=== PATIENT | female | born 1945 | race Caucasian/White ===

== ENCOUNTER → 2018-03-13 07:49 | Outpatient (CLI) | payer MEDICARE, OTHER, SELFPAY | PROVIDERS: Family Provider Internal Medicine; PCP Internal Medicine; Visit Provider Internal Medicine | DX: R09.89 Other specified symptoms and signs involving the circulatory and respiratory systems (principal) | CPT/HCPCS: 93880 ==

== ENCOUNTER → 2018-08-17 14:30 | Outpatient (CLI) | payer MEDICARE, OTHER, SELFPAY ==
[2017-07-14 15:48] VITALS: BMI 27.5
--- NOTE | 2018-08-17 14:36 | RAD_ITS ---
STUDY: X-RAY CHEST REASON FOR EXAM: Female, 72 years old. Cough. History of bronchitis. TECHNIQUE: PA and lateral views of the chest. COMPARISON: PA and lateral chest x-ray March 08, 2016; CTA chest/thorax July 14, 2017 FINDINGS: The lungs are poorly expanded, and there is generalized crowding with minor bibasilar subsegmental atelectasis. No lobar consolidation. There is no demonstrated pleural abnormality. Normal size heart. Normal mediastinum and marie. Normal visualized pulmonary arteries. Normal visualized aortic arch and descending thoracic aorta. There are stable multilevel degenerative changes of the visualized thoracic spine. 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 Surgical clips of prior cholecystectomy project in the right upper quadrant of the abdomen. RAD/Chest PA and Lateral IMPRESSION: Poor inspiratory effort with crowding and minor bibasilar atelectasis. Electronically Signed: Raul Felder MD at 14:43 EST , Service support ,
--- OUTSIDE RECORDS SUMMARY | 2018-10-22 09:39 | XMS RPT_ITS | Continuity of Care Document ---
:1945 Author Organization [facility] Address [facility] [address] [place] [address] Phone Care Team Providers Name Role Phone Lorena Arana DO Unavailable Trang PIEDRA, Dr. Cooper Unavailable Guido Jacinto Unavailable Taylor PIEDRA, Jin Becerril Unavailable [facility], [facility] Unavailable Tejal PIEDRA, Stuart Hensley Unavailable Dr. John Mcclain DO Unavailable Rosales PIEDRA, Stuart Sandra Unavailable Eliseo Mcgarry Unavailable Terese Nunez Unavailable Unavailable ANDREA Manzano Unavailable Unavailable Iveth Delgado Unavailable Unavailable Long Helen MENDEZ Unavailable Unavailable SlaZo daniels LPN Unavailable Unavailable Gladis Redmond Unavailable Unavailable Terri Hernandez Unavailable Unavailable Unavailable Unavailable Problems Name Dates Details Abdominal pain, acute, right lower quadrant (R10.31, 789.03) Status: Active Abnormal lung sounds (R09.89, 786.7) Status: Active Abnormal lung sounds (R09.89, 786.7) Status: Active Abnormal mammogram (R92.8, 793.80) Status: Active Abortions/Miscarriages Comments: Miscarriages, 2 Status: Active Acute recurrent ethmoidal sinusitis (J01.21, 461.2) Status: Active Allergic rhinitis (J30.9, 477.9) 2011 Comments: will get on claritin and nasal steriod spray Status: Active Allergy to contrast media (used for diagnostic x-rays) (Z91.041, V15.08) Status: Active Annual Medicare Phyiscal WITHOUT abnormal findings (Renamed from Encounter for general adult medical examination without abnormal findings) (Z00.00, V70.9) Status: Active Annual Medicare Phyiscal WITHOUT abnormal findings (Renamed from Encounter for general adult medical examination without abnormal findings) (Z00.00, V70.9) Status: Active Arthralgia of multiple sites (M25.50, 719.49) Status: Active Arthritis (M19.90, 716.90) 1995 Status: Active Bilateral carotid bruits (R09.89, 785.9) Status: Active Bladder Problems Comments: Bladder repair x2 Status: Active Bladder prolapse, female, acquired (N81.10, 618.01) Comments: s/p surgery not going back for sling Status: Active BMI 26.0-26.9,adult (Z68.26, V85.22) Status: Active BMI 26.0-26.9,adult (Z68.26, V85.22) Status: Active BMI 27.0-27.9,adult (Z68.27, V85.23) Status: Active BMI 28.0-28.9,adult (Z68.28, V85.24) Status: Active Breast cancer screening (Z12.31, V76.10) Status: Active Breast screening (Z12.39, V76.10) Status: Active Bronchitis (J40, 490) Status: Active Carotid stenosis, bilateral (I65.23, 433.10) Comments: mild R and moderate L- take asa 81mg daily03/18 last doppler Status: Active Chest pain (R07.9, 786.50) Status: Active Chronic GERD (K21.9, 530.81) Status: Active Chronic nonallergic rhinitis (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.0, 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.0) Status: Active Chronic sinusitis (J32.9, 473.9) Comments: with randall Bullosa , recent ER visit for sinus infection given z pack Status: Active Cough (R05, 786.2) Status: Active Cough (R05, 786.2) Comments: improving,needs ongoing Pul function testing Status: Active Cough (R05, 786.2) Status: Active Degenerative Disc Disease - 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.52) Status: Active Deliveries (Parity) Comments: 2 Status: Active Diabetes mellitus type 2, uncontrolled, without complications (E11.65, 250.02) Status: Active Diabetes mellitus type II, controlled, with no complications (E11.9, 250.00) Status: Active 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, 722.10) Comments: sees comphrensive pain management in [place]- dr poole-- s/p injection recently Status: Active Dry skin (L85.3, 701.1) Status: Active Dysuria (R30.0, 788.1) Status: Active Dysuria (R30.0, 788.1) Comments: recent uti - having some residual dysuria will ck ua and cx again ( last infection ua unimpressive but cx post) Status: Active Elevated blood-pressure reading without diagnosis of hypertension (R03.0, 796.2) Comments: i think related to pain right now -- s/p B/L TKR 3mo and HNP lumbar flare as well Status: Active Elevated LFTs (Renamed from Elevated liver function tests) (R94.5, 790.6) Status: Active Encounter for annual general medical examination with abnormal findings in adult (Z00.01, V70.0) Status: Active Encounter for screening for malignant neoplasm of colon (Renamed from Special screening for malignant neoplasms, colon) (Z12.11, V76.51) Status: Active Encounter for screening for malignant neoplasm of colon (Renamed from Special screening for malignant neoplasms, colon) (Z12.11, V76.51) Status: Active Encounter for screening mammogram for breast cancer (Renamed from Encounter for screening mammogram for malignant neoplasm of breast) (Z12.31, V76.12) Status: Active Encounter for screening mammogram for breast cancer (Renamed from Encounter for screening mammogram for malignant neoplasm of breast) (Z12.31, V76.12) Status: Active Family history of brain aneurysm (V17.1) Status: Active Fatty liver (K76.0, 571.8) Status: Active Female bladder prolapse (N81.10, 618.01) Comments: refer tjo dr Jacinto Status: Active Goiter (E04.9, 240.9) Status: Active Hematuria (R31.9, 599.70) Comments: 05/25/17-Trace of blood Status: Active Hiatal hernia (K44.9, 553.3) Status: Active History of Helicobacter pylori infection (Z86.19, V12.09) Comments: scope end 2013 Dr. Ventura Status: Active Hot flashes (R23.2, 782.62) Status: Active Influenza vaccination declined (Renamed from Refused influenza vaccine) (Z28.21, V64.06) Status: Active Insulin resistance (E88.81, 277.7) Status: Active Irritable bowel syndrome (K58.9, 564.1) Comments: stable Status: Active Irritable bowel syndrome with diarrhea (K58.0, 564.1) Status: Active Last Menstrual Period 1973 Status: Active Localized, primary osteoarthritis of lower leg (M17.10, 715.16) Status: Active Low back pain potentially associated with radiculopathy (M54.5, 724.2) Status: Active Mixed hyperlipidemia (E78.2, 272.2) Comments: recomending start fish oil she purchased and clean up dietoff statins since surgery 05/18 Status: Active Need for prophylactic vaccination and inoculation against influenza (Renamed from Need for immunization against influenza) (Z23, V04.81) Status: Active Nonsmoker (Z78.9, V49.89) Status: Active Nonsmoker (Z78.9, V49.89) Status: Active Nutritional counseling (Z71.3, V65.3) Status: Active Osteoarthritis (M19.90, 715.90) Status: Active Osteoarthritis, generalized (M15.9, 715.00) Comments: planning on TKR- b/l in may with dr royal Status: Active Osteopenia (M85.80, 733.90) Comments: dexa up to date - last one 2014 Status: Active Other cardiac sounds (R01.2, 785.3) Status: Active Other intervertebral disc degeneration, lumbar region (M51.36, 722.52) Comments: going to get injections soon from pain management in [place] Status: Active Pain of right hand (M79.641, 729.5) Status: Active Palpitations (R00.2, 785.1) Status: Active Pneumococcal vaccination given (Z23, V06.6) Status: Active Postmenopausal (Z78.0, V49.81) Status: Active Post-menopausal (Z78.0, V49.81) Status: Active Postmenopausal (Renamed from Postmenopausal status) (Z78.0, V49.81) Status: Active Pregnancies () Comments: 4 Status: Active Reflux gastritis (K29.60, 535.40) Status: Active Retinal hemorrhage, bilateral (H35.63, 362.81) Comments: seeing Retinol specialist in [place] Status: Active Sinus congestion (R09.81, 478.19) Comments: worsening with surgery pending Status: Active Sinusitis, acute (J01.90, 461.9) Status: Active SOB (shortness of breath) (R06.02, 786.05) Status: Active SOB (shortness of breath) on exertion (R06.02, 786.05) -Apr-2012 Comments: worked in [employer] for years, recent chest with copd, will get pft's treat as if COPD flareMy heart races and I feel out of breath all the time. I t is worse recently but has been ongoing for a wh ile-- all worked up in past - all negative- stress test and echo all normal-- symbicort helps breathing but it gets worse when laying down -- gerd related - on PPi and symbicort - Status: Active Thyroid nodule (E04.1, 241.0) Comments: endo states stable/ no significant change- seeing rene - Status: Active Thyroid nodule (E04.1, 241.0) Comments: followed by management rep Status: Active Unspecified Diagnosis Status: Active Unspecified Diagnosis Status: Active Unspecified Diagnosis Status: Active Unspecified Diagnosis Status: Active Unspecified Diagnosis Status: Active Urgency of urination (R39.15, 788.63) Status: Active UTI (urinary tract infection) (N39.0, 599.0) Comments: >100,000 enterococus Status: Active UTI symptoms (R39.9, 788.99) Status: Active Vaginal irritation (N89.8, 623.9) Comments: i think most of irrition coming from the prolaspe itself will treat yeast empirically bc of rubbing adnheat to prevent complication for surgery to be cancelled Status: Active Vitamin D deficiency, unspecified (E55.9, 268.9) Comments: increase rx to twice weekly-- now once weekly Status: Active Medications Name Dates Details Albuterol Sulfate (2.5 MG/3ML) 0.083% Inhalation Nebulization Solution 1 (one) Nebulized Soln q6hrs for 0 days Quantity: 1 {Package} Refills: 6 Ordered:17-Aug-2018 Iveth Delgado Start : 17-Aug-2018 Active CLIMARA PRO, 0.045-0.015MG/DAY (Transdermal Patch Weekly) 1 Patch Weekly weekly for 0 days Quantity: 4 {Patch_Weekly} Refills: 3 Ordered:19-Jun-2008 Iveth Manzano LPN Start : 19-Jun-2008 Active Medrol 4 MG Oral Tablet Therapy Pack 1 (one) Milligram TAD for 0 days Quantity: 1 {Package} Refills: 0 Ordered:17-Aug-2018 Iveth Delgado Start : 17-Aug-2018 Active OMEPRAZOLE, 20MG (Oral Capsule Delayed Release) [address] bid for 0 days Quantity: 30 {Capsule} Refills: 2 Ordered:21-Nov-2013 Jose Arana DO, DO, Kathleen Start : 21-Nov-2013 Active Simvastatin 40 MG Oral Tablet 1 Tablet qd for 0 days Quantity: 30 {Tablet} Refills: 6 Ordered:18-Apr-2017 Jose Arana DO, DO, Kathleen Start : 18-Apr-2017 Active Vitamin D3 49891 UNIT Oral Capsule 1 Capsule once a week for 0 days Quantity: 8 {Capsule} Refills: 5 Ordered:09-Feb-2018 Jose Arana DO, DO, Kathleen Start : 09-Feb-2018 Active Zithromax Z-Priyanka 250 MG Oral Tablet 1 (one) Tablet TAD for 0 days Quantity: 1 {Package} Refills: 0 Ordered:17-Aug-2018 Iveth Delgado Start : 17-Aug-2018 Active ACTONEL, 150MG (Oral Tablet) 1 (one) Tablet q month for 0 days Quantity: 3 {Tablet} Refills: 3 Ordered:10-Jun-2010 Iveth Manzano LPN Start : 04-Jul-2008 End : 10-Jun-2010 Inactive Augmentin 875-125 MG Oral Tablet 1 (one) Tablet bid for 14 days Quantity: 28 {Tablet} Refills: 0 Ordered:11-Jul-2017 Iveth Delgado Start : 11-Jul-2017 End : 25-Jul-2017 Inactive AZO Cranberry Urinary Tract 250-60 MG Oral Capsule 1 (one) Capsule Capsule TAd for 0 days Quantity: 30 {Capsule} Refills: 0 Ordered:09-Jul-2016 Iveth Manzano LPN Start : 16-Mar-2016 End : 09-Jul-2016 Inactive BACTRIM DS, 800-160MG (Oral Tablet) 1 Tablet bid for 7 days Quantity: 14 {Tablet} Refills: 0 Ordered:27-Nov-2010 Lis COOPERMirian Start : 27-Nov-2010 End : 04-Dec-2010 Inactive BUDESONIDE, 32MCG/ACT (Nasal Suspension) 1 (one) Suspension Suspension 2 sprays each nostril daily for 0 days Quantity: 1 {Each} Refills: 3 Ordered:24-Oct-2014 LUIS Chance Start : 08-Aug-2014 End : 24-Oct-2014 Inactive Cefadroxil 500 MG Oral Capsule 1 (one) Capsule bid for 7 days Quantity: 14 {Capsule} Refills: 0 Ordered:27-Feb-2016 Mikkicomfortclarissa COOPERMirian Start : 27-Feb-2016 End : 05-Mar-2016 Inactive Cipro 500 MG Oral Tablet 1 (one) Tablet bid for 7 days Quantity: 14 {Tablet} Refills: 0 Ordered:19-Mar-2016 Conchisclarissa COOPERMirian Start : 19-Mar-2016 End : 26-Mar-2016 Inactive CIPRO, 500MG (Oral Tablet) 1 (one) Tablet Twice daily for 0 days Quantity: 20 {Tablet} Refills: 0 Ordered:19-Apr-2007 Iveth Manzano LPN Start : 19-Apr-2007 End : 20-Jun-2007 Inactive Ciprofloxacin HCl 500 MG Oral Tablet 1 (one) Tablet PO BID for 3 days Quantity: 6 {Tablet} Refills: 0 Ordered:13-Dec-2017 Iveth Delgado Start : 13-Dec-2017 End : 16-Dec-2017 Inactive CLARITIN, 10MG (Oral Capsule) 1 (one) Capsule Capsule daily for 0 days Quantity: 30 {Capsule} Refills: 0 Ordered:24-Oct-2014 LUIS Chance Start : 08-Aug-2014 End : 24-Oct-2014 Inactive CLINDAMYCIN HCL, 300MG (Oral Capsule) 1 (one) Capsule q6hrs for 7 days Quantity: 28 {Capsule} Refills: 0 Ordered:27-Jan-2016 Mirian Hartley CNP Start : 27-Jan-2016 End : 03-Feb-2016 Inactive Dexilant 60 MG Oral Capsule Delayed Release 1 (one) Capsule DR Capsule DR daily for 28 days Quantity: 28 {QS} Refills: 3 Ordered:09-Jul-2016 Iveth Manzano LPN Start : 27-Jan-2016 End : 09-Jul-2016 Inactive Diflucan 150 MG Oral Tablet 1 (one) Tablet once, repeat in 2 days if not better for 5 days Quantity: 2 {Tablet} Refills: 0 Ordered:21-Dec-2017 Jose Arana DO, DO, Kathleen Start : 21-Dec-2017 End : 26-Dec-2017 Inactive DIFLUCAN, 100MG (Oral Tablet) 1 (one) Tablet Daily for 0 days Quantity: 14 {Tablet} Refills: 0 Ordered:18-Dec-2007 Iveth Manzano LPN Start : 18-Dec-2007 End : 26-Jan-2008 Inactive DYMISTA, 137-50MCG/ACT (Nasal Suspension) 1 Suspension each nostril daily for 0 days Quantity: 1 {Suspension} Refills: 0 Ordered:21-Nov-2013 Helen Grayson LPN Start : 20-Nov-2012 End : 21-Nov-2013 Inactive Flonase 50 MCG/ACT Nasal Suspension 2 (two) spray each nostrilqd for 30 days Quantity: 1 {Sachet} Refills: 0 Ordered:29-Apr-2016 Jose Arana DO, DO, Kathleen Start : 29-Apr-2016 End : 29-May-2016 Inactive GUAIATUSSIN AC, 100-10MG/5ML (Oral Syrup) 1 Syrup 1 tsp qhs for 0 days Quantity: 6 {Ounce(s)} Refills: 0 Ordered:03-Oct-2007 Iveth Manzano LPN Start : 03-Oct-2007 End : 18-Dec-2007 Inactive HydrOXYzine Pamoate 25 MG Oral Capsule 1 (one) Capsule Capsule q 8 hr prn for 0 days Quantity: 30 {Capsule} Refills: 0 Ordered:09-Jul-2016 Iveth Manzano LPN Start : 08-Apr-2016 End : 09-Jul-2016 Inactive Comments:substituted for atarax LAC-HYDRIN, 12% (External Lotion) TAD Lotion QD- BID PRN for 0 days Quantity: 1 {LARGE_BOTTLE} Refills: 0 Ordered:13-Nov-2012 Iveth Manzano LPN Start : 06-Oct-2011 End : 13-Nov-2012 Inactive Comments:APPLY ALL OVER BODY WHEN DAMP AFTER SHOWER AVOID- MOUTH AND NARES AND EYES /FACE Levaquin 500 MG Oral Tablet 1 Tablet daily for 10 days Quantity: 10 {Tablet} Refills: 0 Ordered:18-Jan-2017 MonroehuyTerri Start : 18-Jan-2017 End : 28-Jan-2017 Inactive LOTRISONE, 1-0.05% (External Cream) APPLY TO AFFECTED AREA UNDER Cream BID for 0 days Quantity: 45 {Cream} Refills: 1 Ordered:13-Nov-2012 Iveth Manzano LPN Start : 06-Oct-2011 End : 13-Nov-2012 Inactive Comments:--UNDER BREAST AND LEG USE SPARINGLY METAXALONE, 800MG (Oral Tablet) 1 Tablet tid prn for 0 days Quantity: 30 {Tablet} Refills: 0 Ordered:21-Nov-2013 Helen Grayson LPN Start : 22-May-2013 End : 21-Nov-2013 Inactive Mucinex 600 MG Oral Tablet Extended Release 12 Hour 1 (one) Tablet ER 12HR Tablet ER 12HR bid for 0 days Quantity: 60 {Tablet} Refills: 0 Ordered:09-Jul-2016 Iveth Manzano LPN Start : 05-Mar-2016 End : 09-Jul-2016 Inactive NEXIUM, 40MG (Oral Capsule Delayed Release) 1 (one) Capsule DR Daily for 0 days Refills: 0 Ordered:07-Jul-2011 Iveth Manzano LPN Start : 11-Dec-2010 End : 07-Jul-2011 Inactive ONGLYZA, 5MG (Oral Tablet) 1 Tablet qd for 0 days Quantity: 30 {Tablet} Refills: 3 Ordered:07-Jul-2011 Iveth Manzano LPN Start : 28-Apr-2011 End : 07-Jul-2011 Inactive PredniSONE 10 MG Oral Tablet 1 (one) Tablet bid x 3 days, 1 daily x 3 days, 1/2 daily x 3 days for 0 days Quantity: 12 {Tablet} Refills: 0 Ordered:27-Oct-2017 Iveth Manzano LPN Start : 11-Jul-2017 End : 27-Oct-2017 Inactive Comments:with food PRENATABS FA (Oral Tablet) 1 QD Inactive PRILOSEC OTC, 20MG (Oral Tablet Delayed Release) [address] QD for 0 days Refills: 0 Ordered:28-Apr-2011 Iveth Manzano LPN Start : 07-Oct-2010 End : 28-Apr-2011 Inactive PRILOSEC OTC, 20MG (Oral Tablet Delayed Release) 1 qd for 0 days Refills: 0 Ordered:08-Feb-2008 Iveth Manzano LPN End : 08-Feb-2008 Inactive PULMICORT FLEXHALER, 180MCG/ACT (Inhalation Inhaler) 1 (one) Inhaler Twice daily for 0 days Quantity: 1 {Inhaler} Refills: 0 Ordered:20-Jun-2007 Iveth Manzano LPN Start : 20-Jun-2007 End : 19-Jun-2008 Inactive Singulair 10 MG Oral Tablet 1 (one) Tablet Tablet qhs for 0 days Quantity: 30 {Tablet} Refills: 6 Ordered:29-Apr-2016 Jose Arana DO, DO, Kathleen Start : 29-Apr-2016 End : 29-Apr-2016 Inactive Comments:heart races SOMA, 350MG (Oral Tablet) 1 Tablet tid prn for 0 days Quantity: 30 {Tablet} Refills: 0 Ordered:28-Apr-2011 Iveth Manzano LPN Start : 04-Jan-2011 End : 28-Apr-2011 Inactive Comments:thirty Symbicort 160-4.5 MCG/ACT Inhalation Aerosol 2 (two) Aerosol bid for 0 days Quantity: 1 {Inhaler} Refills: 0 Ordered:09-Jul-2016 Iveth Manzano LPN Start : 27-Jan-2016 End : 09-Jul-2016 Inactive VASCEPA, 1GM (Oral Capsule) 4 Capsule qd for 30 days Quantity: 120 {Capsule} Refills: 4 Ordered:21-Nov-2013 Helen Grayson LPN Start : 27-Aug-2013 End : 21-Nov-2013 Inactive VYTORIN, 10-20MG (Oral Tablet) 1 (one) Tablet Daily for 0 days Quantity: 30 {Tablet} Refills: 2 Ordered:10-Jun-2010 Iveth Manzano LPN Start : 20-Jun-2007 End : 10-Jun-2010 Inactive WELCHOL, 625MG (Oral Tablet) 3 (three) Tablet bid for 0 days Quantity: 180 {Tablet} Refills: 3 Ordered:12-Feb-2013 Iveth Manzano LPN Start : 08-Jun-2012 End : 12-Feb-2013 Inactive Zetia 10 MG Oral Tablet 1 (one) Tablet Tablet qd for 30 days Quantity: 30 {Tablet} Refills: 3 Ordered:11-Oct-2016 MonroehuyTerri Start : 20-Jun-2015 End : 11-Oct-2016 Inactive Aspirin Adult Low Dose 81 MG Oral Tablet Delayed Release 1 (one) Tablet qd for 360 days Quantity: 30 {Tablet} Refills: 0 Ordered:07-Dec-2017 Gladis Redmond Start : 27-Jul-2017 End : 07-Dec-2017 Discontinued BENTYL, 20MG (Oral Tablet) 1 (one) Tablet Tablet q 8 hr prn abd pain for 0 days Quantity: 60 {Tablet} Refills: 0 Ordered:10-Nov-2015 Iveth Manzano LPN Start : 10-Nov-2015 End : 03-Mar-2018 Discontinued Comments:This order discontinued per [facility]. CIPRO, 250MG (Oral Tablet) 1 (one) Tablet Twice daily for 0 days Quantity: 20 {Tablet} Refills: 0 Ordered:09-Jan-2007 Abril Stoner Start : 09-Jan-2007 End : 19-Jan-2007 Discontinued ERGOCALCIFEROL, 40265UGLL (Oral Capsule) 1 Capsule q week for 0 days Quantity: 24 {Capsule} Refills: 3 Ordered:06-Oct-2011 Jose Arana DO, DO, Kathleen Start : 06-Oct-2011 End : 06-Oct-2011 Discontinued MetFORMIN HCl ER 500 MG Oral Tablet Extended Release 24 Hour 1 (one) Tablet ER 24HR daily for 0 days Quantity: 30 {Tablet} Refills: 4 Ordered:10-Feb-2016 Zo Gómez LPN Start : 05-Jan-2016 End : 10-Feb-2016 Discontinued PredniSONE 20 MG Oral Tablet 3 (three) Tablet Tablet 6 hr after contrast given for 0 days Quantity: 3 {Tablet} Refills: 0 Ordered:25-May-2017 Zo Gómez LPN Start : 17-Jan-2017 End : 25-May-2017 Discontinued ProAir HFA 108 (90 Base) MCG/ACT Inhalation Aerosol Solution 2 (two) Aerosol Soln Aerosol Soln qhs for 0 days Quantity: 1 {Inhaler} Refills: 0 Ordered:10-Feb-2016 Zo Gómez LPN Start : 19-Nov-2014 End : 10-Feb-2016 Discontinued ProAir RespiClick 108 (90 Base) MCG/ACT Inhalation Aerosol Powder Breath Activated 2 (two) puff q 6 hrs prn for 0 days Quantity: 1 {Box} Refills: 0 Ordered:07-Dec-2017 Gladis Redmond Start : 11-Jul-2017 End : 07-Dec-2017 Discontinued PROTONIX, 40MG (Oral Tablet Delayed Release) 1 (one) Tablet DR Daily for 0 days Refills: 0 Ordered:20-Jun-2007 Kalyn Matamoros Start : 20-Jun-2007 End : 03-Oct-2007 Discontinued VICODIN, 5-500MG (Oral Tablet) 1 Tablet q 6 hr prn for 0 days Quantity: 30 {Tablet} Refills: 0 Ordered:04-Jan-2011 Iveth Manzano LPN Start : 04-Jan-2011 End : 13-Nov-2012 Discontinued Comments:This order discontinued per [facility]. VICOPROFEN, 7.5-200MG (Oral Tablet) 1 Tablet q 6 hr prn for 0 days Quantity: 30 {Tablet} Refills: 0 Ordered:03-Aug-2018 Iveth Manzano LPN Start : 18-Nov-2011 End : 03-Aug-2018 Discontinued Comments:This order discontinued per [facility]. ZITHROMAX Z-PRIYANKA, 250MG (Oral Tablet) tad Tablet qd for 0 days Quantity: 1 {Package} Refills: 0 Ordered:19-Nov-2014 Julieta Vance LPN Start : 13-Nov-2014 End : 19-Nov-2014 Discontinued Allergies and Adverse Reactions Name Dates Details Animal Dander (Allergy) Status: Active Nuts (Allergy) Status: Active Tetracyclines (Allergy) Status: Active Trees (Allergy) Status: Active Past Medical History Name Dates Details Abdominal pain (R10.9, 789.00) Comments: lower abdomenafter internal pelvic procedure Status: Inactive as of 24-Oct-2014 Abnormal chest xray (R93.89, 793.2) Comments: showing copd, last spirometry Aug 2014 was normal stable on symbicort proair respiclick Status: Inactive as of 09-Jul-2016 Abnormal EKG (R94.31, 794.31) Status: Inactive as of 09-Jul-2016 Abnormal finding of blood chemistry, unspecified (R79.9, 790.6) Status: Inactive as of 09-Jul-2016 Abnormal findings on diagnostic imaging of other specified body structures (R93.8, 793.99) Status: Inactive as of 08-Apr-2016 Abnormal glucose tolerance test (R73.09, 790.22) Status: Inactive as of 08-Apr-2016 Acid indigestion (536.8) Status: Inactive as of 03-Aug-2018 Acute pain of right knee (M25.561, 719.46) Comments: cant do nsaid with bleeding eye -- so ice iceon sched for b/l knee replacmetn Status: Inactive as of 03-Aug-2018 Allergic rhinitis (J30.9, 477.9) Status: Inactive as of 03-Aug-2018 Aspiration pneumonia (J69.0, 507.0) Comments: Ate pizza before bedtime Status: Inactive as of 08-Apr-2016 Back pain (M54.9, 724.5) Comments: sees Dr. [facility] Status: Inactive as of 09-Jul-2016 Bilateral low back pain without sciatica (M54.5, 724.2) Status: Inactive as of 08-Apr-2016 BMI 25.0-25.9,adult (Z68.25, V85.21) Status: Inactive as of 27-Jul-2017 BMI 27.0-27.9,adult (Z68.27, V85.23) Status: Inactive as of 03-Aug-2018 Bone pain (M89.8X9, 733.90) Status: Resolved as of 27-Oct-2017 Bronchitis (J40, 490) Status: Resolved as of 11-Dec-2008 Bronchospasm (J98.01, 519.11) Status: Inactive as of 25-Sep-2015 Calf pain (M79.669, 729.5) Comments: continue Ibuprofen and home vicoden if needed - r/o clot - if pain persists have her refered to PT. Hx of chronic back pain that is also worsening. Hx of pain doc. Pt to follow up if persists - Status: Resolved as of 11-Dec-2008 Candidiasis, unspecified (B37.9, 112.9) Comments: will refer to Dr Signs if no improvement after tx sugars Status: Resolved as of 11-Dec-2008 Chest pain (R07.9, 786.59) Status: Resolved as of 27-Apr-2012 Colicky RUQ abdominal pain (R10.11, 789.01) Status: Inactive as of 08-Apr-2016 Cough (R05, 786.2) Status: Inactive as of 09-Jul-2016 Diarrhea (R19.7, 787.91) Status: Inactive as of 12-Feb-2013 Diarrhea, unspecified type (R19.7, 787.91) Comments: scope 5yrs agosuspsect IBS-- Status: Inactive as of 03-Aug-2018 Diverticulitis (K57.92, 562.11) 2004 Status: Resolved as of 14-Jan-2009 Diverticulosis of colon (K57.30, 562.10) Status: Inactive as of 03-Aug-2018 DRY SKIN DERMATITIS (698.8) Comments: SEVERE DRY SKIN Status: Inactive as of 24-Oct-2014 Dysphagia, unspecified (R13.10, 787.20) Comments: s/p dilitation-- rec ppi rest of life Status: Resolved as of 07-Oct-2010 Dysuria (R30.0, 788.1) 13-Mar-2012 Status: Inactive as of 24-Oct-2014 Encounter for Medicare annual wellness exam (Z00.00, V70.0) Status: Inactive as of 24-Oct-2014 Epigastric pain (R10.13, 789.06) Comments: h/o h pyori Status: Inactive as of 24-Oct-2014 Eustachian tube dysfunction (H69.80, 381.81) Status: Inactive as of 09-Jul-2016 Facial pressure (R68.89, 780.99) Status: Inactive as of 27-Jul-2017 FATIGUE (R53.83, 780.79) Comments: and snore Status: Inactive as of 09-Jul-2016 Fever, unspecified (R50.9, 780.60) Status: Resolved as of 13-Apr-2012 GERD (gastroesophageal reflux disease) (K21.9, 530.81) Status: Inactive as of 09-Jul-2016 Grieving (F43.21, 309.0) Status: Resolved as of 09-Feb-2018 Hair abnormality (L67.9, 704.2) Comments: DR Montes De Oca PUT HER ON VITAMINS Status: Inactive as of 25-Sep-2015 Headache (R51, 784.0) 1980 Status: Inactive as of 24-Oct-2014 Hematuria (R31.9, 599.7) Status: Resolved as of 11-Dec-2008 Hematuria, unspecified (R31.9, 599.70) Status: Inactive as of 27-Oct-2017 Herpes Zoster 2004 Comments: Laura Status: Inactive as of 24-Oct-2014 Hyperlipidemia (E78.5, 272.4) Status: Inactive as of 09-Jul-2016 Knee pain (M25.569, 719.46) Comments: sees Andre at [facility] Status: Inactive as of 09-Jul-2016 Low back pain (M54.5, 724.2) 1997 Status: Resolved as of 11-Dec-2008 Low HDL (under 40) (E78.6, 272.5) Status: Inactive as of 24-Oct-2014 Mammogram 2004 Status: Inactive as of 24-Oct-2014 Muscle Spasm (M62.838, 728.85) Status: Inactive as of 09-Jul-2016 Nausea (R11.0, 787.02) Status: Inactive as of 12-Feb-2013 Need for vaccination against Streptococcus pneumoniae (Z23, V03.82) Status: Inactive as of 24-Oct-2014 Neoplasm of uncertain behavior of skin (D48.5, 238.2) Status: Inactive as of 24-Oct-2014 Osteopenia (M85.80, 733.90) Comments: LAST DEXA 07-10 Status: Resolved as of 06-Oct-2011 Otalgia, unspecified ear (H92.09, 388.70) Status: Inactive as of 24-Oct-2014 Pain (R52, 780.96) Comments: back sees pain specilaist, [facility] [place] Status: Inactive as of 24-Oct-2014 Pain in unspecified joint (M25.50, 719.40) Status: Inactive as of 09-Jul-2016 Pain of lower leg, unspecified laterality (M79.669, 729.5) 12-Oct-2010 Comments: - L- Knee Status: Inactive as of 12-Feb-2013 Pain of right heel (729.5) Comments: not in heel just on extensor surface of foot-- pt going to see mixing tumbler operator in [place] - dr ward -- willl make own appt Status: Inactive as of 24-Oct-2014 Pain, face, atypical (G50.1, 350.2) Status: Inactive as of 25-Sep-2015 Paresthesia (R20.2, 782.0) Status: Resolved as of 11-Dec-2008 Pelvic pain in female (R10.2, 625.9) Status: Inactive as of 09-Feb-2018 Pre-operative general physical examination (Z01.818, V72.83) Status: Inactive as of 03-Aug-2018 Right hand paresthesia (R20.2, 782.0) Status: Inactive as of 09-Feb-2018 Right wrist pain (M25.531, 719.43) Status: Inactive as of 09-Jul-2016 Screening for malignant neoplasm of cervix (Z12.4, V76.2) Status: Inactive as of 12-Feb-2013 Sensation of pressure in bladder area (R39.89, 596.89) Status: Inactive as of 03-Aug-2018 Sinusitis, bacterial (J32.9, 473.9) Status: Inactive as of 27-Jul-2017 Tinea corporis (B35.4, 110.5) Status: Resolved as of 17-May-2012 Tooth abscess (K04.7, 522.5) Comments: ??-- rev dr brown note-- also rev ct sinus that i ordered -- she cant into dentist for antoher 3 -4 weeks Status: Inactive as of 09-Jul-2016 Ultrasound scan abnormal (R93.8, 793.99) Status: Inactive as of 09-Jul-2016 Unspecified Diagnosis Status: Inactive as of 24-Oct-2014 Unspecified Diagnosis Status: Inactive as of 24-Oct-2014 Urinary frequency (R35.0, 788.41) Comments: resolved Status: Inactive as of 12-Feb-2013 Urinary frequency (R35.0, 788.41) Comments: will send culture if pos, will treat Status: Inactive as of 09-Jul-2016 Urinary frequency (R35.0, 788.41) Status: Inactive as of 03-Aug-2018 Vaginal itching (N89.8, 698.1) Status: Resolved as of 09-Feb-2018 Weight gain (R63.5, 783.1) Comments: centralordered 24 hr urine cortisol and serum ACTH Status: Resolved as of 14-Jan-2009 Well woman exam (Z01.419, V72.31) Status: Inactive as of 12-Feb-2013 Wheeze (R06.2, 786.07) Comments: on symbicort already for atelectasis Status: Inactive as of 24-Oct-2014 Wound discharge (T14.8XXA, 879.8) Comments: resolved treated with duriceff Status: Inactive as of 08-Apr-2016 Procedures Procedure Dates Details Appendectomy Completed Arthroscopy of Knee Completed Comments: lt 01/20/11 Cholecystectomy (Gall Bladder Removal) Completed Colonoscopy Completed 2002 Eye sx retinal Completed Comments: lt 10/16 Hysterectomy, Total Completed Knee Replacement, Total Completed Comments: lt and rt 05/09/18 ovary removed Completed Comments: 11/22/14 Sigmoidoscopy Completed 2002 Tonsillectomy Completed Date Value Details 15-Mar-2018 Carotid Duplex Ultrasound Result: Comments: See Note; NOTES: [facility] [address] [place] [address] Carotid Duplex Ultrasound 03/13/18 0758 MR#: [id number] Acct: [id number] Name: DINAH MILLS Rep #: [id number] : 1945 72 From: Dane Jones MD Attending Dr: Lorena Arana DO Status: REG CLI Ordering Dr: Lorena Arana DO Date: 03/13/18 Location: [facility] Sex: F C Admitte d: Reason For Study: carotid bruits Rt. Velocities/BP Lt. Velocities/BP Prox CCA 81.5/15.8 cm/sec. Prox CCA 96.2/21.7 cm/sec. Mid CCA 90.3/18.2 cm/sec. Mid CCA 95.6/22.3 cm/sec. Dist CCA 83.8/18.8 cm/sec. Dist CCA 95.0/24.0 cm/sec. Prox ICA 83.3/18.8 cm/sec. Prox ICA 89.1/17.6 cm/sec. Mid ICA 90.3/29.3 cm/sec. Mid ICA 102.0/28.1 cm/sec. Dist ICA 103.0/33.4 cm/sec. Dist ICA 133.0/51.1 cm/sec. Rt. ICA/CCA = 103.0/90.3=1.1. Lt. ICA/CCA = 133.0/95.6=1.4. Prox ECA 73.3/9.38 cm/sec. Prox ECA 90.9/8.21 cm/sec. Rt. Vert. 66.4/17.7 cm/sec. Lt. Vert. 49.5/14.9 cm/sec. Right Extracranial There is homoge neous, smooth atherosclerotic plaque noted in the right common carotid artery. There is homogeneous, smooth atherosclerotic plaque noted in the right internal carotid artery. There is intimal thickening but no significant atherosclerotic plaque noted in the right external carotid artery. Antegrade flow is noted in the right vertebral artery. Left Extracranial There is homogeneous, smooth atherosclero tic plaque noted in the left common carotid artery. There is homogeneous, smooth atherosclerotic plaque noted in the left internal carotid artery. There is intimal thickening but no significant atherosc lerotic plaque noted in the left external carotid artery. Antegrade flow is noted in the left vertebral artery. Interpretation Summary Mild (<50%) stenosis right extracranial internal carotid. Mild (<50%) stenosis left extracranial internal carotid. Flow within the vertebral arteries is antegrade bilaterally. Ordering Physician: Lorena Arana Referring Physician: Lorena Arana Performed By: Sheri Hayes, RDCS, RVT 03/15/18 0808 Date Dane Jones MD CC: Lorena Arana DO Date Dictated: 03/13/18 0758 Date Transcribed: 03/15/18 0808 Quill Cleaning Machine Operator: Signed 20-Jul-2017 12 Lead Electrocardiogram Result: Comments: See Note; NOTES: [facility] [address] [address] 12 Lead EKG 07/14/17 1635 MR#: [id number] Acct: [id number] Name: DINAH HICKMAN Rep #: [id number] : 1945 71 From: Urbano Tam MD Attending Dr: Status: REG ER Ordering Dr: Tyrel Gan MD Date: 07/14/17 Location: ED Sex: F C Admitted: Test Reason : SOB Blood Pressure : * / mmHG Vent. Rate : 093 BPM Atrial Rate : 093 BPM P-R Int : 142 ms QRS Dur : 080 ms QT Int : 370 ms P-R-T Axes : 034 013 058 degrees QTc Int : 460 ms Normal sinus rhythm Normal ECG Confirmed by OF URBANO REA MD ([id number]), state editor AMEYA CORONEL ([id number]) on 07/20/2017 1:51:50 PM Referred By: SAIDA Confirmed By:URBANO TAM MD 07/20/17 1351 Date Urbano Tam MD CC: Lorena Arana DO Signed 14-Jul-2017 Emergency Department Summary Result: Comments: See Note; NOTES: [facility] Medical Records Department [address] [place] [address] Emergency Department Summary 07/14/171952 MR#: [id number] Acct: [id number] Name: DINAH HICKMAN Rep #: [id number] : 1945 71 From: Renato Tijerina MD PCP: Lorena Arana DO Status: REG ER - ER Visit Summary Date of Service: 07/14/17 Chief Complaint: [] History of Present Illness: The patient is a 71 F [] Physical Examination: [] Test Results: [] Emergency Department Course and Treatment: [] Treatment Plan: [] Disposition: [] Impression: [] This note was generat ed with [employer] dictation software. It may contain incorrect words, spelling, and punctuation that were not noted in review of the chart prior to signing ED Disposition - Plan for ED Patient: Disposit ion: Home or Assisted Living Chief Complaint: Shortness of Breath Instructions: ED Sinusitis Abx Tx, ED Upper Resp Infec Abx Tx, ED Chest Pain NonCardiac Referrals: Lorena Arana DO [Primary Care Pro vider] - As Needed What to do if you have Problems For any increased pain, shortness of breath, bleeding, nausea or vomiting, chest pain, or any unexpected problems, contact your Primary Care Provid er. Call Doctors Registry ([phone]) or report to the closest Emergency Room. Call 911 if necessary. 07/14/171953 <Electronically signed by Renato Tijerina MD> Date Renato Tijerina MD Cosigner Signature (If Indicated): Date CC: Lorena Arana DO 14-Jul-2017 Emergency Department Summary Result: Comments: See Note; NOTES: [facility] Medical Records Department [address] [place] [address] Emergency Department Summary 07/14/17 1656 MR#: [id number] Acct: [id number] Name: HICKMANDINAH A Rep #: [id number] : 1945 71 From: Tyrel Gan MD PCP: Lorena Arana DO Status: REG ER ADDENDUM by Renato Tijerina MD on 07/14/17 at 1953 White count is 12.7 thousand with 70 se gs no bands. Electrode panel was marked for glucose 126. Troponin is less than 0.02. BNP is 14.9. CT a of the chest reveals a large hiatal hernia and fatty liver. There is no evidence of pulmonary embol us or pneumonia. Date Renato Tijerina MD cc: Lorena Arana DO * Signed - ER Visit Summary Date of Service: 07/14/17 Chief Complaint: Shortness of b reath History of Present Illness: The patient is a 71 F with shortness of breath over the past 2 weeks. Symptoms started with an upper respiratory infection and sinus symptoms, and then progressed to c hest congestion, cough, and yellow sputum. She also noticed her heart rate has been in the low 100s, and this is new for her. She also reports some left-sided chest pain around my heart&#34 ;. She saw her PCP earlier this week on Tuesday and was prescribed Augmentin and prednisone. She is also taking her inhalers, but her symptoms have not improved. She returned to her PCP today and had a d ose of Solu-Medrol. With her tachycardia, pain, and shortness of breath it sounds like they were concerned for a PE. They had ordered a CTA. She was referred to the emergency department for the imaging. She has a history of an allergy to iodine. Patient has a history of acid reflux, atelectasis, and pneumonia. She denies smoking history. Physical Examination: Afebrile. Heart rate 109. Blood pressure 152/92. 95% on room air. Patient appears nontoxic and in no acute distress. HEENT exam unremarkable on inspection. Heart slightly tachycardic but regular. Lungs show wheezing bilaterally, slightly wors e on the left. She has diminished breath sounds throughout all blackman. Extremities nontender with no edema. Skin normal in color. Alert and oriented. Test Results: EKG shows sinus rhythm at a rate of 9 3. No sign of acute ischemia or infarction. CBC, BMP, troponin, and BNP pending. CTA pending. Emergency Department Course and Treatment: Patient has already had Solu-Medrol. We also pretreated with Be nadryl and fluids. She received a DuoNeb treatment and aspirin while awaiting results. Laboratory studies and imaging results are all pending the time of this dictation. The oncoming physician, Dr. Elijah catalan will follow up on the results and make the appropriate disposition. Treatment Plan: Pending further evaluation. Disposition: Pending further evaluation. Impression: Pending further evaluation. This note was generated with [employer] dictation software. It may contain incorrect words, spelling, and punctuation that were not noted in review of the chart prior to signing ED Disposition - Plan for ED Patient: Chief Complaint: Shortness of Breath Referrals: Lorena Arana DO [Primary Care Provider] - What to do if you have Problems For any increased pain, shortness of breath, bleeding, naus ea or vomiting, chest pain, or any unexpected problems, contact your Primary Care Provider. Call ReplySend Registry ([phone]) or report to the closest Emergency Room. Call 911 if necessary. [phone] <Electronically signed by Tyrel Gan MD> Date Tyrel Gan MD Cosigner Signature (If Indicated): Date CC: Lorena Arana DO 14-Jul-2017 Emergency Department Summary Result: Comments: See Note; NOTES: [facility] Medical Records Department [address] [place] [address] Emergency Department Summary 07/14/17 1656 MR#: [id number] Acct: [id number] Name: DINAH HICKMAN Rep #: [id number] : 1945 71 From: Tyrel Gan MD PCP: Lorena Arana DO Status: REG ER - ER Visit Summary Date of Service: 07/14/17 Chief Complaint: Shortness of breath History of Present Illness: The patient is a 71 F with shortness of breath over the past 2 weeks. Symptoms started with an upper respiratory infection and sinus symptoms, and then progressed to chest c ongestion, cough, and yellow sputum. She also noticed her heart rate has been in the low 100s, and this is new for her. She also reports some left-sided chest pain around my heart. She saw her PCP earlier this week on Tuesday and was prescribed Augmentin and prednisone. She is also taking her inhalers, but her symptoms have not improved. She returned to her PCP today and had a dose of Solu-Medrol. With her tachycardia, pain, and shortness of breath it sounds like they were concerned for a PE. They had ordered a CTA. She was referred to the emergency department for the imaging. She h as a history of an allergy to iodine. Patient has a history of acid reflux, atelectasis, and pneumonia. She denies smoking history. Physical Examination: Afebrile. Heart rate 109. Blood pressure 152/9 2. 95% on room air. Patient appears nontoxic and in no acute distress. HEENT exam unremarkable on inspection. Heart slightly tachycardic but regular. Lungs show wheezing bilaterally, slightly worse on t he left. She has diminished breath sounds throughout all blackman. Extremities nontender with no edema. Skin normal in color. Alert and oriented. Test Results: EKG shows sinus rhythm at a rate of 93. No sign of acute ischemia or infarction. CBC, BMP, troponin, and BNP pending. CTA pending. Emergency Department Course and Treatment: Patient has already had Solu-Medrol. We also pretreated with Benadryl and fluids. She received a DuoNeb treatment and aspirin while awaiting results. Laboratory studies and imaging results are all pending the time of this dictation. The oncoming physician, Dr. Saida bailey l follow up on the results and make the appropriate disposition. Treatment Plan: Pending further evaluation. Disposition: Pending further evaluation. Impression: Pending further evaluation. This n ote was generated with [employer] dictation software. It may contain incorrect words, spelling, and punctuation that were not noted in review of the chart prior to signing ED Disposition - Plan for ED Britton hernandez: Chief Complaint: Shortness of Breath Referrals: Lorena Arana, DO [Primary Care Provider] - What to do if you have Problems For any increased pain, shortness of breath, bleeding, nausea or vomiting, chest pain, or any unexpected problems, contact your Primary Care Provider. Call ReplySend Registry ([phone]) or report to the closest Emergency Room. Call 911 if necessary. 07/14/17 1710 <Electronically signed by Tyrel Gan MD> Date Tyrel Gan MD Cosigner Signature (If Indicated): Date CC: Lorena Arana DO 14-Jul-2017 CTA Chest W/WO Contrast Result: Comments: See Note; NOTES: [facility] Imaging Services [address] [place] [address] CTA Chest W/WO Contrast MR#: [id number] Acct: [id number] Name: DINAH HICKMAN Rep #: [id number] : 1945 F 71 From: Eduard Montalvo MD PCP: Lorena Arana DO Status: REG ER Study: CTA Chest W/WO Contrast Date of Exam: 07/14/17 Exam# [id number] Ordering Dr: Tyrel Gan MD STUDY: CTA CHEST REASON FOR EXAM: Female, 71 years old. Short of breath RADIATION DOSAGE (If Supplied By Facility): CTDIvol = ( 12.91 ) mGy, DLP = ( 604.99 ) mGycm TECHNIQUE: The examination was performed with the intravenous administration of 75cc ml of Isovue 370 contrast material. Post-processing of the angiographic images was performed, with multiplanar reformation and 3D reconstruction. Individuali zed dose optimization techniques were used for this CT. COMPARISON: None. FINDINGS: Normal enhancement of the main pulmonary artery and right and left pulmonary ar teries. Normal enhancement of the bilateral peripheral pulmonary arteries. There is no demonstrated pulmonary embolism. There are atherosclerotic changes of the aorta without evidence for aneurysm. Th ere is no demonstrated aortic dissection. The heart size is normal. There is coronary artery calcification. Normal mediastinum. Normal hilar regions. Normal visualized trachea and bronchi. The lungs are well expanded. There is minor interstitial thickening in the lower lobes and groundglass opacity in association with thickening of the león of the bronchi. There is minor subsegmental atelectasis a t the right lung base There is a small calcified granuloma in the right upper lobe Normal pleura. Normal chest wall structures. Dorsal spine demonstrates moderate spondylosis Moderate size hiatal her jr is noted. Liver is fatty infiltrated. There are postsurgical changes status post cholecystectomy. 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 No evidence for pulmonary embolus aortic aneurysm periaortic leak or dissection. Electronically Signed: Eduard Montalvo MD at 18:27 EST T [phone], Service support , CC: Tyrel Gan MD; Lorena Arana DO Quill Cleaning Machine Operator: Signed 03-Jul-2017 Carotid Duplex Ultrasound Result: Comments: See Note; NOTES: [facility] [address] [place] [address] Carotid Duplex Ultrasound 06/29/17 1306 MR#: [id number] Acct: [id number] Name: DINAH MILLS Rep #: [id number] : 1945 71 From: Dane Jones MD Attending Dr: Lorena Arana DO Status: REG CLI Ordering Dr: Lorena Arana DO Date: 06/29/17 Location: Sex: F C Admitted : Reason For Study: bruits Rt. Velocities/BP Lt. Velocities/BP Prox CCA 111.0/19.3 cm/sec. Prox CCA 163.0/25.1 cm/sec. Mid CCA 108.0/19.9 cm/sec. Mid CCA 130.0/31.4 cm/sec. Dist CCA 98.5/24.6 cm/s ec. Dist CCA 130.0/31.4 cm/sec. Prox ICA 97.9/19.3 cm/sec. Prox ICA 127.0/25.1 cm/sec. Mid ICA 105.0/33.4 cm/sec. Mid ICA 124.0/31.4 cm/sec. Dist ICA 124.0/38.7 cm/sec. Dist ICA 97.3/33.4 cm/sec. Rt. IC A/CCA = 124.0/108.0=1.1. Lt. ICA/CCA = 127/130=0.98. Prox ECA 156.0/16.5 cm/sec. Prox ECA 86.8/11.1 cm/sec. Rt. Vert. 76.6/20.8 cm/sec. Lt. Vert. 69.2/19.3 cm/sec. Right Extracranial There is homogeneo us, smooth atherosclerotic plaque noted in the right common carotid artery. There is homogeneous, smooth atherosclerotic plaque noted in the right internal carotid artery. There is intimal thickening bu t no significant atherosclerotic plaque noted in the right external carotid artery. Antegrade flow is noted in the right vertebral artery. Left Extracranial There is homogeneous, smooth atherosclerotic plaque noted in the left common carotid artery. There is homogeneous, smooth atherosclerotic plaque noted in the left internal carotid artery. There is intimal thickening but no significant atheroscler otic plaque noted in the left external carotid artery. Antegrade flow is noted in the left vertebral artery. Procedure Carotid Duplex 12243. The exam was diagnostic. Exam performed in department. Inte rpretation Summary Mild (<50%) stenosis right extracranial internal carotid. Moderate (50-69%) stenosis left extracranial internal carotid. Flow within the vertebral arteries is antegrade bilate rally. Ordering Physician: Lorena Arana Performed By: Sheri Hayes, RDCS, RVT Electronical ly signed by: MD Dane Jones on 07/03/2017 09:28 PM 07/03/172127 Date Dane Jones MD CC: Lorena Arana DO Date Dictated: 06/29/17 1306 Date Transcribed: 07/03/172127 Quill Cleaning Machine Operator: Signed 29-Jun-2017 Dexa Bone Density Study (HP) Result: Comments: See Note; NOTES: [facility] Imaging Services [address] [address] Dexa Bone Density Study (HP) MR#: [id number] Acct: [id number] Name: DINAH HICKMAN Rep #: [id number] : 1945 F 71 From: Kale Sanders MD PCP: Lorena Arana DO Status: REG CLI Study: Dexa Bone Density Study (HP) Date of Exam: 06/29/17 Exam# [id number] Ordering Dr: Ute Arana DO STUDY: DUAL ENERGY X-RAY ABSORPTIOMETRY / DXA REASON FOR EXAM: Female, 71 years old. The patient is postmenopausal. Loss of height. TECHNIQUE: Bone Mineral Density (BMD) measurements of andrés mbar spine and bilateral hips were obtained. COMPARISON: Comparison is made with prior study dated May 20, 2015. FINDINGS: Lumbar Spine (L1-L4): g/cm2 (1.038) / T-score (-1.1) / Z-score (0.6) Findings are suggestive of osteopenia with a low fracture risk. Left Femur Total: g/cm2 (0.983) / T-score (-0.2) / Z-score (1.4) Left Femoral Neck: g/cm2 (0.889) / T-sc ore (-1.1) / Z-score (0.7) Right Femur Total: g/cm2 (1.031) / T-score (0.2) / Z-score (1.8) Right Femoral Neck: g/cm2 (0.939) / T-score (-0.7) / Z-score (1.1) The T-Scores on the most recent prior exam ination were: Lumbar Spine (L1-L4): There has been improvement of bone density since the previous examination. Left Femur Total: which represents a worsening of 3.8%. Right Femur Total: which represen ts a worsening of 2.9%. HPBD/Dexa Bone Density Study (HP) IMPRESSION: The patient is considered osteopenic as outlined below according to World H eath Organization (WHO) criteria with a low fracture risk. There has been worsening of bone density since the previous examination. Reference Information: The T-sco re is the number of standard deviations above or below the standard which is normal for young adults at their peak bone mineral density. The World Health Organization (WHO) interprets the T-scores as fo llows: Above -1 Normal bone density Between -1 and -2.5 Osteopenia Equal to / or below -2.5 Osteoporosis As a practical clinical guideline, osteopenia may be graded as follows: Mild -1 through -1.5 Mo derate -1.6 through -2.0 Severe -2.1 through -2.4 The Z-score is the number of standard deviations above or below age-matched controls. A Z-score of less than -1.5 would be considered abnormal. Refere nces: 1. NIH Osteoporosis and Related Bone Diseases http://www.osteo.org 2. International Society for Clinical Densitometry http://www.iscd.org 3. National Osteoporosis Foundation http://www.nof.org El ectronically Signed: Kale Sanders MD at 12:47 EST Tel [phone], Service support , CC: Lorena Arana DO Quill Cleaning Machine Operator: Signed 29-Jun-2017 SCREENING MAMM (CAD), BILAT Result: Comments: See Note; NOTES: [facility] Imaging Services [address] [address] SCREENING MAMM (CAD), BILAT MR#: [id number] Acct: [id number] Name: DINAH HICKMAN Rep #: [id number] : 1945 F 71 From: Reynaldo Shipley MD PCP: Lorena Arana DO Status: REG CLI Study: SCREENING MAMM (CAD), BILAT Date of Exam: 06/29/17 Exam# [id number] Ordering Dr: Lorena Arana DO MAMMOGRAPHY - BILATERAL SCREENING REASON FOR EXAM: Female, 71 years old. Routine annual screening examination. PERTINENT HISTORY: Non-contributory. TECHNIQUE: Digital examination. Mediolateral obl ique (MLO) and craniocaudad (CC) views of both breasts were obtained, along with 3-D tomosynthesis. CAD: CAD was performed on this study. COMPARISON: 05/19/2016 FIN DINGS: Breast Density: Scattered fibroglandular densities. There are no dominant masses or suspicious calcifications. No other significant abnormalities are identified. There has been no significant c hange since the prior study. 0024 HPBI/SCREENING MAMM (CAD), BILAT IMPRESSION: Stable bilateral screening mammogram. Yearly follow-up mammogram recomm ended. (A) ASSESSMENT CATEGORY: BIRADS Category 2: Benign. A letter regarding these results will be sent to the patient by the facility within 30 days. BR2 Approx imately 10% of breast cancers are not detected by mammography. A normal mammogram should not delay biopsy of a clinically suspicious abnormality. [id number] Electronically Signed: Raul Shipley MD 2016 at 14:22 EST , Service support , CC: Lorena Arana DO Quill Cleaning Machine Operator: Signed 17-Jan-2017 Abdomen/Pelvis WITH Contrast Result: Comments: See Note; NOTES: [facility] [address] [address] Verdana 4d Abdomen/Pelvis WITH Contrast MR#: [id number] Acct: [id number] Name: KELTON HICKMAN Rep #: [id number] : 1945 F 71 From: Kalyn Gonzalez MD PCP: Lorena Arana DO Status: REG CLI Study: Abdomen/Pelvis WITH Contrast Date of Exam: 01/17/17 Exam# [id number] Ordering Dr: Lorena Juares DO STUDY: CT ABDOMEN AND PELVIS WITH CONTRAST REASON FOR EXAM: Female, 71 years old. Right lower quadrant pain RADIATION DOSAGE (If Supplied By Facility): CTDIvol = ( 11.75 ) mGy, DLP = ( 665.83 ) mGycm TECHNIQUE: Transaxial images were obtained from the dome of the diaphragm to the symphysis pubis with oral contrast. 100 ml of Isovue 300 contrast was administered. Sagittal and cor onal images were reconstructed. Individualized dose optimization techniques were used for this CT. COMPARISON: CT abdomen and pelvis dated April 29, 2014 FINDI NGS: There is a stable 5 mm opacity in the periphery of the left lower lobe. There is stable minimal scarring in both lung bases. There is minimal atelectasis in the lung bases. There is no pleural effu amilcar. The visualized portions of the heart are within normal limits. Normal liver. There are surgical clips in the gallbladder fossa consistent with a prior cholecystectomy. Normal spleen. Normal pancr eas. Normal bilateral adrenal glands. Normal right kidney. Normal left kidney. There is a moderate-sized hiatal hernia. Normal small intestine. There are diverticula in the distal colon without adjac ent stranding. There is mild wall thickening in the hepatic flexure and transverse colon. The appendix is surgically absent. There are minimal vascular calcifications in the aorta and iliac arteries. N ormal inferior vena cava. Normal retroperitoneum. Normal urinary bladder. The uterus is surgically absent. There are no abnormal masses in the adnexal regions. Normal abdominal wall. There are minimal degenerative changes in the visualized spine. CT/Abdomen/Pelvis WITH Contrast IMPRESSION: There is mild wall thickening in the hepatic flexure and transverse colon which can be seen with a colitis, either infectious or inflammatory. There is no bowel obstruction. There is diverticulosis of the distal colon. There is marked stool in the cecum which limits visualization of small masses in the lumen. There is no ascites, inflammation or significant lymphadenopathy. Electronically Signed: Kalyn Gonzalez MD at 20:50 EDT Tel [phone], Service support , CC: Lorena Arana DO Quill Cleaning Machine Operator: Signed 14-Jan-2017 Pelvic (Non ) Result: Comments: See Note; NOTES: [facility] Imaging Services [address] [place] [address] Ver[place] 4d Pelvic (Non ) MR#: [id number] Acct: [id number] Name: DINAH HICKMAN Clarissa Rep #: [id number] : 1945 F 71 From: Eduard Montalvo MD PCP: Lorena Arana DO Status: REG CLI Study: Pelvic (Non ) Date of Exam: 01/14/17 Exam# [id number] Ordering Dr: Lorena Arana DO STUDY: ULTRASOUND OF THE FEMALE PELVIS - COMPLETE REASON FOR EXAM: Female, 71 years old. Right pelvic pain LMP: TECHNIQUE: Transabdominal TECHNICAL QUALITY: Adequate. COMPARISON: None. FINDINGS: Ovaries and uterus not visualized status post LJ/BSO.. No abnormal pelvic mass demonstrated. There is no fluid in the cul-de-sac. The pre void volume of the blad michael was 98.18 ml. Dental finding of apparent left ureterocele US/Pelvic (Non ) IMPRESSION: Unremarkable pelvic sonogram status post LJ/B SO Electronically Signed: Eduard Montalvo MD at 0:17 EDT , Service support , CC: Lorena Arana DO Quill Cleaning Machine Operator: Signed 19-May-2016 Bilat Scrn Digital AND CAD Result: Comments: See Note; NOTES: [facility] Imaging Services [address] [place] [address] Ver[place] 4d Bilat Scrn Digital AND CAD MR#: [id number] Acct: [id number] Name: PARVEEN HICKMAN Rep #: [id number] : 1945 F 70 From: Kale Sanders MD PCP: Lorena Arana DO Status: REG CLI Study: Bilat Scrn Digital AND CAD Date of Exam: 05/19/16 Exam# [id number] Ordering Dr: Lorena Juares DO MAMMOGRAPHY - BILATERAL SCREENING REASON FOR EXAM: Female, 70 years old. Routine annual screening examination. PERTINENT HISTORY: Non- contributory. TECHNIQUE: Digital bilateral b reast gina (3D mammographic acquisition) in the CC and MLO projections. 2-D mediolateral oblique (MLO) and craniocaudad (CC) views of both breasts were obtained. CAD: Full Field Digital Mammography with Computer Added Detection was performed. COMPARISON: Comparison is made with prior study dated May 09, 2015 and March 04, 2014. FINDINGS: Breast Composition: The re are scattered areas of fibroglandular density. There are no dominant masses or suspicious calcifications. Once again, there is asymmetry of breast tissue where more breast tissue is seen in the uppe r-outer quadrant of the left breast as compared to the right side. No other significant abnormalities are identified. There has been no significant change since the prior study. HPBI/Bilat Scrn Digital AND CAD IMPRESSION: Stable bilateral screening mammogram. Yearly follow-up mammogram recommended. (A) ASS ESSMENT CATEGORY: BIRADS Category 2: Benign. A letter regarding these results will be sent to the patient by the facility within 30 days. Approximately 10% of breast cancers are not detected by mammogr aphy. A normal mammogram should not delay biopsy of a clinically suspicious abnormality. [id number] Electronically Signed: Kale Sanders MD at 8:13 EDT Tel [phone], Service support [phone], CC: Lorena Arana DO Quill Cleaning Machine Operator: Signed 12-Mar-2016 Emergency Department Summary Result: Comments: See Note; NOTES: [facility] Medical Records Department [address] [place] [address] Emergency Department Summary MR#: [id number] Acct: [id number] Name: HICKMANKELTON Rep #: [id number] : 1945 70 From: Quincy Nye MD PCP: Lorena Arana DO Status: [facility] DATE OF SERVICE: 03/11/2016 CHIEF COMPLAINT: Multiple complaints. HISTORY OF PRESENT ILLN ESS: This is a 70-year-old female, who it is difficult to ascertain what exactly brought her to the Emergency Department today. She brings on multiple recent illnesses over the last couple of months and multiple complaints; however, most of these have been addressed, treated, or have actually resolved. She began by telling me about an aspiration pneumonia that she had 2 months ago. She was treated wit h antibiotics and steroids, initially improved, but states she has never felt that her breathing is quite erratic since that time. She was actually seen for this 4 days ago in the Emergency Department a nd had blood work and a chest x-ray, which were normal. She also notes that she had an abscess on her abdominal wall a couple of weeks ago near an old laparoscopy incision, which sounds like opened up o n its own and drained a small amount of purulent material. There was some surrounding redness, this is resolved. She had some nausea this morning and about 2-3 episodes of loose stools. She has also had some congestion. Her main complaint is actually that she has had hot flashes for at least 6-7 weeks, but she has had no fevers. She denies chest pain, shortness of breath, cough, vomiting, or rashes. PHYSICAL EXAMINATION: VITAL SIGNS: Afebrile, vitals are stable. HEART: Regular rate and rhythm. LUNGS: Clear. ABDOMEN: Soft. EMERGENCY DEPARTMENT COURSE: The patient was seen in the Emergency Departmen t just 4 days ago and had a normal chest x-ray and normal blood work. She has actually been having the sweats for the last 7 weeks. Given that there are no new complaints, I did not feel repeat blood wo rk will be of benefit as she has had no fevers and no focal complaints. No new complaints over approximately 2 months. She also notes that she has seen her primary care physician for this. I discussed t hat we could also check urinalysis, but she states that this was just checked last week. We discussed the possibility of thyroid disorders. She states she has had her thyroid checked multiple times and has even seen an management rep and told that her thyroid was normal. At this point, I explained that it is felt like her breathing has not been right, but this has been going on for months, she has yeboah d repeat x-rays, she is not hypoxic or tachycardic, I did not think a repeat x- ray would be of benefit given that she just had this a few days ago. I do not think repeat blood work is of benefit as she has had this within the last couple of days as well. At this point, I see no signs of serious or life-threatening pathology. I saw no skin infections. No source of her sweats over the past approximately 2 months. She was advised to follow up with her primary care physician. She was advised of specific signs and symptoms under which to return to the Emergency Department and she was discharged. IMPRESS ION: Hot flashes. DISPOSITION: Discharge. Dr. Quincy Nye MD T: PHAN JOB: [id number] 03/12/16 0800 <Electronically signed by Quincy Nye MD> Date Quincy Nye MD Cosigner Signature (If Indicated): Date CC: Lorena Arana DO Date Dictated: 03/11/161226 Date Transcribed: 03/11/161226 Quill Cleaning Machine Operator: Signed 11-Mar-2016 Discharge Instruction Result: Comments: See Note; NOTES: [facility] Medical Records Department [address] [place], [place] [address]E[place] [address] Discharge Instruction 03/11/161227 MR#: [id number] Acct: [id number] Name: DINAH MADISON Rep #: [id number] : 1945 70 From: Quincy Nye MD PCP: Lorena Arana DO Status: REG ER ED Disposition - Plan for ED Patient: Chief Complaint: Nausea/Vomiting Instructions: ED Diarrhea, Viral (Child) (Adult) What to do if you have Problems For any increased pain, shortness of breath, bleeding, nausea or vomiting, chest pain, or any unexpected problems, contact your do ctor. Call [facility] ([phone]) or report to the closest Emergency Room. Call 911 if necessary. 03/11/16 1228 <Electronically signed by Quincy Nye MD> Date _ Quincy Nye MD Cosigner Signature (If Indicated): Date CC: Lorena Arana DO 09-Mar-2016 12 Lead Electrocardiogram Result: Comments: See Note; NOTES: [facility] Cardiovascular Services [address] [address] [address] 12 Lead EKG 03/08/162301 MR#: [id number] Acct: [id number] Name: DINAH HICKMAN Rep #: [id number] : 1945 70 From: Augusto Quan MD Attending Dr: Status: DEP ER Ordering Dr: Eduard Mittal MD Date: 03/08/16 Location: ED Sex: F C Admitted: Test Reason : COUGH Blood Pr essure : / mmHG Vent. Rate : 074 BPM Atrial Rate : 074 BPM P-R Int : 132 ms QRS Dur : 072 ms QT Int : 408 ms P-R-T Axes : 042 015 064 degrees QTc Int : 452 ms Normal sinus rhythm Normal ECG Confi rmed by FRANCIA PIEDRA, AUGUSTO ([id number]), state editor AMEYA CORONEL ([id number]) on 03/09/2016 1:25:48 PM Referred By: JW Confirmed By:AUGUSTO QUAN MD 03/09/16 1325 Date Augusto Quan MD CC: Lorena Arana DO Date Dictated: 03/08/162301 Date Transcribed: 03/08/162301 Quill Cleaning Machine Operator: Signed 09-Mar-2016 Discharge Instruction Result: Comments: See Note; NOTES: [facility] Medical Records Department [address] [address] Discharge Instruction 03/09/16 0005 MR#: [id number] Acct: [id number] Name: DINAH MADISON Rep #: [id number] : 1945 70 From: Eduard Mittal MD PCP: Lorena Arana DO Status: DEP ER ED Disposition - Plan for ED Patient: Disposition: Home or Assisted Living Chief Com plaint: Cough Instructions: ED URI, No Abx (Adult) Referrals: Lorena Arana DO [Primary Care Provider] - As Needed Additional Instructions: START YOUR PREDNISONE TOMORROW COUGH MOST LIKELY FROM SEAS ONAL ALLERGIES AND OR VIRUS. NO ANTIBIOTICS NEEDED What to do if you have Problems For any increased pain, shortness of breath, bleeding, nausea or vomiting, chest pain, or any unexpected problems, contact your doctor. Call [facility] ([phone]) or report to the closest Emergency Room. Call 911 if necessary. 03/09/16 0114 <Electronically signed by Eduard Mittal MD> Nilton e Eduard Mittal MD Cosigner Signature (If Indicated): Date CC: Lorena Arana DO 09-Mar-2016 Emergency Department Summary Result: Comments: See Note; NOTES: [facility] Medical Records Department [address] [place] [address] Emergency Department Summary MR#: [id number] Acct: [id number] Name: KELTON HICKMAN Rep #: [id number] : 1945 70 From: Eduard Mittal MD PCP: Lorena Arana DO Status: [facility] DATE OF SERVICE: 03/08/2016 CHIEF COMPLAINT: Cough. HISTORY OF PRESENT ILLNESS: This is a 70-year-old female with cough. Has had aspiration pneumonia earlier this year in December. Denies any fever. No shortness of breath. PHYSICAL EXAMINATION: GENERAL: She is a 70-year-old female. VITAL SIGNS : Stable, afebrile. Does not look septic or toxic, no acute distress. Pulse ox 96% on room air. No signs of hypoxia. HEENT: Unremarkable. NECK: Nontender. No JVD. No lymphadenopathy. LUNGS: Dry cough. N o rales, rhonchi or wheezing. Equal, symmetrical. HEART: Regular rate and rhythm. No murmur. ABDOMEN: Soft, nontender. EXTREMITIES: Moves all 4. Calves nontender. No edema. No cords. NEUROLOGIC: Awake a nd alert with no focal motor deficits. EMERGENCY DEPARTMENT COURSE: Elderly female with cough. TEST RESULTS: Chest x-ray shows no acute abnormality, read by myself and Dr. River of radiology. Normal car diac silhouette, normal lungs. EKG sinus rhythm, rate of 74, no abnormalities. White count of 7, H and H 13 and 38, no bands. Electrolytes unremarkable. The patient was treated with a DuoNeb aerosol and oral prednisone. Said she feels much better on repeat exam at 0004 hours. She is resting comfortably. Her sats are in the high 90s. IMPRESSION: 1. Cough secondary to viral upper respiratory infection. 2. Seasonal allergies. PLAN: Her primary care physician, Dr. Arana has already called her in prednisone taper. She is going to start that tomorrow. She was given a dose here prior to discharge. She d oes not need antibiotic therapy. MD Bennett Barajas C: Lorena Arana DO T: NTS JOB: [id number] 03/09/16 0114 <Electronically signed by Eduard Mittal MD> Date Eduard Mittal MD Cosigner Signature (If Indicated): Date CC: Lorena Arana DO Date Dictated: 03/09/1614 Date Transcribed: 03/09/1614 Quill Cleaning Machine Operator: Signed 08-Mar-2016 Chest PA and Lateral Result: Comments: See Note; NOTES: [facility] Imaging Services [address] [place] [address] Verdana 4d Chest PA and Lateral MR#: [id number] Acct: [id number] Name: DINAH HICKMAN Clarissa Rep #: [id number] : 1945 F 70 From: Krishan River PCP: Lorena Arana DO Status: PRE ER Study: Chest PA and Lateral Date of Exam: 03/08/16 Exam# [id number] Ordering Dr: Eduard Mittal MD STUDY : X-RAY CHEST REASON FOR EXAM: Female, 70 years old. Shortness of breath, cough TECHNIQUE: Frontal and lateral views of the chest. COMPARISON: 01/27/16. FINDINGS: The lungs are clear and expanded. There is no demonstrated pleural abnormality. Normal size heart. Normal mediastinum and marie. Normal visualized pulmonary arteries. Normal visualized aortic arch and descending thoracic aorta. Normal visualized thoracic spine. Normal visualized ribs, clavicles, and shoulders. There is no demonstrated abnormality of the visualized soft tissue structures of the uppe r abdomen. RAD/Chest PA and Lateral IMPRESSION: No acute cardiopulmonary disease. Electronically Signed: Krishan River DO at 23:39 EDT , Service support [phone], CC: Eduard Mittal MD; Lorena Arana DO Quill Cleaning Machine Operator: Signed 05-Mar-2016 ELECTROCARDIOGRAM, COMPLETE (ECG) ([id number]) Result: [MEASUREMENTS ANALYSIS] Date of Test: 03/05/2016 10:21:01; Heart Rate: 83; NC Interval: 148; QRS: 92; QT Interval: 374; Corrected QT Interval (QTc): 414; P Wave Cantil: 25; QRS Wave Cantil: 7; T Wave Cantil: 44; Blood Pressure: 142/86 [ECG DIAGNOSTIC STATEMENTS] Date of Test: 03/05/2016 10:21:01; Summary: Sinus Rhythm WITHIN NORMAL LIMITS 27-Jan-2016 Chest PA and Lateral Result: Comments: See Note; NOTES: [facility] Imaging Services [address] [place] [address] Verdana 4d Chest PA and Lateral MR#: [id number] Acct: [id number] Name: DINAH MADISON Clarissa Rep #: [id number] : 1945 F 70 From: Christian Gamble MD PCP: Lorena Arana DO Status: REG CLI Study: Chest PA and Lateral Date of Exam: 01/27/16 Exam# [id number] Ordering Dr: Mirian Jarvis sa STUDY: X-RAY CHEST REASON FOR EXAM: Female, 70 years old. aspiration pneumonia right side lung pain since tuesday, coughing TECHNIQUE: Frontal and lateral views of the chest. COMPARIS ON: CR - Chest - 18:12 FINDINGS: There is hyperinflation of the lungs consistent with chronic obstructive lung disease (COPD). There is no demonstrat ed pleural abnormality. Normal size heart. Normal mediastinum and marie. Normal visualized pulmonary arteries. Normal visualized aortic arch and descending thoracic aorta. There is a mild dextrosco liosis of the thoracic spine. There is degenerative osteoarthritis of the bilateral shoulders. There is no demonstrated abnormality of the visualized soft tissue structures of the upper abdomen. __ IMPRESSION: There is hyperinflation of the lungs consistent with chronic obstructive lung disease (COPD). Electronically Signed: Christian Gamble MD at 12:26 EDT Tel , Service support [phone], RAD/Chest PA and Lateral IMPRESSION: There is hyperinflation of the lungs consistent with chronic obstructive lung disease (COPD). Electronically Signed: Christian Gamble MD at 12:26 EDT Tel , Service support [phone], CC: Mirian Arana DO Quill Cleaning Machine Operator: Signed 05-Nov-2015 NCS and/or EMG Patient Result: Comments: See Note; NOTES: [facility] Pulmonary Services/Neurology [address] [address] NCS and/or EMG Patient MR#: [id number] Acct: [id number] Name: DINAH AN Rep #: [id number] : 1945 70 From: Julio C Kiser MD Referring Dr: Lorena Arana DO Status: REG CLI Ordering Dr: Lorena Arana DO Date: 10/29/15 Location: PSN Sex: F C DA TE OF SERVICE: 10/29/2015 The patient presents for electrodiagnostic testing of the right upper limb. She has chief complaint of numbness and tingling in the right hand. ELECTRODIAGNOSTIC FINDINGS: On nerve conduction study, right median motor nerve demonstrates prolonged distal latency with normal amplitude and conduction velocity. Normal right ulnar motor response. Normal right ulnar F-wave. Mildly prolonged right median F-wave. Prolonged right median sensory distal latency. Prolonged right median palmar response. On needle EMG, all muscles tested in the right upper limb showed no eviden ce of denervation with normal motor unit action potentials. ELECTRODIAGNOSTIC IMPRESSION: This is an abnormal study. Findings demonstrate right-sided median mononeuropathy. This is consistent with a moderate to advanced right carpal tunnel syndrome. If there are any questions in regards to this exam, please do not hesitate to contact me. Julio C Kiser MD T: NTS JOB: [id number] 11/05/15 1 053 <Electronically signed by Julio C Kiser MD> Date Julio C Kiser MD CC: Julio C Kiser; Lorena Arana DO Date Dictated: 10/29/15 1449 Date Transcribed: 10/29/15 1449 Quill Cleaning Machine Operator: Signed 25-Sep-2015 S-I Jts 3 or More Views Result: Comments: See Note; NOTES: [facility] Imaging Services [address] [place] [address] Verdana 4d S-I Jts 3 or More Views MR#: [id number] Acct: [id number] Name: DINAH ELIZONDO Rep #: [id number] : 1945 F 69 From: Kale Sanders MD PCP: Lorena Arana DO Status: REG CLI Study: S-I Jts 3 or More Views Date of Exam: 09/25/15 Exam# [id number] Order ing Dr: Lorena Arana DO STUDY: X-RAY - SACROILIAC JOINTS REASON FOR EXAM: Female, 69 years old. Pain. TECHNIQUE: 3 view(s) of the sacroiliac joints were obtained. COMPARISON: None. FINDINGS: There are degenerative changes of the bilateral sacroiliac joints. Normal visualized sacral ala and sacrum. Normal visualized iliac bones. Normal visualiz ed soft tissue structures. IMPRESSION: Degenerative changes of the bilateral sacroiliac joints, as described above. Electronically Signed: Kale Sanders MD at 15:32 EST Tel [phone], Service support [phone], RAD/S-I Jts 3 or More Views IMPRESSION: Degenerative changes of the bilateral sacroi liac joints, as described above. Electronically Signed: Kale Sanders MD at 15:32 EST Tel [phone], Service support [phone], CC: Lorena Arana DO Quill Cleaning Machine Operator: Signed 25-Sep-2015 Hand 2 Views Result: Comments: See Note; NOTES: [facility] Imaging Services [address] [place] [address] Ver[place] 4d Hand 2 Views MR#: [id number] Acct: [id number] Name: LEANA HICKMAN RA Clarissa Rep #: [id number] : 1945 F 69 From: Kale Sanders MD PCP: Lorena Arana DO Status: REG CLI Study: Hand 2 Views Date of Exam: 09/25/15 Exam# [id number] Ordering Dr: Raúl Arana DO STUDY: X-RAY - RIGHT HAND REASON FOR EXAM: Female, 69 years old. History of arthritis. TECHNIQUE: 3 view(s) of the hand. COMPARISON: None. FINDINGS : Normal visualized carpal bones and carpal articulations. There is degenerative arthrosis of the carpometacarpal (CMC) articulation of the thumb. Normal second through fifth carpometacarpal joints. Normal metacarpi. Normal metacarpophalangeal (MCP) joints. Joint space narrowing involving the proximal and distal interphalangeal joints suggestive of osteoarthritis. The soft tissue structures are unremarkable. IMPRESSION: Degenerative osteoarthritis, as described above. Electronically Signed: Kale Sanders MD at 16:11 EST Tel [phone], Service support [phone], RAD/Hand 2 Views IMPRESSION: Degenerative osteoarthritis, as described above. Electronically Signed: Kale Sanders MD at 16:11 EST Tel [phone], Service support [phone], CC: Lorena Arana DO Quill Cleaning Machine Operator: Signed 25-Sep-2015 L/S Spine Min 4 Views Result: Comments: See Note; NOTES: [facility] Imaging Services [address] [place] [address] Verdana 4d L/S Spine Min 4 Views MR#: [id number] Acct: [id number] Name: DINAH AN Rep #: [id number] : 1945 F 69 From: Rodri Balderas MD PCP: Lorena Arana DO Status: REG CLI Study: L/S Spine Min 4 Views Date of Exam: 09/25/15 Exam# [id number] Ordering Dr : Lorena Arana DO STUDY: X-RAY - LUMBAR SPINE REASON FOR EXAM: Female, 69 years old. Arthritis. TECHNIQUE: 5 view(s) of the lumbar spine were obtained. COMPARISON: MRI 11/24/11. FINDINGS: Normal lumbar lordosis. There is mild levoscoliosis. There is 4 mm anterolisthesis at the L4-5 level, which appears to be on the basis of degenerative facet join t disease. There are also degenerative changes of the facet joints at the L5- S1 and L3-4 levels. Normal vertebral bodies and endplates. There is mild multi-level degenerative disc disease with multi -level disc space narrowing. There is atherosclerotic calcification of the abdominal aorta without a demonstrated aneurysm. IMPRESSION: Degenerative changes of the spine, as detailed above. Electronically Signed: Rodri Balderas MD at 7:52 EST , Service support [phone], RAD/L/ S Spine Min 4 Views IMPRESSION: Degenerative changes of the spine, as detailed above. Electronically Signed: Rodri Balderas MD at 7:52 EST , Service support [phone], CC: Lorena Arana DO Quill Cleaning Machine Operator: Signed 25-Sep-2015 Wrist min 3 Views Result: Comments: See Note; NOTES: [facility] Imaging Services [address] [place] [address] [place] 4d Wrist min 3 Views MR#: [id number] Acct: [id number] Name: DINAH HICKMAN Rep #: [id number] : 1945 F 69 From: Kale Sanders MD PCP: Lorena Arana DO Status: REG CLI Study: Wrist min 3 Views Date of Exam: 09/25/15 Exam# [id number] Ordering Dr: Lorena Zapata DO STUDY: X-RAY - RIGHT WRIST REASON FOR EXAM: Female, 69 years old. The patient has a history of arthritis. TECHNIQUE: 3 view(s) of the wrist were obtained. COMPARISON: Comparis on is made with prior radiograph dated February 05, 2014. FINDINGS: Normal visualized distal radius and ulna. Normal radiocarpal articulation. Normal distal radioulna r articulation. Normal carpal bones. Joint space narrowing involving the joint space between the navicular bone and trapezium. There is degenerative arthrosis of the carpometacarpal articulation of the thumb. Normal second through fifth carpometacarpal articulations. Normal visualized metacarpal bones. The soft tissue structures are unremarkable. IMPRESS ION: Degenerative changes. Electronically Signed: Kale Sanders MD at 12:54 EST Tel [phone], Service support [phone], RAD/Wrist min 3 Views IMPRESSION: Degenerative changes. Electronically Signed: Kale Sanders MD at 12:54 EST Tel [phone], Service support [phone], CC: Raúl Arana DO Quill Cleaning Machine Operator: Signed 26-May-2015 Echocardiogram Complete Result: Comments: See Note; NOTES: [facility] Cardiovascular Services [address] [place] [address] Echo Complete 05/26/15 0954 MR#: [id number] Acct: [id number] Name: DINAH GIL Rep #: [id number] : 1945 69 From: Urbano Tam MD Attending Dr: Lorena Arana DO Status: REG CLI Ordering Dr: Lorena Arana DO Date: 05/26/15 Location: CVS Sex: F C Adm itted: Procedure This was a 2D Doppler, Color Flow transthoracic echocardiogram. Exam performed portable in patient room. Left Ventricle Normal LV size. Left ventricular systolic function is normal. The estimated ejection fraction is 60 %. No regional wall motion abnormalities noted. Right Ventricle Normal RV size. Normal systolic function. Atria Normal left atrium. Normal right atr ium. Mitral Valve There is mild mitral annular calcification. Trivial mitral valve insufficiency. Tricuspid Valve Normal tricuspid valve. Mild (1+) tricuspid valve insufficiency. Pulmonary artery systolic pressure is 30 mmHg. Aortic Valve Normal aortic valve. Trisinus/trileaflet aortic valve. Trivial aortic valve insufficiency. Pulmonic Valve Normal pulmonic valve. Great Vessels Meghan l aortic root. The pulmonary artery is normal size. Normal inferior vena cava. Pericardium/Pleural No pericardial effusion. MMode/2D Measurements AND Calculations LVIDd: 3.2 cm IVSd: 1.0 cm Ao miguel t diam: 3.2 cm LAV(MOD-bp): 33.3 ml LVIDs: 2.1 cm LVPWd: 0.90 cm Ao root area: 8.0 cm2 LAV(MOD-bp) Indexed: 19.8 ml /m2 RVDd: 2.2 cm FS: 32.6 % LA dimension: 4.0 cm LAV(MOD-sp2): 31.8 ml LAV(MOD-sp4 ): 32.3 ml LA A4 area: 13.2 cm2 RA A4 area: 12.0 cm2 Doppler Measurements AND Calculations MV E max bianka: 70.8 cm/ sec Lat Peak E' Bianka: Med Peak E' Bianka: Ao V2 max: MV A max bianka: 7.6 cm/sec 3.6 cm/sec 141.3 cm/sec 107.1 cm/sec Ao max P.0 mmHg MV E/A: 0.66 AI max bianka: 303.7 cm/sec LV V1 max: 125.5 cm/sec PA V2 max: 137.9 cm/sec TR max bianka: AI max P.9 mmHg LV V1 max P.3 mmHg PA max P.6 mmHg 251.3 cm/sec AI dec slope: TR max P.3 mmHg 156.7 cm/sec2 AI P1/2t: 567.5 msec E/E' lat: 9.3 E/E' med: 19.8 Interpretation Hong mmary Normal LV size. Left ventricular systolic function is normal. The estimated ejection fraction is 60 %. No regional wall motion abnormalities noted. There is mild mitral annular calcification. Trivial mitral valve insufficiency. Mild (1+) tricuspid valve insufficiency. Ordering Physic shimon: Lorena Arana Performed By: Sonja Tavarez RDCS 05/26/151109 Date Gladis Tam MD CC: Lorena Arana DO Date Dictated: 05/26/15 0954 Date Transcribed: 05/26/151109 Quill Cleaning Machine Operator: Signed 26-May-2015 Nuclear Stress Test - Chemical Result: Comments: See Note; NOTES: [facility] Services [address] [address] Verdana 4d Nuclear Stress Test - Chemical MR#: [id number] Acct: [id number] N jamir: DINAH HICKMAN Rep #: [id number] : 1945 69 From: Urbano Tam MD Primary Care: Lorena Arana DO Status: REG CLI Ordering Dr: Lorena Arana DO Sex: F C DATE OF SERVICE: 05/02 PHARMACOLOGIC MYOCARDIAL PERFUSION STRESS TEST: Resting EKG demonstrates normal sinus rhythm with a rate of 75 beats per minute. Normal intervals are noted. Resting blood pressure was 124/82 . 0.4 mg of regadenoson was infused per usual protocol followed by rapid intravenous saline flush injection. Continuous EKG monitoring was performed. The resting heart rate was 75 beats per minute, rising to a peak of 131 beats per minute, which was 87% of maximum predicted heart rate. Resting blood pressure was 124/82 with a peak blood pressure of 138/78. No clinical angina was noted. There wer e no ST or T-wave changes noted to suggest abnormal flow reserve. MYOCARDIAL PERFUSION PROTOCOL: 11.2 mCi of sestamibi was injected at rest. 0.4 mg of regadenoson was infused per usual protocol. At peak infusion, 33.3 mCi of sestamibi was injected. Stress images were obtained. Stress and rest images were reconstructed and compared in the short axis, vertical long and horizontal long axes. Gated images were also obtained. PERFUSION SPECT ANALYSIS: Review of the images demonstrated normal uptake of tracer noted in all areas of the myocardium. The resting images similarly demonstrated normal uptake of tracer noted in all areas of the myocardium. No areas of reversibility are noted to suggest ischemia. No previous infarct is noted. GATED SPECT ANALYSIS: The gated ejection fraction is n oted to be 69%. CONCLUSION: 1. Normal pharmacologic myocardial perfusion stress test. 2. Preserved ejection fraction. Urbano Tam MD T: NTS JOB: [id number] 06/02/15 1031 <Electronic ally signed by Urbano Tam MD> Date Urbano Tam MD CC: Lorena Arana DO Date Dictated: 10/26/15 1106 Date Transcribed: 05/26/151105 Quill Cleaning Machine Operator: Signed 20-May-2015 Dexa Bone Density Study (HP) Result: Comments: See Note; NOTES: [facility] [address] [address] [place] 4d Dexa Bone Density Study (HP) MR#: [id number] Acct: [id number] Name : DINAH HICKMAN Rep #: [id number] : 1945 F 69 From: Kale Sanders MD PCP: Lorena Arana DO Status: REG CLI Study: Dexa Bone Density Study (HP) Date of Exam: 05/20/15 Exam# [id number]: Lorena Arana DO STUDY: DUAL ENERGY X-RAY ABSORPTIOMETRY / DXA REASON FOR EXAM: Female, 69 years old. Early menopause. Loss of height. TECHNIQUE: Bone Mineral Density (BMD) measurements of lumbar spine and bilateral hips were obtained. COMPARISON: Comparison is made with prior study dated July 23, 2010. FINDINGS: Lumbar Spine (L1-L4): g/cm2 (1.014) / T-score (-1.3) / Z-score (0.4) Findings are suggestive of osteopenia with a low fracture risk. Left Femur Total: g/cm2 (1.022) / T- score (0.1) / Z-score (1.6) Left Femoral Neck: g/cm2 (0.901) / T-score (-1.0) / Z-score (0.7) Right Femur Total: g/cm2 (1.062) / T-score (0.4) / Z-score (1.9) Right Femoral Neck: g/cm2 (0.910) / T- score (-0.9) / Z-score (0.8) The T-Scores on the most recent prior examination were: Lumbar Spine (L1-L4): There has been worsening of bone density since the previous examination. Left Femur Total: which represents a worsening of 6.2%. Ri ght Femur Total: which represents a worsening of 2.3%. IMPRESSION: The patient is considered osteopenic at the level of the lumbar spine as outlined below accord ing to World Manish Organization (WHO) criteria with a low fracture risk. There has been worsening of bone density since the previous examination. Reference Info rmation: The T-score is the number of standard deviations above or below the standard which is normal for young adults at their peak bone mineral density. The World Health Organization (WHO) interpre ts the T-scores as follows: Above -1 Normal bone density Between -1 and -2.5 Osteopenia Equal to / or below -2.5 Osteoporosis As a practical clinical guideline, osteopenia may be graded as follow s: Mild -1 through -1.5 Moderate -1.6 through -2.0 Severe -2.1 through -2.4 The Z-score is the number of standard deviations above or below age-matched controls. A Z-score of less than -1.5 would be considered abnormal. References: 1. NIH Osteoporosis and Related Bone Diseases http://www.osteo.org 2. International Society for Clinical Densitometry http://www.iscd.org 3. National Osteoporosi s Foundation http://www.nof.org Electronically Signed: Kale Sanders MD at 15:26 EDT Tel [phone], Service support [phone], CC: Lorena Arana DO Quill Cleaning Machine Operator: Signed 09-May-2015 Bilat Scrn Digital AND CAD Result: Comments: See Note; NOTES: [facility] [address] [place] [address] Breast Imaging Report MR#: [id number] Acct: [id number] Name: DINAH HICKMAN Rep #: [id number] : 1945 F 69 From: Kale Sanders MD PCP: Lorena Arana DO Status: REG CLI Study: Bilat Scrn Digital AND CAD Date of Exam: 05/09/15 Exam# [id number] Ordering Dr: Lorena Arana DO MAMMOGRAPHY - BILATERAL SCREENING REASON FOR EXAM: Female, 69 years old. Routine annual screening examination. PERTINENT HISTORY: Non- contributory. TECHNIQUE: Digital examination. Mediolateral oblique (MLO) and craniocaudad (CC) views of both breasts were obtained. CAD: CAD was performed on this study. COMPARISON: Comparison is made with prior study dated March 04, 2014 and February 15, 2013. FINDINGS: Breast Composition: There are scattered areas of fibroglandular density. There are no dominant masses or suspicious calcifications. On ce again, there is asymmetry of breast tissue or more breast tissue seen in the upper-outer quadrant of the left breast as compared to the right side. No other significant abnormalities are identifi ed. There has been no significant change since the prior study. IMPRESSION: Stable bilateral screening mammogram. Yearly follow-up recommended. (A) ASSESSMENT CATEGORY: BIRADS Category 2: Benign. A letter regarding these results will be sent to the patient by the facility within 30 days. Approximately 10% of breast ca ncers are not detected by mammography. A normal mammogram should not delay biopsy of a clinically suspicious abnormality. Electronically Signed: Kale Sanders MD at 14:56 EDT Tel [phone], Service support [phone], CC: Lorena Arana DO Quill Cleaning Machine Operator: Signed 20-Dec-2014 Operative Report Result: Comments: See Note; NOTES: [facility] Medical Records Department [address] [place] [address] Operative Report MR#: [id number] Acct: [id number] Name: DINAH HICKMAN Rep #: [id number] : 1945 69 From: Edu Mayen MD PCP: Lorena Arana DO Status: [facility] DATE OF SERVICE: 11/22/2014 DATE OF SURGERY: November 22, 2014 PREOPERATIVE DIAGNOSIS: Ri ght lower quadrant mass. POSTOPERATIVE DIAGNOSES: Right cystic pelvic sidewall mass, possible tubal remnant. SURGERY PERFORMED: Laparoscopic removal of right pelvic mass, robotic assisted. SURGE ON: Dr. Mayen. ANESTHESIA: General. DESCRIPTION OF FINDINGS: The patient had about a 4 cm cystic lesion on the right pelvic sidewall. This was moving in its entirety. It appeared to be most co nsistent with possibly an old hydrosalpinx. DESCRIPTION OF OPERATION: The patient identified, brought to the operating room and after administration of general anesthesia, was placed in the supine p osition on the operating room table, on the beanbag. A Leon catheter was inserted. Exam under anesthesia was normal appearing. She underwent an abdominal prep and was draped into supine position, ti meout was performed. Using a knife the small incision was made above the umbilicus and using the direct technique, a nonbladed trocar was inserted atraumatically in the abdominal cavity. The da Vidal ports were placed in right and left lower quadrant followed by the assistance port in the right upper quadrant, all under direct vision and using blunt ports only. The da Vidal was then docked. Some omental adhesions ____ intraabdominal wall was sharply lysed. The right pelvic sidewall was opened, the ureter identified. The cystic mass was dissected off of the right pelvic sidewall and the urete r was dissected laterally. The mass was removed in its entirety. It was easily removed out through the assistance port. Hemostasis was noted. No other pathologies noted in the pelvis. All instruments removed from the abdominal cavity. The da Vidal was undocked, the trocars were removed. The 2 larger incisions at the fascia closed with interrupted sutures of 0 Vicryl followed by subcuticular 4-0 M onocryl and Dermabond along the skin incisions. EBL is only about 25 mL at best. Leon catheter was removed and she was taken to the recovery room in stable condition. Edu Guajardo: Chante Costello MD T: PHAN JOB: [id number] 12/20/14 0727 <Electronically signed by Edu Mayen MD> Date Edu Mayen MD CC: Yelena banerjee MD; Lorena Arana DO; Edu Mayen Date Dictated: 11/22/14824 Date Transcribed: 11/22/14824 Quill Cleaning Machine Operator: Signed 10-Nov-2014 12 Lead Electrocardiogram Result: Comments: See Note; NOTES: [facility] Services [address] [place] [address] 12 Lead EKG 11/05/141836 MR#: [id number] Acct: [id number] Name: KELTON HICKMAN Rep #: [id number] : 1945 69 From: Tyrel Morales MD Attending Dr: Status: DEP ER Ordering Dr: Kalyn Vega MD Date: 11/05/14 Location: ED Sex: F C Admitted: Test Reason : Bl ood Pressure : / mmHG Vent. Rate : 072 BPM Atrial Rate : 072 BPM P-R Int : 152 ms QRS Dur : 070 ms QT Int : 422 ms P-R-T Axes : 030 006 072 degrees QTc Int : 462 ms Normal sinus rhythm N ormal ECG Confirmed by TYREL MORALES ([id number]), state editor AMEYA CORONEL ([id number]) on 11/07/2014 10: 21:25 AM Referred By: NICO Confirmed By:TYREL MORALES 11/07/14 1021 Date Tyrel Morales MD CC: Lorena Arana DO Date Dictated: 11/05/141836 Date Transcribed: 11/05/141836 Quill Cleaning Machine Operator: Signed 06-Nov-2014 Emergency Department Summary Result: Comments: See Note; NOTES: [facility] Medical Records Department [address] [facility] [place] [address] Emergency Department Summary MR#: [id number] Acct: [id number] Name: DINAH MADISON Rep #: [id number] : 1945 69 From: Kalyn Vega MD PCP: Lorena Arana DO Status: [facility] DATE OF SERVICE: 11/05/2014 CHIEF COMPLAINT: Shortness of breath. CHAU HISTORY: The patient is a 69-year-old female with a 3-month history of shortness of breath and sinus infection. She has completed 2 courses of Augmentin and clindamycin, she is currently on clindamycin that she started 1 week ago. She is scheduled to see a dental specialist and an ENT, they concerned about the right upper dental pain and she has had the filling in the one tooth changed out twice now. S he presents today complaining of chest pain. She feels like her right lung blackman congested. She does not have significant chest pain. PHYSICAL EXAMINATION: VITAL SIGNS: Blood pressure is 150/79, temperature 97.4, heart rate 80, respiratory rate 26, pulse oximetry 97% on room air. GENERAL: The patient is walking around the room. She is in no acute distress, speaking full sentences. HEAD AND NECK: Examination is grossly unremarkable. She has mild bilateral anterior cervical lymphadenopathy. HEART: Regular. LUNGS: Clear. ABDOMEN: Soft, nontender. HOSPITAL COURSE: Two-view chest x-ra y shows chronic changes only. I do not appreciate an acute infiltrate. EKG is sinus at 72 with no sign of acute ischemia. CBC reveals a white count of 12.7. Chemistry studies are normal. On repeat evaluation, the patient states that she feels like her nose is well congested currently. We will give her some Afrin nasal spray. She states that she is on the clindamycin, primarily because of her teeth. We will cover her with some Zithromax also for about her sinus and respiratory coverage. DISPOSITION: Discharge. IMPRESSION: 1. Sinusitis. 2. Dyspnea. Kalyn Vega MD T: PHAN Brown OB: [id number] 11/06/14708 <Electronically signed by Kalyn Vega MD> Date Kalyn Vega MD CC: Lorena Arana DO Date Dictat ed: 11/05/142005 Date Transcribed: 11/05/142005 Quill Cleaning Machine Operator: Signed 05-Nov-2014 Discharge Instruction Result: Comments: See Note; NOTES: [facility] Medical Records Department [address] [address] Discharge Instruction 11/05/142001 MR#: [id number] Acct: [id number] Name: DINAH HICKMAN Rep #: [id number] : 1945 69 From: Kalyn Vega MD PCP: Lorena Arana DO Status: REG ER ED Disposition - Plan for ED Patient: Disposition: Home Chief Complaint: Shortness of Breath Instructions: Acute Sinusitis, ED Dyspnea Prescriptions: Azithromycin [Zithromax] 250 mg PO DAILY #4 tablet Referrals: Lorena Arana DO [Primary Care Provider] - 1 Week What to do if you have Problems For any increased pain, shortness of breath, bleeding, nausea or vomiting, chest pain, or any unexpected problems, contact your doctor. Call [facility] ( [phone]) or report to the closest Emergency Room. Call 911 if necessary. 11/05/142004 <Electronically signed by Kalyn Vega MD> Date __ Kalyn Vega MD Cosigner Signature (If Indicated): Date CC: Lorena Arana DO 05-Nov-2014 Chest PA and Lateral Result: Comments: See Note; NOTES: [facility] Imaging Services [address] [place] [address] Radiology Report MR#: [id number] Acct: [id number] Name: DINAH HICKMAN Rep #: [id number] : 1945 F 69 From: Pa Elizabeth DO PCP: Lorena Arana DO Status: [facility] Study: Chest PA and Lateral Date of Exam: 11/05/14 Exam# [id number] Ordering Dr: Kalyn Vega MD STUDY : X-RAY CHEST REASON FOR EXAM: Female, 69 years old. Shortness of breath. Atelectasis. TECHNIQUE: PA and lateral views of the chest. COMPARISON: CT of the chest, April 06, 2012. FINDINGS: Telemetry wires overlie the chest. The lungs are well expanded. There are chronic interstitial changes at the lung bases. There is no demonstrated pleural abnormali ty. Normal size heart. Normal mediastinum and marie. Normal visualized pulmonary arteries. Normal visualized aortic arch and descending thoracic aorta. There are diffuse degenerative changes of the visualized thoracic spine. There is degenerative osteoarthritis of the bilateral shoulders. There is no demonstrated abnormality of the visualized soft tissue structures of the upper abdomen. Reina cystectomy clips are seen in the right upper quadrant. IMPRESSION: Chronic interstitial changes at the lung bases without acute cardiopulmonary disease. Elect ronically Signed: Pa Elizabeth DO at 8:08 EDT Tel [phone], Service support [phone], RAD/Chest PA and Lateral IMPRESSION: 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 Electronically Signed: Pa Elizabeth DO at 8:08 EDT Tel [phone], Service support [phone], CC: Kalyn Vega MD; Lorena Arana DO Quill Cleaning Machine Operator: Signed 10-Sep-2014 Sinus/Facial Bone Result: Comments: See Note; NOTES: [facility] Imaging Services [address] [place] [address] CAT Scan Report MR#: [id number] Acct: [id number] Name: DINAH HICKMAN Rep #: [id number] : 1945 F 68 From: John Santana MD PCP: Lorena Arana DO Status: REG CLI Study: Sinus/Facial Bone Date of Exam: 09/10/14 Exam# [id number] Ordering Dr: Lorena Arana DO STUDY : CT MAXILLOFACIAL SINUSES REASON FOR EXAM: Female, 68 years old. Chronic sinusitis with congestion. Previous surgery the nasal turbinates x2 most recently in 2010. RADIATION DOSAGE (If Supplied B y Facility): CTDIvol = ( 42.71 ) mGy, DLP = ( 560.61 ) mGycm TECHNIQUE: The patient was scanned in a multi detector CT scanner. High resolution axial imaging was performed without the administration of intravenous contrast material. Sagittal and coronal images were reconstructed. COMPARISON: None. FINDINGS: FRONTAL SINUSES: Normal aeration, without muco jah inflammatory disease. ETHMOIDAL SINUSES: Normal aeration, without mucosal inflammatory disease. MAXILLARY SINUSES: There is mild mucosal thickening inferiorly bilaterally. SPHENOIDAL SINUSES: Normal aeration, without mucosal inflammatory disease. There is patency of the bilateral maxillary infundibuli with normal uncinate processes, ethmoid bullae, and hiatus semilunaris. There is a co ncha bullosa present in the right middle turbinate. Normal bilateral inferior turbinates. There is slight deviation of the bony septum to the left. There is patency of the bilateral nasal airways. T he visualized osseous structures are normal. The visualized bilateral orbital contents are normal. There is beam hardening artifact from dental amalgam causing local image degradation. IMPRESSION: Mild inflammatory changes in the maxillary sinuses bilaterally otherwise no acute disease.. Electronically Signed: John Santana MD at 23:48 EST T el [phone], Service support [phone], CC: Lorena Arana DO Quill Cleaning Machine Operator: Signed 08-Aug-2014 Spirometry ([id number]) Comments: see scanned document of test done to see results reviewed today with patient Result: 27-May-2014 Liver Result: Comments: See Note; NOTES: [facility] [address] [place] [address] Ultrasound Report MR#: [id number] Acct: [id number] Name: DINAH HICKMAN Rep #: [id number] : 1945 F 68 From: Kale Sanders MD PCP: Lorena Arana DO Status: REG CLI Study: Liver Date of Exam: 05/27/14 Exam# [id number] Ordering Dr: Lorena Arana DO STUDY: ABD OMINAL ULTRASOUND - RIGHT UPPER QUADRANT REASON FOR VISIT: Female, 68 years old. Abnormal liver function tests. TECHNIQUE: Ultrasound evaluation of the right upper quadrant was performed with real- time and static uriarte-scale imaging. TECHNICAL QUALITY: Limited. Examination limited by bowel gas. COMPARISON: Comparison is made with prior CT scan of the abdomen dated April 29, 2014. FINDINGS: Liver: The liver measures 15.3 cm. There is increased echogenicity consistent with fatty infiltration. The bile ducts are within normal limits. There is hepa tic color flow. The direction of portal flow is hepatopetal. There is no demonstrated mass lesion. Gallbladder: The patient is status post cholecystectomy. Common Bile Duct (C.B.D.): The common himanshu e duct measures 4.5 mm. Pancreas: Normal size of the head, body and tail of the pancreas. There is normal echogenicity of the pancreas. There is no demonstrated pancreatic mass or cyst. Right Kidn ey: Normal size of the right kidney. The right kidney measures 10.3 cm x 7.8 cm x 3.7 cm. Normal renal cortex. The right cortex measures 1.0 cm. There is no demonstrated renal mass or cyst. There is n o right hydronephrosis. IMPRESSION: Fatty infiltration of the liver. The patient is status post cholecystectomy. Electronically Signed: Adele Pryor at 13:58 EDT Tel [phone], Service support [phone], CC: Lorena Arana DO Quill Cleaning Machine Operator: Signed 29-Apr-2014 Abdomen/Pelvis WITH Contrast Result: Comments: See Note; NOTES: [facility] [address] [address] CAT Scan Report MR#: [id number] Acct: [id number] Name: DINAH HICKMAN Rep #: [id number] : 1945 F 68 From: Kale Sanders MD PCP: Lorena Arana DO Status: REG CLI Study: Abdomen/Pelvis WITH Contrast Date of Exam: 04/29/14 Exam# [id number] Ordering Dr: Yelena Costello MD STUDY: CT ABDOMEN AND PELVIS WITH CONTRAST REASON FOR EXAM: Female, 68 years old. Right ovarian cyst. RADIATION DOSAGE (If Supplied By Facility): CTDIvol = ( 16.24 ) mGy, DLP = ( 1460.98 ) mGycm TECHNIQUE: Transaxial images were obtained from the dome of the diaphragm to the symphysis pubis without oral contrast. 100mL ml of Isovue 300 contrast was administered. Sagittal and coronal i mages were reconstructed. Delayed imaging was obtained as well. COMPARISON: Comparison is made with prior study dated November 08, 2013. FINDINGS: Stable linear d ensity in the anterior aspect of the left lower lobe suggestive of linear scarring or atelectasis. Stable linear scarring versus atelectasis is also seen in the right middle lobe. Coronary artery abran cification. There is decreased attenuation of the liver consistent with steatosis. There are surgical clips in the gallbladder fossa consistent with a prior cholecystectomy. Normal spleen. Normal pa ncreas. Normal bilateral adrenal glands. Normal right kidney. Normal left kidney. Moderate sized hiatal hernia. Normal small intestine. There are multiple colonic diverticula consistent with dive rticulosis. The patient is status post cholecystectomy. There is scattered atherosclerotic calcification of the abdominal aorta, without a demonstrated aneurysm. Normal inferior vena cava. Normal r etroperitoneum. Normal urinary bladder. There is absence of the uterus consistent with a prior hysterectomy. There is a stable 3.7 cm x 2.1 cm cystic structure in the right adnexal region. This is u nchanged. Normal abdominal wall. Normal osseous structures. IMPRESSION: Stable scarring at the lung bases. Stable cystic structure in the right adnexal region. Electronically Signed: Kale Sanders MD at 9:50 EDT Tel [phone], Service support [phone], CC: Yelena Costello MD; Lorena Arana DO Quill Cleaning Machine Operator: Signed 04-Mar-2014 Transvaginal Non- Result: Comments: See Note; NOTES: [facility] [address] [place] [address] Ultrasound Report MR#: [id number] Acct: [id number] Name: DINAH HICKMAN Rep #: [id number] : 1945 F 68 From: Kale Sanders MD PCP: Status: REG CLI Study: Transvaginal Non- Date of Exam: 03/04/14 Exam# [id number] Ordering Dr: Lorena Arana DO ADDENDUM by Kale Sanders MD on 03/15/14 at 1355 ADDENDUM This is an addendum report for billing. The pelvic ultrasound was performed using both the transabdominal and transvaginal techniques. Electronically Signed: Kale Sanders MD at 13:55 EDT Tel [phone], Service suppor t [phone], 03/15/14 1355 Date cc: Lorena Arana DO * Signed STUDY: ULTRASOUND OF THE FEMALE PELVIS - COMPLETE REASON FOR EXAM: Female, 68 years old. LMP: The patient is status post hysterectomy. The patient is status post bilateral oophorectomy. TECHNIQUE: TECHNICAL QUALITY: Adequate. COMPARISON: None. FINDINGS: The patient is status post hysterectomy. The right ovary is visualized. The right ovary measures 4.3 cm x 3.7 cm x 2.8 cm. There is a 2.9 cm x 2.3 cm x 1.9 cm cyst within it. There is no visualized right adnexal mass or complex lesion. There is normal arterial and normal venous vascularity. The left ovary is non-visualized. There is no fluid in the cul-de-sac. IMPRESSION: Findings suggestive of a 2.9 cm x 2.3 cm x 1.9 cm cyst in the right ovary. Electronically Signed: Kale Sanders MD at 17:24 EDT Tel [phone], Serv ice support [phone], CC: Lorena Arana DO [employer] Operator: Signed 04-Mar-2014 Transvaginal Non- Result: Comments: See Note; NOTES: [facility] [address] [place] [address] Ultrasound Report MR#: [id number] Acct: [id number] Name: DINAH HICKMAN Rep #: [id number] : 1945 F 68 From: Kale Sanders MD PCP: Status: REG CLI Study: Transvaginal Non- Date of Exam: 03/04/14 Exam# [id number] Ordering Dr: Lorena Arana DO STUDY: UL TRASOUND OF THE FEMALE PELVIS - COMPLETE REASON FOR EXAM: Female, 68 years old. LMP: The patient is status post hysterectomy. The patient is status post bilateral oophorectomy. TECHNIQUE: TECHNIC AL QUALITY: Adequate. COMPARISON: None. FINDINGS: The patient is status post hysterectomy. The right ovary is visualized. The right ovary measures 4.3 cm x 3. 7 cm x 2.8 cm. There is a 2.9 cm x 2.3 cm x 1.9 cm cyst within it. There is no visualized right adnexal mass or complex lesion. There is normal arterial and normal venous vascularity. The left ovar y is non-visualized. There is no fluid in the cul-de-sac. IMPRESSION: Findings suggestive of a 2.9 cm x 2.3 cm x 1.9 cm cyst in the right ovary. Electronical ly Signed: Kale Sanders MD at 17:24 EDT Tel [phone], Service support [phone], CC: Lorena Arana DO [employer] Cle[employer] Machine Operator: Signed 04-Mar-2014 Bilat Scrn Digital & CAD Result: Comments: See Note; NOTES: [facility] [address] [place] [address] Breast Imaging Report MR#: [id number] Acct: [id number] Name: DINAH HICKMAN Rep #: [id number] : 1945 F 68 From: Kale Sanders MD PCP: Status: REG CLI Exam# [id number] Ordering Dr: Lorena Arana DO MAMMOGRAPHY - BILATERAL SCREENING REASON FOR EXAM: Female, 68 years old. Routine annual screening examination. PERTINENT HISTORY: Non- contributory. TECHNIQUE: Digital examination. Mediolateral oblique (MLO) and craniocaudad (CC) views of both breasts were obtained. CAD: CAD was performed on this study. COMPARISON: Comparison is made with prior examination dated February 15, 2013 and January 05, 2012. FINDINGS: The greta ast composition is composed of scattered areas of fibroglandular densities ranging from 25% to 50% of the total breast volume. There are no dominant masses or suspicious calcifications. Once again, there is asymmetry of the breast tissue with more breast tissue is seen in the upper outer quadrant of the left breast as compared to the left side. This is unchanged. No other significant abnormali ties are identified. There has been no significant change since the prior study. IMPRESSION: Stable bilateral screening mammogram. Yearly follow-up recommended. (A) ASSESSMENT CATEGORY: BIRADS Category 2: Benign finding(s). A letter regarding these results will be sent to the patient by the facility within 30 days. Coni roximately 10% of breast cancers are not detected by mammography. A normal mammogram should not delay biopsy of a clinically suspicious abnormality. Electronically Signed: Kale Sanders MD 2 at 14:27 EDT Tel [phone], Service support [phone], CC: Lorena Arana DO [employer] Operator: Signed 04-Mar-2014 Pelvic (Non ) Result: Comments: See Note; NOTES: [facility] [address] [place] [address] Ultrasound Report MR#: [id number] Acct: [id number] Name: DINAH HICKMAN Rep #: [id number] : 1945 F 68 From: Kale Sanders MD PCP: Status: REG CLI Study: Pelvic (Non ) Date of Exam: 03/04/14 Exam# [id number] Ordering Dr: Lorena Arana DO STUDY: ULTRAS OUND OF THE FEMALE PELVIS - COMPLETE REASON FOR EXAM: Female, 68 years old. LMP: The patient is status post hysterectomy. The patient is status post bilateral oophorectomy. TECHNIQUE: TECHNICAL Q UALITY: Adequate. COMPARISON: None. FINDINGS: The patient is status post hysterectomy. The right ovary is visualized. The right ovary measures 4.3 cm x 3.7 cm x 2.8 cm. There is a 2.9 cm x 2.3 cm x 1.9 cm cyst within it. There is no visualized right adnexal mass or complex lesion. There is normal arterial and normal venous vascularity. The left ovary is non-visualized. There is no fluid in the cul-de-sac. IMPRESSION: Findings suggestive of a 2.9 cm x 2.3 cm x 1.9 cm cyst in the right ovary. Electronically S igned: Kale Sanders MD at 17:24 EDT Tel [phone], Service support [phone], CC: Lorena Arana DO [employer] Machine Operator: Signed 04-Mar-2014 Pelvic (Non ) Result: Comments: See Note; NOTES: [facility] [address] [place] [address] Ultrasound Report MR#: [id number] Acct: [id number] Name: DINAH HICKMAN Rep #: [id number] : 1945 F 68 From: Kale Sanders MD PCP: Status: REG CLI Study: Pelvic (Non ) Date of Exam: 03/04/14 Exam# [id number] Ordering Dr: Lorena Arana DO ADDENDUM by Alex Sanders MD on 03/15/14 at 1355 ADDENDUM This is an addendum report for billing. The pelvic ultrasound was performed using both the transabdominal and transvaginal techniques. Electronically Signed: Kael Sanders MD at 13:55 EDT Tel [phone], Service support [phone], 03/15/14 1355 Date cc: Lorena Arana DO * Signed STUDY: ULTRASOUND OF THE FEMALE PELVIS - COMPLETE REASON FOR EXAM: Female, 68 years old. LMP : The patient is status post hysterectomy. The patient is status post bilateral oophorectomy. TECHNIQUE: TECHNICAL QUALITY: Adequate. COMPARISON: None. FIND INGS: The patient is status post hysterectomy. The right ovary is visualized. The right ovary measures 4.3 cm x 3.7 cm x 2.8 cm. There is a 2.9 cm x 2.3 cm x 1.9 cm cyst within it. There is no visu alized right adnexal mass or complex lesion. There is normal arterial and normal venous vascularity. The left ovary is non-visualized. There is no fluid in the cul-de-sac. IMPRESSION: Findings suggestive of a 2.9 cm x 2.3 cm x 1.9 cm cyst in the right ovary. Electronically Signed: Kale Sanders MD at 17:24 EDT Tel [phone], Service support [phone], CC: Lorena Arana DO [employer] Machine Operator: Signed 12-Dec-2013 Foot min 3 Views Result: Comments: See Note; NOTES: [facility] [address] [place] [address] Radiology Report MR#: [id number] Acct: [id number] Name: DINAH HICKMAN Rep #: : 1945 F 68 From: Pa Elizabeth DO PCP: Lorena Arana DO Status: REG CLI Study: Foot min 3 Views Date of Exam: 12/12/13 Exam# [id number] Ordering Dr: Lorena Arana DO STUDY: X-RAY - LEFT FOOT CLINICAL: Female, 68 years old. Pain over the entire foot.. TECHNIQUE: 3 view(s) of the foot. COMPARISON: None. FINDINGS: Normal talus, ca lcaneus, and tarsal bones. Normal visualized subtalar, talonavicular, calcaneocuboid, tarsal and tarsometatarsal articulations. Normal metatarsi. Normal metatarsophalangeal joint of the great toe . Normal tibial and fibular sesamoid bones. Normal interphalangeal joint of the great toe. Normal phalanges of the great toe. Normal second through fifth metatarsophalangeal joints. There is mild d egenerative arthrosis of interphalangeal joints. Normal phalanges of the lesser toes. The soft tissue structures are unremarkable. IMPRESSION: Minimal degenera tive changes of the forefoot without acute abnormality. Electronically Signed: Pa Elizabeth DO at 19:56 EDT Tel [phone], Service support [phone], CC: Ivonne Arana DO [employer] Machine Operator: Signed 12-Dec-2013 Hip min 2 Views Result: Comments: See Note; NOTES: [facility] [address] [place] [address] [place] [address] Radiology Report MR#: [id number] Acct: [id number] Name: DINAH HICKMAN Rep #: : 1945 F 68 From: Pa Elizabeth DO PCP: Lorena Arana DO Status: REG CLI Study: Hip min 2 Views Date of Exam: 12/12/13 Exam# [id number] Ordering Dr: Lorena Arana DO STUDY: X -RAY - LEFT HIP REASON FOR EXAM: Female, 68 years old. Bilateral hip pain for years. TECHNIQUE: 2 view(s) of the hip. COMPARISON: CT of the abdomen and pelvis March 18, 2012. FINDINGS: There is no acute fracture, dislocation or destructive osseous pathology. Normal femoral head, neck, intertrochanteric region and visualized proximal femur. Normal aceta bulum. There is moderate articular joint space narrowing. Normal visualized superior and inferior pubic rami and ischial tuberosities. There is no demonstrated soft tissue abnormality. IMPRESSION: Degenerative changes of the hip. Electronically Signed: Pa Elizabeth DO at 19:48 EDT Tel [phone], Service support [phone], Fax CC: Lorena Arana DO [employer] Machine Operator: Signed 12-Dec-2013 Hip min 2 Views Result: Comments: See Note; NOTES: [facility] [address] [place] [address] Radiology Report MR#: [id number] Acct: [id number] Name: DINAH HICKMAN Rep #: [id number] : 1945 F 68 From: Pa Elizabeth DO PCP: Lorena Arana DO Status: REG CLI Study: Hip min 2 Views Date of Exam: 12/12/13 Exam# [id number] Ordering Dr: Lorena Arana DO STUDY: X -RAY - RIGHT HIP REASON FOR EXAM: Female, 68 years old. Bilateral hip pain for years. TECHNIQUE: 2 view(s) of the hip. COMPARISON: CT of the abdomen and pelvis, March 18, 2012. FINDINGS: There is no acute fracture, dislocation or destructive osseous pathology. Normal femoral head, neck, intertrochanteric region and visualized proximal femur. There is o steoarthritic spur formation of the acetabular rim. There is mild articular joint space narrowing. Normal visualized superior and inferior pubic rami and ischial tuberosities. There is no demonstr ated soft tissue abnormality. IMPRESSION: Degenerative changes of the hip. Electronically Signed: Pa Elizabeth DO at 19:47 EDT Tel [phone], Ser vice support [phone], CC: Lorena Arana DO [employer] Cle[employer] Machine Operator: Signed 12-Dec-2013 Knee 4 or More Views Result: Comments: See Note; NOTES: [facility] [address] [place] [address] Radiology Report MR#: [id number] Acct: [id number] Name: SILVINADINAH A Rep #: : 1945 F 68 From: Pa Elizabeth DO PCP: Lorena Arana DO Status: REG CLI Study: Knee 4 or More Views Date of Exam: 12/12/13 Exam# [id number] Ordering Dr: Lorena Arana DO MAURICIO DY: X-RAY - RIGHT KNEE REASON FOR EXAM: Female, 68 years old. Bilateral knee pain for years. Left greater than right. TECHNIQUE: 4 view(s) of the knee. COMPARISON: None. FINDINGS: Normal visualized distal femur. Normal visualized proximal tibia and fibula. Normal proximal tibiofibular articulation. There is no acute fracture, dislocation or destructive osseous pathology. There is moderate degenerative arthrosis of the medial femorotibial compartment with moderate joint space narrowing. Normal lateral femorotibial compartment. There is moderate deg enerative arthrosis of the patellofemoral articulation. The soft tissue structures are unremarkable. IMPRESSION: Degenerative changes right knee with small sup rapatellar joint effusion. Electronically Signed: Pa Elizabeth DO at 19:57 EDT Tel [phone], Service support [phone], CC: Lorena Arana DO [employer] Cle[employer] Machine Operator: Signed 12-Dec-2013 Knee 4 or More Views Result: Comments: See Note; NOTES: [facility] [address] [place] [address] Radiology Report MR#: [id number] Acct: [id number] Name: DINAH HICKMAN Rep #: [id number] : 1945 F 68 From: Kale Sanders MD PCP: Lorena Arana DO Status: REG CLI Study: Knee 4 or More Views Date of Exam: 12/12/13 Exam# [id number] Ordering Dr: Lorena Arana DO STUDY: X-RAY - LEFT KNEE REASON FOR EXAM: Female, 68 years old. Chronic knee pain. TECHNIQUE: 4 view(s) of the knee. COMPARISON: None. FINDINGS: Normal visualized distal femur. Normal visualized proximal tibia and fibula. Normal proximal tibiofibular articulation. There is severe degenerative arthrosis of the medial femorotibial compartment with se joshua joint space narrowing. Normal lateral femorotibial compartment. There is mild degenerative arthrosis of the patellofemoral articulation. Small joint effusion. __ IMPRESSION: Degenerative arthrosis. Small joint effusion. Electronically Signed: Kale Sanders MD at 16:13 EDT Tel [phone], Service support [phone], Fax RAD/Knee 4 or More Views IMPRESSION: Degenerative arthrosis. Small joint effusion. Electronically Signed: Kale Sanders MD at 16:13 EDT Tel [phone], Service support [phone], CC: Lorena Arana DO [employer] Cleaning Machine Operator: Signed 12-Dec-2013 Pelvis 1 or 2 Views Result: Comments: See Note; NOTES: [facility] [address] [place] [address] Radiology Report MR#: [id number] Acct: [id number] Name: DINAH HICKMAN Rep #: [id number] : 1945 F 68 From: Pa Elizabeth DO PCP: Lorena Arana DO Status: REG CLI Study: Pelvis 1 or 2 Views Date of Exam: 12/12/13 Exam# [id number] Ordering Dr: Lorena Arana DO STUD Y: X-RAY - PELVIS REASON FOR EXAM: Female, 68 years old. Bilateral hip pain for years. TECHNIQUE: One view of the pelvis was obtained. COMPARISON: Right hip and left hip, December 12, 2013. CT of the a bdomen and pelvis, November 08, 2013. FINDINGS: There is a non-specific bowel gas pattern. Normal visualized soft tissue structures. Normal bilateral iliac wings , sacroiliac joints and visualized sacrum. Normal visualized bilateral superior and inferior pubic rami. Normal pubic symphysis. Normal ischial tuberosities. Normal visualized right femoral head. No rmal right acetabulum. There is mild articular joint space narrowing of the right hip. Normal visualized left femoral head. Normal left acetabulum. There is mild articular joint space narrowing of t he left hip. IMPRESSION: Mild degenerative changes of the bilateral hips. Electronically Signed: Pa Elizabeth DO at 17:06 EDT Tel [phone], Serv ice support [phone], CC: Lorena Arana DO [employer] Cleaning Machine Operator: Signed 21-Nov-2013 Spirometry (76957) Comments: normal- but really bad technique Result: 21-Nov-2013 ELECTROCARDIOGRAM, COMPLETE (ECG) (41757) Comments: nsr no acute chg Result: [MEASUREMENTS ANALYSIS] Date of Test: 11/21/2013 10:48:43; Heart Rate: 68; NC Interval: 148; QRS: 84; QT Interval: 410; Corrected QT Interval (QTc): 424; P Wave Cantil: 17; QRS Wave Cantil: 8; T Wave Cantil: 47; Blood Pressure: 128/64 [ECG DIAGNOSTIC STATEMENTS] Date of Test: 11/21/2013 10:48:43; Summary: Sinus Rhythm WITHIN NORMAL LIMITS 17-Nov-2013 Emergency Department Summary Result: Comments: See Note; NOTES: [facility] Medical Records [facility] [address] [facility] [place] [address] Emergency Department Summary MR#: [id number] Acct: [id number] Name: DINAH MADISON Rep #: [id number] : 1945 68 From: Abril Loving MD PCP: Lorena Arana DO Status: DEP ER DATE OF SERVICE: 11/08/2013 CHIEF COMPLAINT: Abdominal pain. HISTORY OF PRESENT I LLNESS: This is a 68-year-old female who is having severe lower abdominal cramping and pain since last night. It has been intermittent and associated with some loose watery type stool and feeling o f urgency. No urinary symptoms. No fever or chills. No nausea or vomiting. She has been eating without any difficulty. PAST MEDICAL HISTORY: Significant for GERD, chronic back and knee pain, hyperc holesterolemia, appendectomy, cholecystectomy, hysterectomy and bilateral salpingo- oophorectomy. PHYSICAL EXAMINATION: VITAL SIGNS: Noted for a little hypertension, but otherwise unremarkable. GEN ERAL: This is a pleasant, well-appearing female in no distress. ABDOMEN: Inspection of her abdomen is normal. It is actually soft and nontender at the time of my exam, it is not distended. HEART: Ra te is regular without murmurs. LUNGS: Clear. EXTREMITIES: She has well-healed surgical scars in her abdomen, but no other findings on inspection. CLINICAL COURSE AND DECISION MAKING: The patient was given Bentyl and morphine. CBC was notable for white count of 14. Chemistry is unremarkable. Urinalysis notable only for blood, but no other evidence of infection. CT abdomen and pelvis was rela tively benign, Dr. Sanders did comment that she may have a right ovarian cyst. I spoke with him directly informing him that she has had an oophorectomy and he noted that the cystic area was noted on a previous CT and this is likely not significant. I discussed all these findings with the patient and I do feel that she can be discharged safely at this time given her relatively benign workup. She will be prescribed Bentyl. She can take as needed. She will return for recurrence of pain or if she develops vomiting, fever or any other concerns. Otherwise, she will follow up with her PCP an d she is comfortable with that plan. DISPOSITION: Discharge. DIAGNOSIS: Nonspecific lower abdominal pain. Abril Loving MD T: NTS JOB: [id number] 11/17/13 1534 <Electronically signed by Abril Loving MD> Date Abril Loving MD CC: Lorena Arana DO Date Dictated: 11/08/131607 Date Transcribed: 11/08/131607 [employer] Cleaning Machine Operator: Signed 13-Jul-2013 Foot min 3 Views Result: Comments: See Note; NOTES: [facility] [address] [place] [address] Radiology Report MR#: [id number] Acct: [id number] Name: DINAH HICKMAN Rep #: [id number] : 1945 F 67 From: Kale Sanders MD PCP: Lorena Arana DO Status: REG CLI Study: Foot min 3 Views Date of Exam: 07/13/13 Exam# [id number] Ordering Dr: Mirian Hartley STUDY: X -RAY - RIGHT FOOT CLINICAL: Female, 67 years old. Right heel pain following injury. TECHNIQUE: 3 view(s) of the foot. COMPARISON: None. FINDINGS: There is a n enthesophyte involving the posterior superior calcaneus at the site of insertion of the Achilles tendon. Normal visualized subtalar, talonavicular, calcaneocuboid, tarsal and tarsometatarsal artic ulations. Normal metatarsi. Normal metatarsophalangeal joint of the great toe. Normal tibial and fibular sesamoid bones. Normal interphalangeal joint of the great toe. Normal phalanges of the grea t toe. Normal second through fifth metatarsophalangeal joints. Normal interphalangeal joints and phalanges of the lesser toes. The soft tissue structures are unremarkable. IMPRESSION: Normal x-ray examination of the foot. Electronically Signed: Kale Sanders M.D. at 11:37 EST , Service support [phone], Fax CC: Mirian Hartley; Lorena Arana DO [employer] Cleaning Machine Operator: Signed Family History Unknown Family Member Name Dates Details Essential Hypertension Status: Active Hypothyroidism Status: Active Ovarian/pelvic disease Status: Active Social History Name Dates Details Caffeine Use Comments: Coffee 2 cups daily Status: Active Exercise History Comments: Inactive Status: Active Living Situation Comments: Lives with spouse Status: Active No Drug Use Status: Active Non Drinker/No Alcohol Use Status: Active Non Smoker/No Tobacco Use Status: Active Tobacco use: Former smoker. Status: Active Smoking Status Name Dates Details Former smoker Vital Signs Date Test Result Details [id number] Temperature 98.4 f Comments: Method: Temporal Pulse 85 /min Comments: Pattern: Regular Respiration Rate 19 /min Comments: Pattern: Unlabored O2 SAT 94 % Comments: Room air BP Systolic 132 mm[Hg] Comments: Patient Position: Sitting; Cuff Location: Left Arm; Cuff Size: Standard BP Diastolic 82 mm[Hg] Comments: Patient Position: Sitting; Cuff Location: Left Arm; Cuff Size: Standard Weight 149.375 lb Height 63 in Body Mass Index Calculated 26.46 kg/m2 Body Surface Area Calculated 1.71 m2 :03 Pulse 78 /min Comments: Pattern: Regular Respiration Rate 18 /min Comments: Pattern: Unlabored O2 SAT 97 % Comments: Room air BP Systolic 138 mm[Hg] Comments: Patient Position: Sitting; Cuff Location: Left Arm; Cuff Size: Large BP Diastolic 82 mm[Hg] Comments: Patient Position: Sitting; Cuff Location: Left Arm; Cuff Size: Large Weight 149.375 lb Height 63 in Body Mass Index Calculated 26.46 kg/m2 Body Surface Area Calculated 1.71 m2 :07 Temperature 98.6 f Comments: Method: Temporal Pulse 94 /min Comments: Pattern: Regular Respiration Rate 18 /min Comments: Pattern: Unlabored O2 SAT 96 % Comments: Room air BP Systolic 128 mm[Hg] Comments: Patient Position: Sitting; Cuff Location: Left Arm; Cuff Size: Large BP Diastolic 84 mm[Hg] Comments: Patient Position: Sitting; Cuff Location: Left Arm; Cuff Size: Large Weight 157.125 lb Height 63 in Body Mass Index Calculated 27.83 kg/m2 Body Surface Area Calculated 1.75 m2 :32 Pulse 75 /min Comments: Pattern: Regular Respiration Rate 18 /min Comments: Pattern: Unlabored O2 SAT 96 % Comments: Room air BP Systolic 128 mm[Hg] Comments: Patient Position: Sitting; Cuff Location: Left Arm; Cuff Size: Large BP Diastolic 82 mm[Hg] Comments: Patient Position: Sitting; Cuff Location: Left Arm; Cuff Size: Large Weight 157.125 lb Height 63 in Body Mass Index Calculated 27.83 kg/m2 Body Surface Area Calculated 1.75 m2 :55 Pulse 68 /min Comments: Pattern: Regular Respiration Rate 18 /min Comments: Pattern: Unlabored O2 SAT 98 % Comments: Room air BP Systolic 148 mm[Hg] Comments: Patient Position: Sitting; Cuff Location: Left Arm; Cuff Size: Standard BP Diastolic 72 mm[Hg] Comments: Patient Position: Sitting; Cuff Location: Left Arm; Cuff Size: Standard Weight 156.125 lb Height 63 in Body Mass Index Calculated 27.66 kg/m2 Body Surface Area Calculated 1.74 m2 :03 Pulse 78 /min Comments: Pattern: Regular Respiration Rate 18 /min Comments: Pattern: Unlabored O2 SAT 97 % Comments: Room air BP Systolic 138 mm[Hg] Comments: Patient Position: Standing; Cuff Location: Left Arm; Cuff Size: Large BP Diastolic 80 mm[Hg] Comments: Patient Position: Standing; Cuff Location: Left Arm; Cuff Size: Large Weight 156.125 lb Height 63 in Body Mass Index Calculated 27.66 kg/m2 Body Surface Area Calculated 1.74 m2 :59 Pulse 72 /min Comments: Pattern: Regular Respiration Rate 18 /min Comments: Pattern: Unlabored O2 SAT 98 % Comments: Room air BP Systolic 124 mm[Hg] Comments: Patient Position: Sitting; Cuff Location: Left Arm; Cuff Size: Standard BP Diastolic 72 mm[Hg] Comments: Patient Position: Sitting; Cuff Location: Left Arm; Cuff Size: Standard Weight 155 lb Height 63 in Body Mass Index Calculated 27.46 kg/m2 Body Surface Area Calculated 1.74 m2 [id number]:17 Temperature 98.4 f Comments: Method: Temporal Pulse 108 /min Comments: Pattern: Regular Respiration Rate 16 /min Comments: Pattern: Unlabored O2 SAT 97 % Comments: Room air BP Systolic 146 mm[Hg] Comments: Patient Position: Sitting; Cuff Location: Left Arm; Cuff Size: Standard BP Diastolic 80 mm[Hg] Comments: Patient Position: Sitting; Cuff Location: Left Arm; Cuff Size: Standard Weight 159 lb Height 63 in Body Mass Index Calculated 28.17 kg/m2 Body Surface Area Calculated 1.75 m2 [id number] Comments: Recheck 158/102-Clonidine 0.1mg given.156/94 at recheck Pulse 85 /min Comments: Pattern: Regular Respiration Rate 18 /min Comments: Pattern: Unlabored O2 SAT 96 % Comments: Room air BP Systolic 182 mm[Hg] Comments: Patient Position: Sitting; Cuff Location: Left Arm; Cuff Size: Standard BP Diastolic 96 mm[Hg] Comments: Patient Position: Sitting; Cuff Location: Left Arm; Cuff Size: Standard Weight 154.125 lb Height 63 in Body Mass Index Calculated 27.3 kg/m2 Body Surface Area Calculated 1.73 m2 :43 Pulse 76 /min Comments: Pattern: Regular Respiration Rate 18 /min Comments: Pattern: Unlabored O2 SAT 96 % Comments: Room air BP Systolic 152 mm[Hg] Comments: Patient Position: Sitting; Cuff Location: Left Arm; Cuff Size: Standard BP Diastolic 80 mm[Hg] Comments: Patient Position: Sitting; Cuff Location: Left Arm; Cuff Size: Standard Weight 154.125 lb Height 63 in Body Mass Index Calculated 27.3 kg/m2 Body Surface Area Calculated 1.73 m2 :05 Temperature 98.4 f Comments: Method: Temporal Pulse 81 /min Comments: Pattern: Regular Respiration Rate 16 /min Comments: Pattern: Unlabored O2 SAT 96 % Comments: Room air BP Systolic 136 mm[Hg] Comments: Patient Position: Sitting; Cuff Location: Left Arm; Cuff Size: Standard BP Diastolic 72 mm[Hg] Comments: Patient Position: Sitting; Cuff Location: Left Arm; Cuff Size: Standard Weight 157 lb Height 63 in Body Mass Index Calculated 27.81 kg/m2 Body Surface Area Calculated 1.74 m2 :51 Temperature 98.2 f Comments: Method: Temporal Pulse 98 /min Comments: Pattern: Regular Respiration Rate 16 /min Comments: Pattern: Unlabored O2 SAT 96 % Comments: Room air BP Systolic 136 mm[Hg] Comments: Patient Position: Sitting; Cuff Location: Left Arm; Cuff Size: Standard BP Diastolic 78 mm[Hg] Comments: Patient Position: Sitting; Cuff Location: Left Arm; Cuff Size: Standard Weight 152 lb Height 63 in Body Mass Index Calculated 26.93 kg/m2 Body Surface Area Calculated 1.72 m2 :47 Temperature 97 f Comments: Method: Temporal Pulse 90 /min Comments: Pattern: Regular Respiration Rate 16 /min Comments: Pattern: Unlabored O2 SAT 95 % Comments: Room air BP Systolic 150 mm[Hg] Comments: Patient Position: Sitting; Cuff Location: Left Arm; Cuff Size: Standard BP Diastolic 80 mm[Hg] Comments: Patient Position: Sitting; Cuff Location: Left Arm; Cuff Size: Standard Weight 152 lb Height 63 in Body Mass Index Calculated 26.93 kg/m2 Body Surface Area Calculated 1.72 m2 :52 Pulse 77 /min Comments: Pattern: Regular Respiration Rate 16 /min Comments: Pattern: Unlabored O2 SAT 96 % Comments: Room air BP Systolic 136 mm[Hg] Comments: Patient Position: Sitting; Cuff Location: Left Arm; Cuff Size: Standard BP Diastolic 84 mm[Hg] Comments: Patient Position: Sitting; Cuff Location: Left Arm; Cuff Size: Standard Weight 152 lb Height 63 in Body Mass Index Calculated 26.93 kg/m2 Body Surface Area Calculated 1.72 m2 :53 Temperature 97.8 f Pulse 80 /min Comments: Pattern: Regular Respiration Rate 16 /min Comments: Pattern: Unlabored O2 SAT 95 % Comments: Room air BP Systolic 126 mm[Hg] Comments: Patient Position: Sitting; Cuff Location: Left Arm; Cuff Size: Standard BP Diastolic 84 mm[Hg] Comments: Patient Position: Sitting; Cuff Location: Left Arm; Cuff Size: Standard Weight 149 lb Height 63 in Body Mass Index Calculated 26.39 kg/m2 Body Surface Area Calculated 1.71 m2 :17 Pulse 70 /min Comments: Pattern: Regular Respiration Rate 18 /min Comments: Pattern: Unlabored O2 SAT 97 % Comments: Room air BP Systolic 138 mm[Hg] Comments: Patient Position: Sitting; Cuff Location: Left Arm; Cuff Size: Standard BP Diastolic 80 mm[Hg] Comments: Patient Position: Sitting; Cuff Location: Left Arm; Cuff Size: Standard Weight 149 lb Height 63 in Body Mass Index Calculated 26.39 kg/m2 Body Surface Area Calculated 1.71 m2 :41 Pulse 66 /min Comments: Pattern: Regular Respiration Rate 18 /min Comments: Pattern: Unlabored O2 SAT 96 % Comments: Room air BP Systolic 158 mm[Hg] Comments: Patient Position: Sitting; Cuff Location: Left Arm; Cuff Size: Standard BP Diastolic 98 mm[Hg] Comments: Patient Position: Sitting; Cuff Location: Left Arm; Cuff Size: Standard Weight 145 lb Height 63 in Body Mass Index Calculated 25.69 kg/m2 Body Surface Area Calculated 1.69 m2 :16 Pulse 74 /min Comments: Pattern: Regular Respiration Rate 16 /min Comments: Pattern: Unlabored O2 SAT 98 % Comments: Room air BP Systolic 126 mm[Hg] Comments: Patient Position: Sitting; Cuff Location: Left Arm; Cuff Size: Standard BP Diastolic 78 mm[Hg] Comments: Patient Position: Sitting; Cuff Location: Left Arm; Cuff Size: Standard Weight 145 lb Height 63 in Body Mass Index Calculated 25.69 kg/m2 Body Surface Area Calculated 1.69 m2 :09 Temperature 97.9 f Comments: Method: Temporal Pulse 73 /min Comments: Pattern: Regular Respiration Rate 16 /min Comments: Pattern: Unlabored O2 SAT 98 % Comments: Room air BP Systolic 140 mm[Hg] Comments: Patient Position: Sitting; Cuff Location: Left Arm; Cuff Size: Standard BP Diastolic 78 mm[Hg] Comments: Patient Position: Sitting; Cuff Location: Left Arm; Cuff Size: Standard Weight 145 lb Height 63 in Body Mass Index Calculated 25.69 kg/m2 Body Surface Area Calculated 1.69 m2 :32 Temperature 97.4 f Comments: Method: Temporal Pulse 76 /min Comments: Pattern: Regular Respiration Rate 16 /min Comments: Pattern: Unlabored O2 SAT 98 % Comments: Room air BP Systolic 127 mm[Hg] Comments: Patient Position: Sitting; Cuff Location: Left Arm; Cuff Size: Standard BP Diastolic 70 mm[Hg] Comments: Patient Position: Sitting; Cuff Location: Left Arm; Cuff Size: Standard Weight 146 lb Height 63 in Body Mass Index Calculated 25.86 kg/m2 Body Surface Area Calculated 1.69 m2 :37 Pulse 83 /min Comments: Pattern: Regular Respiration Rate 18 /min Comments: Pattern: Unlabored O2 SAT 96 % Comments: Room air BP Systolic 120 mm[Hg] Comments: Patient Position: Sitting; Cuff Location: Left Arm; Cuff Size: Large BP Diastolic 80 mm[Hg] Comments: Patient Position: Sitting; Cuff Location: Left Arm; Cuff Size: Large Weight 155 lb Height 63 in Body Mass Index Calculated 27.46 kg/m2 Body Surface Area Calculated 1.74 m2 :42 Comments: hearing wnlDr. Gill and had a glaucoma test Pulse 73 /min Comments: Pattern: Regular Respiration Rate 18 /min Comments: Pattern: Unlabored O2 SAT 96 % Comments: Room air BP Systolic 138 mm[Hg] Comments: Patient Position: Sitting; Cuff Location: Left Arm; Cuff Size: Large BP Diastolic 82 mm[Hg] Comments: Patient Position: Sitting; Cuff Location: Left Arm; Cuff Size: Large Weight 154.25 lb Height 63 in Body Mass Index Calculated 27.32 kg/m2 Body Surface Area Calculated 1.73 m2 :43 Pulse 76 /min Comments: Pattern: Regular Respiration Rate 18 /min Comments: Pattern: Unlabored O2 SAT 97 % Comments: Room air BP Systolic 142 mm[Hg] Comments: Patient Position: Sitting; Cuff Location: Left Arm; Cuff Size: Large BP Diastolic 82 mm[Hg] Comments: Patient Position: Sitting; Cuff Location: Left Arm; Cuff Size: Large Weight 156 lb Height 63 in Body Mass Index Calculated 27.63 kg/m2 Body Surface Area Calculated 1.74 m2 :37 Temperature 98 f Pulse 73 /min Comments: Pattern: Regular Respiration Rate 15 /min Comments: Pattern: Unlabored O2 SAT 97 % Comments: Room air BP Systolic 168 mm[Hg] Comments: Patient Position: Sitting; Cuff Location: Left Arm; Cuff Size: Standard BP Diastolic 92 mm[Hg] Comments: Patient Position: Sitting; Cuff Location: Left Arm; Cuff Size: Standard Weight 153.25 lb Height 63 in Body Mass Index Calculated 27.15 kg/m2 Body Surface Area Calculated 1.73 m2 :27 Temperature 97.7 f Pulse 91 /min Comments: Pattern: Regular Respiration Rate 15 /min Comments: Pattern: Unlabored O2 SAT 98 % Comments: Room air BP Systolic 138 mm[Hg] Comments: Patient Position: Sitting; Cuff Location: Left Arm; Cuff Size: Standard BP Diastolic 82 mm[Hg] Comments: Patient Position: Sitting; Cuff Location: Left Arm; Cuff Size: Standard Weight 159.25 lb Height 63 in Body Mass Index Calculated 28.21 kg/m2 Body Surface Area Calculated 1.76 m2 :57 Temperature 97.7 f Pulse 82 /min Comments: Pattern: Regular Respiration Rate 17 /min Comments: Pattern: Unlabored O2 SAT 98 % Comments: Room air BP Systolic 142 mm[Hg] Comments: Patient Position: Sitting; Cuff Location: Left Arm; Cuff Size: Standard BP Diastolic 86 mm[Hg] Comments: Patient Position: Sitting; Cuff Location: Left Arm; Cuff Size: Standard Weight 159.25 lb Height 63 in Body Mass Index Calculated 28.21 kg/m2 Body Surface Area Calculated 1.76 m2 :04 Temperature 97.2 f Comments: Method: Temporal Respiration Rate 16 /min Comments: Pattern: Unlabored O2 SAT 97 % Comments: Room air BP Systolic 122 mm[Hg] Comments: Patient Position: Sitting; Cuff Location: Left Arm; Cuff Size: Standard BP Diastolic 74 mm[Hg] Comments: Patient Position: Sitting; Cuff Location: Left Arm; Cuff Size: Standard Weight 156.25 lb Height 63 in Body Mass Index Calculated 27.68 kg/m2 Body Surface Area Calculated 1.74 m2 :35 Temperature 97.3 f Pulse 96 /min Comments: Pattern: Regular Respiration Rate 16 /min Comments: Pattern: Unlabored O2 SAT 97 % Comments: Room air BP Systolic 132 mm[Hg] Comments: Patient Position: Sitting; Cuff Location: Left Arm; Cuff Size: Standard BP Diastolic 80 mm[Hg] Comments: Patient Position: Sitting; Cuff Location: Left Arm; Cuff Size: Standard Weight 156.25 lb Height 63 in Body Mass Index Calculated 27.68 kg/m2 Body Surface Area Calculated 1.74 m2 :41 Temperature 97.4 f Comments: Method: Tympanic Pulse 101 /min Comments: Pattern: Regular Respiration Rate 18 /min Comments: Pattern: Unlabored O2 SAT 98 % Comments: Room air BP Systolic 160 mm[Hg] Comments: Patient Position: Sitting; Cuff Location: Left Arm; Cuff Size: Standard BP Diastolic 82 mm[Hg] Comments: Patient Position: Sitting; Cuff Location: Left Arm; Cuff Size: Standard Weight 156.25 lb Height 63 in Body Mass Index Calculated 27.68 kg/m2 Body Surface Area Calculated 1.74 m2 :31 Pulse 84 /min Comments: Pattern: Regular Respiration Rate 18 /min Comments: Pattern: Unlabored O2 SAT 96 % Comments: Room air BP Systolic 144 mm[Hg] Comments: Patient Position: Sitting; Cuff Location: Left Arm; Cuff Size: Large BP Diastolic 82 mm[Hg] Comments: Patient Position: Sitting; Cuff Location: Left Arm; Cuff Size: Large Weight 156.25 lb Height 63 in Body Mass Index Calculated 27.68 kg/m2 Body Surface Area Calculated 1.74 m2 :13 Pulse 76 /min Comments: Pattern: Regular Respiration Rate 18 /min Comments: Pattern: Unlabored O2 SAT 98 % Comments: Room air BP Systolic 128 mm[Hg] Comments: Patient Position: Sitting; Cuff Location: Left Arm; Cuff Size: Large BP Diastolic 80 mm[Hg] Comments: Patient Position: Sitting; Cuff Location: Left Arm; Cuff Size: Large Weight 154.375 lb Height 63 in Body Mass Index Calculated 27.35 kg/m2 Body Surface Area Calculated 1.73 m2 :30 Pulse 81 /min Comments: Pattern: Regular Respiration Rate 18 /min Comments: Pattern: Unlabored O2 SAT 95 % Comments: Room air BP Systolic 130 mm[Hg] Comments: Patient Position: Sitting; Cuff Location: Left Arm; Cuff Size: Large BP Diastolic 80 mm[Hg] Comments: Patient Position: Sitting; Cuff Location: Left Arm; Cuff Size: Large Weight 154.375 lb Height 63 in Body Mass Index Calculated 27.35 kg/m2 Body Surface Area Calculated 1.73 m2 :16 Pulse 65 /min Comments: Pattern: Regular Respiration Rate 18 /min Comments: Pattern: Unlabored O2 SAT 98 % Comments: Room air BP Systolic 122 mm[Hg] Comments: Patient Position: Sitting; Cuff Location: Left Arm; Cuff Size: Large BP Diastolic 82 mm[Hg] Comments: Patient Position: Sitting; Cuff Location: Left Arm; Cuff Size: Large Weight 147.5 lb Height 63 in Body Mass Index Calculated 26.13 kg/m2 Body Surface Area Calculated 1.7 m2 :48 Pulse 72 /min Comments: Pattern: Regular Respiration Rate 16 /min Comments: Pattern: Unlabored O2 SAT 98 % Comments: Room air BP Systolic 124 mm[Hg] Comments: Patient Position: Sitting; Cuff Location: Left Arm; Cuff Size: Standard BP Diastolic 76 mm[Hg] Comments: Patient Position: Sitting; Cuff Location: Left Arm; Cuff Size: Standard Weight 146 lb Height 63 in Body Mass Index Calculated 25.86 kg/m2 Body Surface Area Calculated 1.69 m2 :50 Temperature 97.8 f Comments: Method: Tympanic Pulse 68 /min Comments: Pattern: Regular Respiration Rate 18 /min Comments: Pattern: Unlabored O2 SAT 98 % Comments: Room air BP Systolic 122 mm[Hg] Comments: Patient Position: Sitting; Cuff Location: Left Arm; Cuff Size: Standard BP Diastolic 64 mm[Hg] Comments: Patient Position: Sitting; Cuff Location: Left Arm; Cuff Size: Standard Weight 147 lb Height 63 in Body Mass Index Calculated 26.04 kg/m2 Body Surface Area Calculated 1.7 m2 :42 Pulse 78 /min Comments: Pattern: Regular Respiration Rate 20 /min Comments: Pattern: Unlabored O2 SAT 96 % Comments: Room air BP Systolic 138 mm[Hg] Comments: Patient Position: Sitting; Cuff Location: Left Arm; Cuff Size: Large BP Diastolic 82 mm[Hg] Comments: Patient Position: Sitting; Cuff Location: Left Arm; Cuff Size: Large Weight 150 lb Height 63 in Body Mass Index Calculated 26.57 kg/m2 Body Surface Area Calculated 1.71 m2 :14 Temperature 97.1 f Comments: Method: Oral Pulse 74 /min Comments: Pattern: Regular Respiration Rate 15 /min O2 SAT 98 % Comments: Room air BP Systolic 132 mm[Hg] Comments: Patient Position: Sitting; Cuff Location: Left Arm; Cuff Size: Standard BP Diastolic 80 mm[Hg] Comments: Patient Position: Sitting; Cuff Location: Left Arm; Cuff Size: Standard Weight 150.25 lb Height 63 in Body Mass Index Calculated 26.62 kg/m2 Body Surface Area Calculated 1.71 m2 :29 Temperature 97.7 f Pulse 84 /min Comments: Pattern: Regular Respiration Rate 16 /min Comments: Pattern: Unlabored O2 SAT 98 % Comments: Room air BP Systolic 122 mm[Hg] Comments: Patient Position: Sitting; Cuff Location: Left Arm; Cuff Size: Standard BP Diastolic 82 mm[Hg] Comments: Patient Position: Sitting; Cuff Location: Left Arm; Cuff Size: Standard Weight 150.25 lb Height 63 in Body Mass Index Calculated 26.62 kg/m2 Body Surface Area Calculated 1.71 m2 :40 Temperature 97 f Comments: Method: Oral Pulse 83 /min Comments: Pattern: Regular Respiration Rate 18 /min Comments: Pattern: Unlabored O2 SAT 98 % Comments: Room air BP Systolic 148 mm[Hg] Comments: Patient Position: Sitting; Cuff Location: Left Arm; Cuff Size: Large BP Diastolic 80 mm[Hg] Comments: Patient Position: Sitting; Cuff Location: Left Arm; Cuff Size: Large Weight 154 lb Height 63 in Body Mass Index Calculated 27.28 kg/m2 Body Surface Area Calculated 1.73 m2 :25 Comments: has been taking decongestants and not been getting any sleep Temperature 97.9 f Comments: Method: Temporal Pulse 94 /min Comments: Pattern: Regular Respiration Rate 20 /min Comments: Pattern: Unlabored O2 SAT 98 % Comments: Room air BP Systolic 164 mm[Hg] Comments: Patient Position: Sitting; Cuff Location: Left Arm; Cuff Size: Standard BP Diastolic 90 mm[Hg] Comments: Patient Position: Sitting; Cuff Location: Left Arm; Cuff Size: Standard Weight 154 lb Height 63 in Body Mass Index Calculated 27.28 kg/m2 Body Surface Area Calculated 1.73 m2 :19 Temperature 97.8 f Comments: Method: Temporal Pulse 101 /min Comments: Pattern: Regular Respiration Rate 18 /min Comments: Pattern: Unlabored O2 SAT 97 % Comments: Room air BP Systolic 122 mm[Hg] Comments: Patient Position: Sitting; Cuff Location: Left Arm; Cuff Size: Large BP Diastolic 84 mm[Hg] Comments: Patient Position: Sitting; Cuff Location: Left Arm; Cuff Size: Large Weight 154.3125 lb Height 63 in Body Mass Index Calculated 27.33 kg/m2 Body Surface Area Calculated 1.73 m2 :11 Pulse 72 /min Comments: Pattern: Regular Respiration Rate 20 /min Comments: Pattern: Unlabored O2 SAT 98 % Comments: Room air BP Systolic 142 mm[Hg] Comments: Patient Position: Sitting; Cuff Location: Left Arm; Cuff Size: Large BP Diastolic 98 mm[Hg] Comments: Patient Position: Sitting; Cuff Location: Left Arm; Cuff Size: Large Weight 154.3125 lb Height 63 in Body Mass Index Calculated 27.33 kg/m2 Body Surface Area Calculated 1.73 m2 :17 Temperature 97.2 f Comments: Method: Temporal Pulse 94 /min Comments: Pattern: Regular Respiration Rate 18 /min Comments: Pattern: Unlabored O2 SAT 97 % Comments: Room air BP Systolic 138 mm[Hg] Comments: Patient Position: Sitting; Cuff Location: Left Arm; Cuff Size: Standard BP Diastolic 82 mm[Hg] Comments: Patient Position: Sitting; Cuff Location: Left Arm; Cuff Size: Standard Weight 154.375 lb Height 63 in Body Mass Index Calculated 27.35 kg/m2 Body Surface Area Calculated 1.73 m2 :15 Temperature 97.7 f Comments: Method: Oral Pulse 104 /min Comments: Pattern: Regular Respiration Rate 16 /min O2 SAT 98 % Comments: Room air BP Systolic 150 mm[Hg] Comments: Patient Position: Sitting; Cuff Location: Left Arm; Cuff Size: Standard BP Diastolic 90 mm[Hg] Comments: Patient Position: Sitting; Cuff Location: Left Arm; Cuff Size: Standard Weight 154.375 lb Height 63 in Body Mass Index Calculated 27.35 kg/m2 Body Surface Area Calculated 1.73 m2 :45 Comments: eye doc DR. Key had glaucoma testhearing ok Pulse 63 /min Comments: Pattern: Regular Respiration Rate 20 /min Comments: Pattern: Unlabored O2 SAT 98 % Comments: Room air BP Systolic 142 mm[Hg] Comments: Patient Position: Sitting; Cuff Location: Left Arm; Cuff Size: Large BP Diastolic 90 mm[Hg] Comments: Patient Position: Sitting; Cuff Location: Left Arm; Cuff Size: Large Weight 154.375 lb Height 63 in Body Mass Index Calculated 27.35 kg/m2 Body Surface Area Calculated 1.73 m2 [id number] Pulse 66 /min Comments: Pattern: Regular Respiration Rate 20 /min Comments: Pattern: Unlabored O2 SAT 98 % Comments: Room air BP Systolic 142 mm[Hg] Comments: Patient Position: Sitting; Cuff Location: Left Arm; Cuff Size: Large BP Diastolic 76 mm[Hg] Comments: Patient Position: Sitting; Cuff Location: Left Arm; Cuff Size: Large Weight 154.375 lb Height 63 in Body Mass Index Calculated 27.35 kg/m2 Body Surface Area Calculated 1.73 m2 :13 Comments: pt very nervous about findings nad its confusing and she is hoping she doesnt have to have surgery agian Pulse 52 /min Comments: Pattern: Regular Respiration Rate 20 /min Comments: Pattern: Unlabored O2 SAT 98 % Comments: Room air BP Systolic 158 mm[Hg] Comments: Patient Position: Sitting; Cuff Location: Left Arm; Cuff Size: Standard BP Diastolic 92 mm[Hg] Comments: Patient Position: Sitting; Cuff Location: Left Arm; Cuff Size: Standard Weight 0.3125 lb Height 63 in Body Mass Index Calculated 0.06 kg/m2 Body Surface Area Calculated 0.12 m2 :02 Temperature 97.4 f Comments: Method: Oral Pulse 72 /min Comments: Pattern: Regular Respiration Rate 16 /min O2 SAT 98 % Comments: Room air BP Systolic 136 mm[Hg] Comments: Patient Position: Sitting BP Diastolic 82 mm[Hg] Comments: Patient Position: Sitting :12 Pulse 91 /min Comments: Pattern: Regular Respiration Rate 18 /min Comments: Pattern: Unlabored O2 SAT 97 % Comments: Room air BP Systolic 142 mm[Hg] Comments: Patient Position: Sitting; Cuff Location: Left Arm; Cuff Size: Large BP Diastolic 80 mm[Hg] Comments: Patient Position: Sitting; Cuff Location: Left Arm; Cuff Size: Large Weight 152.3125 lb Height 63 in Body Mass Index Calculated 26.98 kg/m2 Body Surface Area Calculated 1.72 m2 :59 Temperature 98.3 f Comments: Method: Oral Pulse 77 /min Comments: Pattern: Regular Respiration Rate 20 /min Comments: Pattern: Unlabored O2 SAT 97 % Comments: Room air BP Systolic 146 mm[Hg] Comments: Patient Position: Sitting; Cuff Location: Left Arm; Cuff Size: Standard BP Diastolic 82 mm[Hg] Comments: Patient Position: Sitting; Cuff Location: Left Arm; Cuff Size: Standard Weight 153.5 lb Height 63 in Body Mass Index Calculated 27.19 kg/m2 Body Surface Area Calculated 1.73 m2 [id number] Pulse 93 /min Comments: Pattern: Regular Respiration Rate 20 /min Comments: Pattern: Unlabored O2 SAT 98 % Comments: Room air BP Systolic 128 mm[Hg] Comments: Patient Position: Sitting; Cuff Location: Left Arm; Cuff Size: Large BP Diastolic 80 mm[Hg] Comments: Patient Position: Sitting; Cuff Location: Left Arm; Cuff Size: Large Weight 153.5 lb Height 63 in Body Mass Index Calculated 27.19 kg/m2 Body Surface Area Calculated 1.73 m2 :59 Pulse 75 /min Comments: Pattern: Regular Respiration Rate 20 /min Comments: Pattern: Unlabored O2 SAT 97 % Comments: Room air BP Systolic 120 mm[Hg] Comments: Patient Position: Sitting; Cuff Location: Left Arm; Cuff Size: Large BP Diastolic 82 mm[Hg] Comments: Patient Position: Sitting; Cuff Location: Left Arm; Cuff Size: Large Weight 157.0625 lb Height 63 in Body Mass Index Calculated 27.82 kg/m2 Body Surface Area Calculated 1.75 m2 [id number] Temperature 97 f Comments: Method: Temporal Pulse 94 /min Comments: Pattern: Regular Respiration Rate 16 /min Comments: Pattern: Unlabored O2 SAT 96 % Comments: Room air BP Systolic 128 mm[Hg] Comments: Patient Position: Sitting; Cuff Location: Left Arm; Cuff Size: Standard BP Diastolic 80 mm[Hg] Comments: Patient Position: Sitting; Cuff Location: Left Arm; Cuff Size: Standard Weight 157.0625 lb Height 63 in Body Mass Index Calculated 27.82 kg/m2 Body Surface Area Calculated 1.75 m2 [id number] Pulse 72 /min Comments: Pattern: Regular Respiration Rate 18 /min Comments: Pattern: Unlabored O2 SAT 98 % Comments: Room air BP Systolic 128 mm[Hg] Comments: Patient Position: Sitting; Cuff Location: Left Arm; Cuff Size: Large BP Diastolic 64 mm[Hg] Comments: Patient Position: Sitting; Cuff Location: Left Arm; Cuff Size: Large Weight 153.0625 lb Height 63 in Body Mass Index Calculated 27.11 kg/m2 Body Surface Area Calculated 1.73 m2 :15 Temperature 97.9 f Comments: Method: Oral Pulse 74 /min Comments: Pattern: Regular Respiration Rate 15 /min O2 SAT 98 % Comments: Room air BP Systolic 148 mm[Hg] Comments: Patient Position: Sitting; Cuff Location: Left Arm; Cuff Size: Standard BP Diastolic 86 mm[Hg] Comments: Patient Position: Sitting; Cuff Location: Left Arm; Cuff Size: Standard Weight 150 lb Height 63 in Body Mass Index Calculated 26.57 kg/m2 Body Surface Area Calculated 1.71 m2 :16 Temperature 97.6 f Comments: Method: Oral Pulse 70 /min Comments: Pattern: Regular Respiration Rate 16 /min Comments: Pattern: Unlabored O2 SAT 98 % Comments: Room air BP Systolic 136 mm[Hg] Comments: Patient Position: Sitting; Cuff Location: Left Arm; Cuff Size: Standard BP Diastolic 80 mm[Hg] Comments: Patient Position: Sitting; Cuff Location: Left Arm; Cuff Size: Standard Weight 150 lb Height 63 in Body Mass Index Calculated 26.57 kg/m2 Body Surface Area Calculated 1.71 m2 :14 Temperature 97.6 f Comments: Method: Oral Pulse 75 /min Comments: Pattern: Regular Respiration Rate 20 /min Comments: Pattern: Unlabored O2 SAT 98 % Comments: Room air BP Systolic 122 mm[Hg] Comments: Patient Position: Sitting; Cuff Location: Left Arm; Cuff Size: Standard BP Diastolic 62 mm[Hg] Comments: Patient Position: Sitting; Cuff Location: Left Arm; Cuff Size: Standard Weight 150 lb Height 63 in Body Mass Index Calculated 26.57 kg/m2 Body Surface Area Calculated 1.71 m2 :18 Pulse 68 /min Comments: Pattern: Regular Respiration Rate 20 /min Comments: Pattern: Unlabored O2 SAT 97 % Comments: Room air BP Systolic 130 mm[Hg] Comments: Patient Position: Sitting; Cuff Location: Left Arm; Cuff Size: Large BP Diastolic 70 mm[Hg] Comments: Patient Position: Sitting; Cuff Location: Left Arm; Cuff Size: Large Weight 147.25 lb Height 63 in Body Mass Index Calculated 26.08 kg/m2 Body Surface Area Calculated 1.7 m2 :25 Temperature 97.8 f Comments: Method: Oral Pulse 64 /min Comments: Pattern: Regular Respiration Rate 20 /min Comments: Pattern: Unlabored BP Systolic 140 mm[Hg] Comments: Patient Position: Sitting; Cuff Location: Left Arm; Cuff Size: Large BP Diastolic 80 mm[Hg] Comments: Patient Position: Sitting; Cuff Location: Left Arm; Cuff Size: Large Weight 154.4375 lb Height 63 in Body Mass Index Calculated 27.36 kg/m2 Body Surface Area Calculated 1.73 m2 :31 Temperature 97.7 f Comments: Method: Oral Pulse 64 /min Comments: Pattern: Regular Respiration Rate 20 /min Comments: Pattern: Unlabored BP Systolic 120 mm[Hg] Comments: Patient Position: Sitting; Cuff Location: Left Arm; Cuff Size: Large BP Diastolic 84 mm[Hg] Comments: Patient Position: Sitting; Cuff Location: Left Arm; Cuff Size: Large Weight 154.4375 lb Height 63 in Body Mass Index Calculated 27.36 kg/m2 Body Surface Area Calculated 1.73 m2 :40 Temperature 96.7 f Comments: Method: Oral Pulse 70 /min Comments: Pattern: Regular Respiration Rate 16 /min Comments: Pattern: Unlabored BP Systolic 130 mm[Hg] Comments: Patient Position: Sitting; Cuff Location: Left Arm; Cuff Size: Large BP Diastolic 84 mm[Hg] Comments: Patient Position: Sitting; Cuff Location: Left Arm; Cuff Size: Large Weight 156.375 lb Height 63 in Body Mass Index Calculated 27.7 kg/m2 Body Surface Area Calculated 1.74 m2 :23 Temperature 97.6 f Comments: Method: Oral Pulse 72 /min Comments: Pattern: Regular Respiration Rate 20 /min Comments: Pattern: Unlabored BP Systolic 122 mm[Hg] Comments: Patient Position: Sitting; Cuff Location: Left Arm; Cuff Size: Large BP Diastolic 78 mm[Hg] Comments: Patient Position: Sitting; Cuff Location: Left Arm; Cuff Size: Large Weight 155.1875 lb Height 63 in Body Mass Index Calculated 27.49 kg/m2 Body Surface Area Calculated 1.74 m2 :32 Temperature 97.6 f Comments: Method: Oral Pulse 76 /min Comments: Pattern: Regular Respiration Rate 20 /min Comments: Pattern: Unlabored BP Systolic 122 mm[Hg] Comments: Patient Position: Sitting; Cuff Location: Left Arm; Cuff Size: Large BP Diastolic 88 mm[Hg] Comments: Patient Position: Sitting; Cuff Location: Left Arm; Cuff Size: Large Weight 155.5 lb Height 63 in Body Mass Index Calculated 27.55 kg/m2 Body Surface Area Calculated 1.74 m2 4-Ruy-122560:49 Temperature 100.5 f Comments: Method: Oral Pulse 80 /min Comments: Pattern: Regular Respiration Rate 20 /min Comments: Pattern: Unlabored O2 SAT 94 % Comments: Room air BP Systolic 134 mm[Hg] Comments: Patient Position: Sitting; Cuff Location: Left Arm; Cuff Size: Large BP Diastolic 80 mm[Hg] Comments: Patient Position: Sitting; Cuff Location: Left Arm; Cuff Size: Large Weight 154.5 lb Height 63 in Body Mass Index Calculated 27.37 kg/m2 Body Surface Area Calculated 1.73 m2 :19 Temperature 98 f Comments: Method: Oral Pulse 76 /min Comments: Pattern: Regular Respiration Rate 16 /min Comments: Pattern: Unlabored BP Systolic 122 mm[Hg] Comments: Patient Position: Sitting; Cuff Location: Left Arm; Cuff Size: Standard BP Diastolic 74 mm[Hg] Comments: Patient Position: Sitting; Cuff Location: Left Arm; Cuff Size: Standard Weight 154.5 lb Height 63 in Body Mass Index Calculated 27.37 kg/m2 Body Surface Area Calculated 1.73 m2 :38 Temperature 98.7 f Comments: Method: Oral Pulse 72 /min Comments: Pattern: Regular Respiration Rate 16 /min Comments: Pattern: Unlabored BP Systolic 132 mm[Hg] Comments: Patient Position: Sitting; Cuff Location: Left Arm; Cuff Size: Standard BP Diastolic 80 mm[Hg] Comments: Patient Position: Sitting; Cuff Location: Left Arm; Cuff Size: Standard Weight 154.5 lb Height 63 in Body Mass Index Calculated 27.37 kg/m2 Body Surface Area Calculated 1.73 m2 :57 Temperature 98.2 f Comments: Method: Oral Pulse 68 /min Comments: Pattern: Regular Respiration Rate 16 /min Comments: Pattern: Unlabored BP Systolic 122 mm[Hg] Comments: Patient Position: Sitting; Cuff Location: Left Arm; Cuff Size: Large BP Diastolic 70 mm[Hg] Comments: Patient Position: Sitting; Cuff Location: Left Arm; Cuff Size: Large Weight 154.5 lb Height 63 in Body Mass Index Calculated 27.37 kg/m2 Body Surface Area Calculated 1.73 m2 :39 Temperature 98.2 f Comments: Method: Oral Pulse 68 /min Comments: Pattern: Regular Respiration Rate 18 /min Comments: Pattern: Unlabored BP Systolic 120 mm[Hg] Comments: Patient Position: Sitting; Cuff Location: Left Arm; Cuff Size: Large BP Diastolic 80 mm[Hg] Comments: Patient Position: Sitting; Cuff Location: Left Arm; Cuff Size: Large Weight 154.5 lb Height 63 in Body Mass Index Calculated 27.37 kg/m2 Body Surface Area Calculated 1.73 m2 :13 Temperature 98.1 f Comments: Method: Oral Pulse 76 /min Comments: Pattern: Regular Respiration Rate 16 /min Comments: Pattern: Unlabored BP Systolic 110 mm[Hg] Comments: Patient Position: Sitting; Cuff Location: Left Arm; Cuff Size: Large BP Diastolic 72 mm[Hg] Comments: Patient Position: Sitting; Cuff Location: Left Arm; Cuff Size: Large Weight 156 lb Height 63 in Body Mass Index Calculated 27.63 kg/m2 Body Surface Area Calculated 1.74 m2 :43 Temperature 98.2 f Comments: Method: Oral Pulse 68 /min Comments: Pattern: Regular Respiration Rate 20 /min Comments: Pattern: Unlabored BP Systolic 122 mm[Hg] Comments: Patient Position: Sitting; Cuff Location: Left Arm; Cuff Size: Large BP Diastolic 78 mm[Hg] Comments: Patient Position: Sitting; Cuff Location: Left Arm; Cuff Size: Large Weight 157.1875 lb Height 63 in Body Mass Index Calculated 27.84 kg/m2 Body Surface Area Calculated 1.75 m2 :02 Temperature 97.2 f Comments: Method: Oral Pulse 68 /min Comments: Pattern: Regular Respiration Rate 20 /min Comments: Pattern: Unlabored BP Systolic 140 mm[Hg] Comments: Patient Position: Sitting; Cuff Location: Left Arm; Cuff Size: Large BP Diastolic 80 mm[Hg] Comments: Patient Position: Sitting; Cuff Location: Left Arm; Cuff Size: Large Weight 152.375 lb Height 63 in Body Mass Index Calculated 26.99 kg/m2 Body Surface Area Calculated 1.72 m2 :37 Temperature 97.9 f Comments: Method: Oral Pulse 76 /min Comments: Pattern: Regular Respiration Rate 20 /min Comments: Pattern: Unlabored BP Systolic 132 mm[Hg] Comments: Patient Position: Sitting; Cuff Location: Left Arm; Cuff Size: Large BP Diastolic 80 mm[Hg] Comments: Patient Position: Sitting; Cuff Location: Left Arm; Cuff Size: Large Weight 150.3125 lb Height 63 in Body Mass Index Calculated 26.63 kg/m2 Body Surface Area Calculated 1.71 m2 :17 Pulse 68 /min Comments: Pattern: Regular Respiration Rate 18 /min Comments: Pattern: Unlabored BP Systolic 138 mm[Hg] Comments: Patient Position: Sitting; Cuff Location: Left Arm; Cuff Size: Large BP Diastolic 84 mm[Hg] Comments: Patient Position: Sitting; Cuff Location: Left Arm; Cuff Size: Large Weight 158.125 lb Height 63 in Body Mass Index Calculated 28.01 kg/m2 Body Surface Area Calculated 1.75 m2 :58 Pulse 72 /min Comments: Pattern: Regular Respiration Rate 16 /min Comments: Pattern: Unlabored Weight 158.125 lb Height 63 in Body Mass Index Calculated 28.01 kg/m2 Body Surface Area Calculated 1.75 m2 :28 Temperature 79.7 f Comments: Method: Oral Pulse 72 /min Comments: Pattern: Regular Respiration Rate 16 /min Comments: Pattern: Unlabored BP Systolic 140 mm[Hg] Comments: Patient Position: Sitting; Cuff Location: Left Arm; Cuff Size: Standard BP Diastolic 82 mm[Hg] Comments: Patient Position: Sitting; Cuff Location: Left Arm; Cuff Size: Standard Weight 158.125 lb Height 63 in Body Mass Index Calculated 28.01 kg/m2 Body Surface Area Calculated 1.75 m2 :26 Temperature 97.4 f Comments: Method: Oral Pulse 70 /min Comments: Pattern: Regular Respiration Rate 15 /min Comments: Pattern: Unlabored BP Systolic 146 mm[Hg] Comments: Patient Position: Sitting; Cuff Location: Left Arm; Cuff Size: Standard BP Diastolic 84 mm[Hg] Comments: Patient Position: Sitting; Cuff Location: Left Arm; Cuff Size: Standard Weight 158.125 lb Height 63 in Body Mass Index Calculated 28.01 kg/m2 Body Surface Area Calculated 1.75 m2 :09 Temperature 97.1 f Comments: Method: Oral Pulse 64 /min Comments: Pattern: Regular Respiration Rate 16 /min Comments: Pattern: Unlabored BP Systolic 142 mm[Hg] Comments: Patient Position: Sitting; Cuff Location: Left Arm; Cuff Size: Standard BP Diastolic 88 mm[Hg] Comments: Patient Position: Sitting; Cuff Location: Left Arm; Cuff Size: Standard Weight 158.125 lb Height 63 in Body Mass Index Calculated 28.01 kg/m2 Body Surface Area Calculated 1.75 m2 :02 Temperature 98 f Comments: Method: Oral Pulse 72 /min Comments: Pattern: Regular Respiration Rate 20 /min Comments: Pattern: Unlabored BP Systolic 140 mm[Hg] Comments: Patient Position: Sitting; Cuff Location: Left Arm; Cuff Size: Large BP Diastolic 82 mm[Hg] Comments: Patient Position: Sitting; Cuff Location: Left Arm; Cuff Size: Large Weight 157.25 lb Height 63 in Body Mass Index Calculated 27.86 kg/m2 Body Surface Area Calculated 1.75 m2 :55 Temperature 96.9 f Comments: Method: Oral Pulse 60 /min Comments: Pattern: Regular Respiration Rate 18 /min Comments: Pattern: Unlabored BP Systolic 132 mm[Hg] Comments: Patient Position: Sitting; Cuff Location: Left Arm; Cuff Size: Standard BP Diastolic 80 mm[Hg] Comments: Patient Position: Sitting; Cuff Location: Left Arm; Cuff Size: Standard Weight 158.25 lb Height 63 in Body Mass Index Calculated 28.03 kg/m2 Body Surface Area Calculated 1.75 m2 :25 Pulse 68 /min Comments: Pattern: Regular Respiration Rate 20 /min Comments: Pattern: Unlabored BP Systolic 132 mm[Hg] Comments: Patient Position: Sitting; Cuff Location: Left Arm; Cuff Size: Large BP Diastolic 82 mm[Hg] Comments: Patient Position: Sitting; Cuff Location: Left Arm; Cuff Size: Large Weight 150.5625 lb Height 63 in Body Mass Index Calculated 26.67 kg/m2 Body Surface Area Calculated 1.71 m2 :09 Pulse 60 /min Comments: Pattern: Regular Respiration Rate 20 /min Comments: Pattern: Unlabored BP Systolic 138 mm[Hg] Comments: Patient Position: Sitting; Cuff Location: Left Arm; Cuff Size: Large BP Diastolic 84 mm[Hg] Comments: Patient Position: Sitting; Cuff Location: Left Arm; Cuff Size: Large Weight 150.5625 lb Height 63 in Body Mass Index Calculated 26.67 kg/m2 Body Surface Area Calculated 1.71 m2 :07 Pulse 60 /min Comments: Pattern: Regular Respiration Rate 20 /min Comments: Pattern: Unlabored BP Systolic 138 mm[Hg] Comments: Patient Position: Sitting; Cuff Location: Left Arm; Cuff Size: Large BP Diastolic 90 mm[Hg] Comments: Patient Position: Sitting; Cuff Location: Left Arm; Cuff Size: Large Weight 149.1875 lb Height 63 in Body Mass Index Calculated 26.43 kg/m2 Body Surface Area Calculated 1.71 m2 :19 Pulse 68 /min Comments: Pattern: Regular Respiration Rate 20 /min Comments: Pattern: Unlabored BP Systolic 118 mm[Hg] Comments: Patient Position: Sitting; Cuff Location: Left Arm; Cuff Size: Standard BP Diastolic 68 mm[Hg] Comments: Patient Position: Sitting; Cuff Location: Left Arm; Cuff Size: Standard Weight 149.4375 lb Height 63 in Body Mass Index Calculated 26.47 kg/m2 Body Surface Area Calculated 1.71 m2 Head Circumference 0.00 cm :52 Pulse 64 /min Comments: Pattern: Regular Respiration Rate 16 /min Comments: Pattern: Unlabored BP Systolic 140 mm[Hg] Comments: Patient Position: Sitting; Cuff Location: Right Arm; Cuff Size: Standard BP Diastolic 88 mm[Hg] Comments: Patient Position: Sitting; Cuff Location: Right Arm; Cuff Size: Standard Weight 149.4375 lb Height 63 in Body Mass Index Calculated 26.47 kg/m2 Body Surface Area Calculated 1.71 m2 Head Circumference 0.00 cm :43 Pulse 64 /min Comments: Pattern: Regular Respiration Rate 18 /min Comments: Pattern: Unlabored BP Systolic 128 mm[Hg] Comments: Patient Position: Sitting; Cuff Location: Left Arm; Cuff Size: Standard BP Diastolic 72 mm[Hg] Comments: Patient Position: Sitting; Cuff Location: Left Arm; Cuff Size: Standard Weight 149.375 lb Height 63 in Body Mass Index Calculated 26.46 kg/m2 Body Surface Area Calculated 1.71 m2 Head Circumference 0.00 cm :06 Pulse 64 /min Comments: Pattern: Regular Respiration Rate 20 /min Comments: Pattern: Unlabored BP Systolic 118 mm[Hg] Comments: Patient Position: Sitting; Cuff Location: Left Arm; Cuff Size: Standard BP Diastolic 68 mm[Hg] Comments: Patient Position: Sitting; Cuff Location: Left Arm; Cuff Size: Standard Weight 143.125 lb Height 63 in Body Mass Index Calculated 25.35 kg/m2 Body Surface Area Calculated 1.68 m2 Head Circumference 0.00 cm :09 Pulse 80 /min Comments: Pattern: Regular Respiration Rate 20 /min Comments: Pattern: Unlabored BP Systolic 132 mm[Hg] Comments: Patient Position: Sitting; Cuff Location: Left Arm; Cuff Size: Standard BP Diastolic 80 mm[Hg] Comments: Patient Position: Sitting; Cuff Location: Left Arm; Cuff Size: Standard Weight 143.125 lb Height 63 in Body Mass Index Calculated 25.35 kg/m2 Body Surface Area Calculated 1.68 m2 Head Circumference 0.00 cm :12 Temperature 98.9 f Comments: Method: Oral Pulse 96 /min Comments: Pattern: Regular Respiration Rate 16 /min Comments: Pattern: Undefined O2 SAT 94 % Comments: Room air BP Systolic 130 mm[Hg] Comments: Patient Position: Sitting; Cuff Location: Left Arm; Cuff Size: Standard BP Diastolic 86 mm[Hg] Comments: Patient Position: Sitting; Cuff Location: Left Arm; Cuff Size: Standard Weight 0 lb Height 0 in Head Circumference 0.00 cm :40 Pulse 80 /min Comments: Pattern: Regular Respiration Rate 20 /min Comments: Pattern: Unlabored BP Systolic 120 mm[Hg] Comments: Patient Position: Sitting; Cuff Location: Right Arm; Cuff Size: Standard BP Diastolic 82 mm[Hg] Comments: Patient Position: Sitting; Cuff Location: Right Arm; Cuff Size: Standard Weight 148.1875 lb Height 63 in Body Mass Index Calculated 26.25 kg/m2 Body Surface Area Calculated 1.7 m2 Head Circumference 0.00 cm :25 Pulse 72 /min Comments: Pattern: Regular Respiration Rate 20 /min Comments: Pattern: Unlabored BP Systolic 118 mm[Hg] Comments: Patient Position: Sitting; Cuff Location: Left Arm; Cuff Size: Standard BP Diastolic 68 mm[Hg] Comments: Patient Position: Sitting; Cuff Location: Left Arm; Cuff Size: Standard Weight 148.1875 lb Height 63 in Body Mass Index Calculated 26.25 kg/m2 Body Surface Area Calculated 1.7 m2 Head Circumference 0.00 cm :38 Pulse 64 /min Comments: Pattern: Regular Respiration Rate 16 /min Comments: Pattern: Unlabored BP Systolic 122 mm[Hg] Comments: Patient Position: Sitting; Cuff Location: Left Arm; Cuff Size: Standard BP Diastolic 78 mm[Hg] Comments: Patient Position: Sitting; Cuff Location: Left Arm; Cuff Size: Standard Weight 148.1875 lb Height 63 in Body Mass Index Calculated 26.25 kg/m2 Body Surface Area Calculated 1.7 m2 Head Circumference 0.00 cm :48 Temperature 98.1 f Comments: Method: Oral Pulse 68 /min Comments: Pattern: Regular Respiration Rate 16 /min Comments: Pattern: Unlabored BP Systolic 110 mm[Hg] Comments: Patient Position: Sitting; Cuff Location: Left Arm; Cuff Size: Standard BP Diastolic 70 mm[Hg] Comments: Patient Position: Sitting; Cuff Location: Left Arm; Cuff Size: Standard Weight 0 lb Height 0 in Head Circumference 0.00 cm :20 Temperature 98.2 f Comments: Method: Oral Pulse 76 /min Comments: Pattern: Regular BP Systolic 134 mm[Hg] Comments: Patient Position: Sitting; Cuff Location: Right Arm; Cuff Size: Standard BP Diastolic 90 mm[Hg] Comments: Patient Position: Sitting; Cuff Location: Right Arm; Cuff Size: Standard Weight 0 lb Height 0 in Head Circumference 0.00 cm :53 Temperature 97.7 f Comments: Method: Oral Pulse 64 /min Comments: Pattern: Regular Respiration Rate 16 /min Comments: Pattern: Unlabored BP Systolic 124 mm[Hg] Comments: Patient Position: Sitting; Cuff Location: Left Arm; Cuff Size: Standard BP Diastolic 78 mm[Hg] Comments: Patient Position: Sitting; Cuff Location: Left Arm; Cuff Size: Standard Weight 146.25 lb Height 63 in Body Mass Index Calculated 25.91 kg/m2 Body Surface Area Calculated 1.69 m2 Head Circumference 0.00 cm :26 Temperature 98.9 f Comments: Method: Oral Pulse 72 /min Comments: Pattern: Regular Respiration Rate 16 /min Comments: Pattern: Unlabored BP Systolic 118 mm[Hg] Comments: Patient Position: Sitting; Cuff Location: Left Arm; Cuff Size: Standard BP Diastolic 62 mm[Hg] Comments: Patient Position: Sitting; Cuff Location: Left Arm; Cuff Size: Standard Weight 142.3125 lb Height 63 in Body Mass Index Calculated 25.21 kg/m2 Body Surface Area Calculated 1.67 m2 Head Circumference 0.00 cm :49 Temperature 98.5 f Comments: Method: Oral Pulse 72 /min Comments: Pattern: Regular Respiration Rate 16 /min Comments: Pattern: Unlabored BP Systolic 106 mm[Hg] Comments: Patient Position: Sitting; Cuff Location: Left Arm; Cuff Size: Standard BP Diastolic 70 mm[Hg] Comments: Patient Position: Sitting; Cuff Location: Left Arm; Cuff Size: Standard Weight 143 lb Height 0 in Head Circumference 0.00 cm :25 Temperature 98.4 f Comments: Method: Oral Pulse 70 /min Comments: Pattern: Regular Respiration Rate 16 /min Comments: Pattern: Undefined O2 SAT 96 % Comments: Room air BP Systolic 104 mm[Hg] Comments: Patient Position: Sitting; Cuff Location: Left Arm; Cuff Size: Standard BP Diastolic 80 mm[Hg] Comments: Patient Position: Sitting; Cuff Location: Left Arm; Cuff Size: Standard Weight 142 lb Height 63 in Body Mass Index Calculated 25.15 kg/m2 Body Surface Area Calculated 1.67 m2 Head Circumference 0.00 cm Results Date Description Value Details :59 HgA1C , Office (93839) HgA1C , Office 5.9 % (Normal) Range: 4.6 - 7.1 :59 Blood Glucose , Office (44555) Blood Glucose , Office 99 (Normal) :14 OVA & PARASITE DIR SMEAR Comments: PATIENT NOT FASTINGPERFORMED BY: [facility] [id number] ([id number]) Result 1 NOCP (Normal) Comments: No ova, cysts, or parasites seen. Ova + Parasite Exam Final report (Normal) Comments: These results were obtained using wet preparation(s) and trichromestained smear. This test does not include testing for Cryptosporidiumparvum, Cyclospora, or Microsporidia. :14 OCCULT BLOOD FECES SCREEN Comments: PATIENT NOT FASTINGPERFORMED BY: [facility] [id number] ([id number]) Occult Blood, Fecal, IA Negative (Normal) :14 LEUKOCYTE COUNT, FECAL (84364) Comments: PATIENT NOT FASTINGPERFORMED BY: [facility] [id number] Result 1 NWBC (Normal) Comments: No white blood cells seen. White Blood Cells (WBC), Final report (Normal) Stool :12 C-DIFFICILE, STOOL (80926) Comments: PATIENT NOT FASTINGPERFORMED BY: [facility] [id number] Information: SRC:ST C difficile Toxins A+B, EIA Negative (Normal) 01-May-20189:14 ENRIQUE CULTURE-STOOL (25824) Comments: PATIENT NOT FASTINGPERFORMED BY: [facility] [place] [id number] [facility] [id number] E coli Shiga Toxin EIA Negative (Normal) Result 1 NCI (Normal) Comments: No Campylobacter species isolated. Campylobacter Culture Final report (Normal) Result 1 NSS (Normal) Comments: No Salmonella or Shigella recovered. Salmonella/Shigella Screen Final report (Normal) 48-Vyl-172890:03 T4, FREE (THYROXINE) Comments: PATIENT WAS FASTINGPERFORMED BY: [place] [id number] BY: [place] 2913770 [facility] [id number] (12427) T4,Free(Direct) 1.28 ng/dL (Normal) Range: 0.82-1.77 61-Hjx-183886:03 T3, FREE (TRIDOTHYRONINE) Comments: PATIENT WAS FASTINGPERFORMED BY: [address] [id number] BY: [address] [id number] (94114) Triiodothyronine (T3), Free 3.2 pg/mL (Normal) Range: 2.0-4.4 49-Phk-861267:03 TSH (THYROID STIMULATING Comments: PATIENT WAS FASTINGPERFORMED BY: [address] [id number] BY: [address] [id number] HORMONE) (05217) TSH 1.420 {uIU/mL} (Normal) Range: 0.450-4.500 44-Urq-040717:03 LIPOPROTEIN, BLD, BY NMR Comments: PATIENT WAS FASTINGPERFORMED BY: [address] [id number] BY: [address] [place] [id number] ([id number]) LP-IR Score 74 (Abnormal) Comments: INSULIN RESISTANCE MARKER <--Insulin Sensitive Insulin Resistant--> Percentile in Reference PopulationInsulin Resistance ScoreLP-IR Score Low 25th 50th 75th High <27 27 45 63 >63LP-IR Score is inaccurate if patient is non-fasting. .The LP-IR score is a laboratory developed i [facility] that has beenassociated with insulin resistance and diabetes risk and should beused as one component of a physician's clinical assessment. TheLP-IR score listed above has not been cleared by the [place] Food andDrug Administration. LDL Size 19.9 nm (Normal) Comments: INTERPRETATIVE INFORMATION PARTICLE CONCENTRATION AND SIZE <--Lower CVD Risk Highe r CVD Risk--> LDL AND HDL PARTICLES Percentile in Reference Population HDL-P (total) High 75th 50th 25th Low >34.9 34.9 30.5 26.7 <26.7 . Small LDL-P Low 25th 50th 75th High <117 117 527 839 >839 . LDL Size <-Large (Pattern A)-> <-Small (Pattern B)-> 23.0 20.6 20.5 19.0 Small LDL-P and LDL Size are associated with CVD risk, but not afterLDL-P is taken into account. .These assays were developed and their performance characteristicsdetermined by [employer]. These assays have not been cleared by [place] Food and Drug Administration. The clinical utility of theselaboratory values have not been fully established. Small LDL-P 1405 nmol/L (Abnormal) HDL-P (Total) 30.1 umol/L (Abnormal) Cholesterol, Total 255 mg/dL (Abnormal) Range: 100-199 Triglycerides 233 mg/dL (Abnormal) Range: 0-149 HDL-C 45 mg/dL (Normal) LDL-C 163 mg/dL (Abnormal) Range: 0-99 Comments: . Optimal < 100 Above optimal 100 - 129 Borderline 1 30 - 159 High 160 - 189 Very high > 189 .LDL-C is inaccurate if patient is non-fasting. LDL-P 2041 nmol/L (Abnormal) Comments: Low < 1000 Moderate 1000 - 1299 Borderline-High 1300 - 1599 High 1600 - 2000 Very High > 2000 13-Axc-924722:03 MICROALBUMIN: CREATININE Comments: PATIENT WAS FASTINGPERFORMED BY: [facility] [address] [id number] BY: KILTR [facility] [id number] RATIO (19908) AND (12136) Alb/Creat Ratio 12.4 {mg/g_creat} (Normal) Range: 0.0-30.0 Comments: Normal: 0.0 - 30.0 Albuminuria: 31.0 - 300.0 Clinical albuminuria: >300.0 Albumin, Urine 6.2 ug/mL (Normal) Creatinine, Urine 49.9 mg/dL (Normal) 84-Qhr-97795:02 HgA1C , Office (94981) HgA1C , Office 6.1 % (Normal) Range: 4.6 - 7.1 12-Wkq-41863:10 Microscopic Examination Comments: PATIENT WAS FASTINGPERFORMED BY: [employer] [id number] BY: YUPPTVGuadalupe County HospitalCiemlq8932 [facility] [id number] Bacteria Few (Normal) Mucus Threads Present (Normal) Epithelial Cells (non renal) 0-10 {/hpf} (Normal) Range: 0 - 10 RBC 0-2 {/hpf} (Normal) Range: 0 - 2 WBC 6-10 {/hpf} (Abnormal) Range: 0 - 5 :10 T4, FREE (THYROXINE) Comments: PATIENT WAS FASTINGPERFORMED BY: sCoolTV[address] [id number] BY: [employer]TV Xtenqp0701 [facility] [id number] (84854) T4,Free(Direct) 1.28 ng/dL (Normal) Range: 0.82-1.77 :10 T3, FREE (TRIDOTHYRONINE) Comments: PATIENT WAS FASTINGPERFORMED BY: [employer] [id number] BY: [facility] RoadDublin [place] [id number] (53527) Triiodothyronine (T3), Free 4.0 pg/mL (Normal) Range: 2.0-4.4 :10 CALCIFIDIOL (65971) VIT D Comments: PATIENT WAS FASTINGPERFORMED BY: [employer]ethis[address] [id number] BY: TethisCedar County Memorial HospitalGwekjd1011 [facility] For ChildrenDublin [place] [id number] Vitamin D, 25-Hydroxy 37.9 ng/mL (Normal) Range: 30.0-100.0 Comments: Vitamin D deficiency has been defined by the [place] ofMedicine and an Endocrine Society practice guideline as alevel of serum 25-OH vitamin D less than 20 ng/mL (1,2).The Endocrine Society went on to further define vitamin Dinsufficiency as a level between 21 and 29 ng/mL (2).1. IOM ([place] of Medicine). 2010. Dietary reference intakes for calcium and D. [place]: The National Academies Press.2. Deepak MF, Angelito NC, Adan YEBOAH, et al. Evaluation, treatment, and prevention of vitamin D deficiency: an Endocrine Society clinical practice guideline. JCEM. 2010; 96(7):1911-30. :10 TSH (27687) Comments: PATIENT WAS FASTINGPERFORMED BY: [employer]eth[employer] [id number] BY: [facility] Hospitallin6[address] RoadDublin [place] [id number] TSH 2.010 {uIU/mL} (Normal) Range: 0.450-4.500 40-Nvh-70355:10 URINALYSIS, W/ MICRO Comments: PATIENT WAS FASTINGPERFORMED BY: sCoolTV[address] [id number] BY: sCoolTVEast Mountain HospitalVxobyg5160 [facility] [id number] ([id number]) Microscopic Examination See below: (Normal) Comments: Microscopic was indicated and was performed. Nitrite, Urine Negative (Normal) Urobilinogen,Semi-Qn 0.2 mg/dL (Normal) Range: 0.2-1.0 Bilirubin Negative (Normal) Occult Blood Negative (Normal) Ketones Negative (Normal) Glucose Negative (Normal) Protein Negative (Normal) WBC Esterase 1+ (Abnormal) Appearance Clear (Normal) Urine-Color Yellow (Normal) pH 5.0 (Normal) Range: 5.0-7.5 Specific [place] 1.012 (Normal) Range: 1.005-1.030 :10 MICROALBUMIN: CREATININE Comments: PATIENT WAS FASTINGPERFORMED BY: sCoolTV[address] [id number] BY: sCoolTVEast Mountain HospitalOzxptw8587 [facility] [id number] RATIO (25790) AND (58768) Alb/Creat Ratio 8.5 {mg/g_creat} (Normal) Range: 0.0-30.0 Albumin, Urine 4.3 ug/mL (Normal) Creatinine, Urine 50.7 mg/dL (Normal) :10 METABOLIC PANEL, Comments: PATIENT WAS FASTINGPERFORMED BY: sCoolTV[address] [id number] BY: [facility] HospitalSonavationEast Mountain HospitalSfqfgq6118 [facility] [id number] COMPREHENSIVE (51275) ALT (SGPT) 49 [iU]/L (Abnormal) Range: 0-32 AST (SGOT) 41 [iU]/L (Abnormal) Range: 0-40 Alkaline Phosphatase 93 [iU]/L (Normal) Range: 39-117 Bilirubin, Total 0.9 mg/dL (Normal) Range: 0.0-1.2 A/G Ratio 1.7 (Normal) Range: 1.2-2.2 Globulin, Total 2.9 g/dL (Normal) Range: 1.5-4.5 Albumin 4.8 g/dL (Normal) Range: 3.5-4.8 Protein, Total 7.7 g/dL (Normal) Range: 6.0-8.5 Calcium 9.6 mg/dL (Normal) Range: 8.7-10.3 Carbon Dioxide, Total 24 mmol/L (Normal) Range: 20-29 Chloride 101 mmol/L (Normal) Range: 96-106 Potassium 4.7 mmol/L (Normal) Range: 3.5-5.2 Sodium 139 mmol/L (Normal) Range: 134-144 BUN/Creatinine Ratio 26 (Normal) Range: 12-28 eGFR If Africn Am 96 mL/min/1.73 (Normal) eGFR If NonAfricn Am 83 mL/min/1.73 (Normal) Creatinine 0.72 mg/dL (Normal) Range: 0.57-1.00 BUN 19 mg/dL (Normal) Range: 8-27 Glucose 99 mg/dL (Normal) Range: 65-99 93-Evv-85113:10 LIPOPROTEIN, BLD, BY NMR Comments: PATIENT WAS FASTINGPERFORMED BY: BN [facility] [address] [id number] BY: CB [facility] Bimyjq1399 [facility] [id number] (60698) LP-IR Score 61 (Abnormal) Comments: INSULIN RESISTANCE MARKER <--Insulin Sensitive Insulin Resistant--> Percentile in Reference PopulationInsulin Resistance ScoreLP-IR Score Low 25th 50th 75th High <27 27 45 63 >63LP-IR Score is inaccurate if patient is non-fasting. .The LP-IR score is a laboratory developed i [facility] that has beenassociated with insulin resistance and diabetes risk and should beused as one component of a physician's clinical assessment. TheLP-IR score listed above has not been cleared by the [place] Food andDrug Administration. LDL Size 20.2 nm (Normal) Comments: INTERPRETATIVE INFORMATION PARTICLE CONCENTRATION AND SIZE <--Lower CVD Risk Highe r CVD Risk--> LDL AND HDL PARTICLES Percentile in Reference Population HDL-P (total) High 75th 50th 25th Low >34.9 34.9 30.5 26.7 <26.7 . Small LDL-P Low 25th 50th 75th High <117 117 527 839 >839 . LDL Size <-Large (Pattern A)-> <-Small (Pattern B)-> 23.0 20.6 20.5 19.0 Small LDL-P and LDL Size are associated with CVD risk, but not afterLDL-P is taken into account. .These assays were developed and their performance characteristicsdetermined by [employer]. These assays have not been cleared by John Food and Drug Administration. The clinical utility of theselaboratory values have not been fully established. Small LDL-P 723 nmol/L (Abnormal) HDL-P (Total) 31.7 umol/L (Normal) Cholesterol, Total 184 mg/dL (Normal) Range: 100-199 Triglycerides 168 mg/dL (Abnormal) Range: 0-149 HDL-C 42 mg/dL (Normal) LDL-C 108 mg/dL (Abnormal) Range: 0-99 Comments: . Optimal < 100 Above optimal 100 - 129 Borderline 1 30 - 159 High 160 - 189 Very high > 189 .LDL-C is inaccurate if patient is non-fasting. LDL-P 1303 nmol/L (Abnormal) Comments: Low < 1000 Moderate 1000 - 1299 Borderline-High 1300 - 1599 High 1600 - 2000 Very High > 2000 87-Pdt-38078:10 CBC W/AUTO DIFF WBC Comments: PATIENT WAS FASTINGPERFORMED BY: BN [facility] [address] [id number] BY: CB [facility] Kvzwjd1831 [facility] [id number] (04625) Immature Grans (Abs) 0.0 {x10E3/uL} (Normal) Range: 0.0-0.1 Immature Granulocytes 0 % (Normal) Baso (Absolute) 0.0 {x10E3/uL} (Normal) Range: 0.0-0.2 Eos (Absolute) 0.3 {x10E3/uL} (Normal) Range: 0.0-0.4 Monocytes(Absolute) 1.0 {x10E3/uL} (Abnormal) Range: 0.1-0.9 Lymphs (Absolute) 2.3 {x10E3/uL} (Normal) Range: 0.7-3.1 Neutrophils (Absolute) 5.6 {x10E3/uL} (Normal) Range: 1.4-7.0 Basos 0 % (Normal) Eos 3 % (Normal) Monocytes 11 % (Normal) Lymphs 25 % (Normal) Neutrophils 61 % (Normal) Platelets 214 {x10E3/uL} (Normal) Range: 150-379 RDW 13.0 % (Normal) Range: 12.3-15.4 MCHC 32.9 g/dL (Normal) Range: 31.5-35.7 MCH 29.3 pg (Normal) Range: 26.6-33.0 MCV 89 fL (Normal) Range: 79-97 Hematocrit 42.9 % (Normal) Range: 34.0-46.6 Hemoglobin 14.1 g/dL (Normal) Range: 11.1-15.9 RBC 4.82 {x10E6/uL} (Normal) Range: 3.77-5.28 WBC 9.2 {x10E3/uL} (Normal) Range: 3.4-10.8 :01 HgA1C , Office (35453) HgA1C , Office 5.9 % (Normal) Range: 4.6 - 7.1 :01 Blood Glucose , Office (13386) Blood Glucose , Office 105 (Normal) 3-Ewp-628460:27 Urinalysis, Office (92145) UA - LEUKOCYTE ESTERASE Negative (Normal) UA - NITRITE Negative (Normal) URINE UROBILINGN EDITH TIMED Normal mg/dL (Normal) UA - PROTEIN Negative mg/dL (Normal) UA - PH 6 (Abnormal) UA - SPECIFIC GRAVITY 1.020 (Normal) UA - KETONES Negative mg/dL (Normal) UA - BILIRUBIN Negative (Normal) UA - GLUCOSE Negative (Normal) 5-Jbv-508209:53 URINE ENRIQUE CULTURE-EDITH COL Comments: PERFORMED BY: [employer] [facility] [id number] Information: SRC:UC COUNT (69350) Result 2 MUG (Normal) Comments: Mixed urogenital flora1,000 Colonies/mL S = Susceptible; I = Intermediate; R = Resistant P = Positive; N = Negative MICS are expressed in micrograms per mL Anti biotic RSLT#1 RSLT#2 RSLT#3 RSLT#4Ciprofloxacin SLevofloxacin SNitrofurantoin SPenicillin STetracycline RVancomycin S Result 1 Enterococcus faecalis Comments: 1,000 Colonies/mLNote: this isolate is vancomycin-susceptible.This information is provided for epidemiologic purposes only:vancomycin is not among the antibiotics recommended for therapyof urinary tract (Abnormal) infections caused by Enterococcus.For Enterococcus species, aminoglycosides (except for high-levelresistance screening), cephalosporins, clindamycin, andtrimethoprim-sulfamethoxazole are not effective clinically.(CLSI, M888-I00, 2016) Urine Final report (Abnormal) Culture,Comprehensive 36-Nth-32844:29 HgA1C , Office (47902) HgA1C , Office 6.0 % (Normal) Range: 4.6 - 7.1 35-Msc-61872:29 Blood Glucose , Office (97625) Blood Glucose , Office 130 (Normal) 43-Wvg-293665:04 Microscopic Examination Comments: PATIENT WAS FASTINGPERFORMED BY: [employer] Znskxp5455 [facility] [id number] Bacteria Few (Normal) Mucus Threads Present (Normal) Epithelial Cells (non renal) >10 {/hpf} (Abnormal) Range: 0 - 10 RBC None seen {/hpf} (Normal) Range: 0 - 2 WBC 0-5 {/hpf} (Normal) Range: 0 - 5 46-Tuj-184347:04 URINALYSIS, W/ MICRO (87584) Comments: PATIENT WAS FASTINGPERFORMED BY: [employer] Yaobhj3384 [facility] [id number] Microscopic Examination See below: (Normal) Comments: Microscopic was indicated and was performed. Microscopic Examination MICRON (Normal) Comments: Microscopic follows if indicated. Nitrite, Urine Negative (Normal) Urobilinogen,Semi-Qn 0.2 mg/dL (Normal) Range: 0.2-1.0 Bilirubin Negative (Normal) Occult Blood Negative (Normal) Ketones Negative (Normal) Glucose Negative (Normal) Protein Negative (Normal) WBC Esterase Negative (Normal) Appearance Clear (Normal) Urine-Color Yellow (Normal) pH 5.5 (Normal) Range: 5.0-7.5 Specific Portis 1.013 (Normal) Range: 1.005-1.030 01-Dvv-754728:04 MICROALBUMIN: CREATININE RATIO Comments: PATIENT WAS FASTINGPERFORMED BY: [employer]70 [facility]ICES[facility] [id number] (02336) AND (99813) Alb/Creat Ratio <8.8 {mg/g_creat} (Normal) Range: 0.0-30.0 Albumin, Urine <3.0 ug/mL (Normal) Creatinine, Urine 33.9 mg/dL (Normal) 39-Oxb-528828:04 CBC WITH MANUAL DIFF (61889) Comments: PATIENT WAS FASTINGPERFORMED BY: [employer]70 [facility]ICESUNC [facility] [id number] Immature Grans (Abs) 0.0 {x10E3/uL} (Normal) Range: 0.0-0.1 Immature Granulocytes 0 % (Normal) Baso (Absolute) 0.0 {x10E3/uL} (Normal) Range: 0.0-0.2 Eos (Absolute) 0.2 {x10E3/uL} (Normal) Range: 0.0-0.4 Monocytes(Absolute) 0.7 {x10E3/uL} (Normal) Range: 0.1-0.9 Lymphs (Absolute) 2.9 {x10E3/uL} (Normal) Range: 0.7-3.1 Neutrophils (Absolute) 3.8 {x10E3/uL} (Normal) Range: 1.4-7.0 Basos 1 % (Normal) Eos 3 % (Normal) Monocytes 9 % (Normal) Lymphs 38 % (Normal) Neutrophils 49 % (Normal) Platelets 219 {x10E3/uL} (Normal) Range: 150-379 RDW 13.1 % (Normal) Range: 12.3-15.4 MCHC 33.3 g/dL (Normal) Range: 31.5-35.7 MCH 30.0 pg (Normal) Range: 26.6-33.0 MCV 90 fL (Normal) Range: 79-97 Hematocrit 41.7 % (Normal) Range: 34.0-46.6 Hemoglobin 13.9 g/dL (Normal) Range: 11.1-15.9 RBC 4.64 {x10E6/uL} (Normal) Range: 3.77-5.28 WBC 7.6 {x10E3/uL} (Normal) Range: 3.4-10.8 45-Wet-066052:04 Metabolic Panel, Comprehensive Comments: PATIENT WAS FASTINGPERFORMED BY: [facility]CoEast [facility] HospitalOnokex3039 [facility] [id number] (44272) ALT (SGPT) 37 [iU]/L (Abnormal) Range: 0-32 AST (SGOT) 39 [iU]/L (Normal) Range: 0-40 Alkaline Phosphatase, S 78 [iU]/L (Normal) Range: 39-117 Bilirubin, Total 0.8 mg/dL (Normal) Range: 0.0-1.2 A/G Ratio 1.4 (Normal) Range: 1.2-2.2 Globulin, Total 3.0 g/dL (Normal) Range: 1.5-4.5 Albumin, Serum 4.3 g/dL (Normal) Range: 3.5-4.8 Protein, Total, Serum 7.3 g/dL (Normal) Range: 6.0-8.5 Calcium, Serum 9.2 mg/dL (Normal) Range: 8.7-10.3 Carbon Dioxide, Total 23 mmol/L (Normal) Range: 18-29 Chloride, Serum 103 mmol/L (Normal) Range: 96-106 Potassium, Serum 4.4 mmol/L (Normal) Range: 3.5-5.2 Sodium, Serum 142 mmol/L (Normal) Range: 134-144 BUN/Creatinine Ratio 21 (Normal) Range: 12-28 eGFR If Africn Am 100 mL/min/1.73 (Normal) eGFR If NonAfricn Am 87 mL/min/1.73 (Normal) Creatinine, Serum 0.68 mg/dL (Normal) Range: 0.57-1.00 BUN 14 mg/dL (Normal) Range: 8-27 Glucose, Serum 94 mg/dL (Normal) Range: 65-99 73-Uxp-466670:04 HEPATIC FUNCTION PANEL Comments: PATIENT WAS FASTINGPERFORMED BY: [facility]6370 [facility] [id number] (82716) Bilirubin, Direct 0.19 mg/dL (Normal) Range: 0.00-0.40 74-Kbk-012113:04 LIPID PANEL (18834) Comments: PATIENT WAS FASTINGPERFORMED BY: [facility]6370 [facility] [id number] LDL/HDL Ratio 2.0 {ratio_units} (Normal) Range: 0.0-3.2 Comments: LDL/HDL Ratio Men Women 1/2 Avg.Risk 1.0 1.5 Av g.Risk 3.6 3.2 2X Avg.Risk 6.2 5.0 3X Avg.Risk 8.0 6.1 LDL Cholesterol Calc 81 mg/dL (Normal) Range: 0-99 VLDL Cholesterol Abran 41 mg/dL (Abnormal) Range: 5-40 HDL Cholesterol 40 mg/dL (Normal) Triglycerides 206 mg/dL (Abnormal) Range: 0-149 Cholesterol, Total 162 mg/dL (Normal) Range: 100-199 55-Tsz-887024:04 CALCIFIDIOL (01229) VIT D 25 Comments: PATIENT WAS FASTINGPERFORMED BY: [facility]6370 [facility] [id number] Vitamin D, 25-Hydroxy 55.5 ng/mL (Normal) Range: 30.0-100.0 Comments: Vitamin D deficiency has been defined by the [place] of[place]icine and an Endocrine Society practice guideline as alevel of serum 25-OH vitamin D less than 20 ng/mL (1,2).The Endocrine Society went on to further define vitamin Dinsufficiency as a level between 21 and 29 ng/mL (2).1. IOM ([place] of Medicine). 2010. Dietary reference intakes for calcium and D. [place]: The National Academies Press.2. Deepak MF, Angelito NC, Adan YEBOAH, et al. Evaluation, treatment, and prevention of vitamin D deficiency: an Endocrine Society clinical practice guideline. JCEM. 2010; 96(7):1911-30. :57 HgA1C , Office (81164) HgA1C , Office 6.0 % (Normal) Range: 4.6 - 7.1 :57 Blood Glucose , Office (64506) Blood Glucose , Office 101 (Normal) 39-Wjo-450070:00 Basic Metabolic Profile (BMP) Comments: 'TROP' Serial specimen #1, #2, #3, or #4: [facility] [address] [place], [address] GAP 13 (Normal) Range: 5-15 CO2 23.0 mmol/L (Normal) Range: 21.0-32.0 CL 105 mmol/L (Normal) Range: 98-107 K 3.8 mmol/L (Normal) Range: 3.5-5.1 NA 141 mmol/L (Normal) Range: 136-145 CA 9.4 mg/dL (Normal) Range: 8.5-10.1 BUN/CRE 16.8 {RATIO} (Normal) Range: 10-20 Estimated CRCL 40.22 ml/min (Normal) EST GFR - AA 103 mL/min (Normal) Comments: GFR Calc EST GFR 85 mL/min (Normal) Comments: Non- GFR Calc CREAT,SERUM 0.71 mg/dL (Normal) Range: 0.55-1.02 Comments: The validity of the calculated GFR AND GFRAA in patients over70 years has not been determined. Clinical correlation isessential. BUN 12 mg/dL (Normal) Range: 7-18 GLU 126 mg/dL (Abnormal) Range: 70-110 Comments: Fasting Glucose result greater than or equal to 126 mg/dLsuggests DIABETES MELLITUS per A.D.A. criteria. 97-Qiy-081183:00 BNP,B-Type NATRIURETIC PEPTIDE Comments: [facility] [address] [place], [address] B-TYPE ROSIE PEP 14.9 pg/mL (Normal) Range: 0-100 81-Xgz-311395:00 CBC W/Diff, Automated Comments: [facility] [address] [place], [address] Absolute Lymph 2.91 {X10_3/ul} (Normal) Range: 0.83-4.51 Absolute Neut 9.0 {X10_3/uL} (Abnormal) Range: 2.0-7.7 IM GRAN % 0.200 % (Normal) Range: 0.0-0.9 Comments: IG% - Immature Granulocytes (promyelocytes, myelocytes andmetamyelocytes) > 1% indicates that a LEFT SHIFT is Present. BASO% 0.2 % (Normal) Range: 0-1 EO% 0.4 % (Normal) Range: 0-5 MONO% 6.0 % (Normal) Range: 0-10 LY% 22.9 % (Normal) Range: 19-41 NEUT% 70.3 % (Abnormal) Range: 47-70 MPV 10.4 fL (Normal) Range: 6.2-12.0 PLT 248 K/mm3 (Normal) Range: 150-450 RDW SD 40.9 fL (Normal) Range: 35.1-43.9 RDW CV 12.6 % (Normal) Range: 11.6-14.6 MCHC 33.5 {g/gl} (Normal) Range: 32-36 MCH 30.2 pg (Normal) Range: 27.0-32.0 MCV 90.1 fL (Normal) Range: 81-99 HCT 44.5 % (Normal) Range: 37-47 HGB 14.9 g/dL (Normal) Range: 12.0-15.0 RBC 4.94 {M/mm3} (Normal) Range: 4.2-5.4 WBC 12.7 K/mm3 (Abnormal) Range: 4.4-11.0 21-Zyl-358360:00 Troponin-I Comments: 'TROP' Serial specimen #1, #2, #3, or #4: 1[facility] [address] [place], [address] TROPONIN-I < 0.02 ng/mL (Normal) Comments: TROPONIN-I EXPECTED VALUES <0.05 NEGATIVE 0.06 - 0.59 AT RISK OF TN > OR = 0.60 SUGGEST TN 1-Tom-372670:07 Microscopic Examination Comments: PATIENT WAS FASTINGPERFORMED BY: [facility]6370 [facility] [id number] Bacteria None seen (Normal) Mucus Threads Present (Normal) Epithelial Cells (non renal) 0-10 {/hpf} (Normal) Range: 0 - 10 RBC None seen {/hpf} (Normal) Range: 0 - 2 WBC 0-5 {/hpf} (Normal) Range: 0 - 5 :31 URINE ENRIQUE CULTURE-EDITH COL Comments: PATIENT NOT FASTINGPERFORMED BY: [facility] Aytnix0692 [facility] [id number] Information: SRC:UC COUNT (51047) Result 1 MUG (Normal) Comments: Mixed urogenital flora2,000 Colonies/mL Urine Culture,Comprehensive Final report (Normal) 99-Adt-578070:43 Urinalysis, Office (54565) UA - LEUKOCYTE ESTERASE Negative (Normal) UA - NITRITE Negative (Normal) URINE UROBILINGN EDITH TIMED Normal mg/dL (Normal) UA - PROTEIN Negative mg/dL (Normal) UA - PH 5 (Abnormal) UA - BLOOD non-hemolyzed trace (Normal) UA - SPECIFIC GRAVITY 1.020 (Normal) UA - KETONES Negative mg/dL (Normal) UA - BILIRUBIN Negative (Normal) UA - GLUCOSE Negative (Normal) :16 HgA1C , Office (50268) HgA1C , Office 5.8 % (Normal) Range: 4.6 - 7.1 :16 Blood Glucose , Office (58160) Blood Glucose , Office 104 (Normal) 9-Jxs-509025:07 CALCIFEDIOL (86252) Comments: PATIENT WAS FASTINGPERFORMED BY: [facility]6370 [facility] [id number] Vitamin D, 25-Hydroxy 66.5 ng/mL (Normal) Range: 30.0-100.0 Comments: Vitamin D deficiency has been defined by the [place] of[place]icine and an Endocrine Society practice guideline as alevel of serum 25-OH vitamin D less than 20 ng/mL (1,2).The Endocrine Society went on to further define vitamin Dinsufficiency as a level between 21 and 29 ng/mL (2).1. IOM ([place] of [place]). 2010. Dietary reference intakes for calcium and D. [place]: The National Academies Press.2. Deepak MF, Angelito NC, Adan YEBOAH, et al. Evaluation, treatment, and prevention of vitamin D deficiency: an Endocrine Society clinical practice guideline. JCEM. 2010; 96(7):1631-30. :07 TSH (88412) Comments: PATIENT WAS FASTINGPERFORMED BY: [facility]6370 [facility] DEVICESblin [place] [id number] TSH 1.920 {uIU/mL} (Normal) Range: 0.450-4.500 0-Cni-922180:07 URINALYSIS, W/ MICRO (88482) Comments: PATIENT WAS FASTINGPERFORMED BY: [facility] [id number] Microscopic Examination See below: (Normal) Comments: Microscopic was indicated and was performed. Microscopic Examination MICRON (Normal) Comments: Microscopic follows if indicated. Nitrite, Urine Negative (Normal) Urobilinogen,Semi-Qn 0.2 mg/dL (Normal) Range: 0.2-1.0 Bilirubin Negative (Normal) Occult Blood Negative (Normal) Ketones Negative (Normal) Glucose Negative (Normal) Protein Negative (Normal) WBC Esterase Negative (Normal) Appearance Clear (Normal) Urine-Color Yellow (Normal) pH 5.5 (Normal) Range: 5.0-7.5 Specific Portis 1.008 (Normal) Range: 1.005-1.030 :07 MICROALBUMIN: CREATININE RATIO Comments: PATIENT WAS FASTINGPERFORMED BY: [employer] [facility]ICESin [place] [id number] (80688) AND (26963) Microalb/Creat Ratio <13.7 {mg/g_creat} (Normal) Range: 0.0-30.0 Microalbumin, Urine <3.0 ug/mL (Normal) Creatinine, Urine 21.9 mg/dL (Normal) :07 METABOLIC PANEL, COMPREHENSIVE Comments: PATIENT WAS FASTINGPERFORMED BY: [employer]ICES[facility] [place] [id number] (14406) ALT (SGPT) 32 [iU]/L (Normal) Range: 0-32 AST (SGOT) 29 [iU]/L (Normal) Range: 0-40 Alkaline Phosphatase, S 95 [iU]/L (Normal) Range: 39-117 Bilirubin, Total 0.4 mg/dL (Normal) Range: 0.0-1.2 A/G Ratio 1.5 (Normal) Range: 1.2-2.2 Globulin, Total 3.0 g/dL (Normal) Range: 1.5-4.5 Albumin, Serum 4.5 g/dL (Normal) Range: 3.5-4.8 Protein, Total, Serum 7.5 g/dL (Normal) Range: 6.0-8.5 Calcium, Serum 9.7 mg/dL (Normal) Range: 8.7-10.3 Carbon Dioxide, Total 26 mmol/L (Normal) Range: 18-29 Chloride, Serum 102 mmol/L (Normal) Range: 96-106 Potassium, Serum 5.2 mmol/L (Normal) Range: 3.5-5.2 Sodium, Serum 142 mmol/L (Normal) Range: 134-144 BUN/Creatinine Ratio 26 (Normal) Range: 12-28 eGFR If Africn Am 101 mL/min/1.73 (Normal) eGFR If NonAfricn Am 87 mL/min/1.73 (Normal) Creatinine, Serum 0.69 mg/dL (Normal) Range: 0.57-1.00 BUN 18 mg/dL (Normal) Range: 8-27 Glucose, Serum 98 mg/dL (Normal) Range: 65-99 6-Erw-557960:07 LIPID PANEL (60907) Comments: PATIENT WAS FASTINGPERFORMED BY: [facility]CoEast [facility] HospitalZyyypy2960 [facility] [id number] LDL/HDL Ratio 1.9 {ratio_units} (Normal) Range: 0.0-3.2 Comments: LDL/HDL Ratio Men Women 1/2 Avg.Risk 1.0 1.5 Av g.Risk 3.6 3.2 2X Avg.Risk 6.2 5.0 3X Avg.Risk 8.0 6.1 LDL Cholesterol Calc 83 mg/dL (Normal) Range: 0-99 VLDL Cholesterol Abran 58 mg/dL (Abnormal) Range: 5-40 HDL Cholesterol 44 mg/dL (Normal) Triglycerides 289 mg/dL (Abnormal) Range: 0-149 Cholesterol, Total 185 mg/dL (Normal) Range: 100-199 3-Qsd-118192:07 CBC with auto diff (87305) Comments: PATIENT WAS FASTINGPERFORMED BY: [facility] Qiazpi6724 [address] [place] [id number] Immature Grans (Abs) 0.0 {x10E3/uL} (Normal) Range: 0.0-0.1 Immature Granulocytes 0 % (Normal) Baso (Absolute) 0.0 {x10E3/uL} (Normal) Range: 0.0-0.2 Eos (Absolute) 0.3 {x10E3/uL} (Normal) Range: 0.0-0.4 Monocytes(Absolute) 0.9 {x10E3/uL} (Normal) Range: 0.1-0.9 Lymphs (Absolute) 3.1 {x10E3/uL} (Normal) Range: 0.7-3.1 Neutrophils (Absolute) 3.8 {x10E3/uL} (Normal) Range: 1.4-7.0 Basos 0 % (Normal) Eos 4 % (Normal) Monocytes 11 % (Normal) Lymphs 38 % (Normal) Neutrophils 47 % (Normal) Platelets 220 {x10E3/uL} (Normal) Range: 150-379 RDW 13.1 % (Normal) Range: 12.3-15.4 MCHC 32.3 g/dL (Normal) Range: 31.5-35.7 MCH 29.6 pg (Normal) Range: 26.6-33.0 MCV 92 fL (Normal) Range: 79-97 Hematocrit 43.3 % (Normal) Range: 34.0-46.6 Hemoglobin 14.0 g/dL (Normal) Range: 11.1-15.9 Comments: Please note reference interval change RBC 4.73 {x10E6/uL} (Normal) Range: 3.77-5.28 WBC 8.1 {x10E3/uL} (Normal) Range: 3.4-10.8 93-Sot-625629:19 CREATININE FINGERSTICK Comments: [facility] [address] [place] [address] EGFR WB Test not performed mL/min (Normal) CREATININE WB < 0.6 mg/dL (Normal) Range: 0.55-1.02 :49 SED RATE ERYTHROCYTE (45083) Comments: PATIENT NOT FASTINGPERFORMED BY: [facility]6370 [facility] [id number] Sedimentation Rate-Westergren 17 mm/h (Normal) Range: 0-40 :49 C-REACTIVE PROTEIN (40385) Comments: PATIENT NOT FASTINGPERFORMED BY: [facility] Zpdoxl9895 [facility] [id number] C-Reactive Protein, Quant 1.5 mg/L (Normal) Range: 0.0-4.9 :49 CBC W/AUTO DIFF WBC (54129) Comments: PATIENT NOT FASTINGPERFORMED BY: [facility] Flint6370 [facility] [id number] Immature Grans (Abs) 0.0 {x10E3/uL} (Normal) Range: 0.0-0.1 Immature Granulocytes 0 % (Normal) Baso (Absolute) 0.0 {x10E3/uL} (Normal) Range: 0.0-0.2 Eos (Absolute) 0.5 {x10E3/uL} (Abnormal) Range: 0.0-0.4 Monocytes(Absolute) 0.6 {x10E3/uL} (Normal) Range: 0.1-0.9 Lymphs (Absolute) 2.4 {x10E3/uL} (Normal) Range: 0.7-3.1 Neutrophils (Absolute) 3.9 {x10E3/uL} (Normal) Range: 1.4-7.0 Basos 0 % (Normal) Eos 6 % (Normal) Monocytes 8 % (Normal) Lymphs 32 % (Normal) Neutrophils 54 % (Normal) Platelets 223 {x10E3/uL} (Normal) Range: 150-379 RDW 12.5 % (Normal) Range: 12.3-15.4 MCHC 33.9 g/dL (Normal) Range: 31.5-35.7 MCH 29.6 pg (Normal) Range: 26.6-33.0 MCV 87 fL (Normal) Range: 79-97 Hematocrit 40.7 % (Normal) Range: 34.0-46.6 Hemoglobin 13.8 g/dL (Normal) Range: 11.1-15.9 RBC 4.66 {x10E6/uL} (Normal) Range: 3.77-5.28 WBC 7.5 {x10E3/uL} (Normal) Range: 3.4-10.8 :49 [id number] (57959) Comments: PATIENT NOT FASTINGPERFORMED BY: [facility]LiveUNC [facility] [id number] AFP, Serum, Tumor Marker 1.0 ng/mL (Normal) Range: 0.0-8.3 Comments: Laury ECLIA methodology :05 HgA1C , Office (43414) HgA1C , Office 5.8 % (Normal) Range: 4.6 - 7.1 :05 Blood Glucose , Office (03461) Blood Glucose , Office 104 (Normal) :36 HgA1C , Office (32433) HgA1C , Office 5.6 % (Normal) Range: 4.6 - 7.1 :35 Blood Glucose , Office (33389) Blood Glucose , Office 94 (Normal) :02 Microscopic Examination Comments: PATIENT WAS FASTINGPERFORMED BY: [facility]6370 [facility] [id number] Bacteria Moderate (Abnormal) Mucus Threads Present (Normal) Epithelial Cells (non renal) 0-10 {/hpf} (Normal) Range: 0 - 10 RBC None seen {/hpf} (Normal) Range: 0 - 2 WBC 0-5 {/hpf} (Normal) Range: 0 - 5 :02 CALCIFIDIOL (51056) VIT D 25 Comments: PATIENT WAS FASTINGPERFORMED BY: [facility]Live[facility] [id number] Vitamin D, 25-Hydroxy 102.0 ng/mL (Abnormal) Range: 30.0-100.0 Comments: Vitamin D deficiency has been defined by the [place] ofMed[employer] and an Endocrine Society practice guideline as alevel of serum 25-OH vitamin D less than 20 ng/mL (1,2).The Endocrine Society went on to further define vitamin Dinsufficiency as a level between 21 and 29 ng/mL (2).1. IOM ([place] of [employer]). 2010. Dietary reference intakes for calcium and D. [place]: The National Academies Press.2. Deepak MF, Angelito ARANDA, Adan YEBOAH, et al. Evaluation, treatment, and prevention of vitamin D deficiency: an Endocrine Society clinical practice guideline. JCEM. 2010; 96(7):1911-30. [id number] LIPID PANEL (26000) Comments: PATIENT WAS FASTINGPERFORMED BY: Draths CorporationUNC [facility] [id number] LDL/HDL Ratio 1.9 {ratio_units} (Normal) Range: 0.0-3.2 Comments: LDL/HDL Ratio Men Women 1/2 Avg.Risk 1.0 1.5 Av g.Risk 3.6 3.2 2X Avg.Risk 6.2 5.0 3X Avg.Risk 8.0 6.1 LDL Cholesterol Calc 74 mg/dL (Normal) Range: 0-99 VLDL Cholesterol Abran 36 mg/dL (Normal) Range: 5-40 HDL Cholesterol 39 mg/dL (Abnormal) Triglycerides 181 mg/dL (Abnormal) Range: 0-149 Cholesterol, Total 149 mg/dL (Normal) Range: 100-199 [id number]:02 TSH (06597) Comments: PATIENT WAS FASTINGPERFORMED BY: [email or web address] [id number] [facility] [id number] TSH 1.080 {uIU/mL} (Normal) Range: 0.450-4.500 [id number]-[id number]:02 URINALYSIS, W/ MICRO (23373) Comments: PATIENT WAS FASTINGPERFORMED BY: [email or web address] [id number] Microscopic Examination See below: (Normal) Comments: Microscopic was indicated and was performed. Microscopic Examination MICRON (Normal) Comments: Microscopic follows if indicated. Nitrite, Urine Negative (Normal) Urobilinogen,Semi-Qn 0.2 mg/dL (Normal) Range: 0.2-1.0 Bilirubin Negative (Normal) Occult Blood Negative (Normal) Ketones Negative (Normal) Glucose Negative (Normal) Protein Negative (Normal) WBC Esterase Negative (Normal) Appearance Clear (Normal) Urine-Color Yellow (Normal) pH 6.0 (Normal) Range: 5.0-7.5 Specific Portis 1.015 (Normal) Range: 1.005-1.030 8-Zhd-989964:02 MICROALBUMIN: CREATININE RATIO Comments: PATIENT WAS FASTINGPERFORMED BY: YUPPTV Wfsoxs6174 [facility] [id number] ([id number]) AND (44805) Microalb/Creat Ratio <6.8 {mg/g_creat} (Normal) Range: 0.0-30.0 Microalbumin, Urine <3.0 ug/mL (Normal) Creatinine, Urine 43.9 mg/dL (Normal) 8-Hpf-632163:02 METABOLIC PANEL, COMPREHENSIVE Comments: PATIENT WAS FASTINGPERFORMED BY: FMS [facility]6370 [facility] [id number] ([id number]) ALT (SGPT) 28 [iU]/L (Normal) Range: 0-32 AST (SGOT) 29 [iU]/L (Normal) Range: 0-40 Alkaline Phosphatase, S 93 [iU]/L (Normal) Range: 39-117 Bilirubin, Total 0.6 mg/dL (Normal) Range: 0.0-1.2 A/G Ratio 1.6 (Normal) Range: 1.1-2.5 Comments: Effective October 11, 2016 the reference interval for A/G Ratio will be changing to: Age Male Female 0 - 7 d ays 1.1 - 2.3 1.1 - 2.3 8 - 30 days 1.2 - 2.8 1.2 - 2.8 1 - 6 months 1.3 - 3.6 1.3 - 3.6 7 months - 5 years 1.5 - 2.6 1.5 - 2.6 > 5 years 1.2 - 2.2 1.2 - 2.2 Globulin, Total 2.9 g/dL (Normal) Range: 1.5-4.5 Albumin, Serum 4.5 g/dL (Normal) Range: 3.5-4.8 Protein, Total, Serum 7.4 g/dL (Normal) Range: 6.0-8.5 Calcium, Serum 9.5 mg/dL (Normal) Range: 8.7-10.3 Carbon Dioxide, Total 22 mmol/L (Normal) Range: 18-29 Chloride, Serum 100 mmol/L (Normal) Range: 96-106 Potassium, Serum 4.5 mmol/L (Normal) Range: 3.5-5.2 Sodium, Serum 139 mmol/L (Normal) Range: 134-144 BUN/Creatinine Ratio 30 (Abnormal) Range: 11-26 eGFR If Africn Am 103 mL/min/1.73 (Normal) eGFR If NonAfricn Am 89 mL/min/1.73 (Normal) Creatinine, Serum 0.64 mg/dL (Normal) Range: 0.57-1.00 BUN 19 mg/dL (Normal) Range: 8-27 Glucose, Serum 94 mg/dL (Normal) Range: 65-99 5-Waa-261380:02 CBC W/AUTO DIFF WBC Comments: PATIENT WAS FASTINGPERFORMED BY: [facility]6370 [facility] [id number] Information: [id number] ([id number]) Immature Grans (Abs) 0.0 {x10E3/uL} (Normal) Range: 0.0-0.1 Immature Granulocytes 0 % (Normal) Baso (Absolute) 0.0 {x10E3/uL} (Normal) Range: 0.0-0.2 Eos (Absolute) 0.3 {x10E3/uL} (Normal) Range: 0.0-0.4 Monocytes(Absolute) 0.5 {x10E3/uL} (Normal) Range: 0.1-0.9 Lymphs (Absolute) 2.3 {x10E3/uL} (Normal) Range: 0.7-3.1 Neutrophils (Absolute) 3.6 {x10E3/uL} (Normal) Range: 1.4-7.0 Basos 0 % (Normal) Eos 4 % (Normal) Monocytes 8 % (Normal) Lymphs 34 % (Normal) Neutrophils 54 % (Normal) Platelets 218 {x10E3/uL} (Normal) Range: 150-379 RDW 13.0 % (Normal) Range: 12.3-15.4 MCHC 33.8 g/dL (Normal) Range: 31.5-35.7 MCH 30.2 pg (Normal) Range: 26.6-33.0 MCV 89 fL (Normal) Range: 79-97 Hematocrit 42.9 % (Normal) Range: 34.0-46.6 Hemoglobin 14.5 g/dL (Normal) Range: 11.1-15.9 RBC 4.80 {x10E6/uL} (Normal) Range: 3.77-5.28 WBC 6.8 {x10E3/uL} (Normal) Range: 3.4-10.8 :31 HgA1C , Office (14823) HgA1C , Office 5.7 % (Normal) Range: 4.6 - 7.1 :31 Blood Glucose , Office (57842) Blood Glucose , Office 93 (Normal) :27 Microscopic Examination Comments: PATIENT WAS FASTINGPERFORMED BY: TechLiveUNC Health [facility] [id number] Bacteria Few (Normal) Mucus Threads Present (Normal) Epithelial Cells (non renal) 0-10 {/hpf} (Normal) Range: 0 - 10 RBC 0-2 {/hpf} (Normal) Range: 0 - 2 WBC 0-5 {/hpf} (Normal) Range: 0 - 5 :56 Urinalysis, Office (37651) UA - LEUKOCYTE ESTERASE Negative (Normal) UA - NITRITE Negative (Normal) URINE UROBILINGN EDITH TIMED Normal mg/dL (Normal) UA - PROTEIN Negative mg/dL (Normal) UA - PH 7 (Normal) UA - BLOOD Non Hemolyzed Trace (Normal) UA - SPECIFIC GRAVITY 1.015 (Normal) UA - KETONES Negative mg/dL (Normal) UA - BILIRUBIN Negative (Normal) UA - GLUCOSE Negative (Normal) :31 URINE ENRIQUE CULTURE-IDENTIFICATN Comments: PATIENT NOT FASTINGPERFORMED BY: [facility] XamplifiedUNC Health Wayne [id number] Information: SRC:UC ([id number]) Result 1 MUG (Normal) Comments: Mixed urogenital flora10,000-25,000 colony forming units per mL Urine Final report (Normal) Culture,Comprehensive :27 QCRPR-[id number] (79113) Comments: PATIENT WAS FASTINGPERFORMED BY: sCoolTVGuadalupe County HospitalMxjgyz3058 [facility] [id number] AFP, Serum, Tumor Marker 2.4 ng/mL (Normal) Range: 0.0-8.3 Comments: Laury ECLIA methodology TSH (12070) Comments: PATIENT WAS FASTINGPERFORMED BY: TethisCedar County Memorial HospitalJlosml0045 [facility] [id number] TSH 1.230 {uIU/mL} (Normal) Range: 0.450-4.500 URINALYSIS, W/ MICRO (35622) Comments: PATIENT WAS FASTINGPERFORMED BY: TethisPike County Memorial Hospital Wqbwxw1645 [facility] [id number] Microscopic Examination See below: (Normal) Comments: Microscopic was indicated and was performed. Microscopic Examination MICRON (Normal) Comments: Microscopic follows if indicated. Nitrite, Urine Negative (Normal) Urobilinogen,Semi-Qn 0.2 mg/dL (Normal) Range: 0.2-1.0 Bilirubin Negative (Normal) Occult Blood Negative (Normal) Ketones Negative (Normal) Glucose Negative (Normal) Protein Negative (Normal) WBC Esterase Negative (Normal) Appearance Clear (Normal) Urine-Color Yellow (Normal) pH 7.0 (Normal) Range: 5.0-7.5 Specific Portis 1.008 (Normal) Range: 1.005-1.030 MICROALBUMIN: CREATININE RATIO Comments: PATIENT WAS FASTINGPERFORMED BY: sCoolTVGuadalupe County HospitalJssgax2639 [facility] [id number] ([id number]) AND (15724) Microalb/Creat Ratio <13.0 {mg/g_creat} (Normal) Range: 0.0-30.0 Microalbumin, Urine <3.0 ug/mL (Normal) Creatinine, Urine 23.0 mg/dL (Normal) METABOLIC PANEL, COMPREHENSIVE Comments: PATIENT WAS FASTINGPERFORMED BY: sCoolTVGuadalupe County HospitalUnzawr5534 [facility] [id number] (93615) ALT (SGPT) 39 [iU]/L (Abnormal) Range: 0-32 AST (SGOT) 37 [iU]/L (Normal) Range: 0-40 Alkaline Phosphatase, S 90 [iU]/L (Normal) Range: 39-117 Bilirubin, Total 0.7 mg/dL (Normal) Range: 0.0-1.2 A/G Ratio 1.6 (Normal) Range: 1.1-2.5 Globulin, Total 2.7 g/dL (Normal) Range: 1.5-4.5 Albumin, Serum 4.3 g/dL (Normal) Range: 3.5-4.8 Protein, Total, Serum 7.0 g/dL (Normal) Range: 6.0-8.5 Calcium, Serum 9.1 mg/dL (Normal) Range: 8.7-10.3 Carbon Dioxide, Total 22 mmol/L (Normal) Range: 18-29 Chloride, Serum 104 mmol/L (Normal) Range: 97-108 Potassium, Serum 4.0 mmol/L (Normal) Range: 3.5-5.2 Sodium, Serum 143 mmol/L (Normal) Range: 134-144 BUN/Creatinine Ratio 17 (Normal) Range: 11-26 eGFR If Africn Am 97 mL/min/1.73 (Normal) eGFR If NonAfricn Am 85 mL/min/1.73 (Normal) Creatinine, Serum 0.72 mg/dL (Normal) Range: 0.57-1.00 BUN 12 mg/dL (Normal) Range: 8-27 Glucose, Serum 102 mg/dL (Abnormal) Range: 65-99 08-Apr-20169:27 LIPID PANEL (59359) Comments: PATIENT WAS FASTINGPERFORMED BY: LabCoEast Mountain HospitalAzbieu5125 [facility] [id number] LDL/HDL Ratio 2.2 {ratio_units} (Normal) Range: 0.0-3.2 Comments: LDL/HDL Ratio Men Women 1/2 Avg.Risk 1.0 1.5 Av g.Risk 3.6 3.2 2X Avg.Risk 6.2 5.0 3X Avg.Risk 8.0 6.1 LDL Cholesterol Calc 92 mg/dL (Normal) Range: 0-99 VLDL Cholesterol Abran 34 mg/dL (Normal) Range: 5-40 HDL Cholesterol 42 mg/dL (Normal) Comments: According to ATP-III Guidelines, HDL-C >59 mg/dL is considered anegative risk factor for CHD. Triglycerides 168 mg/dL (Abnormal) Range: 0-149 Cholesterol, Total 168 mg/dL (Normal) Range: 100-199 :27 CBC W/AUTO DIFF WBC (43448) Comments: PATIENT WAS FASTINGPERFORMED BY: Draths CorporationUNC Health [facility]ardee [id number] Immature Grans (Abs) 0.0 {x10E3/uL} (Normal) Range: 0.0-0.1 Immature Granulocytes 0 % (Normal) Baso (Absolute) 0.0 {x10E3/uL} (Normal) Range: 0.0-0.2 Eos (Absolute) 0.2 {x10E3/uL} (Normal) Range: 0.0-0.4 Monocytes(Absolute) 0.6 {x10E3/uL} (Normal) Range: 0.1-0.9 Lymphs (Absolute) 2.1 {x10E3/uL} (Normal) Range: 0.7-3.1 Neutrophils (Absolute) 3.2 {x10E3/uL} (Normal) Range: 1.4-7.0 Basos 0 % (Normal) Eos 4 % (Normal) Monocytes 10 % (Normal) Lymphs 34 % (Normal) Neutrophils 52 % (Normal) Platelets 234 {x10E3/uL} (Normal) Range: 150-379 RDW 13.1 % (Normal) Range: 12.3-15.4 MCHC 34.0 g/dL (Normal) Range: 31.5-35.7 MCH 29.8 pg (Normal) Range: 26.6-33.0 MCV 88 fL (Normal) Range: 79-97 Hematocrit 39.4 % (Normal) Range: 34.0-46.6 Hemoglobin 13.4 g/dL (Normal) Range: 11.1-15.9 RBC 4.50 {x10E6/uL} (Normal) Range: 3.77-5.28 WBC 6.2 {x10E3/uL} (Normal) Range: 3.4-10.8 77-Xpp-149772:22 URINE ENRIQUE CULTURE-IDENTIFICATN Comments: PATIENT NOT FASTINGPERFORMED BY: TechLiveblin [place] [id number] Information: [id number] ([id number]) Antimicrobial MIHEAD (Normal) Comments: S = Susceptible; I = Intermediate; R = Resistant P = Positive; N = Negative MICS are expressed in micrograms per mL Antibiotic RSLT#1 RSLT#2 RS Susceptibility LT#3 RSLT#4Ciprofloxacin SLevofloxacin SNitrofurantoin SPenicillin STetracycline RVancomycin S Result 1 Enterococcus faecalis Comments: Greater than 100,000 colony forming units per mLNote: this isolate is vancomycin-susceptible.This information is provided for epidemiologic purposes only:vancomycin is not among the antibiotics recommen (Abnormal) ded for therapyof urinary tract infections caused by Enterococcus.For Enterococcus species, cephalosporins, aminoglycosides (except forhigh-level resistance screening), clindamycin, and trimethoprim-sul famethoxazole are not effective clinically. Fluoroquinolones areused primarily for treating urinary tract infections. (CLSI, [id number],2009) Urine Culture,Comprehensive Final report (Abnormal) 21-Dty-917644:28 Urinalysis, Office (65981) UA - LEUKOCYTE ESTERASE Negative (Normal) UA - NITRITE Negative (Normal) URINE UROBILINGN EDITH TIMED Normal mg/dL (Normal) UA - PROTEIN Negative mg/dL (Normal) UA - PH 5 (Abnormal) UA - BLOOD Negative (Normal) UA - SPECIFIC GRAVITY 1.010 (Normal) UA - KETONES Negative mg/dL (Normal) UA - BILIRUBIN Negative (Normal) UA - GLUCOSE Negative (Normal) 7-Ink-381795:00 Basic Metabolic Profile (BMP) Comments: [facility] [address]hsftcn[address] [place], [address] GAP 7 (Normal) Range: 5-15 CO2 26.0 mmol/L (Normal) Range: 21.0-32.0 CL 108 mmol/L (Abnormal) Range: 98-107 K 3.6 mmol/L (Normal) Range: 3.5-5.1 NA 141 mmol/L (Normal) Range: 136-145 CA 8.7 mg/dL (Normal) Range: 8.5-10.1 BUN/CRE 25.5 {RATIO} (Abnormal) Range: 10-20 Estimated CRCL 42.68 ml/min (Normal) EST GFR - AA 120 mL/min (Normal) Comments: GFR Calc EST GFR 99 mL/min (Normal) Comments: Non- GFR Calc CREAT,SERUM 0.63 mg/dL (Normal) Range: 0.55-1.20 Comments: The validity of the calculated GFR AND GFRAA in patients over70 years has not been determined. Clinical correlation isessential. BUN 16 mg/dL (Normal) Range: 7-18 GLU 93 mg/dL (Normal) Range: 70-110 4-Tfu-732575:00 CBC W/Diff, Automated Comments: [facility] [address]fs[address]qve[address] [place], [address] Absolute Lymph 2.60 {X10_3/ul} (Normal) Range: 0.83-4.51 Absolute Neut 3.9 {X10_3/uL} (Normal) Range: 2.0-7.7 IM GRAN % 0.300 % (Normal) Range: 0.0-0.9 Comments: IG% - Immature Granulocytes (promyelocytes, myelocytes andmetamyelocytes) > 1% indicates that a LEFT SHIFT is Present. BASO% 0.3 % (Normal) Range: 0-1 EO% 1.6 % (Normal) Range: 0-5 MONO% 12.7 % (Abnormal) Range: 0-10 LY% 34.0 % (Normal) Range: 19-41 NEUT% 51.1 % (Normal) Range: 47-70 MPV 10.4 fL (Normal) Range: 6.2-12.0 PLT 203 K/mm3 (Normal) Range: 150-450 RDW SD 40.2 fL (Normal) Range: 35.1-43.9 RDW CV 12.5 % (Normal) Range: 11.6-14.6 MCHC 34.4 {g/gl} (Normal) Range: 32-36 MCH 30.4 pg (Normal) Range: 27.0-32.0 MCV 88.5 fL (Normal) Range: 81-99 HCT 38.4 % (Normal) Range: 37-47 HGB 13.2 g/dL (Normal) Range: 12.0-15.0 RBC 4.34 {M/mm3} (Normal) Range: 4.2-5.4 WBC 7.7 K/mm3 (Normal) Range: 4.4-11.0 9-Oho-316583:16 CBC, PLATELETS & AUT DIFF Comments: PATIENT NOT FASTINGPERFORMED BY: LabCoEast Mountain HospitalNapdti9886 [facility] [id number] Information: [id number] (97330) Immature Grans (Abs) 0.0 {x10E3/uL} (Normal) Range: 0.0-0.1 Immature Granulocytes 0 % (Normal) Baso (Absolute) 0.0 {x10E3/uL} (Normal) Range: 0.0-0.2 Eos (Absolute) 0.1 {x10E3/uL} (Normal) Range: 0.0-0.4 Monocytes(Absolute) 0.6 {x10E3/uL} (Normal) Range: 0.1-0.9 Lymphs (Absolute) 1.7 {x10E3/uL} (Normal) Range: 0.7-3.1 Neutrophils (Absolute) 4.9 {x10E3/uL} (Normal) Range: 1.4-7.0 Basos 0 % (Normal) Eos 2 % (Normal) Monocytes 8 % (Normal) Lymphs 23 % (Normal) Neutrophils 67 % (Normal) Platelets 246 {x10E3/uL} (Normal) Range: 150-379 RDW 13.1 % (Normal) Range: 12.3-15.4 MCHC 33.3 g/dL (Normal) Range: 31.5-35.7 MCH 29.7 pg (Normal) Range: 26.6-33.0 MCV 89 fL (Normal) Range: 79-97 Hematocrit 40.9 % (Normal) Range: 34.0-46.6 Hemoglobin 13.6 g/dL (Normal) Range: 11.1-15.9 RBC 4.58 {x10E6/uL} (Normal) Range: 3.77-5.28 WBC 7.4 {x10E3/uL} (Normal) Range: 3.4-10.8 6-Ern-605421:16 HELICOBACTER PYLORI ANTIBODY Comments: PATIENT NOT FASTINGPERFORMED BY: [facility]6370 [facility] [id number] ([id number]) H. pylori, IgG Abs <0.9 U/mL (Normal) Range: 0.0-0.8 Comments: Negative <0.9 Indeterminate 0.9 - 1.0 Positive >1.0 3-Ghn-457209:06 Urinalysis, Office (10650) UA - LEUKOCYTE ESTERASE Negative (Normal) UA - NITRITE Negative (Normal) URINE UROBILINGN EDITH TIMED Normal mg/dL (Normal) UA - PROTEIN Negative mg/dL (Normal) UA - PH 5.0 (Normal) UA - BLOOD non-hemolyzed trace (Normal) UA - SPECIFIC GRAVITY 1.005 (Normal) UA - KETONES Negative mg/dL (Normal) UA - BILIRUBIN Negative (Normal) UA - GLUCOSE Negative (Normal) 08-Kqu-497962:15 CBC, Platelets & Auto Comments: PATIENT NOT FASTINGPERFORMED BY: LabCoEast Mountain HospitalAgndic7771 [facility] [id number] Information: [id number], [id number] Diff (52462) Immature Grans (Abs) 0.0 {x10E3/uL} (Normal) Range: 0.0-0.1 Immature Granulocytes 0 % (Normal) Baso (Absolute) 0.0 {x10E3/uL} (Normal) Range: 0.0-0.2 Eos (Absolute) 0.2 {x10E3/uL} (Normal) Range: 0.0-0.4 Monocytes(Absolute) 0.8 {x10E3/uL} (Normal) Range: 0.1-0.9 Lymphs (Absolute) 2.1 {x10E3/uL} (Normal) Range: 0.7-3.1 Neutrophils (Absolute) 7.2 {x10E3/uL} (Abnormal) Range: 1.4-7.0 Basos 0 % (Normal) Eos 2 % (Normal) Monocytes 7 % (Normal) Lymphs 21 % (Normal) Neutrophils 70 % (Normal) Platelets 217 {x10E3/uL} (Normal) Range: 150-379 RDW 13.2 % (Normal) Range: 12.3-15.4 MCHC 33.3 g/dL (Normal) Range: 31.5-35.7 MCH 30.0 pg (Normal) Range: 26.6-33.0 MCV 90 fL (Normal) Range: 79-97 Hematocrit 42.4 % (Normal) Range: 34.0-46.6 Hemoglobin 14.1 g/dL (Normal) Range: 11.1-15.9 RBC 4.70 {x10E6/uL} (Normal) Range: 3.77-5.28 WBC 10.3 {x10E3/uL} (Normal) Range: 3.4-10.8 :54 Sputum Culture (55976) Comments: PATIENT NOT FASTINGPERFORMED BY: [facility]6370 [facility] [id number] Information: [id number] Result 1 RRF (Normal) Comments: Routine respiratory corina Lower Respiratory Culture Final report (Normal) 7-Stm-990962:10 CBC With Differential/Platelet Comments: PATIENT WAS FASTINGPERFORMED BY: TethisMclaren Flint6370 [facility] [id number] Immature Grans (Abs) 0.0 {x10E3/uL} (Normal) Range: 0.0-0.1 Immature Granulocytes 0 % (Normal) Baso (Absolute) 0.0 {x10E3/uL} (Normal) Range: 0.0-0.2 Eos (Absolute) 0.1 {x10E3/uL} (Normal) Range: 0.0-0.4 Monocytes(Absolute) 1.0 {x10E3/uL} (Abnormal) Range: 0.1-0.9 Lymphs (Absolute) 3.5 {x10E3/uL} (Abnormal) Range: 0.7-3.1 Neutrophils (Absolute) 7.4 {x10E3/uL} (Abnormal) Range: 1.4-7.0 Basos 0 % (Normal) Eos 0 % (Normal) Monocytes 8 % (Normal) Lymphs 29 % (Normal) Neutrophils 63 % (Normal) Platelets 262 {x10E3/uL} (Normal) Range: 150-379 RDW 13.0 % (Normal) Range: 12.3-15.4 MCHC 34.6 g/dL (Normal) Range: 31.5-35.7 MCH 30.4 pg (Normal) Range: 26.6-33.0 MCV 88 fL (Normal) Range: 79-97 Hematocrit 41.9 % (Normal) Range: 34.0-46.6 Hemoglobin 14.5 g/dL (Normal) Range: 11.1-15.9 RBC 4.77 {x10E6/uL} (Normal) Range: 3.77-5.28 WBC 11.9 {x10E3/uL} (Abnormal) Range: 3.4-10.8 :10 Comp. Metabolic Panel (14) Comments: PATIENT WAS FASTINGPERFORMED BY: [id number] [facility] DEVICESUNC [facility] [id number] ALT (SGPT) 27 [iU]/L (Normal) Range: 0-32 AST (SGOT) 24 [iU]/L (Normal) Range: 0-40 Alkaline Phosphatase, S 90 [iU]/L (Normal) Range: 39-117 Bilirubin, Total 0.7 mg/dL (Normal) Range: 0.0-1.2 A/G Ratio 1.5 (Normal) Range: 1.1-2.5 Globulin, Total 3.0 g/dL (Normal) Range: 1.5-4.5 Albumin, Serum 4.5 g/dL (Normal) Range: 3.5-4.8 Protein, Total, Serum 7.5 g/dL (Normal) Range: 6.0-8.5 Calcium, Serum 9.6 mg/dL (Normal) Range: 8.7-10.3 Carbon Dioxide, Total 22 mmol/L (Normal) Range: 18-29 Chloride, Serum 101 mmol/L (Normal) Range: 97-108 Potassium, Serum 4.7 mmol/L (Normal) Range: 3.5-5.2 Sodium, Serum 142 mmol/L (Normal) Range: 134-144 BUN/Creatinine Ratio 27 (Abnormal) Range: 11-26 eGFR If Africn Am 104 mL/min/1.73 (Normal) eGFR If NonAfricn Am 91 mL/min/1.73 (Normal) Creatinine, Serum 0.63 mg/dL (Normal) Range: 0.57-1.00 BUN 17 mg/dL (Normal) Range: 8-27 Glucose, Serum 83 mg/dL (Normal) Range: 65-99 :10 Lipid Panel With LDL/HDL Comments: PATIENT WAS FASTINGPERFORMED BY: FMS [facility]6370 [facility] Electron DatabaseUNC Health [facility] [id number] Ratio LDL/HDL Ratio 1.5 {ratio_units} (Normal) Range: 0.0-3.2 Comments: LDL/HDL Ratio Men Women 1/2 Avg.Risk 1.0 1.5 Av g.Risk 3.6 3.2 2X Avg.Risk 6.2 5.0 3X Avg.Risk 8.0 6.1 LDL Cholesterol Calc 81 mg/dL (Normal) Range: 0-99 VLDL Cholesterol Abran 39 mg/dL (Normal) Range: 5-40 HDL Cholesterol 54 mg/dL (Normal) Comments: According to ATP-III Guidelines, HDL-C >59 mg/dL is considered anegative risk factor for CHD. Triglycerides 196 mg/dL (Abnormal) Range: 0-149 Cholesterol, Total 174 mg/dL (Normal) Range: 100-199 2-Fxt-953199:10 Microalb/Creat Ratio, Randm Ur Comments: PATIENT WAS FASTINGPERFORMED BY: sCoolTV Yramql4987 [facility] [id number] Microalb/Creat Ratio 15.6 {mg/g_creat} Range: 0.0-30.0 (Normal) Microalbumin, Urine 9.2 ug/mL (Normal) Creatinine, Urine 58.8 mg/dL (Normal) TSH 1.290 {uIU/mL} Comments: PATIENT WAS FASTINGPERFORMED BY: sCoolTV Mylhle4224 [facility] [id number] 2:10 (Normal) Range: 0.450-4.500 Vitamin D, 25-Hydroxy 62.2 ng/mL (Normal) Comments: PATIENT WAS FASTINGPERFORMED BY: [facility] Umtekf2522 [facility] [id number] 2:10 Range: 30.0-100.0 Comments: Vitamin D deficiency has been defined by the [place] ofMedicine and an Endocrine Society practice guideline as alevel of serum 25-OH vitamin D less than 20 ng/mL (1,2).The Endocrine Society went on to further define vitamin Dinsufficiency as a level between 21 and 29 ng/mL (2).1. IOM ([place] of Medicine). 2010. Dietary reference intakes for calcium and D. [place]: The National Academies Press.2. Angelito Renteria, Adan YEBOAH, et al. Evaluation, treatment, and prevention of vitamin D deficiency: an Endocrine Society clinical practice guideline. JCEM. 2010; 96(7):191-. :34 CALCIFIDIOL (09316) VIT D Comments: PATIENT WAS FASTINGPERFORMED BY: FMS [facility]6370 [facility] [id number] BY: sCoolTVCommunity Medical CenterKbaoklpiqk0364 [facility] [id number] 25 Vitamin D, 25-Hydroxy 71.5 ng/mL (Normal) Range: 30.0-100.0 Comments: Vitamin D deficiency has been defined by the [place] of[place]icine and an Endocrine Society practice guideline as alevel of serum 25-OH vitamin D less than 20 ng/mL (1,2).The Endocrine Society went on to further define vitamin Dinsufficiency as a level between 21 and 29 ng/mL (2).1. IOM ([place] of Medicine). 2010. Dietary reference intakes for calcium and D. [place]: The National Academies Press.2. Deepak GABRIEL, Angelito ARANDA, Adan YEBOAH, et al. Evaluation, treatment, and prevention of vitamin D deficiency: an Endocrine Society clinical practice guideline. JCEM. 2010; 96(7):1911-. :34 LIPID PANEL (51112) Comments: PATIENT WAS FASTINGPERFORMED BY: [place]6370 [facility] [id number] BY: sCoolTVCommunity Medical CenterIxpnbytwkx6386 [facility] [id number]; will review at 10/01 appt LDL/HDL Ratio 1.8 {ratio_units} (Normal) Range: 0.0-3.2 Comments: LDL/HDL Ratio Men Women 1/2 Avg.Risk 1.0 1.5 Av g.Risk 3.6 3.2 2X Avg.Risk 6.2 5.0 3X Avg.Risk 8.0 6.1 LDL Cholesterol Calc 77 mg/dL (Normal) Range: 0-99 VLDL Cholesterol Abran 51 mg/dL (Abnormal) Range: 5-40 HDL Cholesterol 42 mg/dL (Normal) Comments: According to ATP-III Guidelines, HDL-C >59 mg/dL is considered anegative risk factor for CHD. Triglycerides 257 mg/dL (Abnormal) Range: 0-149 Cholesterol, Total 170 mg/dL (Normal) Range: 100-199 :34 CCP ANTIBODY (79616) Comments: PATIENT WAS FASTINGPERFORMED BY: sCoolTVGuadalupe County HospitalCesscy0224 [facility] [id number] BY: [address] [id number] CCP Antibodies IgG/IgA 6 {units} (Normal) Range: 0-19 Comments: Negative <20 Weak positive 20 - 39 Moderate positive 40 - 59 Strong positive >59 :34 TSH (56072) Comments: PATIENT WAS FASTINGPERFORMED BY: sCoolTV Muxlku5508 [facility] [id number] BY: [address] [id number] TSH 1.640 {uIU/mL} (Normal) Range: 0.450-4.500 :34 RHEUMATOID FACTOR-QUANT Comments: PATIENT WAS FASTINGPERFORMED BY: sCoolTVGuadalupe County HospitalLudzqh3511 [facility] [id number] BY: [address] [id number] (28665) RA Latex Turbid. 9.9 {IU/mL} (Normal) Range: 0.0-13.9 :34 KRISTEL (ANTINUCLEAR ANTIBODY) Comments: PATIENT WAS FASTINGPERFORMED BY: sCoolTVEast Mountain HospitalJimsfu3016 [facility] [id number] BY: [address] [id number] (16469) KRISTEL Direct Negative (Normal) :34 C-REACTIVE PROTEIN (88319) Comments: PATIENT WAS FASTINGPERFORMED BY: sCoolTVMiguel Ville [id number] [facility] [id number] BY: [facility] HospitalJeremy Ville [address] [facility] [id number] C-Reactive Protein, Quant 0.9 mg/L (Normal) Range: 0.0-4.9 :34 Sed Rate Erythrocyte Comments: PATIENT WAS FASTINGPERFORMED BY: sCoolTVEast Mountain HospitalFxpyuo4525 [facility] [id number] BY: sCoolTV[address] [id number] ([id number]) Sedimentation Rate-Westergren 16 mm/h (Normal) Range: 0-40 :34 CBC with auto diff Comments: PATIENT WAS FASTINGPERFORMED BY: sCoolTVMiguel [place] [id number] [facility] [id number] BY: sCoolTV[address] [id number] Inf ormation: [id number] ([id number]) Immature Grans (Abs) 0.0 {x10E3/uL} (Normal) Range: 0.0-0.1 Immature Granulocytes 0 % (Normal) Baso (Absolute) 0.0 {x10E3/uL} (Normal) Range: 0.0-0.2 Eos (Absolute) 0.2 {x10E3/uL} (Normal) Range: 0.0-0.4 Monocytes(Absolute) 0.9 {x10E3/uL} (Normal) Range: 0.1-0.9 Lymphs (Absolute) 1.9 {x10E3/uL} (Normal) Range: 0.7-3.1 Neutrophils (Absolute) 6.3 {x10E3/uL} (Normal) Range: 1.4-7.0 Basos 0 % (Normal) Eos 2 % (Normal) Monocytes 10 % (Normal) Lymphs 21 % (Normal) Neutrophils 67 % (Normal) Platelets 233 {x10E3/uL} (Normal) Range: 150-379 RDW 13.0 % (Normal) Range: 12.3-15.4 MCHC 34.0 g/dL (Normal) Range: 31.5-35.7 MCH 29.8 pg (Normal) Range: 26.6-33.0 MCV 88 fL (Normal) Range: 79-97 Hematocrit 43.2 % (Normal) Range: 34.0-46.6 Hemoglobin 14.7 g/dL (Normal) Range: 11.1-15.9 RBC 4.93 {x10E6/uL} (Normal) Range: 3.77-5.28 WBC 9.3 {x10E3/uL} (Normal) Range: 3.4-10.8 [id number] Metabolic Panel, Comments: PATIENT WAS FASTINGPERFORMED BY: CB [facility] Mupuli5765 [facility] [id number] BY: BN [facility] Fhtqwbjkuj7450 [facility] [id number] [facility] ([id number]) ALT (SGPT) 33 [iU]/L (Abnormal) Range: 0-32 AST (SGOT) 30 [iU]/L (Normal) Range: 0-40 Alkaline Phosphatase, S 89 [iU]/L (Normal) Range: 39-117 Bilirubin, Total 0.6 mg/dL (Normal) Range: 0.0-1.2 A/G Ratio 1.4 (Normal) Range: 1.1-2.5 Globulin, Total 3.2 g/dL (Normal) Range: 1.5-4.5 Albumin, Serum 4.6 g/dL (Normal) Range: 3.5-4.8 Protein, Total, Serum 7.8 g/dL (Normal) Range: 6.0-8.5 Calcium, Serum 10.0 mg/dL (Normal) Range: 8.7-10.3 Carbon Dioxide, Total 23 mmol/L (Normal) Range: 18-29 Chloride, Serum 102 mmol/L (Normal) Range: 97-108 Potassium, Serum 4.6 mmol/L (Normal) Range: 3.5-5.2 Sodium, Serum 142 mmol/L (Normal) Range: 134-144 BUN/Creatinine Ratio 21 (Normal) Range: 11-26 eGFR If Africn Am 102 mL/min/1.73 (Normal) eGFR If NonAfricn Am 88 mL/min/1.73 (Normal) Creatinine, Serum 0.70 mg/dL (Normal) Range: 0.57-1.00 BUN 15 mg/dL (Normal) Range: 8-27 Glucose, Serum 95 mg/dL (Normal) Range: 65-99 :32 HgA1C , Office (42517) HgA1C , Office 5.8 % (Normal) Range: 4.6 - 7.1 :32 Blood Glucose , Office (52958) Blood Glucose , Office 85 (Normal) :16 Microscopic Examination Comments: PATIENT NOT FASTINGPERFORMED BY: CB [facility] Imemry[address]ublin [place] [id number] Bacteria Few (Normal) Epithelial Cells (non renal) 0-10 {/hpf} (Normal) Range: 0 - 10 RBC None seen {/hpf} (Normal) Range: 0 - 2 WBC None seen {/hpf} (Normal) Range: 0 - 5 :16 T4, FREE (THYROXINE) (65429) Comments: send copy to dr lópez [phone]; PATIENT NOT FASTINGPERFORMED BY: [facility] Qxkyxg9797 [address] RoadDublin [place] [id number] T4,Free(Direct) 1.10 ng/dL (Normal) Range: 0.82-1.77 :16 TSH (63061) Comments: send copy to dr lópez [phone]; PATIENT NOT FASTINGPERFORMED BY: [facility] Ptpuad4799 [address] RoadDublin [place] [id number] TSH 1.230 {uIU/mL} (Normal) Range: 0.450-4.500 :16 CALCIFIDIOL (77103) VIT D 25 Comments: PATIENT NOT FASTINGPERFORMED BY: CB [facility] Wwsnwu59[address]Dublin [place] [id number] Vitamin D, 25-Hydroxy 38.0 ng/mL (Normal) Range: 30.0-100.0 Comments: Vitamin D deficiency has been defined by the [place] of[place]icine and an Endocrine Society practice guideline as alevel of serum 25-OH vitamin D less than 20 ng/mL (1,2).The Endocrine Society went on to further define vitamin Dinsufficiency as a level between 21 and 29 ng/mL (2).1. IOM ([place] of [place]). 2010. Dietary reference intakes for calcium and D. [place]: The National Academies Press.2. Deepak MF, Angelito NC, Adan YEBOAH, et al. Evaluation, treatment, and prevention of vitamin D deficiency: an Endocrine Society clinical practice guideline. JCEM. 2010; 96(7):1911-30. :16 URINALYSIS, W/ MICRO (67904) Comments: PATIENT NOT FASTINGPERFORMED BY: KILTR [facility] [id number] Microscopic Examination See below: (Normal) Comments: Microscopic was indicated and was performed. Microscopic Examination MICRON (Normal) Comments: Microscopic follows if indicated. Nitrite, Urine Negative (Normal) Urobilinogen,Semi-Qn 0.2 mg/dL (Normal) Range: 0.2-1.0 Bilirubin Negative (Normal) Occult Blood Negative (Normal) Ketones Negative (Normal) Glucose Negative (Normal) Protein Negative (Normal) WBC Esterase Negative (Normal) Appearance Clear (Normal) Urine-Color Yellow (Normal) pH 6.5 (Normal) Range: 5.0-7.5 Specific Portis 1.010 (Normal) Range: 1.005-1.030 :16 MICROALBUMIN: CREATININE RATIO Comments: PATIENT NOT FASTINGPERFORMED BY: FMS [facility]6[address] [facility] [id number] ([id number]) AND (43386) Microalb/Creat Ratio <15.3 {mg/g_creat} (Normal) Range: 0.0-30.0 Microalbumin, Urine <3.0 ug/mL (Normal) Range: 0.0-17.0 Creatinine, Urine 19.6 mg/dL (Normal) Range: 15.0-278.0 :16 METABOLIC PANEL, COMPREHENSIVE Comments: PATIENT NOT FASTINGPERFORMED BY: Aquantia[address] [facility] [id number] (57733) ALT (SGPT) 23 [iU]/L (Normal) Range: 0-32 AST (SGOT) 20 [iU]/L (Normal) Range: 0-40 Alkaline Phosphatase, S 100 [iU]/L (Normal) Range: 39-117 Bilirubin, Total 0.5 mg/dL (Normal) Range: 0.0-1.2 A/G Ratio 1.6 (Normal) Range: 1.1-2.5 Globulin, Total 2.9 g/dL (Normal) Range: 1.5-4.5 Albumin, Serum 4.7 g/dL (Normal) Range: 3.5-4.8 Protein, Total, Serum 7.6 g/dL (Normal) Range: 6.0-8.5 Calcium, Serum 9.6 mg/dL (Normal) Range: 8.7-10.3 Carbon Dioxide, Total 24 mmol/L (Normal) Range: 18-29 Chloride, Serum 101 mmol/L (Normal) Range: 97-108 Potassium, Serum 4.6 mmol/L (Normal) Range: 3.5-5.2 Sodium, Serum 141 mmol/L (Normal) Range: 134-144 BUN/Creatinine Ratio 14 (Normal) Range: 11-26 eGFR If Africn Am 96 mL/min/1.73 (Normal) eGFR If NonAfricn Am 84 mL/min/1.73 (Normal) Creatinine, Serum 0.73 mg/dL (Normal) Range: 0.57-1.00 BUN 10 mg/dL (Normal) Range: 8-27 Glucose, Serum 92 mg/dL (Normal) Range: 65-99 77-Nav-33671:16 LIPID PANEL (84673) Comments: PATIENT NOT FASTINGPERFORMED BY: [facility] Crmmab0531 [facility] [id number] LDL/HDL Ratio 2.7 {ratio_units} (Normal) Range: 0.0-3.2 Comments: LDL/HDL Ratio Men Women 1/2 Avg.Risk 1.0 1.5 Av g.Risk 3.6 3.2 2X Avg.Risk 6.2 5.0 3X Avg.Risk 8.0 6.1 LDL Cholesterol Calc 126 mg/dL (Abnormal) Range: 0-99 VLDL Cholesterol Abran 48 mg/dL (Abnormal) Range: 5-40 HDL Cholesterol 46 mg/dL (Normal) Comments: According to ATP-III Guidelines, HDL-C >59 mg/dL is considered anegative risk factor for CHD. Triglycerides 238 mg/dL (Abnormal) Range: 0-149 Cholesterol, Total 220 mg/dL (Abnormal) Range: 100-199 :16 CBC W/AUTO DIFF WBC Comments: PATIENT NOT FASTINGPERFORMED BY: LabCoEast Mountain HospitalQoqtve1040 [facility] [id number] Information: [id number] (28297) Immature Grans (Abs) 0.0 {x10E3/uL} (Normal) Range: 0.0-0.1 Immature Granulocytes 0 % (Normal) Baso (Absolute) 0.0 {x10E3/uL} (Normal) Range: 0.0-0.2 Eos (Absolute) 0.2 {x10E3/uL} (Normal) Range: 0.0-0.4 Monocytes(Absolute) 0.7 {x10E3/uL} (Normal) Range: 0.1-0.9 Lymphs (Absolute) 2.2 {x10E3/uL} (Normal) Range: 0.7-3.1 Neutrophils (Absolute) 3.4 {x10E3/uL} (Normal) Range: 1.4-7.0 Basos 0 % (Normal) Eos 4 % (Normal) Monocytes 11 % (Normal) Lymphs 33 % (Normal) Neutrophils 52 % (Normal) Platelets 211 {x10E3/uL} (Normal) Range: 150-379 RDW 12.9 % (Normal) Range: 12.3-15.4 MCHC 33.3 g/dL (Normal) Range: 31.5-35.7 MCH 29.6 pg (Normal) Range: 26.6-33.0 MCV 89 fL (Normal) Range: 79-97 Hematocrit 42.7 % (Normal) Range: 34.0-46.6 Hemoglobin 14.2 g/dL (Normal) Range: 11.1-15.9 RBC 4.80 {x10E6/uL} (Normal) Range: 3.77-5.28 WBC 6.6 {x10E3/uL} (Normal) Range: 3.4-10.8 :14 HgA1C , Office (89472) HgA1C , Office 5.5 % (Normal) Range: 4.6 - 7.1 :14 Blood Glucose , Office (46839) Blood Glucose , Office 86 (Normal) 45-Nxc-310020:54 HgA1C , Office (09827) HgA1C , Office 6.0 % (Normal) Range: 4.6 - 7.1 67-Ijg-375760:54 Blood Glucose , Office (83872) Blood Glucose , 101 (Normal) Office :5 AFP, Serum, Tumor 1.4 ng/mL (Normal) Comments: PATIENT WAS FASTINGPERFORMED BY: sCoolTVEast Mountain HospitalCguqqu4255 [facility] [id number] 7 Marker Range: 0.0-8.3 Comments: Laury ECLIA methodology :57 CBC With Differential/Platelet Comments: PATIENT WAS FASTINGPERFORMED BY: sCoolTV Ylfpes0301 [facility] [id number] Information: [id number] Immature Grans (Abs) 0.0 {x10E3/uL} (Normal) Range: 0.0-0.1 Immature Granulocytes 0 % (Normal) Baso (Absolute) 0.1 {x10E3/uL} (Normal) Range: 0.0-0.2 Eos (Absolute) 0.3 {x10E3/uL} (Normal) Range: 0.0-0.4 Monocytes(Absolute) 0.5 {x10E3/uL} (Normal) Range: 0.1-0.9 Lymphs (Absolute) 2.1 {x10E3/uL} (Normal) Range: 0.7-3.1 Neutrophils (Absolute) 4.9 {x10E3/uL} (Normal) Range: 1.4-7.0 Basos 1 % (Normal) Eos 4 % (Normal) Monocytes 7 % (Normal) Lymphs 26 % (Normal) Neutrophils 62 % (Normal) Platelets 253 {x10E3/uL} (Normal) Range: 150-379 RDW 13.2 % (Normal) Range: 12.3-15.4 MCHC 33.6 g/dL (Normal) Range: 31.5-35.7 MCH 29.7 pg (Normal) Range: 26.6-33.0 MCV 89 fL (Normal) Range: 79-97 Hematocrit 41.4 % (Normal) Range: 34.0-46.6 Hemoglobin 13.9 g/dL (Normal) Range: 11.1-15.9 RBC 4.68 {x10E6/uL} (Normal) Range: 3.77-5.28 WBC 7.9 {x10E3/uL} (Normal) Range: 3.4-10.8 :57 Comp. Metabolic Panel (14) Comments: PATIENT WAS FASTINGPERFORMED BY: Aquantia70 [facility] [id number] ALT (SGPT) 27 [iU]/L (Normal) Range: 0-32 AST (SGOT) 28 [iU]/L (Normal) Range: 0-40 Alkaline Phosphatase, S 91 [iU]/L (Normal) Range: 39-117 Bilirubin, Total 0.5 mg/dL (Normal) Range: 0.0-1.2 A/G Ratio 1.6 (Normal) Range: 1.1-2.5 Globulin, Total 2.8 g/dL (Normal) Range: 1.5-4.5 Albumin, Serum 4.4 g/dL (Normal) Range: 3.5-4.8 Protein, Total, Serum 7.2 g/dL (Normal) Range: 6.0-8.5 Calcium, Serum 9.6 mg/dL (Normal) Range: 8.7-10.3 Carbon Dioxide, Total 23 mmol/L (Normal) Range: 18-29 Chloride, Serum 100 mmol/L (Normal) Range: 97-108 Potassium, Serum 4.6 mmol/L (Normal) Range: 3.5-5.2 Sodium, Serum 141 mmol/L (Normal) Range: 134-144 BUN/Creatinine Ratio 20 (Normal) Range: 11-26 eGFR If Africn Am 102 mL/min/1.73 (Normal) eGFR If NonAfricn Am 88 mL/min/1.73 (Normal) Creatinine, Serum 0.69 mg/dL (Normal) Range: 0.57-1.00 BUN 14 mg/dL (Normal) Range: 8-27 Glucose, Serum 101 mg/dL (Abnormal) Range: 65-99 :57 Lipid Panel With LDL/HDL Comments: PATIENT WAS FASTINGPERFORMED BY: FMS [facility]6370 [facility] [id number] Ratio LDL/HDL Ratio 1.9 {ratio_units} (Normal) Range: 0.0-3.2 Comments: LDL/HDL Ratio Men Women 1/2 Avg.Risk 1.0 1.5 Av g.Risk 3.6 3.2 2X Avg.Risk 6.2 5.0 3X Avg.Risk 8.0 6.1 LDL Cholesterol Calc 80 mg/dL (Normal) Range: 0-99 VLDL Cholesterol Abran 54 mg/dL (Abnormal) Range: 5-40 HDL Cholesterol 42 mg/dL (Normal) Comments: According to ATP-III Guidelines, HDL-C >59 mg/dL is considered anegative risk factor for CHD. Triglycerides 269 mg/dL (Abnormal) Range: 0-149 Cholesterol, Total 176 mg/dL (Normal) Range: 100-199 :57 Microalb/Creat Ratio, Frandy Liang Comments: PATIENT WAS FASTINGPERFORMED BY: Dr[facility] CorporationUNC Health [facility] [id number] Microalb/Creat Ratio 8.5 {mg/g_creat} (Normal) Range: 0.0-30.0 Microalbumin, Urine 9.0 ug/mL (Normal) Range: 0.0-17.0 Creatinine, Urine 105.6 mg/dL (Normal) Range: 15.0-278.0 :57 Microscopic Examination Comments: PATIENT WAS FASTINGPERFORMED BY: Aquantia[address] [facility] [id number] Bacteria Few (Normal) Mucus Threads Present (Normal) Epithelial Cells (non renal) >10 {/hpf} (Abnormal) Range: 0 - 10 RBC 0-2 {/hpf} (Normal) Range: 0 - 2 WBC 0-5 {/hpf} (Normal) Range: 0 - 5 :57 Prothrombin Time (PT) Comments: PATIENT WAS FASTINGPERFORMED BY: Aquantia70 [facility] [id number] Prothrombin Time 10.9 {sec} (Normal) Range: 9.1-12.0 INR 1.0 (Normal) Range: 0.8-1.2 Comments: Reference interval is for non-anticoagulated patients. . Suggested INR therapeutic range for Vitamin K anta gonist therapy: Standard Dose (moderate intensity therapeutic range): 2.0 - 3.0 Higher intensity therapeutic range 2.5 - 3.5 :57 PTT, Activated Comments: PATIENT WAS FASTINGPERFORMED BY: [facility]6370 [facility] [id number] aPTT 28 {sec} (Normal) Range: 24-33 Comments: This test has not been validated for monitoring unfractionated heparintherapy. aPTT-based therapeutic ranges for unfractionated heparintherapy have not been established. For general guidelines onHeparin monitoring, refer to the [facility] Directory of Services. :57 Urinalysis, Complete Comments: PATIENT WAS FASTINGPERFORMED BY: [facility]6370 [facility] [id number] Microscopic Examination See below: (Normal) Comments: Microscopic was indicated and was performed. Microscopic Examination MICRON (Normal) Comments: Microscopic follows if indicated. Nitrite, Urine Negative (Normal) Urobilinogen,Semi-Qn 0.2 mg/dL (Normal) Range: 0.0-1.9 Bilirubin Negative (Normal) Occult Blood Negative (Normal) Ketones Negative (Normal) Glucose Negative (Normal) Protein Negative (Normal) WBC Esterase Negative (Normal) Appearance Cloudy (Abnormal) Urine-Color Yellow (Normal) pH 6.0 (Normal) Range: 5.0-7.5 Specific Portis 1.020 (Normal) Range: 1.005-1.030 : Vitamin D, 25-Hydroxy 56.0 ng/mL (Normal) Comments: PATIENT WAS FASTINGPERFORMED BY: [facility]6370 [facility] [id number] Range: 30.0-100.0 Comments: Vitamin D deficiency has been defined by the [place] of[place]icine and an Endocrine Society practice guideline as alevel of serum 25-OH vitamin D less than 20 ng/mL (1,2).The Endocrine Society went on to further define vitamin Dinsufficiency as a level between 21 and 29 ng/mL (2).1. IOM ([place] of [place]). 2010. Dietary reference intakes for calcium and D. [place]: The National Academies Press.2. Deepak GABRIEL, Angelito ARANDA, Adan YEBOAH, et al. Evaluation, treatment, and prevention of vitamin D deficiency: an Endocrine Society clinical practice guideline. JCEM. 2010; 96(7):1911-30. :31 HgA1C , Office (32842) HgA1C , Office 6.1 % (Normal) Range: 4.6 - 7.1 :31 Blood Glucose , Office (35053) Blood Glucose , Office 106 (Normal) :36 Mass (define area) See Note (Normal) Comments: Test performed at:[facility] Ettmquapdm[address] [place], [place] [address] Comments: Patient: DINAH HICKMAN : 1945 (69/F) Acct Num: [id number] Phys: Edu Mayen Unit Num: [id number] Loc: [facility] Specimen: [id number] Received: 11/22/14 - 1318 Spec Type: Mass TISSUES TISSUES: COMMENT Case has been reviewed in consultation with Dr. Gurrola who concurs with the abovediagnosis. IDC:AM GROSS DESCRIPTION Received is one container lab eled with the patient name and designated right pelvic mass. The specimen consists of an irregular piece of fibromembranous tissue measuring 4 x 2 x 0.2 cm. Focal area also shows central defect. Th e specimen is serially sectioned and submitted entirely in two cassettes. / SJ:dee 11/22/14 TC:5 CPT: 11089 HEADER OPERATION: Lap assisted robotic removal PRE-OPERATIVE DIAGNOSIS: Right lower q uadrant mass TISSUE SUBMITTED: Right pelvic mass MICROSCOPIC DIAGNOSIS Right pelvic mass, biopsy: Consistent with benign cyst, may represent benign paratubal cyst. SJ: 11/25/14 Signed Kade Payne 11/25/14 <signature on file> 76-Whx-939506:30 TSH (25011) Comments: PATIENT NOT FASTINGPERFORMED BY: [facility] Lueiay[address] [facility] [id number] TSH 1.160 {uIU/mL} (Normal) Range: 0.450-4.500 87-Syg-028735:30 T4, FREE (THYROXINE) Comments: PATIENT NOT FASTINGPERFORMED BY: [place] 2913770 [facility] [id number] Information: [id number] (38939) T4,Free(Direct) 1.18 ng/dL (Normal) Range: 0.82-1.77 83-Ffo-114440:30 T3, FREE (TRIDOTHYRONINE) (46292) Comments: PATIENT NOT FASTINGPERFORMED BY: [facility]6370 [facility] [id number] Triiodothyronine,Free,Serum 3.1 pg/mL (Normal) Range: 2.0-4.4 0-Usi-353498:30 Basic Metabolic Profile (BMP) Comments: Test performed at:[facility] Wcotadiztj9668 [facility] [place] [address] GAP 7 (Normal) Range: 5-15 CO2 26.0 mmol/L (Normal) Range: 21.0-32.0 CL 104 mmol/L (Normal) Range: 98-107 K 4.2 mmol/L (Normal) Range: 3.5-5.1 NA 137 mmol/L (Normal) Range: 136-145 CA 9.4 mg/dL (Normal) Range: 8.5-10.1 BUN/CRE 27.1 {RATIO} (Abnormal) Range: 10-20 Estimated CRCL 43.30 ml/min (Normal) EST GFR - AA 107 mL/min (Normal) EST GFR 88 mL/min (Normal) CREAT,SERUM 0.7 mg/dL (Normal) Range: 0.6-1.0 BUN 19 mg/dL (Abnormal) Range: 7-18 GLU 90 mg/dL (Normal) Range: 70-110 6-Mgo-988356:30 CBC W/Diff, Automated Comments: Test performed at:[facility] T[address]hsjgxkt[address] [place] [address] Absolute Lymph 2.87 {X10_3/ul} (Normal) Range: 0.83-4.51 Absolute Neut 7.9 {X10_3/uL} (Abnormal) Range: 2.0-7.7 IM GRAN % 0.300 % (Normal) Range: 0.0-0.9 Comments: IG% - Immature Granulocytes (promyelocytes, myelocytes andmetamyelocytes) > 1% indicates that a LEFT SHIFT is Present. BASO% 0.4 % (Normal) Range: 0-1 EO% 5.1 % (Abnormal) Range: 0-5 MONO% 9.5 % (Normal) Range: 0-10 LY% 22.6 % (Normal) Range: 19-41 NEUT% 62.1 % (Normal) Range: 47-70 MPV 10.3 fL (Normal) Range: 6.2-12.0 PLT 259 K/mm3 (Normal) Range: 150-450 RDW SD 39.3 fL (Normal) Range: 35.1-43.9 RDW CV 12.5 % (Normal) Range: 11.6-14.6 MCHC 33.5 {g/gl} (Normal) Range: 32-36 MCH 29.6 pg (Normal) Range: 27.0-32.0 MCV 88.5 fL (Normal) Range: 81-99 HCT 44.8 % (Normal) Range: 37-47 HGB 15.0 g/dL (Normal) Range: 12.0-15.0 RBC 5.06 {M/mm3} (Normal) Range: 4.2-5.4 WBC 12.7 K/mm3 (Abnormal) Range: 4.4-11.0 05-Sep-20149:19 HEPATIC FUNCTION PANEL Comments: PATIENT NOT FASTINGPERFORMED BY: LabCoMiguel Ville 9702670 [facility] [id number] Information: [id number] (58916) ALT (SGPT) 44 [iU]/L (Abnormal) Range: 0-32 AST (SGOT) 37 [iU]/L (Normal) Range: 0-40 Alkaline Phosphatase, S 107 [iU]/L (Normal) Range: 39-117 Bilirubin, Direct 0.12 mg/dL (Normal) Range: 0.00-0.40 Bilirubin, Total 0.5 mg/dL (Normal) Range: 0.0-1.2 Albumin, Serum 4.6 g/dL (Normal) Range: 3.6-4.8 Protein, Total, Serum 7.5 g/dL (Normal) Range: 6.0-8.5 :19 Vitamin D Hydroxy (27854) Comments: PATIENT NOT FASTINGPERFORMED BY: [facility] Oryvlz7436 [facility] [id number] Vitamin D, 25-Hydroxy 70.0 ng/mL (Normal) Range: 30.0-100.0 Comments: Vitamin D deficiency has been defined by the [place] of[place]icine and an Endocrine Society practice guideline as alevel of serum 25-OH vitamin D less than 20 ng/mL (1,2).The Endocrine Society went on to further define vitamin Dinsufficiency as a level between 21 and 29 ng/mL (2).1. IOM ([place] of [place]). 2010. Dietary reference intakes for calcium and D. [place]: The National Academies Press.2. Deepak MF, Angelito NC, Adan YEBOAH, et al. Evaluation, treatment, and prevention of vitamin D deficiency: an Endocrine Society clinical practice guideline. JCEM. 2010; 96(7):1911-30. :03 HgA1C , Office (40521) HgA1C , Office 6.3 % (Normal) Range: 4.6 - 7.1 :03 Blood Glucose , Office (56619) Blood Glucose , Office 118 (Normal) 14-Djy-641196:14 URINE ENRIQUE CULTURE-EDITH COL Comments: PATIENT NOT FASTINGPERFORMED BY: [facility] Nnqput1532 [facility] [id number] Information: SRC:UR [id number] COUNT (69984) Antimicrobial MIHEAD (Normal) Comments: S = Susceptible; I = Intermediate; R = Resistant P = Positive; N = Negative MICS are expressed in micrograms per mL Antibiotic RSLT#1 RSLT#2 Susceptibility RSLT#3 RSLT#4Amoxicillin/Clavulanic Acid SAmpicillin SCefepime SCeftriaxone SCefuroxime SCephalothin ICiprofloxacin SErtapenem SGentamicin SImipenem SLevofloxacin SNitrofurantoin S Piperacillin STetracycline STobramycin STrimethoprim/Sulfa S Result 1 Escherichia coli Comments: Greater than 100,000 colony forming units per mL (Abnormal) Urine Final report Culture,Comprehensive (Abnormal) 74-Bgj-974475:15 Urinalysis, Office (29557) UA - LEUKOCYTE ESTERASE Small (Normal) UA - NITRITE Negative (Normal) URINE UROBILINGN EDITH TIMED 2 mg/dL (Normal) UA - PROTEIN Negative mg/dL (Normal) UA - PH 6.5 (Normal) UA - BLOOD Hemolyzed Small (Normal) UA - SPECIFIC GRAVITY 1.015 (Normal) UA - KETONES Negative mg/dL (Normal) UA - BILIRUBIN Negative (Normal) UA - GLUCOSE Negative (Normal) :48 HgA1C , Office (71835) HgA1C , Office 6.4 % (Normal) Range: 4.6 - 7.1 47-Qoq-43508:48 Blood Glucose , Office (17180) Blood Glucose , Office 123 (Normal) 32-Jas-983537:15 Microscopic Examination Comments: PATIENT WAS FASTINGPERFORMED BY: FMS [facility] [facility] [id number] Bacteria None seen (Normal) Mucus Threads Present (Normal) Epithelial Cells (non renal) 0-10 {/hpf} (Normal) Range: 0 - 10 RBC 0-2 {/hpf} (Normal) Range: 0 - 2 WBC 0-5 {/hpf} (Normal) Range: 0 - 5 76-Wgs-003260:15 LIPID PANEL (63797) Comments: PATIENT WAS FASTINGPERFORMED BY: Aquantia70 [facility] [id number] LDL/HDL Ratio 1.8 {ratio_units} (Normal) Range: 0.0-3.2 Comments: LDL/HDL Ratio Men Women 1/2 Avg.Risk 1.0 1.5 Av g.Risk 3.6 3.2 2X Avg.Risk 6.2 5.0 3X Avg.Risk 8.0 6.1 LDL Cholesterol Calc 79 mg/dL (Normal) Range: 0-99 VLDL Cholesterol Abran 41 mg/dL (Abnormal) Range: 5-40 HDL Cholesterol 44 mg/dL (Normal) Comments: According to ATP-III Guidelines, HDL-C >59 mg/dL is considered anegative risk factor for CHD. Triglycerides 204 mg/dL (Abnormal) Range: 0-149 Cholesterol, Total 164 mg/dL (Normal) Range: 100-199 33-Yhu-839751:15 URINALYSIS, W/ MICRO (30268) Comments: PATIENT WAS FASTINGPERFORMED BY: Aquantia[address] [facility] [id number] Microscopic Examination See below: (Normal) Comments: Microscopic was indicated and was performed. Microscopic Examination MICRON (Normal) Comments: Microscopic follows if indicated. Nitrite, Urine Negative (Normal) Urobilinogen,Semi-Qn 0.2 mg/dL (Normal) Range: 0.0-1.9 Bilirubin Negative (Normal) Occult Blood Negative (Normal) Ketones Negative (Normal) Glucose Negative (Normal) Protein Negative (Normal) WBC Esterase Negative (Normal) Appearance Clear (Normal) Urine-Color Yellow (Normal) pH 6.0 (Normal) Range: 5.0-7.5 Specific Portis 1.016 (Normal) Range: 1.005-1.030 00-Bds-061738:15 MICROALBUMIN: CREATININE RATIO Comments: PATIENT WAS FASTINGPERFORMED BY: Aquantia70 [facility] [id number] (16587) AND (97505) Microalb/Creat Ratio 5.9 {mg/g_creat} (Normal) Range: 0.0-30.0 Microalbumin, Urine 4.4 ug/mL (Normal) Range: 0.0-17.0 Creatinine, Urine 74.2 mg/dL (Normal) Range: 15.0-278.0 78-Cur-083896:15 METABOLIC PANEL, COMPREHENSIVE Comments: PATIENT WAS FASTINGPERFORMED BY: YUPPTV Slvyhp6194 [facility] [id number] (92871) ALT (SGPT) 45 [iU]/L (Abnormal) Range: 0-32 AST (SGOT) 44 [iU]/L (Abnormal) Range: 0-40 Alkaline Phosphatase, S 99 [iU]/L (Normal) Range: 39-117 Bilirubin, Total 0.6 mg/dL (Normal) Range: 0.0-1.2 A/G Ratio 1.6 (Normal) Range: 1.1-2.5 Globulin, Total 2.8 g/dL (Normal) Range: 1.5-4.5 Albumin, Serum 4.6 g/dL (Normal) Range: 3.6-4.8 Protein, Total, Serum 7.4 g/dL (Normal) Range: 6.0-8.5 Calcium, Serum 10.1 mg/dL (Normal) Range: 8.6-10.2 Carbon Dioxide, Total 24 mmol/L (Normal) Range: 18-29 Chloride, Serum 100 mmol/L (Normal) Range: 97-108 Potassium, Serum 5.0 mmol/L (Normal) Range: 3.5-5.2 Sodium, Serum 141 mmol/L (Normal) Range: 134-144 BUN/Creatinine Ratio 18 (Normal) Range: 11-26 eGFR If Africn Am 93 mL/min/1.73 (Normal) eGFR If NonAfricn Am 80 mL/min/1.73 (Normal) Creatinine, Serum 0.76 mg/dL (Normal) Range: 0.57-1.00 BUN 14 mg/dL (Normal) Range: 8-27 Glucose, Serum 112 mg/dL (Abnormal) Range: 65-99 15-Zxh-655519:15 CBC WITH MANUAL DIFF Comments: PATIENT WAS FASTINGPERFORMED BY: LabCoEast Mountain HospitalEbymim2017 [facility] [id number] Information: [id number] (43854) Immature Grans (Abs) 0.0 {x10E3/uL} (Normal) Range: 0.0-0.1 Immature Granulocytes 0 % (Normal) Baso (Absolute) 0.0 {x10E3/uL} (Normal) Range: 0.0-0.2 Eos (Absolute) 0.2 {x10E3/uL} (Normal) Range: 0.0-0.4 Monocytes(Absolute) 0.7 {x10E3/uL} (Normal) Range: 0.1-0.9 Lymphs (Absolute) 2.1 {x10E3/uL} (Normal) Range: 0.7-3.1 Neutrophils (Absolute) 5.1 {x10E3/uL} (Normal) Range: 1.4-7.0 Basos 0 % (Normal) Eos 3 % (Normal) Monocytes 8 % (Normal) Lymphs 26 % (Normal) Neutrophils 63 % (Normal) Platelets 249 {x10E3/uL} (Normal) Range: 150-379 RDW 13.1 % (Normal) Range: 12.3-15.4 MCHC 34.8 g/dL (Normal) Range: 31.5-35.7 MCH 30.3 pg (Normal) Range: 26.6-33.0 MCV 87 fL (Normal) Range: 79-97 Hematocrit 42.8 % (Normal) Range: 34.0-46.6 Hemoglobin 14.9 g/dL (Normal) Range: 11.1-15.9 RBC 4.91 {x10E6/uL} (Normal) Range: 3.77-5.28 WBC 8.1 {x10E3/uL} (Normal) Range: 3.4-10.8 [id number] TSH ([id number]) Comments: PATIENT WAS FASTINGPERFORMED BY: [employer] [id number] TSH 0.819 {uIU/mL} (Normal) Range: 0.450-4.500 [id number] CALCIFIDIOL (02799) VIT D 25 Comments: PATIENT WAS FASTINGPERFORMED BY: [facility] [facility] [id number] Vitamin D, 25-Hydroxy 27.2 ng/mL (Abnormal) Range: 30.0-100.0 Comments: Vitamin D deficiency has been defined by the [place] [facility] and an Endocrine Society practice guideline as alevel of serum 25-OH vitamin D less than 20 ng/mL (1,2).The Endocrine Society went on to further define vitamin Dinsufficiency as a level between 21 and 29 ng/mL (2).1. IOM ([place] of Medicine). 2010. Dietary reference intakes for calcium and D. [place]: The National Academies Press.2. Deepak MF, Angelito ARANDA, Adan YEBOAH, et al. Evaluation, treatment, and prevention of vitamin D deficiency: an Endocrine Society clinical practice guideline. JCEM. 2010; 96(7):1911-30. 44-Hwu-065373:15 HEPATIC FUNCTION PANEL Comments: PATIENT WAS FASTINGPERFORMED BY: [facility]6370 [facility] [id number] (71996) Bilirubin, Direct 0.16 mg/dL (Normal) Range: 0.00-0.40 CA125 13.7 U/mL (Normal) Range: 0.0-34.0 :40 Comments: Laury ECLIA methodologyPerformed at: [address] [id number] Director: Bebo Salgado PhD, Phone: [phone] CEA 2.0 ng/mL (Normal) Range: 0.0-4.7 :40 Comments: Laury ECLIA methodology Nonsmokers <3.9Smokers <5.6 MISC . (Normal) Comments: Comments: HE4;OVARIAN TUMOR MARKER 37973, SERUM REFTest(s) Ordered: HE4;OVARIAN TUMOR MARKER 01123 :40 Comments: Human Epididymis Protein 4Reference RangeHE4 84 pmol/L 0 - 150Methodology:[employer] Groupire[employer] Enterprises EIATesting Performed Three Rivers HealthcareDirector: Dayron Thompson MD[address] [place] [address] 34-Baa-171615:08 CRE ECRCL 54.90 ml/min (Normal) GFRAA 92 mL/min (Normal) GFR 76 mL/min (Normal) CREAT 0.8 mg/dL (Normal) Range: 0.6-1.0 :02 HgA1C , Office (95646) HgA1C , Office 6.2 % (Normal) Range: 4.6 - 7.1 :02 Blood Glucose , Office (43063) Blood Glucose , Office 100 (Normal) 33-Lth-414355:27 Pathology Report Comments: PERFORMED BY: [facility]osyCYT [facility] Wdrfo64852 [facility] [id number] Information: [id number] See MATER Comments: Material submitted: .SHAVE SCALPClinician provided ICD-9:239.2 ; Neoplasms of unspecified nature of bone, soft tissue, and skinClinical history: Note (Normal) .PARTIAL FELL OFF IN SHOWER; RAISED SCALY AND NEUTRAL BASEDiagnosis:SHAVE SCALP:BENIGN LICHENOID KERATOSIS WI TH FEATURES ARE SUGGESTIVE OF SEBORRHEICKERATOSIS, INFLAMED.NO DYSPLASIA OR MALIGNANCY IDENTIFIED ON THE SECTIONS.12/26/2013Andrew dougherty tronically signed: .Mukul Conley MD, PhD, PathologistGross description: .1 Container, formalin-filled, labeled with patient ident ification.SHAVE SCALP:Received in formalin labeled DINAH Romo HICKMAN is a chadwick-yellowfragment of skin measuring 0.3 x 0.3 x 0.1 cm.The margin is markedwith black ink.It is bisected and submitted entirel y in a singlecassette./LMSLMS/LMSPathologist provided ICD-9:697.9, 702.11CPT .794829 27-Heg-029372:24 Vitamin D Hydroxy (93201) Comments: PATIENT WAS FASTINGPERFORMED BY: [facility]6370 [facility] [id number] Vitamin D, 25-Hydroxy 29.5 ng/mL (Abnormal) Range: 30.0-100.0 Comments: Vitamin D deficiency has been defined by the [place] of[place]icine and an Endocrine Society practice guideline as alevel of serum 25-OH vitamin D less than 20 ng/mL (1,2).The Endocrine Society went on to further define vitamin Dinsufficiency as a level between 21 and 29 ng/mL (2).1. IOM ([place] of Medicine). 2010. Dietary reference intakes for calcium and D. [place]: The National Academies Press.2. Deepak MF, Angelito ARANDA, Adan YEBOAH, et al. Evaluation, treatment, and prevention of vitamin D deficiency: an Endocrine Society clinical practice guideline. JCEM. 2010; 96(7):1911-30. :24 TSH (82140) Comments: PATIENT WAS FASTINGPERFORMED BY: [facility] Tkndny0097 [facility] [id number] TSH 0.868 {uIU/mL} (Normal) Range: 0.450-4.500 96-Huo-982796:24 MICROALBUMIN: CREATININE RATIO Comments: PATIENT WAS FASTINGPERFORMED BY: [facility] Bovgsg6984 [facility] [id number] ([id number]) AND (21364) Microalb/Creat Ratio 15.6 {mg/g_creat} (Normal) Range: 0.0-30.0 Microalbumin, Urine 9.8 ug/mL (Normal) Range: 0.0-17.0 Creatinine, Urine 62.8 mg/dL (Normal) Range: 15.0-278.0 :24 METABOLIC PANEL, COMPREHENSIVE Comments: PATIENT WAS FASTINGPERFORMED BY: [facility]6370 [facility] [id number] (41690) ALT (SGPT) 34 [iU]/L (Abnormal) Range: 0-32 AST (SGOT) 34 [iU]/L (Normal) Range: 0-40 Alkaline Phosphatase, S 81 [iU]/L (Normal) Range: 39-117 Bilirubin, Total 0.6 mg/dL (Normal) Range: 0.0-1.2 A/G Ratio 1.8 (Normal) Range: 1.1-2.5 Globulin, Total 2.6 g/dL (Normal) Range: 1.5-4.5 Albumin, Serum 4.6 g/dL (Normal) Range: 3.6-4.8 Protein, Total, Serum 7.2 g/dL (Normal) Range: 6.0-8.5 Calcium, Serum 9.3 mg/dL (Normal) Range: 8.6-10.2 Carbon Dioxide, Total 25 mmol/L (Normal) Range: 19-28 Chloride, Serum 102 mmol/L (Normal) Range: 97-108 Potassium, Serum 4.3 mmol/L (Normal) Range: 3.5-5.2 Sodium, Serum 140 mmol/L (Normal) Range: 134-144 BUN/Creatinine Ratio 17 (Normal) Range: 11-26 eGFR If Africn Am 105 mL/min/1.73 (Normal) eGFR If NonAfricn Am 91 mL/min/1.73 (Normal) Creatinine, Serum 0.64 mg/dL (Normal) Range: 0.57-1.00 BUN 11 mg/dL (Normal) Range: 8-27 Glucose, Serum 91 mg/dL (Normal) Range: 65-99 72-Nom-413424:24 CBC WITH MANUAL DIFF Comments: PATIENT WAS FASTINGPERFORMED BY: LabCoEast Mountain HospitalRucpay8376 [facility] [id number] Information: [id number] (83268) Immature Grans (Abs) 0.0 {x10E3/uL} (Normal) Range: 0.0-0.1 Immature Granulocytes 0 % (Normal) Range: 0-2 Baso (Absolute) 0.0 {x10E3/uL} (Normal) Range: 0.0-0.2 Eos (Absolute) 0.2 {x10E3/uL} (Normal) Range: 0.0-0.4 Monocytes(Absolute) 0.7 {x10E3/uL} (Normal) Range: 0.1-0.9 Lymphs (Absolute) 2.3 {x10E3/uL} (Normal) Range: 0.7-3.1 Neutrophils (Absolute) 5.4 {x10E3/uL} (Normal) Range: 1.4-7.0 Basos 0 % (Normal) Range: 0-3 Eos 2 % (Normal) Range: 0-5 Monocytes 8 % (Normal) Range: 4-12 Lymphs 27 % (Normal) Range: 14-46 Neutrophils 63 % (Normal) Range: 40-74 Platelets 245 {x10E3/uL} (Normal) Range: 155-379 RDW 13.1 % (Normal) Range: 12.3-15.4 MCHC 33.4 g/dL (Normal) Range: 31.5-35.7 MCH 30.3 pg (Normal) Range: 26.6-33.0 MCV 91 fL (Normal) Range: 79-97 Hematocrit 42.5 % (Normal) Range: 34.0-46.6 Hemoglobin 14.2 g/dL (Normal) Range: 11.1-15.9 RBC 4.69 {x10E6/uL} (Normal) Range: 3.77-5.28 WBC 8.6 {x10E3/uL} (Normal) Range: 3.4-10.8 20-Qeh-468705:24 LIPID PANEL (38151) Comments: PATIENT WAS FASTINGPERFORMED BY: sCoolTVEast Mountain HospitalXbvped4541 [facility] [id number] LDL/HDL Ratio 1.7 {ratio_units} (Normal) Range: 0.0-3.2 LDL Cholesterol Calc 76 mg/dL (Normal) Range: 0-99 HDL Cholesterol 45 mg/dL (Normal) Comments: According to ATP-III Guidelines, HDL-C >59 mg/dL is considered anegative risk factor for CHD. Triglycerides 157 mg/dL (Abnormal) Range: 0-149 VLDL Cholesterol Abran 31 mg/dL (Normal) Range: 5-40 Cholesterol, Total 152 mg/dL (Normal) Range: 100-199 99-Awg-068687:39 HgA1C , Office (10993) HgA1C , Office 6.1 % (Normal) Range: 4.6 - 7.1 79-Tuc-471215:39 Blood Glucose , Office (97984) Blood Glucose , Office 89 (Normal) 21-Iwb-266145:27 Microscopic Examination Comments: PATIENT WAS FASTINGPERFORMED BY: sCoolTV Aarngv9682 [facility] [id number] Bacteria None seen (Normal) Mucus Threads Present (Normal) Epithelial Cells (non renal) >10 {/hpf} (Abnormal) Range: 0 - 10 RBC 0-3 {/hpf} (Normal) Range: 0 - 3 WBC None seen {/hpf} (Normal) Range: 0 - 5 28-Gsk-463256:36 TSH (45531) Comments: PATIENT WAS FASTINGPERFORMED BY: sCoolTVEast Mountain HospitalUfbvmh4964 [facility] [id number] TSH 0.876 {uIU/mL} (Normal) Range: 0.450-4.500 09-Xvb-062191:36 URINALYSIS, W/ MICRO (41901) Comments: PATIENT WAS FASTINGPERFORMED BY: sCoolTVEast Mountain HospitalWsdrfe4578 [facility] [id number] Microscopic Examination See below: (Normal) Microscopic Examination MICRON (Normal) Comments: Microscopic follows if indicated. Nitrite, Urine Negative (Normal) Urobilinogen,Semi-Qn 0.2 mg/dL (Normal) Range: 0.0-1.9 Bilirubin Negative (Normal) Occult Blood Negative (Normal) Ketones Negative (Normal) Glucose Negative (Normal) Protein Negative (Normal) WBC Esterase Negative (Normal) Appearance Clear (Normal) Urine-Color Yellow (Normal) pH 6.5 (Normal) Range: 5.0-7.5 Specific Portis 1.015 (Normal) Range: 1.005-1.030 66-Dwv-136733:36 MICROALBUMIN: CREATININE RATIO Comments: PATIENT WAS FASTINGPERFORMED BY: YUPPTV Vmwpaf2924 [facility] [id number] ([id number]) AND (74856) Microalb/Creat Ratio 9.9 {mg/g_creat} (Normal) Range: 0.0-30.0 Microalbumin, Urine 6.6 ug/mL (Normal) Range: 0.0-17.0 Creatinine, Urine 66.8 mg/dL (Normal) Range: 15.0-278.0 50-Brc-096790:36 METABOLIC PANEL, COMPREHENSIVE Comments: PATIENT WAS FASTINGPERFORMED BY: sCoolTVEast Mountain HospitalLuekak7054 [facility] [id number] (74036) ALT (SGPT) 36 [iU]/L (Abnormal) Range: 0-32 AST (SGOT) 30 [iU]/L (Normal) Range: 0-40 Alkaline Phosphatase, S 92 [iU]/L (Normal) Range: 39-117 Bilirubin, Total 0.9 mg/dL (Normal) Range: 0.0-1.2 A/G Ratio 1.6 (Normal) Range: 1.1-2.5 Globulin, Total 2.9 g/dL (Normal) Range: 1.5-4.5 Albumin, Serum 4.5 g/dL (Normal) Range: 3.6-4.8 Protein, Total, Serum 7.4 g/dL (Normal) Range: 6.0-8.5 Calcium, Serum 9.9 mg/dL (Normal) Range: 8.6-10.2 Carbon Dioxide, Total 23 mmol/L (Normal) Range: 19-28 Chloride, Serum 102 mmol/L (Normal) Range: 97-108 Potassium, Serum 4.6 mmol/L (Normal) Range: 3.5-5.2 Sodium, Serum 140 mmol/L (Normal) Range: 134-144 BUN/Creatinine Ratio 24 (Normal) Range: 11-26 eGFR If Africn Am 107 mL/min/1.73 (Normal) eGFR If NonAfricn Am 93 mL/min/1.73 (Normal) Creatinine, Serum 0.62 mg/dL (Normal) Range: 0.57-1.00 BUN 15 mg/dL (Normal) Range: 8-27 Glucose, Serum 93 mg/dL (Normal) Range: 65-99 24-Kzd-754587:36 LIPID PANEL (50760) Comments: PATIENT WAS FASTINGPERFORMED BY: [facility]LiveUNC [facility] [id number] LDL/HDL Ratio 2.2 {ratio_units} (Normal) Range: 0.0-3.2 LDL Cholesterol Calc 94 mg/dL (Normal) Range: 0-99 VLDL Cholesterol Abran 38 mg/dL (Normal) Range: 5-40 HDL Cholesterol 43 mg/dL (Normal) Comments: According to ATP-III Guidelines, HDL-C >59 mg/dL is considered anegative risk factor for CHD. Triglycerides 188 mg/dL (Abnormal) Range: 0-149 Cholesterol, Total 175 mg/dL (Normal) Range: 100-199 07-Kea-341400:36 CBC WITH MANUAL DIFF Comments: PATIENT WAS FASTINGPERFORMED BY: [facility]6370 [facility] HospitalStateUNC [facility] [id number] Information: [id number] (02909) Immature Grans (Abs) 0.0 {x10E3/uL} (Normal) Range: 0.0-0.1 Immature Granulocytes 0 % (Normal) Range: 0-2 Baso (Absolute) 0.0 {x10E3/uL} (Normal) Range: 0.0-0.2 Eos (Absolute) 0.2 {x10E3/uL} (Normal) Range: 0.0-0.4 Monocytes(Absolute) 0.9 {x10E3/uL} (Normal) Range: 0.1-0.9 Lymphs (Absolute) 2.5 {x10E3/uL} (Normal) Range: 0.7-3.1 Neutrophils (Absolute) 4.8 {x10E3/uL} (Normal) Range: 1.4-7.0 Basos 0 % (Normal) Range: 0-3 Eos 2 % (Normal) Range: 0-5 Monocytes 10 % (Normal) Range: 4-12 Lymphs 30 % (Normal) Range: 14-46 Neutrophils 58 % (Normal) Range: 40-74 Platelets 227 {x10E3/uL} (Normal) Range: 155-379 RDW 12.8 % (Normal) Range: 12.3-15.4 MCHC 33.7 g/dL (Normal) Range: 31.5-35.7 MCH 30.2 pg (Normal) Range: 26.6-33.0 MCV 90 fL (Normal) Range: 79-97 Hematocrit 43.0 % (Normal) Range: 34.0-46.6 Hemoglobin 14.5 g/dL (Normal) Range: 11.1-15.9 RBC 4.80 {x10E6/uL} (Normal) Range: 3.77-5.28 WBC 8.3 {x10E3/uL} (Normal) Range: 3.4-10.8 31-Afx-173292:36 Vitamin D Hydroxy (24859) Comments: PATIENT WAS FASTINGPERFORMED BY: [facility]6370 [facility] [id number] Vitamin D, 25-Hydroxy 40.2 ng/mL (Normal) Range: 30.0-100.0 Comments: Vitamin D deficiency has been defined by the [place] of[place]icine and an Endocrine Society practice guideline as alevel of serum 25-OH vitamin D less than 20 ng/mL (1,2).The Endocrine Society went on to further define vitamin Dinsufficiency as a level between 21 and 29 ng/mL (2).1. IOM ([place] of Medicine). 2010. Dietary reference intakes for calcium and D. [place]: The National Academies Press.2. Deepak MF, Angelito ARANDA, Adan YEBOAH, et al. Evaluation, treatment, and prevention of vitamin D deficiency: an Endocrine Society clinical practice guideline. JCEM. 2010; 96(7):8981-30. 19-Jas-673489:55 HgA1C , Office (33358) HgA1C , Office 5.9 % (Normal) Range: 4.6 - 7.1 :55 Blood Glucose , Office (84528) Blood Glucose , Office 103 (Normal) :38 MICROALBUMIN: CREATININE RATIO Comments: PATIENT WAS FASTINGPERFORMED BY: [employer] [place] [id number] (30671) AND (41725) Microalb/Creat Ratio 4.6 {mg/g_creat} (Normal) Range: 0.0-30.0 Microalbumin, Urine 4.7 ug/mL (Normal) Range: 0.0-17.0 Creatinine, Urine 103.1 mg/dL (Normal) Range: 15.0-278.0 :38 URINALYSIS (21328) Comments: PATIENT WAS FASTINGPERFORMED BY: [facility]6370 [facility]UNC [facility] [id number] Microscopic Examination MICRON (Normal) Comments: Microscopic follows if indicated. Nitrite, Urine Negative (Normal) Urobilinogen,Semi-Qn 0.2 mg/dL (Normal) Range: 0.0-1.9 Bilirubin Negative (Normal) Occult Blood Negative (Normal) Ketones Negative (Normal) Glucose Negative (Normal) Protein Negative (Normal) WBC Esterase Negative (Normal) Appearance Clear (Normal) Urine-Color Yellow (Normal) pH 5.0 (Normal) Range: 5.0-7.5 Specific Portis 1.017 (Normal) Range: 1.005-1.030 :38 CALCIFEDIOL (69570) Comments: PATIENT WAS FASTINGPERFORMED BY: [facility]LiveUNC Health [facility] [id number] Vitamin D, 25-Hydroxy 21.0 ng/mL (Abnormal) Range: 30.0-100.0 Comments: Vitamin D deficiency has been defined by the [place] of[place]icine and an Endocrine Society practice guideline as alevel of serum 25-OH vitamin D less than 20 ng/mL (1,2).The Endocrine Society went on to further define vitamin Dinsufficiency as a level between 21 and 29 ng/mL (2).1. IOM ([place] of [place]). 2010. Dietary reference intakes for calcium and D. [place]: The National Academies Press.2. Deepak MF, Angelito [place], Adan YEBOAH, et al. Evaluation, treatment, and prevention of vitamin D deficiency: an Endocrine Society clinical practice guideline. JCEM. 2010; 96(7):1911-30. 31-Uvt-755484:38 CBC with manual diff Comments: PATIENT WAS FASTINGPERFORMED BY: LabCoEast Mountain HospitalDrvldu6639 [facility] [id number] Information: [id number] ORDER NO DRAW F EE (00306) Immature Grans (Abs) 0.0 {x10E3/uL} (Normal) Range: 0.0-0.1 Immature Granulocytes 0 % (Normal) Range: 0-2 Baso (Absolute) 0.0 {x10E3/uL} (Normal) Range: 0.0-0.2 Eos (Absolute) 0.1 {x10E3/uL} (Normal) Range: 0.0-0.4 Monocytes(Absolute) 0.6 {x10E3/uL} (Normal) Range: 0.1-0.9 Lymphs (Absolute) 2.0 {x10E3/uL} (Normal) Range: 0.7-3.1 Neutrophils (Absolute) 5.2 {x10E3/uL} (Normal) Range: 1.4-7.0 Basos 0 % (Normal) Range: 0-3 Eos 2 % (Normal) Range: 0-5 Monocytes 7 % (Normal) Range: 4-12 Lymphs 25 % (Normal) Range: 14-46 Neutrophils 66 % (Normal) Range: 40-74 Platelets 242 {x10E3/uL} (Normal) Range: 155-379 RDW 13.1 % (Normal) Range: 12.3-15.4 MCHC 34.2 g/dL (Normal) Range: 31.5-35.7 MCH 30.2 pg (Normal) Range: 26.6-33.0 MCV 89 fL (Normal) Range: 79-97 Hematocrit 44.5 % (Normal) Range: 34.0-46.6 Hemoglobin 15.2 g/dL (Normal) Range: 11.1-15.9 RBC 5.03 {x10E6/uL} (Normal) Range: 3.77-5.28 WBC 7.9 {x10E3/uL} (Normal) Range: 3.4-10.8 :38 TSH (50132) Comments: PATIENT WAS FASTINGPERFORMED BY: sCoolTVEast Mountain HospitalDapenl0804 [facility] [id number] TSH 0.812 {uIU/mL} (Normal) Range: 0.450-4.500 :38 Metabolic Panel, Comprehensive Comments: PATIENT WAS FASTINGPERFORMED BY: sCoolTVEast Mountain HospitalSnfdxv9561 [facility] [id number] (45655) ALT (SGPT) 41 [iU]/L (Abnormal) Range: 0-32 AST (SGOT) 41 [iU]/L (Abnormal) Range: 0-40 Alkaline Phosphatase, S 87 [iU]/L (Normal) Range: 47-112 Bilirubin, Total 0.7 mg/dL (Normal) Range: 0.0-1.2 A/G Ratio 1.6 (Normal) Range: 1.1-2.5 Globulin, Total 3.0 g/dL (Normal) Range: 1.5-4.5 Albumin, Serum 4.8 g/dL (Normal) Range: 3.6-4.8 Protein, Total, Serum 7.8 g/dL (Normal) Range: 6.0-8.5 Calcium, Serum 9.9 mg/dL (Normal) Range: 8.6-10.2 Carbon Dioxide, Total 21 mmol/L (Normal) Range: 19-28 Chloride, Serum 102 mmol/L (Normal) Range: 97-108 Potassium, Serum 4.0 mmol/L (Normal) Range: 3.5-5.2 Sodium, Serum 140 mmol/L (Normal) Range: 134-144 BUN/Creatinine Ratio 30 (Abnormal) Range: 11-26 eGFR If Africn Am 103 mL/min/1.73 (Normal) eGFR If NonAfricn Am 90 mL/min/1.73 (Normal) Creatinine, Serum 0.69 mg/dL (Normal) Range: 0.57-1.00 BUN 21 mg/dL (Normal) Range: 8-27 Glucose, Serum 104 mg/dL (Abnormal) Range: 65-99 02-Rzv-778783:38 Lipid Panel (87335) Comments: PATIENT WAS FASTINGPERFORMED BY: [facility]6370 [facility] [id number] LDL/HDL Ratio 2.8 {ratio_units} (Normal) Range: 0.0-3.2 LDL Cholesterol Calc 135 mg/dL (Abnormal) Range: 0-99 VLDL Cholesterol Abran 45 mg/dL (Abnormal) Range: 5-40 HDL Cholesterol 49 mg/dL (Normal) Comments: According to ATP-III Guidelines, HDL-C >59 mg/dL is considered anegative risk factor for CHD. Triglycerides 225 mg/dL (Abnormal) Range: 0-149 Cholesterol, Total 229 mg/dL (Abnormal) Range: 100-199 :59 FECAL OCCULT HGB ASSAY- tubes sent home (27365) FECAL OCCULT HGB ASSAY, QUAL, 1-3 SIMULTANEOU negative (Normal) 56-Gge-05960:21 H-Pylori IGA,IGG,IGM Comments: PATIENT NOT FASTINGPERFORMED BY: [facility]6370 [facility] [id number] Information: [id number] (87933) H. pylori, IgM Abs 2.9 {units} (Normal) Range: 0.0-8.9 Comments: Negative <9.0 Equivocal 9.0 - 11.0 Positive >11.0 . This test was developed and its performance characteristics determined [facility]. It has not been cleared or approved by the Food and Drug Administration. Results of this test are for investigational purposes only. The result should not be used as a diagnostic procedure without confi rmation of the diagnosis by another medically diagnostic product or procedure. . Please note reference interval change H. pylori, IgA Abs 1.4 {units} (Normal) Range: 0.0-8.9 Comments: Negative <9.0 Equivocal 9.0 - 11.0 Positive >11.0 . Please note reference interval change H. pylori, IgG Abs <0.9 U/mL (Normal) Range: 0.0-0.8 Comments: Negative <0.9 Indeterminate 0.9 - 1.0 Positive >1.0 :08 Blood Glucose , Office (78967) Blood Glucose , Office 85 (Normal) :08 HgA1C , Office (04256) HgA1C , Office 6.0 % (Normal) Range: 4.6 - 7.1 :28 BILAT SCRN DIGITAL & CAD Radiology Report See Note Comments: MAMMOGRAPHY - BILATERAL SCREENING REASON FOR EXAM: Female, 67 years old. Routine annual screeningexamination. PERTINENT HISTORY: Non-contributory. TECHNIQUE: Digital examination. Med iolateral ob (Normal) lique (MLO) andcraniocaudad (CC) views of both breasts were obtained. CAD: CAD wasperformed on this study. COMPARISON: Comparison is made with prior study dated January 05, 2012 andJune 18, 2010. FINDINGS:The breast composition is composed of scattered fibroglandular tissuesranging from 25% to 50% of the breast. There are no dominant masses or suspicious calcificat ions. There isasymmetry of breast tissue where more breast tissue is seen in the leftbreast as compared to right side. This is unchanged and most likelyrepresents asymmetrical dysplasia. No other sign ificant abnormalities are identified. There has been nosignificant change since the prior study. IMPRESSION:Stable bilateral screening mammogram. Yearly follow-up re commended. (A) ASSESSMENT CATEGORY:BIRADS Category 2: Benign finding(s). A letter regarding these resultswill be sent to the patient by the facility within 30 days . Approximately 10% of breast cancers are not detected by mammography. Anormal mammogram should not delay biopsy of a clinically suspiciousabnormality. Signed:Kale Sanders M.D.February 15, 2013 at 9 :58:29 AM [id number] Signed GP/GP If you are the referring physician and would like to consult with theradiologist who provided this interpretation, please contact Jamie Blount at [phone]. If this radiologist is unavailable, youwill be directed to another radiologist to assist. If you are a patient with a question regarding this report, pleasecontactyour referring ysician directly. Professional Interpretation Provided By: [employer], Phone , These documents contain legally protected and confidential healthinformation intended only f or the use of the individual or entity namedabove. If you are not the intended recipient, you are hereby notifiedthatany disclosure, copying, distribution, or other use of these documents isstrictly pro hibited. If you have received this information in error,pleasenotify the sender immediately and arrange for the return or destructionofthese documents. Dictated on 02/15/13 0958 by Iam Sanders MD eleTranscribed on 02/15/13 1025 by ITS IMPORTSign by Kale Sanders MD on 02/15/13 1026 Sign by: Kale Sanders MD DDIMQ 0.38 Range: 0.22-0.48 270316: {FEUug/mL} Comments: NORMAL D-Dimer level indicates no DVT or PE. 18 (Normal) :13 HgA1C , Office (46740) HgA1C , Office 5.8 % (Normal) Range: 4.6 - 7.1 :13 Blood Glucose , Office (69205) Blood Glucose , Office 96 (Normal) 58-Lkv-642507:59 THYROID Radiology Report See Note Comments: PROCEDURE: THYROID ULTRASOUND REASON FOR EXAM: Female, 67 years old. Multiple thyroid hypodensitiesseen on CT scan of the thorax. 04/06/2012. TECHNIQUE: Ultrasound evaluation of the thyroid was pe (Normal) rformed withreal-time and static uriarte-scale imaging. COMPARISON: CT scan of the thorax 04/06/2012. FINDINGS: RIGHT LOBE: The right lobe of the thyroid gland measures 4.0 x 1.5 x 1.1cm. There is a homo geneous echotexture. There is a 6 x 5 x 5 mm cystwithin the right thyroid lobe. Furthermore, there is a 7 x 8 x 4 mmsolidnodule within the interpolar portion of right thyroid lobe LEFT LOBE: The lef t lobe of the thyroid gland measures 3.6 x 1.3 x 0.9cmcm. There is a homogeneous echotexture. There are no demonstrated solid,cystic or complex lesions. ISTHMUS: The isthmus measures 2.3 mm. IMPRESSI ON:Simple 6-mm right thyroid lobe cyst.8mm solid nodule in the interpolar portion of the right thyroid lobe. Signed:Lashon Richardson M.D.November 22, 2012 at 5:48:10 PM [id number] Signed M Stephanie/OLY If you are the referring physician and would like to consult with theradiologist who provided this interpretation, please contact Jamie Paz at [phone]. If this radiologist is unavailab le, you will bedirected to another radiologist to assist. If you are a patient with a question regarding this report, pleasecontactyour referring physician directly. Professional Interpretation Provided By: [employer], Phone , These documents contain legally protected and confidential healthinformation intended only for the use of the individual or entity namedabove. If you are not the intended recipient, you are hereby notifiedthatany disclosure, copying, distribution, or other use of these documents isstrictly prohibited. If you have received this information in erro r,pleasenotify the sender immediately and arrange for the return or destructionofthese documents. Dictated on 11/22/121029 by LASHON RICHARDSONTranscribed on 11/22/121749 by ITS IMPORTSign by LASHON RICHARDSON on 11/22/121750 Sign by: LASHON RICHARDSON CCP Antibodies 3 {units} Comments: PATIENT NOT FASTINGPERFORMED BY: sCoolTVMiguel Ville 9702670 [facility] [id number] BY: [address] [id number] 310:59 IgG/IgA (Normal) Range: 0-19 Comments: Negative <20 Weak positive 20 - 39 Moderate positive 40 - 59 Strong positive >59 Reverse T3, Serum 22.1 ng/dL Comments: PATIENT NOT FASTINGPERFORMED BY: sCoolTV[address] [id number] BY: [address] [id number] 310:59 (Normal) Range: 9.2-24.1 88-Zsa-049555:59 Anti-TPO Antibody Comments: PATIENT NOT FASTINGPERFORMED BY: sCoolTVMiguel [place] 9702670 [facility] [id number] BY: [address] [id number] (22096) Thyroid Peroxidase (TPO) Ab <6 {IU/mL} (Normal) Range: 0-34 33-Nvx-870617:59 T4, FREE (THYROXINE) Comments: PATIENT NOT FASTINGPERFORMED BY: [place]VMig[place] 9702670 [facility] [id number] BY: [address] [id number] (69538) T4,Free(Direct) 1.08 ng/dL (Normal) Range: 0.82-1.77 57-Rmz-836858:59 T3, FREE (TRIDOTHYRONINE) Comments: PATIENT NOT FASTINGPERFORMED BY: sCoolTV[address] [id number] BY: [address] [id number] (81402) Triiodothyronine,Free,Serum 3.7 pg/mL (Normal) Range: 2.0-4.4 84-Bbe-547835:59 CALCIFIDIOL (24374) VIT D Comments: PATIENT NOT FASTINGPERFORMED BY: Jigsaw [facility] Ojpcpj3061 Junior RoadDublin [place] [id number] BY: sCoolTV[address] [id number] 25 Vitamin D, 25-Hydroxy 16.1 ng/mL (Abnormal) Range: 30.0-100.0 Comments: Vitamin D deficiency has been defined by the [place] [facility] and an Endocrine Society practice guideline as alevel of serum 25-OH vitamin D less than 20 ng/mL (1,2).The Endocrine Society went on to further define vitamin Dinsufficiency as a level between 21 and 29 ng/mL (2).1. IOM ([place] of Medicine). 2010. Dietary reference intakes for calcium and D. [place]: The National Academies Press.2. Deepak MF, Angelito ARANDA, Adan YEBOAH, et al. Evaluation, treatment, and prevention of vitamin D deficiency: an Endocrine Society clinical practice guideline. JCEM. 2010; 96(7):1911-30. 83-Xov-553616:59 Folate (04396) Comments: PATIENT NOT FASTINGPERFORMED BY: Jigsaw [facility] Cjbsfx7431 Junior RoadDublin [place] [id number] BY: sCoolTV[address] [id number] Folate (Folic Acid), Serum >19.9 ng/mL (Normal) Comments: A serum folate concentration of less than 3.1 ng/mL isconsidered to represent clinical deficiency. 94-Evx-250443:59 VITAMIN B-12 Comments: PATIENT NOT FASTINGPERFORMED BY: CB [facility] Jbrxcf4414 Junior RoadDublin [place] [id number] BY: Tethis[address] [id number] (CYANOCOBALAMIN) (31769) Vitamin B12 621 pg/mL (Normal) Range: 211-946 15-Aix-574986:59 SED RATE ERYTHROCYTE Comments: PATIENT NOT FASTINGPERFORMED BY: CB [facility] Eacwio6256 Junior RoadDublin [place] [id number] BY: [address] [id number] (15906) Sedimentation Rate-Westergren 6 mm/h (Normal) Range: 0-40 10-Emi-480985:59 C-REACTIVE PROTEIN Comments: PATIENT NOT FASTINGPERFORMED BY: [place] 2913770 [facility] [id number] BY: [address] [id number] (33475) C-Reactive Protein, Quant 1.2 mg/L (Normal) Range: 0.0-4.9 97-Beo-229354:59 TSH (70031) Comments: PATIENT NOT FASTINGPERFORMED BY: Lab[address] [id number] BY: [address] [id number] TSH 1.350 {uIU/mL} (Normal) Range: 0.450-4.500 58-Tvz-959186:59 RHEUMATOID FACTOR-QUANT Comments: PATIENT NOT FASTINGPERFORMED BY: [place] 2913770 [facility] [id number] BY: [address] [id number] (41330) RA Latex Turbid. 9.1 {IU/mL} (Normal) Range: 0.0-13.9 68-Dkb-152412:59 KRISTEL (ANTINUCLEAR ANTIBODY) Comments: PATIENT NOT FASTINGPERFORMED BY: LabKathryn Ville 9148270 [facility] [id number] BY: [address] [id number] (56534) KRISTEL Direct Negative (Normal) 81-Bfb-226817:59 CBC WITH MANUAL DIFF Comments: PATIENT NOT FASTINGPERFORMED BY: [place] 2913770 [facility] [id number] BY: [address] [id number] (91232) Immature Grans (Abs) 0.0 {x10E3/uL} (Normal) Range: 0.0-0.1 Immature Granulocytes 0 % (Normal) Range: 0-2 Baso (Absolute) 0.0 {x10E3/uL} (Normal) Range: 0.0-0.2 Eos (Absolute) 0.3 {x10E3/uL} (Normal) Range: 0.0-0.4 Monocytes(Absolute) 0.6 {x10E3/uL} (Normal) Range: 0.1-1.0 Lymphs (Absolute) 2.4 {x10E3/uL} (Normal) Range: 0.7-4.5 Neutrophils (Absolute) 4.9 {x10E3/uL} (Normal) Range: 1.8-7.8 Basos 0 % (Normal) Range: 0-3 Eos 3 % (Normal) Range: 0-7 Monocytes 7 % (Normal) Range: 4-13 Lymphs 29 % (Normal) Range: 14-46 Neutrophils 61 % (Normal) Range: 40-74 Platelets 232 {x10E3/uL} (Normal) Range: 140-415 RDW 12.5 % (Normal) Range: 12.3-15.4 MCHC 33.1 g/dL (Normal) Range: 31.5-35.7 MCH 30.2 pg (Normal) Range: 26.6-33.0 MCV 91 fL (Normal) Range: 79-97 Hematocrit 43.2 % (Normal) Range: 34.0-46.6 Hemoglobin 14.3 g/dL (Normal) Range: 11.1-15.9 RBC 4.74 {x10E6/uL} (Normal) Range: 3.77-5.28 WBC 8.2 {x10E3/uL} (Normal) Range: 4.0-10.5 73-Bqp-299184:59 METABOLIC PANEL, Comments: PATIENT NOT FASTINGPERFORMED BY: CB [facility] Thwppm2506 [facility] [id number] BY: BN [facility] [address] [id number] [facility] (09959) ALT (SGPT) 31 [iU]/L (Normal) Range: 0-32 AST (SGOT) 31 [iU]/L (Normal) Range: 0-40 Alkaline Phosphatase, S 103 [iU]/L (Normal) Range: 25-165 Bilirubin, Total 0.7 mg/dL (Normal) Range: 0.0-1.2 A/G Ratio 1.7 (Normal) Range: 1.1-2.5 Globulin, Total 2.7 g/dL (Normal) Range: 1.5-4.5 Albumin, Serum 4.7 g/dL (Normal) Range: 3.6-4.8 Calcium, Serum 9.4 mg/dL (Normal) Range: 8.6-10.2 Protein, Total, Serum 7.4 g/dL (Normal) Range: 6.0-8.5 Carbon Dioxide, Total 21 mmol/L (Normal) Range: 20-32 Chloride, Serum 104 mmol/L (Normal) Range: 97-108 Potassium, Serum 4.0 mmol/L (Normal) Range: 3.5-5.2 Sodium, Serum 141 mmol/L (Normal) Range: 134-144 BUN/Creatinine Ratio 25 (Normal) Range: 11-26 eGFR If Africn Am 108 mL/min/1.73 (Normal) eGFR If NonAfricn Am 94 mL/min/1.73 (Normal) BUN 15 mg/dL (Normal) Range: 8-27 Creatinine, Serum 0.60 mg/dL (Normal) Range: 0.57-1.00 Glucose, Serum 98 mg/dL (Normal) Range: 65-99 :36 HgA1C , Office (36533) HgA1C , Office 5.7 % (Normal) Range: 4.6 - 7.1 :36 Blood Glucose , Office (40011) Blood Glucose , Office 81 (Normal) 28-Bmo-521248:48 TSH (96398) Comments: PATIENT WAS FASTINGPERFORMED BY: [facility] Yflkhb9338 [facility] [id number] TSH 1.140 {uIU/mL} (Normal) Range: 0.450-4.500 :48 LIPID PANEL (80428) Comments: PATIENT WAS FASTINGPERFORMED BY: [facility] Kyisfy2423 [facility] [id number] LDL/HDL Ratio 2.0 {ratio_units} (Normal) Range: 0.0-3.2 LDL Cholesterol Calc 100 mg/dL (Abnormal) Range: 0-99 VLDL Cholesterol Abran 29 mg/dL (Normal) Range: 5-40 HDL Cholesterol 51 mg/dL (Normal) Comments: According to ATP-III Guidelines, HDL-C >59 mg/dL is considered anegative risk factor for CHD. Cholesterol, Total 180 mg/dL (Normal) Range: 100-199 Triglycerides 143 mg/dL (Normal) Range: 0-149 22-Mwq-381097:48 MICROALBUMIN: CREATININE RATIO Comments: PATIENT WAS FASTINGPERFORMED BY: Aquantia[address] [facility] [id number] (71486) AND (73605) Microalb/Creat Ratio 12.0 {mg/g_creat} (Normal) Range: 0.0-30.0 Microalbumin, Urine 10.9 ug/mL (Normal) Range: 0.0-17.0 Creatinine, Urine 90.7 mg/dL (Normal) Range: 15.0-278.0 63-Rze-281472:48 METABOLIC PANEL, COMPREHENSIVE Comments: PATIENT WAS FASTINGPERFORMED BY: YUPPTV Matghm7007 [facility] [id number] (48294) ALT (SGPT) 31 [iU]/L (Normal) Range: 0-32 Comments: Please note reference interval change AST (SGOT) 30 [iU]/L (Normal) Range: 0-40 Alkaline Phosphatase, S 96 [iU]/L (Normal) Range: 25-165 Bilirubin, Total 0.6 mg/dL (Normal) Range: 0.0-1.2 A/G Ratio 1.6 (Normal) Range: 1.1-2.5 Globulin, Total 2.9 g/dL (Normal) Range: 1.5-4.5 Albumin, Serum 4.6 g/dL (Normal) Range: 3.6-4.8 Protein, Total, Serum 7.5 g/dL (Normal) Range: 6.0-8.5 Calcium, Serum 9.9 mg/dL (Normal) Range: 8.6-10.2 Carbon Dioxide, Total 25 mmol/L (Normal) Range: 20-32 Chloride, Serum 103 mmol/L (Normal) Range: 97-108 Potassium, Serum 4.3 mmol/L (Normal) Range: 3.5-5.2 Sodium, Serum 140 mmol/L (Normal) Range: 134-144 BUN/Creatinine Ratio 20 (Normal) Range: 11-26 eGFR If Africn Am 97 mL/min/1.73 (Normal) eGFR If NonAfricn Am 84 mL/min/1.73 (Normal) Creatinine, Serum 0.74 mg/dL (Normal) Range: 0.57-1.00 BUN 15 mg/dL (Normal) Range: 8-27 Glucose, Serum 98 mg/dL (Normal) Range: 65-99 92-Rhr-559137:48 CBC WITH MANUAL DIFF Comments: PATIENT WAS FASTINGPERFORMED BY: LabMclaren Flint6370 [facility] [id number] Information: [id number] (54273) Immature Grans (Abs) 0.0 {x10E3/uL} (Normal) Range: 0.0-0.1 Immature Granulocytes 0 % (Normal) Range: 0-2 Baso (Absolute) 0.0 {x10E3/uL} (Normal) Range: 0.0-0.2 Eos (Absolute) 0.3 {x10E3/uL} (Normal) Range: 0.0-0.4 Monocytes(Absolute) 0.7 {x10E3/uL} (Normal) Range: 0.1-1.0 Lymphs (Absolute) 2.1 {x10E3/uL} (Normal) Range: 0.7-4.5 Neutrophils (Absolute) 4.6 {x10E3/uL} (Normal) Range: 1.8-7.8 Basos 0 % (Normal) Range: 0-3 Eos 4 % (Normal) Range: 0-7 Monocytes 9 % (Normal) Range: 4-13 Lymphs 27 % (Normal) Range: 14-46 Neutrophils 60 % (Normal) Range: 40-74 Platelets 232 {x10E3/uL} (Normal) Range: 140-415 RDW 12.3 % (Normal) Range: 12.3-15.4 MCHC 33.7 g/dL (Normal) Range: 31.5-35.7 MCH 30.6 pg (Normal) Range: 26.6-33.0 MCV 91 fL (Normal) Range: 79-97 Hematocrit 44.5 % (Normal) Range: 34.0-46.6 Hemoglobin 15.0 g/dL (Normal) Range: 11.1-15.9 RBC 4.90 {x10E6/uL} (Normal) Range: 3.77-5.28 WBC 7.8 {x10E3/uL} (Normal) Range: 4.0-10.5 :41 HgA1C , Office (83414) HgA1C , Office 6.0 % (Normal) Range: 4.6 - 7.1 :41 Blood Glucose , Office (74742) Blood Glucose , Office 94 (Normal) :46 MYOCARD PERF STRESS/REST MULT Radiology Report See Note (Normal) Comments: MYOCARDIAL PERFUSION SCAN TECHNIQUEThe patient was injected with 11.8 mCi of Tc99m Cardiolite andsubsequently rest SPECT Cardiolite nuclear imaging was obtained in thehorizontal long, vertical long and short axes views. The patientunderwent pharmacologic (regadenoson) evaluation with a peak heart rateof 111 beats per minute (73% predicted maximum heart rate) with a peakblood pressure of 168/100 mmHg. The patient was injected with 33.5 mCiof Tc99m Cardiolite and subsequently stress SPECT Cardiolite nuclearimaging was obtained in the horizontal long, vertical long and short axesviews. Gated Cardiol ite study at peak stress was obtained. INTERPRETATIONRest and stress SPECT Cardiolite nuclear imaging demonstrate a small areaof subtle diminished tracer uptake near the lateral apical segmentswithout s ignificant change. There is end systolic thickening andbrightening. The gated Cardiolite study demonstrates myocardialthickening and inward wall motion. The reported LVEF is 65%. Theaforementioned f indings appear compatible with the effects of physiologicapical thinning. There are no myocardial perfusion changes considereddiagnostic for stress induced myocardial ischemia or previous myocardialinj ury/infarction. IMPRESSION1. Rest and stress SPECT Cardiolite nuclear imaging demonstratemyocardial perfusion changes appearing compatible with the effects ofphysiological apical thinning with no myoca rdial perfusion changesconsidered diagnostic for stress induced myocardial ischemia or previousmyocardial injury/infarction.2. The gated Cardiolite study reports an LVEF of 65%. Dictated on 04/11/12 1 019 by Augusto Quan MDTranscribed on 04/11/12 1046 by Chau DOWELL by Augusto Quan MD on 04/11/12 1801 Sign by: Augusto Quan MD 3-Brp-703831:21 CHEST WITH CONTRAST Radiology Report See Note Comments: PROCEDURE: CT CHEST WITH CONTRAST REASON FOR EXAM: Female, 66 years old. Short of breath. Difficultyswallowing. RADIATION DOSAGE (If Supplied By Facility): CTDIvol = ( 51 ) mGy, DLP =(952 ) mGycm (Normal) TECHNIQUE: High resolution transaxial imaging was performed followingintravenous administration of 75 ml of Isovue 370 contrast material. COMPARISON: None. FINDINGS: There is patchy bilateral atelec tasis throughout both lungs. There is nodemonstrated pleural abnormality. Normal heart and pericardium. Normal mediastinum. Normal hilar regions. There are no demonstratedpulmonary emboli. There is atherosclerotic tortuosity of the aortic archand descending thoracic aorta. There are multi-level degenerative changes of the thoracic spine. There is a moderate sized title hernia present. There are s mallindeterminate hypodensities present in both thyroid lobes. These measureless than 5 mm each. These are most compatible of multinodular goiter. IMPRESSION:Patchy bilateral atelectasis. No overt pu lmonary embolism. Signed:Eduard Faulkner M.D.April 06, 2012 at 2:30:12 PM [phone] Signed BRENT/BRENT If you are the referring physician and would like to consult with theradiolog ist who provided this interpretation, please contact Jamie Duval at . If this radiologist is unavailable,youwill be directed to another radiologist to assist. If you are a patie nt with a question regarding this report, pleasecontactyour referring physician directly. Professional Interpretation Provided By: [employer], Phone , These documents cont ain legally protected and confidential healthinformation intended only for the use of the individual or entity namedabove. If you are not the intended recipient, you are hereby notifiedthatany disclosur e, copying, distribution, or other use of these documents isstrictly prohibited. If you have received this information in error,pleasenotify the sender immediately and arrange for the return or destruct ionofthese documents. Dictated on 04/06/12 1355 by Eduard Faulkner MDTranscribed on 04/06/121434 by ITS IMPORTSign by Eduard Faulkner MD on 04/06/12 1436 Sign by: Eduard Faulkner MD DDIMQ 0.36 {FEUug/mL} Range: 0.22-0.48 211:44 (Normal) Comments: NORMAL D-Dimer level indicates no DVT or PE. Mononucleosis Test, Negative Comments: PATIENT NOT FASTINGPERFORMED BY: YUPPTV Xefmrw7917 [facility] [id number] 211:44 Qual (Normal) Comments: The sensitivity of Heterophile antibody testing is 80-90%.Xin Curtis IgM testing offers higher sensitivity. 1-Ahc-315943:44 TSH (93181) Comments: PATIENT NOT FASTINGPERFORMED BY: sCoolTVEast Mountain HospitalHvndzn2796 [facility] [id number] TSH 1.130 {uIU/mL} (Normal) Range: 0.450-4.500 6-Ckz-255025:44 METABOLIC PANEL, COMPREHENSIVE Comments: PATIENT NOT FASTINGPERFORMED BY: YUPPTVEast Mountain HospitalTkbezc8726 [facility] [id number] (23225) ALT (SGPT) 30 [iU]/L (Normal) Range: 0-40 AST (SGOT) 28 [iU]/L (Normal) Range: 0-40 Alkaline Phosphatase, S 96 [iU]/L (Normal) Range: 25-165 Bilirubin, Total 0.5 mg/dL (Normal) Range: 0.0-1.2 A/G Ratio 1.6 (Normal) Range: 1.1-2.5 Globulin, Total 2.9 g/dL (Normal) Range: 1.5-4.5 Albumin, Serum 4.5 g/dL (Normal) Range: 3.6-4.8 Protein, Total, Serum 7.4 g/dL (Normal) Range: 6.0-8.5 Calcium, Serum 9.6 mg/dL (Normal) Range: 8.6-10.2 Carbon Dioxide, Total 20 mmol/L (Normal) Range: 20-32 Chloride, Serum 104 mmol/L (Normal) Range: 97-108 Potassium, Serum 4.4 mmol/L (Normal) Range: 3.5-5.2 Sodium, Serum 140 mmol/L (Normal) Range: 134-144 BUN/Creatinine Ratio 23 (Normal) Range: 11-26 eGFR If Africn Am 109 mL/min/1.73 (Normal) eGFR If NonAfricn Am 95 mL/min/1.73 (Normal) Creatinine, Serum 0.60 mg/dL (Normal) Range: 0.57-1.00 BUN 14 mg/dL (Normal) Range: 8-27 Glucose, Serum 74 mg/dL (Normal) Range: 65-99 4-Qfw-761889:44 CBC WITH MANUAL DIFF (04020) Comments: PATIENT NOT FASTINGPERFORMED BY: LabCoEast Mountain HospitalDgaunv8532 [facility] [id number] Immature Grans (Abs) 0.0 {x10E3/uL} (Normal) Range: 0.0-0.1 Immature Granulocytes 0 % (Normal) Range: 0-2 Baso (Absolute) 0.0 {x10E3/uL} (Normal) Range: 0.0-0.2 Eos (Absolute) 0.5 {x10E3/uL} (Abnormal) Range: 0.0-0.4 Monocytes(Absolute) 0.7 {x10E3/uL} (Normal) Range: 0.1-1.0 Lymphs (Absolute) 2.4 {x10E3/uL} (Normal) Range: 0.7-4.5 Neutrophils (Absolute) 4.9 {x10E3/uL} (Normal) Range: 1.8-7.8 Basos 1 % (Normal) Range: 0-3 Eos 6 % (Normal) Range: 0-7 Monocytes 8 % (Normal) Range: 4-13 Lymphs 28 % (Normal) Range: 14-46 Neutrophils 57 % (Normal) Range: 40-74 Platelets 261 {x10E3/uL} (Normal) Range: 140-415 RDW 12.8 % (Normal) Range: 12.3-15.4 MCHC 34.7 g/dL (Normal) Range: 31.5-35.7 MCH 30.6 pg (Normal) Range: 26.6-33.0 MCV 88 fL (Normal) Range: 79-97 Hematocrit 42.7 % (Normal) Range: 34.0-46.6 Hemoglobin 14.8 g/dL (Normal) Range: 11.1-15.9 RBC 4.84 {x10E6/uL} (Normal) Range: 3.77-5.28 WBC 8.6 {x10E3/uL} (Normal) Range: 4.0-10.5 1-Xux-220317:25 Urinalysis, Office (89871) UA - BILIRUBIN Negative (Normal) UA - BLOOD Hemolyzed Small (Normal) UA - GLUCOSE Negative (Normal) UA - KETONES Negative mg/dL (Normal) UA - LEUKOCYTE ESTERASE Negative (Normal) UA - NITRITE Negative (Normal) UA - PH 8.0 (Normal) UA - PROTEIN Negative mg/dL (Normal) UA - SPECIFIC GRAVITY 1.015 (Normal) URINE UROBILINGN EDITH TIMED Normal mg/dL (Normal) 8-Trr-433704:15 URINE ENRIQUE CULTURE-EDITH COL Comments: PATIENT NOT FASTINGPERFORMED BY: [facility]ooSaint [facility] [id number] Information: SRC:UR [id number] COUNT (96901) Result 1 MUG (Normal) Comments: Mixed urogenital floraGreater than 100,000 colony forming units per mL Urine Culture,Comprehensive Final report (Normal) 4-Vop-624219:16 ENRIQUE CULTURE-OTHER (60486) Comments: PATIENT NOT FASTINGPERFORMED BY: YUPPTV OneRoofSaint Luke's [facility] [id number] Information: SRC:THRT [id number] Result 1 RRF (Normal) Comments: Routine respiratory corina Upper Respiratory Culture Final report (Normal) 3-Wov-671308:24 Rapid Strep Test, Office (95548) Rapid Strep Test, Office Negative (Normal) 22-Mcf-710014:52 CBC with manual diff Comments: PATIENT NOT FASTINGPERFORMED BY: [facility]6370 [facility] [id number] Information: [id number] (84163) Immature Grans (Abs) 0.0 {x10E3/uL} (Normal) Range: 0.0-0.1 Immature Granulocytes 0 % (Normal) Range: 0-2 Baso (Absolute) 0.0 {x10E3/uL} (Normal) Range: 0.0-0.2 Eos (Absolute) 0.3 {x10E3/uL} (Normal) Range: 0.0-0.4 Monocytes(Absolute) 0.5 {x10E3/uL} (Normal) Range: 0.1-1.0 Lymphs (Absolute) 2.5 {x10E3/uL} (Normal) Range: 0.7-4.5 Neutrophils (Absolute) 5.1 {x10E3/uL} (Normal) Range: 1.8-7.8 Basos 1 % (Normal) Range: 0-3 Eos 3 % (Normal) Range: 0-7 Monocytes 6 % (Normal) Range: 4-13 Lymphs 30 % (Normal) Range: 14-46 Neutrophils 60 % (Normal) Range: 40-74 Platelets 245 {x10E3/uL} (Normal) Range: 140-415 RDW 13.3 % (Normal) Range: 12.3-15.4 MCHC 34.7 g/dL (Normal) Range: 31.5-35.7 MCH 30.5 pg (Normal) Range: 26.6-33.0 MCV 88 fL (Normal) Range: 79-97 Hematocrit 42.1 % (Normal) Range: 34.0-46.6 Hemoglobin 14.6 g/dL (Normal) Range: 11.1-15.9 RBC 4.78 {x10E6/uL} (Normal) Range: 3.77-5.28 WBC 8.5 {x10E3/uL} (Normal) Range: 4.0-10.5 :52 Metabolic Panel, Comprehensive Comments: PATIENT NOT FASTINGPERFORMED BY: LabMclaren Flint6370 [facility] [id number] (90246) ALT (SGPT) 28 [iU]/L (Normal) Range: 0-40 AST (SGOT) 28 [iU]/L (Normal) Range: 0-40 Alkaline Phosphatase, S 108 [iU]/L (Normal) Range: 25-165 Bilirubin, Total 0.5 mg/dL (Normal) Range: 0.0-1.2 A/G Ratio 1.6 (Normal) Range: 1.1-2.5 Globulin, Total 2.8 g/dL (Normal) Range: 1.5-4.5 Albumin, Serum 4.5 g/dL (Normal) Range: 3.6-4.8 Protein, Total, Serum 7.3 g/dL (Normal) Range: 6.0-8.5 Calcium, Serum 9.7 mg/dL (Normal) Range: 8.6-10.2 Carbon Dioxide, Total 22 mmol/L (Normal) Range: 20-32 Chloride, Serum 103 mmol/L (Normal) Range: 97-108 Potassium, Serum 4.9 mmol/L (Normal) Range: 3.5-5.2 Sodium, Serum 142 mmol/L (Normal) Range: 134-144 BUN/Creatinine Ratio 21 (Normal) Range: 11-26 eGFR If Africn Am 105 mL/min/1.73 (Normal) eGFR If NonAfricn Am 91 mL/min/1.73 (Normal) Creatinine, Serum 0.67 mg/dL (Normal) Range: 0.57-1.00 BUN 14 mg/dL (Normal) Range: 8-27 Glucose, Serum 94 mg/dL (Normal) Range: 65-99 43-Dfu-517984:33 URINE ENRIQUE CULTURE-EDITH COL Comments: PATIENT NOT FASTINGPERFORMED BY: LabCoEast Mountain HospitalCdmbbg8185 [facility] [id number] Information: SRC:UR [id number] COUNT ([id number]) Result 1 NG36 (Normal) Comments: No growth in 36 - 48 hours. Urine Culture,Comprehensive Final report (Normal) 95-Oet-161815:37 Urinalysis, Office (15430) UA - BILIRUBIN Negative (Normal) UA - BLOOD Hemolyzed Small (Normal) UA - GLUCOSE Negative (Normal) UA - KETONES Negative mg/dL (Normal) UA - LEUKOCYTE ESTERASE Negative (Normal) UA - NITRITE Negative (Normal) UA - PH 6.0 (Normal) UA - PROTEIN Negative mg/dL (Normal) UA - SPECIFIC GRAVITY 1.025 (Normal) URINE UROBILINGN EDITH TIMED Normal mg/dL (Normal) :00 Microscopic Examination Comments: PATIENT WAS FASTINGPERFORMED BY: sCoolTV Hzafrp9508 [address] RoadDublin [place] [id number] Bacteria None seen (Normal) Epithelial Cells (non renal) 0-10 {/hpf} (Normal) Range: 0 - 10 RBC None seen {/hpf} (Normal) Range: 0 - 3 WBC 0-5 {/hpf} (Normal) Range: 0 - 5 :00 Vitamin D Hydroxy (42760) Comments: PATIENT WAS FASTINGPERFORMED BY: [facility] Taisvb2123 [address] RoadDublin [place] [id number] Vitamin D, 25-Hydroxy 22.5 ng/mL (Abnormal) Range: 30.0-100.0 Comments: Vitamin D deficiency has been defined by the [place] [facility] and an Endocrine Society practice guideline as alevel of serum 25-OH vitamin D less than 20 ng/mL (1,2).The Endocrine Society went on to further define vitamin Dinsufficiency as a level between 21 and 29 ng/mL (2).1. IOM ([place] of Medicine). 2010. Dietary reference intakes for calcium and D. [place]: The National Academies Press.2. Deepak MF, Angelito ARANDA, Adan YEBOAH, et al. Evaluation, treatment, and prevention of vitamin D deficiency: an Endocrine Society clinical practice guideline. JCEM. 2010; 96(7):1911-30. :00 TSH (52991) Comments: PATIENT WAS FASTINGPERFORMED BY: [facility] Tzxyhg8103 [address] RoadDublin [place] [id number] TSH 1.020 {uIU/mL} (Normal) Range: 0.450-4.500 :00 URINALYSIS, W/ MICRO (36422) Comments: PATIENT WAS FASTINGPERFORMED BY: [facility] Vqlnkm9298 [address] RoadDublin [place] [id number] Microscopic Examination See below: (Normal) Microscopic Examination MICRON (Normal) Comments: Microscopic follows if indicated. Nitrite, Urine Negative (Normal) Urobilinogen,Semi-Qn 0.2 mg/dL (Normal) Range: 0.0-1.9 Bilirubin Negative (Normal) Occult Blood Negative (Normal) Ketones Negative (Normal) Glucose Negative (Normal) Protein Negative (Normal) WBC Esterase Negative (Normal) Appearance Clear (Normal) Urine-Color Yellow (Normal) pH 6.0 (Normal) Range: 5.0-7.5 Specific Port[place] 1.006 (Normal) Range: 1.005-1.030 :00 MICROALBUMIN: CREATININE RATIO Comments: PATIENT WAS FASTINGPERFORMED BY: YUPPTVGuadalupe County HospitalDnapwi9943 [facility]ICESUNC [facility] [id number] (37986) AND (67084) Microalb/Creat Ratio 7.8 {mg/g_creat} (Normal) Range: 0.0-30.0 Creatinine, Urine 24.3 mg/dL (Normal) Range: 15.0-278.0 Microalbumin, Urine 1.9 ug/mL (Normal) Range: 0.0-17.0 :00 METABOLIC PANEL, COMPREHENSIVE Comments: PATIENT WAS FASTINGPERFORMED BY: YUPPTV Kldczx8703 [facility] DEVICESUNC [facility] [id number] (54848) ALT (SGPT) 34 [iU]/L (Normal) Range: 0-40 AST (SGOT) 32 [iU]/L (Normal) Range: 0-40 Alkaline Phosphatase, S 101 [iU]/L (Normal) Range: 25-165 Bilirubin, Total 1.0 mg/dL (Normal) Range: 0.0-1.2 A/G Ratio 1.5 (Normal) Range: 1.1-2.5 Globulin, Total 3.0 g/dL (Normal) Range: 1.5-4.5 Albumin, Serum 4.6 g/dL (Normal) Range: 3.6-4.8 Protein, Total, Serum 7.6 g/dL (Normal) Range: 6.0-8.5 Calcium, Serum 9.7 mg/dL (Normal) Range: 8.6-10.2 Carbon Dioxide, Total 22 mmol/L (Normal) Range: 20-32 Chloride, Serum 99 mmol/L (Normal) Range: 97-108 Potassium, Serum 4.5 mmol/L (Normal) Range: 3.5-5.2 Sodium, Serum 137 mmol/L (Normal) Range: 134-144 BUN/Creatinine Ratio 26 (Normal) Range: 11-26 eGFR If Africn Am 106 mL/min/1.73 (Normal) eGFR If NonAfricn Am 92 mL/min/1.73 (Normal) Creatinine, Serum 0.66 mg/dL (Normal) Range: 0.57-1.00 BUN 17 mg/dL (Normal) Range: 8-27 Glucose, Serum 93 mg/dL (Normal) Range: 65-99 [id number] CBC WITH MANUAL DIFF Comments: PATIENT WAS FASTINGPERFORMED BY: [id number] [id number] Information: [id number]) Immature Grans (Abs) 0.0 {x10E3/uL} (Normal) Range: 0.0-0.1 Immature Granulocytes 0 % (Normal) Range: 0-2 Baso (Absolute) 0.0 {x10E3/uL} (Normal) Range: 0.0-0.2 Eos (Absolute) 0.1 {x10E3/uL} (Normal) Range: 0.0-0.4 Monocytes(Absolute) 1.0 {x10E3/uL} (Normal) Range: 0.1-1.0 Lymphs (Absolute) 2.6 {x10E3/uL} (Normal) Range: 0.7-4.5 Neutrophils (Absolute) 5.8 {x10E3/uL} (Normal) Range: 1.8-7.8 Basos 0 % (Normal) Range: 0-3 Eos 1 % (Normal) Range: 0-7 Monocytes 11 % (Normal) Range: 4-13 Lymphs 27 % (Normal) Range: 14-46 Neutrophils 61 % (Normal) Range: 40-74 Platelets 258 {x10E3/uL} (Normal) Range: 140-415 RDW 12.8 % (Normal) Range: 12.3-15.4 Comments: Please note reference interval change MCHC 34.5 g/dL (Normal) Range: 31.5-35.7 Comments: Please note reference interval change MCH 30.5 pg (Normal) Range: 26.6-33.0 Comments: Please note reference interval change MCV 89 fL (Normal) Range: 79-97 Comments: Please note reference interval change Hematocrit 43.2 % (Normal) Range: 34.0-46.6 Comments: Please note reference interval change Hemoglobin 14.9 g/dL (Normal) Range: 11.1-15.9 Comments: Please note reference interval change RBC 4.88 {x10E6/uL} (Normal) Range: 3.77-5.28 Comments: Please note reference interval change WBC 9.6 {x10E3/uL} (Normal) Range: 4.0-10.5 81-Gwd-176805:00 LIPID PANEL (98344) Comments: PATIENT WAS FASTINGPERFORMED BY: [facility]CoEast [facility] HospitalQxovqg6586 [facility] [id number] LDL/HDL Ratio 1.8 {ratio_units} (Normal) Range: 0.0-3.2 LDL Cholesterol Calc 109 mg/dL (Abnormal) Range: 0-99 VLDL Cholesterol Abran 38 mg/dL (Normal) Range: 5-40 HDL Cholesterol 60 mg/dL (Normal) Comments: According to ATP-III Guidelines, HDL-C >59 mg/dL is considered anegative risk factor for CHD. Triglycerides 189 mg/dL (Abnormal) Range: 0-149 Cholesterol, Total 207 mg/dL (Abnormal) Range: 100-199 83-Mxr-325653:39 HgA1C , Office (57977) HgA1C , Office 6.0 % (Normal) Range: 4.6 - 7.1 74-Bef-901207:39 Blood Glucose , Office (36372) Blood Glucose , Office 100 (Normal) :26 BILAT SCRN DIGITAL & CAD Radiology Report See Note (Normal) Comments: MAMMOGRAPHY - BILATERAL SCREENING REASON FOR EXAM: Female, 66 years old. Routine annual screeningexamination. PERTINENT HISTORY: Non-contributory. TECHNIQUE: Digital examination. Med iolateral ob lique (MLO) andcraniocaudad (CC) views of both breasts were obtained. CAD: CAD wasperformed on this study. COMPARISON: Comparison is made with prior examinations dated and June 25, 2008. FINDINGS:The breast composition is composed of scattered fibroglandular densities. There are no dominant masses or suspicious calcifications. There isasymmetry of breast tissue where more breast tissue is seen in the upperouter aspect of the left breast as compared to the right side. This isstable. No other significant abnormalities are identified. There has been nosignificant change since t he prior study. IMPRESSION:Stable bilateral screening mammogram. Yearly follow- up recommended. (A) ASSESSMENT CATEGORY:BIRADS Category 2: Benign finding(s). A letter regarding these resultswill be sent to the patient by the facility within 30 days. Approximately 10% of breast cancers are not detected by mammography. Anormal mammogram should not delay biopsy of a clinically suspiciousabnormality. Signed:Kale Sanders M.D.January 05, 2012 at 9:11:03 AM EDTElectronically Signed GP/GP Professional Interpretation Provided By: [facility], , Fax To consult with a radiologist regarding this report, please call our [id number] line @ Dictated on 01/05/12 0838 by Marilyn PIEDRA,Sujeyranscribed on 01/05/12 0916 by [facility] IMPOR TSign by Kale Sanders MD on 01/05/12 0917 Sign by: Kale Sanders MD; ADDENDA: has f/u on 01/10/1224-Nov-201147-Jey-366902:35 SPINE, LUMBAR (ROUTINE) Radiology Report See Note (Normal) Comments: PROCEDURE: MRI LUMBAR SPINE WITHOUT CONTRAST REASON FOR EXAM: Female, 66 years old. TECHNIQUE: Standardized fat and water weighted pulse sequences wereobtained in the sagittal and axial planes. CO MPARISON: None FINDINGS:There is an exaggerated lumbar lordosis. There is no substantialscoliosis. Normal conus medullaris that terminates at the superiorendplate of the L1 vertebra. T12-L1: (Imaged only in the sagittal plane). Normal endplates. Normaldischeight, hydration and morphology. Normal bilateral facet joints. Normalcentral canal and bilateral lateral recesses. Normal bilateralinterve rtebral neural foramina. L1-2: (Imaged only in the sagittal plane). There is disc desiccation withpreservation of the disc height. There is minimal annular bulging.Normalcentral canal and intervertebra l neural foramina. L2-3: Normal endplates. Normal disc height, hydration and morphology.Normal bilateral facet joints. Normal central canal and bilaterallateralrecesses. Normal bilateral interverteb ral neural foramina. L3-4: There is disc desiccation, mild loss of the disc height, with mildcircumferential annular bulging and mild facet arthrosis. Normal centralcanal and intervertebral neural fora rocco. L4-5: There is disc desiccation, mild loss of the disc height, severebilateral facet arthrosis with osseous and ligamentous hypertrophy (andaxial T2 series 8, image 7), with a 4-mm L4 anterolithe sis, inrelationshipto the L5 vertebra. There is circumferential annular bulging. The APdiameter of the central canal is narrowed to 7 mm, consistent with amoderate central canal stenosis. There is mo derate bilateral lateralrecess stenosis, with possible mild neural impingement upon thedescendingleft L5 nerve root (axial T2 series 8, image 8). There is moderatebilateral L4-5 foraminal stenosis, but without morphologic neuralimpingement. L5-S1: There is disc desiccation, preservation of the disc height,severebilateral facet arthrosis, with a posterior central disc herniation oftheprotrusion type. The disc protrusion measures 4 x 11 mm (AP x transverse),and is producing ventral epidural fat effacement, with thecal sacflattening, and with mild impingement upon the bilateral descending Q5jbduy ro ots. The intervertebral neural foramina remain patent, withoutmorphologic neural impingement. The AP diameter of the central canalmeasures 9 mm, consistent with a mild central canal stenosis. Normal v isualized sacral ala. Normal visualized paraspinous soft tissue structures. IMPRESSION:1. L1-2 and L3-4 mild disc desiccation with mild annular bulging.2. L4-5 severe bilateral facet arthrosis with an L4 and retrolisthesisproducing a moderate central canal, lateral recess and frontal stenoses,with a potential for neural impingement upon the descending left L5 nerveroot.3. L5-S1 posterior central di sc protrusion, with mild impingement uponthebilateral S1 nerve roots, with a mild left central canal stenosis. Signed:Robbin Pritchard 2011 at 1:49:03 PM EDTElectronically Signed FS/FS Professional Interpretation Provided By: [facility], , To consult with a radiologist regarding this report, please call our [id number] line @ Dictated on 11/24/11 1041 by Surendra Schmitt DOTranscribed on 11/24/11 1353 by ITS IMPORTSign by Surendra Schmitt DO on 11/24/11 1354 Sign by: Surednra Schmitt DO :57 T4, FREE (THYROXINE) Comments: SEND TO DR MONTES DE OCA; PATIENT NOT FASTINGPERFORMED BY: [facility]ICES[facility] [id number] Information: [id number] (93062) T4,Free(Direct) 1.23 ng/dL (Normal) Range: 0.82-1.77 :57 T3, FREE (TRIDOTHYRONINE) (73833) Comments: SEND TO DR MONTES DE OCA; PATIENT NOT FASTINGPERFORMED BY: [facility] [id number] Triiodothyronine,Free,Serum 4.0 pg/mL (Normal) Range: 2.0-4.4 :57 TSH (29713) Comments: ALSO SEND TO DR MONTES DE OCA; PATIENT NOT FASTINGPERFORMED BY: YUPPTV Sjfyir[address] [facility] [id number] TSH 1.220 {uIU/mL} (Normal) Range: 0.450-4.500 :40 HgA1C , Office (40908) HgA1C , Office 6.1 % (Normal) Range: 4.6 - 7.1 06-Oct-20118:40 Blood Glucose , Office (82928) Blood Glucose , Office 101 (Normal) :26 CBCD,SMEAR DIFF RED CELL MORPH SeeNote {NORMAL} (Normal) Comments: Result: NORM C+C PLT EST SeeNote (Normal) Comments: Result: ADEQUATE MONOCYTE 5 % (Normal) Range: 0-10 LYMPH 31 % (Normal) Range: 19-41 BAND 1 % (Normal) Range: 0-5 SEGS 63 % (Normal) Range: 47-70 CELLS COUNTED 100 (Normal) ABSOLUTE NEUT 4.3 3/uL (Normal) Range: 2.0-7.7 PLT 211 K/mm3 (Normal) Range: 150-450 RDW 12.0 % (Normal) Range: 11.6-14.6 MCHC 34.8 g/dL (Normal) Range: 32-36 MCH 31.1 pg (Normal) Range: 27.0-32.0 MCV 89.2 fL (Normal) Range: 81-99 HCT 40.0 % (Normal) Range: 37-47 HGB 13.9 g/dL (Normal) Range: 12.0-16.0 RBC 4.49 {M/mm3} (Normal) Range: 4.2-5.4 WBC 7.0 K/mm3 (Normal) Range: 4.4-11.0 :26 COMP METABOLIC GAP 7 (Normal) Range: 5-15 CO2 28.0 mmol/L (Normal) Range: 21.0-32.0 CL 105 mmol/L (Normal) Range: 98-107 K 4.0 mmol/L (Normal) Range: 3.5-5.1 NA 140 mmol/L (Normal) Range: 136-145 T BILI 0.60 mg/dL (Normal) Range: 0.00-1.00 ALT 56 U/L (Normal) Range: 12-78 ALK P 91 U/L (Normal) Range: 50-136 AST 39 U/L (Abnormal) Range: 15-37 CA 9.1 mg/dL (Normal) Range: 8.5-10.1 A/G 1.1 {RATIO} (Normal) Range: 0.9-2.4 GLOB 3.9 g/dL (Normal) Range: 2.7-4.2 ALB 4.2 g/dL (Normal) Range: 3.4-5.0 T PROT 8.1 g/dL (Normal) Range: 6.4-8.2 BUN/CRE 15.0 {RATIO} (Normal) Range: 10-20 EST GFR - AA 128 mL/min (Normal) EST GFR 106 mL/min (Normal) CREAT,SERUM 0.6 mg/dL (Normal) Range: 0.6-1.0 BUN 9 mg/dL (Normal) Range: 7-18 GLU 109 mg/dL (Normal) Range: 70-110 26-Alt-249389:26 COMPLETE UA MUCUS, URINE 0 SEEN {/hpf} (Normal) BACTERIA 0 SEEN {/hpf} (Normal) RBC-UA 0 SEEN {/hpf} (Normal) Range: 0-5 SQUAM EPI SeeNote {/hpf} (Normal) Range: 5-10 Comments: Result: 10-25 SEEN WBC 0 SEEN {/hpf} (Normal) Range: 0-5 LEUK ESTERASE SeeNote (Normal) Comments: Result: NEGATIVE OCCULT BLOOD-UR SeeNote (Abnormal) Comments: Result: TRACE-INTACT NITRITE UR SeeNote (Normal) Comments: Result: NEGATIVE UROBILI 0.2 EU/dl (Normal) Range: 0.2 - 1.0 PROT DIPSTX SeeNote (Normal) Comments: Result: NEGATIVE pH UR 6.5 (Normal) Range: 5.0-8.0 KETONE UR SeeNote mg/dL (Normal) Comments: Result: NEGATIVE SP.GR. DIPSTX 1.010 (Normal) Range: 1.002-1.030 BILIRUBIN URINE SeeNote (Normal) Comments: Result: NEGATIVE GLUCOSE, UR SeeNote (Normal) Comments: Result: NEGATIVE CLARITY CLEAR (Normal) COLOR STRAW (Normal) 95-Lnk-501180:26 LIPID VLDL 36 mg/dL (Normal) Range: 5-40 HDL 45 mg/dL (Normal) Comments: Reference Range HDL <40 mg/dL Low HDL Cholesterol HDL >or= 60 mg/dL High HDL Cholesterol LDL 70 mg/dL (Normal) Range: 0-130 TRIG 179 mg/dL (Normal) Comments: Serum Triglycerides Reference Interval Normal <150 mg/dL Borderline high 150 - 199 mg/dL High 200 - 499 mg/dL Very High > or = 500 mg/dL CHOL 151 mg/dL (Normal) Comments: <200 mg/dL Desirable 200-240 mg/dL Borderline >240 mg/dL High Risk :26 MICROALB:CRE UR MALB:CREAT 15.4 {mg/g_CRE} (Normal) MICROALBUMIN,UR 6.4 mg/L (Normal) UR CREAT 41.3 mg/dL (Normal) :2 TSH 1.47 {uIU/mL} (Normal) Range: 0.358-3.74 6 :2 VIT D,25 08858 34.4 ng/mL (Normal) Range: 30.0-100.0 6 Comments: Vitamin D deficiency has been defined by the [place] [facility] and an Endocrine Society practice guideline as alevel of serum 25-OH vitamin D less than 20 ng/mL (1,2).The Endocrine Society went on to further define vitamin Dinsufficiency as a level between 21 and 29 ng/mL (2).1. IOM ([place] of Medicine). 2010. Dietary reference intakes for calcium and D. [place]: The National Academies Press.2. Deepak MF, Angelito NC, Adan YEBOAH, et al. Evaluation, treatment, and prevention of vitamin D deficiency: an Endocrine Society clinical practice guideline. JCEM. 2010; 96(7): 1911-30.Performed at: - [facility] [id number] Director: Judith Luevano MD, Phone: [phone] HgA1C , Office (82513) HgA1C , Office 5.7 % (Normal) Range: 4.6 - 7.1 :54 Blood Glucose , Office (97551) Blood Glucose , Office 92 (Normal) :02 CBCD,SMEAR DIFF RED CELL MORPH SeeNote {NORMAL} (Normal) Comments: Result: NORM C+C PLT EST SeeNote (Normal) Comments: Result: ADEQUATE EOS 3 % (Normal) Range: 0-5 MONOCYTE 10 % (Normal) Range: 0-10 LYMPH 39 % (Normal) Range: 19-41 SEGS 48 % (Normal) Range: 47-70 CELLS COUNTED 100 (Normal) ABSOLUTE NEUT 3.8 3/uL (Normal) Range: 2.0-7.7 PLT 220 K/mm3 (Normal) Range: 150-450 RDW 11.7 % (Normal) Range: 11.6-14.6 MCHC 34.8 g/dL (Normal) Range: 32-36 MCH 31.4 pg (Normal) Range: 27.0-32.0 MCV 90.2 fL (Normal) Range: 81-99 HCT 40.2 % (Normal) Range: 37-47 HGB 14.0 g/dL (Normal) Range: 12.0-16.0 RBC 4.46 {M/mm3} (Normal) Range: 4.2-5.4 WBC 6.9 K/mm3 (Normal) Range: 4.4-11.0 :02 COMP METABOLIC GAP 8 (Normal) Range: 5-15 CO2 27.0 mmol/L (Normal) Range: 21.0-32.0 CL 106 mmol/L (Normal) Range: 98-107 K 4.3 mmol/L (Normal) Range: 3.5-5.1 NA 141 mmol/L (Normal) Range: 136-145 T BILI 0.70 mg/dL (Normal) Range: 0.00-1.00 ALT 38 U/L (Normal) Range: 12-78 ALK P 83 U/L (Normal) Range: 50-136 AST 21 U/L (Normal) Range: 15-37 CA 8.8 mg/dL (Normal) Range: 8.5-10.1 A/G 1.1 {RATIO} (Normal) Range: 0.9-2.4 GLOB 3.9 g/dL (Normal) Range: 2.7-4.2 ALB 4.1 g/dL (Normal) Range: 3.4-5.0 T PROT 8.0 g/dL (Normal) Range: 6.4-8.2 BUN/CRE 30.0 {RATIO} (Abnormal) Range: 10-20 EST GFR - AA 108 mL/min (Normal) EST GFR 89 mL/min (Normal) CREAT,SERUM 0.7 mg/dL (Normal) Range: 0.6-1.0 BUN 21 mg/dL (Abnormal) Range: 7-18 GLU 95 mg/dL (Normal) Range: 70-110 06-Xsk-189734:02 COMPLETE UA MUCUS, URINE 0 SEEN {/hpf} (Normal) BACTERIA 0 SEEN {/hpf} (Normal) SQUAM EPI SeeNote {/hpf} (Normal) Range: 5-10 Comments: Result: 0-5 SEEN RBC-UA SeeNote {/hpf} (Normal) Range: 0-5 Comments: Result: 0-5 SEEN WBC 0 SEEN {/hpf} (Normal) Range: 0-5 LEUK ESTERASE SeeNote (Normal) Comments: Result: NEGATIVE OCCULT BLOOD-UR 1+ (Abnormal) NITRITE UR SeeNote (Normal) Comments: Result: NEGATIVE UROBILI 0.2 EU/dl (Normal) Range: 0.2 - 1.0 PROT DIPSTX SeeNote (Normal) Comments: Result: NEGATIVE pH UR 5.0 (Normal) Range: 5.0-8.0 SP.GR. DIPSTX 1.015 (Normal) Range: 1.002-1.030 KETONE UR SeeNote mg/dL (Normal) Comments: Result: NEGATIVE BILIRUBIN URINE SeeNote (Normal) Comments: Result: NEGATIVE GLUCOSE, UR SeeNote (Normal) Comments: Result: NEGATIVE CLARITY CLEAR (Normal) COLOR STRAW (Normal) :02 LIPID VLDL 27 mg/dL (Normal) Range: 5-40 LDL 107 mg/dL (Normal) Range: 0-130 HDL 41 mg/dL (Normal) Comments: Reference Range HDL <40 mg/dL Low HDL Cholesterol HDL >or= 60 mg/dL High HDL Cholesterol TRIG 134 mg/dL (Normal) Comments: Serum Triglycerides Reference Interval Normal <150 mg/dL Borderline high 150 - 199 mg/dL High 200 - 499 mg/dL Very High > or = 500 mg/dL CHOL 175 mg/dL (Normal) Comments: <200 mg/dL Desirable 200-240 mg/dL Borderline >240 mg/dL High Risk :02 MICROALB:CRE UR MALB:CREAT 11.6 {mg/g_CRE} (Normal) MICROALBUMIN,UR 6.2 mg/L (Normal) UR CREAT 53.4 mg/dL (Normal) 00-Van-099491:12 FECAL OCCULT HGB ASSAY- tubes sent home (20854) FECAL OCCULT HGB ASSAY, QUAL, 1-3 SIMULTANEOU neg (Normal) 91-Krr-916286:13 HgA1C , Office (07484) HgA1C , Office 6.6 % (Normal) Range: 4.6 - 7.1 93-Ttw-783831:13 Blood Glucose , Office (61632) Blood Glucose , Office 108 (Normal) 07-Jse-136086:32 LOWER EXT.JOINT ONLY (ROUTINE) Radiology Report See Note (Normal) Comments: REASON FOR EXAM: Female, 65 years old. 5 month history of left knee pain PROCEDURE: MRI LEFT KNEE TECHNIQUE: Standardized fat and water weighted pulse sequences wereobtained in all 3 orthogonal planes. COMPARISON: None. FINDINGS:Degeneration, fraying and tear the posterior horn of the medial meniscus(sagittal proton density series 6 image 8). There is diffuse, fwpctlcpgka76% thickness articular cartil age loss of the medial femorotibialcompartment. There is mild osteoarthritic spur formation of the medialkneecompartment with subchondral sclerosis and reactive edema. Normal medial collateral ligamento us complex (MCL). Normal distalsemimembranosus, gracilis and semitendinosus tendons. Normal lateral meniscus. Normal hyaline cartilage of the lateralfemorotibial compartment. There is mild osteoarthriti c spur formation ofthe lateral knee compartment. Normal proximal tibiofibular articulation. Normal lateral collateral(fibular) ligament. Normal popliteus tendon. Normal biceps femoristendon. Normal an terior cruciate ligament (ACL). Normal posterior cruciateligament(PCL). Normal congruent patellofemoral articulation. There is diffuse, less than50% thickness articular cartilage loss of the patellofemo ral compartment.Normal medial and lateral patellar retinaculum. Normal quadriceps tendon. Normal patellar tendon. Normal Hoffa's fat pad. There is a moderate volume joint effusion. There is a Rabago's cyst. The soft tissues are unremarkable. The otherwise visualized osseousstructures are unremarkable. IMPRESSION:Degeneration, fraying and horizontal tear of the posterior horn of themedial meniscus. 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 Moderate joint effusion. Small popliteal cyst. Dictated on 01/11/11 1350 by Tom Allen MDranscribed on 01/11/11 2 138 by ITS IMPORTSign by Leonard Allen MD on 01/11/11 3899 Sign by: Tiffany PIEDRA,[facility] 2-Cii-160092:48 KNEE,4 OR MORE VIEWS Radiology Report See Note (Normal) Comments: CLINICAL:Female, 65 years old. Left knee pain and swelling. X-RAY EXAMINATION - LEFT KNEE TECHNIQUE:Four views of the left knee. COMPARISON:None. FINDINGS:There is mild degenerative arthrosis of the me dial femorotibialcompartment. Normal lateral femorotibial compartment. Normalpatellofemoral articulation. Normal visualized distal femur. Normal visualized proximal tibia andfibula. Normal proximal tibiofibular articulation. A moderate-sized joint effusion is noted. There is no demonstrated soft tissue swelling. IMPRESSION:Mild degenerative changes. Moderate-sized joint effusion. Dictated on 1445 by JULIANA IVAN MDranscribed on 01/06/11537 by ITS IMPORTSign by JOSHUA IVAN MD on 01/06/11537 Sign by: JOSHUA IVAN MD 7-Aaq-243927:26 URINE ENRIQUE CULTURE-IDENTIFICATN Comments: PATIENT NOT FASTINGPERFORMED BY: LabCoEast [facility] HospitalKvhknj7165 [facility] [id number] Information: [id number] (57331) Result 1 MUG (Normal) Comments: Mixed urogenital flora50,000-100,000 colony forming units per mL Urine Final report (Normal) Culture,Comprehensive 31-Dec-20109:59 Urinalysis, Office (69553) UA - BILIRUBIN Negative (Normal) UA - BLOOD Hemolyzed Small (Normal) UA - GLUCOSE Negative (Normal) UA - KETONES Negative mg/dL (Normal) UA - LEUKOCYTE ESTERASE Negative (Normal) UA - NITRITE Negative (Normal) UA - PH 6.5 (Normal) UA - PROTEIN Negative mg/dL (Normal) UA - SPECIFIC GRAVITY 1.025 (Normal) URINE UROBILINGN EDITH TIMED Normal mg/dL (Normal) 42-Kvy-582287:25 Urinalysis, Office (86068) UA - BILIRUBIN Negative (Normal) UA - BLOOD Hemolyzed Moderate (Normal) UA - GLUCOSE Negative (Normal) UA - KETONES Negative mg/dL (Normal) UA - LEUKOCYTE ESTERASE Negative (Normal) UA - NITRITE Negative (Normal) UA - PH 5.0 (Normal) UA - PROTEIN Negative mg/dL (Normal) UA - SPECIFIC GRAVITY 1.020 (Normal) URINE UROBILINGN EDITH TIMED Normal mg/dL (Normal) 64-Foi-392214:36 URINE ENRIQUE CULTURE-EDITH COL Comments: PATIENT NOT FASTINGPERFORMED BY: [place] 2913770 [facility] [id number] Information: SRC:UR [id number] COUNT (88193) Result 1 NG36 (Normal) Comments: No growth in 36 - 48 hours. Urine Culture,Comprehensive Final report (Normal) 44-Mql-897578:25 Urinalysis, Office (14490) UA - BILIRUBIN Negative (Normal) UA - BLOOD Hemolyzed Small (Normal) UA - GLUCOSE Negative (Normal) UA - KETONES Negative mg/dL (Normal) UA - LEUKOCYTE ESTERASE Negative (Normal) UA - NITRITE Negative (Normal) UA - PH 6.0 (Normal) UA - PROTEIN Negative mg/dL (Normal) UA - SPECIFIC GRAVITY 1.010 (Normal) URINE UROBILINGN EDITH TIMED Normal mg/dL (Normal) 5-Bbf-349351:26 TSH (59018) Comments: PATIENT NOT FASTINGPERFORMED BY: [address] [id number] Information: [id number] TSH 1.100 {uIU/mL} (Normal) Range: 0.450-4.500 :05 TSH (18890) Comments: PATIENT NOT FASTINGPERFORMED BY: [address] [id number] Information: [id number] TSH 1.240 {uIU/mL} (Normal) Range: 0.450-4.500 :23 TSH (55918) Comments: PATIENT NOT FASTINGPERFORMED BY: [address] [id number] Information: [id number] TSH 1.020 {uIU/mL} (Normal) Range: 0.450-4.500 69-Ojb-771974:55 TSH (16161) Comments: PATIENT NOT FASTINGPERFORMED BY: [facility]6370 [facility] [id number] Information: [id number] TSH 1.750 {uIU/mL} (Normal) Range: 0.450-4.500 32-Pna-586226:21 Microscopic Examination Comments: PATIENT WAS FASTINGPERFORMED BY: sCoolTVEast Mountain HospitalZdrhlz3209 [facility] [id number] BY: [address] [id number] Bacteria None seen (Normal) Mucus Threads Present (Normal) Epithelial Cells (non renal) >10 {/hpf} (Abnormal) Range: 0 - 10 RBC 0-3 {/hpf} (Normal) Range: 0 - 3 WBC 0-5 {/hpf} (Normal) Range: 0 - 5 53-Gjk-143365:21 IRON BINDING CAPACITY Comments: PATIENT WAS FASTINGPERFORMED BY: sCoolTVEast Mountain HospitalPqkjmx4750 [facility] [id number] BY: [address] [id number] (TIBC) (16378) Iron Saturation 31 % (Normal) Range: 15-55 Iron, Serum 107 ug/dL (Normal) Range: 35-155 UIBC 237 ug/dL (Normal) Range: 150-375 Iron Bind.Cap.(TIBC) 344 ug/dL (Normal) Range: 250-450 37-Ywf-445627:21 FERRITIN (93784) Comments: PATIENT WAS FASTINGPERFORMED BY: [facility] [id number] BY: [address] [id number] Ferritin, Serum 202 ng/mL (Abnormal) Range: 13-150 75-Zed-001621:21 ZINC, BLOOD (08534) Comments: PATIENT WAS FASTINGPERFORMED BY: [facility]6370 [facility] [id number] BY: [address] [id number] Zinc, Plasma or Serum 116 ug/dL (Normal) Range: 70-150 Comments: Detection Limit = 5 MICROALBUMIN: CREATININE Comments: PATIENT WAS FASTINGPERFORMED BY: [address] [id number] BY: [address] [id number] RATIO (74559) AND (28919) Microalb/Creat Ratio 6.8 {mg/g_creat} (Normal) Range: 0.0-30.0 Creatinine, Urine 106.8 mg/dL (Normal) Range: 15.0-278.0 Microalbumin, Urine 7.3 ug/mL (Normal) Range: 0.0-17.0 : URINALYSIS, W/ MICRO Comments: PATIENT WAS FASTINGPERFORMED BY: YUPPTV[address] [id number] BY: [address] [id number] (98139) Microscopic Examination See below: (Normal) Nitrite, Urine Negative (Normal) Urobilinogen,Semi-Qn 0.2 mg/dL (Normal) Range: 0.0-1.9 Bilirubin Negative (Normal) Glucose Negative (Normal) Ketones Negative (Normal) Occult Blood Trace (Abnormal) Protein Negative (Normal) Appearance Clear (Normal) pH 5.5 (Normal) Range: 5.0-7.5 Urine-Color Yellow (Normal) WBC Esterase Negative (Normal) Specific [place] 1.018 (Normal) Range: 1.005-1.030 : METABOLIC PANEL, Comments: PATIENT WAS FASTINGPERFORMED BY: sCoolTV[address] [id number] BY: [address] [id number] COMPREHENSIVE (40117) Alkaline Phosphatase, S 86 [iU]/L (Normal) Range: 25-165 ALT (SGPT) 41 [iU]/L (Abnormal) Range: 0-40 AST (SGOT) 36 [iU]/L (Normal) Range: 0-40 A/G Ratio 1.6 (Normal) Range: 1.1-2.5 Bilirubin, Total 0.7 mg/dL (Normal) Range: 0.0-1.2 Globulin, Total 2.8 g/dL (Normal) Range: 1.5-4.5 Albumin, Serum 4.6 g/dL (Normal) Range: 3.6-4.8 Protein, Total, Serum 7.4 g/dL (Normal) Range: 6.0-8.5 Calcium, Serum 9.2 mg/dL (Normal) Range: 8.6-10.2 Carbon Dioxide, Total 26 mmol/L (Normal) Range: 20-32 Chloride, Serum 102 mmol/L (Normal) Range: 97-108 Potassium, Serum 4.4 mmol/L (Normal) Range: 3.5-5.2 Sodium, Serum 139 mmol/L (Normal) Range: 135-145 BUN/Creatinine Ratio 20 (Normal) Range: 11-26 eGFR AfricanAmerican >59 mL/min/1.73 Comments: Note: Persistent reduction for 3 months or more in an eGFR<60 mL/min/1.73 m2 defines CKD. Patients with eGFR values>/=60 mL/min/1.73 m2 may also have CKD if evidence of persistentproteinuria is (Normal) present. Additional information may be found [email or web address]. BUN 14 mg/dL (Normal) Range: 8-27 Creatinine, Serum 0.71 mg/dL (Normal) Range: 0.57-1.00 eGFR >59 mL/min/1.73 (Normal) Glucose, Serum 97 mg/dL (Normal) Range: 65-99 99-Noz-815562:21 LIPID PANEL (74314) Comments: PATIENT WAS FASTINGPERFORMED BY: CB [facility] Yicqjg6363 [facility] [id number] BY: BN [facility] [address] [id number] LDL Cholesterol Calc 97 mg/dL (Normal) Range: 0-99 LDL/HDL Ratio 2.2 {ratio_units} (Normal) Range: 0.0-3.2 VLDL Cholesterol Abran 49 mg/dL (Abnormal) Range: 5-40 HDL Cholesterol 45 mg/dL (Normal) Comments: According to ATP-III Guidelines, HDL-C >59 mg/dL is considered anegative risk factor for CHD. Triglycerides 246 mg/dL (Abnormal) Range: 0-149 Cholesterol, Total 191 mg/dL (Normal) Range: 100-199 01-Xnl-027862:21 CBC WITH MANUAL DIFF Comments: PATIENT WAS FASTINGPERFORMED BY: CB [facility] Ysjvwl9196 [facility] [id number] BY: BN [facility] Lznjfsjeog7045 [facility] [id number] Inf ormation: [id number] PSPUN (00348) Baso (Absolute) 0.0 {x10E3/uL} (Normal) Range: 0.0-0.2 Immature Grans (Abs) 0.0 {x10E3/uL} (Normal) Range: 0.0-0.1 Immature Granulocytes 0 % (Normal) Range: 0-1 Eos (Absolute) 0.2 {x10E3/uL} (Normal) Range: 0.0-0.4 Monocytes(Absolute) 0.8 {x10E3/uL} (Normal) Range: 0.1-1.0 Lymphs (Absolute) 2.3 {x10E3/uL} (Normal) Range: 0.7-4.5 Neutrophils (Absolute) 7.2 {x10E3/uL} (Normal) Range: 1.8-7.8 Basos 0 % (Normal) Range: 0-3 Eos 2 % (Normal) Range: 0-7 Monocytes 7 % (Normal) Range: 4-13 Lymphs 22 % (Normal) Range: 14-46 Neutrophils 69 % (Normal) Range: 40-74 Platelets 232 {x10E3/uL} (Normal) Range: 140-415 MCH 31.1 pg (Normal) Range: 27.0-34.0 MCHC 34.6 g/dL (Normal) Range: 32.0-36.0 RDW 12.4 % (Normal) Range: 11.7-15.0 MCV 90 fL (Normal) Range: 80-98 Hematocrit 42.8 % (Normal) Range: 34.0-44.0 Hemoglobin 14.8 g/dL (Normal) Range: 11.5-15.0 RBC 4.76 {x10E6/uL} (Normal) Range: 3.80-5.10 WBC 10.5 {x10E3/uL} (Normal) Range: 4.0-10.5 :21 TSH ([id number]) Comments: PATIENT WAS FASTINGPERFORMED BY: [facility] Caoefq6742 [facility] [id number] BY: [facility] [id number] TSH 0.928 {uIU/mL} (Normal) Range: 0.450-4.500 :21 CALCIFIDIOL (87163) VIT D Comments: PATIENT WAS FASTINGPERFORMED BY: [facility] Nbnftt5691 [facility] [id number] BY: [facility] [id number] Vitamin D, 25-Hydroxy 31.1 ng/mL (Abnormal) Range: 32.0-100.0 Comments: Recent studies consider the lower limit of 32.0 ng/mL to be athreshold for optimal health.Eugene BW. J Nutr. 2004;135(2):317-22. :47 HgA1C , Office (82136) HgA1C , Office 6.3 % (Normal) Range: 4.6 - 7.1 :47 Blood Glucose , Office (88519) Blood Glucose , Office 129 (Normal) :52 DEXA BONE DENSITY STUDY (HP) Radiology See Note Comments: REPORT CLINICAL:Tobacco use. Osteoporosis EXAMINATION:DUAL ENERGY X-RAY ABSORPTIOMETRY / DEXA. TECHNIQ Report (Normal) UE:Bone Density Measurements (BMD) of lumbar spine and bilateral hips wereobtained using a [employer] scanner.. COMPARISON:June 25, 2008 FINDINGS: Lumbar Spine (L1-L4): g/cm2 (1.079) / T-score (-0.8) / Z-score (0.7)Left Femur Total: g/cm2 (1.090) / T- score (0.7) / Z-score (1.8)Right Femur Total: g/cm2 (1.087) / T-score (0.6) / Z-score (1.8) Bone mineral densities on th e most recent examination were: Lumbar Spine (L1-L4): 0.956 this is a increase of 12.9 %.Left Femur Total: 0.940 this is a decrease of 0.6 %. IMPRESSION:The patient is considered normal, as out lined above, according to WorldHealth Organization (WHO) criteria. Fracture risk is low. Reference Information:The T-score is the number of standard deviations above or below thestandard which is meghan l for young adults at their peak bone mineraldensity. The World Health Organization (WHO) interprets the T-scores asfollows: Above -1 Normal bone densityBetween -1 and -2.5 OsteopeniaEqual to / or below -2.5 Osteoporosis As a practical clinical guideline, osteopenia may be graded as follows:Mild -1 through -1.5Moderate -1.6 through -2.0Severe -2.1 through -2.4 The Z-scor e is the number of standard deviations above or below age-matchedcontrols. A Z-score of less than -1.5 would be considered abnormal. References:1. NIH Osteoporosis and Related Bone Diseases http://www. osteo.org2. International Society for Clinical Densitometry http://www.iscd.org3. National Osteoporosis Foundation http://www.nof.org Dictated on 07/23/10 0858 by MALA VOGTTranscribed on 23/05 by ITS IMPORTSign by MALA VOGT on 07/23/101824 Sign by: AMLA VOGT 70-Ylu-74832:47 Vitamin D Hydroxy (90034) Comments: PATIENT NOT FASTINGPERFORMED BY: [facility] Hbtrba5904 [facility] [id number] Information: [id number] Vitamin D, 25-Hydroxy 15.0 ng/mL (Abnormal) Range: 32.0-100.0 Comments: Recent studies consider the lower limit of 32.0 ng/mL to be athreshold for optimal health.Eugene VELÁZQUEZ. J Nutr. 2004;135(2):317-22. 64-Ixj-25435:25 FECAL OCCULT- Tubes sent home (78996) FECAL OCCULT HGB ASSAY, QUAL, 1-3 SIMULTANEOU negative (Normal) :00 BILAT SCRN DIGITAL & CAD Radiology Report See Note (Normal) Comments: MAMMOGRAPHY - BILATERAL SCREENING INDICATION:Routine annual screening examination. PERTINENT HISTORY:Non- contributory. TECHNIQUE:Digital examination. Mediolateral oblique (MLO) and craniocaudad (CC)vie ws of both breasts were obtained. CAD was performed on this study. COMPARISON:January 2007 and June 25 2008 FINDINGS:The breast composition is composed of scattered fibroglandulardensities.There is an area of asymmetric parenchymal density in the upper outerquadrant of the left breast. This is stable.There are no masses or suspicious microcalcifications. No other significant abnormalities are ident ified. IMPRESSION:Normal bilateral screening mammogram. Yearly follow-up recommended. ASSESSMENT CATEGORY:Category 2: Benign finding(s) Approximately 10% of breast cancers are not detected by mammogra phy. Anormal mammogram should not delay biopsy of a clinically suspiciousabnormality. Dictated on 06/18/10 1032 by MICHELLE POOLETranscribed on 06/18/10 1032 by PIPER,MCKESSONSign by KM POOLE on 06/24/10 1642 Sign by: MICHELLE POOLE :26 TSH ([id number]) Comments: PATIENT WAS FASTINGPERFORMED BY: [facility] Fortgf9320 [facility] [id number] TSH 1.240 {uIU/mL} (Normal) Range: 0.450-4.500 :26 MICROALBUMIN: CREATININE RATIO Comments: PATIENT WAS FASTINGPERFORMED BY: sCoolTVEast Mountain HospitalTjkbpk0053 [facility] [id number] (28520) AND (10093) Microalb/Creat Ratio 25.3 {mg/g_creat} (Normal) Range: 0.0-30.0 Creatinine, Urine 155.5 mg/dL (Normal) Range: 15.0-278.0 Microalbumin, Urine 39.4 ug/mL (Abnormal) Range: 0.0-17.0 :26 METABOLIC PANEL, COMPREHENSIVE Comments: PATIENT WAS FASTINGPERFORMED BY: F[facility]6370 [facility] [id number] (54683) ALT (SGPT) 38 [iU]/L (Normal) Range: 0-40 AST (SGOT) 36 [iU]/L (Normal) Range: 0-40 A/G Ratio 1.5 (Normal) Range: 1.1-2.5 Alkaline Phosphatase, S 92 [iU]/L (Normal) Range: 25-165 Bilirubin, Total 0.6 mg/dL (Normal) Range: 0.0-1.2 Globulin, Total 3.2 g/dL (Normal) Range: 1.5-4.5 Albumin, Serum 4.7 g/dL (Normal) Range: 3.6-4.8 Calcium, Serum 9.6 mg/dL (Normal) Range: 8.6-10.2 Protein, Total, Serum 7.9 g/dL (Normal) Range: 6.0-8.5 Carbon Dioxide, Total 21 mmol/L (Normal) Range: 20-32 Chloride, Serum 103 mmol/L (Normal) Range: 97-108 Potassium, Serum 3.9 mmol/L (Normal) Range: 3.5-5.2 Sodium, Serum 141 mmol/L (Normal) Range: 135-145 BUN/Creatinine Ratio 18 (Normal) Range: 8-27 BUN 12 mg/dL (Normal) Range: 5-26 Creatinine, Serum 0.66 mg/dL (Normal) Range: 0.57-1.00 eGFR >59 mL/min/1.73 (Normal) eGFR AfricanAmerican >59 mL/min/1.73 Comments: Note: Persistent reduction for 3 months or more in an eGFR<60 mL/min/1.73 m2 defines CKD. Patients with eGFR values>/=60 mL/min/1.73 m2 may also have CKD if evidence of persistentproteinuria is (Normal) present. Additional information may be found atwww.kdoqi.org. Glucose, Serum 98 mg/dL (Normal) Range: 65-99 :26 LIPID PANEL (96597) Comments: PATIENT WAS FASTINGPERFORMED BY: FMS [facility]6370 [facility] [id number] LDL/HDL Ratio 3.9 {ratio_units} (Abnormal) Range: 0.0-3.2 LDL Cholesterol Calc 180 mg/dL (Abnormal) Range: 0-99 VLDL Cholesterol Abran 44 mg/dL (Abnormal) Range: 5-40 HDL Cholesterol 46 mg/dL (Normal) Comments: According to ATP-III Guidelines, HDL-C >59 mg/dL is considered anegative risk factor for CHD. Cholesterol, Total 270 mg/dL (Abnormal) Range: 100-199 Triglycerides 220 mg/dL (Abnormal) Range: 0-149 :26 CBC WITH MANUAL DIFF Comments: PATIENT WAS FASTINGPERFORMED BY: F[facility]6370 [facility] [id number] Information: [id number] (93799) Baso (Absolute) 0.0 {x10E3/uL} (Normal) Range: 0.0-0.2 Eos (Absolute) 0.1 {x10E3/uL} (Normal) Range: 0.0-0.4 Immature Grans (Abs) 0.0 {x10E3/uL} (Normal) Range: 0.0-0.1 Immature Granulocytes 0 % (Normal) Range: 0-1 Monocytes(Absolute) 0.8 {x10E3/uL} (Normal) Range: 0.1-1.0 Lymphs (Absolute) 3.2 {x10E3/uL} (Normal) Range: 0.7-4.5 Basos 0 % (Normal) Range: 0-3 Eos 1 % (Normal) Range: 0-7 Monocytes 7 % (Normal) Range: 4-13 Neutrophils (Absolute) 6.3 {x10E3/uL} (Normal) Range: 1.8-7.8 Lymphs 31 % (Normal) Range: 14-46 Neutrophils 61 % (Normal) Range: 40-74 MCH 30.9 pg (Normal) Range: 27.0-34.0 MCHC 33.6 g/dL (Normal) Range: 32.0-36.0 Platelets 261 {x10E3/uL} (Normal) Range: 140-415 RDW 12.4 % (Normal) Range: 11.7-15.0 Hematocrit 45.3 % (Abnormal) Range: 34.0-44.0 MCV 92 fL (Normal) Range: 80-98 Hemoglobin 15.2 g/dL (Abnormal) Range: 11.5-15.0 RBC 4.92 {x10E6/uL} (Normal) Range: 3.80-5.10 WBC 10.4 {x10E3/uL} (Normal) Range: 4.0-10.5 :49 HgA1C , Office (07874) HgA1C , Office 5.8 % (Normal) Range: 4.6 - 7.1 :49 Blood Glucose , Office (66564) Blood Glucose , 100 (Normal) Office :0 ACTH, Plasma 11 pg/mL (Normal) Comments: PERFORMED BY: [employer] Uxybns1777 [facility] [id number] Range: 6-48 :00 Cortisol, Urinary Free Comments: Clinical Information: 10/28@8AM 10/29@630AM PERFORMED BY: YUPPTVEast Mountain HospitalHaupfc8949 [facility] [id number] Cortisol,F,ug/24hr,U 16 {ug/24_hr} (Normal) Range: 0-50 Cortisol,F,ug/L,U 7 ug/L (Normal) :23 BILAT SCRN DIGITAL & CAD Radiology Report See Note (Normal) Comments: Exam Number: [id number] DIGITAL SCREENING MAMMOGRAMS WITH CAD COMPARISON STUDIESJu2006, and May 30, 2004. TECHNIQUERoutine craniocaudal and mediolateral oblique views are obtained ofeach breas t using digital technique. CAD is also performed. There is moderate breast density bilaterally. There is no worrisomemass, typically malignant-type microcalcifications or architecturaldistortion in eit her breast. There is no significant interval change. IMPRESSIONNo mammographic evidence for cancer in either breast. Routinebilateral annual screening assessment is recommended. BIRADS Category 2. A letter regarding the results has been sent to the patient. This interpretation was rendered by a radiologist certified under theMammography Quality Standards Act of 1992 (MQSA). The mammograms wereals o examined with computer-aided detection software ([employer], [employer].). Reported By: ENDY LOUIS M.D. :22 DEXA BONE DENSITY STUDY (HP) Radiology Report See Note (Normal) Comments: Exam Number: [id number] BONE DENSITOMETRY HISTORYPost menopausal. TECHNIQUE Bone densitometry of the lumbar spine and left hip was performed. Thebest criteria for evaluation of osteoporosis is the T -value, whichrepresents the comparison of the patient's bone mass to an expectedpeak bone mass. For most patients, the mean T-value of L1 through L4is used to evaluate the lumbar spine. Based on the n ewest WorldHealth Organization classifications, the hip is evaluated by utilizingthe lower of the T-value of the total hip or the T-value of thefemoral neck. FINDINGSIn this patient, the mean T-value of L1 through L4 is -1.9 which is inthe range of osteopenia. Bone mineral density is measured at 0.4%more than in 2007. Digital lateral view for evaluation of vertebraldeformity only demonstrates minim al loss of anterior height of T6 and7. The T-value of the left femoral neck is -0.7 which is normal. TheT-value of the total left hip is 0.5 which is normal. Bone mineraldensity is measured at 3.5% less than in 2007. IMPRESSIONThere is osteopenia of the lumbar spine. Bone densitometry of theleft hip is within normal limits. Reported By: MICHELLE POOLE M.D. :56 TSH (28901) Comments: PATIENT WAS FASTINGPERFORMED BY: [facility]6370 [facility] [id number] TSH 1.535 {uIU/mL} (Normal) Range: 0.450-4.500 :56 CBC WITH MANUAL DIFF (16257) Comments: PATIENT WAS FASTINGClinical Information: ADD DRAW FEE [id number] ADD J 75977 PERFORMED BY: JENNA [facility] Tdnydz5507 [facility] [id number] Baso (Absolute) 0.0 {x10E3/uL} (Normal) Range: 0.0-0.2 Basos 0 % (Normal) Range: 0-3 Eos 2 % (Normal) Range: 0-7 Eos (Absolute) 0.1 {x10E3/uL} (Normal) Range: 0.0-0.4 Hematocrit 40.2 % (Normal) Range: 34.0-44.0 Hemoglobin 14.0 g/dL (Normal) Range: 11.5-15.0 Lymphs 33 % (Normal) Range: 14-46 Lymphs (Absolute) 2.1 {x10E3/uL} (Normal) Range: 0.7-4.5 MCH 31.2 pg (Normal) Range: 27.0-34.0 MCHC 34.8 g/dL (Normal) Range: 32.0-36.0 MCV 90 fL (Normal) Range: 80-98 Monocytes 10 % (Normal) Range: 4-13 Monocytes(Absolute) 0.6 {x10E3/uL} (Normal) Range: 0.1-1.0 Neutrophils 55 % (Normal) Range: 40-74 Neutrophils (Absolute) 3.5 {x10E3/uL} (Normal) Range: 1.8-7.8 Platelets 244 {x10E3/uL} (Normal) Range: 140-415 RBC 4.48 {x10E6/uL} (Normal) Range: 3.80-5.10 RDW 12.1 % (Normal) Range: 11.7-15.0 WBC 6.3 {x10E3/uL} (Normal) Range: 4.0-10.5 :56 METABOLIC PANEL, COMPREHENSIVE Comments: PATIENT WAS FASTINGPERFORMED BY: [facility] Ehrzgr1365 [facility] [id number] ([id number]) A/G Ratio 1.6 (Normal) Range: 1.1-2.5 Albumin, Serum 4.5 g/dL (Normal) Range: 3.6-4.8 Alkaline Phosphatase, S 100 [iU]/L (Normal) Range: 25-165 ALT (SGPT) 38 [iU]/L (Normal) Range: 0-40 AST (SGOT) 29 [iU]/L (Normal) Range: 0-40 Bilirubin, Total 0.6 mg/dL (Normal) Range: 0.1-1.2 BUN 17 mg/dL (Normal) Range: 5-26 BUN/Creatinine Ratio 24 (Normal) Range: 8-27 Calcium, Serum 9.9 mg/dL (Normal) Range: 8.5-10.6 Carbon Dioxide, Total 24 mmol/L (Normal) Range: 20-32 Chloride, Serum 104 mmol/L (Normal) Range: 97-108 Creatinine, Serum 0.70 mg/dL (Normal) Range: 0.57-1.00 Globulin, Total 2.9 g/dL (Normal) Range: 1.5-4.5 Glom Filt Rate, Est >59 mL/min/1.73 (Normal) Glucose, Serum 97 mg/dL (Normal) Range: 65-99 If -Turkish >59 mL/min/1.73 Comments: Note: Persistent reduction for 3 months or more in an eGFR<60 mL/min/1.73 m2 defines CKD. Patients with eGFR values>/=60 mL/min/1.73 m2 may also have CKD if evidence of persistentproteinur ia is (Normal) present. Additional information may be found atwww.kdoqi.org. Potassium, Serum 5.0 mmol/L (Normal) Range: 3.5-5.2 Protein, Total, Serum 7.4 g/dL (Normal) Range: 6.0-8.5 Sodium, Serum 143 mmol/L (Normal) Range: 135-145 14-Ioh-04967:56 LIPID PANEL (87683) Comments: PATIENT WAS FASTINGPERFORMED BY: [facility] Fjcuui7124 [facility] [id number] Cholesterol, Total 143 mg/dL (Normal) Range: 100-199 HDL Cholesterol 43 mg/dL (Normal) Comments: According to ATP-III Guidelines, HDL-C >59 mg/dL is considered anegative risk factor for CHD. LDL Cholesterol Calc 74 mg/dL (Normal) Range: 0-99 LDL/HDL Ratio 1.7 {ratio_units} (Normal) Range: 0.0-3.2 Triglycerides 132 mg/dL (Normal) Range: 0-149 VLDL Cholesterol Abran 26 mg/dL (Normal) Range: 5-40 :52 HgA1C , Office (33241) Comments: done km HgA1C , Office 5.7 % (Normal) Range: 4.6 - 7.1 :52 Blood Glucose , Office (29437) Comments: done km Blood Glucose , Office 105 (Normal) :50 MICROALBUMIN: CREATININE RATIO Comments: PATIENT NOT FASTINGClinical Information: ADD [id number] PERFORMED BY: [employer] Hadynd6121 [facility] [id number] (25977) AND (33869) Microalbum.,U,Random 5.5 ug/mL (Normal) Range: 0.0-17.0 :28 Blood Glucose , Office (37521) Blood Glucose , Office 102 (Normal) :28 HgA1C , Office (30467) HgA1C , Office 5.7 % (Normal) Range: 4.6 - 7.1 :28 GLUP 143 mg/dL (Abnormal) Comments: GLU,2HPPG 75gm GLUC PPG GLUP from 0620:[id number]. Comments: Glucose result from 140 to <200 mg/dL suggestsIMPAIRED GLUCOSE HOMEOSTASIS per A.D.A. criteria. :58 Hepatic Function Panel (7) Comments: PERFORMED BY: [facility] Qrsbhx8970 [facility] [id number] Albumin, Serum 4.6 g/dL (Normal) Range: 3.6-4.8 Alkaline Phosphatase, S 97 [iU]/L (Normal) Range: 25-165 ALT (SGPT) 28 [iU]/L (Normal) Range: 0-40 AST (SGOT) 24 [iU]/L (Normal) Range: 0-40 Bilirubin, Direct 0.17 mg/dL (Normal) Range: 0.00-0.40 Bilirubin, Total 0.8 mg/dL (Normal) Range: 0.1-1.2 Protein, Total, Serum 7.5 g/dL (Normal) Range: 6.0-8.5 82-Zdu-371496:58 Lipid Panel With LDL/HDL Comments: PERFORMED BY: [employer] [facility] [id number] Ratio Cholesterol, Total 166 mg/dL (Normal) Range: 100-199 HDL Cholesterol 49 mg/dL (Normal) Range: 40-59 LDL Cholesterol Calc 82 mg/dL (Normal) Range: 0-99 LDL/HDL Ratio 1.7 {ratio_units} (Normal) Range: 0.0-3.2 Triglycerides 177 mg/dL (Abnormal) Range: 0-149 VLDL Cholesterol Abran 35 mg/dL (Normal) Range: 5-40 03-Oct-20079:09 Influenza A+B Ag, EIA Comments: Clinical Information: SRC:NL PERFORMED BY: [employer] [facility] [id number] Influenza A Ag, EIA Negative (Normal) Influenza B Ag, EIA Negative (Normal) 03-Jpz-162451:10 ANTIPARIET 6486 13.8 {Units} (Normal) Range: 0.0-20.0 Comments: Negative 0.0 - 20.0 Equivocal 20.1 - 24.9 Positive >24.9 . Parietal Cell Antibodies are found in 90% of patients with pernicious anemia and 30% of first degree relatives with pernicious an emia.Performed At: [facility] Hwzwfy[address] [place] [address] [id number] 17-Mag-548444:43 Urinalysis, Office (18117) Comments: done km UA - BILIRUBIN Negative (Normal) UA - BLOOD Negative (Normal) UA - GLUCOSE Negative (Normal) UA - KETONES Negative mg/dL (Normal) UA - LEUKOCYTE ESTERASE Negative (Normal) UA - NITRITE Negative (Normal) UA - PH 7.0 (Normal) UA - PROTEIN Negative mg/dL (Normal) UA - SPECIFIC GRAVITY 1.010 (Normal) URINE UROBILINGN EDITH TIMED Normal mg/dL (Normal) 92-Mth-183246:04 CBCD BASO% 0.5 % (Normal) Range: 0-1 EO% 2.0 % (Normal) Range: 0-5 HCT 44.5 % (Normal) Range: 37-47 HGB 15.4 g/dL (Normal) Range: 12.0-16.0 LY% 26.6 % (Normal) Range: 19-41 MCH 31.2 pg (Normal) Range: 27.0-32.0 MCHC 34.6 g/dL (Normal) Range: 32-36 MCV 90.2 fL (Normal) Range: 81-99 MONO% 8.1 % (Normal) Range: 0-10 MPV 8.6 fL (Normal) Range: 6.5-12.0 NEUT% 62.8 % (Normal) Range: 47-70 PLT 247 K/mm3 (Normal) Range: 150-450 RBC 4.93 {M/mm3} (Normal) Range: 4.2-5.4 RDW 12.1 % (Normal) Range: 11.6-14.6 WBC 7.8 K/mm3 (Normal) Range: 4.4-11.0 50-Kts-941694:04 COMP METABOLIC A/G 1.2 {RATIO} (Normal) Range: 0.9-2.4 ALB 4.3 g/dL (Normal) Range: 3.4-5.0 ALK P 99 U/L (Normal) Range: 50-136 ALT 60 [iU]/L (Normal) Range: 30-65 AST 35 U/L (Normal) Range: 15-37 BUN 15 mg/dL (Normal) Range: 7-18 BUN/CRE 18.8 {RATIO} (Normal) Range: 10-20 CA 9.1 mg/dL (Normal) Range: 8.5-10.1 CL 104 mmol/L (Normal) Range: 98-107 CO2 25.7 mmol/L (Normal) Range: 21.0-32.0 Comments: Please Note Reference Interval Change CREAT,SERUM 0.8 mg/dL (Normal) Range: 0.6-1.0 GAP 9 (Normal) Range: 5-15 GLOB 3.7 g/dL (Normal) Range: 2.7-4.2 Comments: Please Note Reference Interval Change GLU 93 mg/dL (Normal) Range: 70-110 K 4.0 mmol/L (Normal) Range: 3.5-5.1 NA 139 mmol/L (Normal) Range: 136-145 T BILI 0.73 mg/dL (Normal) Range: 0.00-1.00 T PROT 8.0 g/dL (Normal) Range: 6.4-8.2 :04 ESR SED RATE 4 mm/h (Normal) Range: 0-30 :04 INTR FACT 11028 SeeNote (Normal) Comments: Result: Negative Performed At: [facility] [id number] :04 TSH 0.99 {uIU/mL} (Normal) Range: 0.34-4.82 :04 VITAMIN B12 341 pg/mL (Normal) Range: 211-911 :52 LIPID CHOL 239 mg/dL (Abnormal) Comments: <200 mg/dL Desirable 200-240 mg/dL Borderline >240 mg/dL High Risk HDL 36 mg/dL (Normal) Comments: Reference Range HDL <40 mg/dL Low HDL Cholesterol HDL >or= 60 mg/dL High HDL Cholesterol LDL 152 mg/dL (Abnormal) Range: 0-130 TRIG 255 mg/dL (Abnormal) Comments: Serum Triglycerides Reference Interval Normal <150 mg/dL Borderline high 150 - 199 mg/dL High 200 - 499 mg/dL Very High > or = 500 mg/dL VLDL 51 mg/dL (Abnormal) Range: 5-40 91-Orh-587526:00 CULTURE, URINE URINE CULTURE See Note (Normal) Comments: Predominant organism is a gram positive suraj, probableLacotobacillus species. COLONY COUNT 80,000- 100,000 ORGANISM 1: MIXED GRAM POSITIVE ORGANISMS 83-Ohq-548958:59 Urinalysis, Office (46528) UA - BILIRUBIN Negative (Normal) UA - BLOOD Non Hemolyzed Trace (Normal) UA - GLUCOSE Negative (Normal) UA - KETONES Negative mg/dL (Normal) UA - LEUKOCYTE ESTERASE Negative (Normal) Comments: aw UA - NITRITE Negative (Normal) UA - PH 6.0 (Normal) UA - PROTEIN Negative mg/dL (Normal) UA - SPECIFIC GRAVITY 1.025 (Normal) URINE UROBILINGN EDITH TIMED Normal mg/dL (Normal) :31 MAMM, BILAT SCRN DIGITAL & CAD Radiology Report See Note (Normal) Comments: Exam Number: [id number] MAMMOGRAPHY, BILATERAL SCREENING DIGITAL AND CAD HISTORYRoutine screening. Full field digital images were obtained in mediolateral oblique,craniocaudal and cleavage projections. CAD images were reviewed. [facility] [place] There is moderately dense fibroglandular parenchyma present. There isno skin thi ckening or retraction, architectural distortion, or clusterof suspicious microcalcifications. There is an area of asymmetricalparenchymal density in the upper outer quadrant of the left breastwhich is stable. If there is no suspicious palpable abnormality,followup mammogram in 1 year is recommended. IMPRESSIONThere is no radiographic evidence of malignancy identified. FINAL ASSESSMENTBenign findings . BIRADS Category 2. A letter regarding these results has been sent to the patient. This interpretation was rendered by a radiologist certified under theMammography Quality Standards Act of 1992 (MQSA ). The mammograms werealso examined with computer-aided detection software ([employer].). Reported By: MICHELLE POOLE M.D. 87-Ccf-798742:08 DEXA BONE DENSITY STUDY (HP) Radiology Report See Note (Normal) Comments: Exam Number: [id number] BONE DENSITOMETRY HISTORYPostmenopausal. TECHNIQUE Bone densitometry of the lumbar spine and left hip was performed. Thebest criteria for evaluation of osteoporosis is the T- value whichrepresents the comparison of the patient's bone mass to an expectedpeak bone mass. For most patients, the mean T-value of L1 through L4and the T-value of the total left hip are most useful. FINDINGSIn this patient, the mean T-value of L1 through L4 is -1.9 which is inthe range of osteopenia. Digital lateral view for evaluation ofvertebral deformity only demonstrates slight loss of anter ior heightof T6, 7, and 8. The T-value of the left femoral neck is -0.4 whichis normal. The T-value of the total left hip is 0.5 which is normal. IMPRESSIONThere is osteopenia of the lumbar spine. Yossi ne densitometry of thetotal left hip is within normal limits. Reported By: MICHELLE POOLE M.D. 70-Wzr-043419:14 CBCD,SMEAR DIFF CELLS COUNTED 100 (Normal) EOS 5 % (Normal) Range: 0-5 HCT 41.8 % (Normal) Range: 37-47 HGB 14.6 g/dL (Normal) Range: 12.0-16.0 LYMPH 25 % (Normal) Range: 19-41 MCH 30.8 pg (Normal) Range: 27.0-32.0 MCHC 35.0 g/dL (Normal) Range: 32-36 MCV 87.9 fL (Normal) Range: 81-99 MONOCYTE 7 % (Normal) Range: 0-10 PLT 259 K/mm3 (Normal) Range: 150-450 PLT EST SeeNote (Normal) Comments: Result: ADEQUATE RBC 4.75 {M/mm3} (Normal) Range: 4.2-5.4 RDW 12.0 % (Normal) Range: 11.6-14.6 RED CELL MORPH SeeNote {NORMAL} (Normal) Comments: Result: NORM C&C SEGS 63 % (Normal) Range: 47-70 WBC 7.3 K/mm3 (Normal) Range: 4.4-11.0 [id number] COMP METABOLIC A/G 1.2 {RATIO} (Normal) Range: 0.9-2.4 ALB 4.1 g/dL (Normal) Range: 3.4-5.0 ALK P 94 U/L (Normal) Range: 50-136 ALT 43 [iU]/L (Normal) Range: 30-65 AST 25 U/L (Normal) Range: 15-37 BUN 15 mg/dL (Normal) Range: 7-18 BUN/CRE 21.4 {RATIO} (Abnormal) Range: 10-20 CA 8.6 mg/dL (Normal) Range: 8.5-10.1 CL 102 mmol/L (Normal) Range: 98-107 CO2 27.8 mmol/L (Normal) Range: 22.0-29.0 CREAT,SERUM 0.7 mg/dL (Normal) Range: 0.6-1.0 GAP 8 (Normal) Range: 5-15 GLOB 3.3 g/dL (Normal) Range: 2.3-3.5 GLU 89 mg/dL (Normal) Range: 70-110 K 3.8 mmol/L (Normal) Range: 3.5-5.1 NA 138 mmol/L (Normal) Range: 136-145 T BILI 0.76 mg/dL (Normal) Range: 0.00-1.00 T PROT 7.4 g/dL (Normal) Range: 6.4-8.2 :14 LIPID CHOL 251 mg/dL (Abnormal) Comments: <200 mg/dL Desirable 200-240 mg/dL Borderline >240 mg/dL High Risk HDL 42 mg/dL (Normal) Comments: Reference Range HDL <40 mg/dL Low HDL Cholesterol HDL >or= 60 mg/dL High HDL Cholesterol LDL 173 mg/dL (Abnormal) Range: 0-130 TRIG 182 mg/dL (Normal) Comments: Serum Triglycerides Reference Interval Normal <150 mg/dL Borderline high 150 - 199 mg/dL High 200 - 499 mg/dL Very High > or = 500 mg/dL VLDL 36 mg/dL (Normal) Range: 5-40 :14 TSH 0.87 {uIU/mL} (Normal) Range: 0.34-4.82 [id number] Urinalysis, Office ([id number]) Comments: ABN signed UA - BILIRUBIN Negative (Normal) UA - BLOOD Non Hemolyzed Trace (Normal) UA - GLUCOSE Negative (Normal) UA - KETONES Negative mg/dL (Normal) UA - LEUKOCYTE ESTERASE Negative (Normal) UA - NITRITE Negative (Normal) UA - PH 5.0 (Normal) UA - PROTEIN Negative mg/dL (Normal) UA - SPECIFIC GRAVITY 1.025 (Normal) URINE UROBILINGN EDITH 2 mg/dL (Normal) TIMED ABRIL 117 U/L (Abnormal) Range: 25-115 :32 C-REACTIVE PROT < 0.50 mg/L (Normal) Range: 0.0-6.0 :32 Comments: Test performed using the Dimension C-Reactive ProteinExtended Range assay method. This assay meets the AHA/CDC 2003 recommendations fordetermining patients at high risk for cardiovasculardisease. Reference: High risk CRP >3.0 mg/L :32 CBCD BASO% 0.3 % (Normal) Range: 0-1 EO% 1.0 % (Normal) Range: 0-5 HCT 41.0 % (Normal) Range: 37-47 HGB 14.3 g/dL (Normal) Range: 12.0-16.0 LY% 22.4 % (Normal) Range: 19-41 MCH 30.5 pg (Normal) Range: 27.0-32.0 MCHC 34.9 g/dL (Normal) Range: 32-36 MCV 87.2 fL (Normal) Range: 81-99 MONO% 5.3 % (Normal) Range: 0-10 MPV 8.0 fL (Normal) Range: 6.5-12.0 NEUT% 71.0 % (Abnormal) Range: 47-70 PLT 251 K/mm3 (Normal) Range: 150-450 RBC 4.71 {M/mm3} (Normal) Range: 4.2-5.4 RDW 12.1 % (Normal) Range: 11.6-14.6 WBC 8.0 K/mm3 (Normal) Range: 4.4-11.0 :32 H.PYLORI [id number] < 0.9 U/mL (Normal) Range: 0.0-0.8 Comments: Negative <0.9 Indeterminate 0.9 - 1.0 Positive >1.0Performed At: [facility] [id number] [place], [place] [id number] LIPASE 188 U/L (Normal) Range: 114-286 :32 LIVER ALB 4.4 g/dL (Normal) Range: 3.4-5.0 ALK P 85 U/L (Normal) Range: 50-136 ALT 42 [iU]/L (Normal) Range: 30-65 AST 25 U/L (Normal) Range: 15-37 D BILI 0.10 mg/dL (Normal) Range: 0.00-0.30 T BILI 0.88 mg/dL (Normal) Range: 0.00-1.00 T PROT 7.7 g/dL (Normal) Range: 6.4-8.2 :32 LYTES CL 105 mmol/L (Normal) Range: 98-107 CO2 28.8 mmol/L (Normal) Range: 22.0-29.0 GAP 7 (Normal) Range: 5-15 K 4.1 mmol/L (Normal) Range: 3.5-5.1 NA 141 mmol/L (Normal) Range: 136-145 Plan of Care Name Dates Details Instructions Bronchitis : Acute Bronchitis: Brief Version *: bronchitis Indication: Bronchitis Abnormal lung sounds : Follow up if no improvement or if symptoms worsen Indication: Abnormal lung sounds Nonsmoker : Eprescribed prescriptions (G8553) Indication: Nonsmoker Thyroid nodule : Reviewed Livestock Nutritionist Letter Indication: Thyroid nodule Elevated blood-pressure reading without diagnosis of hypertension : BP MONITORING - SELF Indication: Elevated blood-pressure reading without diagnosis of hypertension Diabetes mellitus type II, controlled, with no complications : Follow up in 3 months Indication: Diabetes mellitus type II, controlled, with no complications Mixed hyperlipidemia : Cholesterol mgmt Indication: Mixed hyperlipidemia Fatty liver : Diet, Exercise, and Wt loss Indication: Fatty liver Diarrhea, unspecified type : *Abd Pain Red Flags Indication: Diarrhea, unspecified type Diarrhea, unspecified type : Diarrhea instructions Indication: Diarrhea, unspecified type Elevated LFTs (Renamed from Elevated liver function tests) : Reviewed Lab Indication: Elevated LFTs (Renamed from Elevated liver function tests) Pre-operative general physical examination : Reviewed Lab Indication: Pre-operative general physical examination Chronic GERD : GERD Education Indication: Chronic GERD Mixed hyperlipidemia : Cholesterol mgmt Indication: Mixed hyperlipidemia Diabetes mellitus type II, controlled, with no complications : *Diabetes Education Indication: Diabetes mellitus type II, controlled, with no complications Mixed hyperlipidemia : Continue Current Prescription(s) Indication: Mixed hyperlipidemia Mixed hyperlipidemia : Reviewed Lab Indication: Mixed hyperlipidemia Fatty liver : Reviewed Lab Indication: Fatty liver Mixed hyperlipidemia : Cholesterol mgmt Indication: Mixed hyperlipidemia Fatty liver : Diet, Exercise, and Wt loss Indication: Fatty liver Reflux gastritis : GERD Education Indication: Reflux gastritis Thyroid nodule : Reviewed Livestock Nutritionist Letter Indication: Thyroid nodule Bladder prolapse, female, acquired : Reviewed Livestock Nutritionist Letter Indication: Bladder prolapse, female, acquired Diabetes mellitus type II, controlled, with no complications : Follow up in 2.5 months- pre-op/gen med Indication: Diabetes mellitus type II, controlled, with no complications Diabetes mellitus type II, controlled, with no complications : Eprescribed prescriptions ([id number]) Indication: Diabetes mellitus type II, controlled, with no complications Nonsmoker : Eprescribed prescriptions (G8553) Indication: Nonsmoker Elevated blood-pressure reading without diagnosis of hypertension : Follow up in 2 weeks Indication: Elevated blood-pressure reading without diagnosis of hypertension Nonsmoker : Eprescribed prescriptions (G8553) Indication: Nonsmoker Diabetes mellitus type II, controlled, with no complications : Reviewed Lab Indication: Diabetes mellitus type II, controlled, with no complications Fatty liver : Diet, Exercise, and Wt loss Indication: Fatty liver Chronic GERD : GERD Education Indication: Chronic GERD Diabetes mellitus type II, controlled, with no complications : *Diabetes Education Indication: Diabetes mellitus type II, controlled, with no complications Mixed hyperlipidemia : Cholesterol mgmt Indication: Mixed hyperlipidemia Diabetes mellitus type II, controlled, with no complications : Follow up in 3 months Indication: Diabetes mellitus type II, controlled, with no complications Carotid stenosis, bilateral : Reviewed Diagnostic Tests Indication: Carotid stenosis, bilateral Thyroid nodule : Reviewed Livestock Nutritionist Letter Indication: Thyroid nodule Diabetes mellitus type II, controlled, with no complications : Follow up in 3 months Indication: Diabetes mellitus type II, controlled, with no complications Chronic GERD : GERD Education Indication: Chronic GERD Fatty liver : Diet, Exercise, and Wt loss Indication: Fatty liver Fatty liver : Continue Current Prescription(s) Indication: Fatty liver Mixed hyperlipidemia : Cholesterol mgmt Indication: Mixed hyperlipidemia Diabetes mellitus type II, controlled, with no complications : Eprescribed prescriptions ([id number]) Indication: Diabetes mellitus type II, controlled, with no complications SOB (shortness of breath) : Follow up tomorrow, as needed Indication: SOB (shortness of breath) BMI 26.0-26.9,adult : Eprescribed prescriptions (G8553) Indication: BMI 26.0-26.9,adult Facial pressure : Follow up if no improvement or if symptoms worsen Indication: Facial pressure BMI 27.0-27.9,adult : Eprescribed prescriptions (G8553) Indication: BMI 27.0-27.9,adult Encounter for annual general medical examination with abnormal findings in adult : fall reduction handout Indication: Encounter for annual general medical examination with abnormal findings in adult Encounter for annual general medical examination with abnormal findings in adult : elderly packet given Indication: Encounter for annual general medical examination with abnormal findings in adult Encounter for annual general medical examination with abnormal findings in adult : advance planning information Indication: Encounter for annual general medical examination with abnormal findings in adult Encounter for annual general medical examination with abnormal findings in adult : Self breast exam Indication: Encounter for annual general medical examination with abnormal findings in adult Post-menopausal : Eprescribed prescriptions (G8553) Indication: Post-menopausal Urgency of urination : Follow up if no improvement or if symptoms worsen Indication: Urgency of urination Urgency of urination : Bladder Infection (Cystitis): cystitis Indication: Urgency of urination BMI 27.0-27.9,adult : Eprescribed prescriptions (G8553) Indication: BMI 27.0-27.9,adult Diabetes mellitus type II, controlled, with no complications : Follow up in 3 months- gen med Indication: Diabetes mellitus type II, controlled, with no complications Diabetes mellitus type II, controlled, with no complications : *Diabetes Education Indication: Diabetes mellitus type II, controlled, with no complications Fatty liver : Diet, Exercise, and Wt loss Indication: Fatty liver Chronic GERD : GERD Education Indication: Chronic GERD Mixed hyperlipidemia : Cholesterol mgmt Indication: Mixed hyperlipidemia BMI 27.0-27.9,adult : Eprescribed prescriptions (G8553) Indication: BMI 27.0-27.9,adult Mixed hyperlipidemia : Reviewed Lab Indication: Mixed hyperlipidemia Allergy to contrast media (used for diagnostic x-rays) : Solu Medrol Injection/ Education Indication: Allergy to contrast media (used for diagnostic x-rays) Abdominal pain, acute, right lower quadrant : Reviewed Diagnostic Tests Indication: Abdominal pain, acute, right lower quadrant Abdominal pain, acute, right lower quadrant : Reviewed Lab Indication: Abdominal pain, acute, right lower quadrant Abdominal pain, acute, right lower quadrant : Eprescribed prescriptions (G8553) Indication: Abdominal pain, acute, right lower quadrant Bone pain : Follow up - Make appt after diagnostic tests- 30 mins pls Indication: Bone pain Chronic GERD : GERD Education Indication: Chronic GERD Diabetes mellitus type 2, uncontrolled, without complications : Follow up in 3 months- gen med Indication: Diabetes mellitus type 2, uncontrolled, without complications Mixed hyperlipidemia : Cholesterol mgmt Indication: Mixed hyperlipidemia Diabetes mellitus type 2, uncontrolled, without complications : *Diabetes Education Indication: Diabetes mellitus type 2, uncontrolled, without complications Mixed hyperlipidemia : Eprescribed prescriptions (G8553) Indication: Mixed hyperlipidemia Diabetes mellitus type II, controlled, with no complications : Follow up in 3 months Indication: Diabetes mellitus type II, controlled, with no complications Diabetes mellitus type II, controlled, with no complications : Diet, Exercise, and Wt loss Indication: Diabetes mellitus type II, controlled, with no complications Chronic GERD : GERD Education Indication: Chronic GERD Diabetes mellitus type II, controlled, with no complications : *Diabetes Education Indication: Diabetes mellitus type II, controlled, with no complications Mixed hyperlipidemia : Cholesterol mgmt Indication: Mixed hyperlipidemia Fatty liver : Diet, Exercise, and Wt loss Indication: Fatty liver Nonsmoker : Eprescribed prescriptions (G8553) Indication: Nonsmoker Diabetes mellitus type II, controlled, with no complications : Follow up in 3 months Indication: Diabetes mellitus type II, controlled, with no complications Diabetes mellitus type II, controlled, with no complications : *Diabetes Education Indication: Diabetes mellitus type II, controlled, with no complications Chronic GERD : GERD Education Indication: Chronic GERD Fatty liver : Diet, Exercise, and Wt loss Indication: Fatty liver Mixed hyperlipidemia : Cholesterol mgmt Indication: Mixed hyperlipidemia Diabetes mellitus type II, controlled, with no complications : Eprescribed prescriptions (G8553) Indication: Diabetes mellitus type II, controlled, with no complications Diabetes mellitus type II, controlled, with no complications : Diabetes and Exercise: Preventing Low Blood Sugar: blood sugar Indication: Diabetes mellitus type II, controlled, with no complications Annual Medicare Phyiscal WITHOUT abnormal findings (Renamed from Encounter for general adult medical examination without abnormal findings) : fall reduction handout Indication: Annual Medicare Phyiscal WITHOUT abnormal findings (Renamed from Encounter for general adult medical examination without abnormal findings) Annual Medicare Phyiscal WITHOUT abnormal findings (Renamed from Encounter for general adult medical examination without abnormal findings) : elderly packet given Indication: Annual Medicare Phyiscal WITHOUT abnormal findings (Renamed from Encounter for general adult medical examination without abnormal findings) Annual Medicare Phyiscal WITHOUT abnormal findings (Renamed from Encounter for general adult medical examination without abnormal findings) : advance planning information Indication: Annual Medicare Phyiscal WITHOUT abnormal findings (Renamed from Encounter for general adult medical examination without abnormal findings) Annual Medicare Phyiscal WITHOUT abnormal findings (Renamed from Encounter for general adult medical examination without abnormal findings) : *Weight Loss Discussion Indication: Annual Medicare Phyiscal WITHOUT abnormal findings (Renamed from Encounter for general adult medical examination without abnormal findings) Encounter for screening for malignant neoplasm of colon (Renamed from Special screening for malignant neoplasms, colon) : *Colon Cancer Screening Indication: Encounter for screening for malignant neoplasm of colon (Renamed from Special screening for malignant neoplasms, colon) Allergic rhinitis : Follow up in 1-2 month fu new rx and do ekg for drug monitoring Indication: Allergic rhinitis Aspiration pneumonia : Reviewed Lab Indication: Aspiration pneumonia Aspiration pneumonia : Reviewed Livestock Nutritionist Letter Indication: Aspiration pneumonia Reflux gastritis : Continue Current Prescription(s) Indication: Reflux gastritis Diabetes mellitus type 2, uncontrolled, without complications : Follow up in 3 months Indication: Diabetes mellitus type 2, uncontrolled, without complications Reflux gastritis : GERD Education Indication: Reflux gastritis Reflux gastritis : Caffeine avoidance Indication: Reflux gastritis Elevated blood-pressure reading without diagnosis of hypertension : BP MONITORING - SELF Indication: Elevated blood-pressure reading without diagnosis of hypertension Hyperlipidemia : Cholesterol mgmt Indication: Hyperlipidemia Diabetes mellitus type 2, uncontrolled, without complications : *Diabetes Education Indication: Diabetes mellitus type 2, uncontrolled, without complications Diabetes mellitus type 2, uncontrolled, without complications : Diet, Exercise, and Wt loss Indication: Diabetes mellitus type 2, uncontrolled, without complications Diabetes mellitus type 2, uncontrolled, without complications : Eprescribed prescriptions (G8553) Indication: Diabetes mellitus type 2, uncontrolled, without complications Urinary frequency : Eprescribed prescriptions (G8553) Indication: Urinary frequency Sinus congestion : Follow up - Make appt after diagnostic tests Indication: Sinus congestion SOB (shortness of breath) on exertion : Follow up - Make appt after diagnostic tests Indication: SOB (shortness of breath) on exertion Palpitations : *palpitation discusssion Indication: Palpitations Wound discharge : Eprescribed prescriptions (G8553) Indication: Wound discharge Wound discharge : Follow up if no improvement or if symptoms worsen Indication: Wound discharge Wound discharge : Eprescribed prescriptions (G8553) Indication: Wound discharge Abnormal chest xray : Follow up in 3 months Indication: Abnormal chest xray Aspiration pneumonia : Eprescribed prescriptions (G8553) Indication: Aspiration pneumonia Back pain : Follow up in 2 weeks Indication: Back pain SOB (shortness of breath) on exertion : Eprescribed prescriptions (G8553) Indication: SOB (shortness of breath) on exertion Colicky RUQ abdominal pain : Eprescribed prescriptions (G8553) Indication: Colicky RUQ abdominal pain Bilateral low back pain without sciatica : Reviewed Diagnostic Tests Indication: Bilateral low back pain without sciatica Right wrist pain : Reviewed Diagnostic Tests Indication: Right wrist pain Hyperlipidemia : Reviewed Lab Indication: Hyperlipidemia Diabetes mellitus type II, controlled, with no complications : Reviewed Lab Indication: Diabetes mellitus type II, controlled, with no complications Acid indigestion : Continue Current Prescription(s) Indication: Acid indigestion Hyperlipidemia : Cholesterol mgmt Indication: Hyperlipidemia Arthralgia of multiple sites : Follow up in 1 week- go over results Indication: Arthralgia of multiple sites Diabetes mellitus type II, controlled, with no complications : Diabetes and Exercise: Preventing Low Blood Sugar: blood sugar Indication: Diabetes mellitus type II, controlled, with no complications Osteopenia : Reviewed Diagnostic Tests Indication: Osteopenia Diabetes mellitus type 2, uncontrolled, without complications : Follow up in 3 months Indication: Diabetes mellitus type 2, uncontrolled, without complications Fatty liver : Diet, Exercise, and Wt loss Indication: Fatty liver Hyperlipidemia : Cholesterol mgmt Indication: Hyperlipidemia Acute recurrent ethmoidal sinusitis : *Antibiotic Usage Education - Female Indication: Acute recurrent ethmoidal sinusitis Diabetes mellitus type 2, uncontrolled, without complications : Eprescribed prescriptions (G8553) Indication: Diabetes mellitus type 2, uncontrolled, without complications Diabetes mellitus type 2, uncontrolled, without complications : Diabetes and Exercise: Preventing Low Blood Sugar: blood sugar Indication: Diabetes mellitus type 2, uncontrolled, without complications Encounter for screening for malignant neoplasm of colon (Renamed from Special screening for malignant neoplasms, colon) : *Colon Cancer Screening Indication: Encounter for screening for malignant neoplasm of colon (Renamed from Special screening for malignant neoplasms, colon) Annual Medicare Phyiscal WITHOUT abnormal findings (Renamed from Encounter for general adult medical examination without abnormal findings) : Eprescribed prescriptions (G8553) Indication: Annual Medicare Phyiscal WITHOUT abnormal findings (Renamed from Encounter for general adult medical examination without abnormal findings) GERD (gastroesophageal reflux disease) : GERD Education Indication: GERD (gastroesophageal reflux disease) Diabetes mellitus type II, controlled, with no complications : Follow up in 2 months medicare physcial Indication: Diabetes mellitus type II, controlled, with no complications Diabetes mellitus type II, controlled, with no complications : Follow up in 3 months- gen med Indication: Diabetes mellitus type II, controlled, with no complications Mixed hyperlipidemia : Cholesterol mgmt Indication: Mixed hyperlipidemia Fatty liver : Eprescribed prescriptions (G8553) Indication: Fatty liver Thyroid nodule : Reviewed Lab Indication: Thyroid nodule Hyperlipidemia : Cholesterol mgmt Indication: Hyperlipidemia Diabetes mellitus type II, controlled, with no complications : Follow up in 3 months Indication: Diabetes mellitus type II, controlled, with no complications Diabetes mellitus type II, controlled, with no complications : *Diabetes Education Indication: Diabetes mellitus type II, controlled, with no complications Cough : Follow up if no improvement or if symptoms worsen Indication: Cough Dry skin : Follow up if no improvement or if symptoms worsen Indication: Dry skin Sinusitis, acute : *Antibiotic Usage Education - Female Indication: Sinusitis, acute Sinusitis, acute : Reviewed Diagnostic Tests Indication: Sinusitis, acute Sinusitis, acute : *URI Symptoms Indication: Sinusitis, acute Sinusitis, acute : *Antibiotic Usage Education - Female Indication: Sinusitis, acute GERD (gastroesophageal reflux disease) : GERD Education Indication: GERD (gastroesophageal reflux disease) Fatty liver : Diet, Exercise, and Wt loss Indication: Fatty liver Hyperlipidemia : Cholesterol mgmt Indication: Hyperlipidemia Diabetes mellitus type II, controlled, with no complications : Follow up in 3 months Indication: Diabetes mellitus type II, controlled, with no complications Diabetes mellitus type II, controlled, with no complications : Eprescribed prescriptions ([id number]) Indication: Diabetes mellitus type II, controlled, with no complications Diabetes mellitus type II, controlled, with no complications : Diabetes and Exercise: Preventing Low Blood Sugar: blood sugar Indication: Diabetes mellitus type II, controlled, with no complications Chronic nonallergic rhinitis : Eprescribed prescriptions (G8553) Indication: Chronic nonallergic rhinitis Dysuria : follow up for recheck urine 1 week after complete antibiotic Indication: Dysuria Dysuria : *UTI treatment Indication: Dysuria Dysuria : Water in diet, brief version Indication: Dysuria Encounter for Medicare annual wellness exam : fall reduction handout Indication: Encounter for Medicare annual wellness exam Encounter for Medicare annual wellness exam : elderly packet given Indication: Encounter for Medicare annual wellness exam Encounter for Medicare annual wellness exam : advance planning information Indication: Encounter for Medicare annual wellness exam Encounter for Medicare annual wellness exam : *Weight Loss Discussion Indication: Encounter for Medicare annual wellness exam Diabetes mellitus type II, controlled, with no complications : Follow up in 3 months Indication: Diabetes mellitus type II, controlled, with no complications GERD (gastroesophageal reflux disease) : GERD Education Indication: GERD (gastroesophageal reflux disease) Mixed hyperlipidemia : Cholesterol mgmt Indication: Mixed hyperlipidemia Diabetes mellitus type II, controlled, with no complications : Diet, Exercise, and Wt loss Indication: Diabetes mellitus type II, controlled, with no complications Diabetes mellitus type II, controlled, with no complications : *Diabetes Education Indication: Diabetes mellitus type II, controlled, with no complications Elevated blood-pressure reading without diagnosis of hypertension : Follow up in 1 month marianna bp and update news from specialist Indication: Elevated blood-pressure reading without diagnosis of hypertension Elevated blood-pressure reading without diagnosis of hypertension : BP MONITORING - SELF Indication: Elevated blood-pressure reading without diagnosis of hypertension Ultrasound scan abnormal : Reviewed Diagnostic Tests Indication: Ultrasound scan abnormal Diabetes mellitus type II, controlled, with no complications : *URI Treatment Indication: Diabetes mellitus type II, controlled, with no complications Diabetes mellitus type II, controlled, with no complications : *Antibiotic Usage Education - Female Indication: Diabetes mellitus type II, controlled, with no complications Vitamin D deficiency, unspecified : Continue Current Prescription(s) Indication: Vitamin D deficiency, unspecified Diabetes mellitus type II, controlled, with no complications : Eprescribed prescriptions ([id number]) Indication: Diabetes mellitus type II, controlled, with no complications Diabetes mellitus type II, controlled, with no complications : *Diabetes Education Indication: Diabetes mellitus type II, controlled, with no complications Mixed hyperlipidemia : Cholesterol mgmt Indication: Mixed hyperlipidemia Diabetes mellitus type II, controlled, with no complications : Follow up in 3 months gen med adn medicare physcial Indication: Diabetes mellitus type II, controlled, with no complications Localized, primary osteoarthritis of lower leg : Continue Current Prescription(s) Indication: Localized, primary osteoarthritis of lower leg Localized, primary osteoarthritis of lower leg : Follow up in 1 month Indication: Localized, primary osteoarthritis of lower leg Localized, primary osteoarthritis of lower leg : Reviewed Diagnostic Tests Indication: Localized, primary osteoarthritis of lower leg Neoplasm of uncertain behavior of skin : Skin Infection - Signs and Symptoms Indication: Neoplasm of uncertain behavior of skin Neoplasm of uncertain behavior of skin : Shave Biopsy without Epi Indication: Neoplasm of uncertain behavior of skin Pain in unspecified joint : Follow up in 1 week Indication: Pain in unspecified joint Pain in unspecified joint : Reviewed Lab Indication: Pain in unspecified joint SOB (shortness of breath) on exertion : Follow up in 3 weeks Indication: SOB (shortness of breath) on exertion Diabetes mellitus type II, controlled, with no complications : Follow up in 3months Indication: Diabetes mellitus type II, controlled, with no complications GERD (gastroesophageal reflux disease) : GERD Education Indication: GERD (gastroesophageal reflux disease) Hyperlipidemia : Cholesterol mgmt Indication: Hyperlipidemia Diabetes mellitus type II, controlled, with no complications : Diet, Exercise, and Wt loss Indication: Diabetes mellitus type II, controlled, with no complications Diabetes mellitus type II, controlled, with no complications : *Diabetes Education Indication: Diabetes mellitus type II, controlled, with no complications Diabetes mellitus type II, controlled, with no complications : Follow up in 3 months Indication: Diabetes mellitus type II, controlled, with no complications Thyroid nodule : Reviewed Livestock Nutritionist Letter Indication: Thyroid nodule Sinusitis, acute : *URI Symptoms Indication: Sinusitis, acute Sinusitis, acute : *Antibiotic Usage Education - Female Indication: Sinusitis, acute Acid indigestion : GERD Education Indication: Acid indigestion Mixed hyperlipidemia : Cholesterol mgmt Indication: Mixed hyperlipidemia Diabetes mellitus type II, controlled, with no complications : Diet, Exercise, and Wt loss Indication: Diabetes mellitus type II, controlled, with no complications Diabetes mellitus type II, controlled, with no complications : *Diabetes Education Indication: Diabetes mellitus type II, controlled, with no complications Eustachian tube dysfunction : Follow up mid august for general medical Indication: Eustachian tube dysfunction Vitamin D deficiency, unspecified : Reviewed Lab Indication: Vitamin D deficiency, unspecified Sinusitis, acute : *Antibiotic Usage Education - Female Indication: Sinusitis, acute Headache : Headaches and Eye Problems: headache Indication: Headache Encounter for Medicare annual wellness exam : *Colon Cancer Screening Indication: Encounter for Medicare annual wellness exam Encounter for Medicare annual wellness exam : fall reduction handout Indication: Encounter for Medicare annual wellness exam Encounter for Medicare annual wellness exam : elderly packet given Indication: Encounter for Medicare annual wellness exam Encounter for Medicare annual wellness exam : advance planning information Indication: Encounter for Medicare annual wellness exam Thyroid nodule : Reviewed Livestock Nutritionist Letter us up to date -- ses endo Indication: Thyroid nodule Diverticulosis of colon : Diverticulosis Indication: Diverticulosis of colon Mixed hyperlipidemia : Cholesterol mgmt Indication: Mixed hyperlipidemia Diabetes mellitus type II, controlled, with no complications : Diabetes Mellitus: Type 2 *: blood sugar Indication: Diabetes mellitus type II, controlled, with no complications Diabetes mellitus type II, controlled, with no complications : Follow up in 3 months: gen med adn add medicare physcial Indication: Diabetes mellitus type II, controlled, with no complications Diverticulosis of colon : Diverticulosis Indication: Diverticulosis of colon Mixed hyperlipidemia : Cholesterol mgmt Indication: Mixed hyperlipidemia Diabetes mellitus type II, controlled, with no complications : *Diabetes Education Indication: Diabetes mellitus type II, controlled, with no complications SOB (shortness of breath) on exertion : Breathing Exercises: breathing Indication: SOB (shortness of breath) on exertion FATIGUE : Reviewed Lab Indication: FATIGUE Pain in unspecified joint : Reviewed Lab Indication: Pain in unspecified joint Diabetes mellitus type II, controlled, with no complications : Follow up in 3 months Indication: Diabetes mellitus type II, controlled, with no complications Diverticulosis of colon : Follow up in 1 week Indication: Diverticulosis of colon FATIGUE : *fatigue education Indication: FATIGUE Diverticulosis of colon : Diverticulosis Indication: Diverticulosis of colon GERD (gastroesophageal reflux disease) : GERD Education Indication: GERD (gastroesophageal reflux disease) Diabetes mellitus type II, controlled, with no complications : Diet, Exercise, and Wt loss Indication: Diabetes mellitus type II, controlled, with no complications Diabetes mellitus type II, controlled, with no complications : *Diabetes Education Indication: Diabetes mellitus type II, controlled, with no complications Hyperlipidemia : High Cholesterol (Hypercholesterolemia) *: cardiovascular health Indication: Hyperlipidemia Diabetes mellitus type II, controlled, with no complications : Follow up in 3 months Indication: Diabetes mellitus type II, controlled, with no complications SOB (shortness of breath) on exertion : Reviewed Livestock Nutritionist Letter Indication: SOB (shortness of breath) on exertion Hiatal hernia : GERD Education Indication: Hiatal hernia Mixed hyperlipidemia : Cholesterol mgmt Indication: Mixed hyperlipidemia Diabetes mellitus type II, controlled, with no complications : Diabetes Overview (Living with Diabetes): type 2 diabetes Indication: Diabetes mellitus type II, controlled, with no complications SOB (shortness of breath) on exertion : Breathing Exercises: breathing exercises Indication: SOB (shortness of breath) on exertion SOB (shortness of breath) on exertion : Follow up in 2 weeks Indication: SOB (shortness of breath) on exertion Allergic rhinitis : Continue Current Prescription(s) Indication: Allergic rhinitis Hiatal hernia : GERD Education Indication: Hiatal hernia Goiter : Reviewed Diagnostic Tests Indication: Goiter Goiter : Reviewed Lab Indication: Goiter SOB (shortness of breath) on exertion : Reviewed Diagnostic Tests Indication: SOB (shortness of breath) on exertion SOB (shortness of breath) on exertion : Breathing Exercises: breathing Indication: SOB (shortness of breath) on exertion SOB (shortness of breath) on exertion : Breathing Exercises: breathing Indication: SOB (shortness of breath) on exertion Urinary frequency : Reviewed Lab Indication: Urinary frequency Urinary frequency : Reviewed Diagnostic Tests Indication: Urinary frequency Bladder Problems : Follow up in 1 week Indication: Bladder Problems Bladder Problems : Follow up if no improvement or if symptoms worsen Indication: Bladder Problems Dysuria : *UTI treatment Indication: Dysuria Dysuria : Water in diet, brief version Indication: Dysuria Mixed hyperlipidemia : Reviewed Lab Indication: Mixed hyperlipidemia Diabetes mellitus type II, controlled, with no complications : Reviewed Lab Indication: Diabetes mellitus type II, controlled, with no complications Mixed hyperlipidemia : *Cholesterol - Nonprescription Treatment Indication: Mixed hyperlipidemia Mixed hyperlipidemia : Cholesterol mgmt Indication: Mixed hyperlipidemia Diabetes mellitus type II, controlled, with no complications : Diabetes and Exercise: Preventing Low Blood Sugar: low blood sugar Indication: Diabetes mellitus type II, controlled, with no complications Mixed hyperlipidemia : *Cholesterol - Nonprescription Treatment Indication: Mixed hyperlipidemia Mixed hyperlipidemia : Cholesterol mgmt Indication: Mixed hyperlipidemia GERD (gastroesophageal reflux disease) : GERD Education Indication: GERD (gastroesophageal reflux disease) Displacement of lumbar intervertebral disc without myelopathy : Reviewed Diagnostic Tests Indication: 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 : Reviewed Livestock Nutritionist Letter: s/p one injection so far Indication: Displacement of lumbar intervertebral disc without myelopathy Diabetes mellitus type II, controlled, with no complications : Follow up in 3 months- do ekg at this visit Indication: Diabetes mellitus type II, controlled, with no complications Diabetes mellitus type II, controlled, with no complications : Diabetes Mellitus: Type 2 *: diabetes mellitus Indication: Diabetes mellitus type II, controlled, with no complications Diabetes mellitus type II, controlled, with no complications : Reviewed Lab Indication: Diabetes mellitus type II, controlled, with no complications Hyperlipidemia : Reviewed Lab Indication: Hyperlipidemia Hair abnormality : Reviewed Livestock Nutritionist Letter Indication: Hair abnormality GERD (gastroesophageal reflux disease) : GERD Education Indication: GERD (gastroesophageal reflux disease) Diabetes mellitus type II, controlled, with no complications : Follow up in 3 months Indication: Diabetes mellitus type II, controlled, with no complications Hyperlipidemia : *Cholesterol - Nonprescription Treatment Indication: Hyperlipidemia Hyperlipidemia : Cholesterol mgmt Indication: Hyperlipidemia GERD (gastroesophageal reflux disease) : GERD Education Indication: GERD (gastroesophageal reflux disease) Vitamin D deficiency, unspecified : Continue Current Prescription(s) Indication: Vitamin D deficiency, unspecified Hyperlipidemia : *Cholesterol - Nonprescription Treatment Indication: Hyperlipidemia Hyperlipidemia : Cholesterol mgmt Indication: Hyperlipidemia Diabetes mellitus type II, controlled, with no complications : Follow up in 3 months Indication: Diabetes mellitus type II, controlled, with no complications Diabetes mellitus type II, controlled, with no complications : Diet, Exercise, and Wt loss Indication: Diabetes mellitus type II, controlled, with no complications Diabetes mellitus type II, controlled, with no complications : *Diabetes Education Indication: Diabetes mellitus type II, controlled, with no complications Diabetes mellitus type 2, uncontrolled, without complications : *Colon Cancer Screening Indication: Diabetes mellitus type 2, uncontrolled, without complications Hyperlipidemia : *Cholesterol - Nonprescription Treatment Indication: Hyperlipidemia Hyperlipidemia : Cholesterol mgmt Indication: Hyperlipidemia GERD (gastroesophageal reflux disease) : GERD Education Indication: GERD (gastroesophageal reflux disease) Diabetes mellitus type 2, uncontrolled, without complications : Follow up in 3 months Indication: Diabetes mellitus type 2, uncontrolled, without complications Diabetes mellitus type 2, uncontrolled, without complications : Diet, Exercise, and Wt loss Indication: Diabetes mellitus type 2, uncontrolled, without complications Diabetes mellitus type 2, uncontrolled, without complications : *Diabetes Education Indication: Diabetes mellitus type 2, uncontrolled, without complications Pain of lower leg, unspecified laterality : FOLLOW UP IN 2 WEEKS Indication: Pain of lower leg, unspecified laterality Hair abnormality : Reviewed Lab Indication: Hair abnormality Vitamin D deficiency, unspecified : *ERGOCALCIFEROL DOSAGE PER SHEWMON Indication: Vitamin D deficiency, unspecified Mixed hyperlipidemia : CHOLESTEROL MGMT. Indication: Mixed hyperlipidemia Mixed hyperlipidemia : *Cholesterol - Nonprescription Treatment Indication: Mixed hyperlipidemia Mixed hyperlipidemia : *Cholesterol - Medication Side Effects Indication: Mixed hyperlipidemia Dysphagia, unspecified : Reviewed Livestock Nutritionist Letter Indication: Dysphagia, unspecified Abnormal glucose tolerance test : FOLLOW UP IN 4 MONTHS Indication: Abnormal glucose tolerance test Sinusitis, acute : *URI Symptoms Indication: Sinusitis, acute Sinusitis, acute : *Antibiotic Usage Education - Female Indication: Sinusitis, acute GERD (gastroesophageal reflux disease) : GERD Education Indication: GERD (gastroesophageal reflux disease) Osteopenia : *Calcium Education (KF) Indication: Osteopenia Osteopenia : *Bisphosphonate Education Indication: Osteopenia Abnormal glucose tolerance test : *Diabetes Education Indication: Abnormal glucose tolerance test Abnormal glucose tolerance test : Diet, Exercise, and Wt loss Indication: Abnormal glucose tolerance test Osteopenia : *Calcium Education (KF) Indication: Osteopenia Screening for malignant neoplasm of cervix : SELF BREAST EXAM Indication: Screening for malignant neoplasm of cervix Screening for malignant neoplasm of cervix : *Colon Cancer Screening Indication: Screening for malignant neoplasm of cervix Screening for malignant neoplasm of cervix : *Well Female Maintenance (KF) Indication: Screening for malignant neoplasm of cervix Mixed hyperlipidemia : *Cholesterol - Medication Side Effects Indication: Mixed hyperlipidemia Mixed hyperlipidemia : *Cholesterol - Nonprescription Treatment Indication: Mixed hyperlipidemia Mixed hyperlipidemia : CHOLESTEROL MGMT. Indication: Mixed hyperlipidemia Abnormal glucose tolerance test : Reviewed Lab Indication: Abnormal glucose tolerance test Low HDL (under 40) : Reviewed Lab Indication: Low HDL (under 40) Abnormal EKG : Reviewed Diagnostic Tests Indication: Abnormal EKG Elevated blood-pressure reading without diagnosis of hypertension : FOLLOW UP IN 3-4 weeks and rev lab Indication: Elevated blood-pressure reading without diagnosis of hypertension Abnormal glucose tolerance test : FOLLOW UP IN 4 MONTHS Indication: Abnormal glucose tolerance test Hyperlipidemia : CHOLESTEROL MGMT. Indication: Hyperlipidemia Hyperlipidemia : *Cholesterol - Nonprescription Treatment Indication: Hyperlipidemia GERD (gastroesophageal reflux disease) : GERD Education Indication: GERD (gastroesophageal reflux disease) Elevated blood-pressure reading without diagnosis of hypertension : BP MONITORING - SELF Indication: Elevated blood-pressure reading without diagnosis of hypertension Elevated blood-pressure reading without diagnosis of hypertension : HTN and Decongestants Indication: Elevated blood-pressure reading without diagnosis of hypertension Abnormal glucose tolerance test : Diet, Exercise, and Wt loss Indication: Abnormal glucose tolerance test Abnormal glucose tolerance test : *Diabetes Education Indication: Abnormal glucose tolerance test Hyperlipidemia : CHOLESTEROL MGMT. Indication: Hyperlipidemia Hyperlipidemia : Cholesterol - Nonprescription Treatment Indication: Hyperlipidemia Hyperlipidemia : Cholesterol - Medication Side Effects Indication: Hyperlipidemia Osteopenia : Well Female Maintenance (KF) Indication: Osteopenia Abnormal glucose tolerance test : FOLLOW UP IN 4 MONTHS Indication: Abnormal glucose tolerance test Hyperlipidemia : Continue Current Prescription(s) Indication: Hyperlipidemia Osteopenia : Well Female Maintenance (KF) Indication: Osteopenia Abnormal glucose tolerance test : Diet, Exercise, and Wt loss Indication: Abnormal glucose tolerance test Abnormal glucose tolerance test : *Diabetes Education Indication: Abnormal glucose tolerance test GERD (gastroesophageal reflux disease) : GERD Education Indication: GERD (gastroesophageal reflux disease) Hyperlipidemia : CHOLESTEROL MGMT. Indication: Hyperlipidemia Hyperlipidemia : Cholesterol - Nonprescription Treatment Indication: Hyperlipidemia Hyperlipidemia : Cholesterol - Medication Side Effects Indication: Hyperlipidemia Diverticulosis of colon : Diverticulosis Indication: Diverticulosis of colon Screening for malignant neoplasm of cervix : Self Breast Exam Education Indication: Screening for malignant neoplasm of cervix Screening for malignant neoplasm of cervix : Well Female Maintenance (KF) Indication: Screening for malignant neoplasm of cervix Abnormal glucose tolerance test : Diet, Exercise, and Wt loss Indication: Abnormal glucose tolerance test Abnormal glucose tolerance test : *Diabetes Education Indication: Abnormal glucose tolerance test Hyperlipidemia : CHOLESTEROL MGMT. Indication: Hyperlipidemia Hyperlipidemia : Cholesterol - Nonprescription Treatment Indication: Hyperlipidemia Hyperlipidemia : Cholesterol - Medication Side Effects Indication: Hyperlipidemia GERD (gastroesophageal reflux disease) : GERD Education Indication: GERD (gastroesophageal reflux disease) Hyperlipidemia : CHOLESTEROL MGMT. Indication: Hyperlipidemia Hyperlipidemia : Cholesterol - Medication Side Effects Indication: Hyperlipidemia Hyperlipidemia : Cholesterol - Nonprescription Treatment Indication: Hyperlipidemia Osteopenia : Well Female Maintenance (KF) Indication: Osteopenia Diverticulosis of colon : Diverticulosis Indication: Diverticulosis of colon Bronchitis : *Antibiotic Usage Education - Female Indication: Bronchitis Bronchitis : *URI Symptoms Indication: Bronchitis Bronchitis : *URI Treatment Indication: Bronchitis Paresthesia : Reviewed Lab Indication: Paresthesia GERD (gastroesophageal reflux disease) : GERD Education Indication: GERD (gastroesophageal reflux disease) SOB (shortness of breath) on exertion : FOLLOW UP IN 3 WEEKS Indication: SOB (shortness of breath) on exertion SOB (shortness of breath) on exertion : MDI Education Indication: SOB (shortness of breath) on exertion Hyperlipidemia : CHOLESTEROL MGMT. Indication: Hyperlipidemia Hyperlipidemia : Cholesterol - Nonprescription Treatment Indication: Hyperlipidemia Hyperlipidemia : Cholesterol - Medication Side Effects Indication: Hyperlipidemia SOB (shortness of breath) on exertion : Diet and Exercise Indication: SOB (shortness of breath) on exertion Hyperlipidemia : Cholesterol - Nonprescription Treatment Indication: Hyperlipidemia Hyperlipidemia : Cholesterol - Medication Side Effects Indication: Hyperlipidemia Osteopenia : Well Female Maintenance (KF) Indication: Osteopenia Well woman exam : Self Breast Exam Education Indication: Well woman exam Well woman exam : Well Female Maintenance (KF) Indication: Well woman exam Palpitations : *palpitation discusssion Indication: Palpitations GERD (gastroesophageal reflux disease) : GERD Education Indication: GERD (gastroesophageal reflux disease) Diverticulosis of colon : Diverticulosis Indication: Diverticulosis of colon Planned Observations CALCIFIDIOL ([id number]) VIT D 25Indication: Vitamin D deficiency, unspecified On: :41 Request TSH ([id number])Indication: Diabetes mellitus type II, controlled, with no complications On: :41 Request URINALYSIS, W/ MICRO ([id number])Indication: Diabetes mellitus type II, controlled, with no complications On: :41 Request MICROALBUMIN: CREATININE RATIO ([id number]) AND ([id number])Indication: Diabetes mellitus type II, controlled, with no complications On: :41 Request METABOLIC PANEL, COMPREHENSIVE ([id number])Indication: Diabetes mellitus type II, controlled, with no complications On: :41 Request LIPOPROTEIN, BLD, BY NMR ([id number])Indication: Mixed hyperlipidemia On: :41 Request CBC W/AUTO DIFF WBC ([id number])Indication: Diabetes mellitus type II, controlled, with no complications On: :41 Request HEPATIC FUNCTION PANEL ([id number])Indication: Elevated LFTs (Renamed from Elevated liver function tests) On: :42 Request HEPATITIS PANEL ([id number])Indication: Elevated LFTs (Renamed from Elevated liver function tests) On: :42 Request ANTIMITOCHONDRIAL ANTIBODY ([id number])Indication: Elevated LFTs (Renamed from Elevated liver function tests) On: :42 Request TRANSFERRIN ([id number])Indication: Elevated LFTs (Renamed from Elevated liver function tests) On: :42 Request GGT (GAMMA GLUTAMYLTRANSFERASE) ([id number])Indication: Elevated LFTs (Renamed from Elevated liver function tests) On: :42 Request FERRITIN ([id number])Indication: Elevated LFTs (Renamed from Elevated liver function tests) On: :42 Request CMV IGM ANTBDY ([id number])Indication: Elevated LFTs (Renamed from Elevated liver function tests) On: :42 Request CERULOPLASMIN ([id number])Indication: Elevated LFTs (Renamed from Elevated liver function tests) On: :42 Request ASM (ANTI SMOOTH MUSCLE ANTIBODY) ([id number])Indication: Elevated LFTs (Renamed from Elevated liver function tests) On: :42 Request ANTI-LIVER/KIDNEY MICROSOMAL ANTIBODY ([id number])Indication: Elevated LFTs (Renamed from Elevated liver function tests) On: :41 Request KRISTEL (ANTINUCLEAR ANTIBODY) ([id number])Indication: Elevated LFTs (Renamed from Elevated liver function tests) On: :41 Request METABOLIC PANEL, COMPREHENSIVE ([id number])Indication: SOB (shortness of breath) On: 06-Hyv-499086:59 Request FECAL OCCULT- Tubes sent home ([id number])Indication: Encounter for screening for malignant neoplasm of colon (Renamed from Special screening for malignant neoplasms, colon) On: 96-Qbz-118052:24 Request Urinalysis, Office ([id number])Indication: Hot flashes On: 8-Dtb-216080:24 Request CBC WITH MANUAL DIFF ([id number])Indication: Abnormal finding of blood chemistry, unspecified On: :08 Request Lipid Panel ([id number])Indication: Hyperlipidemia On: :04 Request HEPATIC FUNCTION PANEL ([id number])Indication: Hyperlipidemia On: 11-Rug-373757:04 Request FECAL OCCULT- Tubes sent home ([id number])Indication: Encounter for screening for malignant neoplasm of colon (Renamed from Special screening for malignant neoplasms, colon) On: 05 Request CALCIFIDIOL ([id number]) VIT D 25Indication: Vitamin D deficiency, unspecified On: Request LIPID PANEL ([id number])Indication: Mixed hyperlipidemia On: Request LIPID PANEL ([id number])Indication: Mixed hyperlipidemia On: Request [id number] ([id number])Indication: Fatty liver On: Request PT (Prothrobim Time) ([id number])Indication: Fatty liver On: Request TSH ([id number])Indication: Diabetes mellitus type II, controlled, with no complications On: Request URINALYSIS, W/ MICRO ([id number])Indication: Diabetes mellitus type II, controlled, with no complications On: Request MICROALBUMIN: CREATININE RATIO ([id number]) AND ([id number])Indication: Diabetes mellitus type II, controlled, with no complications On: Request METABOLIC PANEL, COMPREHENSIVE ([id number])Indication: Diabetes mellitus type II, controlled, with no complications On: Request CBC W/AUTO DIFF WBC ([id number])Indication: Diabetes mellitus type II, controlled, with no complications On: Request [id number] ([id number])Indication: Fatty liver On: Request PTT (Activated Partial Thromboplastin Time) ([id number])Indication: Fatty liver On: Request PT (Prothrobim Time) ([id number])Indication: Fatty liver On: Request CALCIFIDIOL ([id number]) VIT D 25Indication: Vitamin D deficiency, unspecified On: Request URINALYSIS, W/ MICRO ([id number])Indication: Diabetes mellitus type II, controlled, with no complications On: Request MICROALBUMIN: CREATININE RATIO ([id number]) AND ([id number])Indication: Diabetes mellitus type II, controlled, with no complications On: Request METABOLIC PANEL, COMPREHENSIVE ([id number])Indication: Diabetes mellitus type II, controlled, with no complications On: :29 Request LIPID PANEL ([id number])Indication: Hyperlipidemia On: :29 Request CBC with auto diff ([id number])Indication: Diabetes mellitus type II, controlled, with no complications On: :29 Request D-Dimer ([id number])Indication: SOB (shortness of breath) on exertion On: :55 Request REVERSE TRIDOTHYRONINE ([id number])Indication: Thyroid nodule On: :56 Request TSH ([id number])Indication: Thyroid nodule On: :55 Request TSH ([id number])Indication: FATIGUE On: :52 Request SED RATE ERYTHROCYTE ([id number])Indication: FATIGUE On: :52 Request RHEUMATOID FACTOR-QUANT ([id number])Indication: FATIGUE On: :52 Request C-REACTIVE PROTEIN ([id number])Indication: FATIGUE On: :52 Request KRISTEL (ANTINUCLEAR ANTIBODY) ([id number])Indication: FATIGUE On: :52 Request CCP ANTIBODY ([id number])Indication: Pain in unspecified joint On: 25-Lza-81385:51 Request D-Dimer ([id number])Indication: SOB (shortness of breath) on exertion On: 9-Wdy-949035:24 Request MONOSPOT TEST ([id number])Indication: Fever, unspecified On: 4-Diq-852618:23 Request URINALYSIS, W/ MICRO ([id number])Indication: Diabetes mellitus type 2, uncontrolled, without complications On: 64-Zxq-282355:10 Request MICROALBUMIN: CREATININE RATIO ([id number]) AND ([id number])Indication: Diabetes mellitus type 2, uncontrolled, without complications On: :10 Request METABOLIC PANEL, COMPREHENSIVE ([id number])Indication: Diabetes mellitus type 2, uncontrolled, without complications On: : Request CBC WITH MANUAL DIFF ([id number])Indication: Diabetes mellitus type 2, uncontrolled, without complications On: 99-Xap-230849:10 Request LIPID PANEL ([id number])Indication: Hyperlipidemia On: :10 Request URINE ENRIQUE CULTURE-EDITH COL COUNT ([id number])Indication: Urinary frequency On: 97-Ohs-811808:25 Request IRON ([id number])Indication: Hair abnormality On: 0-Glp-299887:42 Request CALCIUM SERUM ([id number])Indication: Osteopenia On: 9-Ttd-258223:30 Request HEPATIC FUNCTION PANEL ([id number])Indication: Hyperlipidemia On: 01-Xml-05625:34 Request LIPID PANEL ([id number])Indication: Hyperlipidemia On: 19-Lnx-25671:34 Request Comments: domin 3 months HEPATIC FUNCTION PANEL ([id number])Indication: Hyperlipidemia On: 94-Nsq-000248:48 Request LIPID PANEL ([id number])Indication: Hyperlipidemia On: 67-Mbp-560639:48 Request Glucose, PP/2 Hour (99760)Indication: Candidiasis, unspecified On: 73-Vwb-495876:46 Request INFLUENZA VIRUS ANTIBDY ([id number])Indication: Cough On: 03-Oct-20078:45 Request Rapid Flu (17845 x 2)Indication: Cough On: 03-Oct-20078:41 Request METABOLIC PANEL, COMPREHENSIVE ([id number])Indication: Paresthesia On: 47-Xel-307174:10 Request CBC & PLATELETS (AUTO) ([id number])Indication: Paresthesia On: 93-Ybl-051101:10 Request SED RATE ERYTHROCYTE ([id number])Indication: Paresthesia On: 31-Qna-447492:10 Request TSH (THYROID STIMULATING HORMONE) ([id number])Indication: Paresthesia On: 96-Cdt-069875:10 Request VITAMIN B-12 (CYANOCOBALAMIN) ([id number])Indication: Paresthesia On: 72-Wkx-365833:10 Request HEPATIC FUNCTION PANEL ([id number])Indication: Hyperlipidemia On: 66-Hqh-36695:01 Request LIPID PANEL ([id number])Indication: Hyperlipidemia On: 75-Fwx-10632:01 Request Comments: do in 3 months URINE ENRIQUE CULTURE (EDITH COL COUNT) ([id number])Indication: Dysuria On: 12-Xnj-721023:00 Request LIPID PANEL ([id number])Indication: Hyperlipidemia On: 55-Huh-649002:06 Request OCCULT BLOOD FECES SCREEN ([id number])Indication: Well woman exam On: 20-Rie-918553:22 Request LIPID PANEL ([id number])Indication: Palpitations On: 55-Rnb-148492:53 Request METABOLIC PANEL, COMPREHENSIVE ([id number])Indication: Palpitations On: 37-Ktf-258787:49 Request CBC WITH MANUAL DIFF ([id number])Indication: Palpitations On: 39-Btm-524285:49 Request TSH ([id number])Indication: Palpitations On: 29-Qsj-078189:49 Request Planned Encounters Medical; 3 Month FU - On: 02-Nov-2018 8:00 [facility] Lorena Arana DO, DO, Kathleen Planned Procedures CHEST XRAY, PA & LATERAL ([id number])By: On: 17-Aug-2018 Intent Iveth Delgado Aerosol Treatment ([id number])By: On: 17-Aug-2018 Intent Iveth Delgado Comments: Wheezing heard throughout after aerosol treatment. ELECTROCARDIOGRAM, COMPLETE (ECG) On: 27-Apr-2018 Intent ([id number])By: Lorena Arana DO Comments: nsr no acute chg Lorena Arana DO US DOPPLER CAROTID BILATERAL On: 03-Mar-2018 Intent ([id number])By: Lorena Arana DO, DO, Kathleen Ultrasound - LiverBy: Yasmeen MOREAU, On: 16-Feb-2018 Intent Lorena Earl DO Aerosol Treatment ([id number])By: On: 14-Jul-2017 Intent Iveth Delgado Comments: inspiratory and expiratory wheeze after aerosol treatment COMPUTED TOMOGRAPHY ANGIOGRAPHY OF On: 14-Jul-2017 Intent CHEST FOR PULMONARY EMBOLISM Comments: STAT STAT R/O PE ([id number])By: Iveth Delgado Solu -Medrol Injection, 125 mg On: 14-Jul-2017 Intent ([id number])By: Iveth Delgado Comments: [id number], 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 US DOPPLER CAROTID BILATERAL On: 31-May-2017 Intent ([id number])By: Lorena Arana DO, DO, Kathleen MAMMOGRAM BREAST BILATERAL On: 31-May-2017 Intent SCREENING DIGITAL ([id number])By: Lorena Arana DO, DO, Kathleen Bone Density StudyBy: Yasmeen MOREAU, On: 31-May-2017 Intent Lorena Earl DO Solu- Medrol Injection, 125mg On: 17-Jan-2017 Intent ([id number])By: Lorena Arana DO Comments: lot: [id number]: 06/19site/route: LGM/IMamt: 2mLVIS signed when applicableChelsyolanda, Lorena Knott DO CT SCAN OF ABDOMEN AND PELVIS WITH On: 17-Jan-2017 Intent CONTRAST ([id number])By: Lorena Arana DO, DO, Kathleen BONE SCAN; WHOLE BODY ([id number])By: On: 12-Jan-2017 Intent Lorena Arana DO, DO, Kathleen ULTRASOUND OF PELVIC REGION On: 12-Jan-2017 Intent ([id number])By: Lorena Arana DO, DO, Kathleen PNEUM VAC ADLT/IMUMNOSPR, SBC/INTRM On: 27-May-2016 Intent (22212)By: Lorena Arana DO Comments: Lot:[id number]:08/22/17Dose:125mgRoute:imSite:l hipGiven By:RACHEL signed Lorena Arana DO DEXA SCAN AXIAL SKELETON ([id number])By: On: 27-May-2016 Intent Lorena Arana DO, DO, Kathleen MAMMOGRAM, SCREENING, BOTH BREAST On: 29-Apr-2016 Intent ([id number])By: Lorena Arana DO, DO, Kathleen ELECTROCARDIOGRAM, COMPLETE (ECG) On: 08-Apr-2016 Intent ([id number])By: Lorena Arana DO Comments: nsr no acute chg Lorena Arana DO PFT - CompleteBy: Mirian Hartley CNP On: 16-Mar-2016 Intent Holter Moniter ([id number])By: Lis On: 05-Mar-2016 Intent Mirian COOPER Solu -Medrol Injection, 125 mg On: 05-Mar-2016 Intent ([id number])By: Mirian Hartley CNP PFT - CompleteBy: Mirian Hartley CNP On: 05-Mar-2016 Intent Solu -Medrol Injection, 125 mg On: 27-Jan-2016 Intent ([id number])By: Mirian Hartley CNP Comments: Lot:[id number]/2018Dose:125mgRoute:imSite:r hipGiven By:RACHEL signed Radiology - ChestBy: Lis COOPER, On: 27-Jan-2016 Intent Mirian Becker Aerosol Treatment ([id number])By: Lis On: 27-Jan-2016 Intent Mirian COOPER X-RAY OF LUMBAR SPINE AND On: 25-Sep-2015 Intent SACROILIAC JOINTS ([id number])By: Lorena Arana DO, DO, Kathleen X-RAY OF WRIST, FOUR VIEWS On: 25-Sep-2015 Intent ([id number])By: Lorena Arana DO, DO, Kathleen EMGBy: Lorena Arana DO On: 25-Sep-2015 Lorena Meyer DO Comments: upper extremities Nerve ConductionBy: Yasmeen MOREAU, On: 25-Sep-2015 Intent Lorena Earl DO Comments: upper extremities Radiology - Hand - RightBy: Yasmeen On: 25-Sep-2015 Intent Lorena MOREAU DO, Kathleen Echo CompleteBy: Yasmeen MOREAU, On: 12-May-2015 Intent Lorena Earl DO Nuclear Stress Test/Stress On: 12-May-2015 Intent SPECT/AdenosineBy: Lorena Araan DO, DO, Kathleen DEXA SCAN AXIAL SKELETON ([id number])By: On: 12-May-2015 Intent Lorena Arana DO, DO, Kathleen BILATERAL MAMMOGRAMS ([id number])By: On: 10-Mar-2015 Intent Lorena Arana DO, DO, Kathleen EKG ([id number])By: Lorena Arana DO On: 05-Dec-2014 Intent Lorena Arana DO Comments: nsr - wierd R wave progression but not chg CT - Sinuses Complete (IV Contrast On: 05-Sep-2014 Intent Needed)By: Lorena Arana DO, DO, Kathleen SPECIMEN HANDLING/TRANSPORT On: 17-Jun-2014 Intent ([id number])By: Mirian Hartley CNP Prevnar 13 ([id number])By: Rico MENDEZ, On: 22-May-2014 Intent Zo Prevnar 13 ([id number])By: Yasmeen DO, On: 22-May-2014 Intent Lorena Yasmeen DO, Lorena Comments: [id number] arm, IMAS Ultrasound - LiverBy: Yasmeen DO, On: 22-May-2014 Intent Lorena Yasmeen DO, Lorena Ultrasound - PelvisBy: Yasmeen DO, On: 01-Mar-2014 Intent Lorena Yasmeen DO, Lorena MAMMOGRAM, SCREENING, BOTH BREAST On: 20-Feb-2014 Intent ([id number])By: Yasmeen DO, Lorena Yasmeen DO, Lorena Radiology - PelvisBy: Yasmeen DO, On: 12-Dec-2013 Intent Lorena Yasmeen DO, Lorena Comments: attention: SI jt on left side Radiology - Foot - LeftBy: Yasmeen On: 12-Dec-2013 Intent DO, Lorena Yasmeen DO, Lorena Radiology - Knee - RightBy: Yasmeen On: 12-Dec-2013 Intent DO, Lorena Yasmeen DO, Lorena Radiology - Knee - LeftBy: Yasmeen On: 12-Dec-2013 Intent DO, Lorena Yasmeen DO, Lorena Radiology - Hip - BilateralBy: On: 12-Dec-2013 Intent Yasmeen DO, Lorena Yasmeen DO, Lorena Eprescribed prescriptions On: 21-Nov-2013 Intent (G8553)By: Yasmeen DO, Lorena Yasmeen DO, Lorena Eprescribed prescriptions On: 22-Aug-2013 Intent (G8553)By: Yasmeen DO, Lorena Yasmeen DO, Lorena Toradol Injection, 30 mg On: 13-Jul-2013 Intent ([id number])By: Mirian Hartley CNP Comments: Lot:[id number]/29/2014Dose:30mgRoute:imSite:r hipGiven By:RACHEL signed Radiology - Foot - RightBy: Lis On: 13-Jul-2013 Intent Mirian COOPER Comments: call wet read to Adele hartley at [facility] today, ok to tell pt Eprescribed prescriptions On: 22-May-2013 Intent (G8553)By: Terri Hernandez EKG ([id number])By: Lorena Arana DO On: 14-May-2013 Intent Lorena Arana DO Comments: nsr no acute chg LVH same - Pulse Oximetry (00735)By: Yasmeen On: 12-Feb-2013 Intent Lorena MOREAU DO, Kathleen Comments: 97% Spirometry ([id number])By: Yasmeen MOREAU, On: 12-Feb-2013 Intent Lorena Earl DO Comments: good - wnl CT - Brain CTABy: Yasmeen MOREAU, On: 12-Feb-2013 Intent Lorena Earl DO MAMMOGRAM, SCREENING, BOTH BREASTS On: 12-Feb-2013 Intent ([id number])By: Lorena Arana DO, DO, Kathleen Eprescribed prescriptions On: 12-Feb-2013 Intent (G8553)By: Iveth Manzano LPN Eprescribed prescriptions On: 20-Nov-2012 Intent (G8553)By: Lorena Arana DO, DO, Kathleen Ultrasound - ThyroidBy: Yasmeen MOREAU, On: 13-Nov-2012 Intent Lorena Earl DO Eprescribed prescriptions On: 13-Nov-2012 Intent (G8553)By: Iveth Manzano LPN Overnight Pulse OX ([id number])By: On: 17-May-2012 Intent Lorena Arana DO, DO, Comments: NEED TO SEND RESULTS TO DR CURRIE WHEN DONE Lorena Kenalog Injection, 40 mgm On: 13-Apr-2012 Intent (J3301)By: Lorena Arana DO Comments: lot # [id number]- [id number]- 1mlCHendersLorena Ochoa LPN, DO Eprescribed prescriptions On: 13-Apr-2012 Intent (G8553)By: Lorena Arana DO, DO, Kathleen Nuclear Stress Test/Stress On: 07-Apr-2012 Intent SPECT/AdenosineBy: Lorena Arana DO, DO, Kathleen CT - Chest (IV Contrast Needed)By: On: 06-Apr-2012 Intent Lorena Arana DO, DO, Comments: include few slices to include looking at thyriod--pt has thyromegaly and strong family h/o goiters growing internally. pt spirometry has findings consistent with extrrathorac compression Lorena EKG (10717)By: Lorena Arana DO On: 06-Apr-2012 Intent Lorena Arana DO Comments: nsr no acute chg and no t wave inversions/pos LVH Bio Z (01824)By: Yasmeen MOREAU, On: 06-Apr-2012 Intent Lorena Earl DO Comments: good stable parameter Spirometry (85504)By: Yasmeen MOREAU, On: 06-Apr-2012 Intent Lorena Earl DO Comments: decent effort but very flat with inspir-- consistnet with extrathoracic compression -- and clinically describes that feeling that somehnting is in neck adn cant breathe Nuclear Stress Test/Stress On: 06-Apr-2012 Intent SPECT/TreadmillBy: Lorena Arana DO, DO, Kathleen Echo CompleteBy: Yasmeen MOREAU, On: 06-Apr-2012 Intent Lorena Earl DO Pulse Oximetry ([id number])By: Yasmeen On: 06-Apr-2012 Lorena Meyer DO, DO, Kathleen SPECIMEN HNDLNG/TRNSPRT, OFFC > LAB On: 06-Apr-2012 Intent ([id number])By: Lorena Arana DO, DO, Kathleen Eprescribed prescriptions On: 06-Apr-2012 Intent (G8553)By: Iveth Manzano LPN SPECIMEN HANDLING/TRANSPORT On: 13-Mar-2012 Intent ([id number])By: Julieta Vance LPN MRI - Lumbar SpineBy: Yasmeen MOREAU, On: 18-Nov-2011 Intent Lorena Earl DO MAMMOGRAM, SCREENING, BOTH BREASTS On: 06-Oct-2011 Intent ([id number])By: Lorena Arana DO, DO, Kathleen EKG ([id number])By: Lorena Arana DO On: 28-Apr-2011 Intent Lorena Arana DO Comments: nsr no acute chg FLU VAC, SPLIT, >3 YEARS, INTRAMUSC On: 28-Apr-2011 Intent ([id number])By: Lorena Arana DO Comments: pt refused Lorena Arana DO MRI - Knee(s) - LeftBy: Yasmeen MOREAU, On: 07-Jan-2011 Intent Lorena Earl DO Radiology - Knee - LeftBy: Yasmeen On: 04-Jan-2011 Intent Lorena MOREAU DO, Kathleen DRAIN/INJECT MAJOR JOINT OR BURSA On: 12-Oct-2010 Intent ([id number])By: Lorena Arana DO Comments: 2cc marcaine and 1 cc kenolog Lorena Arana DO TDAP VACCINE >7 IM ([id number])By: On: 07-Oct-2010 Intent Lorena Arana DO, DO, Comments: Lot #[id number]/24/13Site-left deltoidgiven by:BD/CDH Lorena Eprescribed prescriptions On: 07-Oct-2010 Intent (G8553)By: Lorena Arana DO, DO, Kathleen DXA, BONE DENSITY, AXIAL SKELETON On: 13-Jul-2010 Intent ([id number])By: Lorena Arana DO, DO, Kathleen Pelvic and Breast, Medicare On: 13-Jul-2010 Intent (G0101)By: Iveth Manzano LPN MAMMOGRAM, SCREENING, BOTH BREASTS On: 18-Jun-2010 Intent ([id number])By: Lorena Arana DO, DO, Kathleen EKG (25165)By: Lorena Arana DO On: 10-Jun-2010 Intent Lorena Arana DO Comments: nsr but tall R wave in V2 -- repeated ekg and persisnt-- will ck echo to eval for RVH PNEUM VAC ADLT/IMUMNOSPR, SBC/INTRM On: 10-Jun-2010 Intent ([id number])By: Lorena Arana DO Comments: Lot #[id number] Dltd/IMDose 0.5mlgiven by:ANDREA JUÁREZ DO, Kathleen Echo CompleteBy: Yasmeen MOREAU, On: 10-Jun-2010 Intent Lorena Earl DO Comments: [facility] to read ADMINISTRATION OF PNEUMOCOCCAL On: 10-Jun-2010 Intent VACCINE (G0009)By: Lorena Arana DO, DO, Kathleen Bio Z ([id number])By: Yasmeen MOREAU, On: 19-Jun-2008 Intent Lorena Earl DO Comments: normal svr and co EKG ([id number])By: Lorena Arana DO On: 19-Jun-2008 Intent Lorena Arana DO Comments: nsr no acute changes DXA, BONE DENSITY, AXIAL SKELETON On: 08-Feb-2008 Intent ([id number])By: Lorena Arana DO, DO, Kathleen Pelvic and Breast, Medicare On: 08-Feb-2008 Intent (G0101)By: Iveth Manzano LPN MAMMOGRAM, SCREENING, BOTH BREASTS On: 08-Feb-2008 Intent ([id number])By: Iveth Manzano LPN Pulse Oximetry ([id number])By: Saturnino, On: 03-Oct-2007 Intent Kalyn Comments: 94% Inhaler Demo ([id number])By: Yasmeen MOREAU, On: 20-Jun-2007 Intent Lorena Earl DO Doppler Ultrasound OtherBy: ALVINA On: 06-Mar-2007 Intent KULDIP COOPER Moniter ([id number])By: On: 25-Jan-2007 Intent Iveth Manzano Comments: done, pt o return at 1:30 pm thur Clinical Breast Examination On: 19-Jan-2007 Intent (G0101)By: Lorena Arana DO Comments: AND PELVIC EXAM Lorena Arana DO DXA, BONE DENSITY, AXIAL SKELETON On: 19-Jan-2007 Intent ([id number])By: Lorena Arana DO, DO, Kathleen MAMMOGRAM, SCREENING, BOTH BREASTS On: 19-Jan-2007 Intent ([id number])By: Lorena Arana DO, DO, Kathleen Bio Z ([id number])By: Yasmeen MOREAU, On: 09-Jan-2007 Intent Lorena Earl DO Comments: normal svr and co Spirometry (31597)By: Yasmeen MOREAU, On: 09-Jan-2007 Intent Lorena Earl DO Comments: normal spir Pulse Oximetry ([id number])By: Yasmeen On: 09-Jan-2007 Lorena Meyer DO, DO, Kathleen Echo CompleteBy: Yasmeen MOREAU, On: 09-Jan-2007 Intent Lorena Earl DO Comments: here at [facility] Holter Moniter (38850)By: Yasmeen On: 09-Jan-2007 Lorena Meyer DO, DO, Kathleen Comments: at [facility] EKG ([id number])By: Lorena Arana DO On: 09-Jan-2007 Lorena Rea DO Comments: nsr no acute ishemic changes Planned Medications INJECTION, KETOROLAC TROMETHAMINE, PER 15 MG Ordered: 13-Jul-2013 Pending Ciesa [employer]ARDING UTILITY TENDER, Domenica INJECTION, METHYLPREDNISOLONE SODIUM SUCCINATE, UP TO 125 MG Ordered: 27-Jan-2016 Pending Ciesa CARDING UTILITY TENDER, Domenica INJECTION, METHYLPREDNISOLONE SODIUM SUCCINATE, UP TO 125 MG Ordered: 05-Mar-2016 Pending Ciesa CARDING UTILITY TENDER, Domenica INJECTION, METHYLPREDNISOLONE SODIUM SUCCINATE, UP TO 125 MG Ordered: 17-Jan-2017 Pending Lorena Arana DO, DO, Kathleen INJECTION, METHYLPREDNISOLONE SODIUM SUCCINATE, UP TO 125 MG Ordered: 14-Jul-2017 Pending Iveth Delgado INJECTION, TRIAMCINOLONE ACETONIDE, NOT OTHERWISE SPECIFIED, 10 MG Ordered: 13-Apr-2012 Pending Lorena Arana DO, DO, Kathleen Instructions Name Dates Details Nonsmoker : How to access health information online Indication: Nonsmoker Nonsmoker : How to access health information online - Detail Indication: Nonsmoker Bronchitis : Patient Instructions Indication: Bronchitis Diabetes mellitus type II, controlled, with no complications : How to access health information online Indication: Diabetes mellitus type II, controlled, with no complications Diabetes mellitus type II, controlled, with no complications : How to access health information online - Detail Indication: Diabetes mellitus type II, controlled, with no complications Diabetes mellitus type II, controlled, with no complications : Patient Instructions Indication: Diabetes mellitus type II, controlled, with no complications Nonsmoker : How to access health information online - Detail Indication: Nonsmoker Nonsmoker : How to access health information online Indication: Nonsmoker Nonsmoker : Patient Instructions Indication: Nonsmoker Nonsmoker : How to access health information online Indication: Nonsmoker Nonsmoker : How to access health information online - Detail Indication: Nonsmoker Nonsmoker : Patient Instructions Indication: Nonsmoker Nonsmoker : How to access health information online Indication: Nonsmoker Nonsmoker : How to access health information online - Detail Indication: Nonsmoker Nonsmoker : Patient Instructions Indication: Nonsmoker Nonsmoker : How to access health information online - Detail Indication: Nonsmoker Nonsmoker : How to access health information online Indication: Nonsmoker Nonsmoker : Patient Instructions Indication: Nonsmoker Diabetes mellitus type II, controlled, with no complications : How to access health information online Indication: Diabetes mellitus type II, controlled, with no complications Diabetes mellitus type II, controlled, with no complications : How to access health information online - Detail Indication: Diabetes mellitus type II, controlled, with no complications Diabetes mellitus type II, controlled, with no complications : Patient Instructions Indication: Diabetes mellitus type II, controlled, with no complications Nonsmoker : How to access health information online Indication: Nonsmoker Nonsmoker : How to access health information online - Detail Indication: Nonsmoker Nonsmoker : Patient Instructions Indication: Nonsmoker Nonsmoker : How to access health information online Indication: Nonsmoker Nonsmoker : How to access health information online - Detail Indication: Nonsmoker Bladder prolapse, female, acquired : Patient Instructions Indication: Bladder prolapse, female, acquired Diabetes mellitus type II, controlled, with no complications : How to access health information online Indication: Diabetes mellitus type II, controlled, with no complications Diabetes mellitus type II, controlled, with no complications : How to access health information online - Detail Indication: Diabetes mellitus type II, controlled, with no complications Diabetes mellitus type II, controlled, with no complications : Patient Instructions Indication: Diabetes mellitus type II, controlled, with no complications Diabetes mellitus type II, controlled, with no complications : How to access health information online Indication: Diabetes mellitus type II, controlled, with no complications Diabetes mellitus type II, controlled, with no complications : How to access health information online - Detail Indication: Diabetes mellitus type II, controlled, with no complications Diabetes mellitus type II, controlled, with no complications : Patient Instructions Indication: Diabetes mellitus type II, controlled, with no complications BMI 26.0-26.9,adult : How to access health information online Indication: BMI 26.0-26.9,adult BMI 26.0-26.9,adult : How to access health information online - Detail Indication: BMI 26.0-26.9,adult SOB (shortness of breath) : Patient Instructions Indication: SOB (shortness of breath) BMI 27.0-27.9,adult : How to access health information online Indication: BMI 27.0-27.9,adult BMI 27.0-27.9,adult : How to access health information online - Detail Indication: BMI 27.0-27.9,adult SOB (shortness of breath) : Patient Instructions Indication: SOB (shortness of breath) Post-menopausal : How to access health information online Indication: Post-menopausal Post-menopausal : How to access health information online - Detail Indication: Post-menopausal Post-menopausal : Patient Instructions Indication: Post-menopausal BMI 27.0-27.9,adult : How to access health information online Indication: BMI 27.0-27.9,adult BMI 27.0-27.9,adult : How to access health information online - Detail Indication: BMI 27.0-27.9,adult Hematuria : Patient Instructions Indication: Hematuria BMI 27.0-27.9,adult : How to access health information online Indication: BMI 27.0-27.9,adult BMI 27.0-27.9,adult : How to access health information online - Detail Indication: BMI 27.0-27.9,adult BMI 27.0-27.9,adult : Patient Instructions Indication: BMI 27.0-27.9,adult Nonsmoker : How to access health information online Indication: Nonsmoker Nonsmoker : How to access health information online - Detail Indication: Nonsmoker Nonsmoker : Patient Instructions Indication: Nonsmoker Abdominal pain, acute, right lower quadrant : How to access health information online Indication: Abdominal pain, acute, right lower quadrant Abdominal pain, acute, right lower quadrant : How to access health information online - Detail Indication: Abdominal pain, acute, right lower quadrant Abdominal pain, acute, right lower quadrant : Patient Instructions Indication: Abdominal pain, acute, right lower quadrant Mixed hyperlipidemia : How to access health information online Indication: Mixed hyperlipidemia Mixed hyperlipidemia : How to access health information online - Detail Indication: Mixed hyperlipidemia Mixed hyperlipidemia : Patient Instructions Indication: Mixed hyperlipidemia Nonsmoker : How to access health information online Indication: Nonsmoker Nonsmoker : How to access health information online - Detail Indication: Nonsmoker Nonsmoker : Patient Instructions Indication: Nonsmoker Diabetes mellitus type II, controlled, with no complications : How to access health information online Indication: Diabetes mellitus type II, controlled, with no complications Diabetes mellitus type II, controlled, with no complications : How to access health information online - Detail Indication: Diabetes mellitus type II, controlled, with no complications Diabetes mellitus type II, controlled, with no complications : Patient Instructions Indication: Diabetes mellitus type II, controlled, with no complications Allergic rhinitis : Patient Instructions Indication: Allergic rhinitis Diabetes mellitus type 2, uncontrolled, without complications : How to access health information online Indication: Diabetes mellitus type 2, uncontrolled, without complications Diabetes mellitus type 2, uncontrolled, without complications : How to access health information online - Detail Indication: Diabetes mellitus type 2, uncontrolled, without complications Diabetes mellitus type 2, uncontrolled, without complications : Patient Instructions Indication: Diabetes mellitus type 2, uncontrolled, without complications Urinary frequency : How to access health information online Indication: Urinary frequency Urinary frequency : How to access health information online - Detail Indication: Urinary frequency Urinary frequency : Patient Instructions Indication: Urinary frequency Wound discharge : How to access health information online Indication: Wound discharge Wound discharge : How to access health information online - Detail Indication: Wound discharge Wound discharge : Patient Instructions Indication: Wound discharge Wound discharge : How to access health information online Indication: Wound discharge Wound discharge : How to access health information online - Detail Indication: Wound discharge Wound discharge : Patient Instructions Indication: Wound discharge Aspiration pneumonia : How to access health information online Indication: Aspiration pneumonia Aspiration pneumonia : How to access health information online - Detail Indication: Aspiration pneumonia Aspiration pneumonia : Patient Instructions Indication: Aspiration pneumonia SOB (shortness of breath) on exertion : How to access health information online Indication: SOB (shortness of breath) on exertion SOB (shortness of breath) on exertion : How to access health information online - Detail Indication: SOB (shortness of breath) on exertion SOB (shortness of breath) on exertion : Patient Instructions Indication: SOB (shortness of breath) on exertion Colicky RUQ abdominal pain : How to access health information online Indication: Colicky RUQ abdominal pain Colicky RUQ abdominal pain : How to access health information online - Detail Indication: Colicky RUQ abdominal pain Colicky RUQ abdominal pain : Patient Instructions Indication: Colicky RUQ abdominal pain Hyperlipidemia : How to access health information online Indication: Hyperlipidemia Hyperlipidemia : How to access health information online - Detail Indication: Hyperlipidemia Hyperlipidemia : Patient Instructions Indication: Hyperlipidemia Diabetes mellitus type II, controlled, with no complications : How to access health information online Indication: Diabetes mellitus type II, controlled, with no complications Diabetes mellitus type II, controlled, with no complications : How to access health information online - Detail Indication: Diabetes mellitus type II, controlled, with no complications Diabetes mellitus type II, controlled, with no complications : Patient Instructions Indication: Diabetes mellitus type II, controlled, with no complications Diabetes mellitus type 2, uncontrolled, without complications : How to access health information online Indication: Diabetes mellitus type 2, uncontrolled, without complications Diabetes mellitus type 2, uncontrolled, without complications : How to access health information online - Detail Indication: Diabetes mellitus type 2, uncontrolled, without complications Diabetes mellitus type 2, uncontrolled, without complications : Patient Instructions Indication: Diabetes mellitus type 2, uncontrolled, without complications Annual Medicare Phyiscal WITHOUT abnormal findings (Renamed from Encounter for general adult medical examination without abnormal findings) : How to access health information online Indication: Annual Medicare Phyiscal WITHOUT abnormal findings (Renamed from Encounter for general adult medical examination without abnormal findings) Annual Medicare Phyiscal WITHOUT abnormal findings (Renamed from Encounter for general adult medical examination without abnormal findings) : How to access health information online - Detail Indication: Annual Medicare Phyiscal WITHOUT abnormal findings (Renamed from Encounter for general adult medical examination without abnormal findings) Annual Medicare Phyiscal WITHOUT abnormal findings (Renamed from Encounter for general adult medical examination without abnormal findings) : Patient Instructions Indication: Annual Medicare Phyiscal WITHOUT abnormal findings (Renamed from Encounter for general adult medical examination without abnormal findings) Fatty liver : How to access health information online Indication: Fatty liver Fatty liver : How to access health information online - Detail Indication: Fatty liver Sinusitis, acute : Patient Instructions Indication: Sinusitis, acute Diabetes mellitus type II, controlled, with no complications : Patient Instructions Indication: Diabetes mellitus type II, controlled, with no complications Abnormal finding of blood chemistry, unspecified : How to access health information online Indication: Abnormal finding of blood chemistry, unspecified Abnormal finding of blood chemistry, unspecified : How to access health information online - Detail Indication: Abnormal finding of blood chemistry, unspecified Abnormal finding of blood chemistry, unspecified : Patient Instructions Indication: Abnormal finding of blood chemistry, unspecified Ultrasound scan abnormal : How to access health information online Indication: Ultrasound scan abnormal Ultrasound scan abnormal : How to access health information online - Detail Indication: Ultrasound scan abnormal Ultrasound scan abnormal : Patient Instructions Indication: Ultrasound scan abnormal Ultrasound scan abnormal : How to access health information online Indication: Ultrasound scan abnormal Ultrasound scan abnormal : How to access health information online - Detail Indication: Ultrasound scan abnormal Ultrasound scan abnormal : Patient Instructions Indication: Ultrasound scan abnormal Diabetes mellitus type II, controlled, with no complications : How to access health information online Indication: Diabetes mellitus type II, controlled, with no complications Diabetes mellitus type II, controlled, with no complications : How to access health information online - Detail Indication: Diabetes mellitus type II, controlled, with no complications Diabetes mellitus type II, controlled, with no complications : Patient Instructions Indication: Diabetes mellitus type II, controlled, with no complications Localized, primary osteoarthritis of lower leg : Patient Instructions Indication: Localized, primary osteoarthritis of lower leg Localized, primary osteoarthritis of lower leg : Patient Instructions Indication: Localized, primary osteoarthritis of lower leg SOB (shortness of breath) on exertion : Patient Instructions Indication: SOB (shortness of breath) on exertion Thyroid nodule : Patient Instructions Indication: Thyroid nodule Headache : Patient Instructions Indication: Headache Diabetes mellitus type II, controlled, with no complications : Patient Instructions Indication: Diabetes mellitus type II, controlled, with no complications Diabetes mellitus type II, controlled, with no complications : Patient Instructions Indication: Diabetes mellitus type II, controlled, with no complications SOB (shortness of breath) on exertion : Patient Instructions Indication: SOB (shortness of breath) on exertion Vitamin D deficiency, unspecified : Patient Instructions Indication: Vitamin D deficiency, unspecified Diabetes mellitus type II, controlled, with no complications : Patient Instructions Indication: Diabetes mellitus type II, controlled, with no complications Hyperlipidemia : Patient Instructions Indication: Hyperlipidemia Diabetes mellitus type II, controlled, with no complications : Patient Instructions Indication: Diabetes mellitus type II, controlled, with no complications SOB (shortness of breath) on exertion : Patient Instructions Indication: SOB (shortness of breath) on exertion SOB (shortness of breath) on exertion : Patient Instructions Indication: SOB (shortness of breath) on exertion SOB (shortness of breath) on exertion : Patient Instructions: if breathing / chest tightness gets worse go to ER Indication: SOB (shortness of breath) on exertion Encounters Office Visit On: 17-Aug-2018 13:23 Encounter Reason: Sinusitis - Symptoms include nasal congestion, clear rhinorrhea, cheek pressure, forehead pressure and cough. Onset was 4 week(s) ago. Note for Sinusitis: Symptoms started about 1 week ago with chest End: 17-Aug-2018 14:36 congestion-coughing up yellow, SOB, nasal drainage and congestion, sinus pressure, sweats x 2 times. ??No wheezing, headaches, CP, fever, chills. Has history of sinus issues. Has tried mucinex and cough syrup OTC.Encounter Diagnosis: Nonsmoker, BMI 26.0-26.9,adult, Bronchitis, Abnormal lung sounds, Cough [facility] Office Visit On: 03-Aug-2018 8:55 Encounter Reason: Follow up for chronic medical issues - The patient feels well with minor complaints, has decreased energy level and is sleeping poorly. Patient has been compliant with instructions. Current medication u End: 03-Aug-2018 9:59 se: no side effects and compliant with dosing regimen. Patient sleeps 4 hours per night. Nutrition: balanced diet and no supplemental vitamins & iron. The medical issues the patient is following up for include All identified problems below, blood sugar issues, high blood pressure and high cholesterol. blood pressure range : and weight :. Note for Follow up for chronic medical issues: had b/l TKR in may 2018 -- doing well overall-- Dr Powell at [facility] did [facility] Diagnosis: BMI 26.0-26.9,adult, Nonsmoker, Osteoarthritis, generalized, Nutritional counseling, Vitamin D deficiency, unspecified, Mixed hyperlipidemia (272.2), Chronic GERD, Fatty liver, Elevated blood-pressure reading without diagnosis of hypertension, Carotid stenosis, bilateral, Thyroid nodule (241.0), Diabetes mellitus type II, controlled, with no complications [facility] Office Visit On: 28-Apr-2018 14:04 Encounter Reason: Abdominal pain - The onset of the pain has been gradual and has been occurring in an intermittent pattern for 6 weeks. The course has been recurrent. The pain is described as a moderate sharp pain, stab End: 28-Apr-2018 15:05 johnson and pressure sensation. The pain is described as being located in the entire abdomen. The pain does not radiate. The symptoms have no aggravating factors. Note for Pain: started after she ate at the [facility] Diagnosis: BMI 27.0-27.9,adult, Nonsmoker, Diarrhea, unspecified type, Irritable bowel syndrome with diarrhea [facility] Office Visit On: 27-Apr-2018 7:28 Encounter Reason: Follow up for chronic medical issues - The patient feels well with minor complaints, has decreased energy level and is sleeping poorly. Patient has been compliant with instructions. Current medication u End: 27-Apr-2018 14:39 se: no side effects and compliant with dosing regimen. Patient sleeps 4 hours per night. Nutrition: balanced diet and supplemental vitamins. The medical issues the patient is following up for include Al l identified problems below, blood sugar issues, high blood pressure and high cholesterol. weight :., [ADDITIONAL REASON] Pre-Op Visit - The procedure scheduled is on may 09. The surgeon for the proced ure will be dr powell . The chief complaint is total knee replacement b/l. Recent symptoms do not include fever, chills, chest pain or cough. Encounter Diagnosis: BMI 27.0-27.9,adult, Nonsmoker, Influenza vaccination declined (Renamed from Refused influenza vaccine), Pre-operative general physical examination, Diabetes mellitus type II, controlled, with no complications, Thyroid nodule (241.0), Mixed hyperlipidemia (272.2), Vitamin D deficiency, unspecified, Chronic GERD, Fatty liver, Elevated LFTs (Renamed from Elevated liver function tests), Carotid stenosis, bilateral, Retinal hemorrhage, bilateral [facility] Office Visit On: 03-Mar-2018 10:51 Encounter Reason: Knee Pain - This condition occurred without any known injury. This occurred 3 day(s) ago. Symptoms include knee pain, swelling, decreased range of motion, instability and difficulty bearing weight, whil End: 03-Mar-2018 11:50 e symptoms do not include warmth, redness or ecchymosis. Symptoms are located in the right knee.Encounter Diagnosis: BMI 27.0-27.9,adult, Nonsmoker, Acute pain of right knee, Bilateral carotid bruits [facility] Office Visit On: 16-Feb-2018 8:52 Encounter Reason: Follow up tests - Date: (02/09/18).Encounter Diagnosis: BMI 27.0- 27.9,adult, Nonsmoker, Insulin resistance, Fatty liver, Elevated LFTs (Renamed from Elevated liver function tests), Vitamin D deficiency, unspecified, End: 17-Feb-2018 15:34 Nutritional counseling, Mixed hyperlipidemia (272.2) [facility] Office Visit On: 09-Feb-2018 6:58 Encounter Reason: Follow up for chronic medical issues - The patient feels well with minor complaints, has decreased energy level and is sleeping poorly. Patient has been compliant with instructions. Current medication u End: 09-Feb-2018 11:07 se: no side effects and compliant with dosing regimen. Patient sleeps 4 hours per night. Nutrition: balanced diet and supplemental vitamins. The medical issues the patient is following up for include Al l identified problems below, blood sugar issues, high blood pressure and high cholesterol.Encounter Diagnosis: BMI 27.0-27.9,adult, Bladder prolapse, female, acquired, Irritable bowel syndrome (564.1), Diabetes mellitus type II, controlled, with no complications, Osteoarthritis, generalized, Reflux gastritis, Thyroid nodule (241.0), Vitamin D deficiency, unspecified, Fatty liver, Mixed hyperlipidemia (272.2) [facility] Office Visit On: 21-Dec-2017 15:14 Encounter Reason: Follow up acute care visit - The patient improving.Encounter Diagnosis: BMI 28.0-28.9,adult, Nonsmoker, Bladder prolapse, female, acquired, Vaginal irritation End: 21-Dec-2017 15:41 [facility] Annotation/Addendum On: 16-Dec-2017 15:05 Encounter Diagnosis: Vaginal itching End: 16-Dec-2017 15:06 [facility] Annotation/Addendum On: 13-Dec-2017 12:48 Encounter Diagnosis: UTI (urinary tract infection) End: 13-Dec-2017 12:56 [facility] Office Visit On: 07-Dec-2017 13:24 Encounter Reason: Urinary problems - The onset of the urinary problems has been acute and they have been occurring for 2 weeks. The urinary problem is characterized as frequency and painful urination (itching and burning End: 07-Dec-2017 16:24 inside). Past medical history : urinary bladder dysfunction. Note for Urinary problems: Symptoms started about 2 weeks ago with Abd pressure and pain, tender and itching. Everything is tender and irr itated. Even my underwear irritates it. No fever, chills, no blood in urine, some urgency but can't go at times, and sometimes go a lot. They checked my bladder to see if I was emptying completely, a nd I wasn't ??Is having bladder surgery (bladder lift) the end of this month. Has tried azo and monistat with no relief. Can't get in to see urologist.Encounter Diagnosis: BMI 27.0-27.9,adult, Nonsmoker, Urinary frequency, Elevated blood-pressure reading without diagnosis of hypertension, Bladder prolapse, female, acquired [facility] Office Visit On: 27-Oct-2017 8:26 Encounter Reason: Follow up tests - Date: (10/11/17 labs)., [ADDITIONAL REASON] Follow up for chronic medical issues - The patient feels well with minor complai End: 27-Oct-2017 9:16 nts, has good energy level and is sleeping poorly. Patient has been compliant with instructions. Current medication use: no side effects and compliant with dosing regimen. Patient sleeps 4 hours per nig ht. Nutrition: balanced diet and supplemental vitamins. The medical issues the patient is following up for include All identified problems below, blood sugar issues, high blood pressure and high cholesterol. Encounter Diagnosis: Nonsmoker, BMI 27.0-27.9,adult, Nutritional counseling, Chronic GERD, Diabetes mellitus type II, controlled, with no complications, Mixed hyperlipidemia (272.2), Vitamin D deficiency, unspecified, Fatty liver, Displacement of lumbar intervertebral disc without myelopathy (722.10) [facility] Office Visit On: 27-Jul-2017 9:56 Encounter Reason: Follow up tests - Date: (06.29.17 and 07.04.17)., [ADDITIONAL REASON] Follow up ER - Reason for hospitalization note: (SOB - was here that day, cta ordered and sent to er per summary note). , End: 27-Jul-2017 10:29 [ADDITIONAL REASON] Follow up for chronic medical issues - The patient feels well with no complaints, has good energy level and is sleeping well. Current medication use: no side effects. Patient sleeps 5 (5-6) hours per night. The medical issues the patient is following up for include All identified problems below. Encounter Diagnosis: Nonsmoker, Vitamin D deficiency, unspecified, Mixed hyperlipidemia (272.2), BMI 27.0-27.9,adult, Diabetes mellitus type II, controlled, with no complications, Fatty liver, Chronic GERD, Nutritional counseling, Grieving, Thyroid nodule (241.0), Carotid stenosis, bilateral [facility] Office Visit On: 14-Jul-2017 13:45 Encounter Reason: Chest Pain - Onset was 1 day(s) ago (yesterday am). Note for Chest pain: Was here 4 days ago-Was put on antibiotic, and steroid. Still having a lot of post nasal drainage, congestion, cough,extreme SO End: 14-Jul-2017 15:13 B breann with walking-worse since Tuesday. Sputum is not yellow anymore. Was at endocriologist office today and blood pressure and pulse were elevated. Has been having chest pain started 1 day ago and today -has noticed the pain a few times. Pain left chest, sternum and left of breast.- Mild sharp stinging pain. Using breath right nasal strips-not helping, has tried antihistamine- no difference.Encounter Diagnosis: Chest pain (786.50), Nonsmoker, BMI 26.0-26.9,adult, SOB (shortness of breath), Cough [facility] Office Visit On: 11-Jul-2017 9:47 Encounter Reason: Cold Symptoms - Symptoms include nasal congestion, postnasal drainage, productive cough (yellow mucus), facial pressure and headache. Onset was 2 week(s) ago. The symptoms occur constantly. The patient End: 11-Jul-2017 10:26 describes this as worsening (going into chest). Associated symptoms include ear pain and fatigue. Note for Cold symptoms: Symptoms started about 2 weeks with headaches, nasal congestion-blowing out da rk yellow, earaches, facial pressure, coughing up green, chills but no fever. No CP, wheezing, back pain. Sudafed and mucinex for the last 4 days. Mucinex may be helping loosen things up. Breath right strips becuase nose is so congested. Encounter Diagnosis: Nonsmoker, BMI 27.0-27.9,adult, Abnormal lung sounds, SOB (shortness of breath), Facial pressure, Sinusitis, bacterial [facility] Office Visit On: 31-May-2017 8:43 Encounter Reason: Annual Medicare Exam - The patient had reviewed and updated the family history, medication/s, past medical history and social history. Yes the patient did have a mini mental status exam done today. The End: 31-May-2017 11:15 activities of daily living the patient needs help with are none. The patient has driven in past 6 months and put area rugs through house, but the patient has not had fecal incontinence, had urinary inco ntinence, missed or ran out of medications to soon, fallen in the past 6 months, gotten lost, has a medalert necklace or bracelet or put handrails in bathroom. The patient has completed the following pr eventative measures: PAP smear (2014??), mammography (05/16 and dexa 05/20/2015) and colonoscopy (2013 - Dr Ventura and is to go back in 8 years per patient). The patient does not have durable power of a ttorney or living will. The patient has noticed lack of energy. Other providers contributing to the patient's care are other: ([facility] [place] [facility] [place]and eye doc at [facility])., [ADDITIONAL REASON] Well Women Exam - Pap smear: date of last pap: (2014). Menstruation: Last menstrual period date: (post menopausal). Encounter Diagnosis: Post- menopausal, Breast cancer screening, Need for prophylactic vaccination and inoculation against influenza (Renamed from Need for immunization against influenza), Influenza vaccination declined (Renamed from Refused influenza vaccine), BMI 26.0-26.9,adult, Nonsmoker, Encounter for annual general medical examination with abnormal findings in adult, Female bladder prolapse, Bilateral carotid bruits [facility] Office Visit On: 25-May-2017 10:42 Encounter Reason: UTI - The urinary symptoms are described as painful urination, frequency, urgency, hesitancy and burning. The symptoms have been occurring for 1 week and have been increasing. The urine is described as End: 25-May-2017 12:18 clear. The symptoms have been associated with low back pain (typical for pt). Note for Infection: Symptoms have been going on for the last few months, but the last week and a half the symptoms have g oma worse, feeling of urgency and burning with urination. Feels very irritated, urine does have an odor to it, does have vaginal itching and irritation. No new back pain, or abdominal pain. No blood i n the urine, vaginal discharge, fever or chills. Doesn't drink caffeine. Took antibiotics amoxicillin x 10 days and then clindamycin x 7-10 days-within the last two months for tooth. Since then has had these symptoms. History of UTI's. Has tried AZO OTC, and generic monistat and burned really bad x 2 days-quit using it. Have a prolapsed bladder-has been fixed twice, but hasn't worked-Have a pressure feeling in my lower abdomen. Uses estrogen patch. Encounter Diagnosis: Nonsmoker, BMI 27.0-27.9,adult, Urgency of urination, Sensation of pressure in bladder area, Dysuria, Hematuria [facility] Office Visit On: 18-Apr-2017 10:13 Encounter Reason: Follow up for chronic medical issues - The patient feels well with minor complaints, has decreased energy level and is sleeping poorly. Patient has been compliant with instructions. Current medication u End: 18-Apr-2017 15:03 se: no side effects and compliant with dosing regimen. Patient sleeps 6 hours per night. Nutrition: balanced diet.Encounter Diagnosis: Nonsmoker, BMI 27.0- 27.9,adult, Diabetes mellitus type II, controlled, with no complications, Mixed hyperlipidemia (272.2), Chronic GERD, Fatty liver, Vitamin D deficiency, unspecified, Influenza vaccination declined (Renamed from Refused influenza vaccine) [facility] Office Visit On: 16-Feb-2017 10:37 Encounter Reason: Follow up tests - Date: ([facility]).Encounter Diagnosis: BMI 25.0-25.9,adult, Nonsmoker, Mixed hyperlipidemia (272.2), Diabetes mellitus type II, controlled, with no complications End: 16-Feb-2017 11:52 [facility] Phone Encounter On: 18-Jan-2017 10:02 Encounter Diagnosis: Abdominal pain, acute, right lower quadrant End: 18-Jan-2017 10:04 [facility] Office Visit On: 17-Jan-2017 15:14 Encounter Reason: Follow up tests - Diagnostic tests include ultrasound.Encounter Diagnosis: Nonsmoker, BMI 25.0-25.9,adult, Abdominal pain, acute, right lower quadrant, Allergy to contrast media (used for diagnostic x-rays) End: 17-Jan-2017 17:19 [facility] Office Visit On: 12-Jan-2017 8:01 Encounter Reason: Follow up for chronic medical issues - The patient does not feel well, has decreased energy level and is sleeping poorly. Patient has been compliant with instructions. Current medication use: no side ef End: 12-Jan-2017 13:20 fects and compliant with dosing regimen. Patient sleeps 6 hours per night. Nutrition: balanced diet and supplemental vitamins. The medical issues the patient is following up for include All identified p roblems below, blood sugar issues, high blood pressure and high cholesterol. weight :.Encounter Diagnosis: Nonsmoker, Mixed hyperlipidemia (272.2), Vitamin D deficiency, unspecified, Fatty liver, Chronic GERD, Pelvic pain in female, Bone pain, Diabetes mellitus type 2, uncontrolled, without complications [facility] Office Visit On: 11-Oct-2016 7:29 Encounter Reason: Follow up tests - Diagnostic tests include other (blood work)., [ADDITIONAL REASON] Follow up for chronic medical issues - The patient feels well with minor complai End: 11-Oct-2016 8:58 nts (arthritis pain), has decreased energy level and is sleeping poorly. Patient has been compliant with instructions. Current medication use: no side effects and compliant with dosing regimen. Patient sleeps 6 hours per night. Nutrition: balanced diet and supplemental vitamins. The medical issues the patient is following up for include All identified problems below, blood sugar issues, high blood pressure and high cholesterol. weight :. Encounter Diagnosis: Diabetes mellitus type II, controlled, with no complications, BMI 25.0-25.9,adult, Nonsmoker, Vitamin D deficiency, unspecified, Mixed hyperlipidemia (272.2), Chronic GERD, Fatty liver, Osteoarthritis, Thyroid nodule [facility] Office Visit On: 09-Jul-2016 8:25 Encounter Reason: Follow up for chronic medical issues - The patient feels well with minor complaints, has decreased energy level and is sleeping poorly. Patient has been compliant with instructions. Current medication u End: 09-Jul-2016 9:25 se: no side effects and compliant with dosing regimen. Patient sleeps 6 hours per night. Nutrition: balanced diet and supplemental vitamins. The medical issues the patient is following up for include Al l identified problems below, blood sugar issues, high blood pressure and high cholesterol. weight :.Encounter Diagnosis: BMI 27.0-27.9,adult, Nonsmoker, Elevated blood- pressure reading without diagnosis of hypertension, Fatty liver, Chronic GERD, Diabetes mellitus type II, controlled, with no complications, Mixed hyperlipidemia (272.2), Vitamin D deficiency, unspecified [facility] Office Visit On: 27-May-2016 9:36 Encounter Reason: Annual Medicare Exam - The patient had reviewed and updated the family history, medication/s, past medical history and social history. Yes the patient did have a mini mental status exam done today. The End: 27-May-2016 11:18 activities of daily living the patient needs help with are none. The patient has driven in past 6 months and put area rugs through house, but the patient has not had fecal incontinence, had urinary inco ntinence, missed or ran out of medications to soon, fallen in the past 6 months, gotten lost, has a medalert necklace or bracelet or put handrails in bathroom. The patient has completed the following pr eventative measures: PAP smear (2014), mammography (05/16) and colonoscopy (2013). 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 The patient has noticed lack of energy. Other provi ders contributing to the patient's care are other: (pain doc and eye doc).Encounter Diagnosis: Annual Medicare Phyiscal WITHOUT abnormal findings (Renamed from Encounter for general adult medical examination without abnormal findings), Encounter for screening mammogram for breast cancer (Renamed from Encounter for screening mammogram for malignant neoplasm of breast), Encounter for screening for malignant neoplasm of colon (Renamed from Special screening for malignant neoplasms, colon), Postmenopausal (Renamed from Postmenopausal status), Nonsmoker, BMI 27.0-27.9,adult, Pneumococcal vaccination given [facility] Office Visit On: 29-Apr-2016 11:40 Encounter Diagnosis: Encounter for screening mammogram for breast cancer (Renamed from Encounter for screening mammogram for malignant neoplasm of breast), Allergic rhinitis End: 29-Apr-2016 12:21 [facility] Office Visit On: 08-Apr-2016 8:17 Encounter Reason: Follow up for chronic medical issues - The patient feels well with minor complaints (stomach is bothering her....she has been on a lot of prednisone and antibiotics this summer, and my nose it stuffy al End: 08-Apr-2016 10:04 l the time with allergies) and has decreased energy level. Patient has been compliant with instructions. Current medication use: no side effects. Patient sleeps 5 hours per night. Nutrition: balanced di et. The medical issues the patient is following up for include blood sugar issues and gastric reflux. blood pressure range : and weight :.Encounter Diagnosis: BMI 27.0-27.9,adult, Nonsmoker, Diabetes mellitus type 2, uncontrolled, without complications, Fatty liver, Hyperlipidemia, Allergic rhinitis, Reflux gastritis, Elevated blood-pressure reading without diagnosis of hypertension, Dysuria, Aspiration pneumonia [facility] Annotation/Addendum On: 19-Mar-2016 10:40 Encounter Diagnosis: UTI (urinary tract infection) End: 19-Mar-2016 10:44 [facility] Office Visit On: 16-Mar-2016 11:24 Encounter Reason: Follow up ER - Reason for hospitalization note: (bronchitis. ??SOB). Patient has been compliant with instructions. The patient feels well with minor complaints (having urinary frequency). Note for Foll End: 16-Mar-2016 12:15 ow up ER: here for ER follow up wetnt to [facility] on 03-08-2016, with cough secondary to viral upper respieration infection went to ER had Duo neb and prednisone.Chest xray normal. Sent home on signular and r obitussin CF . Also went back to ER on 03-11 for multiple complaints. Today feeling better. But bladder Encounter Diagnosis: Urinary frequency, Cough (786.2) [facility] Office Visit On: 05-Mar-2016 8:44 Encounter Reason: Skin Lesions - The last clinic visit was 1 week(s) ago. Management changes made at the last visit include adding antibiotic. Symptoms include single skin lesion. Lesion(s) are located on the right trunk End: 05-Mar-2016 11:08 area. Onset was 1 week(s) ago. The patient describes this as moderate in severity and improving., [ADDITIONAL REASON] Shortness of Breath - Symptoms include dyspnea. The patient describes this as wo rsening. Previous presentation included shortness of breath. Encounter Diagnosis: Wound discharge, SOB (shortness of breath) on exertion, History of Helicobacter pylori infection, Palpitations (785.1), Allergic rhinitis, Hot flashes, Sinus congestion (478.19) [facility] Office Visit On: 27-Feb-2016 11:53 Encounter Reason: Skin Lesions - Onset was 1 day(s) ago.Encounter Diagnosis: Wound discharge End: 27-Feb-2016 12:20 [facility] Office Visit On: 10-Feb-2016 9:48 Encounter Reason: Follow up acute care visit - The patient feeling better since last seen. Patient has been compliant with instructions. Current medication use: no side effects. Nutrition: balanced diet. The medical issu End: 10-Feb-2016 11:14 es the patient is following up for include other (asp. pneumonia).Encounter Diagnosis: Aspiration pneumonia, Reflux gastritis, Back pain, Knee pain, Abnormal chest xray [facility] Lab Order On: 27-Jan-2016 14:37 Encounter Diagnosis: Cough End: 27-Jan-2016 14:38 [facility] Phone Encounter On: 27-Jan-2016 11:30 Encounter Diagnosis: Unspecified Diagnosis End: 27-Jan-2016 11:39 [facility] Office Visit On: 27-Jan-2016 10:37 Encounter Reason: Shortness of Breath - Symptoms include chest tightness (right side) and cough. Onset was sudden 4 day(s) ago. The patient describes this as worsening. Note for Shortness of breath: The gastric juice c End: 27-Jan-2016 11:30 jamir up to throat last night with extreme SOB afterward Has been told in past that would need daily Gerd medicine after scope. SOB and cough all night after bout of reflux. Ate pizza before bedtime., [ADDITIONAL REASON] Heartburn - Symptoms include chest discomfort, pain and regurgitation. The pain is located in the upper chest. The pain radiates to the right chest. The patient describes the pain a s burning. Onset was sudden. Onset followed eating a spicy meal. The symptoms occur nocturnally. Note for Heartburn: Ate 15 tums right away Encounter Diagnosis: SOB (shortness of breath) on exertion, Reflux gastritis, Aspiration pneumonia, Back pain [facility] Phone Encounter On: 07-Jan-2016 13:07 Encounter Diagnosis: Abnormal finding of blood chemistry, unspecified End: 07-Jan-2016 13:09 [facility] Office Visit On: 10-Nov-2015 14:29 Encounter Reason: Abdominal pain - The onset of the pain has been sudden and has been occurring in a persistent pattern for 3 weeks. The course has been constant. The pain is described as a severe sharp pain and crampy. End: 10-Nov-2015 14:50 The pain is described as being located in the upper abdomen. The pain radiates to the back. The symptoms have no aggravating factors. The symptoms have no relieving factors.Encounter Diagnosis: Colicky RUQ abdominal pain [facility] Office Visit On: 02-Oct-2015 9:07 Encounter Reason: Follow up tests - Date: (labs).Encounter Diagnosis: Hyperlipidemia, Diabetes mellitus type II, controlled, with no complications, Right wrist pain, Bilateral low back pain without sciatica, End: 02-Oct-2015 9:50 Degenerative Disc Disease - Lumbar (722.52) [facility] Phone Encounter On: 01-Oct-2015 17:21 Encounter Diagnosis: Chronic sinusitis End: 01-Oct-2015 17:23 [facility] Office Visit On: 25-Sep-2015 8:25 Encounter Reason: Follow up for chronic medical issues - The patient does not feel well, has decreased energy level and is sleeping poorly. Patient has been compliant with instructions. Current medication use: no side ef End: 25-Sep-2015 9:28 fects and compliant with dosing regimen. Patient sleeps 5 hours per night. Nutrition: inappropriate diet and no supplemental vitamins & iron. The medical issues the patient is following up for inclu de All identified problems below, blood sugar issues, high blood pressure and high cholesterol. blood pressure range :.Encounter Diagnosis: Arthralgia of multiple sites, Pain of right hand, Right hand paresthesia, Bilateral low back pain without sciatica, Right wrist pain, Diabetes mellitus type II, controlled, with no complications, Hyperlipidemia, Acid indigestion (536.8), Thyroid nodule, Fatty liver, Vitamin D deficiency, unspecified, Osteopenia [facility] Phone Encounter On: 20-Jun-2015 14:02 Encounter Diagnosis: Hyperlipidemia End: 20-Jun-2015 14:04 [facility] Office Visit On: 19-Jun-2015 8:10 Encounter Reason: Follow up for chronic medical issues - The patient does not feel well, has good energy level and is sleeping poorly. Patient has been compliant with instructions. Current medication use: no side effects End: 19-Jun-2015 10:56 . Patient sleeps 5 hours per night. Nutrition: balanced diet and no supplemental vitamins & iron. The medical issues the patient is following up for include All identified problems below, blood suga r issues, high blood pressure and high cholesterol. weight :., [ADDITIONAL REASON] Sinusitis - The last clinic visit was 1 week(s) ago. No changes in management we re made at the last visit. Symptoms include nasal congestion, forehead pain, forehead pressure and ear fullness. The symptoms occur constantly. The patient describes this as moderate in severity. , [ADDITIONAL REASON] Follow up tests - Diagnostic tests include other (dexa). Encounter Diagnosis: Diabetes mellitus type 2, uncontrolled, without complications, Vitamin D deficiency, unspecified, Hyperlipidemia, Osteoarthritis (715.96), Fatty liver , Acute recurrent ethmoidal sinusitis, Osteopenia, Thyroid nodule [facility] Office Visit On: 12-May-2015 11:47 Encounter Reason: Annual Medicare Exam - The patient had reviewed and updated the family history, medication/s, past medical history and social history. Yes the patient did have a mini mental status exam done today. The End: 12-May-2015 12:15 activities of daily living the patient needs help with are none. The patient has driven in past 6 months and put area rugs through house, but the patient has not had fecal incontinence, had urinary inco ntinence, missed or ran out of medications to soon, fallen in the past 6 months, gotten lost, has a medalert necklace or bracelet or put handrails in bathroom. The patient has completed the following pr eventative measures: PAP smear (2012), mammography (Tuesday, 05.10.15) and colonoscopy (Aug 2013, Dr Ventura). 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 The patient has noticed l ack of energy. Other providers contributing to the patient's care are card hand and other: ([facility] ).Encounter Diagnosis: Annual Medicare Phyiscal WITHOUT abnormal findings (Renamed from Encounter for general adult medical examination without abnormal findings), Encounter for screening for malignant neoplasm of colon (Renamed from Special screening for malignant neoplasms, colon), Postmenopausal, Chest pain (786.50) [facility] Office Visit On: 10-Mar-2015 10:47 Encounter Reason: Follow up for chronic medical issues - The patient feels well with no complaints, has decreased energy level and is sleeping poorly. Patient has been compliant with instructions. Current medication use: End: 10-Mar-2015 11:33 no side effects and compliant with dosing regimen. Patient sleeps 5 hours per night. Nutrition: balanced diet (eats a lot of junk food).Encounter Diagnosis: DEFICIENCY, VITAMIN D NOS (268.9), Diabetes type II,controlled no comp (250.00), Fatty liver , Mixed hyperlipidemia (272.2), Irritable bowel syndrome (564.1), GERD (530.81), Breast screening (V76.10) [facility] Office Visit On: 05-Dec-2014 8:31 Encounter Reason: Follow up for chronic medical issues - The patient feels well with minor complaints, has decreased energy level and is sleeping well. Patient has been compliant with instructions. Current medication use End: 05-Dec-2014 12:38 : no side effects and compliant with dosing regimen. Patient sleeps 6 hours per night. Nutrition: balanced diet and supplemental vitamins. The medical issues the patient is following up for include All identified problems below, blood sugar issues, high blood pressure and high cholesterol. blood pressure range :.Encounter Diagnosis: Hyperlipidemia (272.4), DEFICIENCY, VITAMIN D NOS (268.9), Fatty liver, Thyroid nodule (241.0), Diabetes type II,controlled no comp (250.00) [facility] Phone Encounter On: 19-Nov-2014 13:52 Encounter Diagnosis: Bronchospasm End: 19-Nov-2014 14:03 [facility] Office Visit On: 19-Nov-2014 11:07 Encounter Reason: Follow up acute care visit - The patient feels the same, has decreased energy level and worsening. Patient has been compliant with instructions. Current medication use: no side effects, compliant with d End: 19-Nov-2014 11:49 osing regimen and not considered effective by patient. The medical issues the patient is following up for include All identified problems below and other (sinus).Encounter Diagnosis: Sinus congestion (478.19), Cough (786.2) [facility] Office Visit On: 13-Nov-2014 10:21 Encounter Reason: Follow up ER - Reason for hospitalization note: (chest pain/SOB). Hospitalization details include: abnormal labs (WBC 12.7) Patient has been compliant with instructions. Current medication use: no side End: 13-Nov-2014 11:23 effects. The patient does not feel well (Still have the sinus issues on the right side mostly). Patient sleeps 5 hours per night. Impact of disease: impact on recreation-mild. Nutrition: balanced diet., [ADDITIONAL REASON] Sinusitis - The last clinic visit was 1 week(s) ago. Symptoms include nasal congestion, postnasal drainage, forehead pain, forehead pressure, cough (clear), ear fullness and ear pre ssure. Onset was sudden 1 week(s) ago. The symptoms occur constantly. The episodes occur daily. The patient describes this as moderate in severity and unchanged. Symptoms are exacerbated by lying down. Current treatment includes none (Done with zpack). By report there is good compliance with treatment. First episode of sinusitis occurred 1 week(s) ago. Previous presentation included nasal congestion, postnasal drainage, forehead pain, forehead pressure, cough and ear discomfort. Encounter Diagnosis: Chronic sinusitis, Dry skin [facility] Office Visit On: 29-Oct-2014 14:37 Encounter Reason: Sinusitis - The last clinic visit was 3 week(s) ago. No changes in management were made at the last visit. Symptoms include cheek pressure. The symptoms occur constantly. The patient describes this as severe.Encounter Diagnosis: End: 29-Oct-2014 14:56 Pain, face, atypical, SINUSITIS, ACUTE NOS (461.9), Tooth abscess [facility] Office Visit On: 24-Oct-2014 10:24 Encounter Reason: Sinusitis/ - The duration of the symptoms are 2 months The course has been recurrent. The sinusitis/ has no relieving factors. Associated features include The symptoms have been associated with nasal di End: 24-Oct-2014 10:54 scharge/stuffy nose and sinus pain.Encounter Diagnosis: Pain, face, atypical, Tooth abscess [facility] Office Visit On: 19-Sep-2014 11:17 Encounter Reason: Upper Respiratory Infection (URI) - The last clinic visit was 4 day(s) ago. No changes in management were made at the last visit. Symptoms include sneezing, nasal congestion and runny nose, while sympto End: 19-Sep-2014 12:01 ms do not include fever or chills. Onset was sudden. The symptoms occur constantly. The patient describes this as moderate in severity and worsening. Associated symptoms include ear pain and ear pluggin g, while associated symptoms do not include nausea, vomiting or diarrhea., [ADDITIONAL REASON] Follow up tests - Date: (09/10/14 ct scan). 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 Patient has been compliant with instructions. Current medication use: n End: 05-Sep-2014 13:53 o side effects and compliant with dosing regimen. Patient sleeps 6 hours per night. Nutrition: balanced diet and no supplemental vitamins & iron. The medical issues the patient is following up for i nclude All identified problems below, blood sugar issues, high blood pressure and high cholesterol. 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 The course has been increasing. The urinary problems are described as End: 17-Jun-2014 12:22 moderate. The urinary problem is characterized as frequency, urgency and painful urination.Encounter Diagnosis: Dysuria (788.1), Abdominal pain [facility] Phone Encounter On: 03-Jun-2014 9:48 Encounter Diagnosis: Fatty liver End: 03-Jun-2014 9:49 [facility] Office Visit On: 22-May-2014 8:42 Encounter Reason: Follow up tests - Date: (05/15/14 labs)., [ADDITIONAL REASON] Follow up for chronic medical issues - The patient feels well with minor complai End: 22-May-2014 12:04 nts, has decreased energy level and is sleeping poorly. Patient has been compliant with instructions. Current medication use: no side effects and compliant with dosing regimen. Patient sleeps 6 hours pe r night. Nutrition: balanced diet and no supplemental vitamins & iron. The medical issues the patient is following up for include All identified problems below, blood sugar issues, high blood pressure and high cholesterol. weight :. , [ADDITIONAL REASON] Annual Medicare Exam - The patient had reviewed and updated the family history, medication/s, past medical history and social history. Yes the patient did have a mini mental status exam done today. The activities of daily living the patient needs help with are none. The patient has had urinary incontinence, driven in past 6 months and put area rugs through house, but the patient h as not had fecal incontinence, missed or ran out of medications to soon, fallen in the past 6 months, gotten lost, has a [employer] or bracelet or put handrails in bathroom. The patient has compl eted the following preventative measures: PAP smear (2 yrs), mammography (2013) and colonoscopy (2013). 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 The patient has noticed nothin g from the geriatic depression scale. Other providers contributing to the patient's care are card hand and other:. Encounter Diagnosis: Diabetes type II,controlled no comp (250.00), Mixed hyperlipidemia (272.2), DEFICIENCY, VITAMIN D NOS (268.9), GERD (530.81), Annual Medicare Physical (V70.0), ELEVATED LFT (794.8), Need for vaccination against Streptococcus pneumoniae [facility] Office Visit On: 22-Apr-2014 10:26 Encounter Diagnosis: ABNORMAL PELIVC ULTRASOUND (793.5) End: 22-Apr-2014 11:27 [facility] Office Visit On: 22-Mar-2014 11:13 Encounter Reason: Follow up tests - Date: (03/04/14 f/u on test that shows I have a cyst on my ovary. But they wree removed 20 yrs ago and I guess I grew one back taht has a cyst on it. So I do have an appt with [facility] on 04/19/14).Encounter Diagnosis: End: 22-Mar-2014 12:07 ABNORMAL PELIVC ULTRASOUND (793.5), Elevated Blood Pressure without diagnosis of Hypertension (796.2) [facility] Phone Encounter On: 01-Mar-2014 16:06 Encounter Diagnosis: Abdominal pain End: 01-Mar-2014 16:08 [facility] Office Visit On: 20-Feb-2014 9:02 Encounter Reason: Follow up for chronic medical issues - The patient feels well with minor complaints, has good energy level and is sleeping poorly. Patient has been compliant with instructions. Current medication use: n End: 20-Feb-2014 11:13 o side effects and compliant with dosing regimen. Patient sleeps 6 hours per night. Nutrition: balanced diet and no supplemental vitamins & iron. The medical issues the patient is following up for i nclude All identified problems below, blood sugar issues, high blood pressure and high cholesterol. blood pressure range :.Encounter Diagnosis: Breast screening (V76.10), DEFICIENCY, VITAMIN D NOS (268.9), Diabetes type II,controlled no comp (250.00) , Mixed hyperlipidemia (272.2), SINUSITIS, ACUTE NOS (461.9) [facility] Office Visit On: 17-Jan-2014 11:05 Encounter Diagnosis: Localized, primary osteoarthritis of lower leg End: 17-Jan-2014 11:50 [facility] Office Visit On: 20-Dec-2013 10:49 Encounter Reason: Follow up tests - Date: (12/12/13 x-ray).Encounter Diagnosis: Localized, primary osteoarthritis of lower leg End: 20-Dec-2013 11:34 [facility] Office Visit On: 19-Dec-2013 10:21 Encounter Reason: Skin Lesions - The last clinic visit was 1 month(s) ago. No changes in management were made at the last visit. Symptoms include single skin lesion. There is no known event that preceded symptom onset.Encounter Diagnosis: End: 19-Dec-2013 14:58 Lesion-Unknown behavior (238.2) [facility] Office Visit On: 12-Dec-2013 8:40 Encounter Reason: Follow up Meds - The patient feels well with minor complaints, has good energy level and is sleeping poorly. Patient has been compliant with instructions. Current medication use: no side effects and com End: 12-Dec-2013 9:39 pliant with dosing regimen. Patient sleeps 5 hours per night.Encounter Diagnosis: Osteoarthritis (715.96), SYMPTOMS INVOLVING CARDIOVASCULAR SYSTEM; OTHER ABNORMAL HEART SOUNDS (785.3), SOB (786.05), ARTHRALGIAS 719.40, Localized, primary osteoarthritis of lower leg [facility] Phone Encounter On: 21-Nov-2013 13:40 Encounter Diagnosis: Unspecified Diagnosis End: 21-Nov-2013 13:42 [facility] Office Visit On: 21-Nov-2013 10:33 Encounter Reason: Follow up for chronic medical issues - The patient does not feel well (sob and racing heart), has decreased energy level and is sleeping poorly. Patient has been compliant with instructions. Current med End: 21-Nov-2013 13:09 ication use: no side effects. Patient sleeps 6 hours per night. Nutrition: balanced diet. The medical issues the patient is following up for include All identified problems below, blood sugar issues, high blood pressure and high cholesterol. Encounter Diagnosis: SOB (786.05), Allergic Rhinitis(477.9), DEFICIENCY, VITAMIN D NOS (268.9), Hyperlipidemia (272.4), Diabetes type II,controlled no comp (250.00), GERD (530.81) [facility] Office Visit On: 27-Aug-2013 18:13 Encounter Diagnosis: Hyperlipidemia (272.4) End: 27-Aug-2013 18:15 [facility] Office Visit On: 22-Aug-2013 10:54 Encounter Reason: Follow up for chronic medical issues - The patient does not feel well (still has foot pain that she was seen here in jul), has decreased energy level and is sleeping poorly. Patient has been compliant w End: 22-Aug-2013 11:35 ith instructions. Current medication use: no side effects and compliant with dosing regimen. Patient sleeps 6 hours per night. Nutrition: balanced diet. The medical issues the patient is following up fo r include All identified problems below, blood sugar issues, high blood pressure and high cholesterol.Encounter Diagnosis: Diabetes type II,controlled no comp (250.00), Irritable bowel syndrome (564.1), DEFICIENCY, VITAMIN D NOS (268.9), Mixed hyperlipidemia (272.2), Acid indigestion (536.8), Pain of right heel (729.5), SINUSITIS, ACUTE NOS (461.9), Thyroid nodule (241.0) [facility] Office Visit On: 13-Jul-2013 10:04 Encounter Reason: Foot Problem - This condition occurred following a specific injury. The injury involved the right foot. This occurred 2 week(s) ago at home. The injury resulted from a direct blow. Symptoms include foot End: 13-Jul-2013 15:32 pain. Symptoms are located in the right foot. Onset was sudden hour(s) after the injury. The symptoms occur constantly. The patient describes symptoms as severe and worsening. Symptoms are exacerbated by tight shoes, weight bearing, walking, standing and direct pressure. Associated symptoms include pain with shoes and abnormal gait.Encounter Diagnosis: Pain of right heel (729.5), Pain [facility] Office Visit On: 22-May-2013 11:14 Encounter Reason: Headache - Symptoms include new onset headache, while symptoms do not include nausea or vomiting. The headache is located in the entire head. The patient describes the pain as tight and throbbing. Onset End: 22-May-2013 11:59 was 1 week(s) ago. The symptoms occur frequently. Symptoms are exacerbated by neck pain.Encounter Diagnosis: Headache (784.0), Eustachian Tube Dysfunction (381.81), Otalgia, Unspecified (388.70), SINUSITIS, ACUTE NOS (461.9), Muscle Spasm (728.85) , DEFICIENCY, VITAMIN D NOS (268.9), Mixed hyperlipidemia (272.2) [facility] Office Visit On: 14-May-2013 13:32 Encounter Diagnosis: Diabetes type II,controlled no comp (250.00), Hyperlipidemia (272.4) End: 14-May-2013 13:35 [facility] Office Visit On: 14-May-2013 8:07 Encounter Reason: Follow up for chronic medical issues - The patient does not feel well (stomach issues. Woke up with stabbing pains in chest ad then indigestion really bad. But got rid of all that and her stomach hurts End: 14-May-2013 11:16 past 2 weeks.), has decreased energy level and is sleeping poorly. Patient has been compliant with instructions. Current medication use: no side effects and compliant with dosing regimen. Patient sleeps 6 hours per night. Nutrition: inappropriate diet and supplemental vitamins. The medical issues the patient is following up for include All identified problems below, blood sugar issues, high blood pressure and high cholesterol., [ADDITIONAL REASON] Annual Medicare Exam - Yes the patient did have (wisper 0/3 mms 30/30) a mini mental status exam done today. The activities of daily living the patient needs help with are none. The patient has driven in past 6 months and put area rugs through house, but the patient has not had fecal incontinence, had urinary incontinence, missed or ran out of medications to soon, fallen in the pa [address] 6 months, gotten lost, has a medalert necklace or bracelet or put handrails in bathroom. The patient has completed the following preventative measures: PAP smear (2 1/2 years), mammography (2012) and colonoscopy (2007). 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 The patient has noticed nothing from the geriatic depression scale. Other providers contributing to the patient's care are other: (huy bustos). Encounter Diagnosis: Diabetes type II,controlled no comp (250.00), Diverticulosis (562.10), Mixed hyperlipidemia (272.2), DEFICIENCY, VITAMIN D NOS (268.9), Thyroid nodule (241.0), Chest pain (786.50), Epigastric pain (789.06), Acid indigestion (536.8), Annual Medicare Physical (V70.0) [facility] Office Visit On: 12-Feb-2013 9:10 Encounter Reason: Follow up for chronic medical issues - The patient feels well with minor complaints, has good energy level and is sleeping poorly. Patient has been compliant with instructions. Current medication use: n End: 12-Feb-2013 18:50 o side effects and compliant with dosing regimen. Patient sleeps 5 hours per night. Nutrition: balanced diet and no supplemental vitamins & iron. The medical issues the patient is following up for i nclude All identified problems below, blood sugar issues, high blood pressure and high cholesterol. weight :.Encounter Diagnosis: SOB (786.05), Breast screening (V76.10), Mixed hyperlipidemia (272.2), Diverticulosis (562.10), Diabetes type II,controlled no comp (250.00), Family history of brain aneurysm (V17.1) [facility] Office Visit On: 20-Nov-2012 9:22 Encounter Reason: Follow up tests - Date: (11/13/12 labs). 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 Patient has been compliant with instructions. Joseph End: 13-Nov-2012 10:01 t medication use: no side effects and compliant with dosing regimen. Patient sleeps 5 hours per night. Nutrition: inappropriate diet and no supplemental vitamins & iron. The medical issues the patie nt is following up for include All identified problems below, blood sugar issues, high blood pressure and high cholesterol. weight :.Encounter Diagnosis: Hyperlipidemia (272.4), Diabetes type II,controlled no comp (250.00), GERD (530.81), Diverticulosis (562.10), Abnormal Glucose Tolerance Test (790.22), ARTHRALGIAS 719.40, FATIGUE (780.79), Thyroid nodule (241.0) [facility] Phone Encounter On: 08-Jun-2012 15:23 Encounter Diagnosis: Hyperlipidemia (272.4) End: 08-Jun-2012 15:24 [facility] Office Visit On: 17-May-2012 9:39 Encounter Reason: Follow up for chronic medical issues - The patient feels well with minor complaints, has decreased energy level and is sleeping poorly. Patient has been compliant with instructions. Patient sleeps 5 fito End: 17-May-2012 10:23 rs per night. Nutrition: balanced diet and supplemental vitamins. The medical issues the patient is following up for include All identified problems below, blood sugar issues, gastric reflux and high bl ood pressure. blood pressure range : and weight :.Encounter Diagnosis: Diabetes type II,controlled no comp (250.00), Mixed hyperlipidemia (272.2), Hiatal hernia (553.3), Tinea corporis (110.5), SOB (786.05) [facility] Office Visit On: 27-Apr-2012 9:04 Encounter Reason: Follow up acute care visit - The patient feeling better since last seen. Patient has been compliant with instructions. Current medication use: no side effects and compliant with dosing regimen. Patient End: 27-Apr-2012 10:04 sleeps 5 hours per night. Nutrition: balanced diet and supplemental vitamins. The medical issues the patient is following up for include All identified problems below.Encounter Diagnosis: Chest pain (786.59), SOB (786.05) [facility] Office Visit On: 13-Apr-2012 8:24 Encounter Reason: Follow up tests - Diagnostic tests include ECHO (04/12/12) and other (stress test 04-11-12). Date: (labs 04-06-[address]Encounter Diagnosis: SOB (786.05), Abnormal CT(793.9), Goiter (240.9), Hiatal hernia (553.3), End: 13-Apr-2012 15:12 SYMPTOM, FEVER, UNSPECIFIED (780.60), Allergic Rhinitis(477.9) [facility] Annotation/Addendum On: 07-Apr-2012 9:02 Encounter Diagnosis: SOB (786.05) End: 07-Apr-2012 9:04 [facility] Office Visit On: 06-Apr-2012 10:37 Encounter Reason: Shortness of Breath - The last clinic visit was 2 week(s) ago. No changes in management were made at the last visit. Symptoms include dyspnea, weakness and choking sensation, while symptoms do not inclu End: 06-Apr-2012 12:38 de cough or wheezing. Onset was sudden 2 week(s) ago. There is no known event that preceded symptom onset. The symptoms occur constantly. The patient describes this as severe and unchanged. Symptoms are not relieved by rest or sitting up. Associated symptoms include fever, while associated symptoms do not include sore throat. The patient is not currently being treated for this problem.Encounter Diagnosis: SOB (786.05), SYMPTOM, FEVER, UNSPECIFIED (780.60), Chest pain (786.59) [facility] Office Visit On: 21-Mar-2012 13:07 Encounter Reason: Follow up acute care visit - The patient feeling better since last seen and improving. Patient sleeps 6 hours per night. The medical issues the patient is following up for include All identified problem End: 21-Mar-2012 13:31 s below and other (nausea, dysuria).Encounter Diagnosis: Urinary frequency (788.41) [facility] Visit On: 13-Mar-2012 14:29 Encounter Reason: Urinary problems - The onset of the urinary problems has been sudden and they have been occurring in a persistent pattern for 4 days. The course has been increasing. The urinary problems are described a End: 13-Mar-2012 14:49 s moderate. The urinary problem is characterized as frequency, hesitancy, urgency and painful urination. There has been associated fever / chills and nausea.Encounter Diagnosis: Dysuria (788.1), SYMPTOM, NAUSEA ALONE (787.02), Bladder Problems [facility] Office Visit On: 17-Jan-2012 9:53 Encounter Reason: Follow up tests - Date: (01/10/12 labs).Encounter Diagnosis: Mixed hyperlipidemia (272.2), Diabetes type II,controlled no comp (250.00), DEFICIENCY, VITAMIN D NOS (268.9) End: 17-Jan-2012 10:34 [facility] Visit On: 10-Jan-2012 11:27 Encounter Reason: Follow up for chronic medical issues - The patient feels well with no complaints, has good energy level and is sleeping poorly. Patient has been compliant with instructions. Current medication use: no s End: 10-Jan-2012 17:49 ramos effects and compliant with dosing regimen. Patient sleeps 6 hours per night. Nutrition: balanced diet and supplemental vitamins. The medical issues the patient is following up for include All identi fied problems below, blood sugar issues, high blood pressure and high cholesterol.Encounter Diagnosis: Diabetes type II,controlled no comp (250.00), Displacement of lumbar intervertebral disc without myelopathy (722.10), Osteoarthritis (715.96), Irritable bowel syndrome (564.1), Mixed hyperlipidemia (272.2), GERD (530.81) [facility] Office Visit On: 18-Nov-2011 12:11 Encounter Reason: Back pain - The onset of the pain has been acute and has been occurring in a persistent pattern for 2 months. The course has been increasing and occurs more at night. The pain is characterized as a dull End: 18-Nov-2011 12:52 ache and shooting. The pain is described as being located in the sacral area. The pain radiates to the left thigh (left buttock and thigh occassionally down to toes). There are no precipitating factors . The symptoms are aggravated by prolonged standing. The symptoms are relieved by nothing (minimal relief with massage). The pain has been associated with hip pain, while there has been no chills, bladd er dysfunction, incontinence of stool or incontinence of urine. Note for Back pain: nerve blocks done [id number] which helpedEncounter Diagnosis: Displacement of lumbar intervertebral disc without myelopathy (722.10), LOW BACK PAIN WITH RADICULOPATHY (724.4) [facility] Office Visit On: 06-Oct-2011 8:40 Encounter Reason: Follow up for chronic medical issues - The patient does not feel well, has decreased energy level and is sleeping poorly. Patient has been compliant with instructions. Current medication use: no side ef End: 06-Oct-2011 9:39 fects and compliant with dosing regimen. Patient sleeps 5 hours per night. Nutrition: inappropriate diet and supplemental vitamins. The medical issues the patient is following up for include All identif ied problems below, blood sugar issues, gastric reflux and high blood pressure. fasting blood sugars :., [ADDITIONAL REASON] Follow up tests - Date: (LABS 10/06/11). Encounter Diagnosis: Diabetes type II,controlled no comp (250.00), Hyperlipidemia (272.4), Irritable bowel syndrome (564.1), DEFICIENCY, VITAMIN D NOS (268.9), Osteopenia (733.90), GERD (530.81), ABNORMALITY, HAIR (704.2), DRY SKIN DERMATITIS (698.8), Tinea corporis (110.5) [facility] Office Visit On: 07-Jul-2011 10:53 Encounter Reason: Follow up tests - Date: (labs 06/25/11)., [ADDITIONAL REASON] Follow up for chronic medical issues - The patient feels well with minor complai End: 07-Jul-2011 11:28 nts, has decreased energy level and is sleeping poorly. Patient has been compliant with instructions. Current medication use: no side effects and compliant with dosing regimen. Patient sleeps 5 hours pe r night. Nutrition: balanced diet and supplemental vitamins. The medical issues the patient is following up for include All identified problems below, blood sugar issues, gastric reflux and high blood p ressure. blood pressure range :, fasting blood sugars : and weight :. Encounter Diagnosis: Hyperlipidemia (272.4), GERD (530.81), DEFICIENCY, VITAMIN D NOS (268.9), Abnormal Glucose Tolerance Test (790.22), Diabetes type II,controlled no comp (250.00) [facility] Office Visit On: 06-Jul-2011 12:37 [facility] End: 07-Jul-2011 8:45 Office Visit On: 28-Apr-2011 15:12 Encounter Reason: Follow up for chronic medical issues - The patient feels well with minor complaints, has decreased energy level and is sleeping poorly. Patient has been compliant with instructions. Current medication u End: 28-Apr-2011 16:13 se: no side effects and compliant with dosing regimen. Patient sleeps 7 hours per night. Nutrition: balanced diet and supplemental vitamins. The medical issues the patient is following up for include Al l identified problems below, blood sugar issues, gastric reflux, high blood pressure and high cholesterol. blood pressure range : and weight :.Encounter Diagnosis: GERD (530.81), Hyperlipidemia (272.4), Osteoarthritis (715.96), Sinus congestion (478.19), Diabetes type II,uncontrolled, no comp (250.02) [facility] Phone Encounter On: 07-Jan-2011 8:25 Encounter Diagnosis: Lower Leg Pain (719.46) End: 07-Jan-2011 8:34 [facility] Office Visit On: 04-Jan-2011 13:13 Encounter Reason: Knee Pain - The onset of the knee pain has been gradual and has been occurring in a persistent pattern for 2 weeks. The course has been worsening. The knee pain is severe. The knee pain is characterized End: 04-Jan-2011 14:17 as a sharp stabbing. The knee pain is described as being located in the entire knee (lt). The knee pain is aggravated by physical activity and any movement. There were no relieving factors. The symptom s have been associated with joint swelling, painful ROM and decreased ROM, while the symptoms have not been associated with giving way, catching or locking. There were no previous diagnostic tests. Ther e were no previous evaluations. There has been no previous physical therapy. There has been no previous surgeries. There is no use of assistive devices. Previous medications include Tylenol and Hydrocodone.Encounter Diagnosis: Osteoarthritis (715.96) , Lower Leg Pain (719.46) [facility] Office Visit On: 31-Dec-2010 9:57 Encounter Reason: Nurse procedure visit - The symptoms have been associated with other (urine recheck).Encounter Diagnosis: Hematuria, unspecified (599.70) End: 31-Dec-2010 11:53 [facility] Office Visit On: 11-Dec-2010 13:24 Encounter Reason: Urinary problems - The onset of the urinary problems has been sudden (Has been on bactrim and noticed still has white floaters) and they have been occurring in a persistent pattern for [address] End: 11-Dec-2010 13:49 se has been increasing. The urinary problems are described as moderate. There has been no associated fever / chills or nausea.Encounter Diagnosis: Urinary frequency (788.41), Hematuria, unspecified (599.70), GERD (530.81) [facility] Office Visit On: 27-Nov-2010 13:17 Encounter Reason: Urinary problems - The onset of the urinary problems has been sudden and they have been occurring in a persistent pattern for 3 days. The course has been increasing. The urinary problems are described a End: 27-Nov-2010 13:42 s moderate. The urinary problem is characterized as frequency and urgency. There has been associated back pain.Encounter Diagnosis: Urinary frequency (788.41) [facility] Erroneous Entry On: 14-Oct-2010 14:54 Encounter Diagnosis: ABNORMALITY, HAIR (704.2) End: 14-Oct-2010 14:55 [facility] Office Visit On: 14-Oct-2010 13:06 Encounter Reason: Follow up, Laboratory Test Results - Date: (10-08 and 10-12).Encounter Diagnosis: Mixed hyperlipidemia (272.2), DEFICIENCY, VITAMIN D NOS (268.9), ABNORMALITY, HAIR (704.2) End: 14-Oct-2010 14:22 [facility] Office Visit On: 12-Oct-2010 9:58 Encounter Reason: Knee Pain - The onset of the knee pain has been gradual and has been occurring in an episodic pattern for years. Each episode lasts years. The course has been gradually worsening. The knee pain is moder End: 12-Oct-2010 11:50 ate to severe. The knee pain is described as being located in the entire knee.Encounter Diagnosis: Lower Leg Pain (719.46), Osteoarthritis (715.96) [facility] Office Visit On: 07-Oct-2010 9:47 Encounter Reason: Follow up for chronic medical issues - The patient does not feel well, has decreased energy level and is sleeping poorly. Patient has been compliant with instructions. Current medication use: no side ef End: 07-Oct-2010 11:32 fects and compliant with dosing regimen. Patient sleeps 6 hours per night. Nutrition: balanced diet and supplemental vitamins. The medical issues the patient is following up for include All identified p roblems below, blood sugar issues, high blood pressure, high cholesterol and hypothyroid. blood pressure range :.Encounter Diagnosis: Abnormal Glucose Tolerance Test (790.22), Osteopenia (733.90), Dysphagia, unspecified (787.20), GERD (530.81), arthritis,unspecified (716.90), Irritable bowel syndrome (564.1), SINUSITIS, ACUTE NOS (461.9), ABNORMALITY, HAIR (704.2) [facility] Office Visit On: 11-Sep-2010 11:14 [facility] End: 11-Sep-2010 11:30 Annotation/Addendum On: 14-Jul-2010 11:13 Encounter Diagnosis: DEFICIENCY, VITAMIN D NOS (268.9) End: 14-Jul-2010 11:17 [facility] Office Visit On: 13-Jul-2010 8:21 Encounter Reason: Well Women Exam - The patient feels well with minor complaints, has good energy level and is sleeping well. Pap smear: date of last pap: (3 yrs). Contraceptive history: The patient is not using any meth End: 13-Jul-2010 8:36 od of contraception at this time. Patient does not exercise. The patient reports that she performs monthly self breast exam. Calcium intake includes 1200 mg daily supplment. The patient denies the use o f oral contraceptives or hormone replacement therapy.Encounter Diagnosis: Well Woman Exam , Medicare (V76.2), Osteopenia (733.90) [facility] Office Visit On: 18-Jun-2010 9:07 Encounter Reason: Follow up, Laboratory Test Results - Date: (06/10/10).Encounter Diagnosis: Abnormal EKG(794.31), Low HDL (272.5), Mixed hyperlipidemia (272.2), Abnormal Glucose Tolerance Test (790.22) End: 18-Jun-2010 9:54 [facility] Office Visit On: 10-Jun-2010 7:48 Encounter Reason: Follow up for chronic medical issues - The patient does not feel well, has decreased energy level and is sleeping poorly. Patient has been non- compliant with instructions. Current medication use: no tessie End: 10-Jun-2010 12:44 e effects and non-compliant with dosing regimen. Patient sleeps 5 hours per night. Nutrition: balanced diet and no supplemental vitamins & iron. The medical issues the patient is following up for in clude All identified problems below, blood sugar issues, high blood pressure and high cholesterol. blood pressure range :.Encounter Diagnosis: Abnormal Glucose Tolerance Test (790.22), Hyperlipidemia (272.4), GERD (530.81), Elevated Blood Pressure without diagnosis of Hypertension (796.2), Diarrhea (787.91), Irritable bowel syndrome (564.1), Epigastric pain (789.06), Dysphagia, unspecified (787.20), Abnormal EKG(794.31) [facility] Office Visit On: 04-Jul-2008 9:18 Encounter Reason: Follow up tests - Diagnostic tests include bone scan (06-25-08 bone density) and mammography. , [ADDITIONAL REASON] Follow up, Laboratory Test Results - Date: (06/19/08). Encounter Diagnosis: Osteopenia (733.90), End: 04-Jul-2008 11:20 Hyperlipidemia (272.4), Weight gain (783.1) [facility] Office Visit On: 19-Jun-2008 7:51 Encounter Reason: Follow up for chronic medical issues - The patient feels well with minor complaints ,has decreased energy level and is sleeping poorly. Patient has been compliant with instructions. Current medication u End: 19-Jun-2008 8:31 se: no side effects and compliant with dosing regimen. Patient sleeps 5 hours per night. Nutrition: inappropriate diet and no supplemental vitamins & iron. The medical issues the patient is followin g up for include All identified problems below and high cholesterol. weight :. Encounter Diagnosis: Abnormal Glucose Tolerance Test (790.22), Hyperlipidemia (272.4), Palpitations (785.1), Displacement of lumbar intervertebral disc without myelopathy (722.10), GERD (530.81), Diverticulosis (562.10), Osteopenia (733.90) [facility] Office Visit On: 08-Feb-2008 11:42 Encounter Reason: Well Women Exam - The patient feels well with minor complaints ,has good energy level and is sleeping well. Pap smear: date of last pap: (). Contraceptive history: The patient is not using any metho End: 08-Feb-2008 12:13 d of contraception at this time. Patient does not exercise. The patient reports that she performs monthly self breast exam. Calcium intake includes 1200 mg daily supplment. Previous evaluations: hystere ctomy. The patient has been using hormone replacement therapy, while she denies the use of oral contraceptives. Encounter Diagnosis: Well Woman Exam , Medicare (V76.2) [facility] Office Visit On: 26-Jan-2008 8:05 Encounter Reason: Follow up, Laboratory Test Results - Date: (01-19-08 on face sheet). Encounter Diagnosis: Abnormal Glucose Tolerance Test (790.22), Hyperlipidemia (272.4), Yeast Infection: Candidiasis of Unspecified Site (112.9) End: 26-Jan-2008 11:20 [facility] Office Visit On: 18-Dec-2007 9:52 Encounter Reason: Follow up for chronic medical issues - The patient feels well with minor complaints ,is sleeping poorly and is sleeping well. Patient has been compliant with instructions. Current medication use: no tessie End: 18-Dec-2007 16:56 e effects and compliant with dosing regimen. Patient sleeps 5 hours per night. Nutrition: balanced diet and no supplemental vitamins & iron. The medical issues the patient is following up for includ e All identified problems below ,gastric reflux ,high cholesterol and osteoporosis/osteopenia. Encounter Diagnosis: Hyperlipidemia (272.4), Osteopenia (733.90), Yeast Infection: Candidiasis of Unspecified Site (112.9), GERD (530.81), Diverticulosis (562.10), Allergic Rhinitis(477.9) [facility] Annotation/Addendum On: 18-Oct-2007 15:36 Encounter Diagnosis: BRONCHITIS, NOT SPECIFIED ACUTE OR CHRONIC (490.) End: 18-Oct-2007 15:47 [facility] Office Visit On: 03-Oct-2007 8:12 Encounter Reason: Nasal congestion - The onset of the nasal congestion has been sudden and has been occurring in a persistent pattern for 3 days. The course has been constant. The nasal congestion is described as moderat End: 03-Oct-2007 9:16 e. Note for Nasal congestion: clear, [ADDITIONAL REASON] Cough - The onset of the cough has been sudden (yesterday). The cough is characterized as dry. The cough occurs all the time. The symptoms are not aggravated by supine posture or me als. The symptoms have been associated with hoarseness ,runny nose and wheezing, while the symptoms have not been associated with fever ,headache ,night sweats or sore throat. Encounter Diagnosis: BRONCHITIS, NOT SPECIFIED ACUTE OR CHRONIC (490.) , SOB (786.05), Cough (786.2) [facility] Office Visit On: 28-Jul-2007 10:39 Encounter Reason: Follow up, Laboratory Test Results - Date: (07-13-07). Encounter Diagnosis: Hematuria (599.7), Parasthesia (782.0), GERD (530.81), SOB (786.05) End: 28-Jul-2007 11:08 [facility] Office Visit On: 12-Jul-2007 10:24 Encounter Reason: Heartburn - The onset of the heartburn has been gradual and has been occurring in a persistent pattern for years. The course has been decreasing. The heartburn is characterized as burning. The heartburn End: 12-Jul-2007 11:20 is described as being located in the retrosternal area. The heartburn does not radiate. The symptoms are aggravated by large meals ,alcohol and lying down. The symptoms have no relieving factors. Note for Heartburn: was doing better for 1 week but started back up again.Encounter Diagnosis: GERD (530.81), Parasthesia (782.0), SOB (786.05) [facility] Office Visit On: 20-Jun-2007 8:31 Encounter Reason: Follow up for chronic medical issues - The patient feels well with minor complaints ,has decreased energy level and is sleeping poorly. Patient has been compliant with instructions. Current medication u End: 20-Jun-2007 9:17 se: no side effects and compliant with dosing regimen. Patient sleeps 5 hours per night. Nutrition: inappropriate diet and no supplemental vitamins & iron. The medical issues the patient is followin g up for include All identified problems below ,gastric reflux ,high blood pressure and high cholesterol. , [ADDITIONAL REASON] Follow up, Laboratory Test Results - Date: (06-09-07 on face sheet). , [ADDITIONAL REASON] Heartburn - The onset of the heartburn has been gradual and has been occurring in a persistent pattern for years. The course has been increasing. The heartburn is characterized as b urning. The heartburn is described as being located in the retrosternal area. The heartburn does not radiate. The symptoms are aggravated by large meals ,alcohol and lying down. The symptoms have no relieving factors. Encounter Diagnosis: GERD (530.81), Hiatal hernia (553.3), Hyperlipidemia (272.4), SOB (786.05) [facility] Office Visit On: 19-Apr-2007 15:47 Encounter Reason: Urinary problems - The onset of the urinary problems has been gradual and they have been occurring in an intermittent pattern for 2 weeks. The course has been increasing. The urinary problems are descri End: 19-Apr-2007 16:26 bed as moderate. The urinary problem is characterized as frequency ,urgency and painful urination. Past medical history : kidney stones (years ago 1 per pt.) and recurrent urinary tract infection. Encounter Diagnosis: Dysuria (788.1) [facility] Office Visit On: 06-Mar-2007 8:18 Encounter Reason: Leg pain - The leg pain began suddenly and has been occurring for 2 weeks. The symptoms have been occurring in a persistent pattern. The symptoms are described as a burning sensation ,cramping ,ache and End: 06-Mar-2007 11:17 shooting pain and are moderate to severe. The symptoms occur at rest ,at night and during the day. There is involvement of the left lower extremity. There are no precipitating factors. There are no agg ravating factors. There are no relieving factors. Note for Leg pain: No travel. Is on an Estrogen patch. Encounter Diagnosis: Calf pain (729.5), Lower Leg Pain (719.46) [facility] Office Visit On: 22-Feb-2007 8:02 Encounter Reason: Follow up, Diagnostic Procedure Results - Diagnostic tests include bone scan and mammography. Date: (02-09-07). Encounter Diagnosis: Osteopenia (733.90), Abnormal mammogram (793.80), Hyperlipidemia (272.4), SOB (786.05) End: 22-Feb-2007 13:12 [facility] Nurse Visit On: 25-Jan-2007 13:25 Encounter Diagnosis: SOB (786.05), Palpitations (785.1) End: 25-Jan-2007 13:58 [facility] Office Visit On: 19-Jan-2007 11:49 Encounter Reason: Well Women Exam - The patient feels well with no complaints. Pap smear: date of last pap: (2003). Contraceptive history: The patient is not using any method of contraception at this time. Patient does n End: 19-Jan-2007 12:26 ot exercise. The patient's libido is normal. The patient reports that she performs monthly self breast exam. Previous evaluations: hysterectomy. The patient has been using hormone replacement therapy (C limara patch), while she denies the use of oral contraceptives. Encounter Diagnosis: Well Women Exam (V72.31)( Pap, Mammo, Routine Female and Dexa), Yeast Infection: Candidiasis of Unspecified Site (112.9) [facility] Office Visit On: 09-Jan-2007 10:08 Encounter Reason: Follow up for chronic medical issues - The patient feels well with minor complaints (dysuria) ,has decreased energy level and is sleeping poorly. Patient has been compliant with instructions. Current sd End: 09-Jan-2007 11:58 dication use: no side effects ,compliant with dosing regimen and considered effective by patient. Patient sleeps 5 (broken) hours per night. Impact of disease: no overall impact. Nutrition: balanced t. The medical issues the patient is following up for include All identified problems below and gastric reflux. Encounter Diagnosis: Palpitations (785.1), SOB (786.05), SYMPTOMS INVOLVING CARDIOVASCULAR SYSTEM; OTHER ABNORMAL HEART SOUNDS (785.3), GERD (530.81), Allergic Rhinitis(477.9), Diverticulosis (562.10), Dysuria (788.1) [facility] Historical Summary On: 27-Jun-2006 9:44 [facility] End: 27-Jun-2006 10:06 Payers MedicareAARP/Blayne Hickman; clarissa guarantor
--- OUTSIDE RECORDS SUMMARY | 2018-10-22 09:43 | XMS RPT_ITS ---
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 on 05/09/2018 Preliminary chief complaint data, not yet signed by the author as of Instructions Instruction Description Start Date Please follow-up with Primary Care Physician or Artist Blacksmith for treatment or adjustment of medication regarding elevated blood pressure.Patient advised to follow-up with Primary Care Physician for BMI management. 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 IBUPROFEN 600 Take 1 tablet / IBUPROFEN [id number] Alejandra A MG TABS by mouth 3 06 [place] times a day EXPLOSIVE TECHNICIAN-FIRE WATCHER HYDROCODONE-A twice daily / HYDROCODONE-ACETAM [id number] Godfrey Angulo CETAMINOPHEN 28 INOPHEN Andre 7.5-325 MG TABS OMEPRAZOLE 40 1 capsule by / OMEPRAZOLE [id number] Abbey MG CPDR mouth once 30 Allison Fouse daily VITAMIN D3 1 capsule by / CHOLECALCIFEROL 74199685429 Abbey 57060 UNIT mouth once a 30 Allison Fouse CAPS week ZOCOR 40 MG 1 tablet daily / SIMVASTATIN [id number] Abbey TABS 30 Allison Fouse Conditions or Problems Problem Name Problem Onset Status Entry Provider Comment Standard Annotate Code Date Date Description Primary 917715903 Active Godfrey Angulo 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 Vital Signs Date Name Value Unit Description BMI (Body Mass 28.09 kg/m2 Body Mass Index Index) [Ratio] Preliminary vital sign data, not yet signed by the author as of BP Diastolic 85 mm[Hg] blood pressure, diastolic Preliminary vital sign data, not yet signed by the author as of BP Diastolic 94 mm[Hg] blood pressure, diastolic, second observation Preliminary vital sign data, not yet signed by the author as of BP Systolic 153 mm[Hg] blood pressure, systolic Preliminary vital sign data, not yet signed by the author as of BP Systolic 160 mm[Hg] blood pressure, systolic, second observation Preliminary vital sign data, not yet signed by the author as of Heart Rate 88 /min pulse rate E&M Preliminary vital sign data, not yet signed by the author as of Height 63 [in_us] height E&M Preliminary vital sign data, not yet signed by the author as of Height 160 cm height in centimeters E&M Preliminary vital sign data, not yet signed by the author as of Weight Measured 158 [lb_av] weight E&M Preliminary vital sign data, not yet signed by the author as of Weight Measured 72 kg weight in kilograms E&M Preliminary vital sign data, not yet signed by the author as of Results Date Name Value Unit Range Flag Description Office Visit: Postop - subsequent visit, Rm: 5 MEDS REVIEW Done Documentation of current medications (procedure) Preliminary observation data, not yet signed by the author as of Preliminary observation data, not yet signed by the author as of XRAY HX of the bilateral xray history knee on 05/30/2018 at [facility] Preliminary observation data, not yet signed by the author as of Clinical Summary: [facility] account number Procedures Code Procedure Name Date Entry Date G8730 Pain assessment documented as positive - follow-up documented G8427 Current medications documented 1036F Tobacco screening was negative - non user G8417 BMI documented as above normal parameters - follow-up documented G8950 Blood pressure outside of normal parameters - follow-up documented 1006F-8P Osteoarthritis symptoms and functional status not assessed [facility]-[id number] Patient Encounter Medications Administered No information available. Immunizations No information available. Advance Directives There may be information available, but it has not been provided by the sender. Assessments There may be information available, but it has not been provided by the sender. Review of Systems There may be information available, but it has not been provided by the sender. Family History There may be information available, but it has not been provided by the sender. History of Past Illness There may be information available, but it has not been provided by the sender. History of Present Illness There may be information available, but it has not been provided by the sender.
--- OUTSIDE RECORDS SUMMARY | 2018-10-22 09:43 | XMS RPT_ITS ---
:1945 Author Organization [employer] Address [address] [place] [address] Phone Care Team Providers Name Role Phone Godfrey Powell MD Unavailable Reason for Visit Reason For Visit Description Start Date Postop - subsequent visit Preliminary reason for visit data, not yet signed by the author as of bilateral knee post Bilateral total knee arthroplasty. on 05/09/2018 Preliminary reason for visit data, not yet signed by the author as of Chief Complaint Chief Complaint Description Start Date bilateral knee post Bilateral total knee arthroplasty. on 05/09/2018 Preliminary chief complaint data, not yet signed by the author as of Instructions Instruction Description Start Date Please follow-up with Primary Care Physician or Interceptor Operator for treatment or adjustment of medication regarding elevated blood pressure.Patient advised to follow-up with Primary Care Physician for BMI management. 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 IBUPROFEN 600 Take 1 tablet / IBUPROFEN 83879792346 Alejandra A MG TABS by mouth 3 06 [place] times a day RN CHARGE-BRIM SETTER HYDROCODONE-A twice daily / HYDROCODONE-ACETAM 85775188186 Godfrey Angulo CETAMINOPHEN 28 INOPHEN Andre 7.5-325 MG TABS OMEPRAZOLE 40 1 capsule by / OMEPRAZOLE 68980012985 Abbey MG CPDR mouth once 30 Allison Fouse daily VITAMIN D3 1 capsule by / CHOLECALCIFEROL 13658733262 Abbey 82695 UNIT mouth once a 30 Allison Fouse CAPS week ZOCOR 40 MG 1 tablet daily / SIMVASTATIN 71592780280 Abbey TABS 30 Allison Fouse Conditions or Problems Problem Name Problem Onset Status Entry Provider Comment Standard Annotate Code Date Date Description Primary [id number] Active Godfrey Angulo Primary osteoarthritis (SNOMED CT) 09/29 Andre gonarthrosis of both knees MD , bilateral Allergies, Adverse Reactions, Alerts Allergy Name Reaction Start Date Severity Status Provider Description TETRACYCLINE hives Severe Active Abbey Allison Fouse CONTRAST DYE nausea,vomiting Severe Active Abbey Allison (IODINE) Fouse Social History No information available. Vital Signs Date Name Value Unit Description BMI (Body Mass 28.09 kg/m2 Body Mass Index Index) [Ratio] Preliminary vital sign data, not yet signed by the author as of BP Diastolic 83 mm[Hg] blood pressure, diastolic Preliminary vital sign data, not yet signed by the author as of BP Diastolic 74 mm[Hg] blood pressure, diastolic, second observation Preliminary vital sign data, not yet signed by the author as of BP Systolic 153 mm[Hg] blood pressure, systolic Preliminary vital sign data, not yet signed by the author as of BP Systolic 148 mm[Hg] blood pressure, systolic, second observation Preliminary vital sign data, not yet signed by the author as of Heart Rate 91 /min pulse rate E&M Preliminary vital sign [...] Office Visit: Postop - subsequent visit, Rm: 1 MEDS REVIEW Done Documentation of current medications (procedure) Preliminary observation data, not yet signed by the author as of Preliminary observation data, not yet signed by the author as of XRAY HX of the Bilateral xray history knee on 05/30/2018 at [facility] Preliminary observation data, not yet signed by the author as of Clinical Summary: [facility] account number Procedures Code Procedure Name Date Entry Date G8730 Pain assessment documented as positive - follow-up documented G8427 Current medications documented 1036F Tobacco screening was negative - non user G8417 BMI documented as above normal parameters - follow-up documented G8950 Blood pressure outside of normal parameters - follow-up documented 1006F Osteoarthritis symptoms and functional status assessed [facility]-[id number] Patient Encounter Medications Administered No information available. [...]
--- OUTSIDE RECORDS SUMMARY | 2018-10-22 09:43 | XMS RPT_ITS | Continuity of Care Document ---
:1945 Author Organization [facility] Address [facility] [facility] [address] [place] [address] Phone Care Team Providers Name Role Phone Lorena Arana DO Unavailable Trang PIEDRA, Dr. Cooper Unavailable Guido Jacinto Unavailable Taylor PIEDRA, Jin Becerril Unavailable [facility], [facility] Unavailable Tejal PIEDRA, Stuart Hensley Unavailable Dr. 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) Status: Active Deliveries (Parity) Comments: 2 Status: Active Diabetes mellitus type 2, uncontrolled, without complications (E11.65, 250.02) Status: Active Diabetes mellitus type II, controlled, with no complications (E11.9, 250.00) Status: Active 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, 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) Comments: sees [facility] in [place]- dr poole-- s/p injection recently Status: Active Dry skin (L85.3, 701.1) Status: Active Dysuria (R30.0, 788.1) Comments: recent uti - having some residual dysuria will ck ua and cx again ( last infection ua unimpressive but cx post) Status: Active Dysuria (R30.0, 788.1) Status: Active Elevated blood-pressure reading without diagnosis [...] get injections soon from pain management in [place] Status: Active Pain of right hand (M79.641, 729.5) Status: Active Palpitations (R00.2, 785.1) Status: Active Pneumococcal vaccination given (Z23, V06.6) Status: Active Postmenopausal (Z78.0, V49.81) Status: Active Post-menopausal (Z78.0, V49.81) Status: Active Postmenopausal (Renamed from Postmenopausal status) (Z78.0, V49.81) Status: Active Pregnancies () Comments: 4 Status: Active Reflux gastritis (K29.60, 535.40) Status: Active Retinal hemorrhage, bilateral (H35.63, 362.81) Comments: seeing Retinol specialist in [place] Status: Active Sinus congestion (R09.81, 478.19) Comments: worsening with surgery pending Status: Active Sinusitis, acute (J01.90, 461.9) Status: Active SOB (shortness of breath) (R06.02, 786.05) Status: Active SOB (shortness of breath) on exertion (R06.02, 786.05) -Apr-2012 Comments: worked in [email or web address] for years, recent chest with copd, will [...] Thyroid nodule (E04.1, 241.0) Comments: followed by psych rn Status: Active Thyroid nodule (E04.1, 241.0) Comments: endo states stable/ no significant change- seeing rene - Status: Active Unspecified Diagnosis Status: Active Unspecified [...] weekly Status: Active Medications Name Dates Details CLIMARA PRO, 0.045-0.015MG/DAY (Transdermal Patch Weekly) 1 Patch Weekly weekly for 0 days Quantity: 4 {Patch_Weekly} Refills: 3 Ordered:19-Jun-2008 Iveth Manzano LPN Start : 19-Jun-2008 Active OMEPRAZOLE, 20MG (Oral Capsule Delayed Release) [address] bid for 0 days Quantity: 30 {Capsule} Refills: 2 Ordered:21-Nov-2013 Jose Arana DO, DO, Kathleen Start : 21-Nov-2013 Active Simvastatin 40 MG Oral Tablet 1 Tablet qd for 0 days Quantity: 30 {Tablet} Refills: 6 Ordered:18-Apr-2017 Jose Arana DO, DO, Kathleen Start : 18-Apr-2017 Active Vitamin D3 22393 UNIT Oral Capsule 1 Capsule once a week for 0 days Quantity: 8 {Capsule} Refills: 5 Ordered:09-Feb-2018 Jose Arana DO, DO, Kathleen Start : 09-Feb-2018 Active ACTONEL, 150MG (Oral Tablet) 1 (one) [...] days Quantity: 14 {Tablet} Refills: 0 Ordered:27-Nov-2010 Mirian Hartley CNP Start : 27-Nov-2010 End : 04-Dec-2010 Inactive BUDESONIDE, 32MCG/ACT (Nasal Suspension) 1 (one) Suspension Suspension 2 sprays each nostril daily for 0 days Quantity: 1 {Each} Refills: 3 Ordered:24-Oct-2014 LUIS Chance Start : 08-Aug-2014 End : 24-Oct-2014 Inactive Cefadroxil 500 MG Oral Capsule 1 (one) Capsule bid for 7 days Quantity: 14 {Capsule} Refills: 0 Ordered:27-Feb-2016 Mirian Hartley CNP Start : 27-Feb-2016 End : 05-Mar-2016 Inactive Cipro 500 MG Oral Tablet 1 (one) Tablet bid for 7 days Quantity: 14 {Tablet} Refills: 0 Ordered:19-Mar-2016 Mirian Hartley CNP Start : 19-Mar-2016 End : 26-Mar-2016 Inactive [...] days Quantity: 1 {Sachet} Refills: 0 Ordered:29-Apr-2016 Yasmeen MOREAU Elielmichael Lorena Start : 29-Apr-2016 End : 29-May-2016 Inactive [...] days Quantity: 10 {Tablet} Refills: 0 Ordered:18-Jan-2017 Terir Hernandez Start : 18-Jan-2017 End : 28-Jan-2017 Inactive [...] Iveth Manzano LPN End : 08-Feb-2008 Inactive PRILOSEC OTC, 20MG (Oral Tablet Delayed Release) [address] QD for 0 days Refills: 0 Ordered:28-Apr-2011 Iveth Manzano LPN Start : 07-Oct-2010 End : 28-Apr-2011 Inactive PULMICORT FLEXHALER, 180MCG/ACT (Inhalation Inhaler) 1 (one) Inhaler Twice daily for 0 days Quantity: 1 {Inhaler} Refills: 0 Ordered:20-Jun-2007 Iveth Manzano LPN Start : 20-Jun-2007 End : 19-Jun-2008 Inactive Singulair 10 MG Oral Tablet 1 (one) Tablet Tablet qhs for 0 days Quantity: 30 {Tablet} Refills: 6 Ordered:29-Apr-2016 Yasmeen MOREAU Jose MOREAU Lorena Start : 29-Apr-2016 End : 29-Apr-2016 Inactive [...] days Quantity: 30 {Tablet} Refills: 3 Ordered:11-Oct-2016 Terri Hernandez Start : 20-Jun-2015 End : 11-Oct-2016 Inactive Albuterol Sulfate (2.5 MG/3ML) 0.083% Inhalation Nebulization Solution 1 (one) Nebulized Soln q6hrs for 0 days Quantity: 1 {Package} Refills: 6 Ordered:07-Dec-2017 Gladis Redmond Start : 11-Jul-2017 End : 07-Dec-2017 Discontinued Aspirin Adult Low Dose 81 MG Oral [...] : 03-Mar-2018 Discontinued Comments:This order discontinued per [facility]. CIPRO, 250MG (Oral Tablet) 1 (one) Tablet Twice daily for 0 days Quantity: 20 {Tablet} Refills: 0 Ordered:09-Jan-2007 Abril Stoner Start : 09-Jan-2007 End : 19-Jan-2007 Discontinued ERGOCALCIFEROL, 37447JOSH (Oral Capsule) 1 Capsule q week for [...] Daily for 0 days Refills: 0 Ordered:20-Jun-2007 FlinKalyn oconnell Start : 20-Jun-2007 End : 03-Oct-2007 Discontinued [...] Dr. [facility] at [facility] Status: Inactive as of 09-Jul-2016 Bilateral low [...] (B37.9, 112.9) Comments: will refer to Dr Monahan if no improvement after tx sugars Status: [...] Inactive as of 03-Aug-2018 Diverticulitis (K57.92, 562.11) 2003 Status: Resolved as of 14-Jan-2009 Diverticulosis of [...] Inactive as of 25-Sep-2015 Headache (R51, 784.0) 1981 Status: Inactive as of 24-Oct-2014 Hematuria (R31.9, 599.7) Status: Resolved as of 11-Dec-2008 Hematuria, unspecified (R31.9, 599.70) Status: Inactive as of 27-Oct-2017 Herpes Zoster 2004 Comments: Shigles Status: Inactive as of 24-Oct-2014 Hyperlipidemia (E78.5, 272.4) Status: Inactive as of 09-Jul-2016 Knee pain (M25.569, 719.46) Comments: sees Andre at [facility] Status: Inactive as of 09-Jul-2016 Low back pain (M54.5, 724.2) 1997 Status: Resolved as of 11-Dec-2008 Low HDL (under 40) (E78.6, 272.5) Status: Inactive as of 24-Oct-2014 Mammogram 2003 Status: Inactive as of 24-Oct-2014 Muscle Spasm [...] sees pain specilaist, [facility] [place] Status: Inactive as of 24-Oct-2014 Pain in unspecified joint (M25.50, 719.40) Status: Inactive as of 09-Jul-2016 Pain of lower leg, unspecified laterality (M79.669, 729.5) 12-Oct-2010 Comments: - L- Knee Status: Inactive as of 12-Feb-2013 Pain of right heel (729.5) Comments: not in heel just on extensor surface of foot-- pt going to see clinical nurse specialist in [place] - dr ward -- willl make own [...] abscess (K04.7, 522.5) Comments: ??-- rev dr borwn note-- also rev ct sinus that i [...] Duplex Ultrasound Result: Comments: See Note; NOTES: [facility] Cardiovascular Services [address] [address] Carotid Duplex Ultrasound 03/13/18 0758 MR#: [id number] Acct: [id number] Name: DINAH MILLS Rep #: [id number] : 1945 72 From: Dane Jones MD Attending Dr: Lorena Arana DO Status: REG CLI Ordering Dr: Lorena Arana DO Date: 03/13/18 Location: [facility] Sex: F C Admitte d: Reason [...] Physician: Lorena Arana Performed By: Sheri Hayes, RDORESTES, RVT 03/15/18 0808 Date Dane Jones MD CC: Lorena Arana DO Date Dictated: 03/13/18 0758 Date Transcribed: 03/15/18 0808 Overhead Worker: Signed 20-Jul-2017 12 Lead Electrocardiogram Result: Comments: See Note; NOTES: [facility] Cardiovascular Services [address] [place] [address] 12 Lead EKG 07/14/17 1635 MR#: [id number] Acct: [id number] Name: DINAH HICKMAN Rep #: [id number] : 1945 71 From: Urbano Tam MD [...] Confirmed by OF URBANO REA MD ([id number]), editor producer AMEYA CORONEL ([id number]) on 07/20/2017 1:51:50 PM Referred By: SAIDA Confirmed By:URBANO TAM MD 07/20/17 1351 Date Urbano Tam MD CC: Lorena Arana DO Signed 14-Jul-2017 Emergency Department Summary Result: Comments: See Note; NOTES: [facility] Medical Records Department [address] [place] [address] Emergency Department Summary 07/14/171952 MR#: [id number] Acct: [id number] Name: DINAH HICKMAN Rep #: [id number] : 1945 71 From: Renato Tijerina MD PCP: Lorena Arana DO Status: REG ER - ER Visit Summary Date of Service: 07/14/17 Chief Complaint: [] History of Present Illness: The patient is a 71 F [] Physical Examination: [] Test Results: [] Emergency Department Course and Treatment: [] Treatment Plan: [] Disposition: [] Impression: [] This note was generat ed with CogniK dictation software. It may contain incorrect words, spelling, and punctuation that were not noted in review of the chart prior to signing ED Disposition - Plan for ED Patient: Disposit ion: Home or Assisted Living Chief Complaint: Shortness of Breath Instructions: ED Sinusitis Abx Tx, ED Upper Resp Infec Abx Tx, ED Chest Pain NonCardiac Referrals: Lorena Arana, [Primary Care Pro vider] - As Needed What to do if you have Problems For any increased pain, shortness of breath, bleeding, nausea or vomiting, chest pain, or any unexpected problems, contact your Primary Care Provid er. Call Doctors Registry ([phone]) or report to the closest Emergency Room. Call 911 if necessary. 07/14/171953 <Electronically signed by Renato Tijerina MD> Date Renato Tijerina MD Cosigner Signature (If Indicated): Date CC: Lorena Arana DO 14-Jul-2017 Emergency Department Summary Result: Comments: See Note; NOTES: [facility] Medical Records Department [address] [place] [address] Emergency Department Summary 07/14/17 1656 MR#: [id number] Acct: [id number] Name: DINAH HICKMAN Rep #: [id number] : 1945 71 From: Tyrel Gan MD PCP: Lorena Arana DO Status: REG ER ADDENDUM by Renato Tijerina MD on 07/14/17 at 195 White count is 12.7 thousand with 70 [...] further evaluation. This note was generated with CogniK dictation software. It may contain incorrect words, [...] problems, contact your Primary Care Provider. Call Doctors Registry ([phone]) or report to the closest Emergency Room. Call 911 if necessary. 7 [phone] <Electronically signed by Tyrel Gan MD> Date Tyrel Gan MD Cosigner Signature (If Indicated): Date CC: Lorena Arana DO 14-Jul-2017 Emergency Department Summary Result: Comments: See Note; NOTES: [facility] Medical Records Department [address] [place] [address] Emergency Department Summary 07/14/17 1656 MR#: [id number] Acct: [id number] Name: SILVINADINAH Clarissa Rep #: [id number] : 1945 71 From: Tyrel Gan MD [...] this dictation. The oncoming physician, Dr. Saida estevez follow up on the results and make the appropriate disposition. Treatment Plan: Pending further evaluation. Disposition: Pending further evaluation. Impression: Pending further evaluation. This n ote was generated with CogniK dictation software. It may contain incorrect words, [...] problems, contact your Primary Care Provider. Call Doctors Registry ([phone]) or report to the closest Emergency Room. Call 911 if necessary. 07/14/17 1710 <Electronically signed by Tyrel Gan MD> Date Tyrel Gan MD Cosigner Signature (If Indicated): Date CC: Lorena Arana DO 14-Jul-2017 CTA Chest W/WO Contrast Result: Comments: See Note; NOTES: [facility] Imaging Services [address] [place] [address] CTA Chest W/WO Contrast MR#: [id number] Acct: [id number] Name: DINAH HICKMAN Rep #: [id number] : 1945 F 71 From: Eduard Montalvo MD PCP: Lorena Arana DO Status: REG ER Study: CTA Chest W/WO Contrast Date of Exam: 07/14/17 Exam# [id number] Ordering Dr: Tyrel Gan MD STUDY: CTA [...] Signed: Eduard Montalvo MD at 18:27 EST Beto waldrop [phone], Service support , CC: Tyrel Gan MD; Lorena Arana DO Overhead Worker: Signed 03-Jul-2017 Carotid Duplex Ultrasound Result: Comments: See Note; NOTES: [facility] Cardiovascular Services [address] [place] [address] Carotid Duplex Ultrasound 06/29/17 1306 MR#: [id number] Acct: [id number] Name: DINAH MILLS Rep #: [id number] : 1945 71 From: Dane Jones MD [...] the left vertebral artery. Procedure Carotid Duplex 55461. The exam was diagnostic. Exam performed in department. Inte rpretation Summary Mild (<50%) stenosis right extracranial internal carotid. Moderate (50-69%) stenosis left extracranial internal carotid. Flow within the vertebral arteries is antegrade bilate rally. Ordering Physician: Lorena Arana Performed By: Sheri Hayes, VITALIY, RVT Electronical ly signed by: MD Dane Jones on 07/03/2017 09:28 PM 07/03/172127 Date Dane Jones MD CC: Lorena Arana DO Date Dictated: 06/29/17 1306 Date Transcribed: 07/03/172127 Overhead Worker: Signed 29-Jun-2017 Dexa Bone Density Study (HP) Result: Comments: See Note; NOTES: [facility] Imaging Services [address] [place] [address] Dexa Bone Density Study (HP) MR#: [id number] Acct: [id number] Name: DINAH HICKMAN Rep #: [id number] : 1945 F 71 From: Kale Sanders MD PCP: Lorena Arana DO Status: REG CLI Study: Dexa Bone Density Study (HP) Date of Exam: 06/29/17 Exam# [id number] Ordering Dr: Ute Arana DO STUDY: DUAL [...] Kale Sanders MD at 12:47 EST Tel [phone], Service support , CC: Lorena Arana DO Overhead Worker: Signed 29-Jun-2017 SCREENING MAMM (CAD), BILAT Result: Comments: See Note; NOTES: [facility] Imaging Services [address] [place] [address] SCREENING MAMM (CAD), BILAT MR#: [id number] Acct: [id number] Name: DINAH HICKMAN Rep #: [id number] : 1945 F 71 From: Reynaldo Shipley MD PCP: Lorena Arana DO Status: [facility] CL Study: SCREENING MAMM (CAD), BILAT Date of Exam: 06/29/17 Exam# [id number] Ordering Dr: Lorena Arana DO MAMMOGRAPHY - [...] delay biopsy of a clinically suspicious abnormality. [id number] Electronically Signed: Raul Shipley MD 2016 at 14:22 EST , Service support , CC: Lorena Arana DO Overhead Worker: Signed 17-Jan-2017 Abdomen/Pelvis WITH Contrast Result: Comments: See Note; NOTES: [facility] Imaging Services [address] [place] [address] Verdana 4d Abdomen/Pelvis WITH Contrast MR#: [id number] Acct: [id number] Name: KELTON HICKMAN CHARLIETERELL Clarissa Rep #: [id number] : 1945 F 71 From: Kalyn Gonzalez MD PCP: Lorena Arana DO Status: [facility] CLI Study: Abdomen/Pelvis WITH Contrast Date of Exam: 01/17/17 Exam# [id number] Ordering Dr: Lorena Juares DO STUDY: CT [...] Kalyn Gonzalez MD at 20:50 EDT Tel [phone], Service support , CC: Lorena Arana DO Overhead Worker: Signed 14-Jan-2017 Pelvic (Non ) Result: Comments: See Note; NOTES: [facility] Imaging Services [address] [place] [address] Verdana 4d Pelvic (Non ) MR#: [id number] Acct: [id number] Name: DINAH HICKMAN Rep #: [id number] : 1945 F 71 From: Eduard Montalvo MD PCP: Lorena Arana DO Status: REG CLI Study: Pelvic (Non ) Date of Exam: 01/14/17 Exam# [id number] Ordering Dr: Lorena Arana DO STUDY: ULTRASOUND [...] Service support , CC: Lorena Arana DO Overhead Worker: Signed 19-May-2016 Bilat Scrn Digital AND CAD Result: Comments: See Note; NOTES: [facility] Imaging Services [address] [place] [address] Verdana 4d Bilat Scrn Digital AND CAD MR#: [id number] Acct: [id number] Name: PARVEEN HICKMAN Rep #: [id number] : 1945 F 70 From: Kale Sanders MD PCP: Lorena Arana DO Status: REG CLI Study: Bilat Scrn Digital AND CAD Date of Exam: 05/19/16 Exam# [id number] Ordering Dr: Lorena Juares DO MAMMOGRAPHY - [...] no significant change since the prior study. [facility]/Bilat Scrn Digital AND CAD IMPRESSION: Stable bilateral screening mammogram. Yearly follow-up mammogram recommended. (A) ASS ESSMENT CATEGORY: BIRADS Category 2: Benign. A letter regarding these results will be sent to the patient by the facility within 30 days. Approximately 10% of breast cancers are not detected by mammogr aphy. A normal mammogram should not delay biopsy of a clinically suspicious abnormality. [id number] Electronically Signed: Kale Sanders MD at 8:13 EDT Tel [phone], Service support , CC: Lorena Arana DO Overhead Worker: Signed 12-Mar-2016 Emergency Department Summary Result: Comments: See Note; NOTES: [facility] Medical Records Department [address] [place] [address] Emergency Department Summary MR#: [id number] Acct: [id number] Name: KELTON HICKMAN Rep #: [id number] : 1945 70 From: Quincy Nye MD PCP: Lorena Arana DO Status: DEP ER DATE OF SERVICE: 03/11/2016 CHIEF COMPLAINT: [...] multiple times and has even seen an psych rn and told that her thyroid was normal. [...] DISPOSITION: Discharge. Dr. Quincy Nye MD T: NTS JOB: [id number] 03/12/16 0800 <Electronically signed by Quincy Nye MD> Date Quincy Nye MD Cosigner Signature (If Indicated): Date CC: Lorena Arana DO Date Dictated: 03/11/161226 Date Transcribed: 03/11/161226 Overhead Worker: Signed 11-Mar-2016 Discharge Instruction Result: Comments: See Note; NOTES: [facility] Medical Records Department [address] [place] [address] Discharge Instruction 03/11/16 1228 MR#: [id number] Acct: [id number] Name: DINAH MADISON Rep #: [id number] : 1945 70 From: Quincy Nye MD PCP: Lorena Arana DO Status: [facility] ER ED Disposition - Plan for ED Patient: Chief Complaint: Nausea/Vomiting Instructions: ED Diarrhea, Viral (Child) (Adult) What to do if you have Problems For any increased pain, shortness of breath, bleeding, nausea or vomiting, chest pain, or any unexpected problems, contact your do ctor. Call Doctors Registry ([phone]) or report to the closest Emergency Room. Call 911 if necessary. 03/11/16 1228 <Electronically signed by Quincy Nye MD> Date _ Quincy Nye MD Cosigner Signature (If Indicated): Date CC: Lorena Arana DO 09-Mar-2016 12 Lead Electrocardiogram Result: Comments: See Note; NOTES: [facility] Cardiovascular Services [address] [place] [address] 12 Lead EKG 03/08/16 2302 MR#: [id number] Acct: [id number] Name: DINAH HICKMAN Rep #: [id number] : 1945 70 From: Augusto Quan MD Attending Dr: Status: [facility] ER Ordering Dr: Eduard Mittal MD Date: [...] sinus rhythm Normal ECG Confi rmed by AVELINA PIEDRA, AUGUSTO ([id number]), editor producer AMEYA CORONEL ([id number]) on 03/09/2016 1:25:48 PM Referred By: RAGHAVENDRA Confirmed By:AUGUSTO QUAN MD 03/09/16 1325 Date Augusto Quan MD CC: Lorena Arana DO Date Dictated: 03/08/162301 Date Transcribed: 03/08/162301 Overhead Worker: Signed 09-Mar-2016 Discharge Instruction Result: Comments: See Note; NOTES: [facility] Medical Records Department [address] [place] [address] Discharge Instruction 03/09/16 0005 MR#: [id number] Acct: [id number] Name: DORENE WARNERDINAH Clarissa Rep #: [id number] : 1945 70 From: Eduard Mittal MD [...] problems, contact your doctor. Call Doctors Registry ([phone]) or report to the closest Emergency Room. Call 911 if necessary. 03/09/16 0114 <Electronically signed by Eduard Mittal MD> Nilton e Eduard Mittal MD Cosigner Signature (If Indicated): Date CC: Lorena Arana 09-Mar-2016 Emergency Department Summary Result: Comments: See Note; NOTES: [facility] Medical Records Department [address] [address] [address] Emergency Department Summary MR#: [id number] Acct: [id number] Name: KELTON HICKMAN Rep #: [id number] : 1945 70 From: Eduard Mittal MD PCP: Lorena Arana DO Status: DEP ER DATE OF SERVICE: 03/08/2016 CHIEF COMPLAINT: [...] C: Lorena Arana DO T: NTS JOB: [id number] 03/09/16 0114 <Electronically signed by Eduard Mittal MD> Date Eduard Mittal MD Cosigner Signature (If Indicated): Date CC: Lorena Arana DO Date Dictated: 03/09/1614 Date Transcribed: 03/09/1614 Overhead Worker: Signed 08-Mar-2016 Chest PA and Lateral Result: Comments: See Note; NOTES: [facility] Imaging Services [address] [place] [address] Verdana 4d Chest PA and Lateral MR#: [id number] Acct: [id number] Name: DINAH HICKMAN Rep #: [id number] : 1945 F 70 From: Krishan River PCP: Lorena Arana DO Status: PRE ER Study: Chest PA and Lateral Date of Exam: 03/08/16 Exam# [id number] Ordering Dr: Eduard Mittal MD STUDY : [...] No acute cardiopulmonary disease. Electronically Signed: Krishan DO Aleta at 23:39 EDT , Service support [phone], CC: Eduard Mittal MD; Lorena Arana DO Overhead Worker: Signed 05-Mar-2016 ELECTROCARDIOGRAM, COMPLETE (ECG) (83131) Result: [MEASUREMENTS ANALYSIS] Date of Test: 03/05/2016 10:21:01; Heart Rate: 83; IN Interval: 148; QRS: 92; QT Interval: 374; Corrected QT Interval (QTc): 414; P [place]: 25; QRS [place]: 7; T [place]: 44; Blood Pressure: 142/86 [ECG DIAGNOSTIC STATEMENTS] Date of Test: 03/05/2016 10:21:01; Summary: Sinus Rhythm WITHIN NORMAL LIMITS 27-Jan-2016 Chest PA and Lateral Result: Comments: See Note; NOTES: [facility] Imaging Services [address] [place] [address] Verdana 4d Chest PA and Lateral MR#: [id number] Acct: [id number] Name: DINAH MADISON Rep #: [id number] : 1945 F 70 From: Christian Gamble MD PCP: Lorena Arana DO Status: REG CLI Study: Chest PA and Lateral Date of Exam: 01/27/16 Exam# [id number] Ordering Dr: Mirian Jarvis sa STUDY: X-RAY [...] at 12:26 EDT Tel , Service support [phone], RAD/Chest PA and Lateral IMPRESSION: There is hyperinflation of the lungs consistent with chronic obstructive lung disease (COPD). Electronically Signed: Christian Gamble MD at 12:26 EDT Tel , Service support [phone], CC: Mirian Hartley; Raúl Arana DO Overhead Worker: Signed 05-Nov-2015 NCS and/or EMG Patient Result: Comments: See Note; NOTES: [facility] Pulmonary Services/Neurology [address] [place] [address] NCS and/or EMG Patient MR#: [id number] Acct: [id number] Name: DINAH AN Rep #: [id number] : 1945 70 From: Julio C Kiser MD Referring Dr: Lorena Arana DO Status: REG CLI Ordering Dr: Lorena Arana DO Date: 10/29/15 Location: [facility] Sex: F C DA TE OF SERVICE: [...] Julio C Kiser MD T: NTS JOB: [id number] 11/05/15 1 053 <Electronically signed by Julio C Kiser MD> Date Julio C Kiser MD CC: Julio C Kiser; Lorena Arana DO Date Dictated: 10/29/15 1449 Date Transcribed: 10/29/151448 Overhead Worker: Signed 25-Sep-2015 S-I Jts 3 or More Views Result: Comments: See Note; NOTES: [facility] Imaging Services [address] [place] [id number] [place] [address] 4d S-I Jts 3 or More Views MR#: [id number] Acct: [id number] Name: ARNULFO ALIRIODINAH GANDHI Rep #: [id number] : 1945 F 69 From: Kale Sanders MD PCP: Lorena Arana DO Status: REG CLI Study: S-I Jts 3 or More Views Date of Exam: 09/25/15 Exam# [id number] Order ing Dr: Lorena Arana DO STUDY: [...] Kale Sanders MD at 15:32 EST Tel [phone], Service support [phone], RAD/S-I Jts 3 or More Views IMPRESSION: Degenerative changes of the bilateral sacroi liac joints, as described above. Electronically Signed: Kale Sanders MD at 15:32 EST Tel [phone], Service support [phone], CC: Lorena Arana DO Overhead Worker: Signed 25-Sep-2015 Hand 2 Views Result: Comments: See Note; NOTES: [facility] Imaging Services [address] [place] [address] Verdana 4d Hand 2 Views MR#: [id number] Acct: [id number] Name: LEANA HICKMAN RA Romo Rep #: [id number] : 1945 F 69 From: Kale Sanders MD PCP: Lorena Arana DO Status: REG CLI Study: Hand 2 Views Date of Exam: 09/25/15 Exam# [id number] Ordering Dr: Raúl Arana DO STUDY: X-RAY [...] Kale Sanders MD at 16:11 EST Tel [phone], Service support [phone], RAD/Hand 2 Views IMPRESSION: Degenerative osteoarthritis, as described above. Electronically Signed: Kale Sanders MD at 16:11 EST Tel [phone], Service support [phone], CC: Lorena Arana DO Overhead Worker: Signed 25-Sep-2015 L/S Spine Min 4 Views Result: Comments: See Note; NOTES: [facility] Imaging Services [address] [place] [address] Verdana 4d L/S Spine Min 4 Views MR#: [id number] Acct: [id number] Name: DINAH AN Rep #: [id number] : 1945 F 69 From: Rodri Balderas MD PCP: Lorena Arana DO Status: REG CLI Study: L/S Spine Min 4 Views Date of Exam: 09/25/15 Exam# [id number] Ordering Dr : Lorena Arana DO STUDY: [...] MD at 7:52 EST , Service support [phone], RAD/L/ S Spine Min 4 Views IMPRESSION: Degenerative changes of the spine, as detailed above. Electronically Signed: Rodri Balderas MD at 7:52 EST , Service support , CC: Lorena Arana DO Overhead Worker: Signed 25-Sep-2015 Wrist min 3 Views Result: Comments: See Note; NOTES: [facility] Imaging Services [address] [place] [address] Verdana 4d Wrist min 3 Views MR#: [id number] Acct: [id number] Name: DINAH HICKMAN Rep #: [id number] : 1945 F 69 From: Kale Sanders MD PCP: Lorena Arana DO Status: REG CLI Study: Wrist min 3 Views Date of Exam: 09/25/15 Exam# [id number] Ordering Dr: Lorena Zapata DO STUDY: X-RAY [...] Kale Sanders MD at 12:54 EST Tel [phone], Service support [phone], RAD/Wrist min 3 Views IMPRESSION: Degenerative changes. Electronically Signed: Kale Sanders MD at 12:54 EST Tel [phone], Service support [phone], CC: Raúl Araan DO Overhead Worker: Signed 26-May-2015 Echocardiogram Complete Result: Comments: See Note; NOTES: [facility] Cardiovascular Services [address] [place] [address] Echo Complete 05/26/15 0954 MR#: [id number] Acct: [id number] Name: DINAH GIL Rep #: [id number] : 1945 69 From: Urbano Tam MD Attending Dr: Lorena Arana DO Status: REG CLI Ordering Dr: Lorena Arana DO Date: 05/26/15 Location: [facility] Sex: F C Adm itted: Procedure This [...] Lorena Arana Performed By: Sonja Tavarez RDCS 05/26/15 1110 Date Gladis Tam MD CC: Lorena Arana DO Date Dictated: 05/26/15 0954 Date Transcribed: 05/26/15 1110 Overhead Worker: Signed 26-May-2015 Nuclear Stress Test - Chemical Result: Comments: See Note; NOTES: [facility] Imaging Services [address] [place] [address] Verdana 4d Nuclear Stress Test - Chemical MR#: [id number] Acct: [id number] N jamir: DINAH HICKMAN Rep #: [id number] : 1945 69 From: Urbano Tam MD [...] fraction. Urbano Tam MD T: NTS JOB: [id number] 06/02/15 1031 <Electronic ally signed by Urbano Tam MD> Date Urbano Tam MD CC: Lorena Arana DO Date Dictated: 05/26/151105 Date Transcribed: 05/26/151105 Overhead Worker: Signed 20-May-2015 Dexa Bone Density Study (HP) Result: Comments: See Note; NOTES: [facility] Imaging Services [address] [place] [address] Verdana 4d Dexa Bone Density Study () MR#: [id number] Acct: [id number] Name : HICKMANDINAH A Rep #: [id number] : 1945 F 69 From: Kale Sanders MD PCP: Lorena Arana DO Status: REG CLI Study: Dexa Bone Density Study () Date of Exam: 05/20/15 Exam# [id number]: Lorena Arana DO STUDY: [...] Kale Sanders MD at 15:26 EDT Tel [phone], Service support [phone], CC: Lorena Arana DO Overhead Worker: Signed 09-May-2015 Bilat Scrn Digital AND CAD Result: Comments: See Note; NOTES: [facility] Imaging Services [address] [place] [address] Breast Imaging Report MR#: [id number] Acct: [id number] Name: DINAH HICKMAN Rep #: [id number] : 1945 F 69 From: Kale Sanders MD PCP: Lorena Arana DO Status: REG CLI Study: Bilat Scrn Digital AND CAD Date of Exam: 05/09/15 Exam# [id number] Ordering Dr: Lorena Arana DO MAMMOGRAPHY - [...] Kale Sanders MD at 14:56 EDT Tel [phone], Service support [phone], CC: Lorena Arana DO Overhead Worker: Signed 20-Dec-2014 Operative Report Result: Comments: See Note; NOTES: [facility] Medical Records Department [address] [place] [address] Operative Report MR#: [id number] Acct: [id number] Name: DINAH HICKMAN Rep #: [id number] : 1945 69 From: Edu Mayen MD PCP: Lorena Arana DO Status: [facility] DATE OF SERVICE: 11/22/2014 DATE OF SURGERY: [...] the recovery room in stable condition. Edu Guajardo C: Chante Costello MD T: NTS JOB: [id number] 12/20/14 0727 <Electronically signed by Edu Mayen MD> Date Edu Mayen MD CC: Yelena banerjee MD; Lorena Mayne Date Dictated: 11/22/14824 Date Transcribed: 11/22/14824 Overhead Worker: Signed 10-Nov-2014 12 Lead Electrocardiogram Result: Comments: See Note; NOTES: [facility] Cardiovascular Services [address] [place] [address] 12 Lead EKG 11/05/14 1837 MR#: [id number] Acct: [id number] Name: KELTON HICKMAN Rep #: [id number] : 1945 69 From: Tyrel Morales MD [...] ormal ECG Confirmed by TYREL MORALES ([id number]), editor producer AMEYA CORONEL ([id number]) on 11/07/2014 10: 21:25 AM Referred By: NICO Confirmed By:TYREL MORALES 11/07/14 1021 Date Tyrel Morales MD CC: Lorena Arana DO Date Dictated: 11/05/141836 Date Transcribed: 11/05/141836 Overhead Worker: Signed 06-Nov-2014 Emergency Department Summary Result: Comments: See Note; NOTES: [facility] Medical Records Department [facility] [place] [address] Emergency Department Summary MR#: [id number] Acct: [id number] Name: DINAH MADISON Rep #: [id number] : 1945 69 From: Kalyn Vega MD PCP: Lorena Arana DO Status: DEP ER DATE OF SERVICE: 11/05/2014 CHIEF COMPLAINT: Shortness [...] Sinusitis. 2. Dyspnea. Kalyn Vega MD T: NTS J OB: [id number] 11/06/14 0709 <Electronically signed by Kalyn Vega MD> Date Kalyn Vega MD CC: Lorena Arana DO Date Dictat ed: 11/05/142005 Date Transcribed: 11/05/142005 Overhead Worker: Signed 05-Nov-2014 Discharge Instruction Result: Comments: See Note; NOTES: [facility] Medical Records Department [address] [place] [address] Discharge Instruction 11/05/142001 MR#: [id number] Acct: [id number] Name: DINAH HICKMAN Rep #: [id number] : 1945 69 From: Kalyn Vega MD [...] problems, contact your doctor. Call [facility] ( [phone]) or report to the closest Emergency Room. Call 911 if necessary. 11/05/142004 <Electronically signed by Kalyn Vega MD> Date __ Kalyn Vega MD Cosigner Signature (If Indicated): Date CC: Lorena Arana DO 05-Nov-2014 Chest PA and Lateral Result: Comments: See Note; NOTES: [facility] Imaging Services [address] [place] [address] Radiology Report MR#: [id number] Acct: [id number] Name: DINAH HICKMAN Rep #: [id number] : 1945 F 69 From: Pa Elizabeth DO PCP: Lorena Arana DO Status: DEP ER Study: Chest PA and Lateral Date of Exam: 11/05/14 Exam# [id number] Ordering Dr: Kalyn Vega MD STUDY : [...] Pa Elizabeth DO at 8:08 EDT Tel [phone], Service support [phone], RAD/Chest PA and Lateral IMPRESSION: 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 Electronically Signed: Pa Elizabeth DO at 8:08 EDT Tel [phone], Service support [phone], CC: Kalyn Vega MD; Lorena Arana DO Overhead Worker: Signed 10-Sep-2014 Sinus/Facial Bone Result: Comments: See Note; NOTES: [facility] Imaging Services [address] [place] [address] CAT Scan Report MR#: [id number] Acct: [id number] Name: DINAH HICKMAN Rep #: [id number] : 1945 F 68 From: John Santana MD PCP: Lorena Arana DO Status: REG CLI Study: Sinus/Facial Bone Date of Exam: 09/10/14 Exam# [id number] Ordering Dr: Lorena Arana DO STUDY : [...] Santana MD at 23:48 EST T el [phone], Service support [phone], CC: Lorena Arana DO Overhead Worker: Signed 08-Aug-2014 Spirometry (10907) Comments: see scanned document of test done to see results reviewed today with patient Result: 27-May-2014 Liver Result: Comments: See Note; NOTES: [facility] Imaging Services [address] [place] [address] Ultrasound Report MR#: [id number] Acct: [id number] Name: SILVINADINAH A Rep #: [id number] : 1945 F 68 From: Kale Sanders MD PCP: Lorena Arana DO Status: REG CLI Study: Liver Date of Exam: 05/27/14 Exam# [id number] Ordering Dr: Lorena Arana DO STUDY: ABD [...] Signed: Adele Pryor at 13:58 EDT Tel [phone], Service support [phone], CC: Lorena Arana DO Overhead Worker: Signed 29-Apr-2014 Abdomen/Pelvis WITH Contrast Result: Comments: See Note; NOTES: [facility] Imaging Services [address] [place] [address] CAT Scan Report MR#: [id number] Acct: [id number] Name: SILVINADINAH Clarissa Rep #: [id number] : 1945 F 68 From: Kale Sanders MD PCP: Lorena Arana DO Status: REG CLI Study: Abdomen/Pelvis WITH Contrast Date of Exam: 04/29/14 Exam# [id number] Ordering Dr: Yelena Costello MD STUDY: CT [...] Kale Sanders MD at 9:50 EDT Tel [phone], Service support [phone], CC: Yelnea Costello MD; Lorena Arana DO Overhead Worker: Signed 04-Mar-2014 Transvaginal Non- Result: Comments: See Note; NOTES: [facility] Imaging Services [address] [place] [place] [address] Ultrasound Report MR#: [id number] Acct: [id number] Name: DINAH HICKMAN Rep #: [id number] : 1945 F 68 From: Kale Sanders MD PCP: Status: REG CLI Study: Transvaginal Non- Date of Exam: 03/04/14 Exam# [id number] Ordering Dr: Lorena Arana DO ADDENDUM by Kale Sanders MD on 03/15/14 at 1355 ADDENDUM This is an addendum report for billing. The pelvic ultrasound was performed using both the transabdominal and transvaginal techniques. Electronically Signed: Kale Sanders MD at 13:55 EDT Tel [phone], Service suppor t [phone], 03/15/14 1354 Date cc: Lorena Arana DO * Signed [...] Kale Sanders MD at 17:24 EDT Tel [phone], Serv ice support [phone], CC: Lorena Arana DO Overhead Worker: Signed 04-Mar-2014 Transvaginal Non- Result: Comments: See Note; NOTES: [facility] Imaging Services [address] [place] [address] Ultrasound Report MR#: [id number] Acct: [id number] Name: DINAH HICKMAN Rep #: [id number] : 1945 F 68 From: Kale Sanders MD PCP: Status: REG CLI Study: Transvaginal Non- Date of Exam: 03/04/14 Exam# [id number] Ordering Dr: Lorena Arana DO STUDY: UL [...] Kale Sanders MD at 17:24 EDT Tel [phone], Service support [phone], CC: Lorena Arana DO Overhead Worker: Signed 04-Mar-2014 Bilat Scrn Digital & CAD Result: Comments: See Note; NOTES: [facility] Imaging Services [address] [place] [address] Breast Imaging Report MR#: [id number] Acct: [id number] Name: DINAH HICKMAN Rep #: [id number] : 1945 F 68 From: Kale Sanders MD PCP: Status: REG CLI Exam# [id number] Ordering Dr: Lorena Arana DO MAMMOGRAPHY - [...] Sanders MD 2 at 14:27 EDT Tel [phone], Service support [phone], CC: Lorena Arana DO Overhead Worker: Signed 04-Mar-2014 Pelvic (Non ) Result: Comments: See Note; NOTES: [facility] Imaging Services [address] [place] [address] Ultrasound Report MR#: [id number] Acct: [id number] Name: DINAH HICKMAN Rep #: [id number] : 1945 F 68 From: Klae Sanders MD PCP: Status: REG CLI Study: Pelvic (Non ) Date of Exam: 03/04/14 Exam# [id number] Ordering Dr: Lorena Arana DO STUDY: ULTRAS [...] Kale Sanders MD at 17:24 EDT Tel [phone], Service support [phone], CC: Lorena Arana DO Overhead Worker: Signed 04-Mar-2014 Pelvic (Non ) Result: Comments: See Note; NOTES: [facility] Imaging Services [address] [place] [address] Ultrasound Report MR#: [id number] Acct: [id number] Name: DINAH HICKMAN Rep #: [id number] : 1945 F 68 From: Kale Sanders MD PCP: Status: REG CLI Study: Pelvic (Non ) Date of Exam: 03/04/14 Exam# [id number] Ordering Dr: Lorena Arana DO ADDENDUM by Alex Sanders MD on 03/15/14 at 1355 ADDENDUM This is an addendum report for billing. The pelvic ultrasound was performed using both the transabdominal and transvaginal techniques. Electronically Signed: Kale Sanders MD at 13:55 EDT Tel [phone], Service support , 03/15/14 1355 Date cc: Lorena Arana DO [...] Kale Sanders MD at 17:24 EDT Tel [phone], Service support [phone], CC: Lorena Arana DO Overhead Worker: Signed 12-Dec-2013 Foot min 3 Views Result: Comments: See Note; NOTES: [facility] Imaging Services [address] [place] [address] Radiology Report MR#: [id number] Acct: [id number] Name: DINAH HICKMAN Rep #: [id number] : 1945 F 68 From: Pa Elizabeth DO PCP: Lorena Arana DO Status: REG CLI Study: Foot min 3 Views Date of Exam: 12/12/13 Exam# [id number] Ordering Dr: Lorena Arana DO STUDY: X-RAY [...] Pa Elizabeth DO at 19:56 EDT Tel [phone], Service support [phone], CC: Ivonne Arana DO Overhead Worker: Signed 12-Dec-2013 Hip min 2 Views Result: Comments: See Note; NOTES: [facility] Imaging Services [address] [place] [address] Radiology Report MR#: [id number] Acct: [id number] Name: DINAH HICKMAN Rep #: [id number] : 1945 F 68 From: Pa Elizabeth DO PCP: Lorena Arana DO Status: REG CLI Study: Hip min 2 Views Date of Exam: 12/12/13 Exam# [id number] Ordering Dr: Lorena Arana DO STUDY: X [...] Pa Elizabeth DO at 19:48 EDT Tel [phone], Service support [phone], Fax CC: Lorena Arana DO Overhead Worker: Signed 12-Dec-2013 Hip min 2 Views Result: Comments: See Note; NOTES: [facility] Imaging Services [address] [facility] [address] Radiology Report MR#: [id number] Acct: [id number] Name: DINAH HICKMAN Rep #: : 1945 F 68 From: Pa Elizabeth DO PCP: Lorena Arana DO Status: REG CLI Study: Hip min 2 Views Date of Exam: 12/12/13 Exam# [id number] Ordering Dr: Lorena Arana DO STUDY: X [...] Pa Elizabeth DO at 19:47 EDT Tel [phone], Ser vice support [phone], CC: Lorena Arana DO Overhead Worker: Signed 12-Dec-2013 Knee 4 or More Views Result: Comments: See Note; NOTES: [facility] Imaging Services [address] [address] Radiology Report MR#: [id number] Acct: [id number] Name: DINAH HICKMAN Rep #: : 1945 F 68 From: Pa Elizabeth DO PCP: Lorena Arana DO Status: REG CLI Study: Knee 4 or More Views Date of Exam: 12/12/13 Exam# [id number] Ordering Dr: Lorena Arana DO MAURICIO DY: [...] Pa Elizabeth DO at 19:57 EDT Tel [phone], Service support [phone], CC: Lorena Arana DO Overhead Worker: Signed 12-Dec-2013 Knee 4 or More Views Result: Comments: See Note; NOTES: [facility] Imaging Services [address] [address] Radiology Report MR#: [id number] Acct: [id number] Name: DINAH HICKMAN Rep #: : 1945 F 68 From: Kale Sanders MD PCP: Lorena Arana DO Status: REG CLI Study: Knee 4 or More Views Date of Exam: 12/12/13 Exam# [id number] Ordering Dr: Lorena Arana DO STUDY: X-RAY [...] Kale Sanders MD at 16:13 EDT Tel [phone], Service support [phone], Fax RAD/Knee 4 or More Views IMPRESSION: Degenerative arthrosis. Small joint effusion. Electronically Signed: Kale Sanders MD at 16:13 EDT Tel [phone], Service support [phone], CC: Lorena Arana DO Overhead Worker: Signed 12-Dec-2013 Pelvis 1 or 2 Views Result: Comments: See Note; NOTES: [facility] Imaging Services [address] [place] [address] Radiology Report MR#: [id number] Acct: [id number] Name: DINAH HICKMAN Rep #: [id number] : 1945 F 68 From: Pa Elizabeth DO PCP: Lorena Arana DO Status: REG CLI Study: Pelvis 1 or 2 Views Date of Exam: 12/12/13 Exam# [id number] Ordering Dr: Lorena Arana Y: X-RAY - PELVIS REASON FOR EXAM: [...] Pa Elizabeth DO at 17:06 EDT Tel [phone], Serv ice support [phone], CC: Lorena Arana DO Overhead Worker: Signed 21-Nov-2013 Spirometry (18136) Comments: normal- but really bad technique Result: 21-Nov-2013 ELECTROCARDIOGRAM, COMPLETE (ECG) (81449) Comments: nsr no acute chg Result: [MEASUREMENTS ANALYSIS] Date of Test: 11/21/2013 10:48:43; Heart Rate: 68; IN Interval: 148; QRS: 84; QT Interval: 410; Corrected QT Interval (QTc): 424; P [place]: 17; QRS [place]: 8; T [place]: 47; Blood Pressure: 128/64 [ECG DIAGNOSTIC STATEMENTS] Date of Test: 11/21/2013 10:48:43; Summary: Sinus Rhythm WITHIN NORMAL LIMITS 17-Nov-2013 Emergency Department Summary Result: Comments: See Note; NOTES: [facility] Medical Records Department [address] [place] [address] Emergency Department Summary MR#: [id number] Acct: [id number] Name: DINAH MADISON Rep #: [id number] : 1945 68 From: Abril Loving MD PCP: Lorena Arana DO Status: [facility] ER DATE OF SERVICE: 11/08/2013 CHIEF COMPLAINT: [...] lower abdominal pain. Abril Loving MD T: [facility] JOB: [id number] 11/17/13 1537 <Electronically signed by Abril Loving MD> Date Abril Loving MD CC: Lorena Arana DO Date Dictated: 11/08/13 1608 Date Transcribed: 11/08/131607 Overhead Worker: Signed 13-Jul-2013 Foot min 3 Views Result: Comments: See Note; NOTES: [facility] Imaging Services [address] [place] [address] Radiology Report MR#: [id number] Acct: [id number] Name: DINAH HICKMAN Rep #: : 1945 F 67 From: Kale Sanders MD PCP: Lorena Arana DO Status: REG CLI Study: Foot min 3 Views Date of Exam: 07/13/13 Exam# [id number] Ordering Dr: Mirian Hatrley STUDY: X -RAY - RIGHT FOOT CLINICAL: [...] M.D. at 11:37 EST , Service support [phone], Fax CC: Mirian Hartley; Lorena Arana DO Overhead Worker: Signed Family History Unknown Family Member Name [...] smoker Vital Signs Date Test Result Details :03 Pulse 78 /min Comments: Pattern: Regular [...] kg/m2 Body Surface Area Calculated 1.74 m2 :17 Temperature 98.4 f Comments: Method: Temporal Pulse [...] Body Surface Area Calculated 1.75 m2 :25 Comments: Recheck 158/102-Clonidine 0.1mg given.156/94 at recheck [...] Area Calculated 1.74 m2 :42 Comments: hearing CamirTj Gill and had a glaucoma test Pulse [...] kg/m2 Body Surface Area Calculated 1.73 m2 : Temperature 97.2 f Comments: Method: Temporal Pulse [...] kg/m2 Body Surface Area Calculated 1.73 m2 :41 Pulse 66 /min Comments: Pattern: [...] kg/m2 Body Surface Area Calculated 1.73 m2 :29 Pulse 93 /min Comments: Pattern: Regular Respiration [...] kg/m2 Body Surface Area Calculated 1.75 m2 :17 Temperature 97 f Comments: Method: Temporal Pulse [...] kg/m2 Body Surface Area Calculated 1.75 m2 66-Nwi-332350:00 Pulse 72 /min Comments: Pattern: Regular Respiration [...] kg/m2 Body Surface Area Calculated 1.74 m2 :49 Temperature 100.5 f Comments: Method: Oral Pulse [...] Description Value Details :59 HgA1C , Office (47262) HgA1C , Office 5.9 % (Normal) Range: 4.6 - 7.1 :59 Blood Glucose , Office (63886) Blood Glucose , Office 99 (Normal) :14 OVA & PARASITE DIR SMEAR Comments: PATIENT NOT FASTINGPERFORMED BY: [facility] Umhijm5360 [facility] [id number] (08209) Result 1 NOCP (Normal) Comments: No ova, cysts, or parasites seen. Ova + Parasite Exam Final report (Normal) Comments: These results were obtained using wet preparation(s) and trichromestained smear. This test does not include testing for Cryptosporidiumparvum, Cyclospora, or Microsporidia. :14 OCCULT BLOOD FECES SCREEN Comments: PATIENT NOT FASTINGPERFORMED BY: [facility] [id number] (37773) Occult Blood, Fecal, IA Negative (Normal) :14 LEUKOCYTE COUNT, FECAL (04950) Comments: PATIENT NOT FASTINGPERFORMED BY: [place] 9289370 [facility] [id number] Result 1 NWBC (Normal) Comments: No white blood cells seen. White Blood Cells (WBC), Final report (Normal) Stool :12 C-DIFFICILE, STOOL (16592) Comments: PATIENT NOT FASTINGPERFORMED BY: [facility] [id number] Information: SRC:ST C difficile Toxins A+B, EIA Negative (Normal) :14 ENRIQUE CULTURE-STOOL (68675) Comments: PATIENT NOT FASTINGPERFORMED BY: [facility] [id number] E coli Shiga Toxin EIA Negative (Normal) Result 1 NCI (Normal) Comments: No Campylobacter species isolated. Campylobacter Culture Final report (Normal) Result 1 NSS (Normal) Comments: No Salmonella or Shigella recovered. Salmonella/Shigella Screen Final report (Normal) 70-Ved-131622:03 T4, FREE (THYROXINE) Comments: PATIENT WAS FASTINGPERFORMED BY: [employer] [id number] BY: [facility]6370 [facility] [id number] (20436) T4,Free(Direct) 1.28 ng/dL (Normal) Range: 0.82-1.77 07-Jho-375780:03 T3, FREE (TRIDOTHYRONINE) Comments: PATIENT WAS FASTINGPERFORMED BY: [employer] [id number] BY: [facility]genKind[facility] at MorrisAbybfw8471 [facility] [id number] (93764) Triiodothyronine (T3), Free 3.2 pg/mL (Normal) Range: 2.0-4.4 07-Bch-054338:03 TSH (THYROID STIMULATING Comments: PATIENT WAS FASTINGPERFORMED BY: [place] 019727 [facility] [id number] BY: [place] 8457270 [facility] [id number] HORMONE) (06726) TSH 1.420 {uIU/mL} (Normal) Range: 0.450-4.500 02-Kqv-654994:03 LIPOPROTEIN, BLD, BY NMR Comments: PATIENT WAS FASTINGPERFORMED BY: [employer] [address] [id number] BY: [employer] Lpbdui7483 [facility] [id number] (96319) LP-IR Score 74 (Abnormal) Comments: INSULIN RESISTANCE MARKER <--Insulin Sensitive Insulin Resistant--> Percentile in Reference PopulationInsulin Resistance ScoreLP-IR Score Low 25th 50th 75th High <27 27 45 63 >63LP-IR Score is inaccurate if patient is non-fasting. .The LP-IR score is a laboratory developed i [facility] that has beenassociated with insulin [...] were developed and their performance characteristicsdetermined by [employer]. These assays have not been cleared by [...] 1600 - 2000 Very High > 2000 55-Omx-232018:03 MICROALBUMIN: CREATININE Comments: PATIENT WAS FASTINGPERFORMED BY: [facility] [address] [id number] BY: [facility] Mwtudy9008 [facility] [id number] RATIO (23546) AND (69438) Alb/Creat Ratio 12.4 {mg/g_creat} (Normal) Range: 0.0-30.0 Comments: Normal: 0.0 - 30.0 Albuminuria: 31.0 - 300.0 Clinical albuminuria: >300.0 Albumin, Urine 6.2 ug/mL (Normal) Creatinine, Urine 49.9 mg/dL (Normal) 47-Don-10805:02 HgA1C , Office (25000) HgA1C , Office 6.1 % (Normal) Range: 4.6 - 7.1 51-Voy-50298:10 Microscopic Examination Comments: PATIENT WAS FASTINGPERFORMED BY: [employer] [id number] BY: VideregenCarlsbad Medical CenterGegfbd7354 Junior RoadDublin [place] [id number] Bacteria Few (Normal) Mucus Threads Present (Normal) Epithelial Cells (non renal) 0-10 {/hpf} (Normal) Range: 0 - 10 RBC 0-2 {/hpf} (Normal) Range: 0 - 2 WBC 6-10 {/hpf} (Abnormal) Range: 0 - 5 :10 T4, FREE (THYROXINE) Comments: PATIENT WAS FASTINGPERFORMED BY: [employer] [id number] BY: VideregenCarlsbad Medical CenterUrcxga6001 Junior RoadDublin [place] [id number] (78486) T4,Free(Direct) 1.28 ng/dL (Normal) Range: 0.82-1.77 23-Wgb-87800:10 T3, FREE (TRIDOTHYRONINE) Comments: PATIENT WAS FASTINGPERFORMED BY: [employer] [id number] BY: VideregenCarlsbad Medical CenterCdrdmq4010 Junior RoadDublin [place] [id number] (52850) Triiodothyronine (T3), Free 4.0 pg/mL (Normal) Range: 2.0-4.4 27-Taa-68068:10 CALCIFIDIOL (15194) VIT D Comments: PATIENT WAS FASTINGPERFORMED BY: [employer] [id number] BY: [employer] Hlawxk3650 [address] [facility] HospitalD[place] [id number] 25 Vitamin D, 25-Hydroxy 37.9 ng/mL (Normal) Range: 30.0-100.0 Comments: Vitamin D deficiency has been defined by the Evans ofMedicine and an Endocrine Society practice guideline as alevel of serum 25-OH vitamin D less than 20 ng/mL (1,2).The Endocrine Society went on to further define vitamin Dinsufficiency as a level between 21 and 29 ng/mL (2).1. IOM (Evans of Medicine). 2010. Dietary reference intakes for calcium and D. [place]: The National Academies Press.2. Deepak MF, Angelito ARANDA, Adan YEBOAH, et al. Evaluation, treatment, and prevention of vitamin D deficiency: an Endocrine Society clinical practice guideline. JCEM. 2010; 96(7):1911-30. :10 TSH (99547) Comments: PATIENT WAS FASTINGPERFORMED BY: [employer] Technologieston1447 [facility] [id number] BY: [employer]yx Groupox [facility] [place] [id number] TSH 2.010 {uIU/mL} (Normal) Range: 0.450-4.500 02-Pef-54448:10 URINALYSIS, W/ MICRO Comments: PATIENT WAS FASTINGPERFORMED BY: [employer] Technologieston1447 [facility] [id number] BY: [place] [id number] (21223) Microscopic Examination See below: (Normal) Comments: Microscopic was indicated and was performed. Nitrite, Urine Negative (Normal) Urobilinogen,Semi-Qn 0.2 mg/dL (Normal) Range: 0.2-1.0 Bilirubin Negative (Normal) Occult Blood Negative (Normal) Ketones Negative (Normal) Glucose Negative (Normal) Protein Negative (Normal) WBC Esterase 1+ (Abnormal) Appearance Clear (Normal) Urine-Color Yellow (Normal) pH 5.0 (Normal) Range: 5.0-7.5 Specific [facility] 1.012 (Normal) Range: 1.005-1.030 :10 MICROALBUMIN: CREATININE Comments: PATIENT WAS FASTINGPERFORMED BY: [employer] [id number] BY: ClearSaleing70 [facility] Hospital[facility] [place] [id number] RATIO (63731) AND (82391) Alb/Creat Ratio 8.5 {mg/g_creat} (Normal) Range: 0.0-30.0 Albumin, Urine 4.3 ug/mL (Normal) Creatinine, Urine 50.7 mg/dL (Normal) 28-Acz-54799:10 METABOLIC PANEL, Comments: PATIENT WAS FASTINGPERFORMED BY: LabCo[address] [id number] BY: LabM[facility]6370 [facility] [id number] [facility] (68609) ALT (SGPT) 49 [iU]/L (Abnormal) Range: 0-32 [...] 8-27 Glucose 99 mg/dL (Normal) Range: 65-99 29-Plz-01387:10 LIPOPROTEIN, BLD, BY NMR Comments: PATIENT WAS FASTINGPERFORMED BY: Allakos[address] [id number] BY: [facility] Pmyvop2161 [facility] [id number] (53093) LP-IR Score 61 (Abnormal) Comments: INSULIN RESISTANCE MARKER <--Insulin Sensitive Insulin Resistant--> Percentile in Reference PopulationInsulin Resistance ScoreLP-IR Score Low 25th 50th 75th High <27 27 45 63 >63LP-IR Score is inaccurate if patient is non-fasting. .The LP-IR score is a laboratory developed i [facility] that has beenassociated with insulin [...] were developed and their performance characteristicsdetermined by [employer]. These assays have not been cleared by [...] 1600 - 2000 Very High > 2000 30-Lfb-10387:10 CBC W/AUTO DIFF WBC Comments: PATIENT WAS FASTINGPERFORMED BY: BN [facility] Ywarkfvbjv9311 [facility] [id number] BY: CB [facility] Wxaxuu9708 [facility] [id number] (57171) Immature Grans (Abs) 0.0 {x10E3/uL} (Normal) Range: [...] (Normal) Range: 3.4-10.8 :01 HgA1C , Office (29349) HgA1C , Office 5.9 % (Normal) Range: 4.6 - 7.1 :01 Blood Glucose , Office (10310) Blood Glucose , Office 105 (Normal) 3-Roy-412544:27 Urinalysis, Office (25416) UA - LEUKOCYTE ESTERASE Negative (Normal) UA - NITRITE Negative (Normal) URINE UROBILINGN EDITH TIMED Normal mg/dL (Normal) UA - PROTEIN Negative mg/dL (Normal) UA - PH 6 (Abnormal) UA - SPECIFIC GRAVITY 1.020 (Normal) UA - KETONES Negative mg/dL (Normal) UA - BILIRUBIN Negative (Normal) UA - GLUCOSE Negative (Normal) 3-Won-050668:53 URINE ENRIQUE CULTURE-EDITH COL Comments: PERFORMED BY: [facility]6370 [facility] [id number] Information: SRC:UC COUNT (59101) Result 2 MUG (Normal) Comments: Mixed urogenital [...] cephalosporins, clindamycin, andtrimethoprim-sulfamethoxazole are not effective clinically.(CLSI, P829-X03, 2016) Urine Final report (Abnormal) Culture,Comprehensive 65-Yjw-18329:29 HgA1C , Office (38939) HgA1C , Office 6.0 % (Normal) Range: 4.6 - 7.1 67-Ntf-10178:29 Blood Glucose , Office (32282) Blood Glucose , Office 130 (Normal) 03-Sii-159621:04 Microscopic Examination Comments: PATIENT WAS FASTINGPERFORMED BY: [employer]re[employer] [facility] [id number] Bacteria Few (Normal) Mucus Threads Present (Normal) Epithelial Cells (non renal) >10 {/hpf} (Abnormal) Range: 0 - 10 RBC None seen {/hpf} (Normal) Range: 0 - 2 WBC 0-5 {/hpf} (Normal) Range: 0 - 5 71-Klw-682221:04 URINALYSIS, W/ MICRO (54479) Comments: PATIENT WAS FASTINGPERFORMED BY: [employer] [facility] [id number] Microscopic Examination See below: (Normal) Comments: Microscopic was indicated and was performed. Microscopic Examination MICRON (Normal) Comments: Microscopic follows if indicated. Nitrite, Urine Negative (Normal) Urobilinogen,Semi-Qn 0.2 mg/dL (Normal) Range: 0.2-1.0 Bilirubin Negative (Normal) Occult Blood Negative (Normal) Ketones Negative (Normal) Glucose Negative (Normal) Protein Negative (Normal) WBC Esterase Negative (Normal) Appearance Clear (Normal) Urine-Color Yellow (Normal) pH 5.5 (Normal) Range: 5.0-7.5 Specific [facility] 1.013 (Normal) Range: 1.005-1.030 52-Sdp-949533:04 MICROALBUMIN: CREATININE RATIO Comments: PATIENT WAS FASTINGPERFORMED BY: [employer] [facility] [id number] (08406) AND (42518) Alb/Creat Ratio <8.8 {mg/g_creat} (Normal) Range: 0.0-30.0 Albumin, Urine <3.0 ug/mL (Normal) Creatinine, Urine 33.9 mg/dL (Normal) 76-Pnx-784662:04 CBC WITH MANUAL DIFF (99243) Comments: PATIENT WAS FASTINGPERFORMED BY: [employer] [facility] [id number] Immature Grans (Abs) 0.0 {x10E3/uL} (Normal) Range: [...] 3.77-5.28 WBC 7.6 {x10E3/uL} (Normal) Range: 3.4-10.8 83-Rbv-917510:04 Metabolic Panel, Comprehensive Comments: PATIENT WAS FASTINGPERFORMED BY: LabCoKindred Hospital at MorrisHisyfd3562 [facility] [id number] (48250) ALT (SGPT) 37 [iU]/L (Abnormal) Range: 0-32 [...] Glucose, Serum 94 mg/dL (Normal) Range: 65-99 03-Qpv-715441:04 HEPATIC FUNCTION PANEL Comments: PATIENT WAS FASTINGPERFORMED BY: [employer] [facility] [id number] (09118) Bilirubin, Direct 0.19 mg/dL (Normal) Range: 0.00-0.40 70-Cgr-886545:04 LIPID PANEL (64552) Comments: PATIENT WAS FASTINGPERFORMED BY: [employer]onyx [facility] [id number] LDL/HDL Ratio 2.0 {ratio_units} (Normal) Range: 0.0-3.2 Comments: LDL/HDL Ratio Men Women 1/2 Avg.Risk 1.0 1.5 Av g.Risk 3.6 3.2 2X Avg.Risk 6.2 5.0 3X Avg.Risk 8.0 6.1 LDL Cholesterol Calc 81 mg/dL (Normal) Range: 0-99 VLDL Cholesterol Abran 41 mg/dL (Abnormal) Range: 5-40 HDL Cholesterol 40 mg/dL (Normal) Triglycerides 206 mg/dL (Abnormal) Range: 0-149 Cholesterol, Total 162 mg/dL (Normal) Range: 100-199 00-Jnp-396776:04 CALCIFIDIOL (39526) VIT D 25 Comments: PATIENT WAS FASTINGPERFORMED BY: LabCoKindred Hospital at MorrisCrsrko4017 [facility] [id number] Vitamin D, 25-Hydroxy 55.5 ng/mL (Normal) Range: 30.0-100.0 Comments: Vitamin D deficiency has been defined by the Evans ofMedicine and an Endocrine Society practice guideline as alevel of serum 25-OH vitamin D less than 20 ng/mL (1,2).The Endocrine Society went on to further define vitamin Dinsufficiency as a level between 21 and 29 ng/mL (2).1. IOM (Evans of Medicine). 2010. Dietary reference intakes for calcium and D. [place]: The National Academies Press.2. Deepak MF, Angelito ARANDA, Adan YEBOAH, et al. Evaluation, treatment, and prevention of vitamin D deficiency: an Endocrine Society clinical practice guideline. JCEM. 2010; 96(7):1911-30. :57 HgA1C , Office (56513) HgA1C , Office 6.0 % (Normal) Range: 4.6 - 7.1 :57 Blood Glucose , Office (52849) Blood Glucose , Office 101 (Normal) 55-Uqd-923879:00 Basic Metabolic Profile (BMP) Comments: 'TROP' Serial specimen #1, #2, #3, or #4: 1[facility] [address] [place]Was[place], [place], [address] GAP 13 (Normal) Range: 5-15 CO2 23.0 [...] 126 mg/dLsuggests DIABETES MELLITUS per A.D.A. criteria. 86-Hrt-971359:00 BNP,B-Type NATRIURETIC PEPTIDE Comments: [facility] [address] [place], [place], [address] B-TYPE ROSIE PEP 14.9 pg/mL (Normal) Range: 0-100 93-Lit-501185:00 CBC W/Diff, Automated Comments: [facility] [address] [place], [address] Absolute Lymph 2.91 {X10_3/ul} (Normal) [...] 4.2-5.4 WBC 12.7 K/mm3 (Abnormal) Range: 4.4-11.0 65-Nwm-287936:00 Troponin-I Comments: 'TROP' Serial specimen #1, #2, #3, or #4: [address] [place] [address] [address] [place], [place], [id number] TROPONIN-I < 0.02 ng/mL (Normal) Comments: TROPONIN-I EXPECTED VALUES <0.05 NEGATIVE 0.06 - 0.59 AT RISK OF AR > OR = 0.60 SUGGEST AR 4-Llr-697535:07 Microscopic Examination Comments: PATIENT WAS FASTINGPERFORMED BY: [facility]Nov[facility] [id number] Bacteria None seen (Normal) Mucus Threads Present (Normal) Epithelial Cells (non renal) 0-10 {/hpf} (Normal) Range: 0 - 10 RBC None seen {/hpf} (Normal) Range: 0 - 2 WBC 0-5 {/hpf} (Normal) Range: 0 - 5 79-Fpx-475389:31 URINE ENRIQUE CULTURE-EDITH COL Comments: PATIENT NOT FASTINGPERFORMED BY: [employer] [facility] [id number] Information: SRC:UC COUNT (27505) Result 1 MUG (Normal) Comments: Mixed urogenital flora2,000 Colonies/mL Urine Culture,Comprehensive Final report (Normal) 72-Erd-631462:43 Urinalysis, Office (98397) UA - LEUKOCYTE ESTERASE Negative (Normal) UA - NITRITE Negative (Normal) URINE UROBILINGN EDITH TIMED Normal mg/dL (Normal) UA - PROTEIN Negative mg/dL (Normal) UA - PH 5 (Abnormal) UA - BLOOD non-hemolyzed trace (Normal) UA - SPECIFIC GRAVITY 1.020 (Normal) UA - KETONES Negative mg/dL (Normal) UA - BILIRUBIN Negative (Normal) UA - GLUCOSE Negative (Normal) :16 HgA1C , Office (05199) HgA1C , Office 5.8 % (Normal) Range: 4.6 - 7.1 :16 Blood Glucose , Office (80157) Blood Glucose , Office 104 (Normal) :07 CALCIFEDIOL (47604) Comments: PATIENT WAS FASTINGPERFORMED BY: [employer] Ddvrvm0958 [facility] RoadSelect [facility] [place] [id number] Vitamin D, 25-Hydroxy 66.5 ng/mL (Normal) Range: 30.0-100.0 Comments: Vitamin D deficiency has been defined by the Evans ofMedicine and an Endocrine Society practice guideline as alevel of serum 25-OH vitamin D less than 20 ng/mL (1,2).The Endocrine Society went on to further define vitamin Dinsufficiency as a level between 21 and 29 ng/mL (2).1. IOM (Evans of Medicine). 2010. Dietary reference intakes for calcium and D. [place]: The National Academies Press.2. Deepak MF, Angelito ARANDA, Adan YEBOAH, et al. Evaluation, treatment, and prevention of vitamin D deficiency: an Endocrine Society clinical practice guideline. JCEM. 2010; 96(7):1911-30. :07 TSH (39840) Comments: PATIENT WAS FASTINGPERFORMED BY: [employer] Cvjxgu9456 Junior [facility] HospitalDublin [place] [id number] TSH 1.920 {uIU/mL} (Normal) Range: 0.450-4.500 :07 URINALYSIS, W/ MICRO (65272) Comments: PATIENT WAS FASTINGPERFORMED BY: [employer] Jwmfpm8543 [facility] [place] [id number] Microscopic Examination See below: (Normal) Comments: Microscopic was indicated and was performed. Microscopic Examination MICRON (Normal) Comments: Microscopic follows if indicated. Nitrite, Urine Negative (Normal) Urobilinogen,Semi-Qn 0.2 mg/dL (Normal) Range: 0.2-1.0 Bilirubin Negative (Normal) Occult Blood Negative (Normal) Ketones Negative (Normal) Glucose Negative (Normal) Protein Negative (Normal) WBC Esterase Negative (Normal) Appearance Clear (Normal) Urine-Color Yellow (Normal) pH 5.5 (Normal) Range: 5.0-7.5 Specific [facility] 1.008 (Normal) Range: 1.005-1.030 :07 MICROALBUMIN: CREATININE RATIO Comments: PATIENT WAS FASTINGPERFORMED BY: [employer] Lwivbv1577 [facility] [id number] (11852) AND (81260) Microalb/Creat Ratio <13.7 {mg/g_creat} (Normal) Range: 0.0-30.0 Microalbumin, Urine <3.0 ug/mL (Normal) Creatinine, Urine 21.9 mg/dL (Normal) : METABOLIC PANEL, COMPREHENSIVE Comments: PATIENT WAS FASTINGPERFORMED BY: [employer] Esluuy1909 [facility] [id number] (36109) ALT (SGPT) 32 [iU]/L (Normal) Range: 0-32 [...] Glucose, Serum 98 mg/dL (Normal) Range: 65-99 1-Dut-824368:07 LIPID PANEL (77332) Comments: PATIENT WAS FASTINGPERFORMED BY: VideregenKindred Hospital at MorrisFdabxp3281 [facility] [id number] LDL/HDL Ratio 1.9 {ratio_units} (Normal) Range: 0.0-3.2 Comments: LDL/HDL Ratio Men Women 1/2 Avg.Risk 1.0 1.5 Av g.Risk 3.6 3.2 2X Avg.Risk 6.2 5.0 3X Avg.Risk 8.0 6.1 LDL Cholesterol Calc 83 mg/dL (Normal) Range: 0-99 VLDL Cholesterol Abran 58 mg/dL (Abnormal) Range: 5-40 HDL Cholesterol 44 mg/dL (Normal) Triglycerides 289 mg/dL (Abnormal) Range: 0-149 Cholesterol, Total 185 mg/dL (Normal) Range: 100-199 5-Ywi-356286:07 CBC with auto diff (24688) Comments: PATIENT WAS FASTINGPERFORMED BY: LabTecturaKindred Hospital at MorrisNguqld0528 [facility] [id number] Immature Grans (Abs) 0.0 {x10E3/uL} (Normal) Range: [...] 3.77-5.28 WBC 8.1 {x10E3/uL} (Normal) Range: 3.4-10.8 :19 CREATININE FINGERSTICK Comments: [facility] LaboratoryPoint of [place] [address] [place], [place] [address] EGFR WB Test not performed mL/min (Normal) CREATININE WB < 0.6 mg/dL (Normal) Range: 0.55-1.02 :49 SED RATE ERYTHROCYTE (60940) Comments: PATIENT NOT FASTINGPERFORMED BY: LabCo Ekgxzp0998 [facility] [id number] Sedimentation Rate-Westergren 17 mm/h (Normal) Range: 0-40 :49 C-REACTIVE PROTEIN (73140) Comments: PATIENT NOT FASTINGPERFORMED BY: [facility] Lxxccc1439 [facility] [id number] C-Reactive Protein, Quant 1.5 mg/L (Normal) Range: 0.0-4.9 :49 CBC W/AUTO DIFF WBC (14389) Comments: PATIENT NOT FASTINGPERFORMED BY: [employer] [facility] Aoyiym2391 [facility] [id number] Immature Grans (Abs) 0.0 {x10E3/uL} (Normal) Range: [...] WBC 7.5 {x10E3/uL} (Normal) Range: 3.4-10.8 :49 RQSPG-VBKMICIMYKN-TUAPF (65478) Comments: PATIENT NOT FASTINGPERFORMED BY: LabCoKindred Hospital at MorrisJelbhp8499 [facility] [id number] AFP, Serum, Tumor Marker 1.0 ng/mL (Normal) Range: 0.0-8.3 Comments: Laury ECLIA methodology :05 HgA1C , Office (30211) HgA1C , Office 5.8 % (Normal) Range: 4.6 - 7.1 :05 Blood Glucose , Office (67565) Blood Glucose , Office 104 (Normal) :36 HgA1C , Office (77904) HgA1C , Office 5.6 % (Normal) Range: 4.6 - 7.1 :35 Blood Glucose , Office (47542) Blood Glucose , Office 94 (Normal) 3-Cqy-449996:02 Microscopic Examination Comments: PATIENT WAS FASTINGPERFORMED BY: [facility] Dwaicw7859 [facility] [id number] Bacteria Moderate (Abnormal) Mucus Threads Present (Normal) Epithelial Cells (non renal) 0-10 {/hpf} (Normal) Range: 0 - 10 RBC None seen {/hpf} (Normal) Range: 0 - 2 WBC 0-5 {/hpf} (Normal) Range: 0 - 5 5-All-261234:02 CALCIFIDIOL (23992) VIT D 25 Comments: PATIENT WAS FASTINGPERFORMED BY: [facility] Fzssgn8477 [facility] [id number] Vitamin D, 25-Hydroxy 102.0 ng/mL (Abnormal) Range: 30.0-100.0 Comments: Vitamin D deficiency has been defined by the Evans ofMedicine and an Endocrine Society practice guideline as alevel of serum 25-OH vitamin D less than 20 ng/mL (1,2).The Endocrine Society went on to further define vitamin Dinsufficiency as a level between 21 and 29 ng/mL (2).1. IOM (Evans of Medicine). 2010. Dietary reference intakes for calcium and D. [place]: The National Academies Press.2. Deepak MF, Angelito [place], Adan YEBOAH, et al. Evaluation, treatment, and prevention of vitamin D deficiency: an Endocrine Society clinical practice guideline. JCEM. 2010; 96(7):1911-30. :02 LIPID PANEL (19829) Comments: PATIENT WAS FASTINGPERFORMED BY: [facility] Zrdxfr1929 [facility] [id number] LDL/HDL Ratio 1.9 {ratio_units} (Normal) Range: 0.0-3.2 Comments: LDL/HDL Ratio Men Women 1/2 Avg.Risk 1.0 1.5 Av g.Risk 3.6 3.2 2X Avg.Risk 6.2 5.0 3X Avg.Risk 8.0 6.1 LDL Cholesterol Calc 74 mg/dL (Normal) Range: 0-99 VLDL Cholesterol Abran 36 mg/dL (Normal) Range: 5-40 HDL Cholesterol 39 mg/dL (Abnormal) Triglycerides 181 mg/dL (Abnormal) Range: 0-149 Cholesterol, Total 149 mg/dL (Normal) Range: 100-199 :02 TSH (64304) Comments: PATIENT WAS FASTINGPERFORMED BY: [facility]6370 [facility] [id number] TSH 1.080 {uIU/mL} (Normal) Range: 0.450-4.500 9-Zvc-586912:02 URINALYSIS, W/ MICRO (90027) Comments: PATIENT WAS FASTINGPERFORMED BY: [facility]6370 [facility] [id number] Microscopic Examination See below: (Normal) Comments: Microscopic was indicated and was performed. Microscopic Examination MICRON (Normal) Comments: Microscopic follows if indicated. Nitrite, Urine Negative (Normal) Urobilinogen,Semi-Qn 0.2 mg/dL (Normal) Range: 0.2-1.0 Bilirubin Negative (Normal) Occult Blood Negative (Normal) Ketones Negative (Normal) Glucose Negative (Normal) Protein Negative (Normal) WBC Esterase Negative (Normal) Appearance Clear (Normal) Urine-Color Yellow (Normal) pH 6.0 (Normal) Range: 5.0-7.5 Specific [facility] 1.015 (Normal) Range: 1.005-1.030 :02 MICROALBUMIN: CREATININE RATIO Comments: PATIENT WAS FASTINGPERFORMED BY: [facility]osM[facility] Hospital6370 [facility] [id number] (16649) AND (44951) Microalb/Creat Ratio <6.8 {mg/g_creat} (Normal) Range: 0.0-30.0 Microalbumin, Urine <3.0 ug/mL (Normal) Creatinine, Urine 43.9 mg/dL (Normal) :02 METABOLIC PANEL, COMPREHENSIVE Comments: PATIENT WAS FASTINGPERFORMED BY: [facility]6370 [facility] [id number] (96112) ALT (SGPT) 28 [iU]/L (Normal) Range: 0-32 [...] Glucose, Serum 94 mg/dL (Normal) Range: 65-99 3-Nay-222173:02 CBC W/AUTO DIFF WBC Comments: PATIENT WAS FASTINGPERFORMED BY: JENNA [facility] Lrfnoj1095 [facility] [id number] Information: [id number] (97729) Immature Grans (Abs) 0.0 {x10E3/uL} (Normal) Range: [...] (Normal) Range: 3.4-10.8 :31 HgA1C , Office (47876) HgA1C , Office 5.7 % (Normal) Range: 4.6 - 7.1 :31 Blood Glucose , Office (40697) Blood Glucose , Office 93 (Normal) :27 Microscopic Examination Comments: PATIENT WAS FASTINGPERFORMED BY: LabCoKindred Hospital at MorrisIbkneg8895 [facility] [id number] Bacteria Few (Normal) Mucus Threads Present (Normal) Epithelial Cells (non renal) 0-10 {/hpf} (Normal) Range: 0 - 10 RBC 0-2 {/hpf} (Normal) Range: 0 - 2 WBC 0-5 {/hpf} (Normal) Range: 0 - 5 :56 Urinalysis, Office (64528) UA - LEUKOCYTE ESTERASE Negative (Normal) UA [...] ENRIQUE CULTURE-IDENTIFICATN Comments: PATIENT NOT FASTINGPERFORMED BY: [employer]Saleing70 [facility] PropaneNov[facility] [id number] Information: SRC:UC (37272) Result 1 MUG (Normal) Comments: Mixed urogenital flora10,000-25,000 colony forming units per mL Urine Final report (Normal) Culture,Comprehensive :27 [id number] (30714) Comments: PATIENT WAS FASTINGPERFORMED BY: [employer]Leaf6370 [facility] PropaneNov[facility] [id number] AFP, Serum, Tumor Marker 2.4 ng/mL (Normal) Range: 0.0-8.3 Comments: Laury ECLIA methodology :27 TSH (17474) Comments: PATIENT WAS FASTINGPERFORMED BY: [employer]6370 [place] [id number] TSH 1.230 {uIU/mL} (Normal) Range: 0.450-4.500 :27 URINALYSIS, W/ MICRO (58927) Comments: PATIENT WAS FASTINGPERFORMED BY: [employer]Leaf6370 [facility] [id number] Microscopic Examination See below: (Normal) Comments: Microscopic was indicated and was performed. Microscopic Examination MICRON (Normal) Comments: Microscopic follows if indicated. Nitrite, Urine Negative (Normal) Urobilinogen,Semi-Qn 0.2 mg/dL (Normal) Range: 0.2-1.0 Bilirubin Negative (Normal) Occult Blood Negative (Normal) Ketones Negative (Normal) Glucose Negative (Normal) Protein Negative (Normal) WBC Esterase Negative (Normal) Appearance Clear (Normal) Urine-Color Yellow (Normal) pH 7.0 (Normal) Range: 5.0-7.5 Specific [facility] 1.008 (Normal) Range: 1.005-1.030 :27 MICROALBUMIN: CREATININE RATIO Comments: PATIENT WAS FASTINGPERFORMED BY: [employer] Ywuzll7756 [facility] [id number] (36094) AND (08238) Microalb/Creat Ratio <13.0 {mg/g_creat} (Normal) Range: 0.0-30.0 Microalbumin, Urine <3.0 ug/mL (Normal) Creatinine, Urine 23.0 mg/dL (Normal) : METABOLIC PANEL, COMPREHENSIVE Comments: PATIENT WAS FASTINGPERFORMED BY: [employer]6370 [facility] [id number] (30831) ALT (SGPT) 39 [iU]/L (Abnormal) Range: 0-32 [...] Glucose, Serum 102 mg/dL (Abnormal) Range: 65-99 :27 LIPID PANEL (71227) Comments: PATIENT WAS FASTINGPERFORMED BY: VideregenKindred Hospital at MorrisQftjij4855 [facility] [id number] LDL/HDL Ratio 2.2 {ratio_units} (Normal) Range: 0.0-3.2 [...] Range: 100-199 :27 CBC W/AUTO DIFF WBC (53424) Comments: PATIENT WAS FASTINGPERFORMED BY: VideregenKindred Hospital at MorrisUzwmkr3314 [facility] [id number] Immature Grans (Abs) 0.0 {x10E3/uL} (Normal) Range: [...] 3.77-5.28 WBC 6.2 {x10E3/uL} (Normal) Range: 3.4-10.8 34-Pxn-167784:22 URINE ENRIQUE CULTURE-IDENTIFICATN Comments: PATIENT NOT FASTINGPERFORMED BY: [facility]6370 [facility] [id number] Information: [id number] (39291) Antimicrobial MIHEAD (Normal) Comments: S = Susceptible; [...] primarily for treating urinary tract infections. (CLSI, W516-L37,2009) Urine Culture,Comprehensive Final report (Abnormal) 10-Vlb-141531:28 Urinalysis, Office (36410) UA - LEUKOCYTE ESTERASE Negative (Normal) UA - NITRITE Negative (Normal) URINE UROBILINGN EDITH TIMED Normal mg/dL (Normal) UA - PROTEIN Negative mg/dL (Normal) UA - PH 5 (Abnormal) UA - BLOOD Negative (Normal) UA - SPECIFIC GRAVITY 1.010 (Normal) UA - KETONES Negative mg/dL (Normal) UA - BILIRUBIN Negative (Normal) UA - GLUCOSE Negative (Normal) 6-Qfe-531533:00 Basic Metabolic Profile (BMP) Comments: [facility] [address]zg[address] [place], [place], [id number] GAP 7 (Normal) Range: 5-15 CO2 26.0 [...] 7-18 GLU 93 mg/dL (Normal) Range: 70-110 6-Vgf-319532:00 CBC W/Diff, Automated Comments: [facility] Smtvvdgdhg[address] [place], [place], [id number] Absolute Lymph 2.60 {X10_3/ul} (Normal) Range: 0.83-4.51 [...] 4.2-5.4 WBC 7.7 K/mm3 (Normal) Range: 4.4-11.0 8-Xpn-415264:16 CBC, PLATELETS & AUT DIFF Comments: PATIENT NOT FASTINGPERFORMED BY: [facility] Xscfmp7604 [facility] [id number] Information: [id number] (38083) Immature Grans (Abs) 0.0 {x10E3/uL} (Normal) Range: [...] 3.77-5.28 WBC 7.4 {x10E3/uL} (Normal) Range: 3.4-10.8 6-Mmz-066179:16 HELICOBACTER PYLORI ANTIBODY Comments: PATIENT NOT FASTINGPERFORMED BY: AllakosCoKindred Hospital at MorrisObfffp9556 [facility] [id number] (33785) H. pylori, IgG Abs <0.9 U/mL (Normal) Range: 0.0-0.8 Comments: Negative <0.9 Indeterminate 0.9 - 1.0 Positive >1.0 5-Yox-074525:06 Urinalysis, Office (78328) UA - LEUKOCYTE ESTERASE Negative (Normal) UA - NITRITE Negative (Normal) URINE UROBILINGN EDITH TIMED Normal mg/dL (Normal) UA - PROTEIN Negative mg/dL (Normal) UA - PH 5.0 (Normal) UA - BLOOD non-hemolyzed trace (Normal) UA - SPECIFIC GRAVITY 1.005 (Normal) UA - KETONES Negative mg/dL (Normal) UA - BILIRUBIN Negative (Normal) UA - GLUCOSE Negative (Normal) 74-Fxb-178265:15 CBC, Platelets & Auto Comments: PATIENT NOT FASTINGPERFORMED BY: LabCoKindred Hospital at MorrisKylraj3716 [facility] [id number] Information: [id number] Diff (75148) Immature Grans (Abs) 0.0 {x10E3/uL} (Normal) Range: [...] {x10E3/uL} (Normal) Range: 3.4-10.8 :54 Sputum Culture (27633) Comments: PATIENT NOT FASTINGPERFORMED BY: [employer] Igfmyp6712 [facility] [id number] Information: [id number] Result 1 RRF (Normal) Comments: Routine respiratory corina Lower Respiratory Culture Final report (Normal) 1-Ejt-976766:10 CBC With Differential/Platelet Comments: PATIENT WAS FASTINGPERFORMED BY: [employer] Vlqlgs0406 [facility] [id number] Immature Grans (Abs) 0.0 {x10E3/uL} (Normal) Range: [...] 3.77-5.28 WBC 11.9 {x10E3/uL} (Abnormal) Range: 3.4-10.8 2-Osl-251176:10 Comp. Metabolic Panel (14) Comments: PATIENT WAS FASTINGPERFORMED BY: LabCoKindred Hospital at MorrisHpfwvr9347 [facility] [id number] ALT (SGPT) 27 [iU]/L (Normal) Range: 0-32 [...] Glucose, Serum 83 mg/dL (Normal) Range: 65-99 0-Vgk-866179:10 Lipid Panel With LDL/HDL Comments: PATIENT WAS FASTINGPERFORMED BY: [facility] [id number] Ratio LDL/HDL Ratio 1.5 {ratio_units} (Normal) Range: [...] Cholesterol, Total 174 mg/dL (Normal) Range: 100-199 5-Mug-671368:10 Microalb/Creat Ratio, Randm Ur Comments: PATIENT WAS FASTINGPERFORMED BY: [facility]Critical [facility] [id number] Microalb/Creat Ratio 15.6 {mg/g_creat} Range: 0.0-30.0 (Normal) Microalbumin, Urine 9.2 ug/mL (Normal) Creatinine, Urine 58.8 mg/dL (Normal) TSH 1.290 {uIU/mL} Comments: PATIENT WAS FASTINGPERFORMED BY: [facility] Cljqnd1404 [facility] [place] [id number] 2:10 (Normal) Range: 0.450-4.500 Vitamin D, 25-Hydroxy 62.2 ng/mL (Normal) Comments: PATIENT WAS FASTINGPERFORMED BY: [facility] Wgmiys4910 [facility] [place] [id number] 2:10 Range: 30.0-100.0 Comments: Vitamin D deficiency has been defined by the Evans ofMedicine and an Endocrine Society practice guideline as alevel of serum 25-OH vitamin D less than 20 ng/mL (1,2).The Endocrine Society went on to further define vitamin Dinsufficiency as a level between 21 and 29 ng/mL (2).1. IOM (Evans of Medicine). 2010. Dietary reference intakes for calcium and D. [place]: The National Academies Press.2. Angelito Renteria, Adan YEBOAH, et al. Evaluation, treatment, and prevention of vitamin D deficiency: an Endocrine Society clinical practice guideline. JCEM. 2010; 96(7):1911-30. :34 CALCIFIDIOL (45381) VIT D Comments: PATIENT WAS FASTINGPERFORMED BY: [facility] Kbbzkn9944 [facility] [id number] BY: LabRichard Ville 115847 [facility] [id number] Vitamin D, 25-Hydroxy 71.5 ng/mL (Normal) Range: 30.0-100.0 Comments: Vitamin D deficiency has been defined by the Evans ofMedicine and an Endocrine Society practice guideline as alevel of serum 25-OH vitamin D less than 20 ng/mL (1,2).The Endocrine Society went on to further define vitamin Dinsufficiency as a level between 21 and 29 ng/mL (2).1. IOM (Evans of Medicine). 2010. Dietary reference intakes for calcium and D. [place]: The National Academies Press.2. Angelito Renteria, Adan YEBOAH, et al. Evaluation, treatment, and prevention of vitamin D deficiency: an Endocrine Society clinical practice guideline. JCEM. 2010; 96(7):1911-30. :34 LIPID PANEL (58558) Comments: PATIENT WAS FASTINGPERFORMED BY: VideregenKindred Hospital at MorrisEzaeek[address] [place] [address] [id number] BY: [address] [id number]; will review at 10/01 appt LDL/HDL Ratio [...] mg/dL (Normal) Range: 100-199 :34 CCP ANTIBODY (40198) Comments: PATIENT WAS FASTINGPERFORMED BY: [employer] IncRobin Ville 8457270 [facility] [id number] BY: [address] [id number] CCP Antibodies IgG/IgA 6 {units} (Normal) Range: 0-19 Comments: Negative <20 Weak positive 20 - 39 Moderate positive 40 - 59 Strong positive >59 :34 TSH (25869) Comments: PATIENT WAS FASTINGPERFORMED BY: [employer] [id number] BY: [address] [id number] TSH 1.640 {uIU/mL} (Normal) Range: 0.450-4.500 :34 RHEUMATOID FACTOR-QUANT Comments: PATIENT WAS FASTINGPERFORMED BY: VideregenKindred Hospital at MorrisBwfyya3987 [facility] [id number] BY: [address] [id number] (99766) RA Latex Turbid. 9.9 {IU/mL} (Normal) Range: 0.0-13.9 :34 KRISTEL (ANTINUCLEAR ANTIBODY) Comments: PATIENT WAS FASTINGPERFORMED BY: VideregenRobin V[place] 8457270 [facility] [id number] BY: [address] [id number] (64213) KRISTEL Direct Negative (Normal) :34 C-REACTIVE PROTEIN (92686) Comments: PATIENT WAS FASTINGPERFORMED BY: VideregenRobin [place] 8457270 [facility] [id number] BY: [address] [id number] C-Reactive Protein, Quant 0.9 mg/L (Normal) Range: 0.0-4.9 :34 Sed Rate Erythrocyte Comments: PATIENT WAS FASTINGPERFORMED BY: VideregenRobin [place] 8457270 [facility] [id number] BY: [address] [id number] (29223) Sedimentation Rate-Westergren 16 mm/h (Normal) Range: 0-40 :34 CBC with auto diff Comments: PATIENT WAS FASTINGPERFORMED BY: VideregenKindred Hospital at MorrisQuufnp7947 [facility] [id number] BY: [address] [id number] Inf ormation: [id number] (28448) Immature Grans (Abs) 0.0 {x10E3/uL} (Normal) Range: [...] 3.77-5.28 WBC 9.3 {x10E3/uL} (Normal) Range: 3.4-10.8 25-Qbo-72872:34 Metabolic Panel, Comments: PATIENT WAS FASTINGPERFORMED BY: CB [facility] [address] [id number] BY: BN [facility] Htfqoqdwpy6175 [facility] [id number] [facility] (52213) ALT (SGPT) 33 [iU]/L (Abnormal) Range: 0-32 [...] (Normal) Range: 65-99 :32 HgA1C , Office (05394) HgA1C , Office 5.8 % (Normal) Range: 4.6 - 7.1 :32 Blood Glucose , Office (40833) Blood Glucose , Office 85 (Normal) :16 Microscopic Examination Comments: PATIENT NOT FASTINGPERFORMED BY: [employer] [facility] Akczxz4466 [facility] [id number] Bacteria Few (Normal) Epithelial Cells (non renal) 0-10 {/hpf} (Normal) Range: 0 - 10 RBC None seen {/hpf} (Normal) Range: 0 - 2 WBC None seen {/hpf} (Normal) Range: 0 - 5 :16 T4, FREE (THYROXINE) (57250) Comments: send copy to dr rene [phone]; PATIENT NOT FASTINGPERFORMED BY: [employer] Anhkbw8029 [facility]SongToYouCritical access hospital [id number] T4,Free(Direct) 1.10 ng/dL (Normal) Range: 0.82-1.77 :16 TSH (20996) Comments: send copy to dr lópez [phone]; PATIENT NOT FASTINGPERFORMED BY: [facility] Keoxtj3929 [facility] [id number] TSH 1.230 {uIU/mL} (Normal) Range: 0.450-4.500 :16 CALCIFIDIOL (95378) VIT D 25 Comments: PATIENT NOT FASTINGPERFORMED BY: [facility] Fvjcnm2051 [facility] [id number] Vitamin D, 25-Hydroxy 38.0 ng/mL (Normal) Range: 30.0-100.0 Comments: Vitamin D deficiency has been defined by the Evans ofMedicine and an Endocrine Society practice guideline as alevel of serum 25-OH vitamin D less than 20 ng/mL (1,2).The Endocrine Society went on to further define vitamin Dinsufficiency as a level between 21 and 29 ng/mL (2).1. IOM (Evans of Medicine). 2010. Dietary reference intakes for calcium and D. [place]: The National Academies Press.2. Deepak MF, Angelito ARANDA, Adan YEBOAH, et al. Evaluation, treatment, and prevention of vitamin D deficiency: an Endocrine Society clinical practice guideline. JCEM. 2010; 96(7):1911-30. :16 URINALYSIS, W/ MICRO (41408) Comments: PATIENT NOT FASTINGPERFORMED BY: [facility]6370 [facility] [id number] Microscopic Examination See below: (Normal) Comments: Microscopic was indicated and was performed. Microscopic Examination MICRON (Normal) Comments: Microscopic follows if indicated. Nitrite, Urine Negative (Normal) Urobilinogen,Semi-Qn 0.2 mg/dL (Normal) Range: 0.2-1.0 Bilirubin Negative (Normal) Occult Blood Negative (Normal) Ketones Negative (Normal) Glucose Negative (Normal) Protein Negative (Normal) WBC Esterase Negative (Normal) Appearance Clear (Normal) Urine-Color Yellow (Normal) pH 6.5 (Normal) Range: 5.0-7.5 Specific [facility] 1.010 (Normal) Range: 1.005-1.030 :16 MICROALBUMIN: CREATININE RATIO Comments: PATIENT NOT FASTINGPERFORMED BY: VideregenCarlsbad Medical CenterJlihgc9938 [facility] HospitalLinux VoiceCritical access hospital [id number] (96462) AND (38234) Microalb/Creat Ratio <15.3 {mg/g_creat} (Normal) Range: 0.0-30.0 Microalbumin, Urine <3.0 ug/mL (Normal) Range: 0.0-17.0 Creatinine, Urine 19.6 mg/dL (Normal) Range: 15.0-278.0 :16 METABOLIC PANEL, COMPREHENSIVE Comments: PATIENT NOT FASTINGPERFORMED BY: [employer] Dckvtl0837 [facility] HospitalLinux VoiceCritical access hospital [id number] (76757) ALT (SGPT) 23 [iU]/L (Normal) Range: 0-32 [...] Glucose, Serum 92 mg/dL (Normal) Range: 65-99 :16 LIPID PANEL (48708) Comments: PATIENT NOT FASTINGPERFORMED BY: VideregenKindred Hospital at MorrisJzzgsu9717 [facility] [id number] LDL/HDL Ratio 2.7 {ratio_units} (Normal) Range: 0.0-3.2 [...] DIFF WBC Comments: PATIENT NOT FASTINGPERFORMED BY: VideregenKindred Hospital at MorrisRfdidx8675 [facility] [id number] Information: [id number] (88006) Immature Grans (Abs) 0.0 {x10E3/uL} (Normal) Range: [...] (Normal) Range: 3.4-10.8 :14 HgA1C , Office (71209) HgA1C , Office 5.5 % (Normal) Range: 4.6 - 7.1 :14 Blood Glucose , Office (05369) Blood Glucose , Office 86 (Normal) :54 HgA1C , Office (28935) HgA1C , Office 6.0 % (Normal) Range: 4.6 - 7.1 :54 Blood Glucose , Office (15590) Blood Glucose , 101 (Normal) Office :5 AFP, Serum, Tumor 1.4 ng/mL (Normal) Comments: PATIENT WAS FASTINGPERFORMED BY: [facility] IncCarlsbad Medical CenterHiwgfj0112 [facility] [id number] Marker Range: 0.0-8.3 Comments: Laury ECLIA methodology :57 CBC With Differential/Platelet Comments: PATIENT WAS FASTINGPERFORMED BY: [employer] Xhgfwl2421 [facility] [id number] Information: [id number] Immature Grans (Abs) 0.0 {x10E3/uL} (Normal) Range: [...] Panel (14) Comments: PATIENT WAS FASTINGPERFORMED BY: LabCoKindred Hospital at MorrisDocacf0777 [facility] [id number] ALT (SGPT) 27 [iU]/L (Normal) Range: 0-32 [...] With LDL/HDL Comments: PATIENT WAS FASTINGPERFORMED BY: [facility]HunterI[facility] [id number] Ratio LDL/HDL Ratio 1.9 {ratio_units} (Normal) Range: [...] mg/dL (Normal) Range: 100-199 :57 Microalb/Creat Ratio, Randm Ur Comments: PATIENT WAS FASTINGPERFORMED BY: TycheCritical access hospital [id number] Microalb/Creat Ratio 8.5 {mg/g_creat} (Normal) Range: 0.0-30.0 Microalbumin, Urine 9.0 ug/mL (Normal) Range: 0.0-17.0 Creatinine, Urine 105.6 mg/dL (Normal) Range: 15.0-278.0 :57 Microscopic Examination Comments: PATIENT WAS FASTINGPERFORMED BY: [facility]6370 [facility] [id number] Bacteria Few (Normal) Mucus Threads Present (Normal) Epithelial Cells (non renal) >10 {/hpf} (Abnormal) Range: 0 - 10 RBC 0-2 {/hpf} (Normal) Range: 0 - 2 WBC 0-5 {/hpf} (Normal) Range: 0 - 5 :57 Prothrombin Time (PT) Comments: PATIENT WAS FASTINGPERFORMED BY: [facility]6370 [facility] [id number] Prothrombin Time 10.9 {sec} (Normal) Range: 9.1-12.0 INR 1.0 (Normal) Range: 0.8-1.2 Comments: Reference interval is for non-anticoagulated patients. . Suggested INR therapeutic range for Vitamin K anta gonist therapy: Standard Dose (moderate intensity therapeutic range): 2.0 - 3.0 Higher intensity therapeutic range 2.5 - 3.5 :57 PTT, Activated Comments: PATIENT WAS FASTINGPERFORMED BY: [facility]6370 [facility] [id number] aPTT 28 {sec} (Normal) Range: 24-33 Comments: This test has not been validated for monitoring unfractionated heparintherapy. aPTT-based therapeutic ranges for unfractionated heparintherapy have not been established. For general guidelines onHeparin monitoring, refer to the [facility] Directory of Services. :57 Urinalysis, Complete Comments: PATIENT WAS FASTINGPERFORMED BY: [facility]6370 [facility] [id number] Microscopic Examination See below: (Normal) Comments: Microscopic was indicated and was performed. Microscopic Examination MICRON (Normal) Comments: Microscopic follows if indicated. Nitrite, Urine Negative (Normal) Urobilinogen,Semi-Qn 0.2 mg/dL (Normal) Range: 0.0-1.9 Bilirubin Negative (Normal) Occult Blood Negative (Normal) Ketones Negative (Normal) Glucose Negative (Normal) Protein Negative (Normal) WBC Esterase Negative (Normal) Appearance Cloudy (Abnormal) Urine-Color Yellow (Normal) pH 6.0 (Normal) Range: 5.0-7.5 Specific [facility] 1.020 (Normal) Range: 1.005-1.030 : Vitamin D, 25-Hydroxy 56.0 ng/mL (Normal) Comments: PATIENT WAS FASTINGPERFORMED BY: [facility] Hgarif3945 [facility] [id number] Range: 30.0-100.0 Comments: Vitamin D deficiency has been defined by the Evans ofMedicine and an Endocrine Society practice guideline as alevel of serum 25-OH vitamin D less than 20 ng/mL (1,2).The Endocrine Society went on to further define vitamin Dinsufficiency as a level between 21 and 29 ng/mL (2).1. IOM (Evans of Medicine). 2010. Dietary reference intakes for calcium and D. [place]: The National Academies Press.2. Deepak MF, Angelito [place], Adan YEBOAH, et al. Evaluation, treatment, and prevention of vitamin D deficiency: an Endocrine Society clinical practice guideline. JCEM. 2010; 96(7):1911-30. :31 HgA1C , Office (72271) HgA1C , Office 6.1 % (Normal) Range: 4.6 - 7.1 :31 Blood Glucose , Office (30532) Blood Glucose , Office 106 (Normal) :36 Mass (define area) See Note (Normal) Comments: Test performed at:[facility] [address]qiebodfdt[address] [place] [address] Comments: Patient: DINAH HICKMAN : 1945 (69/F) Acct Num: [id number] Phys: Edu Mayen Unit Num: [id number] Loc: [facility] Specimen: [id number] Received: 11/22/141318 Spec Type: Mass TISSUES TISSUES: COMMENT Case [...] and submitted entirely in two cassettes. / ADRIEN:dee 11/22/14 TC:5 CPT: 77734 HEADER OPERATION: Lap assisted robotic removal PRE-OPERATIVE DIAGNOSIS: Right lower q uadrant mass TISSUE SUBMITTED: Right pelvic mass MICROSCOPIC DIAGNOSIS Right pelvic mass, biopsy: Consistent with benign cyst, may represent benign paratubal cyst. SJ:dee 11/25/14 Signed Kade Elmer 11/25/14 <signature on file> 49-Sux-128888:30 TSH (49025) Comments: PATIENT NOT FASTINGPERFORMED BY: [facility] Lnfixk4226 [facility] [id number] TSH 1.160 {uIU/mL} (Normal) Range: 0.450-4.500 54-Eal-407685:30 T4, FREE (THYROXINE) Comments: PATIENT NOT FASTINGPERFORMED BY: LabMcl[facility]6370 [facility] [id number] Information: [id number] (56973) T4,Free(Direct) 1.18 ng/dL (Normal) Range: 0.82-1.77 27-Ctr-874231:30 T3, FREE (TRIDOTHYRONINE) (56928) Comments: PATIENT NOT FASTINGPERFORMED BY: [facility] Nvvsce3370 [facility] [id number] Triiodothyronine,Free,Serum 3.1 pg/mL (Normal) Range: 2.0-4.4 2-Cas-079342:30 Basic Metabolic Profile (BMP) Comments: Test performed at:[facility] Xqlesjsvhf08[address] [place] [place] [address] GAP 7 (Normal) Range: 5-15 CO2 26.0 [...] 7-18 GLU 90 mg/dL (Normal) Range: 70-110 6-Wsj-468394:30 CBC W/Diff, Automated Comments: Test performed at:[facility] Jdabeygdwt6360 [address] [place], [place] [address] Absolute Lymph 2.87 {X10_3/ul} (Normal) Range: 0.83-4.51 [...] 4.2-5.4 WBC 12.7 K/mm3 (Abnormal) Range: 4.4-11.0 :19 HEPATIC FUNCTION PANEL Comments: PATIENT NOT FASTINGPERFORMED BY: VideregenKindred Hospital at MorrisBrysgu1417 [facility] [id number] Information: [id number] (26260) ALT (SGPT) 44 [iU]/L (Abnormal) Range: 0-32 AST (SGOT) 37 [iU]/L (Normal) Range: 0-40 Alkaline Phosphatase, S 107 [iU]/L (Normal) Range: 39-117 Bilirubin, Direct 0.12 mg/dL (Normal) Range: 0.00-0.40 Bilirubin, Total 0.5 mg/dL (Normal) Range: 0.0-1.2 Albumin, Serum 4.6 g/dL (Normal) Range: 3.6-4.8 Protein, Total, Serum 7.5 g/dL (Normal) Range: 6.0-8.5 :19 Vitamin D Hydroxy (97129) Comments: PATIENT NOT FASTINGPERFORMED BY: [facility] Gblfpf9906 [facility] [id number] Vitamin D, 25-Hydroxy 70.0 ng/mL (Normal) Range: 30.0-100.0 Comments: Vitamin D deficiency has been defined by the Evans ofMedicine and an Endocrine Society practice guideline as alevel of serum 25-OH vitamin D less than 20 ng/mL (1,2).The Endocrine Society went on to further define vitamin Dinsufficiency as a level between 21 and 29 ng/mL (2).1. IOM (Evans of Medicine). 2010. Dietary reference intakes for calcium and D. [place]: The National Academies Press.2. Deepak MF, Angelito NC, Adan YEBOAH, et al. Evaluation, treatment, and prevention of vitamin D deficiency: an Endocrine Society clinical practice guideline. JCEM. 2010; 96(7):1911-30. -:03 HgA1C , Office (24259) HgA1C , Office 6.3 % (Normal) Range: 4.6 - 7.1 05-Sep-20148:03 Blood Glucose , Office (75261) Blood Glucose , Office 118 (Normal) 87-Hmo-604598:14 URINE ENRIQUE CULTURE-EDITH COL Comments: PATIENT NOT FASTINGPERFORMED BY: [employer] Rydybp4048 [facility] [id number] Information: SRC:UR [id number] COUNT (03039) Antimicrobial MIHEAD (Normal) Comments: S = Susceptible; [...] mL (Abnormal) Urine Final report Culture,Comprehensive (Abnormal) 78-Yop-952119:15 Urinalysis, Office (24950) UA - LEUKOCYTE ESTERASE Small (Normal) UA - NITRITE Negative (Normal) URINE UROBILINGN EDITH TIMED 2 mg/dL (Normal) UA - PROTEIN Negative mg/dL (Normal) UA - PH 6.5 (Normal) UA - BLOOD Hemolyzed Small (Normal) UA - SPECIFIC GRAVITY 1.015 (Normal) UA - KETONES Negative mg/dL (Normal) UA - BILIRUBIN Negative (Normal) UA - GLUCOSE Negative (Normal) 61-Rit-11573:48 HgA1C , Office (94886) HgA1C , Office 6.4 % (Normal) Range: 4.6 - 7.1 :48 Blood Glucose , Office (74432) Blood Glucose , Office 123 (Normal) 80-Obg-257846:15 Microscopic Examination Comments: PATIENT WAS FASTINGPERFORMED BY: [employer] Ecfdin0682 [facility] [id number] Bacteria None seen (Normal) Mucus Threads Present (Normal) Epithelial Cells (non renal) 0-10 {/hpf} (Normal) Range: 0 - 10 RBC 0-2 {/hpf} (Normal) Range: 0 - 2 WBC 0-5 {/hpf} (Normal) Range: 0 - 5 10-Mqz-498311:15 LIPID PANEL (41645) Comments: PATIENT WAS FASTINGPERFORMED BY: [employer] Cnrssv8194 [facility] [id number] LDL/HDL Ratio 1.8 {ratio_units} (Normal) Range: 0.0-3.2 [...] Cholesterol, Total 164 mg/dL (Normal) Range: 100-199 96-Tsh-385638:15 URINALYSIS, W/ MICRO (13335) Comments: PATIENT WAS FASTINGPERFORMED BY: [employer] [facility] [id number] Microscopic Examination See below: (Normal) Comments: Microscopic was indicated and was performed. Microscopic Examination MICRON (Normal) Comments: Microscopic follows if indicated. Nitrite, Urine Negative (Normal) Urobilinogen,Semi-Qn 0.2 mg/dL (Normal) Range: 0.0-1.9 Bilirubin Negative (Normal) Occult Blood Negative (Normal) Ketones Negative (Normal) Glucose Negative (Normal) Protein Negative (Normal) WBC Esterase Negative (Normal) Appearance Clear (Normal) Urine-Color Yellow (Normal) pH 6.0 (Normal) Range: 5.0-7.5 Specific [facility] 1.016 (Normal) Range: 1.005-1.030 73-Rmv-679628:15 MICROALBUMIN: CREATININE RATIO Comments: PATIENT WAS FASTINGPERFORMED BY: [facility] IncKindred Hospital at MorrisSaxzzr8883 [facility] [id number] (47042) AND (87889) Microalb/Creat Ratio 5.9 {mg/g_creat} (Normal) Range: 0.0-30.0 Microalbumin, Urine 4.4 ug/mL (Normal) Range: 0.0-17.0 Creatinine, Urine 74.2 mg/dL (Normal) Range: 15.0-278.0 90-Tuf-523831:15 METABOLIC PANEL, COMPREHENSIVE Comments: PATIENT WAS FASTINGPERFORMED BY: JENNA [facility] [id number] (61966) ALT (SGPT) 45 [iU]/L (Abnormal) Range: 0-32 [...] Glucose, Serum 112 mg/dL (Abnormal) Range: 65-99 70-Afw-350506:15 CBC WITH MANUAL DIFF Comments: PATIENT WAS FASTINGPERFORMED BY: Get-n-Post RoadDublin [place] [id number] Information: [id number] (91686) Immature Grans (Abs) 0.0 {x10E3/uL} (Normal) Range: [...] 3.77-5.28 WBC 8.1 {x10E3/uL} (Normal) Range: 3.4-10.8 22-Erh-318164:15 TSH (59405) Comments: PATIENT WAS FASTINGPERFORMED BY: JENNA [facility]akosMcl[facility] Hospital6370 [facility] [id number] TSH 0.819 {uIU/mL} (Normal) Range: 0.450-4.500 40-Dzy-378579:15 CALCIFIDIOL (73707) VIT D 25 Comments: PATIENT WAS FASTINGPERFORMED BY: [address] [id number] Vitamin D, 25-Hydroxy 27.2 ng/mL (Abnormal) Range: 30.0-100.0 Comments: Vitamin D deficiency has been defined by the Evans ofMedicine and an Endocrine Society practice guideline as alevel of serum 25-OH vitamin D less than 20 ng/mL (1,2).The Endocrine Society went on to further define vitamin Dinsufficiency as a level between 21 and 29 ng/mL (2).1. IOM (Evans of Medicine). 2010. Dietary reference intakes for calcium and D. [place]: The National Academies Press.2. Deepak MF, Angelito ARANDA, Adan YEBOAH, et al. Evaluation, treatment, and prevention of vitamin D deficiency: an Endocrine Society clinical practice guideline. JCEM. 2010; 96(7):1911-30. 18-Bll-934896:15 HEPATIC FUNCTION PANEL Comments: PATIENT WAS FASTINGPERFORMED BY: [address] [id number] (77466) Bilirubin, Direct 0.16 mg/dL (Normal) Range: 0.00-0.40 CA125 13.7 U/mL (Normal) Range: 0.0-34.0 :40 Comments: Laury ECLIA methodologyPerformed at: [address] [id number] Director: Bebo Salgado PhD, Phone: [phone] CEA 2.0 ng/mL (Normal) Range: 0.0-4.7 :40 Comments: Laury ECLIA methodology Nonsmokers <3.9Smokers <5.6 MISC . (Normal) Comments: Comments: HE4;OVARIAN TUMOR MARKER 07751, SERUM REFTest(s) Ordered: HE4;OVARIAN TUMOR MARKER 39549 :40 Comments: Human Epididymis Protein 4Reference RangeHE4 84 pmol/L 0 - 150Methodology:Model MetricsireGiftxoxo EIATesting Performed LabChristian HospitalDirector: Dayron Thompson MD[address] [place] [address] 06-Zsf-233424:08 CRE ECRCL 54.90 ml/min (Normal) GFRAA 92 mL/min (Normal) GFR 76 mL/min (Normal) CREAT 0.8 mg/dL (Normal) Range: 0.6-1.0 :02 HgA1C , Office (64063) HgA1C , Office 6.2 % (Normal) Range: 4.6 - 7.1 :02 Blood Glucose , Office (41804) Blood Glucose , Office 100 (Normal) 57-Yql-649633:27 Pathology Report Comments: PERFORMED BY: [facility] [place] [facility] Qllxr09181 [facility] [id number] Information: [id number] See MATER Comments: Material submitted: .SHAVE SCALPClinician provided ICD-9:239.2 ; Neoplasms of unspecified nature of bone, soft tissue, and skinClinical history: Note (Normal) .PARTIAL FELL OFF IN SHOWER; RAISED SCALY AND NEUTRAL BASEDiagnosis:SHAVE SCALP:BENIGN LICHENOID KERATOSIS WI TH FEATURES ARE SUGGESTIVE OF SEBORRHEICKERATOSIS, INFLAMED.NO DYSPLASIA OR MALIGNANCY IDENTIFIED ON THE SECTIONS.12/26/2013Andrew reyes signed: .Mukul Conley MD, PhD, PathologistGross description: .1 Container, formalin-filled, labeled with patient ident ification.SHAVE SCALP:Received in formalin labeled DINAH Romo HICKMAN is a chadwick-yellowfragment of skin measuring 0.3 x 0.3 x 0.1 cm.The margin is markedwith black ink.It is bisected and submitted entirel y in a singlecassette./LMSLMS/LMSPathologist provided ICD-9:697.9, 702.11CPT .232649 :24 Vitamin D Hydroxy (50297) Comments: PATIENT WAS FASTINGPERFORMED BY: [facility] Wgkdge7044 [facility] [place] [id number] Vitamin D, 25-Hydroxy 29.5 ng/mL (Abnormal) Range: 30.0-100.0 Comments: Vitamin D deficiency has been defined by the Evans ofMedicine and an Endocrine Society practice guideline as alevel of serum 25-OH vitamin D less than 20 ng/mL (1,2).The Endocrine Society went on to further define vitamin Dinsufficiency as a level between 21 and 29 ng/mL (2).1. IOM (Evans of Medicine). 2010. Dietary reference intakes for calcium and D. [place]: The National Academies Press.2. Deepak MF, Angelito NC, Adan YEBOAH, et al. Evaluation, treatment, and prevention of vitamin D deficiency: an Endocrine Society clinical practice guideline. JCEM. 2010; 96(7):1911-30. 32-Yfq-636265:24 TSH (28101) Comments: PATIENT WAS FASTINGPERFORMED BY: Videregen Rzjvex0881 [facility] [id number] TSH 0.868 {uIU/mL} (Normal) Range: 0.450-4.500 58-Rcx-748342:24 MICROALBUMIN: CREATININE RATIO Comments: PATIENT WAS FASTINGPERFORMED BY: [facility] Lbwcmy6608 [facility] [id number] (52740) AND (65661) Microalb/Creat Ratio 15.6 {mg/g_creat} (Normal) Range: 0.0-30.0 Microalbumin, Urine 9.8 ug/mL (Normal) Range: 0.0-17.0 Creatinine, Urine 62.8 mg/dL (Normal) Range: 15.0-278.0 :24 METABOLIC PANEL, COMPREHENSIVE Comments: PATIENT WAS FASTINGPERFORMED BY: V[employer]regen Gzpdzx7110 [facility] [id number] (37499) ALT (SGPT) 34 [iU]/L (Abnormal) Range: 0-32 [...] Glucose, Serum 91 mg/dL (Normal) Range: 65-99 11-Nap-682858:24 CBC WITH MANUAL DIFF Comments: PATIENT WAS FASTINGPERFORMED BY: [facility] Yxzbuk3549 [facility] [id number] Information: [id number] (97053) Immature Grans (Abs) 0.0 {x10E3/uL} (Normal) Range: [...] 3.77-5.28 WBC 8.6 {x10E3/uL} (Normal) Range: 3.4-10.8 :24 LIPID PANEL (16828) Comments: PATIENT WAS FASTINGPERFORMED BY: [facility] at MorrisSfoase7380 [facility] [id number] LDL/HDL Ratio 1.7 {ratio_units} (Normal) Range: 0.0-3.2 LDL Cholesterol Calc 76 mg/dL (Normal) Range: 0-99 HDL Cholesterol 45 mg/dL (Normal) Comments: According to ATP-III Guidelines, HDL-C >59 mg/dL is considered anegative risk factor for CHD. Triglycerides 157 mg/dL (Abnormal) Range: 0-149 VLDL Cholesterol Abran 31 mg/dL (Normal) Range: 5-40 Cholesterol, Total 152 mg/dL (Normal) Range: 100-199 04-Bbx-098154:39 HgA1C , Office (77733) HgA1C , Office 6.1 % (Normal) Range: 4.6 - 7.1 24-Spp-954873:39 Blood Glucose , Office (58320) Blood Glucose , Office 89 (Normal) 06-Qav-252787:27 Microscopic Examination Comments: PATIENT WAS FASTINGPERFORMED BY: V[employer] Dlmldw1809 [facility] [id number] Bacteria None seen (Normal) Mucus Threads Present (Normal) Epithelial Cells (non renal) >10 {/hpf} (Abnormal) Range: 0 - 10 RBC 0-3 {/hpf} (Normal) Range: 0 - 3 WBC None seen {/hpf} (Normal) Range: 0 - 5 14-Ydp-476011:36 TSH (46512) Comments: PATIENT WAS FASTINGPERFORMED BY: Videregen Kubi Mobi [facility] [id number] TSH 0.876 {uIU/mL} (Normal) Range: 0.450-4.500 41-Ytg-134772:36 URINALYSIS, W/ MICRO (66398) Comments: PATIENT WAS FASTINGPERFORMED BY: V[employer] Vfwvpa6326 [facility] [id number] Microscopic Examination See below: (Normal) Microscopic Examination MICRON (Normal) Comments: Microscopic follows if indicated. Nitrite, Urine Negative (Normal) Urobilinogen,Semi-Qn 0.2 mg/dL (Normal) Range: 0.0-1.9 Bilirubin Negative (Normal) Occult Blood Negative (Normal) Ketones Negative (Normal) Glucose Negative (Normal) Protein Negative (Normal) WBC Esterase Negative (Normal) Appearance Clear (Normal) Urine-Color Yellow (Normal) pH 6.5 (Normal) Range: 5.0-7.5 Specific [facility] 1.015 (Normal) Range: 1.005-1.030 21-Icd-465513:36 MICROALBUMIN: CREATININE RATIO Comments: PATIENT WAS FASTINGPERFORMED BY: Videregen Kubi Mobi [facility] [id number] ([id number]) AND (38095) Microalb/Creat Ratio 9.9 {mg/g_creat} (Normal) Range: 0.0-30.0 Microalbumin, Urine 6.6 ug/mL (Normal) Range: 0.0-17.0 Creatinine, Urine 66.8 mg/dL (Normal) Range: 15.0-278.0 72-Con-192887:36 METABOLIC PANEL, COMPREHENSIVE Comments: PATIENT WAS FASTINGPERFORMED BY: Colto70 [facility] [id number] (48150) ALT (SGPT) 36 [iU]/L (Abnormal) Range: 0-32 [...] Glucose, Serum 93 mg/dL (Normal) Range: 65-99 18-Ljr-120678:36 LIPID PANEL (34737) Comments: PATIENT WAS FASTINGPERFORMED BY: ThinkLink6370 [facility] [id number] LDL/HDL Ratio 2.2 {ratio_units} (Normal) Range: 0.0-3.2 LDL Cholesterol Calc 94 mg/dL (Normal) Range: 0-99 VLDL Cholesterol Abran 38 mg/dL (Normal) Range: 5-40 HDL Cholesterol 43 mg/dL (Normal) Comments: According to ATP-III Guidelines, HDL-C >59 mg/dL is considered anegative risk factor for CHD. Triglycerides 188 mg/dL (Abnormal) Range: 0-149 Cholesterol, Total 175 mg/dL (Normal) Range: 100-199 75-Aqn-593734:36 CBC WITH MANUAL DIFF Comments: PATIENT WAS FASTINGPERFORMED BY: [facility]6370 [facility] [id number] Information: [id number] (69095) Immature Grans (Abs) 0.0 {x10E3/uL} (Normal) Range: [...] 3.77-5.28 WBC 8.3 {x10E3/uL} (Normal) Range: 3.4-10.8 00-Ftm-545914:36 Vitamin D Hydroxy (30786) Comments: PATIENT WAS FASTINGPERFORMED BY: V[employer]gen Buxsgk5613 [facility] [id number] Vitamin D, 25-Hydroxy 40.2 ng/mL (Normal) Range: 30.0-100.0 Comments: Vitamin D deficiency has been defined by the Evans ofMedicine and an Endocrine Society practice guideline as alevel of serum 25-OH vitamin D less than 20 ng/mL (1,2).The Endocrine Society went on to further define vitamin Dinsufficiency as a level between 21 and 29 ng/mL (2).1. IOM (Evans of Medicine). 2010. Dietary reference intakes for calcium and D. [place]: The National Academies Press.2. Deepak MF, Angelito NC, Adan YEBOAH, et al. Evaluation, treatment, and prevention of vitamin D deficiency: an Endocrine Society clinical practice guideline. JCEM. 2010; 96(7):1911-30. 28-Lbd-751563:55 HgA1C , Office (44090) HgA1C , Office 5.9 % (Normal) Range: 4.6 - 7.1 68-Dvk-548884:55 Blood Glucose , Office (80785) Blood Glucose , Office 103 (Normal) :38 MICROALBUMIN: CREATININE RATIO Comments: PATIENT WAS FASTINGPERFORMED BY: V[employer]regen Rrnjcx3578 [facility] [id number] (14425) AND (09199) Microalb/Creat Ratio 4.6 {mg/g_creat} (Normal) Range: 0.0-30.0 Microalbumin, Urine 4.7 ug/mL (Normal) Range: 0.0-17.0 Creatinine, Urine 103.1 mg/dL (Normal) Range: 15.0-278.0 18-Dto-269400:38 URINALYSIS (02669) Comments: PATIENT WAS FASTINGPERFORMED BY: V[facility]regenKindred Hospital at MorrisRowfxj1517 [facility] [id number] Microscopic Examination MICRON (Normal) Comments: Microscopic follows if indicated. Nitrite, Urine Negative (Normal) Urobilinogen,Semi-Qn 0.2 mg/dL (Normal) Range: 0.0-1.9 Bilirubin Negative (Normal) Occult Blood Negative (Normal) Ketones Negative (Normal) Glucose Negative (Normal) Protein Negative (Normal) WBC Esterase Negative (Normal) Appearance Clear (Normal) Urine-Color Yellow (Normal) pH 5.0 (Normal) Range: 5.0-7.5 Specific [facility] 1.017 (Normal) Range: 1.005-1.030 :38 CALCIFEDIOL (10472) Comments: PATIENT WAS FASTINGPERFORMED BY: [employer] Vcrktx9357 [facility] [id number] Vitamin D, 25-Hydroxy 21.0 ng/mL (Abnormal) Range: 30.0-100.0 Comments: Vitamin D deficiency has been defined by the Evans ofAccess Hospital Daytoncine and an Endocrine Society practice guideline as alevel of serum 25-OH vitamin D less than 20 ng/mL (1,2).The Endocrine Society went on to further define vitamin Dinsufficiency as a level between 21 and 29 ng/mL (2).1. IOM (Evans of Medicine). 2010. Dietary reference intakes for calcium and D. [place]: The National Academies Press.2. Deepak MF, Angelito NC, Adan YEBOAH, et al. Evaluation, treatment, and prevention of vitamin D deficiency: an Endocrine Society clinical practice guideline. JCEM. 2010; 96(7):1911-30. :38 CBC with manual diff Comments: PATIENT WAS FASTINGPERFORMED BY: [facility] IncKindred Hospital at MorrisSazqeo1446 [facility] [id number] Information: [id number] ORDER NO DRAW F EE (55263) Immature Grans (Abs) 0.0 {x10E3/uL} (Normal) Range: [...] 3.77-5.28 WBC 7.9 {x10E3/uL} (Normal) Range: 3.4-10.8 11-Uxc-383651:38 TSH (38970) Comments: PATIENT WAS FASTINGPERFORMED BY: LabCoKindred Hospital at MorrisMscwph6947 [facility] [id number] TSH 0.812 {uIU/mL} (Normal) Range: 0.450-4.500 03-Igq-187382:38 Metabolic Panel, Comprehensive Comments: PATIENT WAS FASTINGPERFORMED BY: LabCoKindred Hospital at MorrisSldhrz2844 [facility] [id number] (11697) ALT (SGPT) 41 [iU]/L (Abnormal) Range: 0-32 [...] Glucose, Serum 104 mg/dL (Abnormal) Range: 65-99 91-Sse-505022:38 Lipid Panel (17457) Comments: PATIENT WAS FASTINGPERFORMED BY: ClearSaleing70 [facility] [id number] LDL/HDL Ratio 2.8 {ratio_units} (Normal) Range: 0.0-3.2 [...] FECAL OCCULT HGB ASSAY- tubes sent home (71931) FECAL OCCULT HGB ASSAY, QUAL, 1-3 SIMULTANEOU negative (Normal) :21 H-Pylori IGA,IGG,IGM Comments: PATIENT NOT FASTINGPERFORMED BY: [employer]aleing70 Junior [facility] HospitalAdielCritical [facility] hospital [id number] Information: [id number] (96426) H. pylori, IgM Abs 2.9 {units} (Normal) Range: 0.0-8.9 Comments: Negative <9.0 Equivocal 9.0 - 11.0 Positive >11.0 . This test was developed and its performance characteristics determined by [facility]. It has not been cleared or approved [...] Positive >1.0 :08 Blood Glucose , Office (46060) Blood Glucose , Office 85 (Normal) :08 HgA1C , Office (31162) HgA1C , Office 6.0 % (Normal) Range: 4.6 - 7.1 97-Miy-09496:28 BILAT SCRN DIGITAL & CAD Radiology Report [...] M.D.February 15, 2013 at 9 :58:29 AM [id number] Signed GP/GP If you are the referring physician and would like to consult with theradiologist who provided this interpretation, please contact Jamie Blount at [phone]. If this radiologist is unavailable, youwill be directed to another radiologist to assist. If you are a patient with a question regarding this report, pleasecontactyour referring ph ysician directly. Professional Interpretation Provided By: WappZapp, Phone , These documents contain legally protected [...] Dictated on 02/15/13 0958 by Iam Sanders MDTranscribed on 02/15/13 1025 by ITS IMPORTSign by Kale Sanders MD on 02/15/13 1026 Sign by: Kale Sanders MD DDIMQ 0.38 Range: 0.22-0.48 502956: {FEUug/mL} Comments: NORMAL D-Dimer level indicates no DVT or PE. 18 (Normal) :13 HgA1C , Office (77464) HgA1C , Office 5.8 % (Normal) Range: 4.6 - 7.1 :13 Blood Glucose , Office (01816) Blood Glucose , Office 96 (Normal) 21-Tub-036883:59 THYROID Radiology Report See Note Comments: PROCEDURE: [...] Richardson M.D.November 22, 2012 at 5:48:10 PM [id number] Signed M Stephanie/OLY If you are the referring physician and would like to consult with theradiologist who provided this interpretation, please contact Jamie Paz at [phone]. If this radiologist is unavailab le, you will bedirected to another radiologist to assist. If you are a patient with a question regarding this report, pleasecontactyour referring physician directly. Professional Interpretation Provided By: Angel, Phone , These documents contain legally protected [...] 3 {units} Comments: PATIENT NOT FASTINGPERFORMED BY: [employer]onyx [facility] [id number] BY: Videregen[address] [id number] 310:59 IgG/IgA (Normal) Range: 0-19 Comments: Negative <20 Weak positive 20 - 39 Moderate positive 40 - 59 Strong positive >59 Reverse T3, Serum 22.1 ng/dL Comments: PATIENT NOT FASTINGPERFORMED BY: [employer] [facility] [id number] BY: Videregen[address] [id number] 310:59 (Normal) Range: 9.2-24.1 12-Hru-482341:59 Anti-TPO Antibody Comments: PATIENT NOT FASTINGPERFORMED BY: Numonyx [facility] [id number] BY: Videregen[address] [id number] (41727) Thyroid Peroxidase (TPO) Ab <6 {IU/mL} (Normal) Range: 0-34 80-Ooa-561907:59 T4, FREE (THYROXINE) Comments: PATIENT NOT FASTINGPERFORMED BY: [facility] Ujtmzn8939 [facility] Hospitalbl[facility] [place] [id number] BY: [address] [id number] (00163) T4,Free(Direct) 1.08 ng/dL (Normal) Range: 0.82-1.77 56-Qvf-710802:59 T3, FREE (TRIDOTHYRONINE) Comments: PATIENT NOT FASTINGPERFORMED BY: [facility] Kixyjk5768 [facility] HospitalblI[facility] [id number] BY: [address] [id number] (35011) Triiodothyronine,Free,Serum 3.7 pg/mL (Normal) Range: 2.0-4.4 :59 CALCIFIDIOL (54793) VIT D Comments: PATIENT NOT FASTINGPERFORMED BY: LabTectura Mthdqs5348 [facility] [id number] BY: [address] [id number] 25 Vitamin D, 25-Hydroxy 16.1 ng/mL (Abnormal) Range: 30.0-100.0 Comments: Vitamin D deficiency has been defined by the Evans ofMedicine and an Endocrine Society practice guideline as alevel of serum 25-OH vitamin D less than 20 ng/mL (1,2).The Endocrine Society went on to further define vitamin Dinsufficiency as a level between 21 and 29 ng/mL (2).1. IOM (Evans of Medicine). 2010. Dietary reference intakes for calcium and D. [place]: The National Academies Press.2. Deepak MF, Angelito ARANDA, Adan YEBOAH, et al. Evaluation, treatment, and prevention of vitamin D deficiency: an Endocrine Society clinical practice guideline. JCEM. 2010; 96(7):1911-30. :59 Folate (38079) Comments: PATIENT NOT FASTINGPERFORMED BY: [facility] Ssigda5150 Junior RoadDublin [place] [id number] BY: [address] [id number] Folate (Folic Acid), Serum >19.9 ng/mL (Normal) Comments: A serum folate concentration of less than 3.1 ng/mL isconsidered to represent clinical deficiency. 04-Vgm-560875:59 VITAMIN B-12 Comments: PATIENT NOT FASTINGPERFORMED BY: LabTecturaKindred Hospital at MorrisMihhio7902 Junior RoadDublin [place] [id number] BY: [address] [id number] (CYANOCOBALAMIN) (38320) Vitamin B12 621 pg/mL (Normal) Range: 211-946 72-Zbk-638167:59 SED RATE ERYTHROCYTE Comments: PATIENT NOT FASTINGPERFORMED BY: [employer] Ggdnlp9134 Junior RoadDublin [place] [id number] BY: [address] [id number] (33619) Sedimentation Rate-Westergren 6 mm/h (Normal) Range: 0-40 70-Kfe-229553:59 C-REACTIVE PROTEIN Comments: PATIENT NOT FASTINGPERFORMED BY: Lab[facility] Gmbzkk6787 Junior RoadDublin [place] [id number] BY: [address] [id number] (17405) C-Reactive Protein, Quant 1.2 mg/L (Normal) Range: 0.0-4.9 96-Vjq-326984:59 TSH (74061) Comments: PATIENT NOT FASTINGPERFORMED BY: [facility] Kmqdvs3005 Junior RoadDublin [place] [id number] BY: [address] [id number] TSH 1.350 {uIU/mL} (Normal) Range: 0.450-4.500 31-Xeu-004777:59 RHEUMATOID FACTOR-QUANT Comments: PATIENT NOT FASTINGPERFORMED BY: [facility] Sgsrbn8852 Junior RoadDublin [place] [id number] BY: AllakosRichard [place] 115847 [facility] [id number] (43142) RA Latex Turbid. 9.1 {IU/mL} (Normal) Range: 0.0-13.9 35-Apa-632203:59 KRISTEL (ANTINUCLEAR ANTIBODY) Comments: PATIENT NOT FASTINGPERFORMED BY: [place] 0242770 [facility] [id number] BY: [address] [id number] (34720) KRISTEL Direct Negative (Normal) :59 CBC WITH MANUAL DIFF Comments: PATIENT NOT FASTINGPERFORMED BY: VideregenRobin [place] 8457270 [facility] [id number] BY: Allakos[address] [id number] (46569) Immature Grans (Abs) 0.0 {x10E3/uL} (Normal) Range: [...] 3.77-5.28 WBC 8.2 {x10E3/uL} (Normal) Range: 4.0-10.5 41-Yvp-229265:59 METABOLIC PANEL, Comments: PATIENT NOT FASTINGPERFORMED BY: CB [facility] Vapnvk3447 [facility] [id number] BY: BN [facility] Ycnmdxllun3776 [facility] [id number] [facility] (66091) ALT (SGPT) 31 [iU]/L (Normal) Range: 0-32 [...] (Normal) Range: 65-99 :36 HgA1C , Office (82191) HgA1C , Office 5.7 % (Normal) Range: 4.6 - 7.1 :36 Blood Glucose , Office (36576) Blood Glucose , Office 81 (Normal) :48 TSH (68336) Comments: PATIENT WAS FASTINGPERFORMED BY: [employer]gen Kubi Mobi [facility] [id number] TSH 1.140 {uIU/mL} (Normal) Range: 0.450-4.500 :48 LIPID PANEL (01975) Comments: PATIENT WAS FASTINGPERFORMED BY: iSentium [facility] [id number] LDL/HDL Ratio 2.0 {ratio_units} (Normal) Range: 0.0-3.2 LDL Cholesterol Calc 100 mg/dL (Abnormal) Range: 0-99 VLDL Cholesterol Abran 29 mg/dL (Normal) Range: 5-40 HDL Cholesterol 51 mg/dL (Normal) Comments: According to ATP-III Guidelines, HDL-C >59 mg/dL is considered anegative risk factor for CHD. Cholesterol, Total 180 mg/dL (Normal) Range: 100-199 Triglycerides 143 mg/dL (Normal) Range: 0-149 :48 MICROALBUMIN: CREATININE RATIO Comments: PATIENT WAS FASTINGPERFORMED BY: [employer] Wmggdb6852 [facility] [id number] (99973) AND (44241) Microalb/Creat Ratio 12.0 {mg/g_creat} (Normal) Range: 0.0-30.0 Microalbumin, Urine 10.9 ug/mL (Normal) Range: 0.0-17.0 Creatinine, Urine 90.7 mg/dL (Normal) Range: 15.0-278.0 :48 METABOLIC PANEL, COMPREHENSIVE Comments: PATIENT WAS FASTINGPERFORMED BY: [employer] Kubi Mobi [facility] [id number] (94190) ALT (SGPT) 31 [iU]/L (Normal) Range: 0-32 [...] Glucose, Serum 98 mg/dL (Normal) Range: 65-99 85-Fmp-040402:48 CBC WITH MANUAL DIFF Comments: PATIENT WAS FASTINGPERFORMED BY: [facility] Lyitws7520 [facility] [id number] Information: [id number] (57582) Immature Grans (Abs) 0.0 {x10E3/uL} (Normal) Range: [...] (Normal) Range: 4.0-10.5 :41 HgA1C , Office (60047) HgA1C , Office 6.0 % (Normal) Range: 4.6 - 7.1 :41 Blood Glucose , Office (18502) Blood Glucose , Office 94 (Normal) :46 [...] on 04/11/12 1046 by Chau DOWELL by Avelina PIEDRA,Augusto on 04/11/12 1801 Sign by: Augusto Quan MD 8-Xgz-615894:21 CHEST WITH CONTRAST Radiology Report See Note [...] Faulkner M.D.April 06, 2012 at 2:30:12 PM [id number] Signed BRENT/BRENT If you are the referring physician and would like to consult with theradiolog ist who provided this interpretation, please contact Jamie Duval at . If this radiologist is unavailable,youwill be directed to another radiologist to assist. If you are a patie nt with a question regarding this report, pleasecontactyour referring physician directly. Professional Interpretation Provided By: Wapp[employer]app, Phone , These documents cont ain legally [...] 04/06/12 1355 by Eduard Faulkner MDTranscribed on 04/06/12 1435 by ITS IMPORTSign by Eduard Faulkner MD on 04/06/12 1436 Sign by: Eduard Faulkner MD DDIMQ 0.36 {FEUug/mL} Range: 0.22-0.48 211:44 (Normal) Comments: NORMAL D-Dimer level indicates no DVT or PE. Mononucleosis Test, Negative Comments: PATIENT NOT FASTINGPERFORMED BY: LabCoKindred Hospital at MorrisHeseap3949 [facility] [id number] 211:44 Qual (Normal) Comments: The sensitivity of Heterophile antibody testing is 80-90%.Xin Curtis IgM testing offers higher sensitivity. :44 TSH (60974) Comments: PATIENT NOT FASTINGPERFORMED BY: [employer] Jyseey3718 [facility] [id number] TSH 1.130 {uIU/mL} (Normal) Range: 0.450-4.500 :44 METABOLIC PANEL, COMPREHENSIVE Comments: PATIENT NOT FASTINGPERFORMED BY: [employer] Vxehwq4209 [facility] [id number] (42922) ALT (SGPT) 30 [iU]/L (Normal) Range: 0-40 [...] Glucose, Serum 74 mg/dL (Normal) Range: 65-99 :44 CBC WITH MANUAL DIFF (54494) Comments: PATIENT NOT FASTINGPERFORMED BY: [employer] Ywnmek0475 [facility] [id number] Immature Grans (Abs) 0.0 {x10E3/uL} (Normal) Range: [...] 3.77-5.28 WBC 8.6 {x10E3/uL} (Normal) Range: 4.0-10.5 9-Axq-872676:25 Urinalysis, Office (51715) UA - BILIRUBIN Negative (Normal) UA - BLOOD Hemolyzed Small (Normal) UA - GLUCOSE Negative (Normal) UA - KETONES Negative mg/dL (Normal) UA - LEUKOCYTE ESTERASE Negative (Normal) UA - NITRITE Negative (Normal) UA - PH 8.0 (Normal) UA - PROTEIN Negative mg/dL (Normal) UA - SPECIFIC GRAVITY 1.015 (Normal) URINE UROBILINGN EDITH TIMED Normal mg/dL (Normal) 5-Ljn-233004:15 URINE ENRIQUE CULTURE-EDITH COL Comments: PATIENT NOT FASTINGPERFORMED BY: [facility] Zbzjgo4478 [facility] [id number] Information: SRC:UR [id number] COUNT (13152) Result 1 MUG (Normal) Comments: Mixed urogenital floraGreater than 100,000 colony forming units per mL Urine Culture,Comprehensive Final report (Normal) 6-Tit-111476:16 ENRIQUE CULTURE-OTHER (74758) Comments: PATIENT NOT FASTINGPERFORMED BY: [facility] Puvtbm6300 [facility] [id number] Information: SRC:THRT [id number] Result 1 RRF (Normal) Comments: Routine respiratory corina Upper Respiratory Culture Final report (Normal) 6-Dap-898968:24 Rapid Strep Test, Office (92112) Rapid Strep Test, Office Negative (Normal) 79-Pxz-701794:52 CBC with manual diff Comments: PATIENT NOT FASTINGPERFORMED BY: [facility] Kgksiw9615 [facility] [id number] Information: [id number] (69038) Immature Grans (Abs) 0.0 {x10E3/uL} (Normal) Range: [...] 3.77-5.28 WBC 8.5 {x10E3/uL} (Normal) Range: 4.0-10.5 35-Lif-628567:52 Metabolic Panel, Comprehensive Comments: PATIENT NOT FASTINGPERFORMED BY: [facility] Glaywv0082 [facility] [id number] (49443) ALT (SGPT) 28 [iU]/L (Normal) Range: 0-40 [...] Glucose, Serum 94 mg/dL (Normal) Range: 65-99 23-Rgn-649142:33 URINE ENRIQUE CULTURE-EDITH COL Comments: PATIENT NOT FASTINGPERFORMED BY: [facility]Critical [facility] hospital [id number] Information: SRC:UR [id number] COUNT (06402) Result 1 NG36 (Normal) Comments: No growth in 36 - 48 hours. Urine Culture,Comprehensive Final report (Normal) 89-Wfz-915501:37 Urinalysis, Office (69239) UA - BILIRUBIN Negative (Normal) UA - BLOOD Hemolyzed Small (Normal) UA - GLUCOSE Negative (Normal) UA - KETONES Negative mg/dL (Normal) UA - LEUKOCYTE ESTERASE Negative (Normal) UA - NITRITE Negative (Normal) UA - PH 6.0 (Normal) UA - PROTEIN Negative mg/dL (Normal) UA - SPECIFIC GRAVITY 1.025 (Normal) URINE UROBILINGN EDITH TIMED Normal mg/dL (Normal) 35-Bsq-609249:00 Microscopic Examination Comments: PATIENT WAS FASTINGPERFORMED BY: TruLeaf6370 [facility]SongToYouCritical access hospital [id number] Bacteria None seen (Normal) Epithelial Cells (non renal) 0-10 {/hpf} (Normal) Range: 0 - 10 RBC None seen {/hpf} (Normal) Range: 0 - 3 WBC 0-5 {/hpf} (Normal) Range: 0 - 5 84-Mbd-107777:00 Vitamin D Hydroxy (15808) Comments: PATIENT WAS FASTINGPERFORMED BY: [employer]Leaf6370 [facility] [id number] Vitamin D, 25-Hydroxy 22.5 ng/mL (Abnormal) Range: 30.0-100.0 Comments: Vitamin D deficiency has been defined by the Evans ofMedicine and an Endocrine Society practice guideline as alevel of serum 25-OH vitamin D less than 20 ng/mL (1,2).The Endocrine Society went on to further define vitamin Dinsufficiency as a level between 21 and 29 ng/mL (2).1. IOM (Evans of Medicine). 2010. Dietary reference intakes for calcium and D. [place]: The National Academies Press.2. Deepak MF, Angelito ARANDA, Adan YEBOAH, et al. Evaluation, treatment, and prevention of vitamin D deficiency: an Endocrine Society clinical practice guideline. JCEM. 2010; 96(7):1911-30. : TSH (05508) Comments: PATIENT WAS FASTINGPERFORMED BY: [facility] [id number] TSH 1.020 {uIU/mL} (Normal) Range: 0.450-4.500 : URINALYSIS, W/ MICRO (41526) Comments: PATIENT WAS FASTINGPERFORMED BY: ClearSaleing70 [facility]YouCritical access hospital [id number] Microscopic Examination See below: (Normal) Microscopic Examination MICRON (Normal) Comments: Microscopic follows if indicated. Nitrite, Urine Negative (Normal) Urobilinogen,Semi-Qn 0.2 mg/dL (Normal) Range: 0.0-1.9 Bilirubin Negative (Normal) Occult Blood Negative (Normal) Ketones Negative (Normal) Glucose Negative (Normal) Protein Negative (Normal) WBC Esterase Negative (Normal) Appearance Clear (Normal) Urine-Color Yellow (Normal) pH 6.0 (Normal) Range: 5.0-7.5 Specific [facility] 1.006 (Normal) Range: 1.005-1.030 : MICROALBUMIN: CREATININE RATIO Comments: PATIENT WAS FASTINGPERFORMED BY: [employer]70 [facility]YouCritical access hospital [id number] (22669) AND (41550) Microalb/Creat Ratio 7.8 {mg/g_creat} (Normal) Range: 0.0-30.0 Creatinine, Urine 24.3 mg/dL (Normal) Range: 15.0-278.0 Microalbumin, Urine 1.9 ug/mL (Normal) Range: 0.0-17.0 :00 METABOLIC PANEL, COMPREHENSIVE Comments: PATIENT WAS FASTINGPERFORMED BY: [employer]Saleing70 [facility] [id number] (90256) ALT (SGPT) 34 [iU]/L (Normal) Range: 0-40 [...] Glucose, Serum 93 mg/dL (Normal) Range: 65-99 06-Zrm-195013:00 CBC WITH MANUAL DIFF Comments: PATIENT WAS FASTINGPERFORMED BY: JENNA [facility] Vllljk1380 [facility] [id number] Information: [id number] (64940) Immature Grans (Abs) 0.0 {x10E3/uL} (Normal) Range: [...] change WBC 9.6 {x10E3/uL} (Normal) Range: 4.0-10.5 08-Nal-165193:00 LIPID PANEL (67757) Comments: PATIENT WAS FASTINGPERFORMED BY: [facility]CoKindred Hospital at MorrisQbnadl2501 [facility] [id number] LDL/HDL Ratio 1.8 {ratio_units} (Normal) Range: 0.0-3.2 LDL Cholesterol Calc 109 mg/dL (Abnormal) Range: 0-99 VLDL Cholesterol Abran 38 mg/dL (Normal) Range: 5-40 HDL Cholesterol 60 mg/dL (Normal) Comments: According to ATP-III Guidelines, HDL-C >59 mg/dL is considered anegative risk factor for CHD. Triglycerides 189 mg/dL (Abnormal) Range: 0-149 Cholesterol, Total 207 mg/dL (Abnormal) Range: 100-199 44-Ajx-663724:39 HgA1C , Office (98674) HgA1C , Office 6.0 % (Normal) Range: 4.6 - 7.1 :39 Blood Glucose , Office (95845) Blood Glucose , Office 100 (Normal) 05-Jan-20128:26 BILAT SCRN DIGITAL & CAD Radiology Report [...] EDTElectronically Signed GP/GP Professional Interpretation Provided By: [facility], , Fax To consult with a radiologist regarding this report, please call our [id number] line @ Dictated on 01/05/12 0838 by Cristian Sanders MD on 01/05/12 0916 by ITS IMPOR TSign by Kale Sanders MD on 01/05/12916 Sign by: Kale Sanders MD; ADDENDA: has f/u on 01/10/1224-Nov-201178-Hou-350853:35 SPINE, LUMBAR (ROUTINE) Radiology Report See Note [...] with mild impingement upon the bilateral descending A1ehfwv ro ots. The intervertebral neural foramina remain [...] EDTElectronically Signed FS/FS Professional Interpretation Provided By: [facility], , To consult with a radiologist regarding this report, please call our [id number] line @ Dictated on 11/24/11 1041 by Surendra Schmitt DOTranscribed on 11/24/11 1353 by ITS IMPORTSign by Surendra Schmitt DO on 11/24/11 1354 Sign by: Surendra Schmitt DO 06-Oct-20119:57 T4, FREE (THYROXINE) Comments: SEND TO DR MONTES DE OCA; PATIENT NOT FASTINGPERFORMED BY: [facility]6370 [facility] [id number] Information: [id number] (33142) T4,Free(Direct) 1.23 ng/dL (Normal) Range: 0.82-1.77 :57 T3, FREE (TRIDOTHYRONINE) (46284) Comments: SEND TO DR MONTES DE OCA; PATIENT NOT FASTINGPERFORMED BY: [facility]CoKindred Hospital at MorrisMolowl8196 [facility] [id number] Triiodothyronine,Free,Serum 4.0 pg/mL (Normal) Range: 2.0-4.4 :57 TSH (29022) Comments: ALSO SEND TO DR MONTES DE OCA; PATIENT NOT FASTINGPERFORMED BY: LabCoKindred Hospital at MorrisMoqjjy7911 [facility] [id number] TSH 1.220 {uIU/mL} (Normal) Range: 0.450-4.500 :40 HgA1C , Office (62953) HgA1C , Office 6.1 % (Normal) Range: 4.6 - 7.1 :40 Blood Glucose , Office (30975) Blood Glucose , Office 101 (Normal) 58-Huy-289945:26 CBCD,SMEAR DIFF RED CELL MORPH SeeNote {NORMAL} [...] 4.2-5.4 WBC 7.0 K/mm3 (Normal) Range: 4.4-11.0 65-Onu-150888:26 COMP METABOLIC GAP 7 (Normal) Range: 5-15 [...] 7-18 GLU 109 mg/dL (Normal) Range: 70-110 64-Ynz-836172:26 COMPLETE UA MUCUS, URINE 0 SEEN {/hpf} [...] NEGATIVE CLARITY CLEAR (Normal) COLOR STRAW (Normal) 30-Maq-468701:26 LIPID VLDL 36 mg/dL (Normal) Range: 5-40 [...] (Normal) Range: 0.358-3.74 6 :2 VIT D,25 54063 34.4 ng/mL (Normal) Range: 30.0-100.0 6 Comments: Vitamin D deficiency has been defined by the Evans ofMedicine and an Endocrine Society practice guideline as alevel of serum 25-OH vitamin D less than 20 ng/mL (1,2).The Endocrine Society went on to further define vitamin Dinsufficiency as a level between 21 and 29 ng/mL (2).1. IOM (Evans of Medicine). 2010. Dietary reference intakes for calcium and D. [place]: The National Academies Press.2. Deepak MF, Angelito NC, Adan YEBOAH, et al. Evaluation, treatment, and prevention of vitamin D deficiency: an Endocrine Society clinical practice guideline. JCEM. 2010; 96(8): 1331-30.Performed at: - [facility] [id number] Director: Judith Luevano MD, Phone: [phone] HgA1C , Office (30197) HgA1C , Office 5.7 % (Normal) Range: 4.6 - 7.1 :54 Blood Glucose , Office (63878) Blood Glucose , Office 92 (Normal) :02 [...] 7-18 GLU 95 mg/dL (Normal) Range: 70-110 15-Rqt-714532:02 COMPLETE UA MUCUS, URINE 0 SEEN {/hpf} [...] 200-240 mg/dL Borderline >240 mg/dL High Risk 49-Bto-674762:02 MICROALB:CRE UR MALB:CREAT 11.6 {mg/g_CRE} (Normal) MICROALBUMIN,UR 6.2 mg/L (Normal) UR CREAT 53.4 mg/dL (Normal) :12 FECAL OCCULT HGB ASSAY- tubes sent home (82228) FECAL OCCULT HGB ASSAY, QUAL, 1-3 SIMULTANEOU neg (Normal) :13 HgA1C , Office (01531) HgA1C , Office 6.6 % (Normal) Range: 4.6 - 7.1 :13 Blood Glucose , Office (50977) Blood Glucose , Office 108 (Normal) :32 LOWER EXT.JOINT ONLY (ROUTINE) Radiology Report See [...] series 6 image 8). There is diffuse, szkvjgsugxh63% thickness articular cartil age loss of the [...] ITS IMPORTSign by Leonard Allen MD on 01/11/112138 Sign by: Leonard Allen MD :48 KNEE,4 OR MORE VIEWS Radiology Report See [...] Moderate-sized joint effusion. Dictated on 1445 by Teofilo IVAN MDscribed on 01/06/11 0538 by ITS IMPORTSign by JOSHUA IVAN MD on 01/06/11537 Sign by: JOSHUA IVAN MD 7-Mby-410987:26 URINE ENRIQUE CULTURE-IDENTIFICATN Comments: PATIENT NOT FASTINGPERFORMED BY: [facility]CoKind[facility] at MorrisTrjrqh1075 [facility] [id number] Information: [id number] (96320) Result 1 MUG (Normal) Comments: Mixed urogenital flora50,000-100,000 colony forming units per mL Urine Final report (Normal) Culture,Comprehensive 31-Dec-20109:59 Urinalysis, Office (19987) UA - BILIRUBIN Negative (Normal) UA - BLOOD Hemolyzed Small (Normal) UA - GLUCOSE Negative (Normal) UA - KETONES Negative mg/dL (Normal) UA - LEUKOCYTE ESTERASE Negative (Normal) UA - NITRITE Negative (Normal) UA - PH 6.5 (Normal) UA - PROTEIN Negative mg/dL (Normal) UA - SPECIFIC GRAVITY 1.025 (Normal) URINE UROBILINGN EDITH TIMED Normal mg/dL (Normal) 10-Lso-952119:25 Urinalysis, Office (51954) UA - BILIRUBIN Negative (Normal) UA - BLOOD Hemolyzed Moderate (Normal) UA - GLUCOSE Negative (Normal) UA - KETONES Negative mg/dL (Normal) UA - LEUKOCYTE ESTERASE Negative (Normal) UA - NITRITE Negative (Normal) UA - PH 5.0 (Normal) UA - PROTEIN Negative mg/dL (Normal) UA - SPECIFIC GRAVITY 1.020 (Normal) URINE UROBILINGN EDITH TIMED Normal mg/dL (Normal) 43-Zvt-164473:36 URINE ENRIQUE CULTURE-EDITH COL Comments: PATIENT NOT FASTINGPERFORMED BY: JENNA [facility] Htrjme4185 [facility] [id number] Information: SRC:UR [id number] COUNT (85118) Result 1 NG36 (Normal) Comments: No growth in 36 - 48 hours. Urine Culture,Comprehensive Final report (Normal) 76-Ang-927306:25 Urinalysis, Office (54808) UA - BILIRUBIN Negative (Normal) UA - BLOOD Hemolyzed Small (Normal) UA - GLUCOSE Negative (Normal) UA - KETONES Negative mg/dL (Normal) UA - LEUKOCYTE ESTERASE Negative (Normal) UA - NITRITE Negative (Normal) UA - PH 6.0 (Normal) UA - PROTEIN Negative mg/dL (Normal) UA - SPECIFIC GRAVITY 1.010 (Normal) URINE UROBILINGN EDITH TIMED Normal mg/dL (Normal) 6-Zng-012473:26 TSH (18059) Comments: PATIENT NOT FASTINGPERFORMED BY: CB [facility] Pxvqjr0944 [facility] [id number] Information: [id number] TSH 1.100 {uIU/mL} (Normal) Range: 0.450-4.500 :05 TSH (53305) Comments: PATIENT NOT FASTINGPERFORMED BY: Lab[address] [id number] Information: [id number] TSH 1.240 {uIU/mL} (Normal) Range: 0.450-4.500 :23 TSH (23525) Comments: PATIENT NOT FASTINGPERFORMED BY: [address] [id number] Information: [id number] TSH 1.020 {uIU/mL} (Normal) Range: 0.450-4.500 :55 TSH (62922) Comments: PATIENT NOT FASTINGPERFORMED BY: [place] 0242770 [facility] [id number] Information: [id number] TSH 1.750 {uIU/mL} (Normal) Range: 0.450-4.500 :21 Microscopic Examination Comments: PATIENT WAS FASTINGPERFORMED BY: [place] 0242770 [facility] [id number] BY: [address] [id number] Bacteria None seen (Normal) Mucus Threads Present (Normal) Epithelial Cells (non renal) >10 {/hpf} (Abnormal) Range: 0 - 10 RBC 0-3 {/hpf} (Normal) Range: 0 - 3 WBC 0-5 {/hpf} (Normal) Range: 0 - 5 :21 IRON BINDING CAPACITY Comments: PATIENT WAS FASTINGPERFORMED BY: [place] 0242770 [facility] [id number] BY: [address] [id number] (TIBC) (92447) Iron Saturation 31 % (Normal) Range: 15-55 Iron, Serum 107 ug/dL (Normal) Range: 35-155 UIBC 237 ug/dL (Normal) Range: 150-375 Iron Bind.Cap.(TIBC) 344 ug/dL (Normal) Range: 250-450 17-Ecw-313723:21 FERRITIN (52205) Comments: PATIENT WAS FASTINGPERFORMED BY: [employer] Shozaq4861 [facility] [id number] BY: [address] [id number] Ferritin, Serum 202 ng/mL (Abnormal) Range: 13-150 67-Jix-008856:21 ZINC, BLOOD (32874) Comments: PATIENT WAS FASTINGPERFORMED BY: [employer] [id number] BY: [address] [id number] Zinc, Plasma or Serum 116 ug/dL (Normal) Range: 70-150 Comments: Detection Limit = 5 91-Hcq-594440:21 MICROALBUMIN: CREATININE Comments: PATIENT WAS FASTINGPERFORMED BY: [employer] IncKindred Hospital at MorrisLzsyar[address] [place] [address] [id number] BY: [address] [id number] RATIO (53774) AND (78122) Microalb/Creat Ratio 6.8 {mg/g_creat} (Normal) Range: 0.0-30.0 Creatinine, Urine 106.8 mg/dL (Normal) Range: 15.0-278.0 Microalbumin, Urine 7.3 ug/mL (Normal) Range: 0.0-17.0 91-Aaq-675727:21 URINALYSIS, W/ MICRO Comments: PATIENT WAS FASTINGPERFORMED BY: [employer] [id number] BY: [address] [id number] (33702) Microscopic Examination See below: (Normal) Nitrite, Urine Negative (Normal) Urobilinogen,Semi-Qn 0.2 mg/dL (Normal) Range: 0.0-1.9 Bilirubin Negative (Normal) Glucose Negative (Normal) Ketones Negative (Normal) Occult Blood Trace (Abnormal) Protein Negative (Normal) Appearance Clear (Normal) pH 5.5 (Normal) Range: 5.0-7.5 Urine-Color Yellow (Normal) WBC Esterase Negative (Normal) Specific [facility] 1.018 (Normal) Range: 1.005-1.030 96-Jcn-735693:21 METABOLIC PANEL, Comments: PATIENT WAS FASTINGPERFORMED BY: CB [facility] Rfpmmz7045 [facility] [id number] BY: BN [facility] Hsfuiafsmh2558 [facility] [id number] COMPREHENSIVE (40780) Alkaline Phosphatase, S 86 [iU]/L (Normal) Range: [...] Glucose, Serum 97 mg/dL (Normal) Range: 65-99 66-Ofy-541728:21 LIPID PANEL (60230) Comments: PATIENT WAS FASTINGPERFORMED BY: [employer] [facility] [id number] BY: [employer] [id number] LDL Cholesterol Calc 97 mg/dL (Normal) Range: 0-99 LDL/HDL Ratio 2.2 {ratio_units} (Normal) Range: 0.0-3.2 VLDL Cholesterol Abran 49 mg/dL (Abnormal) Range: 5-40 HDL Cholesterol 45 mg/dL (Normal) Comments: According to ATP-III Guidelines, HDL-C >59 mg/dL is considered anegative risk factor for CHD. Triglycerides 246 mg/dL (Abnormal) Range: 0-149 Cholesterol, Total 191 mg/dL (Normal) Range: 100-199 42-Hds-164253:21 CBC WITH MANUAL DIFF Comments: PATIENT WAS FASTINGPERFORMED BY: [employer] Gpdvqg0570 [facility] [id number] BY: [employer] [id number] Inf ormation: [id number] PSPUN (10581) Baso (Absolute) 0.0 {x10E3/uL} (Normal) Range: 0.0-0.2 [...] 3.80-5.10 WBC 10.5 {x10E3/uL} (Normal) Range: 4.0-10.5 33-Iah-670803:21 TSH (01231) Comments: PATIENT WAS FASTINGPERFORMED BY: [employer] [facility] [id number] BY: [employer] [id number] TSH 0.928 {uIU/mL} (Normal) Range: 0.450-4.500 84-Fvj-270515:21 CALCIFIDIOL (28576) VIT D Comments: PATIENT WAS FASTINGPERFORMED BY: [employer]6370 [facility] [place] [id number] BY: [address] [id number] Vitamin D, 25-Hydroxy 31.1 ng/mL (Abnormal) Range: 32.0-100.0 Comments: Recent studies consider the lower limit of 32.0 ng/mL to be athreshold for optimal health.Eugene VELÁZQUEZ. J Nutr. 2004;135(2):317-22. :47 HgA1C , Office (06061) HgA1C , Office 6.3 % (Normal) Range: 4.6 - 7.1 :47 Blood Glucose , Office (57624) Blood Glucose , Office 129 (Normal) :52 DEXA BONE DENSITY STUDY (HP) Radiology See Note Comments: REPORT CLINICAL:Tobacco use. Osteoporosis EXAMINATION:DUAL ENERGY X-RAY ABSORPTIOMETRY / DEXA. TECHNIQ Report (Normal) UE:Bone Density Measurements (BMD) of lumbar spine and bilateral hips wereobtained using a [employer] scanner.. COMPARISON:June 25, 2008 FINDINGS: Lumbar Spine (L1-L4): g/cm2 (1.079) / T-score (-0.8) / Z-score (0.7)Left Femur Total: g/cm2 (1.090) / T- score (0.7) / Z-score (1.8)Right Femur Total: g/cm2 (1.087) / T-score (0.6) / Z-score (1.8) Bone mineral densities on most recent examination were: Lumbar Spine (L1-L4): [...] by MALA VOGT on 07/23/101824 Sign by: MALA VOGT 81-Xhj-82563:47 Vitamin D Hydroxy (18358) Comments: PATIENT NOT FASTINGPERFORMED BY: [facility]6370 [facility] [id number] Information: [id number] Vitamin D, 25-Hydroxy 15.0 ng/mL (Abnormal) Range: 32.0-100.0 Comments: Recent studies consider the lower limit of 32.0 ng/mL to be athreshold for optimal health.Eugene VELÁZQUEZ. J Nutr. 2004;135(2):317-22. 35-Ffd-03633:25 FECAL OCCULT- Tubes sent home (13754) FECAL OCCULT HGB ASSAY, QUAL, 1-3 SIMULTANEOU negative (Normal) 08-Qkn-52827:00 BILAT SCRN DIGITAL & CAD Radiology Report [...] by MICHELLE POOLETranscribed on 06/18/10 1032 by LUAN SALDAÑASONSign by KM POOLE on 06/24/10 1642 Sign by: MICHELLE POOLE :26 TSH (44537) Comments: PATIENT WAS FASTINGPERFORMED BY: [employer]Leaf6370 [facility]YouCritical access hospital [id number] TSH 1.240 {uIU/mL} (Normal) Range: 0.450-4.500 :26 MICROALBUMIN: CREATININE RATIO Comments: PATIENT WAS FASTINGPERFORMED BY: [employer]Leaf6370 [facility]SongToYouCritical access hospital [id number] (43833) AND (34983) Microalb/Creat Ratio 25.3 {mg/g_creat} (Normal) Range: 0.0-30.0 Creatinine, Urine 155.5 mg/dL (Normal) Range: 15.0-278.0 Microalbumin, Urine 39.4 ug/mL (Abnormal) Range: 0.0-17.0 :26 METABOLIC PANEL, COMPREHENSIVE Comments: PATIENT WAS FASTINGPERFORMED BY: [employer]70 [facility]Song[facility]YouCritical access hospital [id number] (27870) ALT (SGPT) 38 [iU]/L (Normal) Range: 0-40 [...] mg/dL (Normal) Range: 65-99 :26 LIPID PANEL (37155) Comments: PATIENT WAS FASTINGPERFORMED BY: LabCoKindred Hospital at MorrisZnrrpc4247 [facility] [id number] LDL/HDL Ratio 3.9 {ratio_units} (Abnormal) Range: 0.0-3.2 [...] MANUAL DIFF Comments: PATIENT WAS FASTINGPERFORMED BY: JENNA LabCoKindred Hospital at MorrisEztccr8858 [facility] [id number] Information: [id number] (95155) Baso (Absolute) 0.0 {x10E3/uL} (Normal) Range: 0.0-0.2 [...] (Normal) Range: 4.0-10.5 :49 HgA1C , Office (83372) HgA1C , Office 5.8 % (Normal) Range: 4.6 - 7.1 :49 Blood Glucose , Office (06279) Blood Glucose , 100 (Normal) Office :0 ACTH, Plasma 11 pg/mL (Normal) Comments: PERFORMED BY: JENNA [facility] Gjwezp9762 [facility] [id number] Range: 6-48 :00 Cortisol, Urinary Free Comments: Clinical Information: 10/28@8AM 10/29@630AM PERFORMED BY: [facility] Gjakfi1407 [facility] [id number] Cortisol,F,ug/24hr,U 16 {ug/24_hr} (Normal) Range: 0-50 Cortisol,F,ug/L,U 7 ug/L (Normal) :23 BILAT SCRN DIGITAL & CAD Radiology Report See Note (Normal) Comments: Exam Number: [id number] DIGITAL SCREENING MAMMOGRAMS WITH CAD COMPARISON STUDIESJuly 2006, and May 30, 2004. TECHNIQUERoutine craniocaudal and mediolateral oblique views are obtained [facility] using digital technique. CAD is also performed. [...] wereals o examined with computer-aided detection software ([employer] Reported By: ENDY LOUIS M.D. :22 DEXA BONE DENSITY STUDY (HP) Radiology Report See Note (Normal) Comments: Exam Number: [id number] BONE DENSITOMETRY HISTORYPost menopausal. TECHNIQUE Bone densitometry [...] Reported By: MICHELLE POOLE M.D. :56 TSH (46059) Comments: PATIENT WAS FASTINGPERFORMED BY: [employer]af6370 [facility] [id number] TSH 1.535 {uIU/mL} (Normal) Range: 0.450-4.500 :56 CBC WITH MANUAL DIFF (30566) Comments: PATIENT WAS FASTINGClinical Information: ADD DRAW FEE [id number] ADD J [id number] PERFORMED BY: [employer] Holdingslin6370 [facility] [id number] Baso (Absolute) 0.0 {x10E3/uL} (Normal) Range: 0.0-0.2 [...] PANEL, COMPREHENSIVE Comments: PATIENT WAS FASTINGPERFORMED BY: LabCoKindred Hospital at MorrisFpifrs3171 [facility] [id number] 51257) A/G Ratio 1.6 (Normal) Range: 1.1-2.5 Albumin, [...] Serum 97 mg/dL (Normal) Range: 65-99 If -Chilean >59 mL/min/1.73 Comments: Note: Persistent reduction for [...] Sodium, Serum 143 mmol/L (Normal) Range: 135-145 :56 LIPID PANEL (89421) Comments: PATIENT WAS FASTINGPERFORMED BY: [facility]cheCritical access hospital [id number] Cholesterol, Total 143 mg/dL (Normal) Range: 100-199 HDL Cholesterol 43 mg/dL (Normal) Comments: According to ATP-III Guidelines, HDL-C >59 mg/dL is considered anegative risk factor for CHD. LDL Cholesterol Calc 74 mg/dL (Normal) Range: 0-99 LDL/HDL Ratio 1.7 {ratio_units} (Normal) Range: 0.0-3.2 Triglycerides 132 mg/dL (Normal) Range: 0-149 VLDL Cholesterol Abran 26 mg/dL (Normal) Range: 5-40 :52 HgA1C , Office (24319) Comments: done km HgA1C , Office 5.7 % (Normal) Range: 4.6 - 7.1 :52 Blood Glucose , Office (14218) Comments: done km Blood Glucose , Office 105 (Normal) :50 MICROALBUMIN: CREATININE RATIO Comments: PATIENT NOT FASTINGClinical Information: ADD [id number] PERFORMED BY: [employer] Etnokg4494 [facility] HospitalLinux VoiceCritical access hospital [id number] (12335) AND (02440) Microalbum.,U,Random 5.5 ug/mL (Normal) Range: 0.0-17.0 :28 Blood Glucose , Office (56604) Blood Glucose , Office 102 (Normal) :28 HgA1C , Office (44518) HgA1C , Office 5.7 % (Normal) Range: 4.6 - 7.1 81-Dcr-612697:28 GLUP 143 mg/dL (Abnormal) Comments: GLU,2HPPG 75gm GLUC PPG GLUP from 0620:K65089L. Comments: Glucose result from 140 to <200 mg/dL suggestsIMPAIRED GLUCOSE HOMEOSTASIS per A.D.A. criteria. 03-Qxb-817655:58 Hepatic Function Panel (7) Comments: PERFORMED BY: [facility]Oz[facility] [id number] Albumin, Serum 4.6 g/dL (Normal) Range: 3.6-4.8 Alkaline Phosphatase, S 97 [iU]/L (Normal) Range: 25-165 ALT (SGPT) 28 [iU]/L (Normal) Range: 0-40 AST (SGOT) 24 [iU]/L (Normal) Range: 0-40 Bilirubin, Direct 0.17 mg/dL (Normal) Range: 0.00-0.40 Bilirubin, Total 0.8 mg/dL (Normal) Range: 0.1-1.2 Protein, Total, Serum 7.5 g/dL (Normal) Range: 6.0-8.5 :58 Lipid Panel With LDL/HDL Comments: PERFORMED BY: [employer] [facility] [id number] Ratio Cholesterol, Total 166 mg/dL (Normal) Range: 100-199 HDL Cholesterol 49 mg/dL (Normal) Range: 40-59 LDL Cholesterol Calc 82 mg/dL (Normal) Range: 0-99 LDL/HDL Ratio 1.7 {ratio_units} (Normal) Range: 0.0-3.2 Triglycerides 177 mg/dL (Abnormal) Range: 0-149 VLDL Cholesterol Abran 35 mg/dL (Normal) Range: 5-40 :09 Influenza A+B Ag, EIA Comments: Clinical Information: SRC:NL PERFORMED BY: [employer] [facility] [id number] Influenza A Ag, EIA Negative (Normal) Influenza B Ag, EIA Negative (Normal) 34-Iyl-490249:10 [facility] 6486 13.8 {Units} (Normal) Range: 0.0-20.0 Comments: Negative 0.0 - 20.0 Equivocal 20.1 - 24.9 Positive >24.9 . Parietal Cell Antibodies are found in 90% of patients with pernicious anemia and 30% of first degree relatives with pernicious an emia.Performed At: [facility] [place], [place] [id number] 56-Yti-944382:43 Urinalysis, Office (26403) Comments: done km UA - BILIRUBIN Negative (Normal) UA - BLOOD Negative (Normal) UA - GLUCOSE Negative (Normal) UA - KETONES Negative mg/dL (Normal) UA - LEUKOCYTE ESTERASE Negative (Normal) UA - NITRITE Negative (Normal) UA - PH 7.0 (Normal) UA - PROTEIN Negative mg/dL (Normal) UA - SPECIFIC GRAVITY 1.010 (Normal) URINE UROBILINGN EDITH TIMED Normal mg/dL (Normal) :04 CBCD BASO% 0.5 % (Normal) Range: 0-1 [...] 11.6-14.6 WBC 7.8 K/mm3 (Normal) Range: 4.4-11.0 :04 COMP METABOLIC A/G 1.2 {RATIO} (Normal) Range: [...] mm/h (Normal) Range: 0-30 :04 INTR FACT 62923 SeeNote (Normal) Comments: Result: Negative Performed At: BNLab[address] [id number] :[id number] TSH 0.99 {uIU/mL} (Normal) Range: 0.34-4.82 [...] mg/dL VLDL 51 mg/dL (Abnormal) Range: 5-40 51-Eay-464539:00 CULTURE, URINE URINE CULTURE See Note (Normal) Comments: Predominant organism is a gram positive suraj, probableLacotobacillus species. COLONY COUNT 80,000- 100,000 ORGANISM 1: MIXED GRAM POSITIVE ORGANISMS 04-Wud-655086:59 Urinalysis, Office (19442) UA - BILIRUBIN Negative (Normal) UA - BLOOD Non Hemolyzed Trace (Normal) UA - GLUCOSE Negative (Normal) UA - KETONES Negative mg/dL (Normal) UA - LEUKOCYTE ESTERASE Negative (Normal) Comments: aw UA - NITRITE Negative (Normal) UA - PH 6.0 (Normal) UA - PROTEIN Negative mg/dL (Normal) UA - SPECIFIC GRAVITY 1.025 (Normal) URINE UROBILINGN EDITH TIMED Normal mg/dL (Normal) [id number] MAMM, BILAT SCRN DIGITAL & CAD Radiology Report See Note (Normal) Comments: Exam Number: [id number] MAMMOGRAPHY, BILATERAL SCREENING DIGITAL AND CAD HISTORYRoutine screening. Full field digital images were obtained in mediolateral oblique,craniocaudal and cleavage projections. CAD images were reviewed. [facility] There is moderately dense fibroglandular parenchyma present. [...] mammograms werealso examined with computer-aided detection software ([employer] Reported By: MICHELLE POOLE M.D. [id number] DEXA BONE DENSITY STUDY (HP) Radiology Report See Note (Normal) Comments: Exam Number: [id number] BONE DENSITOMETRY HISTORYPostmenopausal. TECHNIQUE Bone densitometry of [...] normal limits. Reported By: MICHELLE POOLE M.D. [id number] CBCD,SMEAR DIFF CELLS COUNTED 100 (Normal) EOS [...] 47-70 WBC 7.3 K/mm3 (Normal) Range: 4.4-11.0 :14 COMP METABOLIC A/G 1.2 {RATIO} (Normal) Range: [...] :14 TSH 0.87 {uIU/mL} (Normal) Range: 0.34-4.82 50-Dcu-286761:23 Urinalysis, Office ([id number]) Comments: ABN signed UA - BILIRUBIN Negative [...] 8.0 K/mm3 (Normal) Range: 4.4-11.0 :32 H.PYLORI [id number] < 0.9 U/mL (Normal) Range: 0.0-0.8 Comments: Negative <0.9 Indeterminate 0.9 - 1.0 Positive >1.0Performed At: [address] [id number] :32 LIPASE 188 U/L (Normal) Range: 114-286 :32 LIVER ALB 4.4 g/dL (Normal) Range: 3.4-5.0 ALK P 85 U/L (Normal) Range: 50-136 ALT 42 [iU]/L (Normal) Range: 30-65 AST 25 U/L (Normal) Range: 15-37 D BILI 0.10 mg/dL (Normal) Range: 0.00-0.30 T BILI 0.88 mg/dL (Normal) Range: 0.00-1.00 T PROT 7.7 g/dL (Normal) Range: 6.4-8.2 84-Gew-180916:32 LYTES CL 105 mmol/L (Normal) Range: 98-107 CO2 28.8 mmol/L (Normal) Range: 22.0-29.0 GAP 7 (Normal) Range: 5-15 K 4.1 mmol/L (Normal) Range: 3.5-5.1 NA 141 mmol/L (Normal) Range: 136-145 Plan of Care Name Dates Details Instructions Thyroid nodule : Reviewed Head Butler Letter Indication: Thyroid nodule Elevated blood-pressure reading [...] Indication: Reflux gastritis Thyroid nodule : Reviewed Head Butler Letter Indication: Thyroid nodule Bladder prolapse, female, acquired : Reviewed Head Butler Letter Indication: Bladder prolapse, female, acquired Diabetes [...] Carotid stenosis, bilateral Thyroid nodule : Reviewed Head Butler Letter Indication: Thyroid nodule Diabetes mellitus type [...] Indication: Aspiration pneumonia Aspiration pneumonia : Reviewed Head Butler Letter Indication: Aspiration pneumonia Reflux gastritis : [...] with no complications Thyroid nodule : Reviewed Head Butler Letter Indication: Thyroid nodule Sinusitis, acute : [...] annual wellness exam Thyroid nodule : Reviewed Head Butler Letter us up to date -- ses [...] (shortness of breath) on exertion : Reviewed Head Butler Letter Indication: SOB (shortness of breath) on [...] lumbar intervertebral disc without myelopathy : Reviewed Head Butler Letter: s/p one injection so far Indication: [...] Lab Indication: Hyperlipidemia Hair abnormality : Reviewed Head Butler Letter Indication: Hair abnormality GERD (gastroesophageal reflux [...] Indication: Mixed hyperlipidemia Dysphagia, unspecified : Reviewed Head Butler Letter Indication: Dysphagia, unspecified Abnormal glucose tolerance [...] Indication: Diverticulosis of colon Planned Observations CALCIFIDIOL (66367) VIT D 25Indication: Vitamin D deficiency, unspecified On: :41 Request TSH ([id number])Indication: Diabetes mellitus type II, controlled, with no complications On: :41 Request URINALYSIS, W/ MICRO ([id number])Indication: Diabetes mellitus type II, controlled, with no complications On: :41 Request MICROALBUMIN: CREATININE RATIO ([id number]) AND ([id number])Indication: Diabetes mellitus type II, controlled, with no complications On: :41 Request METABOLIC PANEL, COMPREHENSIVE ([id number])Indication: Diabetes mellitus type II, controlled, with no complications On: :41 Request LIPOPROTEIN, BLD, BY NMR ([id number])Indication: Mixed hyperlipidemia On: :41 Request CBC W/AUTO DIFF WBC ([id number])Indication: Diabetes mellitus type II, controlled, with no complications On: :41 Request HEPATIC FUNCTION PANEL ([id number])Indication: Elevated LFTs (Renamed from Elevated liver function tests) On: :42 Request HEPATITIS PANEL ([id number])Indication: Elevated LFTs (Renamed from Elevated liver function tests) On: :42 Request ANTIMITOCHONDRIAL ANTIBODY ([id number])Indication: Elevated LFTs (Renamed from Elevated liver function tests) On: :42 Request TRANSFERRIN ([id number])Indication: Elevated LFTs (Renamed from Elevated liver function tests) On: :42 Request GGT (GAMMA GLUTAMYLTRANSFERASE) ([id number])Indication: Elevated LFTs (Renamed from Elevated liver function tests) On: :42 Request FERRITIN ([id number])Indication: Elevated LFTs (Renamed from Elevated liver function tests) On: :42 Request CMV IGM ANTBDY ([id number])Indication: Elevated LFTs (Renamed from Elevated liver function tests) On: :42 Request CERULOPLASMIN ([id number])Indication: Elevated LFTs (Renamed from Elevated liver function tests) On: :42 Request ASM (ANTI SMOOTH MUSCLE ANTIBODY) ([id number])Indication: Elevated LFTs (Renamed from Elevated liver function tests) On: :42 Request ANTI-LIVER/KIDNEY MICROSOMAL ANTIBODY ([id number])Indication: Elevated LFTs (Renamed from Elevated liver function tests) On: :41 Request KRISTEL (ANTINUCLEAR ANTIBODY) ([id number])Indication: Elevated LFTs (Renamed from Elevated liver function tests) On: :41 Request METABOLIC PANEL, COMPREHENSIVE (62699)Indication: SOB (shortness of breath) On: 04-Aho-311194:59 Request FECAL OCCULT- Tubes sent home ([id number])Indication: Encounter for screening for malignant neoplasm of colon (Renamed from Special screening for malignant neoplasms, colon) On: 95-Ksf-871577:24 Request Urinalysis, Office (36745)Indication: Hot flashes On: :24 Request CBC WITH MANUAL DIFF (19692)Indication: Abnormal finding of blood chemistry, unspecified On: 0-Azp-609371:08 Request Lipid Panel (56163)Indication: Hyperlipidemia On: :04 Request HEPATIC FUNCTION PANEL (07320)Indication: Hyperlipidemia On: :04 Request FECAL OCCULT- Tubes sent home (22358)Indication: Encounter for screening for malignant neoplasm of colon (Renamed from Special screening for malignant neoplasms, colon) On: 32-Ugu-344618:05 Request CALCIFIDIOL (91572) VIT D 25Indication: Vitamin D deficiency, unspecified On: : Request LIPID PANEL (80577)Indication: Mixed hyperlipidemia On: Request LIPID PANEL (47979)Indication: Mixed hyperlipidemia On: Request ZVLWM-GEYWNQHPDOJ-KUAWG ([id number])Indication: Fatty liver On: Request PT (Prothrobim Time) ([id number])Indication: Fatty liver On: Request TSH ([id number])Indication: Diabetes mellitus type II, controlled, with no complications On: Request URINALYSIS, W/ MICRO ([id number])Indication: Diabetes mellitus type II, controlled, with no complications On: Request MICROALBUMIN: CREATININE RATIO ([id number]) AND (72040)Indication: Diabetes mellitus type II, controlled, with no complications On: : Request METABOLIC PANEL, COMPREHENSIVE ([id number])Indication: Diabetes mellitus type II, controlled, with no complications On: Request CBC W/AUTO DIFF WBC ([id number])Indication: Diabetes mellitus type II, controlled, with no complications On: : Request VEDAC-UEYYPSATONE-LPWHU ([id number])Indication: Fatty liver On: :30 Request PTT (Activated Partial Thromboplastin Time) ([id number])Indication: Fatty liver On: Request PT (Prothrobim Time) (99690)Indication: Fatty liver On: : Request CALCIFIDIOL (92096) VIT D 25Indication: Vitamin D deficiency, unspecified On: Request URINALYSIS, W/ MICRO ([id number])Indication: Diabetes mellitus type II, controlled, with no complications On: Request MICROALBUMIN: CREATININE RATIO (51881) AND ([id number])Indication: Diabetes mellitus type II, controlled, with no complications On: Request METABOLIC PANEL, COMPREHENSIVE ([id number])Indication: Diabetes mellitus type II, controlled, with no complications On: Request LIPID PANEL (31404)Indication: Hyperlipidemia On: Request CBC with auto diff ([id number])Indication: Diabetes mellitus type II, controlled, with no complications On: : Request D-Dimer ([id number])Indication: SOB (shortness of breath) on exertion On: 69-Qot-29092:55 Request REVERSE TRIDOTHYRONINE ([id number])Indication: Thyroid nodule On: :56 Request TSH ([id number])Indication: Thyroid nodule On: :55 Request TSH ([id number])Indication: FATIGUE On: :52 Request SED RATE ERYTHROCYTE ([id number])Indication: FATIGUE On: :52 Request RHEUMATOID FACTOR-QUANT (86992)Indication: FATIGUE On: 36-Jwb-90027:52 Request C-REACTIVE PROTEIN ([id number])Indication: FATIGUE On: 98-Jaq-44511:52 Request KRISTEL (ANTINUCLEAR ANTIBODY) ([id number])Indication: FATIGUE On: :52 Request CCP ANTIBODY ([id number])Indication: Pain in unspecified joint On: 66-Xpo-47815:51 Request D-Dimer (95011)Indication: SOB (shortness of breath) on exertion On: 2-Dae-305714:24 Request MONOSPOT TEST ([id number])Indication: Fever, unspecified On: 5-Vtp-242281:23 Request URINALYSIS, W/ MICRO ([id number])Indication: Diabetes mellitus type 2, uncontrolled, without complications On: 92-Mfs-846241:10 Request MICROALBUMIN: CREATININE RATIO (52860) AND ([id number])Indication: Diabetes mellitus type 2, uncontrolled, without complications On: 54-Hcq-771950:10 Request METABOLIC PANEL, COMPREHENSIVE (02748)Indication: Diabetes mellitus type 2, uncontrolled, without complications On: 39-Udm-478767:10 Request CBC WITH MANUAL DIFF ([id number])Indication: Diabetes mellitus type 2, uncontrolled, without complications On: 82-Ujx-065653:10 Request LIPID PANEL (78357)Indication: Hyperlipidemia On: 28-Ukn-838754:10 Request URINE ENRIQUE CULTURE-EDITH COL COUNT ([id number])Indication: Urinary frequency On: 55-Smd-112360:25 Request IRON ([id number])Indication: Hair abnormality On: 4-Ita-656563:42 Request CALCIUM SERUM (84855)Indication: Osteopenia On: 0-Oyh-574690:30 Request HEPATIC FUNCTION PANEL (34179)Indication: Hyperlipidemia On: 55-Hjg-17252:34 Request LIPID PANEL (17247)Indication: Hyperlipidemia On: 00-Uje-97533:34 Request Comments: domin 3 months HEPATIC FUNCTION PANEL (57083)Indication: Hyperlipidemia On: 70-Ooy-078551:48 Request LIPID PANEL (48951)Indication: Hyperlipidemia On: 10-Arf-429900:48 Request Glucose, PP/2 Hour (61678)Indication: Candidiasis, unspecified On: 13-Tya-595568:46 Request INFLUENZA VIRUS ANTIBDY (05761)Indication: Cough On: 03-Oct-20078:45 Request Rapid Flu (68953 x 2)Indication: Cough On: 03-Oct-20078:41 Request METABOLIC PANEL, COMPREHENSIVE (95554)Indication: Paresthesia On: 47-Dan-647815:10 Request CBC & PLATELETS (AUTO) ([id number])Indication: Paresthesia On: 94-Vgm-141886:10 Request SED RATE ERYTHROCYTE ([id number])Indication: Paresthesia On: 63-Dhk-679786:10 Request TSH (THYROID STIMULATING HORMONE) (65687)Indication: Paresthesia On: 35-Pdf-734147:10 Request VITAMIN B-12 (CYANOCOBALAMIN) (90503)Indication: Paresthesia On: 87-Rhr-519041:10 Request HEPATIC FUNCTION PANEL (33324)Indication: Hyperlipidemia On: 41-Thw-91566:01 Request LIPID PANEL (20414)Indication: Hyperlipidemia On: 96-Yye-92161:01 Request Comments: do in 3 months URINE ENRIQUE CULTURE (EDITH COL COUNT) ([id number])Indication: Dysuria On: 50-Hzy-046960:00 Request LIPID PANEL ([id number])Indication: Hyperlipidemia On: 64-Qtn-188838:06 Request OCCULT BLOOD FECES SCREEN ([id number])Indication: Well woman exam On: 86-Klb-648813:22 Request LIPID PANEL (91262)Indication: Palpitations On: 28-Upo-018347:53 Request METABOLIC PANEL, COMPREHENSIVE (02912)Indication: Palpitations On: 93-Vil-526225:49 Request CBC WITH MANUAL DIFF ([id number])Indication: Palpitations On: :49 Request TSH ([id number])Indication: Palpitations On: :49 Request Planned Encounters Medical; 3 Month FU - On: 02-Nov-2018 8:00 [facility] Lorena Arana DO, DO, Kathleen Planned Procedures ELECTROCARDIOGRAM, COMPLETE (ECG) On: 27-Apr-2018 Intent ([id number])By: Lorena Arana DO Comments: nsr no acute chg Lorena MOREAU US DOPPLER CAROTID BILATERAL On: 03-Mar-2018 Intent ([id number])By: Lorena Arana DO, DO, Kathleen Ultrasound - LiverBy: Yasmeen MOREAU, On: 16-Feb-2018 Intent Lorena Earl DO Aerosol Treatment (31764)By: Danny On: 14-Jul-2017 Intent Iveth Comments: inspiratory and expiratory wheeze after aerosol treatment COMPUTED TOMOGRAPHY ANGIOGRAPHY OF On: 14-Jul-2017 Intent CHEST FOR PULMONARY EMBOLISM Comments: STAT STAT R/O PE ([id number])By: Iveth Delgado Solu -Medrol Injection, 125 mg On: 14-Jul-2017 Intent (J2930)By: Iveth Delgado Comments: [id number], 125mgMLong,LEATHER COVERER Holter Monitor 24 hrsBy: Danny On: 14-Jul-2017 Intent Iveth Spirometry (65138)By: Iveth Delgado On: 14-Jul-2017 Intent Comments: Normal ELECTROCARDIOGRAM, COMPLETE (ECG) On: 14-Jul-2017 Intent ([id number])By: Iveth Delgado Comments: Normal Sinus Rhythm-HR 84 Aerosol Treatment (59508)By: Danny On: 11-Jul-2017 Intent Iveth Comments: Exp wheeze after aerosol treatment. US DOPPLER CAROTID BILATERAL On: 31-May-2017 Intent (72203)By: Lorena Arana DO, DO, Kathleen MAMMOGRAM BREAST BILATERAL SCREENING On: 31-May-2017 Intent DIGITAL ([id number])By: Lorena Arana DO, DO, Kathleen Bone Density StudyBy: Yasmeen MOREAU, On: 31-May-2017 Intent Lorena Earl DO Solu- Medrol Injection, 125mg On: 17-Jan-2017 Intent ([id number])By: Lorena Arana DO Comments: lot: [id number]: 06/19site/route: LGM/IMamt: 2mLVIS signed when applicableChelsFRANCE guerrero DO, Lorena CT SCAN OF ABDOMEN AND PELVIS WITH On: 17-Jan-2017 Intent CONTRAST ([id number])By: Lorena Arana DO, DO, Kathleen BONE SCAN; WHOLE BODY ([id number])By: On: 12-Jan-2017 Intent Lorena Arana DO, DO, Kathleen ULTRASOUND OF PELVIC REGION On: 12-Jan-2017 Intent ([id number])By: Lorena Arana DO, DO, Kathleen PNEUM VAC ADLT/IMUMNOSPR, SBC/INTRM On: 27-May-2016 Intent ([id number])By: Lorena Arana DO Comments: Lot:[id number]:08/22/17Dose:125mgRoute:imSite:l hipGiven By:RACHEL signed Lorena MOREAU DEXA SCAN AXIAL SKELETON (52987)By: On: 27-May-2016 Intent Lorena Arana DO, DO, Kathleen MAMMOGRAM, SCREENING, BOTH BREAST On: 29-Apr-2016 Intent ([id number])By: Lorena Arana DO, DO, Kathleen ELECTROCARDIOGRAM, COMPLETE (ECG) On: 08-Apr-2016 Intent ([id number])By: Lorena Arana DO Comments: nsr no acute chg Lorena MOREAU PFT - CompleteBy: Mirian Hartley CNP On: 16-Mar-2016 Intent Holter Moniter ([id number])By: Lis COOPER, On: 05-Mar-2016 Intent Mirian Becker Solu -Medrol Injection, 125 mg On: 05-Mar-2016 Intent ([id number])By: Lis Mirian COOPER PFT - CompleteBy: Mirian Hartley CNP On: 05-Mar-2016 Intent Solu -Medrol Injection, 125 mg On: 27-Jan-2016 Intent ([id number])By: Conchisclarissa Mirian COOPER Comments: Lot:[id number]:09/2018Dose:125mgRoute:imSite:r hipGiven By:RACHEL signed Radiology - ChestBy: Mirian Hartley CNP On: 27-Jan-2016 Intent E Aerosol Treatment ([id number])By: Lis On: 27-Jan-2016 Intent Mirian COOPER X-RAY OF LUMBAR SPINE AND SACROILIAC On: 25-Sep-2015 Intent JOINTS ([id number])By: Lorena Arana DO, DO, Kathleen X-RAY OF WRIST, FOUR VIEWS ([id number])By: On: 25-Sep-2015 Intent Lorena Arana DO Yasmeen DOLorena EMGBy: Lorena Arana DO Yasmeen DO, On: 25-Sep-2015 Intent Lorena Comments: upper extremities Nerve ConductionBy: Yasmeen MOREAU, On: 25-Sep-2015 Intent Lorena YasmeenLorena stevenson DO Comments: upper extremities Radiology - Hand - RightBy: Yasmeen On: 25-Sep-2015 Intent Lorena MOREAU Yasmeen DOLorena Echo CompleteBy: Lorena Arana DO On: 12-May-2015 Intent Lorena Arana DO Nuclear Stress Test/Stress On: 12-May-2015 Intent SPECT/AdenosineBy: Lorena Arana DO Yasmeen DOLorena DEXA SCAN AXIAL SKELETON (40033)By: On: 12-May-2015 Intent Lorena Arana DO Yasmeen DO, Lorena BILATERAL MAMMOGRAMS (72082)By: On: 10-Mar-2015 Intent Yasmeen DO, Lorena Yasmeen DO, Lorena EKG (94697)By: Lorena Arana DO On: 05-Dec-2014 Intent Yasmeen DORosaliaLorena Comments: nsr - wierd R wave progression but not chg CT - Sinuses Complete (IV Contrast On: 05-Sep-2014 Intent Needed)By: Yasmeen MOREAU, Lorena Yasmeen DOLorena SPECIMEN HANDLING/TRANSPORT On: 17-Jun-2014 Intent (03934)By: Lis COOPER, Domenica Prevnar 13 (34655)By: Rico LEATHER COVERER, On: 22-May-2014 Intent Zo Prevnar 13 (10849)By: Yasmeen MOREAU, On: 22-May-2014 Intent Lorena Arana DORosaliaLorena Comments: [id number] arm, IMAS Ultrasound - LiverBy: Yasmeen DO, On: 22-May-2014 Intent Lorena Yasmeen DO, Lorena Ultrasound - PelvisBy: Yasmeen DO, On: 01-Mar-2014 Intent Lorena De La Cruzon DO, Lorena MAMMOGRAM, SCREENING, BOTH BREAST On: 20-Feb-2014 Intent ([id number])By: Yasmeen DO, Lorena Yasmeen DO, Lroena Radiology - PelvisBy: Yasmeen DO, On: 12-Dec-2013 Intent Lorena Yasmeen DO Lorena Comments: attention: SI jt on left side Radiology - Foot - LeftBy: Yasmeen DO, On: 12-Dec-2013 Intent Lorena Yasmeen DO, Lorena Radiology - Knee - RightBy: Yasmeen On: 12-Dec-2013 Intent DO, Lorena Yasmeen DO, Lorena Radiology - Knee - LeftBy: Yasmeen DO, On: 12-Dec-2013 Intent Lorena Yasmeen DO, Lorena Radiology - Hip - BilateralBy: Yasmeen On: 12-Dec-2013 Intent DO, Lorena Yasmeen DO, Lorena Eprescribed prescriptions ([id number])By: On: 21-Nov-2013 Intent Yasmeen DO, Lorena Yasmeen DO, Lorena Eprescribed prescriptions ([id number])By: On: 22-Aug-2013 Intent Lorena Arana DO, DO, Kathleen Toradol Injection, 30 mg ([id number])By: On: 13-Jul-2013 Intent Lis COOPER Domenica Comments: Lot:[id number]:11/29/2014Dose:30mgRoute:imSite:r hipGiven By:RACHEL signed Radiology - Foot - RightBy: Lis On: 13-Jul-2013 Intent ALLISON Domenica Comments: call wet read to Adele hartley at [facility] today, ok to tell pt Eprescribed prescriptions ([id number])By: On: 22-May-2013 Intent Terri Hernandez EKG (57489)By: Lorena Arana DO On: 14-May-2013 Intent Lorena Arana DO Comments: nsr no acute chg LV[facility] same - Pulse Oximetry (18519)By: Yasmeen MOREAU, On: 12-Feb-2013 Intent Lorena Earl DO Comments: 97% Spirometry (68618)By: Yasmeen MOREAU, On: 12-Feb-2013 Intent Lorena Earl DO Comments: good - wnl CT - Brain CTABy: Yasmeen MOREAU, On: 12-Feb-2013 Intent Lorena Earl DO MAMMOGRAM, SCREENING, BOTH BREASTS On: 12-Feb-2013 Intent (40950)By: Lorena Arana DO DO, Lorena Eprescribed prescriptions ([id number])By: On: 12-Feb-2013 Intent vIeth Manzano LPN Eprescribed prescriptions ([id number])By: On: 20-Nov-2012 Intent Lorena Arana DO, DO, Kathleen Ultrasound - ThyroidBy: Yasmeen MOREAU, On: 13-Nov-2012 Intent Lorena Arana DO, Lorena Eprescribed prescriptions ([id number])By: On: 13-Nov-2012 Intent Iveth Manzano LPN Overnight Pulse OX ([id number])By: Yasmeen On: 17-May-2012 Intent Lorena MOREAU DO, Kathleen Comments: NEED TO SEND RESULTS TO DR CURRIE WHEN DONE Kenalog Injection, 40 mgm ([id number])By: On: 13-Apr-2012 Intent Lorena Arana DO, DO, Comments: lot # [id number] 1mlCMaico Carrillo Eprescribed prescriptions ([id number])By: On: 13-Apr-2012 Lorena Rea DO, DO, Kathleen Nuclear Stress Test/Stress On: 07-Apr-2012 Intent SPECT/AdenosineBy: Lorena Arana DO, DO, Kathleen CT - Chest (IV Contrast Needed)By: On: 06-Apr-2012 Lorena Rea DO, DO, Comments: include few slices to include looking at thyriod--pt has thyromegaly and strong family h/o goiters growing internally. pt spirometry has findings consistent with extrrathorac compression Lorena EKG (26463)By: Lorena Arana DO On: 06-Apr-2012 Lorena Rea DO Comments: nsr no acute chg and no t wave inversions/pos LVH Bio Z (90701)By: Lorena Arana DO On: 06-Apr-2012 Lorena Rea DO Comments: good stable parameter Spirometry (09890)By: Yasmeen MOREAU, On: 06-Apr-2012 Intent Lorena Earl DO Comments: decent effort but very flat with inspir-- consistnet with extrathoracic compression -- and clinically describes that feeling that somehnting is in neck adn cant breathe Nuclear Stress Test/Stress On: 06-Apr-2012 Intent SPECT/TreadmillBy: Lorena Arana DO, DO, Kathleen Echo CompleteBy: Lorena Arana DO On: 06-Apr-2012 Intent Lorena Arana DO Pulse Oximetry (58056)By: Yasmeen MOREAU, On: 06-Apr-2012 Intent Lorena Earl DO SPECIMEN HNDLNG/TRNSPRT, OFFC > LAB On: 06-Apr-2012 Intent ([id number])By: Lorena Arana DO, DO, Kathleen Eprescribed prescriptions ([id number])By: On: 06-Apr-2012 Intent Iveth Manzano LPN SPECIMEN HANDLING/TRANSPORT On: 13-Mar-2012 Intent (07007)By: Julieta Vance LPN MRI - Lumbar SpineBy: Yasmeen MOREAU, On: 18-Nov-2011 Intent Lorena Earl DO MAMMOGRAM, SCREENING, BOTH BREASTS On: 06-Oct-2011 Intent (03865)By: Lorena Arana DO YasmeenLorena stevenson DO EKG ([id number])By: Lorena Arana DO On: 28-Apr-2011 Intent Lorena Arana DO Comments: nsr no acute chg FLU VAC, SPLIT, >3 YEARS, INTRAMUSC On: 28-Apr-2011 Intent (16532)By: Lorena Arana DO Comments: pt refused Lorena MOREAU MRI - Knee(s) - LeftBy: Yasmeen MOREAU, On: 07-Jan-2011 Intent Lorena Earl DO Radiology - Knee - LeftBy: Yasmeen MOREAU, On: 04-Jan-2011 Intent Lorena Earl DO DRAIN/INJECT MAJOR JOINT OR BURSA On: 12-Oct-2010 Intent ([id number])By: Lorena Arana DO Comments: 2cc marcaine and 1 cc kenolog Lorena MOREAU TDAP VACCINE >7 IM (24231)By: Yasmeen On: 07-Oct-2010 Intent Lorena MOREAU DO, Kathleen Comments: Lot #[id number]/24/13Site-left deltoidgiven by:BD/CDH Eprescribed prescriptions (G8553)By: On: 07-Oct-2010 Intent Lorena Arana DO, DO, Kathleen DXA, BONE DENSITY, AXIAL SKELETON On: 13-Jul-2010 Intent ([id number])By: Lorena Arana DO, DO, Kathleen Pelvic and Breast, Medicare On: 13-Jul-2010 Intent (G0101)By: Iveth Manzano LPN MAMMOGRAM, SCREENING, BOTH BREASTS On: 18-Jun-2010 Intent (04936)By: Lorena Arana DO YasmeenLorena stevenson DO EKG (25973)By: Lorena Arana DO On: 10-Jun-2010 Intent Lorena Arana DO Comments: nsr but tall R wave in V2 -- repeated ekg and persisnt-- will ck echo to eval for RVH PNEUM VAC ADLT/IMUMNOSPR, SBC/INTRM On: 10-Jun-2010 Intent (60550)By: Lorena Arana DO Comments: Lot #[id number] Dltd/IMDose 0.5mlgiven by:ANDREA JUÁREZ DO, Kathleen Echo CompleteBy: Lorena Arana DO On: 10-Jun-2010 Intent Lorena Arana DO Comments: [facility] to read ADMINISTRATION OF PNEUMOCOCCAL On: 10-Jun-2010 Intent VACCINE (G0009)By: Lorena Arana DO, DO, Kathleen Bio Z (05196)By: Lorena Arana DO On: 19-Jun-2008 Intent Lorena Arana DO Comments: normal svr and co EKG (32615)By: Lorena Arana DO On: 19-Jun-2008 Intent Lorena Arana DO Comments: nsr no acute changes DXA, BONE DENSITY, AXIAL SKELETON On: 08-Feb-2008 Intent (47444)By: Lorena Arana DO, DO, Kathleen Pelvic and Breast, Medicare On: 08-Feb-2008 Intent (G0101)By: Iveth Manzano LPN MAMMOGRAM, SCREENING, BOTH BREASTS On: 08-Feb-2008 Intent (34854)By: Iveth Manzano LPN Pulse Oximetry (22815)By: Saturnino On: 03-Oct-2007 Intent Kalyn Comments: 94% Inhaler Demo (57744)By: Yasmeen MOREAU, On: 20-Jun-2007 Intent Lorena Earl DO Doppler Ultrasound OtherBy: ALVINA On: 06-Mar-2007 Intent KULDIP COOPER Moniter ([id number])By: Natacha On: 25-Jan-2007 Intent Iveth Comments: done, pt o return at 1:30 pm thur Clinical Breast Examination On: 19-Jan-2007 Intent (G0101)By: Lorena Arana DO Comments: AND PELVIC EXAM Lorena MOREAU DXA, BONE DENSITY, AXIAL SKELETON On: 19-Jan-2007 Intent (40710)By: Lorena Arana DO, DO, Kathleen MAMMOGRAM, SCREENING, BOTH BREASTS On: 19-Jan-2007 Intent (66193)By: Lorena Arana DO, DO, Kathleen Bio Z (94438)By: Lorena Arana DO On: 09-Jan-2007 Intent Lorena Arana DO Comments: normal svr and co Spirometry (78485)By: Yasmeen MOREAU, On: 09-Jan-2007 Intent Lorena Earl DO Comments: normal spir Pulse Oximetry (12573)By: Yasmeen MOREAU, On: 09-Jan-2007 Intent Lorena Earl DO Echo CompleteBy: Lorena Arana DO On: 09-Jan-2007 Intent Lorena Arana DO Comments: here at [facility] Holter Moniter (26541)By: Yasmeen MOREAU, On: 09-Jan-2007 Intent Lorena Earl DO Comments: at [facility] EKG (34428)By: Lorena Arana DO On: 09-Jan-2007 Intent Lorena Arana DO Comments: nsr no acute ishemic changes Planned Medications INJECTION, KETOROLAC TROMETHAMINE, PER 15 MG Ordered: 13-Jul-2013 Pending Ciesa ARCHITECTURAL RENDERER, Domenica INJECTION, METHYLPREDNISOLONE SODIUM SUCCINATE, UP TO 125 MG Ordered: 27-Jan-2016 Pending Ciesa ARCHITECTURAL RENDERER, Domenica INJECTION, METHYLPREDNISOLONE SODIUM SUCCINATE, UP TO 125 MG Ordered: 05-Mar-2016 Pending Ciesa ARCHITECTURAL RENDERER, Domenica INJECTION, METHYLPREDNISOLONE SODIUM SUCCINATE, UP TO 125 MG Ordered: 17-Jan-2017 Pending Lorena Arana DO, DO, Kathleen INJECTION, METHYLPREDNISOLONE SODIUM SUCCINATE, UP TO 125 MG Ordered: 14-Jul-2017 Pending Iveth Delgado INJECTION, TRIAMCINOLONE ACETONIDE, NOT OTHERWISE SPECIFIED, 10 MG Ordered: 13-Apr-2012 Pending Lorena Arana DO, DO, Kathleen Instructions Name Dates Details Diabetes mellitus type II, controlled, with no [...] breath) on exertion Encounters Office Visit On: 03-Aug-2018 8:55 Encounter Reason: [...] -- doing well overall-- Dr Powell at [facility] Diagnosis: BMI 26.0-26.9,adult, Nonsmoker, Osteoarthritis, generalized, [...] Pain: started after she ate at the [facility] Diagnosis: BMI 27.0-27.9,adult, Nonsmoker, Diarrhea, unspecified type, [...] patient's care are other: ([facility] [place] ??and eye doc at [facility])., [ADDITIONAL REASON] Well Women Exam - Pap [...] Encounter Reason: Follow up tests - Date: ([facility]Encounter Diagnosis: BMI 25.0-25.9,adult, Nonsmoker, Mixed hyperlipidemia [...] patient does not have durable power of united [place] attorney or living will. The patient has noticed [...] here for ER follow up wetnt to [facility] on 03-08-2016, with cough secondary to viral [...] patient does not have durable power of [place] attorney or living will. The patient has noticed l ack of energy. Other providers contributing to the patient's care are warranty clerk and other: ([facility] ).Encounter Diagnosis: Annual Medicare Phyiscal WITHOUT abnormal [...] patient does not have durable power of [place] attorney or living will. The patient has noticed nothin g from the geriatic depression scale. Other providers contributing to the patient's care are warranty clerk and other:. Encounter Diagnosis: Diabetes type II,controlled [...] So I do have an appt with [facility] on 04/19/14).Encounter Diagnosis: End: 22-Mar-2014 12:07 ABNORMAL [...] the patient did have (wisper 0/3 mms ) a mini mental status exam done today. [...] patient does not have durable power of united [place] attorney or living will. The patient has noticed [...] poorly. Patient has been compliant with instructions. Curren End: 13-Nov-2012 10:01 t medication use: no [...] Note for Back pain: nerve blocks done [id number] which helpedEncounter Diagnosis: Displacement of lumbar intervertebral [...] Patient has been compliant with instructions. Current az End: 09-Jan-2007 11:58 dication use: no side [...]
--- OUTSIDE RECORDS SUMMARY | 2018-10-22 09:44 | XMS RPT_ITS ---
:1945 Author Organization [facility] Address [address] [place] [address] Phone Care Team Providers Name Role Phone Andre PIEDRA, Godfrey Angulo Unavailable Reason for Visit Reason For Visit Description Start Date Follow-up by complaint Preliminary reason for visit data, not yet signed by the author as of bilateral knee pain Preliminary reason for visit data, not yet signed by the author as of Chief Complaint Chief Complaint Description Start Date bilateral knee pain Preliminary chief complaint data, not yet signed by the author as of Instructions Instruction Description Start Date Patient advised to follow-up with Primary Care Physician for BMI management. Plan of Care Type Date Detail Appointment 02:00 PM Godfrey Powell MD, [address], [place], [address], Appointment 01:30 PM Godfrey Powell MD, [address] [place], [address], Appointment 01:45 PM Godfrey Powell MD, [address], [place], [address], Appointment 10:00 AM Godfrey Powell MD, [address] [place], [address], Medications Medication Instructions Start Stop Generic Name NDC Provider Date Date VOLTAREN 1 % Apply 4gm to / DICLOFENAC SODIUM [id number] Alejandra A GEL skin 4 times a 06 [place]att[place] day UNINDENTURED APPRENTICE-ASSISTANT PRINCIPAL IBUPROFEN 600 Take 1 tablet / IBUPROFEN [id number] Alejandra A MG TABS by mouth 3 06 [place] times a day UNINDENTURED APPRENTICE-ASSISTANT PRINCIPAL HYDROCODONE-A twice daily / HYDROCODONE-ACETAM [id number] Godfrey Angulo CETAMINOPHEN 28 INOPHEN Andre 7.5-325 MG TABS OMEPRAZOLE 40 1 capsule by / OMEPRAZOLE [id number] Abbey MG CPDR mouth once 30 Allison Fouse daily VITAMIN D3 1 capsule by / CHOLECALCIFEROL [id number] Abbey [address] UNIT mouth once a 30 Allison Fouse CAPS week ZOCOR 40 MG 1 tablet daily / SIMVASTATIN [id number] Abbey TABS 30 Allison Fouse Conditions or Problems Problem Name Problem Onset Status Entry Provider Comment Standard Annotate Code Date Date Description Primary [id number] Active Godfrey Angulo Primary osteoarthritis (SNOMED CT) [...] by the author as of BP Diastolic 89 mm[Hg] blood pressure, diastolic Preliminary vital sign data, not yet signed by the author as of BP Systolic 134 mm[Hg] blood pressure, systolic Preliminary vital sign data, not yet signed by the author as of Heart Rate 62 /min pulse rate E&M Preliminary vital sign [...] Value Unit Range Flag Description Office Visit: Follow-up by complaint, Rm: 3 MEDS REVIEW Done Documentation of current medications (procedure) Preliminary observation data, not yet signed by the author as of Preliminary observation data, not yet signed by the author as of XRAY HX of the bilateral xray history knee on 01/26/2018 at [facility] Preliminary observation data, not yet signed by the author as of Clinical Summary: [facility]MS[facility] account number Procedures Code Procedure Name Date Entry Date CPT-95750 Major Joint or Bursa injection/aspiration - Right CPT-J0702 Injection - betamethasone acetate 3 mg and betamethasone sodium phosphate 3 mg CPT-34477 Major Joint or Bursa injection/aspiration - Left CPT-J0702 Injection - betamethasone acetate 3 mg and betamethasone sodium phosphate 3 mg G8730 Pain assessment documented as positive - follow-up documented G8427 Current medications documented 1036F Tobacco screening was negative - non user G8417 BMI documented as above normal parameters - follow-up documented G8783 Blood pressure within normal parameters - no follow-up required 1006F Osteoarthritis symptoms and functional status assessed [facility]-[id number] Patient Encounter Medications Administered No information available. [...]
--- OUTSIDE RECORDS SUMMARY | 2018-10-22 09:44 | XMS RPT_ITS ---
:1945 Author Organization OH[facility] Care Team Providers Name Role Phone Kristin, Dr. Villatoro Attending Unavailable Trichonas, Dr. Villatoro Referring Unavailable Gunnar, Lorena Primary Care Unavailable Trichonas, Dr. Villatoro Attending Unavailable Trichonas, Dr. Villatoro Referring Unavailable Gunnar, Lorena Primary Care Unavailable Trichonas, Dr. Villatoro Attending Unavailable Denbow, Dr. Tyrel Vergara Referring Unavailable Gunnar, Lorena Primary Care Unavailable Trichonas, Dr. Villatoro Attending Unavailable Denbow, Dr. Tyrel Vergara Referring Unavailable Gunnar, Lorena Primary Care Unavailable Trichonas, Dr. Villatoro Attending Unavailable Denbow, Dr. Tyrel Vergara Referring Unavailable Gunnar, Lorena Primary Care Unavailable Trichonas, Dr. Villatoro Attending Unavailable Denbow, Dr. Tyrel Vergara Referring Unavailable Gunnar, Lorena Primary Care Unavailable BOLOGNATALIA Attending Unavailable TALIA VALENTIN Referring Unavailable BOLOGNATALIA Attending Unavailable GUNNAR, LORENA KELSEY Referring Unavailable JORGE BOATENG Attending Unavailable JORGE BOATENG Referring Unavailable EDILIA JOHNSTON Admitting Unavailable EDILIA JOHNSTON Attending Unavailable BOLOGNATALIA Attending Unavailable GUNNAR, LORENA KELSEY Referring Unavailable BOLOGNATALIA Admitting Unavailable BOLOGNATALIA Attending Unavailable Irving Foster Admitting Unavailable Trichonas, Irving Attending Unavailable No Doctor Assigned, Nodr Primary Care Unavailable Gunnar, Lorena Attending Unavailable Gunnar, Lorena Primary Care Unavailable Gunnar, Lorena Referring Unavailable Iveth Delgado DATA REPORTING ANALYST-C Attending Unavailable Iveth Delgado DATA REPORTING ANALYST-C Referring Unavailable Gunnar, Lorena Primary Care Unavailable Iveth Delgado DATA REPORTING ANALYST-C Attending Unavailable Iveth Delgado DATA REPORTING ANALYST-C Referring Unavailable Gunnar, Lorena Primary Care Unavailable BOLOGNA, TALIA A Attending Unavailable GUNNAR, KATHLEE Referring Unavailable GUNNAR, KATHLEE Primary Care Unavailable BOLOGNA, TALIA A Admitting Unavailable BOLOGNA, TALIA A Attending Unavailable GUNNAR, KATHLEE Primary Care Unavailable Gunnar DO, Lorena Attending Unavailable Gunnar DO, Lorena Referring Unavailable Gunnar DO, Lorena Consulting Unavailable PROBLEMS PROBLEMS DATE TYPE CONDITION / CODE ATTENDING STATUS SOURCE 07/19/2018 Active Unknown / MARYWMAIRA, Active [place] UNK(Unknown) JORGE Blanco [facility] [place] Repository 06/29/2018 Active Nontoxic single NA Active [place] thyroid nodule / Clinic Other E04.1(ICD-10) [place] Repository 05/12/2018 Active Presence of SHEETS, Active [place] artificial knee [facility] Other joint, bilateral / [place] Z96.653(ICD-10) Repository 05/12/2018 Active Pain in right knee SHEETS, Active [place] / M25.561(ICD-10) [facility] Other [place] Repository 05/12/2018 Active Pain in left knee SHEETS, Active [place] / M25.562(ICD-10) [facility] Other [place] Repository 05/12/2018 Active Low back pain / SHEETS, Active [place] M54.5(ICD-10) [facility] Other [place] Repository 05/12/2018 Active Other chronic pain SHEETS, Active [place] / G89.29(ICD-10) [facility] Other [place] Repository 01/09/2018 [facility], [facility] [place] incontinence [facility] Other (female) (male) / [place] N39.3(ICD-10) Repository 01/09/2018 Active Cystocele, midline [facility], Active [place] / N81.11(ICD-10) TAILA A [facility] Other [place] Repository 01/09/2018 Active Vaginal enterocele [facility], Active [place] / N81.5(ICD-10) TALIA A Clinic Other [place] Repository 01/09/2018 Admitting Unknown / [facility], Active [place] [facility] diagnosis UNK(Unknown) [facility] Repository 11/02/2017 Active Encounter for [facility], Active [place] screening for [facility] Main other disorder / [place] Z13.89(ICD-10) Repository PROCEDURES PROCEDURES No Procedure Records FoundRESULTS RESULTS CHEST PA AND LATERAL Observed: 08/24/2018 Status: F Source: [place] 2:[address] [facility] REPOSITORY [facility] Imaging Services [address] [place] [address] Chest PA and Lateral MR#: [id number] Acct: [id number] Name: DINAH COOL Rep #: [id number] : 1945 F 72 From: Harley Antony MD PCP: Lorena Maher DO Status: REG CLI Study: Chest PA and Lateral Date of Exam: 08/24/18 Exam# [id number] Ordering Dr: Iveth Delgado STUDY: X-RAY CHEST REASON FOR EXAM: Female, 72 years old. Abnormal lung sounds TECHNIQUE: 2 views COMPARISON: August 17, 2018 FINDINGS: The lungs are clear and expanded. There is no demonstrated pleural abnormality. Normal size heart. Normal mediastinum and marie. Normal visualized pulmonary arteries. Normal visualized aortic arch and descending thoracic aorta. Degenerative changes of thoracic spine.. Normal visualized ribs, clavicles, and shoulders. There is no demonstrated abnormality of the visualized soft tissue structures of the upper abdomen. RAD/Chest PA and Lateral IMPRESSION: No acute findings in the lungs Electronically Signed: Harley Antony MD at 5:08 EST Tel , Service support , CC: ALEN Delgado; Lorena Maher DO Accounts Payables Clerk: Signed OPHTHALMIC EYE EXAM Observed: 08/24/2018 Status: UNK Source: [place] 10:20 AM [facility]OSPITALS REPOSITORY DOCUMENT SIGNED ELECTRONICALLY BY Irving Foster MD ON 08/24/2018 11:53:44 THIS DOCUMENT WAS CREATED ON: 08/24/2018 11:53:34 AM BY: MD Neeru Sewell performed [id number] Exam Date: August PATIENT NAME: DINAH COOL DATE: 1945 AGE: 72 GENDER: Female RACE: White History Chief Complaint/Reason For Visit: Problem-BRVO OS, Pt sts VA unchanged since LV, Last MEGAN OS 06/15/2018, , HISTORY OF PRESENT ILLNESS: PROBLEM: BRVO OS, Pt sts VA unchanged since LV, Last MEGAN OS 06/15/2018, HPI was performed by Dr. Irving Foster MD and scribed by Amor Foster MD FAMILY HISTORY: MOTHER: Family history of macular degeneration CURRENT MEDICATIONS: Climara 0.025 MG/24HR Tra Patch Weekly, [Reported] Drisdol 60235 UNIT Oral C Capsule, [Reported] Hydrocodone-Acetaminophen Tablet, [Reported] Omeprazole 40 MG Oral Cap Capsule Delayed Release, [Reported] Simvastatin 40 MG Oral Ta Tablet, [Reported] ALLERGIES: Allergies Last Reviewed on:07/13/2018 IV Dye:Adverse reaction to substance ([id number]), Tetracyclines Exam ORIENTATION, MOOD AND AFFECT: Alert AND oriented x3 RIGHT EYE LEFT EYE UNCORRECTED VA N/A N/A [place] 20/30 20/30 CORRECTED VA 20/40 (CL) 20/400(CL-near) PRESSURE METHOD: Applanation Applanation PRESSURES: 13 14 DATE-TIME: 10:49 AM 10:49 AM FIELD MARKETING COORDINATOR: [email or web address] EXTERNAL EYE EXAM: LID: Good Position Good Position PUPIL: pharmacologically dilated pharmacologically dilated from previous exam from previous exam ADNEXA: Normal Normal MUSCLE BALANCE: Ortho OCULAR MOTILITY: Full ANTERIOR SEGMENT EXAM: TEARFILM: Good Good CONJUNCTIVA: White and quiet White and quiet CORNEA: Clear Clear ANTERIOR CHAMBER: Deep and quiet Deep and quiet IRIS: Round and reactive Round and reactive LENS: +1-2 NS +1-2 NS ANTERIOR VITREOUS: Clear Clear FUNDUS EXAM: DILATION and NUMBING DROPS: Sean 2.5% AND Mydriacyl 1% OU 08/24/2018 10:49:31 AM CUP TO DISC: .3 .3 OPTIC DISC: [place] and sharp [place] and sharp VITREOUS: Clear Clear MACULA: drusen drusen, flame shaped heme- resloved VESSELS: Normal BRVO PERIPHERY: No tears, breaks, or holes No tears, breaks, or holes Impression H34.8320 Branch retinal vein occlusion of left eye with macular edema-New 02 H25.13 Cataract, nuclear sclerotic, both eyes-New 03 H35.3132 Nonexudative age-related macular degeneration, bilateral, intermediate dry stage-New Discussion OCT Macula August OD: RPE irregularity, no edema OS: trace extrafoveal edema, stable, slightly improved A/P: 1) Branch Retina vein occlusion, left eye s/p Eylea x4 2) Nuclear sclerosis, both eyes 3) Dry Age related macular degeneration, both eyes Recommended AREDS2 vitamins, refraining from smoking, and self-monitoring of vision. Patient advised to call best if there are significant changes in vision. Recommend: observation Followup: 8 weeks Sooner PRN or if symptoms/vision worsen. Plan TODAY (OU) - OCT Macula By:Irving Foster MD Irving Foster MD DOCUMENT CREATE DATE: 08/24/2018 11:53:38 AM The Following Users Updated This Patient Encounter: MD Neeru Sewell Received for:Irving Foster Aug 24 2018 11:53AM Eastern Standard Time CHEST PA AND LATERAL Observed: 08/17/2018 Status: F Source: [place] 2:[address] [facility] REPOSITORY [facility] Imaging Services [address] [place] [address] Chest PA and Lateral MR#: [id number] Acct: [id number] Name: DINAH COOL Rep #: [id number] : 1945 F 72 From: Reynaldo Felder MD PCP: Lorena Maher DO Status: REG CLI Study: Chest PA and Lateral Date of Exam: 08/17/18 Exam# [id number] Ordering Dr: Iveth Delgado STUDY: X-RAY CHEST REASON FOR EXAM: Female, 72 years old. Cough. History of bronchitis. TECHNIQUE: PA and lateral views of the chest. COMPARISON: PA and lateral chest x-ray March 08, 2016; CTA chest/thorax July 14, 2017 FINDINGS: The lungs are poorly expanded, and there is generalized crowding with minor bibasilar subsegmental atelectasis. No lobar consolidation. There is no demonstrated pleural abnormality. Normal size heart. Normal mediastinum and marie. Normal visualized pulmonary arteries. Normal visualized aortic arch and descending thoracic aorta. There are stable multilevel degenerative changes of the visualized thoracic spine. 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 Surgical clips of prior cholecystectomy project in the right upper quadrant of the abdomen. RAD/Chest PA and Lateral IMPRESSION: Poor inspiratory effort with crowding and minor bibasilar atelectasis. Electronically Signed: Raul Felder MD at 14:43 EST , Service support , CC: ALEN Delgado; Lorena Maher DO Accounts Payables Clerk: Signed PROGRESS Observed: 07/19/2018 Status: COMPLETED Source: [place] 10:46 AM [facility] REPOSITORY O ID: [id number] Author: Jorge Boateng MD Service: (none) Author Type: Physician Type: Progress Notes Filed: 07/19/2018 11:09 AM Note Text: Follow-up 72 year-old retired female, patient of Dr. Lorena Maher, with multinodular goiter, menopause on ERT, hyperlipidemia, and GERD. She was initially diagnosed with a thyroid disorder in 2011 (incidentally found on CT scan of the neck). Has history GERD and had intermittent trouble swallowing. Medication list reviewed, reconciled. Rare neck pain with swallowing, no dysphagia otherwise. Has tried stopping ERT, but suffered tremendous hot flashes, feels she needs to remain on the patch. She had bilateral TKR 05/09/2018, doing better. Current Outpatient Prescriptions on File Prior to Visit: aspirin, enteric coated (ASPIRIN, ENTERIC COATED) 81 mg EC tablet Take 81 mg by mouth once daily. cholecalciferol, vitamin D3, 50,000 unit tab Take by mouth once each week. estradiol 0.05 mg/24 hr Apply 1 Patch as directed once each week. Omeprazole (PRILOSEC) 40 mg capsule Take 40 mg by mouth once daily. simvastatin (ZOCOR) 40 mg tablet Take 40 mg by mouth daily at bedtime. Review of patient's allergies indicates: Contrast Dye [Iodin* Vomiting Comment:Severe Nausea Tetracycline Hives PAST MEDICAL HISTORY Gerd (Gastroesophageal Reflux Disease) Hyperlipidemia Artificial Menopause State PAST SURGICAL HISTORY Knee Left Op Surgery Past Surgical History of (injections for back pain) Cholecystectomy (1997) Vaginal Hysterectomy (1993) Oophorectomy, Part/Total Unilat/Bilat (b/l) FAMILY HISTORY Mother: Thyroid, Lipids, Hypertension Maternal Grandmother: Thyroid Other: other (thyroid cancer; cousin sister) SOCIAL HISTORY Smoking Status: Former Smoker Alcohol Use: No Review of systems: Patient notes no weight changes, fever, fatigue, weakness, change in balance or sensation, visual problems, hearing changes, dizziness, trouble swallowing, nasal difficulties, shortness of breath, chest pain, change in exertional tolerance, foot or leg problems, skin lesions, abdominal pain, diarrhea, constipation, urinary problems, incontinence, back pain, joint pains, anxiety, depression, insomnia, menstrual difficulties, breast lesions/pain/mass. Remainder of review of systems was unremarkable. PHYSICAL EXAM: BP 149/78 (BP Site: Left Arm, BP Position: Sitting, BP Cuff Size: Large Adult) Pulse 92 Ht 160 cm (5' 2.99) Wt 67.9 kg (149 lb 9.6 oz) SpO2 96% BMI 26.51 kg/m? Weight down 3 pounds since 07/2017. Height stable. General: Well-appearing overweight (BMI > 25) septuagenarian female, alert, in no acute distress, well-hydrated, well nourished, overweight BP slightly elevated. Eyes: CAROLINA, extra-ocular movements normal Oropharynx: Lips, mucosa, and tongue normal, teeth and gums normal, oropharynx normal Thyroid: normal to inspection, palpation. Thyroid size: unenlarged Heart: RRR. No ectopy Lungs: Breathing unlabored. Abdomen: not examined Extremities: normal exam of the extremities, no edema present, no deformities Neuro: Awake, alert and oriented x 3, No involuntary motions. Gait normal. Skin: color, texture, turgor normal, no rashes or lesions Results for DINAH COOL ( ) Ref. Range 05/19/2018 05:55 Sodium Latest Ref Range: 136 - 145 mEq/L 134 (L) Potassium Latest Ref Range: 3.5 - 5.1 mEq/L 4.5 Chloride Latest Ref Range: 98 - 107 mEq/L 104 CO2 Latest Ref Range: 21 - 32 mEq/L 29 BUN Latest Ref Range: 7 - 25 mg/dL 14 Creatinine Latest Ref Range: 0.51 - 0.95 mg/dL 0.61 Glucose Latest Ref Range: 70 - 99 mg/dL 111 (H) Calcium Latest Ref Range: 8.5 - 10.1 mg/dL 8.9 Thyroid ultrasound in 06/2018 showed 1.1 cm nodule and 6 mm nodule in right upper pole. Left lobe shows a 4 mm lower pole nodule. ASSESSMENT: ? Multinodular goiter - small right-sided nodules, reasonably stable on surveillance ultrasounds. Repeat US in 06/2019. ? Hyperlipidemia - continue simvastatin per Dr. Maher ? ERT - continues E2 patch RECOMMENDATIONS: Continue current medications. Get repeat thyroid ultrasound in 06/2019. Will call with results. See me again in one year. Continue with Dr. Maher for regular health care needs. Jorge Boateng MD CNOV Observed: 07/19/2018 Status: COMPLETED Source: [place] 10:45 AM [facility] REPOSITORY Office Visit (ENDMED) SILVINADINAH Romo ([id number]) 1945 F Date Time Provider Department 07/19/18 10:45 AM JORGE BOATENG During your visit today, we recorded the following information about you: Pulse Blood pressure Weight Height 92/minute 149/78 67.9 kg 1.6 m Jorge Boateng MD, MD 07/19/2018 11:09 AM Signed Follow-up 72 year-old retired female, patient of Dr. Lorena Maher, with multinodular goiter, menopause on ERT, hyperlipidemia, and GERD. She was initially diagnosed with a thyroid disorder in 2011 (incidentally found on CT scan of the neck). Has history GERD and had intermittent trouble swallowing. Medication list reviewed, reconciled. Rare neck pain with swallowing, no dysphagia otherwise. Has tried stopping ERT, but suffered tremendous hot flashes, feels she needs to remain on the patch. She had bilateral TKR 05/09/2018, doing better. Current Outpatient Prescriptions on File Prior to Visit: aspirin, enteric coated (ASPIRIN, ENTERIC COATED) 81 mg EC tablet Take 81 mg by mouth once daily. cholecalciferol, vitamin D3, 50,000 unit tab Take by mouth once each week. estradiol 0.05 mg/24 hr Apply 1 Patch as directed once each week. Omeprazole (PRILOSEC) 40 mg capsule Take 40 mg by mouth once daily. simvastatin (ZOCOR) 40 mg tablet Take 40 mg by mouth daily at bedtime. Review of patient's allergies indicates: Contrast Dye [Iodin* Vomiting Comment:Severe Nausea Tetracycline Hives PAST MEDICAL HISTORY Gerd (Gastroesophageal Reflux Disease) Hyperlipidemia Artificial Menopause State PAST SURGICAL HISTORY Knee Left Op Surgery Past Surgical History of (injections for back pain) Cholecystectomy (1997) Vaginal Hysterectomy (1993) Oophorectomy, Part/Total Unilat/Bilat (b/l) FAMILY HISTORY Mother: Thyroid, Lipids, Hypertension Maternal Grandmother: Thyroid Other: other (thyroid cancer; cousin sister) SOCIAL HISTORY Smoking Status: Former Smoker Alcohol Use: No Review of systems: Patient notes no weight changes, fever, fatigue, weakness, change in balance or sensation, visual problems, hearing changes, dizziness, trouble swallowing, nasal difficulties, shortness of breath, chest pain, change in exertional tolerance, foot or leg problems, skin lesions, abdominal pain, diarrhea, constipation, urinary problems, incontinence, back pain, joint pains, anxiety, depression, insomnia, menstrual difficulties, breast lesions/pain/mass. Remainder of review of systems was unremarkable. PHYSICAL EXAM: BP 149/78 (BP Site: Left Arm, BP Position: Sitting, BP Cuff Size: Large Adult) Pulse 92 Ht 160 cm (5' 2.99) Wt 67.9 kg (149 lb 9.6 oz) SpO2 96% BMI 26.51 kg/m? Weight down 3 pounds since 07/2017. Height stable. General: Well-appearing overweight (BMI > 25) septuagenarian female, alert, in no acute distress, well-hydrated, well nourished, overweight BP slightly elevated. Eyes: CAROLINA, extra-ocular movements normal Oropharynx: Lips, mucosa, and tongue normal, teeth and gums normal, oropharynx normal Thyroid: normal to inspection, palpation. Thyroid size: unenlarged Heart: RRR. No ectopy Lungs: Breathing unlabored. Abdomen: not examined Extremities: normal exam of the extremities, no edema present, no deformities Neuro: Awake, alert and oriented x 3, No involuntary motions. Gait normal. Skin: color, texture, turgor normal, no rashes or lesions Results for DINAH COOL ( ) Ref. Range 05/19/2018 05:55 Sodium Latest Ref Range: 136 - 145 mEq/L 134 (L) Potassium Latest Ref Range: 3.5 - 5.1 mEq/L 4.5 Chloride Latest Ref Range: 98 - 107 mEq/L 104 CO2 Latest Ref Range: 21 - 32 mEq/L 29 BUN Latest Ref Range: 7 - 25 mg/dL 14 Creatinine Latest Ref Range: 0.51 - 0.95 mg/dL 0.61 Glucose Latest Ref Range: 70 - 99 mg/dL 111 (H) Calcium Latest Ref Range: 8.5 - 10.1 mg/dL 8.9 Thyroid ultrasound in 06/2018 showed 1.1 cm nodule and 6 mm nodule in right upper pole. Left lobe shows a 4 mm lower pole nodule. ASSESSMENT: ? Multinodular goiter - small right-sided nodules, reasonably stable on surveillance ultrasounds. Repeat US in 06/2019. ? Hyperlipidemia - continue simvastatin per Dr. Maher ? ERT - continues E2 patch RECOMMENDATIONS: Continue current medications. Get repeat thyroid ultrasound in 06/2019. Will call with results. See me again in one year. Continue with Dr. Maher for regular health care needs. MD Jorge Hawkins MD, MD 07/19/2018 11:00 AM Signed Get repeat thyroid ultrasound in 06/2019, will call with results. See me again in 12 months. Referring Provider: SELF [200] Allergies As of Date: 07/19/2018 Noted Allergy Reaction GABAPENTIN 07/11/2018 4 - Hives 9 - Itching 14 - Other: See Comments Comments: nausea CODEINE 05/12/2018 16 - Unknown CONTRAST DYE (IODINE) 06/24/2014 11 - Vomiting Comments: Severe Nausea TETRACYCLINE 12/05/2012 4 - Hives Date Reviewed: 07/19/2018 Reviewed by: Rani Elizondo MA - Fully Assessed Reason for Visit: Thyroid Problem [110] Primary Visit Diagnosis:Multiple thyroid nodules [E04.2] Other Visit Diagnoses:Pure hypercholesterolemia [E78.00] Post-menopause on HRT (hormone replacement therapy) [Z79.890] Order(s):US THYROID/PARATHYROID [[id number]] Order #: [id number] FUTURE Prescriptions as of 07/19/2018 Sig: ASPIRIN 81 MG TABLET,DELAYED * Take 81 mg by mouth once arlette* CHOLECALCIFEROL (VITAMIN D3) * Take by mouth once each week. ESTRADIOL 0.05 MG/24 HR WEEKL* Apply 1 Patch as directed onc* OMEPRAZOLE 40 MG CAPSULE,DARBY* Take 40 mg by mouth once arlette* SIMVASTATIN 40 MG TABLET Take 40 mg by mouth daily at * Medication notes this encounter ALBUTEROL SULFATE INHALATION >> Rani Elizondo MA 07/19/2018 10:42 AM >> RANI ELIZONDO MA TueJul 19, 2018 10:42 AM Problem List As Of Date 07/19/2018 Noted Resolved Multiple thyroid nodules [E04.2] INVALID FOR* More... Vitamin D deficiency [E55.9] INVALID FOR* Post-menopause on HRT (hormone replacement ther*INVALID FOR* GERD (gastroesophageal reflux disease) [K21.9] INVALID FOR* Hyperlipidemia [E78.5] INVALID FOR* Bilateral hearing loss [H91.93] INVALID FOR* Elevated blood pressure reading without diagnos*INVALID FOR* Status post total bilateral knee replacement [Z*INVALID FOR*06/30/2018 Cystocele, midline [N81.11] INVALID FOR* Primary osteoarthritis of both knees [M17.0] INVALID FOR* Chronic back pain [M54.9, G89.29] INVALID FOR* Other instructions from your clinician: Get repeat thyroid ultrasound in 06/2019, will call with results. See me again in 12 months. Medications Discontinued During This Encounter polyethylene glycol 3350 (MIRALAX, G* 30 P* 0 05/22/2018 07/19/2018 Route: ORAL Sig: Take 1 Packet by mouth once daily as needed. Disc: Course of therapy completed oxybutynin ER (DITROPAN XL) 10 mg 24* 30 t* 11 01/09/2018 07/19/2018 Route: ORAL Sig: Take 1 tablet by mouth once daily. Disc: Course of therapy completed fexofenadine HCl (MUCINEX ALLERGY OR* 07/19/2018 Class: Historical Med Route: ORAL Sig: Take 1 tablet by mouth as needed. Disc: Course of therapy completed cyclobenzaprine (FLEXERIL) 10 mg tab* 21 t* 0 05/22/2018 07/19/2018 Route: ORAL Sig: Take 1 tablet by mouth three times daily as needed for Muscle Spasm. Disc: Course of therapy completed acetaminophen (TYLENOL) 500 mg tablet 90 t* 0 05/22/2018 07/19/2018 Route: ORAL Sig: Take 2 tablets by mouth three times daily. Disc: Course of therapy completed ALBUTEROL SULFATE INHALATION 07/19/2018 Class: Historical Med Route: INHALATION Sig: Inhale as instructed. Disc: Course of therapy completed Follow-up and Disposition History Recorded Encounter Status:Closed by JORGE BOATENG MD on 07/19/18 OPHTHALMIC EYE EXAM Observed: 07/13/2018 Status: UNK Source: [place] 9:20 AM HOSPITALS REPOSITORY DOCUMENT SIGNED ELECTRONICALLY BY Irving Foster MD ON 07/13/2018 10:22:21 THIS DOCUMENT WAS CREATED ON: 07/13/2018 10:22:14 AM BY: MD Deanna Sewell performed [id number] Exam Date: July PATIENT NAME: DINAH COOL DATE: 1945 AGE: 72 GENDER: Female RACE: White History Chief Complaint/Reason For Visit: Problem-BRVO OS, Pt sts VA unchanged since LV, Last MEGAN OS 06/15/2018, HISTORY OF PRESENT ILLNESS: PROBLEM: Follow-up visit CONTEXT/ONSET: several weeks ago HPI was performed by Dr. Irving Foster MD and scribed by Amor Foster MD PAST MEDICAL HISTORY: OCULAR: Refractive error OU PROCEDURES : EYLEA INJECTION OS 12/23/2017, EYLEA INJECTION OS 02/24/2018, EYLEA INJECTION OS 04/20/2018 INFECTIOUS: No known previous infections OCULAR SIGNIFICANT: None ILLNESSES: High cholesterol; SURGERIES: History of Ovarian Cystectomy; HEAD/OCULAR TRAUMA: No known history of trauma FAMILY HISTORY: MOTHER: Family history of macular degeneration CURRENT MEDICATIONS: Climara 0.025 MG/24HR Tra Patch Weekly, [Reported] Drisdol [id number] UNIT Oral C Capsule, [Reported] Hydrocodone-Acetaminophen Tablet, [Reported] Omeprazole 40 MG Oral Cap Capsule Delayed Release, [Reported] Simvastatin 40 MG Oral Ta Tablet, [Reported] ALLERGIES: Allergies Last Reviewed on:07/13/2018 IV Dye:Adverse reaction to substance ([id number]), Tetracyclines REVIEW OF SYSTEMS: All other Review Of Systems negative Exam ORIENTATION, MOOD AND AFFECT: Alert AND oriented x3 RIGHT EYE LEFT EYE UNCORRECTED VA N/A 20/60 PINHOLE 20/40 20/50-1 CORRECTED VA 20/60 PRESSURE METHOD: Tonopen Tonopen PRESSURES: 13 10 DATE-TIME: 09:40 AM 09:40 AM FIELD MARKETING COORDINATOR: [email or web address] EXTERNAL EYE EXAM: ANTERIOR SEGMENT EXAM: TEARFILM: Good Good CONJUNCTIVA: White and quiet White and quiet CORNEA: Clear Clear ANTERIOR CHAMBER: Deep and quiet Deep and quiet IRIS: Round and reactive Round and reactive LENS: +1-2 NS +1-2 NS ANTERIOR VITREOUS: Clear Clear FUNDUS EXAM: DILATION and NUMBING DROPS: Sean 2.5% AND Mydriacyl 1% OU 07/13/2018 09:41:17 AM CUP TO DISC: .3 .3 OPTIC DISC: [place] and sharp [place] and sharp VITREOUS: Clear Clear MACULA: drusen drusen, flame shaped heme- resloved VESSELS: Normal BRVO PERIPHERY: No tears, breaks, or holes No tears, breaks, or holes Impression 01 H34.8320 Branch retinal vein occlusion of left eye with macular edema-New 02 H25.13 Cataract, nuclear sclerotic, both eyes-New Discussion OCT Macula July OD: RPE irregularity, no edema OS: trace extrafoveal edema, slightly worse A/P: 1) Branch Retina vein occlusion, left eye s/p Eylea x4 2) Nuclear sclerosis, both eyes Recommend: observation Followup: 4 weeks Sooner PRN or if symptoms/vision worsen. Plan Irving Foster MD DOCUMENT CREATE DATE: 07/13/2018 10:22:17 AM The Following Users Updated This Patient Encounter: Deanna Foster MD Received for:Irving Fsoter Jul 13 2018 10:22AM Eastern Standard Time US THYROID/PARATHYROID Observed: 06/29/2018 Status: F Source: [place] 2:37 PM CLINIC OTHER CAMPUS REPOSITORY * * *Final Report* * * DATE OF EXAM: Jun 29 2018 2:37PM U 1048 - US THYROID/PARATHYROID / PROCEDURE REASON: e04.1 thyroid nodule * * * * Physician Interpretation * * * * PROCEDURE: US THYROID/PARATHYROID INDICATION: e04.1 thyroid nodule TECHNIQUE: Multiple sonographic images thyroid gland were obtained and stored in a permanent archive. COMPARISON: 06/09/2015. FINDINGS: The right thyroid lobe measures 3.7 x 1.3 x 1.6 cm and the left thyroid lobe 3.7 x 0.9 x 1.1 cm. The isthmus is 2 mm in thickness. In the upper pole of the right thyroid lobe there is a relatively isoechoic smooth bordered benign-appearing nodule measuring 11 x 5 x 9 mm, previously 8 x 5 x 7 mm. There is an adjacent echogenic nodule measuring 6 x 6 x 6 mm, previously 6.5 x 4 mm. Midpole cystic lesion noted on the prior study is no longer seen. In the lower pole the left thyroid lobe there is an echogenic lesion measuring 4 x 3 x 4 mm, previously 7 x 5 x 5. IMPRESSION: 1. Multiple small benign-appearing nodules. The largest is 11 mm having shown interval growth. Continued sonographic surveillance is recommended. Accounts Payables Clerk: PSCB Transcribe Date/Time: Jun 30 2018 2:11P Dictated by : BULL OLIVA MD This examination was interpreted and the report reviewed and electronically signed by: BULL OLIVA MD on Jun 30 2018 2:15PM EST [id number] OPHTHALMIC EYE EXAM Observed: 06/15/2018 Status: UNK Source: [place] 9:40 AM HOSPITALS REPOSITORY DOCUMENT SIGNED ELECTRONICALLY BY Irving Foster MD ON 06/15/2018 10:49:04 THIS DOCUMENT WAS CREATED ON: 06/15/2018 10:48:54 AM BY: MD Neeru Sewell performed [id number] Exam Date: June PATIENT NAME: DINAH COOL DATE: 1945 AGE: 72 GENDER: Female RACE: White PRIMARY CARE PHYSICIAN: Lorena Maher History Chief Complaint/Reason For Visit: Problem-BRVO OS, Pt sts VA unchanged since LV, Last MEGAN OS 04/20/18, HISTORY OF PRESENT ILLNESS: PROBLEM: BRVO OS, Pt sts VA unchanged since LV, Last MEGAN OS 04/20/18 HPI was performed by Dr. Irving Foster MD and scribed by Amor Foster MD PAST MEDICAL HISTORY: OCULAR: Refractive error OU PROCEDURES : EYLEA INJECTION OS 12/23/2017, EYLEA INJECTION OS 02/24/2018, EYLEA INJECTION OS 04/20/2018 INFECTIOUS: No known previous infections OCULAR SIGNIFICANT: None ILLNESSES: High cholesterol; SURGERIES: History of Ovarian Cystectomy; HEAD/OCULAR TRAUMA: No known history of trauma FAMILY HISTORY: MOTHER: Family history of macular degeneration CURRENT MEDICATIONS: Climara 0.025 MG/24HR Tra Patch Weekly, [Reported] Drisdol 73352 UNIT Oral C Capsule, [Reported] Hydrocodone-Acetaminophen Tablet, [Reported] Omeprazole 40 MG Oral Cap Capsule Delayed Release, [Reported] Simvastatin 40 MG Oral Ta Tablet, [Reported] ALLERGIES: Allergies Last Reviewed on:06/15/2018 IV Dye:Adverse reaction to substance ([id number]), Tetracyclines REVIEW OF SYSTEMS: All other Review Of Systems negative Exam ORIENTATION, MOOD AND AFFECT: Alert AND oriented x3 RIGHT EYE LEFT EYE UNCORRECTED VA 20/200 20/100 PINHOLE 20/40 20/30 PRESSURE METHOD: Tonopen Tonopen PRESSURES: 13 14 DATE-TIME: 10:17 AM 10:17 AM FIELD MARKETING COORDINATOR: [email or web address] EXTERNAL EYE EXAM: LID: Good Position Good Position PUPIL: pharmacologically dilated pharmacologically dilated from previous exam from previous exam ADNEXA: Normal Normal MUSCLE BALANCE: Ortho OCULAR MOTILITY: Full ANTERIOR SEGMENT EXAM: TEARFILM: Good Good CONJUNCTIVA: White and quiet White and quiet CORNEA: Clear Clear ANTERIOR CHAMBER: Deep and quiet Deep and quiet IRIS: Round and reactive Round and reactive LENS: +1-2 NS +1-2 NS ANTERIOR VITREOUS: Clear Clear FUNDUS EXAM: DILATION and NUMBING DROPS: Sean 2.5% AND Mydriacyl 1% OU 06/15/2018 10:17:21 AM CUP TO DISC: .3 .3 OPTIC DISC: [place] and sharp [place] and sharp VITREOUS: Clear Clear MACULA: drusen drusen, flame shaped heme- resloved VESSELS: Normal BRVO PERIPHERY: No tears, breaks, or holes No tears, breaks, or holes Impression 01 H34.8320 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 Plan TODAY (OU) - OCT Macula By:Irving Foster MD Irving Foster MD DOCUMENT CREATE DATE: 06/15/2018 10:48:57 AM The Following Users Updated This Patient Encounter: MD Neeru Sullivan Received for:Irving Foster Jun 15 2018 10:49AM [place] Standard Time SOCIAL WORK Observed: 05/22/2018 Status: COMPLETED Source: [place] 6:00 PM [facility] REPOSITORY HNO ID: [id number] Author: ALEN Mohr (Sw) Service: Social Work Author Type: Word Processing Specialist Type: Social Work Filed: 05/23/2018 10:27 AM Note Text: SOCIAL WORK PROGRESS NOTE Name: Dinah Cool Patient was discharged home on 05/22. Orders sent to [facility] this am. Physician wrote for SN,PT,OT. Signature: ALEN Mohr Date: May 23, 2018 Time: 10:24 AM THERAPY NT Observed: 05/22/2018 Status: COMPLETED Source: [place] 6:00 PM [facility] REPOSITORY HNO ID: [id number] Author: Mary BradfordPtRamin Agudelo PT Service: Physical Therapy Author Type: Physical Therapist Type: Therapy (PT/OT/Speech/Resp) Filed: 05/24/2018 10:25 AM Note Text: Physical Therapy [facility] Facility Discharge Summary ROOM: [place] [address] Patient was discharged home on 05/22/18 somewhat unexpectedly. home exercise program was issued. Pt to receive home health care. GOAL REVIEW: Able to perform HEP with: Independent Transfer supine to/from sit with: Independent Transfer sit to/from stand with: Independent Ambulate with: Independent Distance: 150 Device: Wheeled Walker Ambulate up and down curb step with: Modified Independent Device: Cane Ambulate up and down steps with: Modified Independent Number of steps: 2 Device: Rail ROM: 0-95 B OBJECTIVE: Functional Mobility Assist Level Additional Information Rolling Independent Supine to Sit Independent Sit to Supine Independent Scooting Modified Independent Sit to Stand Independent Stand to Sit Independent Bed to Chair Stand By Assistance Toilet/Commode Independent Gait Stand By Assistance Gait Device: (wheeled walker/cane) Gait Distance (feet): 100' ww/ 100' cane Stairs Stand By Assistance Stairs Device: (bilateral hand rails) Number of Stairs: 8 Curb Step Stand By Assistance (3x) Wheeled Walker Car Transfer Gait Deviations Right Lower Extremity: Heel strike during initial stance decreased;Push-off during terminal stance decreased;Knee flexion during stance increased Gait Deviations Left Lower Extremity: Heel strike during initial stance decreased;Push-off during terminal stance decreased;Knee flexion during stance increased General Gait Deviations: Flexed trunk posture;Wide base of support;Non-functional gait speed SIGNATURE: Mary Agudelo PT PATIENT NAME: Dinah Cool DATE: May 24, 2018 TIME: 10:24 AM CNDS Observed: 05/22/2018 Status: COMPLETED Source: [place] 4:52 PM [facility] [place] REPOSITORY HNO ID: [id number] Author: Brandie Goodson Service: Family Practice Author Type: Nurse Practitioner Type: Discharge Summaries Filed: 05/22/2018 5:03 PM Note Text: Attestation signed by Vesta Olvera at 05/22/2018 5:35 PM I personally saw and assessed the patient and agree with the documented assessment. DISCHARGE SUMMARY PATIENT NAME: Dinah Cool ADMISSION DATE: 05/12/2018 DISCHARGE DATE: 05/22/2018 ATTENDING PHYSICIAN: Edilia Johnston Code Status: Not on file Highest Readmission Risk Score: 11 The 30 day readmissions risk score is derived from an internally validated risk model which evaluates patient level characteristics, utilization history, medication orders and lab results up until the day of discharge. Patients with a score of 40 or above are considered highest risk for readmission. Specific patient level drivers will be listed at the bottom of the summary. REASON FOR HOSPITALIZATION: Generalized weakness following bilateral knee replacement surgery. DIAGNOSIS: Active Problems: Status post total bilateral knee replacement Chronic back pain Resolved Problems: * No resolved hospital problems. * OPERATIONS DURING HOSPITALIZATION: None PROCEDURES DURING HOSPITALIZATION: No procedures performed HOSPITAL COURSE: Patient was admitted to [facility] for short term rehab on 05/12/18 following bilateral knee replacement surgery on 05/09/[address] Powell. She has made sufficient progress with PT/OT services to be discharged home with home PT/OT. There were no complications during her stay here. Active Problems: Status post total bilateral knee replacement POA: Yes Assessment AND Plan: Follow-up with Dr. Powell is scheduled for May 30. Continue PT/OT services at home. Continue OXY IR 10 mg every 12 hrs as needed for pain. Gradually decrease dose over the next week. Restart home vicodin after one week. Her pain management office was notified of post-op pain medication Rx. Follow up with your PCP in 1-2 weeks. Chronic back pain POA: Yes Assessment AND Plan: Continue care with pain management doctor Resolved Problems: * No resolved hospital problems. * Transitions of Care Critical Issues: None LABS AND PROCEDURES PENDING AT DISCHARGE: No pending results. CONSULTING TEAMS DURING HOSPITALIZATION: None PATIENT CONDITION AT DISCHARGE: Stable DISCHARGE DISPOSITION: Home with Home Health Care Discharge Physical Exam: VITAL SIGNS: BP 134/76 Pulse 106 Temp 36.4 ?C (97.6 ?F) (Oral) Resp 18 Ht 160 cm (5' 3) Wt 71.7 kg (158 lb) SpO2 98% BMI 27.99 kg/m? GENERAL: Alert, no distress, cooperative SKIN: Skin color, texture, turgor normal. No rashes or lesions. NECK: Carotid pulse normal contour, Supple BACK: Positive findings: limitation of motion: flexion: moderate, vertebral tenderness: lumbar spine LUNGS: Lungs clear to auscultation, Good diaphragmatic excursion CARDIAC: Normal S1 and S2; no rubs, murmurs, or gallops ABDOMEN: Abdomen soft, non-tender, BS normal, No masses or organomegaly EXTREMITIES: Extremities normal, no deformities, edema, clubbing or skin discoloration. Good capillary refill. PULSES: 2+ radial, 2+ dorsalis pedis WOUND: Clean, dry and intact INFORMATION PROVIDED TO PATIENT: Sedating medications, Pain DIET: Resume pre-hospital diet ACTIVITY: May walk with a walker WOUND/SURGICAL SITE CARE: Leave open to air ALLERGIES Allergen Reactions - Codeine Unknown - Contrast Dye [Iodin* Vomiting Severe Nausea - Tetracycline Hives DISCHARGE MEDICATION: Current Discharge Medication List START taking these medications acetaminophen (TYLENOL) 1,000 mg Take 1,000 mg by mouth three times daily. Qty: 90 tablet Refills: 0 polyethylene glycol 3350 (MIRALAX, GLYCOLAX) 17 g Take 17 g by mouth once daily as needed. Qty: 30 Packet Refills: 0 oxyCODONE IR (ROXICODONE) 10 mg Take 10 mg by mouth every 12 hours as needed for Pain. Earliest Fill Date: 05/22/18 Qty: 14 tablet Refills: 0 Associated Diagnoses:Status post total bilateral knee replacement; Acute pain of both knees cyclobenzaprine (FLEXERIL) 10 mg Take 10 mg by mouth three times daily as needed for Muscle Spasm. Qty: 21 tablet Refills: 0 CONTINUE these medications which have NOT CHANGED oxybutynin ER (DITROPAN XL) 10 mg Take 10 mg by mouth once daily. Qty: 30 tablet Refills: 11 fexofenadine HCl (MUCINEX ALLERGY ORAL) 1 tablet Take 1 tablet by mouth as needed. aspirin, enteric coated (ASPIRIN, ENTERIC COATED) 81 mg Take 81 mg by mouth once daily. cholecalciferol, vitamin D3, 50,000 unit tab Take by mouth once each week. ALBUTEROL SULFATE INHALATION Inhale as instructed. simvastatin (ZOCOR) 40 mg Take 40 mg by mouth daily at bedtime. Omeprazole 40 mg Take 40 mg by mouth once daily. estradiol (CLIMARA) 1 Patch Apply 1 Patch as directed once each week. STOP taking these medications ciprofloxacin HCl (CIPRO) 500 mg Comments: Reason for Stopping: estradiol - REMOVE PATCH Comments: Reason for Stopping: oxymetazoline HCl (AFRIN NASAL) Comments: Reason for Stopping: ibuprofen (MOTRIN) 600 mg Comments: Reason for Stopping: PREDNISONE ORAL 1 tablet Comments: Reason for Stopping: HYDROcodone-Acetaminophen (NORCO) 1 tablet Comments: Reason for Stopping: FUTURE APPOINTMENTS: Follow Up with PCP: Lorena Maher, DO Follow Up with as scheduled The patient's risk for 30-day readmission is determined using the following contributing factors: Pt variables contributing to increased readmission risk: 14 Most Recent BUN Result 14 Active Medication Orders 8.7 First Resulted Calcium During Admission 1 Insurance - Medicare 1 Discharge Disposition - Home TIME OF CARE: Discharge Management: I personally spent greater than 30 minutes involved in the discharge management of this patient. SIGNATURE: Brandie Goodson APRN.CNP PAGER/CONTACT #: [phone] DATE: May 22, 2018 TIME: 4:53 PM THERAPY NT Observed: 05/22/2018 Status: COMPLETED Source: [place] 4:48 PM CLINIC MAIN CAMPUS REPOSITORY HNO ID: [id number] Author: Abril (Ot) MAYA Olivier Service: Occupational Therapy Author Type: Occupational Therapist Type: Therapy (PT/OT/Speech/Resp) Filed: 05/22/2018 4:59 PM Note Text: Occupational Therapy [facility] Facility Treatment and Discharge Summary SERVICE DATE: 05/22/2018 SERVICE TIME: 1525 to 1555 ROOM: [place] [address] Recommended Discharge Disposition: Home OT Recommended Discharge Equipment: To Be Determined Equipment Issued: Long Handled Shoe Horn;Long Handled Sponge OT Recommendations to Nursing: To Bathroom for ADL?s /and or Toileting;OOB for meals;With assist of 1 person Equipment: Standard Walker Precautions/Activity Restrictions: Total Knee Replacement (bilateral) Precaution/Activity Restriction Comments: WBAT bilateral lower extremities Isolation Type: None ASSESSMENT: This patient has made good progress in her functional mobility skills and her ability to complete self care skills both with and without adaptive equipment. Pt was to be discharged to home with spouse tomorrow, 05/23/2018, but pt requested to go home today as she is feeling nauseated due to what she describes a chemical odor in her room that she cannot tolerate. (Nursing and maintenance notified and investigating odor). Pt did not meet all OT goals as kitchen mobility training and tub transfer training was not completed--was scheduled to be done today, but pt did not feel she could tolerate this. Instructed pt to not attempt tub transfers until instructed by home therapist, and meals to be completed by spouse. Pt's spouse has received instruction in type and amount of assistance pt will require upon discharge and in equipment recommendations for homegoing. Pt will be discharged home with spouse today, 05/22/2018 with home health services to follow for nursing, PT.OT. See below for specifics. Patient Disposition at Start of Session: Other: See Comment;Call Power in Reach (sitting edge of bed) Patient Disposition at End of Session: Call Power in Reach;Other: See Comment (sitting edge of bed) Tolerance Limited By Other: See Comment (pt felt too nauseated to participate except for verbal instr) Occupational Therapy Problem List: Pain;Safety Deficits;Impaired Self Care;Decreased Activity Tolerance;Decreased Strength;Functional Mobility Impairment Patient /Caregiver Goals: Go Home;Care For Self Learning/Educational Needs: Family Education/Training;Functional Activities/Mobility;Pain Management;Precautions;Rehabilitation Techniques and Procedures;Safety;Self Care Goals for Plan of Care: Able to perform HEP with: Independent: Met with PT exercises Upper Body Bathing with: Set Up: Met Upper Body Dressing with: Set Up: Met Lower Body Bathing with: Stand By Assistance: Met Lower Body Dressing with: Stand By Assistance: Met Toilet Hygiene with: Supervision: Met Chair Transfer with: Modified Independent: Met Toilet Transfer with: Modified Independent: Met Tub Transfer with: Supervision: Nearly met; pt at a stand by at a stand by assist level Kitchen Mobility Tasks with: Supervision : Not met as pt unable to participate in this task prior to discharge Progress Toward Goals: Progressing as expected Rehab Potential: Good PLAN: Treatment Frequency (times per week): 5 Treatment Duration (number): 2 Weeks Treatment Interventions: Education;Self Care / Home Management;Strengthening;Functional Mobility Training;Neuromuscular Re-education;Pain Management Plan of Care developed with: Patient;Caregiver TREATMENT INTERVENTIONS: Therapy Diagnosis: Reduced mobility-other;Decreased activities of daily living (ADL);Muscle Weakness (generalized);Unsteadiness on feet Interventions Provided: Therapeutic Activity (10895) Therapeutic Activity (38654) Treatment Minutes: 30 2 units Skilled Intervention(s): Education with pt in home safety guidelines and therapy discharge instructions. Handouts provided and pt states understanding of all information discussed. Answered pt's questions re: equipment recommendations for home. Word Processing Specialist contacted pt's spouse re: additional questions/concerns he might have; Word Processing Specialist reports spouse states he has no other questions and feels comfortable taking pt home today. Total Timed Code Treatment Minutes: 30 Total Treatment Time (minutes): 30 SUBJECTIVE: Current Hospital Course: Chart reviewed and no significant medical updates relevant to therapy were noted Reason for Occupational Therapy Consult: OT eval secondary to bilateral knee replacement surgery Relevant Past Medical History: left meniscus repair, degenerative disc disease in back, ankylosing spondylitis, sciatica on left side Patient Report: Pt states she is happy to be going home today. Home Environment Patient Lives With: Spouse Assistance Available: 24 Hour Entry To Home: Stairs;Without Rail Number Of Stairs Into Home: 1 (+1) Tub/Shower Type: tub/shower combo Laundry: main floor laundry Equipment Owned: Commode-Raised;Standard Walker;Wheeled Walker;Rollator;Shower Chair;Front Facer;Grab Bars-Shower Prior Functional Level: Within Functional Limits OBJECTIVE: Gross Motor Function Hand Dominance: Right Range of Motion: WFL Strength: WFL (grossly 4/5 bilaterally) Current Activities of Daily Living Assist Level Feeding Independent Grooming Supervision (at sink level) Bathing Upper Body Set Up (in shower) Bathing Lower Body Stand By Assistance (in shower) Dressing Upper Body Set Up Dressing Lower Body Set Up (completed without AE while sitting in bed) Toileting Independent Instrumental Activities of Daily Living Assist Level Meal/Beverage Prep Maximal Assistance Light Cleaning Total Assistance Laundry Maximal Assistance Medication Management with Strategies Functional Mobility Assist Level Rolling Stand By Assistance Supine to Sit Stand By Assistance Sit to Supine Stand By Assistance Scooting Stand By Assistance Sit to Stand Supervision Stand to Sit Supervision Bed to Chair Modified Independent Stand Pivot Wheeled Walker;Gait Belt Toilet/Commode Modified Independent Tub Transfer Stand By Assistance (and verbal cues using extended tub bench) Shower Transfer Contact Guard Assistance (and verbal cues for technique) Functional Mobility Supervision Wheeled Walker Car Transfer Balance: Dynamic Standing Dynamic Standing Balance: Stand By Assistance Activity Tolerance: Standing Activity Standing Activity: UBE Standing Activity Tolerance (in minutes): 6 Please see discipline specific clinical documentation flowsheet for complete details for this therapy evaluation/treatment. SIGNATURE: RIRI Miller/Mark PATIENT NAME: Dinah Cool DATE: May 22, 2018 TIME: 4:48 PM SOCIAL WORK Observed: 05/22/2018 Status: COMPLETED Source: [place] 4:12 PM [facility] [place] REPOSITORY HNO ID: [id number] Author: ALEN Mohr (Sw) Service: Social Work Author Type: Word Processing Specialist Type: Social Work Filed: 05/22/2018 4:17 PM Note Text: SOCIAL WORK PROGRESS NOTE Name: Dinah Cool Patient to go home tonight instead of 05/23 as she states there is an odor in her room that is making her feel ill. Per OT's request, MICHAEL phoned patient's to ask if he has any questions/concerns regarding helping patient at home. states he feels comfortable and has no concerns. Signature: ALEN Mohr Date: May 22, 2018 Time: 4:13 PM THERAPY NT Observed: 05/22/2018 Status: COMPLETED Source: [place] 1:52 PM [facility] REPOSITORY HNO ID: [id number] Author: Sandee Cooley PT ASSIST Service: Physical Therapy Author Type: Voice Network Administrator Type: Therapy (PT/OT/Speech/Resp) Filed: 05/22/2018 1:52 PM Note Text: PHYSICAL THERAPY MISSED VISIT SERVICE DATE: 05/22/2018 SERVICE TIME: 1330 to 1332 ROOM: [place] [address] Attempted Treatment. Patient not seen due to Illness. SIGNATURE: Sandee Cooley PTA PATIENT NAME: Dinah Cool DATE: May 22, 2018 TIME: 1:52 PM THERAPY NT Observed: 05/22/2018 Status: COMPLETED Source: [place] 10:23 AM [facility] REPOSITORY HNO ID: [id number] Author: Sandee Cooley PT ASSIST Service: Physical Therapy Author Type: Voice Network Administrator Type: Therapy (PT/OT/Speech/Resp) Filed: 05/22/2018 10:28 AM Note Text: Attestation signed by Lucy Pérez PT at 05/22/2018 11:14 AM I reviewed and agree with the documentation corresponding to this therapy visit. SIGNATURE: Lucy Pérez PT DATE: May 22, 2018 TIME: 11:14 AM Physical Therapy [facility] Facility Treatment SERVICE DATE: 05/22/2018 SERVICE TIME: 839 to 929 ROOM: [place] [address] Recommended Discharge Disposition: Home PT Anticipated Discharge Needs: Family Training;Equipment;Supervision at Home PT Recommendations to Nursing: Ambulate with device;To bathroom;OOB for Meals Device: Wheeled Walker Precautions/Activity Restrictions: Total Knee Replacement (bilateral) Precaution/Activity Restriction Comments: WBAT bilateral lower extremities Isolation Type: None ASSESSMENT : Patient presents with patient started on cane , vc, demo required, patient did well required multiple cue/demo to decrease stride length and have RLE move with cane, completed stairs vc to remain forward not to turn lateral when descendindg stairs. Requires skilled PT for vc and demo required for gait with cane,vc for ex. completetion . Patient Disposition at Start of Session: Call Power in Reach (seated edge of bed) Patient Disposition at End of Session: (return to room) Tolerated Full Session Pain Physical Therapy Problem List: Decreased Range Of Motion;Decreased Strength;Functional Mobility Impairment Patient /Caregiver Goals: Go Home Learning/Educational Needs: Discharge Plan;Equipment;Family Education/Training;Functional Activities/Mobility;Rehabilitation Techniques and Procedures;Precautions Goals for Plan of Care: Able to perform HEP with: Independent Transfer supine to/from sit with: Independent Transfer sit to/from stand with: Independent Ambulate with: Independent Distance: 150 Device: Wheeled Walker Ambulate up and down curb step with: Modified Independent Device: Cane Ambulate up and down steps with: Modified Independent Number of steps: 2 Device: Rail ROM: 0-95 B Progress Toward Goals: Progressing slower than expected Due To: pain, poor exercise tolerance Rehab Potential: Good PLAN: Treatment Frequency (times per week): 7 Treatment Duration (number): 3 Weeks Treatment Interventions: Joint Mobility;Strengthening;Functional Mobility Training Plan of Care developed with: Patient;Caregiver TREATMENT INTERVENTIONS: Therapy Diagnosis: Reduced mobility-other;Abnormalities of gait and mobility-other Interventions Provided: Therapeutic Exercise (71798);Gait Training (46048) Therapeutic Exercise (05158) Treatment Minutes: 30 2 units Skilled Intervention(s): Instruction in therapeutic exercise vc for TKR protocol , patient reports she is fine with HEP Ex per flow sheet Gait Training (79164) Treatment Minutes: 15 1 unit Skilled Intervention(s): Instruction in sit to stand technique with proper hand placement and body positioning at edge of bed/chair, Instruction in stand to sit technique with LE's touching chair/bed and reaching back for surface, Instruction in sequencing, gait pattern, Instruction in correction of gait deviations and Instruction in stair negotiation Instructed patient on using cane, demo and vc used patient doing well required min cues and reminders during amb. Total Timed Code Treatment Minutes: 45 Total Treatment Time (minutes): 45 SUBJECTIVE: Current Hospital Course: Chart reviewed and no significant medical updates relevant to therapy were noted Reason for Physical Therapy Consult : s/p B TKA presents for post op rehab Relevant Past Medical History: left meniscus repair, degenerative disc disease in back, ankylosing spondylitis, sciatica on left side Patient Report:her pain level is 4/10 patient request to ambulate in hallways, request granted. No complaints Home Environment Patient Lives With: Spouse Assistance Available: 24 Hour Entry To Home: Stairs;Without Rail Number Of Stairs Into Home: 1 (+1) Tub/Shower Type: tub/shower combo Laundry: main floor laundry Equipment Owned: Commode-Raised;Standard Walker;Wheeled Walker;Rollator;Shower Chair;Front Facer;Grab Bars-Shower Prior Functional Level: Within Functional Limits OBJECTIVE: CURRENT FUNCTIONAL STATUS: Gross Motor Function Range of Motion: WFL Except;Left LE Measurement;Right LE Measurement Right Knee ROM: 110 Left Knee ROM: 110 Strength: WFL Except;Right LE Measurement;Left LE Measurement Right Hip Flexion Strength: 4/5 Right Hip Extension Strength: 4-/5 Right Knee Extension Strength: 4-/5 Left Hip Flexion Strength: 4/5 Left Hip Extension Strength: 4-/5 Left Knee Extension Strength: 4-/5 Functional Mobility Assist Level Additional Information Rolling Independent Supine to Sit Independent Sit to Supine Independent Scooting Modified Independent Sit to Stand Independent Stand to Sit Independent Bed to Chair Stand By Assistance Bed To Chair Transfer Type: Stand Pivot Bed To Chair Transfer Equipment: Wheeled Walker Toilet/Commode Independent Gait Stand By Assistance Gait Device: (wheeled walker/cane) Gait Distance (feet): 100' ww/ 100' cane Stairs Stand By Assistance Stairs Device: (bilateral hand rails) Number of Stairs: 8 Curb Step Stand By Assistance (3x) Wheeled Walker Car Transfer Gait Deviations Right Lower Extremity: Heel strike during initial stance decreased;Push-off during terminal stance decreased;Knee flexion during stance increased Gait Deviations Left Lower Extremity: Heel strike during initial stance decreased;Push-off during terminal stance decreased;Knee flexion during stance increased General Gait Deviations: Flexed trunk posture;Wide base of support;Non-functional gait speed Please see discipline specific clinical documentation flowsheet for complete details for this therapy evaluation/treatment. SIGNATURE: Sandee Cooley PTA PATIENT NAME: Dinah Cool DATE: May 22, 2018 TIME: 10:24 AM THERAPY NT Observed: 05/21/2018 Status: COMPLETED Source: [place] 11:18 AM [facility] REPOSITORY O ID: [id number] Author: Sandee Cooley PT ASSIST Service: Physical Therapy Author Type: Voice Network Administrator Type: Therapy (PT/OT/Speech/Resp) Filed: 05/21/2018 11:20 AM Note Text: Attestation signed by Lucy Pérez PT at 05/22/2018 9:22 AM I reviewed and agree with the documentation corresponding to this therapy visit. SIGNATURE: Lucy Pérez PT DATE: May 22, 2018 TIME: 9:22 AM Physical Therapy [facility] SERVICE DATE: 05/21/2018 SERVICE TIME: 1030 to 1110 ROOM: [place] [address] Recommended Discharge Disposition: Home PT Anticipated Discharge Needs: Family Training;Equipment;Supervision at Home PT Recommendations to Nursing: Ambulate with device;To bathroom;OOB for Meals Device: Wheeled Walker Precautions/Activity Restrictions: Total Knee Replacement (bilateral) Precaution/Activity Restriction Comments: WBAT bilateral lower extremities Isolation Type: None ASSESSMENT : Patient presents with ability to alternate feet on stairs ascending and descending, completed TKR protocol with vc . Requires skilled PT for vc for ex.. Patient Disposition at Start of Session: Supine in Bed Patient Disposition at End of Session: Call Power in Reach (seated edge of bed) Tolerated Full Session Pain Physical Therapy Problem List: Decreased Range Of Motion;Decreased Strength;Functional Mobility Impairment Patient /Caregiver Goals: Go Home Learning/Educational Needs: Discharge Plan;Equipment;Family Education/Training;Functional Activities/Mobility;Rehabilitation Techniques and Procedures;Precautions Goals for Plan of Care: Able to perform HEP with: Independent Transfer supine to/from sit with: Independent Transfer sit to/from stand with: Independent Ambulate with: Independent Distance: 150 Device: Wheeled Walker Ambulate up and down curb step with: Modified Independent Device: Cane Ambulate up and down steps with: Modified Independent Number of steps: 2 Device: Rail ROM: 0-95 B Progress Toward Goals: Progressing slower than expected Due To: pain, poor exercise tolerance Rehab Potential: Good PLAN: Treatment Frequency (times per week): 7 Treatment Duration (number): 3 Weeks Treatment Interventions: Joint Mobility;Strengthening;Functional Mobility Training Plan of Care developed with: Patient;Caregiver TREATMENT INTERVENTIONS: Therapy Diagnosis: Reduced mobility-other;Abnormalities of gait and mobility-other Interventions Provided: Therapeutic Exercise (83647);Gait Training (75499) Therapeutic Exercise (44030) Treatment Minutes: 30 2 units Skilled Intervention(s): Instruction in therapeutic exercise vc for TKR protocol per flow sheet Gait Training (15529) Treatment Minutes: 10 1 unit Skilled Intervention(s): Instruction in sit to stand technique with proper hand placement and body positioning at edge of bed/chair, Instruction in stand to sit technique with LE's touching chair/bed and reaching back for surface, Instruction in sequencing, gait pattern and Instruction in stair negotiation Patient completed stair instruction able to alternate feet on stairs, vc good demo back Total Timed Code Treatment Minutes: 40 Total Treatment Time (minutes): 40 SUBJECTIVE: Current Hospital Course: Chart reviewed and no significant medical updates relevant to therapy were noted Reason for Physical Therapy Consult : s/p B TKA presents for post op rehab Relevant Past Medical History: left meniscus repair, degenerative disc disease in back, ankylosing spondylitis, sciatica on left side Patient Report: she was sore but doing better no complaints Home Environment Patient Lives With: Spouse Assistance Available: 24 Hour Entry To Home: Stairs;Without Rail Number Of Stairs Into Home: 1 (+1) Tub/Shower Type: tub/shower combo Laundry: main floor laundry Equipment Owned: Commode-Raised;Standard Walker;Wheeled Walker;Rollator;Shower Chair;Front Facer;Grab Bars-Shower Prior Functional Level: Within Functional Limits OBJECTIVE: CURRENT FUNCTIONAL STATUS: Gross Motor Function Range of Motion: WFL Except;Left LE Measurement;Right LE Measurement Right Knee ROM: 95 Left Knee ROM: 95 Strength: WFL Except;Right LE Measurement;Left LE Measurement Right Hip Flexion Strength: 4/5 Right Hip Extension Strength: 4-/5 Right Knee Extension Strength: 4-/5 Left Hip Flexion Strength: 4/5 Left Hip Extension Strength: 4-/5 Left Knee Extension Strength: 4-/5 Functional Mobility Assist Level Additional Information Rolling Independent Supine to Sit Independent Sit to Supine Independent Scooting Modified Independent Sit to Stand Independent Stand to Sit Independent Bed to Chair Stand By Assistance Bed To Chair Transfer Type: Stand Pivot Bed To Chair Transfer Equipment: Wheeled Walker Toilet/Commode Independent Gait Stand By Assistance Gait Device: Wheeled Walker Gait Distance (feet): 100'+ Stairs Stand By Assistance Stairs Device: (bilateral rails) Number of Stairs: 12 Curb Step Stand By Assistance (3x) Wheeled Walker Car Transfer Gait Deviations Right Lower Extremity: Heel strike during initial stance decreased;Push-off during terminal stance decreased;Knee flexion during stance increased Gait Deviations Left Lower Extremity: Heel strike during initial stance decreased;Push-off during terminal stance decreased;Knee flexion during stance increased General Gait Deviations: Flexed trunk posture;Wide base of support;Non-functional gait speed Please see discipline specific clinical documentation flowsheet for complete details for this therapy evaluation/treatment. SIGNATURE: Sandee Cooley PTA PATIENT NAME: Dinah Cool DATE: May 21, 2018 TIME: 11:18 AM THERAPY NT Observed: 05/20/2018 Status: COMPLETED Source: [place] 1:36 PM [facility] REPOSITORY HNO ID: [id number] Author: Sandee Cooley PT ASSIST Service: Physical Therapy Author Type: Voice Network Administrator Type: Therapy (PT/OT/Speech/Resp) Filed: 05/20/2018 1:40 PM Note Text: Attestation signed by Lucy BradfordPtRamin Pérez PT at 05/22/2018 9:23 AM I reviewed and agree with the documentation corresponding to this therapy visit. SIGNATURE: Lucy Pérez PT DATE: May 22, 2018 TIME: 9:23 AM Physical Therapy [facility] SERVICE DATE: 05/20/2018 SERVICE TIME: 1255 to 1335 ROOM: [place] [address] Recommended Discharge Disposition: Home PT Anticipated Discharge Needs: Family Training;Equipment;Supervision at Home PT Recommendations to Nursing: Ambulate with device;To bathroom;OOB for Meals Device: Wheeled Walker Precautions/Activity Restrictions: Total Knee Replacement (bilateral) Precaution/Activity Restriction Comments: WBAT bilateral lower extremities Isolation Type: None ASSESSMENT : Patient presents with good heel strike, good posture , vc for stretching . Requires skilled PT for vc for ex. tech,. Patient Disposition at Start of Session: Supine in Bed Patient Disposition at End of Session: OOB in Chair;Call Power in Reach Tolerated Full Session Pain Physical Therapy Problem List: Decreased Range Of Motion;Decreased Strength;Functional Mobility Impairment Patient /Caregiver Goals: Go Home Learning/Educational Needs: Discharge Plan;Equipment;Family Education/Training;Functional Activities/Mobility;Rehabilitation Techniques and Procedures;Precautions Goals for Plan of Care: Able to perform HEP with: Independent Transfer supine to/from sit with: Independent Transfer sit to/from stand with: Independent Ambulate with: Independent Distance: 150 Device: Wheeled Walker Ambulate up and down curb step with: Modified Independent Device: Cane Ambulate up and down steps with: Modified Independent Number of steps: 2 Device: Rail ROM: 0-95 B Progress Toward Goals: Progressing slower than expected Due To: pain, poor exercise tolerance Rehab Potential: Good PLAN: Treatment Frequency (times per week): 7 Treatment Duration (number): 3 Weeks Treatment Interventions: Joint Mobility;Strengthening;Functional Mobility Training Plan of Care developed with: Patient;Caregiver TREATMENT INTERVENTIONS: Therapy Diagnosis: Reduced mobility-other;Abnormalities of gait and mobility-other Interventions Provided: Therapeutic Exercise (78020);Gait Training (45870) Therapeutic Exercise (06748) Treatment Minutes: 25 2 units Skilled Intervention(s): Instruction in therapeutic exercise vc for ex. per TKR protocol per flow sheet Gait Training (32641) Treatment Minutes: 15 1 unit Skilled Intervention(s): Instruction in sit to stand technique with proper hand placement and body positioning at edge of bed/chair, Instruction in stand to sit technique with LE's touching chair/bed and reaching back for surface and Instruction in sequencing, gait pattern good demo back on curb instruction 3x with WW Total Timed Code Treatment Minutes: 40 Total Treatment Time (minutes): 40 SUBJECTIVE: Current Hospital Course: Chart reviewed and no significant medical updates relevant to therapy were noted Reason for Physical Therapy Consult : s/p B TKA presents for post op rehab Relevant Past Medical History: left meniscus repair, degenerative disc disease in back, ankylosing spondylitis, sciatica on left side Patient Report: she is sore pain level 5-6-7/10 Home Environment Patient Lives With: Spouse Assistance Available: 24 Hour Entry To Home: Stairs;Without Rail Number Of Stairs Into Home: 1 (+1) Tub/Shower Type: tub/shower combo Laundry: main floor laundry Equipment Owned: Commode-Raised;Standard Walker;Wheeled Walker;Rollator;Shower Chair;Front Facer;Grab Bars-Shower Prior Functional Level: Within Functional Limits OBJECTIVE: CURRENT FUNCTIONAL STATUS: Gross Motor Function Range of Motion: WFL Except;Left LE Measurement;Right LE Measurement Right Knee ROM: 95 Left Knee ROM: 95 Strength: WFL Except;Right LE Measurement;Left LE Measurement Right Hip Flexion Strength: 4/5 Right Hip Extension Strength: 4-/5 Right Knee Extension Strength: 4-/5 Left Hip Flexion Strength: 4/5 Left Hip Extension Strength: 4-/5 Left Knee Extension Strength: 4-/5 Functional Mobility Assist Level Additional Information Rolling Independent Supine to Sit Independent Sit to Supine Independent Scooting Independent Sit to Stand Supervision Stand to Sit Supervision Bed to Chair Stand By Assistance Bed To Chair Transfer Type: Stand Pivot Bed To Chair Transfer Equipment: Wheeled Walker Toilet/Commode Independent Gait Stand By Assistance Gait Device: Wheeled Walker Gait Distance (feet): 100'+ Stairs Stand By Assistance Stairs Device: Rail (bilateral) Number of Stairs: 8 Curb Step Stand By Assistance (3x) Wheeled Walker Car Transfer Gait Deviations Right Lower Extremity: Heel strike during initial stance decreased;Push-off during terminal stance decreased;Knee flexion during stance increased Gait Deviations Left Lower Extremity: Heel strike during initial stance decreased;Push-off during terminal stance decreased;Knee flexion during stance increased General Gait Deviations: Flexed trunk posture;Wide base of support;Non-functional gait speed Please see discipline specific clinical documentation flowsheet for complete details for this therapy evaluation/treatment. SIGNATURE: Sandee Cooley PTA PATIENT NAME: Dinah Cool DATE: May 20, 2018 TIME: 1:36 PM THERAPY NT Observed: 05/20/2018 Status: COMPLETED Source: [place] 11:12 AM [facility] REPOSITORY [facility] ID: [id number] Author: Sandee Cooley PT ASSIST Service: Physical Therapy Author Type: Voice Network Administrator Type: Therapy (PT/OT/Speech/Resp) Filed: 05/20/2018 11:22 AM Note Text: Attestation signed by Lucy Pérez PT at 05/22/2018 9:24 AM I reviewed and agree with the documentation corresponding to this therapy visit. SIGNATURE: Lucy Pérez PT DATE: May 22, 2018 TIME: 9:24 AM Physical Therapy [facility] SERVICE DATE: 05/20/2018 SERVICE TIME: 1020 to 1110 ROOM: [place] [address] Recommended Discharge Disposition: Home PT Anticipated Discharge Needs: Family Training;Equipment;Supervision at Home PT Recommendations to Nursing: Ambulate with device;To bathroom;OOB for Meals Device: Wheeled Walker Precautions/Activity Restrictions: Total Knee Replacement (bilateral) Precaution/Activity Restriction Comments: WBAT bilateral lower extremities Isolation Type: None ASSESSMENT : Patient presents with continual c/o pain in back knees , completed ex. with moans during treatment and states pain, soreness and stiffness , completed TKR protocol with vc for tech, stairs with vc. Requires skilled PT for vc for completetion of ex. and gait instruction. Patient Disposition at Start of Session: (seated in bed) Patient Disposition at End of Session: Call Power in Reach (seated edge of bed ) Tolerated Full Session Pain Physical Therapy Problem List: Decreased Range Of Motion;Decreased Strength;Functional Mobility Impairment Patient /Caregiver Goals: Go Home Learning/Educational Needs: Discharge Plan;Equipment;Family Education/Training;Functional Activities/Mobility;Rehabilitation Techniques and Procedures;Precautions Goals for Plan of Care: Able to perform HEP with: Independent Transfer supine to/from sit with: Independent Transfer sit to/from stand with: Independent Ambulate with: Independent Distance: 150 Device: Wheeled Walker Ambulate up and down curb step with: Modified Independent Device: Cane Ambulate up and down steps with: Modified Independent Number of steps: 2 Device: Rail ROM: 0-95 B Progress Toward Goals: Progressing slower than expected Due To: pain, poor exercise tolerance Rehab Potential: Good PLAN: Treatment Frequency (times per week): 7 Treatment Duration (number): 3 Weeks Treatment Interventions: Joint Mobility;Strengthening;Functional Mobility Training Plan of Care developed with: Patient;Caregiver TREATMENT INTERVENTIONS: Therapy Diagnosis: Reduced mobility-other;Abnormalities of gait and mobility-other Interventions Provided: Therapeutic Exercise (23316);Gait Training (13121) Therapeutic Exercise (07988) Treatment Minutes: 30 2 units Skilled Intervention(s): Instruction in therapeutic exercise vc for ex. POC per TKR protocol, review HEP with patient ex per flow sheet Gait Training (85900) Treatment Minutes: 20 1 unit Skilled Intervention(s): Instruction in sit to stand technique with proper hand placement and body positioning at edge of bed/chair, Instruction in stand to sit technique with LE's touching chair/bed and reaching back for surface, Instruction in sequencing, gait pattern, Instruction in correction of gait deviations and Instruction in stair negotiation Total Timed Code Treatment Minutes: 50 Total Treatment Time (minutes): 50 SUBJECTIVE: Current Hospital Course: Chart reviewed and no significant medical updates relevant to therapy were noted Reason for Physical Therapy Consult : s/p B TKA presents for post op rehab Relevant Past Medical History: left meniscus repair, degenerative disc disease in back, ankylosing spondylitis, sciatica on left side Patient Report: she is stiff and sore pain level 6-7/10 , c/o dry mouth . Home Environment Patient Lives With: Spouse Assistance Available: 24 Hour Entry To Home: Stairs;Without Rail Number Of Stairs Into Home: 1 (+1) Tub/Shower Type: tub/shower combo Laundry: main floor laundry Equipment Owned: Commode-Raised;Standard Walker;Wheeled Walker;Rollator;Shower Chair;Front Facer;Grab Bars-Shower Prior Functional Level: Within Functional Limits OBJECTIVE: CURRENT FUNCTIONAL STATUS: Gross Motor Function Range of Motion: WFL Except;Left LE Measurement;Right LE Measurement Right Knee ROM: 95 Left Knee ROM: 95 Strength: WFL Except;Right LE Measurement;Left LE Measurement Right Hip Flexion Strength: 4/5 Right Hip Extension Strength: 4-/5 Right Knee Extension Strength: 4-/5 Left Hip Flexion Strength: 4/5 Left Hip Extension Strength: 4-/5 Left Knee Extension Strength: 4-/5 Functional Mobility Assist Level Additional Information Rolling Independent Supine to Sit Independent Sit to Supine Independent Scooting Independent Sit to Stand Stand By Assistance Stand to Sit Stand By Assistance Bed to Chair Stand By Assistance Bed To Chair Transfer Type: Stand Pivot Bed To Chair Transfer Equipment: Wheeled Walker Toilet/Commode Independent Gait Supervision Gait Device: Wheeled Walker Gait Distance (feet): 100'+ Stairs Stand By Assistance Stairs Device: Rail (bilateral) Number of Stairs: 8 Curb Step Contact Guard Assistance Wheeled Walker Car Transfer Gait Deviations Right Lower Extremity: Heel strike during initial stance decreased;Push-off during terminal stance decreased;Knee flexion during stance increased Gait Deviations Left Lower Extremity: Heel strike during initial stance decreased;Push-off during terminal stance decreased;Knee flexion during stance increased General Gait Deviations: Flexed trunk posture;Wide base of support;Non-functional gait speed Please see discipline specific clinical documentation flowsheet for complete details for this therapy evaluation/treatment. SIGNATURE: Sandee Cooley PTA PATIENT NAME: Dinah Cool DATE: May 20, 2018 TIME: 11:13 AM SOCIAL WORK Observed: 05/19/2018 Status: COMPLETED Source: [place] 3:36 PM [facility] REPOSITORY HNO ID: [id number] Author: ALEN Mohr ([place]) Service: Social Work Author Type: Word Processing Specialist Type: Social Work Filed: 05/19/2018 3:38 PM Note Text: SOCIAL WORK PROGRESS NOTE Name: Dinah Cool referral sent to [facility]. They are not able to accept patient as she lives outside of their service area. Referral sent to [facility]. They are able to accept patient and will provide PT and OT. Signature: ALEN Mohr Date: May 19, 2018 Time: 3:36 PM THERAPY NT Observed: 05/19/2018 Status: COMPLETED Source: [place] 2:34 PM [facility] REPOSITORY HNO ID: [id number] Author: Mary Agudelo PT Service: Physical Therapy Author Type: Physical Therapist Type: Therapy (PT/OT/Speech/Resp) Filed: 05/19/2018 2:36 PM Note Text: Physical Therapy [facility] SERVICE DATE: 05/19/2018 SERVICE TIME: 1320 to 1400 ROOM: [place] [address] Recommended Discharge Disposition: Home PT Anticipated Discharge Needs: Family Training;Equipment;Supervision at Home PT Recommendations to Nursing: Ambulate with device;To bathroom;OOB for Meals Device: Wheeled Walker Precautions/Activity Restrictions: Total Knee Replacement (bilateral) Precaution/Activity Restriction Comments: WBAT bilateral lower extremities Isolation Type: None ASSESSMENT : Patient limited by back pain this session Patient Disposition at Start of Session: OOB in Chair Patient Disposition at End of Session: Supine in Bed;Call Power in Reach Tolerance Limited By Pain Physical Therapy Problem List: Decreased Range Of Motion;Decreased Strength;Functional Mobility Impairment Patient /Caregiver Goals: Go Home Learning/Educational Needs: Discharge Plan;Equipment;Family Education/Training;Functional Activities/Mobility;Rehabilitation Techniques and Procedures;Precautions Goals for Plan of Care: Able to perform HEP with: Independent Transfer supine to/from sit with: Independent Transfer sit to/from stand with: Independent Ambulate with: Independent Distance: 150 Device: Wheeled Walker Ambulate up and down curb step with: Modified Independent Device: Cane Ambulate up and down steps with: Modified Independent Number of steps: 2 Device: Rail ROM: 0-95 B Progress Toward Goals: Progressing slower than expected Due To: pain, poor exercise tolerance Rehab Potential: Good PLAN: Treatment Frequency (times per week): 7 Treatment Duration (number): 3 Weeks Treatment Interventions: Joint Mobility;Strengthening;Functional Mobility Training Plan of Care developed with: Patient;Caregiver TREATMENT INTERVENTIONS: Therapy Diagnosis: Reduced mobility-other;Abnormalities of gait and mobility-other Interventions Provided: Therapeutic Exercise (48135);Neuromuscular Reeducation (41106);Gait Training (91676) Therapeutic Exercise (06880) Treatment Minutes: 30 2 units Skilled Intervention(s): Instruction in therapeutic exercise per flowsheet. HEP handout provided and reviewed with patient Gait Training (73528) Treatment Minutes: 10 1 unit Skilled Intervention(s): Instruction in correction of gait deviations Total Timed Code Treatment Minutes: 40 Total Treatment Time (minutes): 40 SUBJECTIVE: Current Hospital Course: Chart reviewed and no significant medical updates relevant to therapy were noted Reason for Physical Therapy Consult : s/p B TKA presents for post op rehab Relevant Past Medical History: left meniscus repair, degenerative disc disease in back, ankylosing spondylitis, sciatica on left side Patient Report: Patient c/o back pain from pinched nerve Home Environment Patient Lives With: Spouse Assistance Available: 24 Hour Entry To Home: Stairs;Without Rail Number Of Stairs Into Home: 1 (+1) Tub/Shower Type: tub/shower combo Laundry: main floor laundry Equipment Owned: Commode-Raised;Standard Walker;Wheeled Walker;Rollator;Shower Chair;Front Facer;Grab Bars-Shower Prior Functional Level: Within Functional Limits OBJECTIVE: CURRENT FUNCTIONAL STATUS: Gross Motor Function Range of Motion: WFL Except;Left LE Measurement;Right LE Measurement Right Knee ROM: 95 Left Knee ROM: 95 Strength: WFL Except;Right LE Measurement;Left LE Measurement Right Hip Flexion Strength: 4/5 Right Hip Extension Strength: 4-/5 Right Knee Extension Strength: 4-/5 Left Hip Flexion Strength: 4/5 Left Hip Extension Strength: 4-/5 Left Knee Extension Strength: 4-/5 Functional Mobility Assist Level Additional Information Rolling Independent Supine to Sit Independent Sit to Supine Independent Scooting Independent Sit to Stand Stand By Assistance Stand to Sit Stand By Assistance Bed to Chair Stand By Assistance Bed To Chair Transfer Type: Stand Pivot Bed To Chair Transfer Equipment: Wheeled Walker Toilet/Commode Stand By Assistance Gait Supervision Gait Device: Wheeled Walker Gait Distance (feet): 150 Stairs Minimal Assistance Stairs Device: Rail (Bilateral) Number of Stairs: 4 Curb Step Contact Guard Assistance Wheeled Walker Car Transfer Gait Deviations Right Lower Extremity: Heel strike during initial stance decreased;Push-off during terminal stance decreased;Knee flexion during stance increased Gait Deviations Left Lower Extremity: Heel strike during initial stance decreased;Push-off during terminal stance decreased;Knee flexion during stance increased General Gait Deviations: Flexed trunk posture;Wide base of support;Non-functional gait speed Please see discipline specific clinical documentation flowsheet for complete details for this therapy evaluation/treatment. SIGNATURE: Mary Agudelo PT PATIENT NAME: Dinah Cool DATE: May 19, 2018 TIME: 2:34 PM SOCIAL WORK Observed: 05/19/2018 Status: COMPLETED Source: [place] 11:34 AM [facility] REPOSITORY HNO ID: [id number] Author: ALEN Mohr (Sw) Service: Social Work Author Type: Word Processing Specialist Type: Social Work Filed: 05/19/2018 11:38 AM Note Text: SOCIAL WORK PROGRESS NOTE Name: Dinah Cool Per PT, patient to be discharged on 05/23 to home with HHC: PT/OT. Patient already has a walker. MICHAEL emailed LACQUER SPRAYER (Brandie) regarding discharge. Signature: ALEN Mohr Date: May 19, 2018 Time: 11:34 AM THERAPY NT Observed: 05/19/2018 Status: COMPLETED Source: [place] 11:16 AM [facility] REPOSITORY HNO ID: [id number] Author: Mary Agudelo PT Service: Physical Therapy Author Type: Physical Therapist Type: Therapy (PT/OT/Speech/Resp) Filed: 05/19/2018 11:18 AM Note Text: Physical Therapy [facility] SERVICE DATE: 05/19/2018 SERVICE TIME: 1015 to 1110 ROOM: [place] [address] Recommended Discharge Disposition: Home PT Anticipated Discharge Needs: Family Training;Equipment;Supervision at Home PT Recommendations to Nursing: Ambulate with device;To bathroom;OOB for Meals Device: Wheeled Walker Precautions/Activity Restrictions: Total Knee Replacement (bilateral) Precaution/Activity Restriction Comments: WBAT bilateral lower extremities Isolation Type: None ASSESSMENT : Patient initially with no pain behaviors, until PT began massage to quads; then pt began moaning and c/o back pain and cramping down entire legs; difficult to distract pt from pain. However, pt is approaching goal status and will be ready for discharge home by 05/23/18. Spouse is home with patient and can assist as needed. Patient Disposition at Start of Session: OOB in Chair Patient Disposition at End of Session: Supine in Bed;Call Power in Reach Tolerance Limited By Pain Physical Therapy Problem List: Decreased Range Of Motion;Decreased Strength;Functional Mobility Impairment Patient /Caregiver Goals: Go Home Learning/Educational Needs: Discharge Plan;Equipment;Family Education/Training;Functional Activities/Mobility;Rehabilitation Techniques and Procedures;Precautions Goals for Plan of Care: Able to perform HEP with: Independent Transfer supine to/from sit with: Independent Transfer sit to/from stand with: Independent Ambulate with: Independent Distance: 150 Device: Wheeled Walker Ambulate up and down curb step with: Modified Independent Device: Cane Ambulate up and down steps with: Modified Independent Number of steps: 2 Device: Rail ROM: 0-95 B Progress Toward Goals: Progressing slower than expected Due To: pain, poor exercise tolerance Rehab Potential: Good PLAN: Treatment Frequency (times per week): 7 Treatment Duration (number): 3 Weeks Treatment Interventions: Joint Mobility;Strengthening;Functional Mobility Training Plan of Care developed with: Patient;Caregiver TREATMENT INTERVENTIONS: Therapy Diagnosis: Reduced mobility-other;Abnormalities of gait and mobility-other Interventions Provided: Therapeutic Exercise (20223);Neuromuscular Reeducation (92881);Gait Training (63306) Therapeutic Exercise (83276) Treatment Minutes: 30 2 units Skilled Intervention(s): Instruction in therapeutic exercise per flowsheet Gait Training (85376) Treatment Minutes: 10 1 unit Skilled Intervention(s): Instruction in correction of gait deviations Manual Therapy (38817) Treatment Minutes: 10 1 unit Skilled Intervention: Manual skills to improve joint mobility, range of motion, and decrease pain. STM bilateral quads to relax spasm and improve ROM Total Timed Code Treatment Minutes: 50 Total Treatment Time (minutes): 55 SUBJECTIVE: Current Hospital Course: Chart reviewed and no significant medical updates relevant to therapy were noted Reason for Physical Therapy Consult : s/p B TKA presents for post op rehab Relevant Past Medical History: left meniscus repair, degenerative disc disease in back, ankylosing spondylitis, sciatica on left side Patient Report: Patient reports less sharp pains, pain is more of an ache now. C/O not sleeping well due to pain in tailbone and hip. Home Environment Patient Lives With: Spouse Assistance Available: 24 Hour Entry To Home: Stairs;Without Rail Number Of Stairs Into Home: 1 (+1) Tub/Shower Type: tub/shower combo Laundry: main floor laundry Equipment Owned: Commode-Raised;Standard Walker;Wheeled Walker;Rollator;Shower Chair;Front Facer;Grab Bars-Shower Prior Functional Level: Within Functional Limits OBJECTIVE: CURRENT FUNCTIONAL STATUS: Gross Motor Function Range of Motion: WFL Except;Left LE Measurement;Right LE Measurement Right Knee ROM: 95 Left Knee ROM: 95 Strength: WFL Except;Right LE Measurement;Left LE Measurement Right Hip Flexion Strength: 4/5 Right Hip Extension Strength: 4-/5 Right Knee Extension Strength: 4-/5 Left Hip Flexion Strength: 4/5 Left Hip Extension Strength: 4-/5 Left Knee Extension Strength: 4-/5 Functional Mobility Assist Level Additional Information Rolling Independent Supine to Sit Independent Sit to Supine Independent Scooting Independent Sit to Stand Stand By Assistance Stand to Sit Stand By Assistance Bed to Chair Stand By Assistance Bed To Chair Transfer Type: Stand Pivot Bed To Chair Transfer Equipment: Wheeled Walker Toilet/Commode Stand By Assistance Gait Stand By Assistance Gait Device: Wheeled Walker Gait Distance (feet): 150 Stairs Minimal Assistance Stairs Device: Rail (Bilateral) Number of Stairs: 4 Curb Step Contact Guard Assistance Wheeled Walker Car Transfer Gait Deviations Right Lower Extremity: Heel strike during initial stance decreased;Push-off during terminal stance decreased;Knee flexion during stance increased Gait Deviations Left Lower Extremity: Heel strike during initial stance decreased;Push-off during terminal stance decreased;Knee flexion during stance increased General Gait Deviations: Flexed trunk posture;Wide base of support;Non-functional gait speed Please see discipline specific clinical documentation flowsheet for complete details for this therapy evaluation/treatment. SIGNATURE: Mary Agudelo PT PATIENT NAME: Dinah Cool DATE: May 19, 2018 TIME: 11:16 AM THERAPY NT Observed: 05/19/2018 Status: COMPLETED Source: [place] 9:22 AM [facility] REPOS[facility] HNO ID: [id number] Author: Kraig (OtRIRI Farmer/Mark Service: Occupational Therapy Author Type: Occupational Therapist Type: Therapy (PT/OT/Speech/Resp) Filed: 05/19/2018 9:29 AM Note Text: Occupational Therapy [facility] SERVICE DATE: 05/19/2018 SERVICE TIME: 829 to 914 ROOM: [place] [address] Recommended Discharge Disposition: Home OT Recommended Discharge Equipment: To Be Determined OT Recommendations to Nursing: To Bathroom for ADL?s /and or Toileting;OOB for meals;With assist of 1 person Equipment: Standard Walker Precautions/Activity Restrictions: Total Knee Replacement (bilateral) Precaution/Activity Restriction Comments: WBAT bilateral lower extremities Isolation Type: None ASSESSMENT: Patient presents with decreased mobility secondary to bilateral knee pain and back pain, decreased ADL secondary to knee pain and back pain, generalized weakness. Requires skilled OT for ADL retraining, transfer/functional mobility training, strengthening and increasing activity tolerance.. Patient Disposition at Start of Session: (side lying in bed) Patient Disposition at End of Session: OOB in Chair;Call Power in Reach Tolerated Full Session Pain Occupational Therapy Problem List: Pain;Safety Deficits;Impaired Self Care;Decreased Activity Tolerance;Decreased Strength;Functional Mobility Impairment Patient /Caregiver Goals: Go Home;Care For Self Learning/Educational Needs: Family Education/Training;Functional Activities/Mobility;Pain Management;Precautions;Rehabilitation Techniques and Procedures;Safety;Self Care Goals for Plan of Care: Able to perform HEP with: Independent Upper Body Bathing with: Set Up Upper Body Dressing with: Set Up Lower Body Bathing with: Stand By Assistance Lower Body Dressing with: Stand By Assistance Toilet Hygiene with: Supervision Chair Transfer with: Modified Independent Toilet Transfer with: Modified Independent Tub Transfer with: Supervision Kitchen Mobility Tasks with: Supervision Progress Toward Goals: Progressing as expected Rehab Potential: Good PLAN: Treatment Frequency (times per week): 5 Treatment Duration (number): 2 Weeks Treatment Interventions: Education;Self Care / Home Management;Strengthening;Functional Mobility Training;Neuromuscular Re-education;Pain Management Plan of Care developed with: Patient;Caregiver TREATMENT INTERVENTIONS: Therapy Diagnosis: Reduced mobility-other;Decreased activities of daily living (ADL);Muscle Weakness (generalized);Unsteadiness on feet Interventions Provided: Therapeutic Exercise (80048);Self [facility] (07870);Therapeutic Activity (10936) Therapeutic Exercise (83048) Treatment Minutes: 15 1 unit Skilled Intervention(s): Instruction in therapeutic exercise completed following exercises: 1. Scapular protraction/retraction with 3# therapy bar x 30 reps 2. Shoulder flexion with 3# therapy bar x 24 reps 3. Horizontal abduction/adduction 3# therapy bar x 30 reps 4. Elbow flexion/extension with 3# therapy bar x 30 reps Therapeutic Activity (94904) Treatment Minutes: 20 1 unit Skilled Intervention(s): Instruction in sit to and from stand technique with proper hand placement and body positioning at edge of bed/chair. Completed mobility down the rueda with focus on activity tolerance. Completed 2 x 3 minutes of standing at UBE (3 minutes forward and 3 minutes backwards) Self [facility] (81112) Treatment Minutes: 10 1 unit Skilled Intervention(s): Provided instruction, cuing and facilitation for lower body dressing with and without adative equipment. Educated on benefits of using the devices especially given patient's compromised back stability Total Timed Code Treatment Minutes: 45 Total Treatment Time (minutes): 45 SUBJECTIVE: Current Hospital Course: Chart reviewed and no significant medical updates relevant to therapy were noted Reason for Occupational Therapy Consult: OT eval secondary to bilateral knee replacement surgery Relevant Past Medical History: left meniscus repair, degenerative disc disease in back, ankylosing spondylitis, sciatica on left side Patient Report: I am stiff and sore all over the place but mostly my knees and my back Home Environment Patient Lives With: Spouse Assistance Available: 24 Hour Entry To Home: Stairs;Without Rail Number Of Stairs Into Home: 1 (+1) Tub/Shower Type: tub/shower combo Laundry: main floor laundry Equipment Owned: Commode-Raised;Standard Walker;Wheeled Walker;Rollator;Shower Chair;Front Facer;Grab Bars-Shower Prior Functional Level: Within Functional Limits OBJECTIVE: Gross Motor Function Hand Dominance: Right Range of Motion: WFL Strength: WFL (grossly 4/5 bilaterally) Current Activities of Daily Living Assist Level Feeding Set Up Grooming Set Up Bathing Upper Body Set Up (in shower) Bathing Lower Body Contact Guard Assistance (for standing aspects in shower) Dressing Upper Body Set Up Dressing Lower Body Set Up (completed without AE while sitting in bed) Toileting Stand By Assistance Instrumental Activities of Daily Living Assist Level Meal/Beverage Prep Total Assistance Light Cleaning Total Assistance Laundry Total Assistance Medication Management with Strategies Functional Mobility Assist Level Rolling Stand By Assistance Supine to Sit Stand By Assistance Sit to Supine Minimal Assistance (flat bed and no rail) Scooting Stand By Assistance Sit to Stand Supervision Stand to Sit Supervision Bed to Chair Supervision Stand Pivot Wheeled Walker;Gait Belt Toilet/Commode Stand By Assistance Tub Transfer Stand By Assistance (and verbal cues using extended tub bench) Shower Transfer Contact Guard Assistance (and verbal cues for technique) Functional Mobility Supervision Wheeled Walker Car Transfer Balance: Dynamic Standing Dynamic Standing Balance: Stand By Assistance Activity Tolerance: Standing Activity Standing Activity: UBE Standing Activity Tolerance (in minutes): 6 Please see discipline specific clinical documentation flowsheet for complete details for this therapy evaluation/treatment. SIGNATURE: RIRI Parada/Mark PATIENT NAME: Dinah Cool DATE: May 19, 2018 TIME: 9:22 AM MDRD EGFR Collected: 05/19/2018 Status: F Source: [facility] 5:55 AM [facility]ALTH SYSTEM REPOSITORY TYPE CODE TESTS RESULT OUT OF RANGE REFERENCE UNITS LAB LGFRF(LOINC >60mL/min/1.73m ) 2 eGFR >60 Result Comment: If the patient is , multiply the result by 1.210. Performed By: #### LGFR #### [place] [address] BASIC PANEL Collected: 05/19/2018 Status: F Source: [facility] 5:55 AM HEALTH SYSTEM REPOSITORY TYPE CODE TESTS RESULT OUT OF REFERENCE UNITS RANGE LAB ENERGY ENGINEER(LOINC) 136-145 mEq/L Low Sodium Blood 134 LAB LK(LOINC) 3.5-5.1 mEq/L Potassium Blood 4.5 LAB LCL(LOINC) 98-107 mEq/L Chloride Blood 104 LAB LCO2(LOINC 21-32 mEq/L ) CO2 Blood 29 LAB LGLU(LOINC 70-99 mg/dL ) Glucose High Blood 111 LAB LBUN(LOINC 7-25 mg/dL ) BUN Blood 14 LAB LCREA(LOIN 0.51-0.95 mg/dL C) Creatinine Blood 0.61 LAB LCA(LOINC) 8.5-10.1 mg/dL Calcium Blood 8.9 LAB LANGP(LOIN 8-20 C) Low Anion Gap 5 LAB LBNCR(LOIN 10-20 C) High BUN/Creatinine 23 Ratio Performed By: #### LP8 #### [place] [address] NURSING PROG Observed: 05/19/2018 Status: COMPLETED Source: [place] 12:39 AM [facility] REPOSITORY HNO ID: [id number] Author: Marah (Rn) FARZAD Hendrix Service: ASSESSMENT Author Type: Registered Nurse Type: Nursing Progress Note Filed: 05/19/2018 1:04 AM Note Text: Pt c/o of sciatic pain per her hx, Flexeril 10 mg PO given THERAPY NT Observed: 05/18/2018 Status: COMPLETED Source: [place] 3:51 PM [facility] REPOSITORY HNO ID: [id number] Author: Mary BradfordPt) JUN Agudelo Service: Physical Therapy Author Type: Physical Therapist Type: Therapy (PT/OT/Speech/Resp) Filed: 05/18/2018 3:56 PM Note Text: Physical Therapy [facility] SERVICE DATE: 05/18/2018 SERVICE TIME: 1500 to 1545 ROOM: [place] [address] Recommended Discharge Disposition: Home PT Anticipated Discharge Needs: Family Training;Equipment;Supervision at Home PT Recommendations to Nursing: Ambulate with device;To bathroom;OOB for Meals Device: Wheeled Walker Precautions/Activity Restrictions: Total Knee Replacement (bilateral) Precaution/Activity Restriction Comments: WBAT bilateral lower extremities Isolation Type: None ASSESSMENT : Patient continues to focus on pain instead of progress with ROM and ambulation. Patient Disposition at Start of Session: OOB in Chair Patient Disposition at End of Session: Supine in Bed;Call Power in Reach Tolerance Limited By Pain Physical Therapy Problem List: Decreased Range Of Motion;Decreased Strength;Functional Mobility Impairment Patient /Caregiver Goals: Go Home Learning/Educational Needs: Discharge Plan;Equipment;Family Education/Training;Functional Activities/Mobility;Rehabilitation Techniques and Procedures;Precautions Goals for Plan of Care: Able to perform HEP with: Independent Transfer supine to/from sit with: Independent Transfer sit to/from stand with: Independent Ambulate with: Independent Distance: 150 Device: Wheeled Walker Ambulate up and down curb step with: Modified Independent Device: Cane Ambulate up and down steps with: Modified Independent Number of steps: 2 Device: Rail ROM: 0-95 B Progress Toward Goals: Progressing slower than expected Due To: pain, poor exercise tolerance Rehab Potential: Good PLAN: Treatment Frequency (times per week): 7 Treatment Duration (number): 3 Weeks Treatment Interventions: Joint Mobility;Strengthening;Functional Mobility Training Plan of Care developed with: Patient;Caregiver TREATMENT INTERVENTIONS: Therapy Diagnosis: Reduced mobility-other;Abnormalities of gait and mobility-other Interventions Provided: Therapeutic Exercise (19644);Neuromuscular Reeducation (35141);Gait Training (68403) Therapeutic Exercise (97304) Treatment Minutes: 30 2 units Skilled Intervention(s): Nustep [id number], seat 8; prone passive quad stretching [id number], prone HC curls; supine SAQ, seated knee flexion stretches [id number] gentle and 3x5 sec strong Gait Training (61146) Treatment Minutes: 15 1 unit Skilled Intervention(s): Instruction in sit to stand technique with proper hand placement and body positioning at edge of bed/chair, Instruction in sequencing, gait pattern and Instruction in correction of gait deviations Total Timed Code Treatment Minutes: 45 Total Treatment Time (minutes): 45 SUBJECTIVE: Current Hospital Course: Chart reviewed and no significant medical updates relevant to therapy were noted Reason for Physical Therapy Consult : s/p B TKA presents for post op rehab Relevant Past Medical History: left meniscus repair, degenerative disc disease in back, ankylosing spondylitis, sciatica on left side Patient Report: Patient continues to c/o increased pain today Home Environment Patient Lives With: Spouse Assistance Available: 24 Hour Entry To Home: Stairs;Without Rail Number Of Stairs Into Home: 1 (+1) Tub/Shower Type: tub/shower combo Laundry: main floor laundry Equipment Owned: Commode-Raised;Standard Walker;Wheeled Walker;Rollator;Shower Chair;Front Facer;Grab Bars-Shower Prior Functional Level: Within Functional Limits OBJECTIVE: CURRENT FUNCTIONAL STATUS: Gross Motor Function Range of Motion: WFL Except;Left LE Measurement;Right LE Measurement Right Knee ROM: ~90 Left Knee ROM: ~95 Strength: WFL Except;Right LE Measurement;Left LE Measurement Right Hip Flexion Strength: 4/5 Right Hip Extension Strength: 4-/5 Right Knee Extension Strength: 4-/5 Left Hip Flexion Strength: 4/5 Left Hip Extension Strength: 4-/5 Left Knee Extension Strength: 4-/5 Functional Mobility Assist Level Additional Information Rolling Independent Supine to Sit Stand By Assistance Sit to Supine Verbal Cues Only Scooting Independent Sit to Stand Stand By Assistance Stand to Sit Stand By Assistance Bed to Chair Stand By Assistance Bed To Chair Transfer Type: Stand Pivot Bed To Chair Transfer Equipment: Wheeled Walker Toilet/Commode Stand By Assistance Gait Stand By Assistance Gait Device: Wheeled Walker Gait Distance (feet): 125 Stairs Minimal Assistance Stairs Device: Rail (Bilateral) Number of Stairs: 4 Curb Step Contact Guard Assistance Wheeled Walker Car Transfer Gait Deviations Right Lower Extremity: Heel strike during initial stance decreased;Push-off during terminal stance decreased;Knee flexion during stance increased Gait Deviations Left Lower Extremity: Heel strike during initial stance decreased;Push-off during terminal stance decreased;Knee flexion during stance increased General Gait Deviations: Flexed trunk posture;Wide base of support;Non-functional gait speed Please see discipline specific clinical documentation flowsheet for complete details for this therapy evaluation/treatment. SIGNATURE: Mary Agudelo PT PATIENT NAME: Dinah Cool DATE: May 18, 2018 TIME: 3:53 PM THERAPY NT Observed: 05/18/2018 Status: COMPLETED Source: [place] 1:27 PM [facility] REPOSITORY HNO ID: [id number] Author: Abril Olivier OT Service: Occupational Therapy Author Type: Occupational Therapist Type: Therapy (PT/OT/Speech/Resp) Filed: 05/18/2018 1:37 PM Note Text: Occupational Therapy [facility] SERVICE DATE: 05/18/2018 SERVICE TIME: 45 to 1030 ROOM: [place] [address] Recommended Discharge Disposition: Home OT Recommended Discharge Equipment: To Be Determined OT Recommendations to Nursing: To Bathroom for ADL?s /and or Toileting;OOB for meals;With assist of 1 person Equipment: Standard Walker Precautions/Activity Restrictions: Total Knee Replacement (bilateral) Precaution/Activity Restriction Comments: WBAT bilateral lower extremities Isolation Type: None ASSESSMENT: Patient presents with ability to complete tub transfers at a stand by assist level using extended tub bench; improving use of adaptive equipment for lower body ADLs to promote proper body mechanics to protect her back; spouse states understanding of necessary equipment for pt upon discharge.. Requires skilled OT for continued ADL training, functional mobility training, balance training, strengthening, kitchen mobility training, and continued instruction/training to spouse re: type and amount of assistance pt will require upon discharge.. Patient Disposition at Start of Session: Supine in Bed;Call Power in Reach Patient Disposition at End of Session: OOB in Chair;Call Power in Reach;Family Present (spouse) Tolerated Full Session (with complaints of knee stiffness/pain) Pain Occupational Therapy Problem List: Pain;Safety Deficits;Impaired Self Care;Decreased Activity Tolerance;Decreased Strength;Functional Mobility Impairment Patient /Caregiver Goals: Go Home;Care For Self Learning/Educational Needs: Family Education/Training;Functional Activities/Mobility;Pain Management;Precautions;Rehabilitation Techniques and Procedures;Safety;Self Care Goals for Plan of Care: Able to perform HEP with: Independent Upper Body Bathing with: Set Up Upper Body Dressing with: Set Up Lower Body Bathing with: Stand By Assistance Lower Body Dressing with: Stand By Assistance Toilet Hygiene with: Supervision Chair Transfer with: Modified Independent Toilet Transfer with: Modified Independent Tub Transfer with: Supervision Kitchen Mobility Tasks with: Supervision Progress Toward Goals: Progressing as expected Rehab Potential: Good PLAN: Treatment Frequency (times per week): 5 Treatment Duration (number): 2 Weeks Treatment Interventions: Education;Self Care / Home Management;Strengthening;Functional Mobility Training;Neuromuscular Re-education;Pain Management Plan of Care developed with: Patient;Caregiver TREATMENT INTERVENTIONS: Therapy Diagnosis: Reduced mobility-other;Decreased activities of daily living (ADL);Muscle Weakness (generalized);Unsteadiness on feet Interventions Provided: Therapeutic Activity (39153);Self [facility] (26870) Therapeutic Activity (38318) Treatment Minutes: 25 2 units Skilled Intervention(s): Instruction in sit to and from stand technique with proper hand placement and body positioning at edge of bed/chair Education with pt in proper technique to complete tub transfers using extended tub transfer bench. Instruction to spouse re: need for elevated toilet seat with armrests/3-in-1 commode for home. Discussed extended tub bench and instructed pt and spouse to talk to home health therapist further re: tub seating/transfers upon discharge. Handouts provided re bathroom DME and information re: equipment loan program through [facility]. Instructed pt and spouse in type of adaptive equipment pt has been using for lower body ADLs and handout provided re: adaptive equipment. Pt and spouse state understanding of all information discussed. Self [facility] (47097) Treatment Minutes: 15 1 unit Skilled Intervention(s): Instructed in post-op instructions during ADLs including TKR precautions Provided instruction, cuing and facilitation for lower body dressing with use of university librarian, dressing stick, sock aid, and long shoe horn to varsha shorts, socks, slip on shoes. Instructed in need for proper body mechanics as pt has complaints of back pain (chronic) and explained that use of adaptive equipment will help protect her back and possibly reduce pain with regular use. Education in proper safety awareness in toilet transfers and in hygiene and clothing aspects of toileting. Total Timed Code Treatment Minutes: 40 Total Treatment Time (minutes): 40 SUBJECTIVE: Current Hospital Course: Chart reviewed and no significant medical updates relevant to therapy were noted Reason for Occupational Therapy Consult: OT eval secondary to bilateral knee replacement surgery Relevant Past Medical History: left meniscus repair, degenerative disc disease in back, ankylosing spondylitis, sciatica on left side Patient Report: Pt's spouse states he has a toilet frame for home already. Pt states she is continuing to have much stiffness in both knees. Home Environment Patient Lives With: Spouse Assistance Available: 24 Hour Entry To Home: Stairs;Without Rail Number Of Stairs Into Home: 1 (+1) Tub/Shower Type: tub/shower combo Laundry: main floor laundry Equipment Owned: Commode-Raised;Standard Walker;Wheeled Walker;Rollator;Shower Chair;Front Facer;Grab Bars-Shower Prior Functional Level: Within Functional Limits OBJECTIVE: Gross Motor Function Hand Dominance: Right Range of Motion: WFL Strength: WFL (grossly 4/5 bilaterally) Current Activities of Daily Living Assist Level Feeding Set Up Grooming Set Up Bathing Upper Body Set Up (in shower) Bathing Lower Body Contact Guard Assistance (for standing aspects in shower) Dressing Upper Body Set Up Dressing Lower Body Stand By Assistance (with use of adapative equipment; verbal cues) Toileting Stand By Assistance Instrumental Activities of Daily Living Assist Level Meal/Beverage Prep Total Assistance Light Cleaning Total Assistance Laundry Total Assistance Medication Management with Strategies Functional Mobility Assist Level Rolling Contact Guard Assistance Supine to Sit Stand By Assistance (elevated head of bed and use of rail) Sit to Supine Minimal Assistance (flat bed and no rail) Scooting Stand By Assistance Sit to Stand Stand By Assistance Stand to Sit Stand By Assistance Bed to Chair Contact Guard Assistance Stand Pivot Standard Walker;Gait Belt Toilet/Commode Stand By Assistance Tub Transfer Stand By Assistance (and verbal cues using extended tub bench) Shower Transfer Contact Guard Assistance (and verbal cues for technique) Functional Mobility Car Transfer Balance: Dynamic Standing Dynamic Standing Balance: Stand By Assistance Activity Tolerance: Standing Activity Standing Activity: UBE Standing Activity Tolerance (in minutes): 2.25 Please see discipline specific clinical documentation flowsheet for complete details for this therapy evaluation/treatment. SIGNATURE: RIRI Miller/Mark PATIENT NAME: Dinah Cool DATE: May 18, 2018 TIME: 1:27 PM THERAPY NT Observed: 05/18/2018 Status: COMPLETED Source: [place] 11:49 AM [facility] REPOSITORY [facility] ID: [id number] Author: Mary BradfordPtRamin Agudelo PT Service: Physical Therapy Author Type: Physical Therapist Type: Therapy (PT/OT/Speech/Resp) Filed: 05/18/2018 11:51 AM Note Text: Physical Therapy [facility] Treatment SERVICE DATE: 05/18/2018 SERVICE TIME: 1100 to 1145 ROOM: [place] [address] Recommended Discharge Disposition: Home PT Anticipated Discharge Needs: Family Training;Equipment;Supervision at Home PT Recommendations to Nursing: Ambulate with device;To bathroom;OOB for Meals Device: Wheeled Walker Precautions/Activity Restrictions: Total Knee Replacement (bilateral) Precaution/Activity Restriction Comments: WBAT bilateral lower extremities Isolation Type: None ASSESSMENT : Patient with improving ROM despite ongoing pain behaviors. Still needs instruction in home exercise program and STM for quad tightness. Patient Disposition at Start of Session: OOB in Chair Patient Disposition at End of Session: Supine in Bed;Call Power in Reach Tolerance Limited By Pain Physical Therapy Problem List: Decreased Range Of Motion;Decreased Strength;Functional Mobility Impairment Patient /Caregiver Goals: Go Home Learning/Educational Needs: Discharge Plan;Equipment;Family Education/Training;Functional Activities/Mobility;Rehabilitation Techniques and Procedures;Precautions Goals for Plan of Care: Able to perform HEP with: Independent Transfer supine to/from sit with: Independent Transfer sit to/from stand with: Independent Ambulate with: Independent Distance: 150 Device: Wheeled Walker Ambulate up and down curb step with: Modified Independent Device: Cane Ambulate up and down steps with: Modified Independent Number of steps: 2 Device: Rail ROM: 0-95 B Progress Toward Goals: Progressing slower than expected Due To: pain, poor exercise tolerance Rehab Potential: Good PLAN: Treatment Frequency (times per week): 7 Treatment Duration (number): 3 Weeks Treatment Interventions: Joint Mobility;Strengthening;Functional Mobility Training Plan of Care developed with: Patient;Caregiver TREATMENT INTERVENTIONS: Therapy Diagnosis: Reduced mobility-other;Abnormalities of gait and mobility-other Interventions Provided: Therapeutic Exercise (27745);Neuromuscular Reeducation (28635);Gait Training (50479) Therapeutic Exercise (10983) Treatment Minutes: 20 1 unit Skilled Intervention(s): Instruction in therapeutic exercise per flowsheet. Verbal cues for proper technique at times Gait Training (67043) Treatment Minutes: 10 1 unit Skilled Intervention(s): Instruction in correction of gait deviations and Instruction in stair negotiation Manual Therapy (47259) Treatment Minutes: 15 1 unit Skilled Intervention: Manual skills to improve joint mobility, range of motion, and decrease pain. STM bilateral quads to reduce tightness and improve ROM Total Timed Code Treatment Minutes: 45 Total Treatment Time (minutes): 45 SUBJECTIVE: Current Hospital Course: Chart reviewed and no significant medical updates relevant to therapy were noted Reason for Physical Therapy Consult : s/p B TKA presents for post op rehab Relevant Past Medical History: left meniscus repair, degenerative disc disease in back, ankylosing spondylitis, sciatica on left side Patient Report: Patient states her legs are more sore today vs yesterday. Home Environment Patient Lives With: Spouse Assistance Available: 24 Hour Entry To Home: Stairs;Without Rail Number Of Stairs Into Home: 1 (+1) Tub/Shower Type: tub/shower combo Laundry: main floor laundry Equipment Owned: Commode-Raised;Standard Walker;Wheeled Walker;Rollator;Shower Chair;Front Facer;Grab Bars-Shower Prior Functional Level: Within Functional Limits OBJECTIVE: CURRENT FUNCTIONAL STATUS: Gross Motor Function Range of Motion: WFL Except;Left LE Measurement;Right LE Measurement Right Knee ROM: ~90 Left Knee ROM: ~95 Strength: WFL Except;Right LE Measurement;Left LE Measurement Right Hip Flexion Strength: 4/5 Right Hip Extension Strength: 4-/5 Right Knee Extension Strength: 4-/5 Left Hip Flexion Strength: 4/5 Left Hip Extension Strength: 4-/5 Left Knee Extension Strength: 4-/5 Functional Mobility Assist Level Additional Information Rolling Independent Supine to Sit Stand By Assistance Sit to Supine Verbal Cues Only Scooting Independent Sit to Stand Stand By Assistance Stand to Sit Stand By Assistance Bed to Chair Stand By Assistance Bed To Chair Transfer Type: Stand Pivot Bed To Chair Transfer Equipment: Wheeled Walker Toilet/Commode Stand By Assistance Gait Stand By Assistance Gait Device: Wheeled Walker Gait Distance (feet): 100 Stairs Minimal Assistance Stairs Device: Rail (Bilateral) Number of Stairs: 4 Curb Step Contact Guard Assistance Wheeled Walker Car Transfer Gait Deviations Right Lower Extremity: Heel strike during initial stance decreased;Push-off during terminal stance decreased;Knee flexion during stance increased Gait Deviations Left Lower Extremity: Heel strike during initial stance decreased;Push-off during terminal stance decreased;Knee flexion during stance increased General Gait Deviations: Flexed trunk posture;Wide base of support;Non-functional gait speed Please see discipline specific clinical documentation flowsheet for complete details for this therapy evaluation/treatment. SIGNATURE: Mary Agudelo PT PATIENT NAME: Dinah Cool DATE: May 18, 2018 TIME: 11:49 AM HEMOGRAM/DIFF Collected: 05/18/2018 Status: P Source: [facility] 7:30 AM HEALTH SYSTEM REPOSITORY TYPE CODE TESTS RESULT OUT OF REFERENCE UNITS RANGE LAB LWBC(LOINC) 4.8-10.8 thou/cmm WBC 8.7 LAB LRBC(LOINC) 4.20-5.40 mil/cmm Low RBC 3.57 LAB LHGB(LOINC) 12.0-16.0 g/dL Low Hgb 10.6 LAB LHCT(LOINC) 37.0-47.0 % Low Hct 33.4 LAB LMCV(LOINC) 81.0-99.0 fl MCV 93.6 LAB LMCH(LOINC) 27.0-31.0 pg MCH 29.7 LAB LMCHC(LOINC 32.0-36.0 % ) Low MCHC 31.7 LAB LRDW(LOINC) 11.5-15.9 % RDW 12.6 LAB LPLT(LOINC) 150-400 thou/cmm Platelet 331 LAB LMPV(LOINC) 7.1-10.5 fl MPV 9.8 Performed By: #### LCBCD #### [facility] [address] [place] [id number] HEMOGRAM/MANUAL DIFF Collected: 05/18/2018 Status: F Source: [place] 7:[address] [facility] REPOSITORY TYPE CODE TESTS RESULT OUT OF REFERENCE UNITS RANGE LAB LWBC(LOINC 4.8-10.8 thou/cmm ) WBC 8.7 LAB LRBC(LOINC 4.20-5.40 mil/cmm ) RBC Low 3.57 LAB LHGB(LOINC 12.0-16.0 g/dL ) Hgb Low 10.6 LAB LHCT(LOINC 37.0-47.0 % ) Hct Low 33.4 LAB LMCV(LOINC 81.0-99.0 fl ) MCV 93.6 LAB LMCH(LOINC 27.0-31.0 pg ) MCH 29.7 LAB LMCHC(LOIN 32.0-36.0 % C) MCHC Low 31.7 LAB LRDW(LOINC 11.5-15.9 % ) RDW 12.6 LAB LPLT(LOINC 150-400 thou/cmm ) Platelet 331 LAB LMPV(LOINC 7.1-10.5 fl ) MPV 9.8 LAB LDTYP(LOIN C) Diff Type Manual Diff LAB LSEGT(LOIN % C) Seg Neutrophil 74.0 LAB LLYMP(LOIN % C) Lymphocyte 14.0 LAB LMNO(LOINC % ) Monocyte 8.0 LAB NOLA(LOINC % ) Eosinophil 2.0 LAB LBASO(LOIN % C) Basophil 1.0 LAB LMETA(LOIN % C) Metamyelocytes 1.0 LAB LSEGN(LOIN 3.00-5.67 thou/cmm C) Abs. Neut (ANC) High 6.52 LAB LLYMN(LOIN 1.50-3.65 thou/cmm C) Abs. Lymph Low 1.22 LAB LMONN(LOIN 0.20-1.00 thou/cmm C) Abs. Miller 0.70 LAB LEOSN(LOIN 0.00-0.41 thou/cmm C) Abs. Eosin 0.17 LAB LBASN(LOIN 0.00-0.08 thou/cmm C) Abs. Baso High 0.09 LAB LPLES(LOIN C) Platelet Estimate Normal LAB LTOXC(LOIN C) Toxic Granulation Few LAB LANIS(LOIN C) Anisocytosis Few LAB LPOLY(LOIN C) Polychromasia Few Performed By: #### LMCBD #### [place] [address] BASIC PANEL Collected: 05/18/2018 Status: F Source: [facility] 7:30 AM HEALTH SYSTEM REPOSITORY TYPE CODE TESTS RESULT OUT OF REFERENCE UNITS RANGE LAB ENERGY ENGINEER(LOINC) 136-145 mEq/L Low Sodium Blood 133 LAB LK(LOINC) 3.5-5.1 mEq/L Potassium Blood 4.5 LAB LCL(LOINC) 98-107 mEq/L Chloride Blood 102 LAB LCO2(LOINC 21-32 mEq/L ) CO2 Blood 29 LAB LGLU(LOINC 70-99 mg/dL ) Glucose High Blood 127 LAB LBUN(LOINC 7-25 mg/dL ) BUN Blood 15 LAB LCREA(LOIN 0.51-0.95 mg/dL C) Creatinine Blood 0.64 LAB LCA(LOINC) 8.5-10.1 mg/dL Calcium Blood 8.7 LAB LANGP(LOIN 8-20 C) Low Anion Gap 7 LAB LBNCR(LOIN 10-20 C) High BUN/Creatinine 23 Ratio Performed By: #### LP8 #### [place] [address] THERAPY NT Observed: 05/17/2018 Status: COMPLETED Source: [place] 5:03 PM [facility] REPOSITORY [facility] ID: [id number] Author: Lucy BradfordPtRamin Pérez PT Service: Physical Therapy Author Type: Physical Therapist Type: Therapy (PT/OT/Speech/Resp) Filed: 05/17/2018 5:09 PM Note Text: Physical Therapy [facility] Facility Treatment SERVICE DATE: 05/17/2018 SERVICE TIME: 1345 to 1445 ROOM: [place] [address] Recommended Discharge Disposition: Home PT Anticipated Discharge Needs: Family Training;Equipment;Supervision at Home PT Recommendations to Nursing: Ambulate with device;To bathroom;OOB for Meals Device: Wheeled Walker Precautions/Activity Restrictions: Total Knee Replacement (bilateral) Precaution/Activity Restriction Comments: WBAT bilateral lower extremities Isolation Type: None ASSESSMENT : Patient demonstrates pain behaviors with moaning through much of treatment. Patient demonstrates poor relaxation skills with poor ability to relax quadricept muscle. Responds best to verbal distraction to achieve therapy treatment goals. Patient Disposition at Start of Session: OOB in Chair Patient Disposition at End of Session: Supine in Bed;Call Power in Reach Tolerated Full Session Without limitations Physical Therapy Problem List: Decreased Range Of Motion;Decreased Strength;Functional Mobility Impairment Patient /Caregiver Goals: Go Home Learning/Educational Needs: Discharge Plan;Equipment;Family Education/Training;Functional Activities/Mobility;Rehabilitation Techniques and Procedures;Precautions Goals for Plan of Care: Able to perform HEP with: Independent Transfer supine to/from sit with: Independent Transfer sit to/from stand with: Independent Ambulate with: Independent Distance: 150 Device: Wheeled Walker Ambulate up and down curb step with: Modified Independent Device: Cane Ambulate up and down steps with: Modified Independent Number of steps: 2 Device: Rail ROM: 0-95 B Progress Toward Goals: Progressing slower than expected Due To: pain, poor exercise tolerance Rehab Potential: Good PLAN: Treatment Frequency (times per week): 7 Treatment Duration (number): 3 Weeks Treatment Interventions: Joint Mobility;Strengthening;Functional Mobility Training Plan of Care developed with: Patient;Caregiver TREATMENT INTERVENTIONS: Therapy Diagnosis: Reduced mobility-other;Abnormalities of gait and mobility-other Interventions Provided: Therapeutic Exercise (93174);Neuromuscular Reeducation (05143);Gait Training (33286) Therapeutic Exercise (28179) Treatment Minutes: 15 1 unit Skilled Intervention(s): Instruction in therapeutic exercise Nustep for 7 minutes seat 8 L2, supiine QS and prone HS curl, 10x B Facilitation of muscle control, optimal recruitment and alignment for quad set with verbal, visula and tactile cues Gait Training (18465) Treatment Minutes: 15 1 unit Skilled Intervention(s): Instruction in sequencing, gait pattern and Instruction in correction of gait deviations Neuromuscular Re-Education (74433) Treatment Minutes: 30 2 units Skilled Intervention(s): education or relaxation techniques and contract relax of quad. Manual massage to facilitate muscle relaxation Total Timed Code Treatment Minutes: 60 Total Treatment Time (minutes): 60 SUBJECTIVE: Current Hospital Course: Chart reviewed and no significant medical updates relevant to therapy were noted Reason for Physical Therapy Consult : s/p B TKA presents for post op rehab Relevant Past Medical History: left meniscus repair, degenerative disc disease in back, ankylosing spondylitis, sciatica on left side Patient Report: Continues to report high levels of pain to back and knees. Home Environment Patient Lives With: Spouse Assistance Available: 24 Hour Entry To Home: Stairs;Without Rail Number Of Stairs Into Home: 1 (+1) Tub/Shower Type: tub/shower combo Laundry: main floor laundry Equipment Owned: Commode-Raised;Standard Walker;Wheeled Walker;Rollator;Shower Chair;Front Facer;Grab Bars-Shower Prior Functional Level: Within Functional Limits OBJECTIVE: CURRENT FUNCTIONAL STATUS: Gross Motor Function Range of Motion: WFL Except;Left LE Measurement;Right LE Measurement Right Knee ROM: 84 Left Knee ROM: 88 Strength: WFL Except;Right LE Measurement;Left LE Measurement Right Hip Flexion Strength: 4/5 Right Hip Extension Strength: 4-/5 Right Knee Extension Strength: 4-/5 Left Hip Flexion Strength: 4/5 Left Hip Extension Strength: 4-/5 Left Knee Extension Strength: 4-/5 Functional Mobility Assist Level Additional Information Rolling Independent Supine to Sit Stand By Assistance Sit to Supine Verbal Cues Only Scooting Independent Sit to Stand Stand By Assistance Stand to Sit Stand By Assistance Bed to Chair Stand By Assistance Bed To Chair Transfer Type: Stand Pivot Bed To Chair Transfer Equipment: Wheeled Walker Toilet/Commode Stand By Assistance Gait Stand By Assistance Gait Device: Wheeled Walker Gait Distance (feet): 100'+ Stairs Minimal Assistance Stairs Device: Rail (Bilateral) Number of Stairs: 4 Curb Step Contact Guard Assistance Wheeled Walker Car Transfer Gait Deviations Right Lower Extremity: Heel strike during initial stance decreased;Push-off during terminal stance decreased;Knee flexion during stance increased Gait Deviations Left Lower Extremity: Heel strike during initial stance decreased;Push-off during terminal stance decreased;Knee flexion during stance increased General Gait Deviations: Flexed trunk posture;Wide base of support;Non-functional gait speed Please see discipline specific clinical documentation flowsheet for complete details for this therapy evaluation/treatment. SIGNATURE: Lucy Pérez PT PATIENT NAME: Dinah Cool DATE: May 17, 2018 TIME: 5:03 PM PROGRESS Observed: 05/17/2018 Status: COMPLETED Source: [place] 4:55 PM [facility] REPOSITORY [facility] ID: [id number] Author: Brandie Guajardo (Jagdeep) Kellee Service: Family Practice Author Type: Nurse Practitioner Type: Progress Notes Filed: 05/17/2018 5:05 PM Note Text: INTERNAL MEDICINE PROGRESS NOTE SERVICE DATE: 05/17/2018 SERVICE TIME: 0145 PM ADMITTING PHYSICIAN: Edilia Johnston Subjective Subjective: Symptoms: Stable. She reports weakness. No shortness of breath, cough, chest pain, headache, diarrhea or anxiety. Diet: Adequate intake. Activity level: Impaired due to pain. Pain: She complains of pain that is moderate. She reports pain is unchanged. Pain is partially controlled and requiring pain medication. (Pain is 7/10 bilateral knees and low back). Current Facility-Administered Medications: oxyCODONE IR 10 mg tab(s) (ROXICODONE) 10 mg ORAL q 3 H PRN oxyCODONE IR 15 mg tab(s) (ROXICODONE) 15 mg ORAL q 3 H PRN estradiol - REMOVE PATCH OTHER q SUN And estrogen - VERIFY PATCH OTHER q 8 H aspirin, enteric coated 81 mg tab(s) 81 mg ORAL BID estradiol 0.05 mg/24 hr 1 Patch (CLIMARA) 1 Patch TRANSDERMAL q 1 WEEK cycloSPORINE 0.05 % 1 Drop (RESTASIS) 1 Drop BOTH EYES q 1 H PRN guaiFENesin 1,200 mg ER tab(s) (MUCINEX) 1,200 mg ORAL q [address] 40 mg tab(s) (PROTONIX) 40 mg ORAL DAILY (6 AM) acetaminophen 650 mg tab(s) (TYLENOL) 650 mg ORAL q 4 H PRN oxyCODONE IR 10 mg tab(s) (ROXICODONE) 10 mg ORAL q 12 H PRN polyethylene glycol 3350 17 g packet (MIRALAX, GLYCOLAX) 17 g ORAL DAILY PRN bisacodyl 10 mg suppository (DULCOLAX) 10 mg RECTAL DAILY PRN sodium phosphate-sodium bisphosphate 133 mL enema (FLEET) 133 mL RECTAL DAILY PRN cyclobenzaprine 10 mg tab(s) (FLEXERIL) 10 mg ORAL TID PRN INTERVAL HISTORY OF PRESENT ILLNESS: Patient having bilateral knee and lower back pain. Worse with physical therapy sessions. Lower back pain is chronic, she uses TENS unit, muscle rubs, repositioning usually. She sees pain management and has norco as needed at home. Denies SOB, abdominal pain, chest pains, difficulty urinating, constipation. Last BM was yesterday. Objective Objective: General Appearance: Comfortable. Vital signs: (most recent): Blood pressure 117/76, pulse 96, temperature 36.7 ?C (98.1 ?F), temperature source Oral, resp. rate 18, height 160 cm (5' 3), weight 71.7 kg (158 lb), SpO2 98 %. Vital signs are normal. Output: Producing urine and producing stool (Last BM 05/16). HEENT: Normal HEENT exam. Lungs: Normal effort and normal respiratory rate. Breath sounds clear to auscultation. She is not in respiratory distress. Heart: Normal rate. Regular rhythm. S1 normal and S2 normal. No murmur. Abdomen: Abdomen is soft and distended (patient states her abdomen is always distended, relates to multiple surgeries). Bowel sounds are normal. There is no abdominal tenderness. There is no mass. Extremities: Decreased range of motion. There is dependent edema (Bilateral lower extremities from knees down). Pulses: Distal pulses are intact. Neurological: Patient is oriented to person, place and time. (Patient sleeping upon entering room. Awoke easily with verbal and touch.). Pupils: Pupils are equal, round, and reactive to light. Skin: Warm and dry. There is ecchymosis (Bilateral lower extremities from knee down). (Bilateral knee incisions are dry and intact, no erythema, mild to moderate edema. No drainage. ) DATA: Diagnostic tests reviewed for today's visit: None Assessment/Plan Active Problems: Status post total bilateral knee replacement POA: Yes Assessment AND Plan: Continue PT/OT services. Continue oxy IR 10 -15 mg every 3 hours prn pain. Change tylenol to OTC. Check labs in am. Chronic back pain POA: Yes Assessment AND Plan: Continue current pain medications. Will f/u with pain management after discharge. Resolved Problems: * No resolved hospital problems. * Medication and Non-Pharmacologic VTE Prophylaxis/Anticoagulants Anticoagulant AND Antiplatelet Medications Start Dose Route Frequency Ordered Stop 05/18/18 0900 aspirin 81 mg chewable tab(s) 81 mg ORAL ONCE 05/17/18 1622 05/18/18 2059 05/17/18 2100 aspirin 81 mg chewable tab(s) 81 mg ORAL ONCE 05/17/18 1622 05/18/18 0859 05/12/18 2100 aspirin, enteric coated 81 mg tab(s) 81 mg ORAL 2 TIMES DAILY 05/12/18 1612 -- 05/12/18 1530 vte non-pharmacologic prophylaxis - none indicated (az,oh) 05/12/18 1530 activity - mobilize patient (az,la) VTE Prophylaxis: {IF CHANGING PROTOCOL REMEMBER TO PLACE ORDER: SIGNATURE: Brandie Goodson APRN.CNP PATIENT NAME: Dinah Cool DATE: May 17, 2018 TIME: 4:55 PM PAGER/CONTACT #: THERAPY NT Observed: 05/17/2018 Status: COMPLETED Source: [place] 1:15 PM [facility] [place] REPOSITORY [facility] ID: [id number] Author: Abril (OtRamin Olivier OT Service: Occupational Therapy Author Type: Occupational Therapist Type: Therapy (PT/OT/Speech/Resp) Filed: 05/17/2018 1:22 PM Note Text: Occupational Therapy [facility] Facility Treatment SERVICE DATE: 05/17/2018 SERVICE TIME: 1102 to 1150 ROOM: [place] [address] Recommended Discharge Disposition: Home OT Recommended Discharge Equipment: To Be Determined OT Recommendations to Nursing: To Bathroom for ADL?s /and or Toileting;OOB for meals;With assist of 1 person Equipment: Standard Walker Precautions/Activity Restrictions: Total Knee Replacement (bilateral) Precaution/Activity Restriction Comments: WBAT bilateral lower extremities Isolation Type: None ASSESSMENT: Patient presents with improved ability to complete sit to stand and commode transfers; limited standing tolerance. Pt with continual complaints of pain today.. Requires skilled OT for ADL training, functional mobility training including futher work on bed mobility skills as this is difficult for pt; tub transfer training; standing tolerance/strengthening; balance training; kitchen mobility training; instruction/training to spouse prior to discharge home.. Patient Disposition at Start of Session: OOB in Chair;Call Power in Reach Patient Disposition at End of Session: Supine in Bed;Call Power in Reach Tolerated Full Session (with continual complaints of pain but did participate) Pain Occupational Therapy Problem List: Pain;Safety Deficits;Impaired Self Care;Decreased Activity Tolerance;Decreased Strength;Functional Mobility Impairment Patient /Caregiver Goals: Go Home;Care For Self Learning/Educational Needs: Family Education/Training;Functional Activities/Mobility;Pain Management;Precautions;Rehabilitation Techniques and Procedures;Safety;Self Care Goals for Plan of Care: Able to perform HEP with: Independent Upper Body Bathing with: Set Up Upper Body Dressing with: Set Up Lower Body Bathing with: Stand By Assistance Lower Body Dressing with: Stand By Assistance Toilet Hygiene with: Supervision Chair Transfer with: Modified Independent Toilet Transfer with: Modified Independent Tub Transfer with: Supervision Kitchen Mobility Tasks with: Supervision Progress Toward Goals: Progressing as expected Rehab Potential: Good PLAN: Treatment Frequency (times per week): 5 Treatment Duration (number): 2 Weeks Treatment Interventions: Education;Self Care / Home Management;Strengthening;Functional Mobility Training;Neuromuscular Re-education;Pain Management Plan of Care developed with: Patient;Caregiver TREATMENT INTERVENTIONS: Therapy Diagnosis: Reduced mobility-other;Decreased activities of daily living (ADL);Muscle Weakness (generalized);Unsteadiness on feet Interventions Provided: Therapeutic Exercise (92234);Therapeutic Activity (68300) Therapeutic Exercise (73684) Treatment Minutes: 30 2 units Skilled Intervention(s): Instruction in therapeutic exercise including 2 sets of 10 reps bilateral shoulder elevation with 3# dowel suraj; 2 sets of 15 reps bilateral bicep curls with 3# weights; 3 sets of 10 reps tricep pulls with blue theraband; UBE in standing with 2.25 minute tolerance and much complaints of pain in knees. Therapeutic Activity (87653) Treatment Minutes: 15 1 unit Skilled Intervention(s): Instructed patient in supine to and from sit pushing with upper extremities to sit up with flat bed and no rail to move supine to sit; pt required minimal assistance to lift legs into bed. Instruction in sit to and from stand technique with proper hand placement and body positioning at edge of bed/chair Education with pt in proper technique to complete toilet transfers with frame over toilet; proper mgt of walker in ambulation to and from therapy department. Discussed tub equipment that may be needed upon discharge. Total Timed Code Treatment Minutes: 45 Total Treatment Time (minutes): 48 SUBJECTIVE: Current Hospital Course: Chart reviewed and no significant medical updates relevant to therapy were noted Reason for Occupational Therapy Consult: OT eval secondary to bilateral knee replacement surgery Relevant Past Medical History: left meniscus repair, degenerative disc disease in back, ankylosing spondylitis, sciatica on left side Patient Report: Pt states she is in 10/10 pain throughout session. Home Environment Patient Lives With: Spouse Assistance Available: 24 Hour Entry To Home: Stairs;Without Rail Number Of Stairs Into Home: 1 (+1) Tub/Shower Type: tub/shower combo Laundry: main floor laundry Equipment Owned: Commode-Raised;Standard Walker;Wheeled Walker;Rollator;Shower Chair;Front Facer;Grab Bars-Shower Prior Functional Level: Within Functional Limits OBJECTIVE: Gross Motor Function Hand Dominance: Right Range of Motion: WFL Strength: WFL (grossly 4/5 bilaterally) Current Activities of Daily Living Assist Level Feeding Set Up Grooming Set Up Bathing Upper Body Set Up (in shower) Bathing Lower Body Contact Guard Assistance (for standing aspects in shower) Dressing Upper Body Set Up Dressing Lower Body Contact Guard Assistance (standing aspects; verbal cues for technique) Toileting Stand By Assistance Instrumental Activities of Daily Living Assist Level Meal/Beverage Prep Total Assistance Light Cleaning Total Assistance Laundry Total Assistance Medication Management with Strategies Functional Mobility Assist Level Rolling Contact Guard Assistance Supine to Sit Stand By Assistance (elevated head of bed and use of rail) Sit to Supine Minimal Assistance (flat bed and no rail) Scooting Stand By Assistance Sit to Stand Stand By Assistance Stand to Sit Stand By Assistance Bed to Chair Contact Guard Assistance Stand Pivot Standard Walker;Gait Belt Toilet/Commode Stand By Assistance Tub Transfer Shower Transfer Contact Guard Assistance (and verbal cues for technique) Functional Mobility Car Transfer Balance: Dynamic Standing Dynamic Standing Balance: Contact Guard Assistance (in functional transfers) Activity Tolerance: Standing Activity Standing Activity: UBE Standing Activity Tolerance (in minutes): 2.25 Please see discipline specific clinical documentation flowsheet for complete details for this therapy evaluation/treatment. SIGNATURE: RIRI Miller/Mark PATIENT NAME: Dinah Cool DATE: May 17, 2018 TIME: 1:16 PM THERAPY NT Observed: 05/17/2018 Status: COMPLETED Source: [place] 10:53 AM [facility] REPOSITORY HNO ID: [id number] Author: Sandee Cooley PT ASSIST Service: Physical Therapy Author Type: Voice Network Administrator Type: Therapy (PT/OT/Speech/Resp) Filed: 05/17/2018 11:00 AM Note Text: Attestation signed by Lucy Hernandez) JUN Pérez at 05/17/2018 4:53 PM I reviewed and agree with the documentation corresponding to this therapy visit. SIGNATURE: Lucy Pérez PT DATE: May 17, 2018 TIME: 4:53 PM Physical Therapy [facility] SERVICE DATE: 05/17/2018 SERVICE TIME: 0900 to 1000 ROOM: [place] [address] Recommended Discharge Disposition: Home PT Anticipated Discharge Needs: Family Training;Equipment;Supervision at Home PT Recommendations to Nursing: Ambulate with device;To bathroom;OOB for Meals Device: Wheeled Walker Precautions/Activity Restrictions: Total Knee Replacement (bilateral) Precaution/Activity Restriction Comments: WBAT bilateral lower extremities Isolation Type: None ASSESSMENT : Patient presents with continuous moaning and extreme focus on pain , back, knees, legs , continues to require vc for gait instruction continues to lack heel strike in bilateral feet, flexed trunk, unable to correct posture and continue with instructed tech during amb. she is able to correct for 10 steps then goes back to poor tech, completed supine ex. with encouragement to flex knee, completed curb instruction after demo and vc, able to move seat up when doing nu-step , increased distance to 100' today.. Requires skilled PT for vc for tech with ambulation and ex. POC per TKR protocol. Patient Disposition at Start of Session: Supine in Bed Patient Disposition at End of Session: OOB in Chair;Call Power in Reach Tolerated Full Session Pain Physical Therapy Problem List: Decreased Range Of Motion;Decreased Strength;Functional Mobility Impairment Patient /Caregiver Goals: Go Home Learning/Educational Needs: Discharge Plan;Equipment;Family Education/Training;Functional Activities/Mobility;Rehabilitation Techniques and Procedures;Precautions Goals for Plan of Care: Able to perform HEP with: Independent Transfer supine to/from sit with: Independent Transfer sit to/from stand with: Independent Ambulate with: Independent Distance: 150 Device: Wheeled Walker Ambulate up and down curb step with: Modified Independent Device: Cane Ambulate up and down steps with: Modified Independent Number of steps: 2 Device: Rail ROM: 0-95 B Progress Toward Goals: Progressing slower than expected Due To: pain, poor exercise tolerance Rehab Potential: Good PLAN: Treatment Frequency (times per week): 7 Treatment Duration (number): 3 Weeks Treatment Interventions: Joint Mobility;Strengthening;Functional Mobility Training Plan of Care developed with: Patient;Caregiver TREATMENT INTERVENTIONS: Therapy Diagnosis: Reduced mobility-other;Abnormalities of gait and mobility-other Interventions Provided: Therapeutic Exercise (47234);Gait Training (79465);Therapeutic Activity (09634) Therapeutic Exercise (13336) Treatment Minutes: 30 2 units Skilled Intervention(s): Instruction in therapeutic exercise vc to flex knee with heel slides and when seated try to bend knees rather that sitting in extension Therapeutic Activity (19129) Treatment Minutes: 10 1 unit Skilled Intervention(s): Instructed patient in supine to sit pushing with upper extremities to sit up Instructed patient in sit to supine using safe, effective technique Instructed patient in supine to and from sit pushing with upper extremities to sit up Instruction in sit to stand technique with proper hand placement and body positioning at edge of bed/chair Instruction in stand to sit technique with lower extremities touching chair/bed and reaching back for surface Instruction in sit to and from stand technique with proper hand placement and body positioning at edge of bed/chair Gait Training (65304) Treatment Minutes: 20 1 unit Skilled Intervention(s): Instruction in sit to stand technique with proper hand placement and body positioning at edge of bed/chair, Instruction in stand to sit technique with LE's touching chair/bed and reaching back for surface, Instruction in sequencing, gait pattern and Instruction in correction of gait deviations Total Timed Code Treatment Minutes: 60 Total Treatment Time (minutes): 60 SUBJECTIVE: Current Hospital Course: Chart reviewed and no significant medical updates relevant to therapy were noted Reason for Physical Therapy Consult : s/p B TKA presents for post op rehab Relevant Past Medical History: left meniscus repair, degenerative disc disease in back, ankylosing spondylitis, sciatica on left side Patient Report: her back hurts and her knees hurt rated pain in bilateral knees 9/10 Home Environment Patient Lives With: Spouse Assistance Available: 24 Hour Entry To Home: Stairs;Without Rail Number Of Stairs Into Home: 1 (+1) Tub/Shower Type: tub/shower combo Laundry: main floor laundry Equipment Owned: Commode-Raised;Standard Walker;Wheeled Walker;Rollator;Shower Chair;Front Facer;Grab Bars-Shower Prior Functional Level: Within Functional Limits OBJECTIVE: CURRENT FUNCTIONAL STATUS: Gross Motor Function Range of Motion: WFL Except;Left LE Measurement;Right LE Measurement Right Knee ROM: 84 Left Knee ROM: 88 Strength: WFL Except;Right LE Measurement;Left LE Measurement Right Hip Flexion Strength: 4/5 Right Hip Extension Strength: 4-/5 Right Knee Extension Strength: 4-/5 Left Hip Flexion Strength: 4/5 Left Hip Extension Strength: 4-/5 Left Knee Extension Strength: 4-/5 Functional Mobility Assist Level Additional Information Rolling Independent Supine to Sit Stand By Assistance Sit to Supine Verbal Cues Only Scooting Independent Sit to Stand Contact Guard Assistance Stand to Sit Contact Guard Assistance Bed to Chair Contact Guard Assistance Bed To Chair Transfer Type: Stand Pivot Bed To Chair Transfer Equipment: Standard Walker Toilet/Commode Contact Guard Assistance Gait Contact Guard Assistance Gait Device: Wheeled Walker Gait Distance (feet): 100'+ Stairs Curb Step Contact Guard Assistance Wheeled Walker Car Transfer Gait Deviations Right Lower Extremity: Heel strike during initial stance decreased;Push-off during terminal stance decreased;Knee flexion during stance increased Gait Deviations Left Lower Extremity: Heel strike during initial stance decreased;Push-off during terminal stance decreased;Knee flexion during stance increased General Gait Deviations: Flexed trunk posture;Wide base of support;Non-functional gait speed Please see discipline specific clinical documentation flowsheet for complete details for this therapy evaluation/treatment. SIGNATURE: Sandee Cooley PTA PATIENT NAME: Dinah Cool DATE: May 17, 2018 TIME: 10:54 AM THERAPY NT Observed: 05/16/2018 Status: COMPLETED Source: [place] 2:56 PM [facility] [place] REPOSITORY HNO ID: [id number] Author: Mary BradfordPt) JUN Agudelo Service: Physical Therapy Author Type: Physical Therapist Type: Therapy (PT/OT/Speech/Resp) Filed: 05/16/2018 3:06 PM Note Text: Physical Therapy [facility] SERVICE DATE: 05/16/2018 SERVICE TIME: 1350 to 1450 ROOM: [place] [address] Recommended Discharge Disposition: Home PT Anticipated Discharge Needs: Family Training;Equipment;Supervision at Home PT Recommendations to Nursing: Ambulate with device;To bathroom;OOB for Meals Device: Wheeled Walker Precautions/Activity Restrictions: Total Knee Replacement (bilateral) Precaution/Activity Restriction Comments: WBAT bilateral lower extremities Isolation Type: None ASSESSMENT : Patient with pain prior to tight end-feel during knee flexion. Also with significant STRs in quads. Patient Disposition at Start of Session: Supine in Bed Patient Disposition at End of Session: Supine in Bed Tolerance Limited By Pain Physical Therapy Problem List: Decreased Range Of Motion;Decreased Strength;Functional Mobility Impairment Patient /Caregiver Goals: Go Home Learning/Educational Needs: Discharge Plan;Equipment;Family Education/Training;Functional Activities/Mobility;Rehabilitation Techniques and Procedures;Precautions Goals for Plan of Care: Able to perform HEP with: Independent Transfer supine to/from sit with: Independent Transfer sit to/from stand with: Independent Ambulate with: Independent Distance: 150 Device: Wheeled Walker Ambulate up and down curb step with: Modified Independent Device: Cane Ambulate up and down steps with: Modified Independent Number of steps: 2 Device: Rail ROM: 0-95 B Progress Toward Goals: Progressing slower than expected Due To: pain, poor exercise tolerance Rehab Potential: Good PLAN: Treatment Frequency (times per week): 7 Treatment Duration (number): 3 Weeks Treatment Interventions: Joint Mobility;Strengthening;Functional Mobility Training Plan of Care developed with: Patient;Caregiver TREATMENT INTERVENTIONS: Therapy Diagnosis: Reduced mobility-other;Abnormalities of gait and mobility-other Interventions Provided: Manual Therapy (99981) Therapeutic Exercise (98424) Treatment Minutes: 30 2 units Skilled Intervention(s): Instruction in therapeutic exercise sidelying quad stretching [id number] ea, seated knee flexion stretches [id number] ea, Nustep [id number], seat 8 Therapeutic Activity (04744) Treatment Minutes: 5 0 units Skilled Intervention(s): Instructed patient in sit to supine using safe, effective technique Education with positioning of legs when sittig in chair Gait Training (68278) Treatment Minutes: 10 1 unit Skilled Intervention(s): Instruction in correction of gait deviations Manual Therapy (32471) Treatment Minutes: 15 1 unit Skilled Intervention: Manual skills to improve joint mobility, range of motion, and decrease pain. STM to bilateral quads Total Timed Code Treatment Minutes: 60 Total Treatment Time (minutes): 60 SUBJECTIVE: Current Hospital Course: Chart reviewed and no significant medical updates relevant to therapy were noted Reason for Physical Therapy Consult : s/p B TKA presents for post op rehab Relevant Past Medical History: left meniscus repair, degenerative disc disease in back, ankylosing spondylitis, sciatica on left side Patient Report: Patient c/o knees being sore all day Home Environment Patient Lives With: Spouse Assistance Available: 24 Hour Entry To Home: Stairs;Without Rail Number Of Stairs Into Home: 1 (+1) Tub/Shower Type: tub/shower combo Laundry: main floor laundry Equipment Owned: Commode-Raised;Standard Walker;Wheeled Walker;Rollator;Shower Chair;Front Facer;Grab Bars-Shower Prior Functional Level: Within Functional Limits OBJECTIVE: CURRENT FUNCTIONAL STATUS: Gross Motor Function Range of Motion: WFL Except;Left LE Measurement;Right LE Measurement Right Knee ROM: 84 Left Knee ROM: 88 Strength: WFL Except;Right LE Measurement;Left LE Measurement Right Hip Flexion Strength: 4/5 Right Hip Extension Strength: 4-/5 Right Knee Extension Strength: 4-/5 Left Hip Flexion Strength: 4/5 Left Hip Extension Strength: 4-/5 Left Knee Extension Strength: 4-/5 Functional Mobility Assist Level Additional Information Rolling Independent Supine to Sit Stand By Assistance Sit to Supine Contact Guard Assistance Scooting Independent Sit to Stand Contact Guard Assistance Stand to Sit Contact Guard Assistance Bed to Chair Contact Guard Assistance Bed To Chair Transfer Type: Stand Pivot Bed To Chair Transfer Equipment: Standard Walker Toilet/Commode Contact Guard Assistance Gait Contact Guard Assistance Gait Device: Wheeled Walker Gait Distance (feet): 50x2 Stairs Curb Step Car Transfer Gait Deviations Right Lower Extremity: Heel strike during initial stance decreased;Push-off during terminal stance decreased;Knee flexion during stance increased Gait Deviations Left Lower Extremity: Heel strike during initial stance decreased;Push-off during terminal stance decreased;Knee flexion during stance increased General Gait Deviations: Flexed trunk posture;Wide base of support;Non-functional gait speed Please see discipline specific clinical documentation flowsheet for complete details for this therapy evaluation/treatment. SIGNATURE: Mary Agudelo PT PATIENT NAME: Dinah Cool DATE: May 16, 2018 TIME: 2:56 PM THERAPY NT Observed: 05/16/2018 Status: COMPLETED Source: [place] 11:54 AM [facility] [place] REPOSIT[facility] HNO ID: [id number] Author: Mary BradfordPt) JUN Agudelo Service: Physical Therapy Author Type: Physical Therapist Type: Therapy (PT/OT/Speech/Resp) Filed: 05/16/2018 11:57 AM Note Text: Physical Therapy [facility] SERVICE DATE: 05/16/2018 SERVICE TIME: 1043 to 1128 ROOM: [place] [address] Recommended Discharge Disposition: Home PT Anticipated Discharge Needs: Family Training;Equipment;Supervision at Home PT Recommendations to Nursing: Ambulate with device;To bathroom;OOB for Meals Device: Wheeled Walker Precautions/Activity Restrictions: Total Knee Replacement (bilateral) Precaution/Activity Restriction Comments: WBAT bilateral lower extremities Isolation Type: None ASSESSMENT : Patient presents with poor exercise tolerance due to pain. ROM is slowly improving but pt overuses her quads; thus with inability to relax them to allow knees to bend. Requires skilled PT for instruction inavoiding compensations during functional mobility, STM to quads to reduce tension, progression of HEP tolerance and compliance. Patient Disposition at Start of Session: Supine in Bed Patient Disposition at End of Session: Supine in Bed Tolerance Limited By Pain Physical Therapy Problem List: Decreased Range Of Motion;Decreased Strength;Functional Mobility Impairment Patient /Caregiver Goals: Go Home Learning/Educational Needs: Discharge Plan;Equipment;Family Education/Training;Functional Activities/Mobility;Rehabilitation Techniques and Procedures;Precautions Goals for Plan of Care: Able to perform HEP with: Independent Transfer supine to/from sit with: Independent Transfer sit to/from stand with: Independent Ambulate with: Independent Distance: 150 Device: Wheeled Walker Ambulate up and down curb step with: Modified Independent Device: Cane Ambulate up and down steps with: Modified Independent Number of steps: 2 Device: Rail ROM: 0-95 B Progress Toward Goals: Progressing slower than expected Due To: pain, poor exercise tolerance Rehab Potential: Good PLAN: Treatment Frequency (times per week): 7 Treatment Duration (number): 3 Weeks Treatment Interventions: Joint Mobility;Strengthening;Functional Mobility Training Plan of Care developed with: Patient;Caregiver TREATMENT INTERVENTIONS: Therapy Diagnosis: Reduced mobility-other;Abnormalities of gait and mobility-other Interventions Provided: Therapeutic Exercise (00084);Gait Training (34142);Therapeutic Activity (05264) Therapeutic Exercise (31005) Treatment Minutes: 25 2 units Skilled Intervention(s): Instruction in therapeutic exercise per flowsheet. Verbal cues for technique, assistance for knee flexion stretch Therapeutic Activity (65608) Treatment Minutes: 5 0 units Skilled Intervention(s): Instructed patient in supine to sit pushing with upper extremities to sit up Instructed patient in sit to supine using safe, effective technique Education with keeping feet stationary during sitting to allow knees to bend Gait Training (75131) Treatment Minutes: 15 1 unit Skilled Intervention(s): Instruction in sequencing, gait pattern and Instruction in correction of gait deviations Total Timed Code Treatment Minutes: 45 Total Treatment Time (minutes): 45 SUBJECTIVE: Current Hospital Course: Chart reviewed and no significant medical updates relevant to therapy were noted Reason for Physical Therapy Consult : s/p B TKA presents for post op rehab Relevant Past Medical History: left meniscus repair, degenerative disc disease in back, ankylosing spondylitis, sciatica on left side Patient Report: I am stiff and sore today. Pt with multiple statements about pain throughout session Home Environment Patient Lives With: Spouse Assistance Available: 24 Hour Entry To Home: Stairs;Without Rail Number Of Stairs Into Home: 1 (+1) Tub/Shower Type: tub/shower combo Laundry: main floor laundry Equipment Owned: Commode-Raised;Standard Walker;Wheeled Walker;Rollator;Shower Chair;Front Facer;Grab Bars-Shower Prior Functional Level: Within Functional Limits OBJECTIVE: CURRENT FUNCTIONAL STATUS: Gross Motor Function Range of Motion: WFL Except;Left LE Measurement;Right LE Measurement Right Knee ROM: ~80 degrees flexion Left Knee ROM: ~85 degrees flexion Strength: WFL Except;Right LE Measurement;Left LE Measurement Right Hip Flexion Strength: 4/5 Right Hip Extension Strength: 4-/5 Right Knee Extension Strength: 4-/5 Left Hip Flexion Strength: 4/5 Left Hip Extension Strength: 4-/5 Left Knee Extension Strength: 4-/5 Functional Mobility Assist Level Additional Information Rolling Independent Supine to Sit Stand By Assistance Sit to Supine Contact Guard Assistance Scooting Independent Sit to Stand Contact Guard Assistance Stand to Sit Contact Guard Assistance Bed to Chair Contact Guard Assistance Bed To Chair Transfer Type: Stand Pivot Bed To Chair Transfer Equipment: Standard Walker Toilet/Commode Contact Guard Assistance Gait Contact Guard Assistance Gait Device: Wheeled Walker Gait Distance (feet): 50x2 Stairs Curb Step Car Transfer Gait Deviations Right Lower Extremity: Heel strike during initial stance decreased;Push-off during terminal stance decreased;Knee flexion during stance increased Gait Deviations Left Lower Extremity: Heel strike during initial stance decreased;Push-off during terminal stance decreased;Knee flexion during stance increased General Gait Deviations: Flexed trunk posture;Wide base of support;Non-functional gait speed Please see discipline specific clinical documentation flowsheet for complete details for this therapy evaluation/treatment. SIGNATURE: Mary Agudelo PT PATIENT NAME: Dinah Cool DATE: May 16, 2018 TIME: 11:54 AM THERAPY NT Observed: 05/16/2018 Status: COMPLETED Source: [place] 11:46 AM [facility] REPOSITORY [facility] ID: [id number] Author: Abril BradfordOtRamin Olivier OT Service: Occupational Therapy Author Type: Occupational Therapist Type: Therapy (PT/OT/Speech/Resp) Filed: 05/16/2018 11:52 AM Note Text: Occupational Therapy [facility] SERVICE DATE: 05/16/2018 SERVICE TIME: 844 to 939 ROOM: [place] [address] Recommended Discharge Disposition: Home OT Recommended Discharge Equipment: To Be Determined OT Recommendations to Nursing: To Bathroom for ADL?s /and or Toileting;OOB for meals;With assist of 1 person Equipment: Standard Walker Precautions/Activity Restrictions: Total Knee Replacement (bilateral) Precaution/Activity Restriction Comments: WBAT bilateral lower extremities Isolation Type: None ASSESSMENT: Patient presents with improving ability to complete lower body ADLs with verbal cues for proper technique. Pt's functional mobility skills also improving as well as balance in self care tasks.. Requires skilled OT for continued ADL training, functional mobility training, strengthening, balance, and caregiver instruction as needed prior to discharge.. Patient Disposition at Start of Session: Supine in Bed;Call Power in Reach Patient Disposition at End of Session: OOB in Chair;Call Power in Reach Tolerated Full Session (with complaints of pain but completed session) Pain Occupational Therapy Problem List: Pain;Safety Deficits;Impaired Self Care;Decreased Activity Tolerance;Decreased Strength;Functional Mobility Impairment Patient /Caregiver Goals: Go Home;Care For Self Learning/Educational Needs: Family Education/Training;Functional Activities/Mobility;Pain Management;Precautions;Rehabilitation Techniques and Procedures;Safety;Self Care Goals for Plan of Care: Able to perform HEP with: Independent Upper Body Bathing with: Set Up Upper Body Dressing with: Set Up Lower Body Bathing with: Stand By Assistance Lower Body Dressing with: Stand By Assistance Toilet Hygiene with: Supervision Chair Transfer with: Modified Independent Toilet Transfer with: Modified Independent Tub Transfer with: Supervision Kitchen Mobility Tasks with: Supervision Progress Toward Goals: Progressing as expected Rehab Potential: Good PLAN: Treatment Frequency (times per week): 5 Treatment Duration (number): 2 Weeks Treatment Interventions: Education;Self Care / Home Management;Strengthening;Functional Mobility Training;Neuromuscular Re-education;Pain Management Plan of Care developed with: Patient;Caregiver TREATMENT INTERVENTIONS: Therapy Diagnosis: Reduced mobility-other;Decreased activities of daily living (ADL);Muscle Weakness (generalized);Unsteadiness on feet Interventions Provided: Therapeutic Activity (26627);Self [facility] Management ([id number]) Therapeutic Activity (17528) Treatment Minutes: 15 1 unit Skilled Intervention(s): Instructed patient in supine to sit pushing with upper extremities to sit up Instruction in sit to and from stand technique with proper hand placement and body positioning at edge of bed/chair Education with pt in proper technique to complete shower transfers to shower chair; toilet transfers using commode frame over toilet; discussed homegoing needs/type and amount of assistance needed for IADLs Self [facility] Management ([id number]) Treatment Minutes: 38 3 units Skilled Intervention(s): Instructed in post-op instructions during ADLs including TKR precautions Provided instruction, cuing and facilitation for upper body dressing with pt at a set up level to varsha/doff deepthi shirt Provided instruction, cuing and facilitation for lower body dressing with use of dressing stick to doff socks; pt able to varsha socks/underwear/shorts at a contact guard assist level without use of adaptive equipment Provided instruction, cuing and facilitation for bathing in shower today with instruction in use of long sponge for lower extremities, in proper safety awareness in standing aspects of showering with use of grab bars for support/balance Education in proper safety awareness in toileting activities Total Timed Code Treatment Minutes: 53 Total Treatment Time (minutes): 55 SUBJECTIVE: Current Hospital Course: Chart reviewed and no significant medical updates relevant to therapy were noted Reason for Occupational Therapy Consult: OT eval secondary to bilateral knee replacement surgery Relevant Past Medical History: left meniscus repair, degenerative disc disease in back, ankylosing spondylitis, sciatica on left side Patient Report: Pt states her back is always painful and that she is not sleeping well. Home Environment Patient Lives With: Spouse Assistance Available: 24 Hour Entry To Home: Stairs;Without Rail Number Of Stairs Into Home: 1 (+1) Tub/Shower Type: tub/shower combo Laundry: main floor laundry Equipment Owned: Commode-Raised;Standard Walker;Wheeled Walker;Rollator;Shower Chair;Front Facer;Grab Bars-Shower Prior Functional Level: Within Functional Limits OBJECTIVE: Gross Motor Function Hand Dominance: Right Range of Motion: WFL Strength: WFL (grossly 4/5 bilaterally) Current Activities of Daily Living Assist Level Feeding Set Up Grooming Set Up Bathing Upper Body Set Up (in shower) Bathing Lower Body Contact Guard Assistance (for standing aspects in shower) Dressing Upper Body Set Up Dressing Lower Body Contact Guard Assistance (standing aspects; verbal cues for technique) Toileting Contact Guard Assistance Instrumental Activities of Daily Living Assist Level Meal/Beverage Prep Total Assistance Light Cleaning Total Assistance Laundry Total Assistance Medication Management with Strategies Functional Mobility Assist Level Rolling Contact Guard Assistance Supine to Sit Stand By Assistance (elevated head of bed and use of rail) Sit to Supine Minimal Assistance Scooting Stand By Assistance Sit to Stand Contact Guard Assistance Stand to Sit Contact Guard Assistance Bed to Chair Contact Guard Assistance Stand Pivot Standard Walker;Gait Belt Toilet/Commode Contact Guard Assistance Tub Transfer Shower Transfer Contact Guard Assistance (and verbal cues for technique) Functional Mobility Car Transfer Balance: Dynamic Standing Dynamic Standing Balance: Contact Guard Assistance (in functional transfers) Please see discipline specific clinical documentation flowsheet for complete details for this therapy evaluation/treatment. SIGNATURE: RIRI Miller/L PATIENT NAME: Dinah Cool DATE: May 16, 2018 TIME: 11:46 AM THERAPY NT Observed: 05/15/2018 Status: COMPLETED Source: [place] 2:05 PM [facility] REPOSITORY O ID: [id number] Author: Sandee Cooley PT ASSIST Service: Physical Therapy Author Type: Voice Network Administrator Type: Therapy (PT/OT/Speech/Resp) Filed: 05/15/2018 2:11 PM Note Text: Attestation signed by Lucy BradfordPt) JUN Pérez at 05/15/2018 2:14 PM I reviewed and agree with the documentation corresponding to this therapy visit. SIGNATURE: Lucy Pérez PT DATE: May 15, 2018 TIME: 2:14 PM Physical Therapy [facility] Facility Treatment SERVICE DATE: 05/15/2018 SERVICE TIME: 1300 to 1400 ROOM: [place] [address] Recommended Discharge Disposition: Home PT Anticipated Discharge Needs: Family Training;Equipment;Supervision at Home PT Recommendations to Nursing: Ambulate with device;To bathroom;OOB for Meals Device: Wheeled Walker Precautions/Activity Restrictions: Total Knee Replacement (bilateral) Precaution/Activity Restriction Comments: WBAT bilateral lower extremities ASSESSMENT : Patient presents with slurring some speech, unable to follow 1 command this PM, patient focused on pain in the back legs and all over, amb. vc for gait deviations unable to correct, after each activity patient moans, continually stating how bad she is hurting, completed ex. with multiple assists and vc , demonstrated difficulty w/supine transfer which this AM she was able to complete and 1X this PM treat she was able to complete transfer the 2nd time she demonstrated lack of knowledge .. Requires skilled PT for vc for ex. tech and assist required with transfer supine to sit, sit to supine. Patient Disposition at Start of Session: Supine in Bed Patient Disposition at End of Session: (on commode call light within reach) Tolerance Limited By Fatigue;Pain (slurring words, unable to demo back ex.) Physical Therapy Problem List: Decreased Range Of Motion;Decreased Strength;Functional Mobility Impairment Patient /Caregiver Goals: Go Home Learning/Educational Needs: Discharge Plan;Equipment;Family Education/Training;Functional Activities/Mobility;Rehabilitation Techniques and Procedures;Precautions Goals for Plan of Care: Able to perform HEP with: Independent Transfer supine to/from sit with: Independent Transfer sit to/from stand with: Independent Ambulate with: Independent Distance: 150 Device: Wheeled Walker Ambulate up and down curb step with: Modified Independent Device: Cane Ambulate up and down steps with: Modified Independent Number of steps: 2 Device: Rail ROM: 0-95 B Progress Toward Goals: Progressing as expected Rehab Potential: Good PLAN: Treatment Frequency (times per week): 7 Treatment Duration (number): 3 Weeks Treatment Interventions: Joint Mobility;Strengthening;Functional Mobility Training Plan of Care developed with: Patient;Caregiver TREATMENT INTERVENTIONS: Therapy Diagnosis: Reduced mobility-other;Abnormalities of gait and mobility-other Interventions Provided: Therapeutic Exercise (65528);Gait Training (90838);Therapeutic Activity (63196) Therapeutic Exercise (82574) Treatment Minutes: 30 2 units Skilled Intervention(s): Instruction in therapeutic exercise vc for tech, reps and TKR protocol Therapeutic Activity (63474) Treatment Minutes: 10 1 unit Skilled Intervention(s): Instructed patient in supine to sit pushing with upper extremities to sit up Instructed patient in sit to supine using safe, effective technique Instructed patient in supine to and from sit pushing with upper extremities to sit up Instruction in sit to stand technique with proper hand placement and body positioning at edge of bed/chair Instruction in stand to sit technique with lower extremities touching chair/bed and reaching back for surface Instruction in sit to and from stand technique with proper hand placement and body positioning at edge of bed/chair Gait Training (14009) Treatment Minutes: 20 1 unit Skilled Intervention(s): Instruction in sit to stand technique with proper hand placement and body positioning at edge of bed/chair, Instruction in stand to sit technique with LE's touching chair/bed and reaching back for surface, Instruction in sequencing, gait pattern and Instruction in correction of gait deviations Total Timed Code Treatment Minutes: 60 Total Treatment Time (minutes): 60 SUBJECTIVE: Current Hospital Course: Chart reviewed and no significant medical updates relevant to therapy were noted Reason for Physical Therapy Consult : s/p B TKA presents for post op rehab Relevant Past Medical History: left meniscus repair, degenerative disc disease in back, ankylosing spondylitis, sciatica on left side Patient Report:she is painful continues to state she is painful and moans throughout treatment Home Environment Patient Lives With: Spouse Assistance Available: 24 Hour Entry To Home: Stairs;Without Rail Number Of Stairs Into Home: 1 (+1) Tub/Shower Type: tub/shower combo Laundry: main floor laundry Equipment Owned: Commode-Raised;Standard Walker;Wheeled Walker;Rollator;Shower Chair;Front Facer;Grab Bars-Shower Prior Functional Level: Within Functional Limits OBJECTIVE: spoke to nurseRaul regarding pain meds and how patient was reacting during treatment) CURRENT FUNCTIONAL STATUS: Gross Motor Function Range of Motion: WFL Except;Left LE Measurement;Right LE Measurement Right Knee ROM: 5-60 Left Knee ROM: 5-70 Strength: WFL Except;Right LE Measurement;Left LE Measurement Right Hip Flexion Strength: 4/5 Right Hip Extension Strength: 4-/5 Right Knee Extension Strength: 4-/5 Left Hip Flexion Strength: 4/5 Left Hip Extension Strength: 4-/5 Left Knee Extension Strength: 4-/5 Functional Mobility Assist Level Additional Information Rolling Independent Supine to Sit Stand By Assistance Sit to Supine (vc for tech) Scooting Independent Sit to Stand Contact Guard Assistance Stand to Sit Contact Guard Assistance Bed to Chair Contact Guard Assistance Bed To Chair Transfer Type: Stand Pivot Bed To Chair Transfer Equipment: Standard Walker Toilet/Commode Contact Guard Assistance Gait Contact Guard Assistance Gait Device: Wheeled Walker Gait Distance (feet): 50' x 2, 20' Stairs Curb Step Car Transfer Gait Deviations Right Lower Extremity: Knee flexion during stance increased;Step length decreased Gait Deviations Left Lower Extremity: Knee flexion during stance increased;Step length decreased General Gait Deviations: Flexed trunk posture (decreased knee flexion in swing phase B) Please see discipline specific clinical documentation flowsheet for complete details for this therapy evaluation/treatment. 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 No Advance Directive: Has none and is not interested in completing. Health Literacy: 1. How often do you need to have someone help you when you read instructions, pamphlets, or other written material from your doctor or pharmacy? Never - 1 2. How confident are you filling out medical forms by yourself? Extremely - 1 If Patient scores > 3 on either question, the following interventions were put into place: Patient did not score > 3 FUNCTIONAL AND COGNITIVE/BEHAVIORAL PRIOR TO ADMISSION: Baseline Mental Status: Alert AND Oriented, Person, Place , Time and Situation Functional Status: Independent Does Patient Currently Receive Any Community Services or Home Care? None Equipment Prior to Admission: Tub bench/chair Walker (standard, front wheeled and rollator) High Toilet Front Facer Grab Bar in shower Has the Patient Been in a [facility] Facility in the Past 30 days? No SOCIAL: Living Arrangement: Home Lives With: Spouse Financial Resources: Retired Primary Contact: Extended Emergency Contact Information Primary Emergency Contact: Rolando Cool Address: [address] [place] [address] Relation: Spouse Supportive: Unable to assess at this time Other Important Patient Contacts: SonRaymond: [phone] Caregiver Assessment: Caregiver is ready, willing and able to meet the patient's needs as recommended by the inter-professional team? To be determined Patient's transition needs and plan for meeting these needs: PT/OT/SN Does the patient have an acute stroke diagnosis, or has the patient had a stroke during this admission? No Medication Adherence: I am convinced of the importance of my prescription medication: Agree completely - 0 I worry that my prescription medication will do more harm than good to me Disagree completely - 0 I feel financially burdened by my [id number] expenses for my prescription medication: Disagree completely - 0 Patient is categorized as low risk < 2 Are you interested in bedside delivery of your medications? n/a Food Concerns: In the Last Month, Have You had Trouble Getting Food? No trouble getting food During the Last Month, Have You Worried Whether Your Food Would Run Out Before You Had Enough Money to Buy More? No Is the Patient Psychosocially Complex? No ASSESSMENT AND PLAN: Medical Needs: 2 or more chronic diseases and Fall risk or frequent falls Psychosocial Needs: None FREEDOM OF CHOICE EXPLAINED: Yes and patient expressed umderstanding POTENTIAL TRANSITION PLANS Home [facility] OT/PT Patient to check with acquaintance regarding [facility] agency recommendation. Patient shared that they have a 30 lb dog that has bitten both her and her . Patient says it's a walters terrier and is 15 years old. Says it started getting grumpy about three years ago. Will need to be locked up when HH staff go out. Patient does not need [facility]aptist called. Is agreeable to a visit from the director emergency department. SIGNATURE: ALEN Mohr PATIENT NAME: Dinah Cool DATE: May 15, 2018 TIME: 11:48 AM PAGER/CONTACT #: [phone] NUTRITION Observed: 05/15/2018 Status: COMPLETED Source: [place] 11:34 AM [facility] REPOSITORY [facility] ID: [id number] Author: Daniel Knox) CAS Blanca Service: Nutrition Therapy Author Type: Registered Dietitian Type: Nutrition Filed: 05/15/2018 11:41 AM Note Text: NUTRITION THERAPY INITIAL ASSESSMENT SERVICE DATE: 05/15/2018 SERVICE TIME: 1135 RECOMMENDED MALNUTRITION DIAGNOSIS: NO MALNUTRITION IDENTIFIED NUTRITION CARE PLAN: Intervention Provide diet as ordered adapted to preferences and tolerances. Encourage intake, no additions necessary at this time. Nutrition education provided for therapeutic diet. Pt given dietitian?s contact information. Reviewed current labs, progress and treatment notes. Monitor and Evaluation Goal: Meet >75% of estimated needs Follow up at weekly rounds and when consulted. Discharge Nutrition Recommendations: Diet: Carbohydrate Controlled Per HPI: Status post total bilateral knee replacement GERD (gastroesophageal reflux disease) Post-menopause on HRT (hormone replacement therapy) Vitamin D deficiency Bilateral hearing loss Hyperlipidemia Multiple thyroid nodules Elevated blood pressure reading without diagnosis of hypertension Current Diet Order DIET CARBOHYDRATE CONTROLLED Order Specific Question: Carbohydrate Control Answer: 3-5 CARBS/MEAL Nutritional Intake Prior to Admission: >75% estimated energy needs over the past 6 month(s) GI symptoms: none ANTHROPOMETRICS Height: 160 cm (5' 3) Admission Weight: 71.7 kg (158 lb) Current Weight: 71.7 kg (158 lb) Body mass index is 27.99 kg/m?. normal Weight has not changed significantly Last Wt 05/12/18 : 71.7 kg (158 lb) 01/09/18 : 71.7 kg (158 lb) 12/28/17 : 71.7 kg (158 lb) 11/02/17 : 69.9 kg (154 lb) 07/15/17 : 69.4 kg (153 lb) 07/14/17 : 69 kg (152 lb 3.2 oz) 06/14/16 : 69.6 kg (153 lb 6.4 oz) 06/16/15 : 67.2 kg (148 lb 3.2 oz) 06/24/14 : 70.4 kg (155 lb 2 oz) 09/12/13 : 68.5 kg (151 lb) 08/15/13 : 71 kg (156 lb 8.4 oz) 08/09/13 : 71 kg (156 lb 8.4 oz) 06/20/13 : 68.5 kg (151 lb) 06/07/13 : 71.2 kg (157 lb) 05/30/13 : 69.9 kg (154 lb) 12/05/12 : 68.4 kg (150 lb 12.8 oz) Resting Metabolic Rate: 1195 Estimated kilocalorie needs: 1800 kilocalories determined by 25 kcal/kg Estimated protein needs: 90 grams determined by 1.0-1.5 g/kg Current weight Estimated fluid needs: 1800 milliliters based on 1 mL per kcal Temperature Max in 24 hours: Temp (24hrs), Av.8 ?C (98.3 ?F), Min:36.8 ?C (98.2 ?F), Max:36.9 ?C (98.5 ?F) BP 128/71 Pulse 113 Temp 36.9 ?C (98.5 ?F) (Oral) Resp 18 Ht 160 cm (5' 3) Wt 71.7 kg (158 lb) SpO2 98% BMI 27.99 kg/m? Potential Signs of Inflammation: no identifiable sources ALLERGIES Allergen Reactions - Codeine Unknown - Contrast Dye [Iodin* Vomiting Severe Nausea - Tetracycline Hives Current Facility-Administered Medications: oxyCODONE IR 10 mg tab(s) (ROXICODONE) 10 mg ORAL q 3 H PRN oxyCODONE IR 15 mg tab(s) (ROXICODONE) 15 mg ORAL q 3 H PRN estradiol - REMOVE PATCH OTHER q SUN And estrogen - VERIFY PATCH OTHER q 8 H aspirin, enteric coated 81 mg tab(s) 81 mg ORAL BID estradiol 0.05 mg/24 hr 1 Patch (CLIMARA) 1 Patch TRANSDERMAL q 1 WEEK oxymetazoline 0.05 % 2 [place] (GENASAL) 2 [place] EACH NOSTRIL BID PRN cycloSPORINE 0.05 % 1 Drop (RESTASIS) 1 Drop BOTH EYES q 1 H PRN guaiFENesin 1,200 mg ER tab(s) (MUCINEX) 1,200 mg ORAL q [address] 40 mg tab(s) (PROTONIX) 40 mg ORAL DAILY (6 AM) acetaminophen 650 mg tab(s) (TYLENOL) 650 mg ORAL q 4 H PRN oxyCODONE IR 10 mg tab(s) (ROXICODONE) 10 mg ORAL q 12 H PRN polyethylene glycol 3350 17 g packet (MIRALAX, GLYCOLAX) 17 g ORAL DAILY PRN bisacodyl 10 mg suppository (DULCOLAX) 10 mg RECTAL DAILY PRN sodium phosphate-sodium bisphosphate 133 mL enema (FLEET) 133 mL RECTAL DAILY PRN cyclobenzaprine 10 mg tab(s) (FLEXERIL) 10 mg ORAL TID PRN MNT Billing Type: Initial Assess/15 min 2 units SIGNATURE: Daniel Blanca RD PATIENT NAME: Dinah Cool DATE: May 15, 2018 TIME: 11:34 AM PAGER: THERAPY NT Observed: 05/15/2018 Status: COMPLETED Source: [place] 11:00 AM [facility] REPOSITORY HNO ID: [id number] Author: Sandee Cooley PT ASSIST Service: Physical Therapy Author Type: Voice Network Administrator Type: Therapy (PT/OT/Speech/Resp) Filed: 05/15/2018 11:07 AM Note Text: Attestation signed by Lucy Pérez PT at 05/15/2018 2:10 PM I reviewed and agree with the documentation corresponding to this therapy visit. SIGNATURE: Lucy Pérez PT DATE: May 15, 2018 TIME: 2:10 PM Physical Therapy [facility] Treatment SERVICE DATE: 05/15/2018 SERVICE TIME: 1020 to 1105 ROOM: [place] [address] Recommended Discharge Disposition: Home PT Anticipated Discharge Needs: Family Training;Equipment;Supervision at Home PT Recommendations to Nursing: Ambulate with device;To bathroom;OOB for Meals Device: Wheeled Walker Precautions/Activity Restrictions: Total Knee Replacement (bilateral) Precaution/Activity Restriction Comments: WBAT bilateral lower extremities ASSESSMENT : Patient presents with patient was teary eyed, moaning nurse present combing pt. hair , nurse stated when patient removed tens unit off her back she turned the control up ,increasing the stim and jerked her R LE which was very painful., patient transfered out of recliner CG assist amb. required gait instruction, posture cues and attempt to correct gait deviations, patient moaned thru therapy session, . Requires skilled PT for vc for gait instruction, posture , transfer tech .. Patient Disposition at Start of Session: OOB in Chair Patient Disposition at End of Session: OOB in Chair;Call Power in Reach Tolerated Full Session Physical Therapy Problem List: Decreased Range Of Motion;Decreased Strength;Functional Mobility Impairment Patient /Caregiver Goals: Go Home Learning/Educational Needs: Discharge Plan;Equipment;Family Education/Training;Functional Activities/Mobility;Rehabilitation Techniques and Procedures;Precautions Goals for Plan of Care: Able to perform HEP with: Independent Transfer supine to/from sit with: Independent Transfer sit to/from stand with: Independent Ambulate with: Independent Distance: 150 Device: Wheeled Walker Ambulate up and down curb step with: Modified Independent Device: Cane Ambulate up and down steps with: Modified Independent Number of steps: 2 Device: Rail ROM: 0-95 B Progress Toward Goals: Progressing as expected Rehab Potential: Good PLAN: Treatment Frequency (times per week): 7 Treatment Duration (number): 3 Weeks Treatment Interventions: Joint Mobility;Strengthening;Functional Mobility Training Plan of Care developed with: Patient;Caregiver TREATMENT INTERVENTIONS: Therapy Diagnosis: Reduced mobility-other;Abnormalities of gait and mobility-other Interventions Provided: Therapeutic Exercise (80396);Gait Training (97101);Therapeutic Activity (36148) Therapeutic Exercise (94223) Treatment Minutes: 15 1 unit Skilled Intervention(s): Instruction in therapeutic exercise vc on purpose of nu-step, and instruction on tech Therapeutic Activity (74723) Treatment Minutes: 15 1 unit cues for hand placement during transfers, safety issued reviewed Skilled Intervention(s): Instruction in sit to stand technique with proper hand placement and body positioning at edge of bed/chair Instruction in stand to sit technique with lower extremities touching chair/bed and reaching back for surface Instruction in sit to and from stand technique with proper hand placement and body positioning at edge of bed/chair Gait Training (98487) Treatment Minutes: 15 1 unit Skilled Intervention(s): Instruction in sit to stand technique with proper hand placement and body positioning at edge of bed/chair, Instruction in stand to sit technique with LE's touching chair/bed and reaching back for surface, Instruction in sequencing, gait pattern and Instruction in correction of gait deviations Total Timed Code Treatment Minutes: 45 Total Treatment Time (minutes): 45 SUBJECTIVE: Current Hospital Course: Chart reviewed and no significant medical updates relevant to therapy were noted Reason for Physical Therapy Consult : s/p B TKA presents for post op rehab Relevant Past Medical History: left meniscus repair, degenerative disc disease in back, ankylosing spondylitis, sciatica on left side Patient Report: her pain level is 9-10/10 this AM that really hurt when the stim ramped up, when returning to recliner patient said her R LE popped. Patient states she would never have TKR done again. Patient tearful during treatment . Home Environment Patient Lives With: Spouse Assistance Available: 24 Hour Entry To Home: Stairs;Without Rail Number Of Stairs Into Home: 1 (+1) Tub/Shower Type: tub/shower combo Laundry: main floor laundry Equipment Owned: Commode-Raised;Standard Walker;Wheeled Walker;Rollator;Shower Chair;Front Facer;Grab Bars-Shower Prior Functional Level: Within Functional Limits OBJECTIVE: CURRENT FUNCTIONAL STATUS: Gross Motor Function Range of Motion: WFL Except;Left LE Measurement;Right LE Measurement Right Knee ROM: 5-70 Left Knee ROM: 5-80 Strength: WFL Except;Right LE Measurement;Left LE Measurement Right Hip Flexion Strength: 4/5 Right Hip Extension Strength: 4-/5 Right Knee Extension Strength: 4-/5 Left Hip Flexion Strength: 4/5 Left Hip Extension Strength: 4-/5 Left Knee Extension Strength: 4-/5 Functional Mobility Assist Level Additional Information Rolling Independent Supine to Sit Independent Sit to Supine Minimal Assistance Scooting Independent Sit to Stand Contact Guard Assistance Stand to Sit Contact Guard Assistance Bed to Chair Contact Guard Assistance Bed To Chair Transfer Type: Stand Pivot Bed To Chair Transfer Equipment: Standard Walker Toilet/Commode Contact Guard Assistance Gait Contact Guard Assistance Gait Device: Wheeled Walker Gait Distance (feet): 30'x 2 , 40' Stairs Curb Step Car Transfer Gait Deviations Right Lower Extremity: Knee flexion during stance increased;Step length decreased Gait Deviations Left Lower Extremity: Knee flexion during stance increased;Step length decreased General Gait Deviations: Flexed trunk posture (decreased knee flexion in swing phase B) Please see discipline specific clinical documentation flowsheet for complete details for this therapy evaluation/treatment. SIGNATURE: Sandee Cooley PTA PATIENT NAME: Dinah Cool DATE: May 15, 2018 TIME: 11:00 AM THERAPY NT Observed: 05/15/2018 Status: COMPLETED Source: [place] 9:58 AM [facility] REPOSITORY HNO ID: [id number] Author: Jemma BradfordOtRamin Pryor OT Service: Occupational Therapy Author Type: Occupational Therapist Type: Therapy (PT/OT/Speech/Resp) Filed: 05/15/2018 10:11 AM Note Text: Occupational Therapy [facility] SERVICE DATE: 05/15/2018 SERVICE TIME: 854 ROOM: [place] [address] Recommended Discharge Disposition: Home OT Recommended Discharge Equipment: To Be Determined OT Recommendations to Nursing: To Bathroom for ADL?s /and or Toileting;OOB for meals;With assist of 1 person Equipment: Standard Walker Precautions/Activity Restrictions: Total Knee Replacement (bilateral) Precaution/Activity Restriction Comments: WBAT bilateral lower extremities ASSESSMENT: Patient presents with report of increased pain at a9/10 level and with almost constant pain behavior throughout session. educated pt on breathing techniques to help with pain and pt did respond to some distaction and emcouragement. She participated in donning and doffing of socks with adaptive euipment and education on safety and work simplification, with handouts issued.. Requires skilled OT for continued training on ADL's, IADL's, transfers, and walker safety.. Patient Disposition at Start of Session: OOB in Chair;Call Power in Reach Patient Disposition at End of Session: OOB in Chair;Call Power in Reach Tolerance Limited By Pain Occupational Therapy Problem List: Pain;Safety Deficits;Impaired Self Care;Decreased Activity Tolerance;Decreased Strength;Functional Mobility Impairment Patient /Caregiver Goals: Go Home;Care For Self Learning/Educational Needs: Family Education/Training;Functional Activities/Mobility;Pain Management;Precautions;Rehabilitation Techniques and Procedures;Safety;Self Care Goals for Plan of Care: Able to perform HEP with: Independent Upper Body Bathing with: Set Up Upper Body Dressing with: Set Up Lower Body Bathing with: Stand By Assistance Lower Body Dressing with: Stand By Assistance Toilet Hygiene with: Supervision Chair Transfer with: Modified Independent Toilet Transfer with: Modified Independent Tub Transfer with: Supervision Kitchen Mobility Tasks with: Supervision Progress Toward Goals: Progressing as expected Rehab Potential: Good PLAN: Treatment Frequency (times per week): 5 Treatment Duration (number): 2 Weeks Treatment Interventions: Education;Self Care / Home Management;Strengthening;Functional Mobility Training;Neuromuscular Re-education;Pain Management Plan of Care developed with: Patient;Caregiver TREATMENT INTERVENTIONS: Therapy Diagnosis: Reduced mobility-other;Decreased activities of daily living (ADL);Abnormalities of gait and mobility-other;Difficulty walking-musculoskeletal Interventions Provided: Self [facility] ([id number]) Self [facility] ([id number]) Treatment Minutes: 55 4 units Skilled Intervention(s): Instructed in post-op instructions during ADLs for TKR. Instructed in energy conservation with handout issued. Provided instruction, cuing and facilitation for lower body dressing for donning and doffing socks using dressing stick, sock aid, and university librarian. Pt went from min assist with this task to verbal cues only by end of session. Education in importance of being seated when she first greets her pet at home. Pt reports that her 15 year old dog has bitten them numerous times and that he will not allow her to go around him when he is lying in the doorway. discussed concern for pt's safety and optimal recovery with her and shared information with social service. Total Timed Code Treatment Minutes: 55 Total Treatment Time (minutes): 55 SUBJECTIVE: Current Hospital Course: Chart reviewed and no significant medical updates relevant to therapy were noted Reason for Occupational Therapy Consult: OT eval secondary to bilateral knee replacement surgery Relevant Past Medical History: left meniscus repair, degenerative disc disease in back, ankylosing spondylitis, sciatica on left side Patient Report: I have been bitten by my dog when I just accidentally bump into him. Home Environment Patient Lives With: Spouse Assistance Available: 24 Hour Entry To Home: Stairs;Without Rail Number Of Stairs Into Home: 1 (+1) Tub/Shower Type: tub/shower combo Laundry: main floor laundry Equipment Owned: Commode-Raised;Standard Walker;Wheeled Walker;Rollator;Shower Chair;Front Facer;Grab Bars-Shower Prior Functional Level: Within Functional Limits OBJECTIVE: Gross Motor Function Hand Dominance: Right Range of Motion: WFL Strength: WFL (grossly 4/5 bilaterally) Current Activities of Daily Living Assist Level Feeding Set Up Grooming Set Up Bathing Upper Body Minimal Assistance Bathing Lower Body Moderate Assistance Dressing Upper Body Minimal Assistance Dressing Lower Body Minimal Assistance (began instruction for donning doffing socks with equipment) Toileting Moderate Assistance Instrumental Activities of Daily Living Assist Level Meal/Beverage Prep Total Assistance Light Cleaning Total Assistance Laundry Total Assistance Medication Management with Strategies Functional Mobility Assist Level Rolling Contact Guard Assistance Supine to Sit Minimal Assistance Sit to Supine Minimal Assistance Scooting Minimal Assistance Sit to Stand Contact Guard Assistance Stand to Sit Contact Guard Assistance Bed to Chair Contact Guard Assistance Stand Pivot Standard Walker;Gait Belt Toilet/Commode Contact Guard Assistance Tub Transfer Shower Transfer Functional Mobility Car Transfer Please see discipline specific clinical documentation flowsheet for complete details for this therapy evaluation/treatment. SIGNATURE: Jemma Pryor OTR/L PATIENT NAME: Dinah Cool DATE: May 15, 2018 TIME: 9:58 AM NURSING PROG Observed: 05/15/2018 Status: COMPLETED Source: [place] 8:49 AM [facility] REPOSITORY HNO ID: [id number] Author: Rani (Rn) FARZDA Quintero Service: Nursing Author Type: Registered Nurse Type: Nursing Progress Note Filed: 05/15/2018 9:24 AM Note Text: Nursing Progress Note Patient Name: Dinah Cool Patient Location: [place] [address] [address] Daily Note: pt sitting up in bed with eyes closed in front of breakfast tray. Upon entering the room pt opened her eyes, started moaning, shifting around in bed and c/o 9/10 back and bilat knee pain. Ice machine was on bilat knees, and subsequently removed by RN because pt scheduled for therapy whithin 20min. Pain medication given as ordered for 9/10 pain (see MAR). This note was completed by: Rani Quintero RN THERAPY NT Observed: 05/14/2018 Status: COMPLETED Source: [place] 10:03 AM [facility] REPOSITORY HNO ID: [id number] Author: Sandee Cooley PT ASSIST Service: Physical Therapy Author Type: Voice Network Administrator Type: Therapy (PT/OT/Speech/Resp) Filed: 05/14/2018 10:09 AM Note Text: Attestation signed by Lucy (Pt) JUN Pérez at 05/15/2018 8:18 AM I reviewed and agree with the documentation corresponding to this therapy visit. SIGNATURE: Lucy Pérez PT DATE: May 15, 2018 TIME: 8:18 AM Physical Therapy [facility] SERVICE DATE: 05/14/2018 SERVICE TIME: 834 to 919 ROOM: [place] [address] Recommended Discharge Disposition: Home PT Anticipated Discharge Needs: Family Training;Equipment;Supervision at Home PT Recommendations to Nursing: Ambulate with device;To bathroom;OOB for Meals Device: Wheeled Walker Precautions/Activity Restrictions: Total Knee Replacement (bilateral) Precaution/Activity Restriction Comments: WBAT bilateral lower extremities ASSESSMENT : Patient presents with reporting very painful did not sleep well , completed ex. with assist for LAQ, and knee flexion, amb. greater distance during gait instruction increased heel strike and step through gait pattern progressing walker steadily transers improving less assist required. Requires skilled PT for assist with ex. on LLE, vc for TKR protocol , educated patient on TKR . Patient Disposition at Start of Session: OOB in Chair Patient Disposition at End of Session: Supine in Bed;Call Power in Reach Tolerated Full Session Physical Therapy Problem List: Decreased Range Of Motion;Decreased Strength;Functional Mobility Impairment Patient /Caregiver Goals: Go Home Learning/Educational Needs: Discharge Plan;Equipment;Family Education/Training;Functional Activities/Mobility;Rehabilitation Techniques and Procedures;Precautions Goals for Plan of Care: Able to perform HEP with: Independent Transfer supine to/from sit with: Independent Transfer sit to/from stand with: Independent Ambulate with: Independent Distance: 150 Device: Wheeled Walker Ambulate up and down curb step with: Modified Independent Device: Cane Ambulate up and down steps with: Modified Independent Number of steps: 2 Device: Rail ROM: 0-95 B Progress Toward Goals: Progressing as expected Rehab Potential: Good PLAN: Treatment Frequency (times per week): 7 Treatment Duration (number): 3 Weeks Treatment Interventions: Joint Mobility;Strengthening;Functional Mobility Training Plan of Care developed with: Patient;Caregiver TREATMENT INTERVENTIONS: Therapy Diagnosis: Reduced mobility-other;Abnormalities of gait and mobility-other Interventions Provided: Therapeutic Exercise (59600);Gait Training (13035) Therapeutic Exercise (71460) Treatment Minutes: 30 2 units Skilled Intervention(s): Instruction in therapeutic exercise vc for tech , POC per TKR protocol Gait Training (81261) Treatment Minutes: 15 1 unit Skilled Intervention(s): Instruction in sit to stand technique with proper hand placement and body positioning at edge of bed/chair, Instruction in stand to sit technique with LE's touching chair/bed and reaching back for surface, Instruction in sequencing, gait pattern and Instruction in WB precautions cues to patient not to eyeglass maker walker to hard , beginning to alternate feet when ambulating and advancing walker better. Total Timed Code Treatment Minutes: 45 Total Treatment Time (minutes): 45 SUBJECTIVE: Current Hospital Course: Chart reviewed and no significant medical updates relevant to therapy were noted Reason for Physical Therapy Consult : s/p B TKA presents for post op rehab Relevant Past Medical History: left meniscus repair, degenerative disc disease in back, ankylosing spondylitis, sciatica on left side Patient Report: she is in pain and her legs are stiff. Rated pain 8-9/10 and back pain is 8/10 but not bad right now. Home Environment Patient Lives With: Spouse Assistance Available: 24 Hour Entry To Home: Stairs;Without Rail Number Of Stairs Into Home: 1 (+1) Tub/Shower Type: tub/shower combo Laundry: main floor laundry Equipment Owned: Commode-Raised;Standard Walker;Wheeled Walker;Rollator;Shower Chair;Front Facer;Grab Bars-Shower Prior Functional Level: Within Functional Limits OBJECTIVE: CURRENT FUNCTIONAL STATUS: Gross Motor Function Range of Motion: WFL Except;Left LE Measurement;Right LE Measurement Right Knee ROM: 5-70 Left Knee ROM: 5-80 Strength: WFL Except;Right LE Measurement;Left LE Measurement Right Hip Flexion Strength: 4/5 Right Hip Extension Strength: 4-/5 Right Knee Extension Strength: 4-/5 Left Hip Flexion Strength: 4/5 Left Hip Extension Strength: 4-/5 Left Knee Extension Strength: 4-/5 Functional Mobility Assist Level Additional Information Rolling Independent Supine to Sit Independent Sit to Supine Minimal Assistance Scooting Independent Sit to Stand Contact Guard Assistance Stand to Sit Contact Guard Assistance Bed to Chair Contact Guard Assistance Bed To Chair Transfer Type: Stand Pivot Bed To Chair Transfer Equipment: Standard Walker Toilet/Commode Contact Guard Assistance Gait Contact Guard Assistance Gait Device: Wheeled Walker Gait Distance (feet): 30' x 2 Stairs Curb Step Car Transfer Gait Deviations Right Lower Extremity: Knee flexion during stance increased;Step length decreased Gait Deviations Left Lower Extremity: Knee flexion during stance increased;Step length decreased General Gait Deviations: Flexed trunk posture (decreased knee flexion in swing phase B) Please see discipline specific clinical documentation flowsheet for complete details for this therapy evaluation/treatment. 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 Powell. She has a history of lower back pain, and has been under the care of pain management. She reports that the pain in her lower back is 8/10, and is made worse by the position in which she has to lie due to her recent surgery. She has a TENS unit with her, but it is helping minimally. She has not been able to rest well due to her pain. PAST MEDICAL HISTORY Diagnosis Date - Artificial menopause state - Atelectasis Last xray 05/2018, ongoing for years, seen by Dr Esquivel, worked around chemicals - CAD (coronary artery disease) pt denies - Carotid artery disease (HCC) 05/17, Dr Maher follows, no need for surgical intervention at this time - Chronic back pain - Fatty liver - GERD (gastroesophageal reflux disease) - Hyperlipidemia - Macular degeneration - Migraine resolved after ear peircing - Multiple thyroid nodules 12/05/2012 Thyroid ultrasound in 10/2012 showed 2 small nodules in right lobe, 6 mm cyst and 8 mm nodule. Thyroid ultrasound in 06/2013 showed 2 small nodules are seen within the right lobe, both 8 mm. Left lobe and isthmus show no nodules. Thyroid ultrasound in 06/2014 showed 9 mm nodule in right lobe (mixed cystic/solid with hypervascular solid component), and another 8 mm right lobe nodule. Left lobe shows a new hyperechoic solid nodule, 4 mm. Thyroid ultrasound in 06/2015 showed 9 mm nodule and 8 mm nodule in right upper pole. Left lobe shows a 7 mm lower pole nodule (previously 5 mm). - Retinal hemorrhage Left eye; received injections x 3 PAST SURGICAL HISTORY Procedure Laterality Date - BLADDER SURGERY HX Cysto/anterior repair/SSLF - CHOLECYSTECTOMY 1997 - COLONOSCOP W/ OR W/O BRSH SPEC 08/15/2013 Colonoscopy - EGD W/O OR W/BRUSH/WASH 08/15/2013 EGD - EXCISION TURBINATE - KNEE LEFT OP SURGERY 2011 - OOPHORECTOMY, PART/TOTAL UNILAT/BILAT b/l - PAST SURGICAL HISTORY OF injections for back pain - PAST SURGICAL HISTORY OF cystoscope - PAST SURGICAL HISTORY OF correction of bilateral nasal turbinates. - PAST SURGICAL HISTORY OF esophageal dilation X2 - VAGINAL HYSTERECTOMY 1993 FAMILY HISTORY Problem Relation Age of Onset - Thyroid Mother - Lipids Mother - Hypertension Mother - Thyroid Maternal Grandmother - other (thyroid cancer) Other cousin sister Social History Substance Use Topics - Smoking status: Former Smoker Types: Cigarettes - Smokeless tobacco: Never Used Comment: Quit 13+ years ago - Alcohol use No MEDICATIONS: Reviewed Prescriptions Prior to Admission: oxybutynin ER (DITROPAN XL) 10 mg 24 hr tablet Take 1 tablet by mouth once daily. Disp: 30 tablet Rfl: 11 fexofenadine HCl (MUCINEX ALLERGY ORAL) Take 1 tablet by mouth as needed. Disp: Rfl: Taking ciprofloxacin HCl (CIPRO) 250 mg tablet Take 500 mg by mouth twice daily. TOOK FOR 3 DAYS 12/14- 12/17 FOR UTI SYMTOMS Disp: Rfl: Not Taking estradiol - REMOVE PATCH Disp: Rfl: Taking oxymetazoline HCl (AFRIN NASAL) Use in the nose. Disp: Rfl: Taking ibuprofen (MOTRIN) 600 mg tablet Take 1 tablet by mouth every 8 hours as needed for Pain. Disp: 30 tablet Rfl: 0 Taking aspirin, enteric coated (ASPIRIN, ENTERIC COATED) 81 mg EC tablet Take 81 mg by mouth once daily. Disp: Rfl: Taking cholecalciferol, vitamin D3, 50,000 unit tab Take by mouth once each week. Disp: Rfl: Taking ALBUTEROL SULFATE INHALATION Inhale as instructed. Disp: Rfl: Not Taking PREDNISONE ORAL Take 1 tablet by mouth as directed. Taper dose Disp: Rfl: Not Taking simvastatin (ZOCOR) 40 mg tablet Take 40 mg by mouth daily at bedtime. Disp: Rfl: Taking Omeprazole (PRILOSEC) 40 mg capsule Take 40 mg by mouth once daily. Disp: Rfl: Taking HYDROcodone-Acetaminophen 7.5-325 mg per tablet Take 1 tablet by mouth every 8 hours as needed. Disp: Rfl: Taking estradiol 0.05 mg/24 hr Apply 1 Patch as directed once each week. Disp: Rfl: Not Taking ALLERGIES Allergen Reactions - Codeine Unknown - Contrast Dye [Iodin* Vomiting Severe Nausea - Tetracycline Hives REVIEW OF SYSTEM: PAIN ASSESSMENT: HISTORY OF CHRONIC PAIN OR CURRENTLY BEING TREATED FOR A CHRONIC PAIN CONDITION: Yes, CONDITION: chronic lower back pain TREATMENT INCLUDES(D) CONTROLLED SUBSTANCES/SCHEDULED MEDICATIONS: norco GENERAL: No weight loss, malaise or fevers HEENT: Negative for frequent or significant headaches, No changes in hearing or vision, no nose bleeds or other nasal problems NECK: Negative for lumps, goiter, pain and significant neck swelling RESPIRATORY: Negative for cough, hemoptysis, wheezing, COPD, dyspnea or shortness of breath CARDIOVASCULAR: Negative for chest pain, leg swelling, hypertension, CHF or palpitations GI: No nausea, vomiting, or diarrhea MUSCULOSKELETAL: back pain and b/l knee pain since surgery PSYCH: Problems sleeping due to pain, denies mood disorder and recent psychosocial stressors ENDOCRINE: Negative for cold or heat intolerance, polyuria, polydipsia and goiter NEURO: No history of headaches, syncope, paralysis, seizures or tremors Objective PHYSICAL EXAM: BP 158/73 Pulse 111 Temp (Src) 98.9 (Oral) Resp 18 Ht 5' 3 (1.60m) Wt 158 lb (71.7kg) SpO2 97% BMI 28.00 kg/(m2). Physical Exam Performed: GENERAL: Alert, no distress, cooperative SKIN: Skin color, texture, turgor normal. No rashes or lesions. LUNGS: Lungs clear to auscultation, Good diaphragmatic excursion CARDIAC: Normal S1 and S2; no rubs, murmurs, or gallops ABDOMEN: Abdomen soft, non-tender, BS normal, No masses or organomegaly EXTREMITIES: knees with aquacel dressings in place b/l, nonpitting edema of ankles NEURO: Cranial nerves II-XII intact Lines, Drains, and Airways No matching active lines, drains, or airways DATA: Diagnostic tests reviewed for today's visit: No new labs Assessment/Plan Active Problems: Status post total bilateral knee replacement POA: Yes Assessment AND Plan: pt here for PT/OT, will increase oral pain medication and reevaluate Resolved Problems: * No resolved hospital problems. * Medication and Non-Pharmacologic VTE Prophylaxis/Anticoagulants Anticoagulant AND Antiplatelet Medications Start Dose Route Frequency Ordered Stop 05/12/18 2100 aspirin, enteric coated 81 mg tab(s) 81 mg ORAL 2 TIMES DAILY 05/12/18 1612 -- 05/12/18 1530 vte non-pharmacologic prophylaxis - none indicated ([place]) 05/12/18 1530 activity - mobilize patient ([place]) VTE Prophylaxis: VTE prophylaxis appropriate Plan of care discussed with: Patient and Family/Other: pt's in the room SIGNATURE: Edilia Johnston DO PATIENT NAME: Dinah Cool DATE: May 13, 2018 TIME: 11:45 PM PAGER/CONTACT #: [phone] THERAPY NT Observed: 05/13/2018 Status: COMPLETED Source: [place] 10:58 AM [facility] [place] REPOSITORY HNO ID: [id number] Author: Lucy (Pt) JUN Pérez Service: Physical Therapy Author Type: Physical Therapist Type: Therapy (PT/OT/Speech/Resp) Filed: 05/13/2018 11:44 AM Note Text: Physical Therapy [facility] SERVICE DATE: 05/13/2018 SERVICE TIME: 0950 to 1050 ROOM: [place] [address] Recommended Discharge Disposition: Home PT Anticipated Discharge Needs: Family Training;Equipment;Supervision at Home PT Recommendations to Nursing: Ambulate with device;To bathroom;OOB for Meals Device: Wheeled Walker Precautions/Activity Restrictions: Total Knee Replacement (bilateral) Precaution/Activity Restriction Comments: WBAT bilateral lower extremities ASSESSMENT : Patient presents with very painful hips, back and bilateral knees, completed supine TKR ex. , educated patient on TKR , instruct in using WW during ambulation, instruct in bed mobility and transfers . Requires skilled PT for vc and assist with ex. per TKR protocol, gait instruction, transfers and using wheeled walker. Patient Disposition at Start of Session: Supine in Bed Patient Disposition at End of Session: Supine in Bed;Call Power in Reach (ice on bilateral knees) Tolerated Full Session Physical Therapy Problem List: Decreased Range Of Motion;Decreased Strength;Functional Mobility Impairment Patient /Caregiver Goals: Go Home Learning/Educational Needs: Discharge Plan;Equipment;Family Education/Training;Functional Activities/Mobility;Rehabilitation Techniques and Procedures;Precautions Goals for Plan of Care: Able to perform HEP with: Independent Transfer supine to/from sit with: Independent Transfer sit to/from stand with: Independent Ambulate with: Independent Distance: 150 Device: Wheeled Walker Ambulate up and down curb step with: Modified Independent Device: Cane Ambulate up and down steps with: Modified Independent Number of steps: 2 Device: Rail ROM: 0-95 B Progress Toward Goals: Progressing as expected Rehab Potential: Good PLAN: Treatment Frequency (times per week): 7 Treatment Duration (number): 3 Weeks Treatment Interventions: Joint Mobility;Strengthening;Functional Mobility Training Plan of Care developed with: Patient;Caregiver TREATMENT INTERVENTIONS: Therapy Diagnosis: Reduced mobility-other;Abnormalities of gait and mobility-other Interventions Provided: Therapeutic Exercise (60805);Gait Training (93025) Therapeutic Exercise (48703) Treatment Minutes: 30 2 units Skilled Intervention(s): Instruction in therapeutic exercise vc assist with ex. ex. Per flow sheet per TKR protocol Therapeutic Activity (13732) Treatment Minutes: 15 1 unit Skilled Intervention(s): Instructed patient in supine to sit pushing with upper extremities to sit up Instructed patient in sit to supine using safe, effective technique Instruction in sit to stand technique with proper hand placement and body positioning at edge of bed/chair Instruction in stand to sit technique with lower extremities touching chair/bed and reaching back for surface Instruction in sit to and from stand technique with proper hand placement and body positioning at edge of bed/chair Education with patient regarding TKR protocol , therapy issues, gait with WW Gait Training (79755) Treatment Minutes: 15 1 unit Skilled Intervention(s): Instruction in sit to stand technique with proper hand placement and body positioning at edge of bed/chair, Instruction in stand to sit technique with LE's touching chair/bed and reaching back for surface and Instruction in sequencing, gait pattern Total Timed Code Treatment Minutes: 60 Total Treatment Time (minutes): 60 SUBJECTIVE: Current Hospital Course: Chart reviewed and no significant medical updates relevant to therapy were noted Reason for Physical Therapy Consult : s/p B TKA presents for post op rehab Relevant Past Medical History: left meniscus repair, degenerative disc disease in back, ankylosing spondylitis, sciatica on left side Patient Report: her hip , back and knees hurt she was very painful last evening and they had to call the physician at 2:00 AM and almost took me to the Ed dept, I am very fatigued today and uncomfortable. Home Environment Patient Lives With: Spouse Assistance Available: 24 Hour Entry To Home: Stairs;Without Rail Number Of Stairs Into Home: 1 (+1) Tub/Shower Type: tub/shower combo Laundry: main floor laundry Equipment Owned: Commode-Raised;Standard Walker;Wheeled Walker;Rollator;Shower Chair;Front Facer;Grab Bars-Shower Prior Functional Level: Within Functional Limits OBJECTIVE: CURRENT FUNCTIONAL STATUS: Gross Motor Function Range of Motion: WFL Except;Left LE Measurement;Right LE Measurement Right Knee ROM: 5-70 Left Knee ROM: 5-80 Strength: WFL Except;Right LE Measurement;Left LE Measurement Right Hip Flexion Strength: 4/5 Right Hip Extension Strength: 4-/5 Right Knee Extension Strength: 4-/5 Left Hip Flexion Strength: 4/5 Left Hip Extension Strength: 4-/5 Left Knee Extension Strength: 4-/5 Functional Mobility Assist Level Additional Information Rolling Independent Supine to Sit Contact Guard Assistance Sit to Supine Maximal Assistance Scooting Independent Sit to Stand Contact Guard Assistance Stand to Sit Contact Guard Assistance Bed to Chair Contact Guard Assistance Bed To Chair Transfer Type: Stand Pivot Bed To Chair Transfer Equipment: Standard Walker Toilet/Commode Contact Guard Assistance Gait Contact Guard Assistance Gait Device: Wheeled Walker Gait Distance (feet): 10' x 2 Stairs Curb Step Car Transfer Gait Deviations Right Lower Extremity: Knee flexion during stance increased;Step length decreased Gait Deviations Left Lower Extremity: Knee flexion during stance increased;Step length decreased General Gait Deviations: Flexed trunk posture (decreased knee flexion in swing phase B) Please see discipline specific clinical documentation flowsheet for complete details for this therapy evaluation/treatment. SIGNATURE: Sandee Cooley PTA PATIENT NAME: Dinah Cool DATE: May 13, 2018 TIME: 10:58 AM NURSING PROG Observed: 05/13/2018 Status: COMPLETED Source: [place] 2:43 AM [facility] REPOSITORY HNO ID: [id number] Author: Paty Obregon RN Service: Nursing Author Type: Registered Nurse Type: Nursing Progress Note Filed: 05/13/2018 2:44 AM Note Text: Nursing Progress Note Patient Name: Dinah Cool Patient Location: -* Daily Note:Dr. Johnston returned call and was updated on her pain not being controlled. New orders received, read back, verified and noted. This note was completed by: Paty Obregon RN NURSING PROG Observed: 05/13/2018 Status: COMPLETED Source: [place] 2:25 AM [facility] REPOSITORY HNO ID: [id number] Author: Paty Obregon RN Service: Nursing Author Type: Registered Nurse Type: Nursing Progress Note Filed: 05/13/2018 2:26 AM Note Text: Nursing Progress Note Patient Name: Dinah Cool Patient Location: /-* Daily Note:Sencond call placed to the doctor. This note was completed by: Paty Obregon RN NURSING PROG Observed: 05/13/2018 Status: COMPLETED Source: [place] 2:01 AM [facility] REPOSITORY HNO ID: [id number] Author: Mirian Doyle LPN Service: Nursing Author Type: LICENSED NURSE Type: Nursing Progress Note Filed: 05/13/2018 2:07 AM Note Text: Pt awake in bed, uncontrolled back pain, offered repositioning to side with pillow between legs, pt refused, states it does help, offered pt to try sitting in recliner chair, pt refused, states will not help, tried to sit earlier in the chair and it did not work, Offered heat and cold, refused, states does not help, Notified RN Paty,, to call Dr Johnston, of pt condition. Pt stated, the other hospital gave me IV morphine 4mg to ease the pain. NURSING PROG Observed: 05/13/2018 Status: COMPLETED Source: [place] 1:55 AM [facility] REPOSITORY HNO ID: [id number] Author: Paty Obregon RN Service: Nursing Author Type: Registered Nurse Type: Nursing Progress Note Filed: 05/13/2018 1:57 AM Note Text: Nursing Progress Note Patient Name: Dinah Cool Patient Location: [place] [address] [address] Daily Note: Call placed through answering service to updated doctor on her pain not being under controll. This note was completed by: Paty Obregon RN NURSING PROG Observed: 05/12/2018 Status: COMPLETED Source: [place] 11:58 PM [facility] REPOSITORY HNO ID: [id number] Author: Mirian Doyle LPN Service: Nursing Author Type: LICENSED NURSE Type: Nursing Progress Note Filed: 05/13/2018 12:05 AM Note Text: Pt complaint of continues chronic back pain, 04/10, states goes to pain management, uses tens stimulation unit for back, pt donned unit to self, offered warm packs, pt refused, admin flexiril, pt states [facility], but our recliner will not work. States the bed is hard on the back also, usually sleeps on side or prone, unable to change position d/t himanshu knee. Gave pt emotional support, call light and belongings in reach. NURSING PROG Observed: 05/12/2018 Status: COMPLETED Source: [place] 9:12 PM [facility] REPOSITORY HNO ID: [id number] Author: Mirian BradfordFinancial Reporting Analyst) ANDREA Doyle Service: Nursing Author Type: LICENSED NURSE Type: Nursing Progress Note Filed: 05/12/2018 9:13 PM Note Text: Pt states last BM was on May 08 THERAPY NT Observed: 05/12/2018 Status: COMPLETED Source: [place] 5:27 PM [facility] REPOSITORY HNO ID: [id number] Author: Lucy (Pt) JUN Pérez Service: Physical Therapy Author Type: Physical Therapist Type: Therapy (PT/OT/Speech/Resp) Filed: 05/12/2018 5:32 PM Note Text: Physical Therapy [facility] Facility Evaluation SERVICE DATE: 05/12/2018 SERVICE TIME: 1405 to 1440 ROOM: [place] [address] Recommended Discharge Disposition: Home PT Anticipated Discharge Needs: Family Training;Equipment;Supervision at Home PT Recommendations to Nursing: Ambulate with device;To bathroom;OOB for Meals Device: Wheeled Walker Precautions/Activity Restrictions: Total Knee Replacement (bilateral) Precaution/Activity Restriction Comments: WBAT bilateral lower extremities ASSESSMENT : Patient presents with impaired ease of mobility post TKR.. Requires skilled PT for mobility training. Patient with significant history for back pain with spinal stenosis and DDD. Uses TENS unit to help with pain relief. Tolerated Full Session Physical Therapy Problem List: Decreased Range Of Motion;Decreased Strength;Functional Mobility Impairment Patient /Caregiver Goals: Go Home Learning/Educational Needs: Discharge Plan;Equipment;Family Education/Training;Functional Activities/Mobility;Rehabilitation Techniques and Procedures;Precautions Goals for Plan of Care: Able to perform HEP with: Independent Transfer supine to/from sit with: Independent Transfer sit to/from stand with: Independent Ambulate with: Independent Distance: 150 Device: Wheeled Walker Ambulate up and down curb step with: Modified Independent Device: Cane Ambulate up and down steps with: Modified Independent Number of steps: 2 Device: Rail ROM: 0-95 B Progress Toward Goals: Progressing as expected Rehab Potential: Good PLAN: Treatment Frequency (times per week): 7 Treatment Duration (number): 3 Weeks Treatment Interventions: Joint Mobility;Strengthening;Functional Mobility Training Plan of Care developed with: Patient;Caregiver TREATMENT INTERVENTIONS: Therapy Diagnosis: Reduced mobility-other;Abnormalities of gait and mobility-other Interventions Provided: Evaluation;Therapeutic Exercise (89768);Gait Training (96855);Therapeutic Activity (86331) $ Evaluation-Moderate (10328) Billed Units: 1 unit Therapeutic Exercise (35123) Treatment Minutes: 5 0 units Skilled Intervention(s): Instruction in therapeutic exercise per flow sheet Therapeutic Activity (01755) Treatment Minutes: 5 1 unit Skilled Intervention(s): Instruction in sit to stand technique with proper hand placement and body positioning at edge of bed/chair. Instructed in positioning including sidelying with pillows between knees. Patient also instructed that prone lying is ok for brief periods of time. Gait Training (57613) Treatment Minutes: 5 0 units Skilled Intervention(s): Instruction in correction of gait deviations and Instruction in use of equipment, cues for sequence and pattern Total Timed Code Treatment Minutes: 15 Total Treatment Time (minutes): 35 SUBJECTIVE: Current Hospital Course: Chart reviewed; Patient with PMH including CAD, GERD, OA, osteopenia Reason for Physical Therapy Consult : s/p B TKA presents for post op rehab Relevant Past Medical History: left meniscus repair, degenerative disc disease in back, ankylosing spondylitis, sciatica on left side Patient Report: Reports knees are doing ok but having significant issues with her back. Typically is a side or stomach sleeper. States she is having difficulty getting comfortable. Home Environment Patient Lives With: Spouse Assistance Available: 24 Hour Entry To Home: Stairs;Without Rail Number Of Stairs Into Home: 1 (+1) Tub/Shower Type: tub/shower combo Laundry: main floor laundry Equipment Owned: Commode-Raised;Standard Walker;Wheeled Walker;Rollator;Shower Chair;Front Facer;Grab Bars-Shower Prior Functional Level: Within Functional Limits OBJECTIVE: CURRENT FUNCTIONAL STATUS: Gross Motor Function Range of Motion: WFL Except;Left LE Measurement;Right LE Measurement Right Knee ROM: 5-70 Left Knee ROM: 5-80 Strength: WFL Except;Right LE Measurement;Left LE Measurement Right Hip Flexion Strength: 4/5 Right Hip Extension Strength: 4-/5 Right Knee Extension Strength: 4-/5 Left Hip Flexion Strength: 4/5 Left Hip Extension Strength: 4-/5 Left Knee Extension Strength: 4-/5 Functional Mobility Assist Level Additional Information Rolling Independent Supine to Sit Contact Guard Assistance Sit to Supine Minimal Assistance Scooting Modified Independent Sit to Stand Contact Guard Assistance Stand to Sit Contact Guard Assistance Bed to Chair Contact Guard Assistance Bed To Chair Transfer Type: Stand Pivot Bed To Chair Transfer Equipment: Standard Walker Toilet/Commode Gait Contact Guard Assistance Gait Device: Standard Walker Gait Distance (feet): 15 Stairs Curb Step Car Transfer Gait Deviations Right Lower Extremity: Knee flexion during stance increased;Step length decreased Gait Deviations Left Lower Extremity: Knee flexion during stance increased;Step length decreased General Gait Deviations: Flexed trunk posture (decreased knee flexion in swing phase B) Please see discipline specific clinical documentation flowsheet for complete details for this therapy evaluation/treatment. SIGNATURE: Lucy Pérez PT PATIENT NAME: Dinah Cool DATE: May 12, 2018 TIME: 5:27 PM THERAPY NT Observed: 05/12/2018 Status: COMPLETED Source: [place] 4:09 PM [facility] RE[facility] O ID: [id number] Author: Kraig BradfordOtLEONEL Farmer Service: Occupational Therapy Author Type: Occupational Therapist Type: Therapy (PT/OT/Speech/Resp) Filed: 05/12/2018 4:13 PM Note Text: Occupational Therapy [facility] Facility Evaluation SERVICE DATE: 05/12/2018 SERVICE TIME: 1520 to 1555 ROOM: [place] [address] Recommended Discharge Disposition: Home OT Recommended Discharge Equipment: To Be Determined OT Recommendations to Nursing: To Bathroom for ADL?s /and or Toileting;OOB for meals;With assist of 1 person Equipment: Standard Walker Precautions/Activity Restrictions: Total Knee Replacement (bilateral) Precaution/Activity Restriction Comments: WBAT bilateral lower extremities ASSESSMENT: Patient presents with bilateral knee replacement surgeries resulting in bilateral lower extremity pain, weakness, impaired transfers and bed mobility, impaired ADL and IADL function.. Requires skilled OT for ADL retraining with appropriate AE, transfer training, generalized strengthening and activity tolerance exercises, education on safety with IADL, recommendations for a safe discharge.. Patient Disposition at Start of Session: OOB in Chair Patient Disposition at End of Session: (In bed side-lying with pillow between knees) Tolerated Full Session Occupational Therapy Problem List: Pain;Safety Deficits;Impaired Self Care;Decreased Activity Tolerance;Decreased Strength;Functional Mobility Impairment Patient /Caregiver Goals: Go Home;Care For Self Learning/Educational Needs: Family Education/Training;Functional Activities/Mobility;Pain Management;Precautions;Rehabilitation Techniques and Procedures;Safety;Self Care Goals for Plan of Care: Able to perform HEP with: Independent Upper Body Bathing with: Set Up Upper Body Dressing with: Set Up Lower Body Bathing with: Stand By Assistance Lower Body Dressing with: Stand By Assistance Toilet Hygiene with: Supervision Chair Transfer with: Modified Independent Toilet Transfer with: Modified Independent Tub Transfer with: Supervision Kitchen Mobility Tasks with: Supervision Progress Toward Goals: Progressing as expected Rehab Potential: Good PLAN: Treatment Frequency (times per week): 5 Treatment Duration (number): 2 Weeks Treatment Interventions: Education;Self Care / Home Management;Strengthening;Functional Mobility Training;Neuromuscular Re-education;Pain Management Plan of Care developed with: Patient;Caregiver TREATMENT INTERVENTIONS: Therapy Diagnosis: Reduced mobility-other;Decreased activities of daily living (ADL);Abnormalities of gait and mobility-other;Difficulty walking-musculoskeletal Interventions Provided: Evaluation;Therapeutic Activity (42118) $ Evaluation-Low (30171) Billed Units: 1 unit Therapeutic Activity (00706) Treatment Minutes: 10 1 unit Skilled Intervention(s): Instruction in sit to and from stand technique with proper hand placement and body positioning at edge of bed/chair Total Timed Code Treatment Minutes: 10 Total Treatment Time (minutes): 35 SUBJECTIVE: Current Hospital Course: Chart reviewed; Patient under went bilateral knee replacement surgeries. Uneventful recovery. Admitted to [facility] for rehab prior to discharge to home. Reason for Occupational Therapy Consult: OT eval secondary to bilateral knee replacement surgery Relevant Past Medical History: left meniscus repair, degenerative disc disease in back, ankylosing spondylitis, sciatica on left side Patient Report: My back is killing me. They told me I needed to keep my legs straight. Education provided as to positioning for comfort versus positioning for safety. Home Environment Patient Lives With: Spouse Assistance Available: 24 Hour Entry To Home: Stairs;Without Rail Number Of Stairs Into Home: 1 (+1) Tub/Shower Type: tub/shower combo Laundry: main floor laundry Equipment Owned: Commode-Raised;Standard Walker;Wheeled Walker;Rollator;Shower Chair;Front Facer;Grab Bars-Shower Prior Functional Level: Within Functional Limits OBJECTIVE: Gross Motor Function Hand Dominance: Right Range of Motion: WFL Strength: WFL (grossly 4/5 bilaterally) Current Activities of Daily Living Assist Level Feeding Set Up Grooming Set Up Bathing Upper Body Minimal Assistance Bathing Lower Body Moderate Assistance Dressing Upper Body Minimal Assistance Dressing Lower Body Moderate Assistance Toileting Moderate Assistance Instrumental Activities of Daily Living Assist Level Meal/Beverage Prep Total Assistance Light Cleaning Total Assistance Laundry Total Assistance Medication Management with Strategies Functional Mobility Assist Level Rolling Contact Guard Assistance Supine to Sit Minimal Assistance Sit to Supine Minimal Assistance Scooting Minimal Assistance Sit to Stand Contact Guard Assistance Stand to Sit Contact Guard Assistance Bed to Chair Contact Guard Assistance Stand Pivot Standard Walker;Gait Belt Toilet/Commode Contact Guard Assistance Tub Transfer Shower Transfer Functional Mobility Car Transfer Please see discipline specific clinical documentation flowsheet for complete details for this therapy evaluation/treatment. SIGNATURE: RIRI Parada/Mark PATIENT NAME: Dinah Cool DATE: May 12, 2018 TIME: 4:09 PM NURSING PROG Observed: 05/12/2018 Status: COMPLETED Source: [place] 4:00 PM [facility] REPOSITORY HNO ID: [id number] Author: Rani Quintero RN Service: Nursing Author Type: Registered Nurse Type: Nursing Progress Note Filed: 05/12/2018 5:50 PM Note Text: Nursing Progress Note Patient Name: Dinah Cool Patient Location: [place] [address] [address] Daily Note: spoke with Dr Sheets to verify pt's home medications. Orders were changed and new orders were added. This note was completed by: Rani Quintero RN NURSING PROG Observed: 05/12/2018 Status: COMPLETED Source: [place] 3:55 PM [facility] REPOSITORY HNO ID: [id number] Author: Rani Quintero RN Service: Nursing Author Type: Registered Nurse Type: Nursing Progress Note Filed: 05/12/2018 5:48 PM Note Text: Nursing Progress Note Patient Name: Dinah Cool Patient Location: /-* Daily Note: pt arrived by personal vehicle with spouse. Pt transferred to EW via w/c by RN. Pt oriented to unit and to her room. Explained to pt need to call for assist when out of bed or to get item out of reach, pt verbalized understanding of instruction. Welcom packet given to pt. Unpacked pt's luggage with assist from pt and spouse. Pt brought her TENS unit from home to use while in hospital for her chronic back pain. This note was completed by: Rani Quintero RN OPHTHALMIC EYE EXAM Observed: 04/20/2018 Status: UNK Source: [place] 10:00 AM [facility] DOCUMENT SIGNED ELECTRONICALLY BY Irving Foster MD ON 04/20/2018 14:24:28 THIS DOCUMENT WAS CREATED ON: 04/20/2018 02:24:20 PM BY: MD Neeru Sewell performed RTVCN-Ddij-[id number] Exam Date: April PATIENT NAME: DINAH COOL DATE: 1945 AGE: 72 GENDER: Female RACE: White PRIMARY CARE PHYSICIAN: Lorena Maher History Chief Complaint/Reason For Visit: Problem-f/u,brvo os. S/p MEGAN OS # 3 () Pt sts she did NOT have an injection at last visit, Pt feels VA seems about the same since LV, HISTORY OF PRESENT ILLNESS: PROBLEM: f/u,brvo os. S/p MEGAN OS # 3 () Pt sts she did NOT have an injection at last visit, Pt feels VA seems about the same since LV HPI was performed by Dr. Irving Foster MD and scribed by Amor Foster MD PAST MEDICAL HISTORY: OCULAR: Refractive error OU PROCEDURES : EYLEA INJECTION OS 12/23/2017, EYLEA INJECTION OS 02/24/2018, EYLEA INJECTION OS 04/20/2018 INFECTIOUS: No known previous infections OCULAR SIGNIFICANT: None ILLNESSES: High cholesterol; SURGERIES: History of Ovarian Cystectomy; HEAD/OCULAR TRAUMA: No known history of trauma FAMILY HISTORY: MOTHER: Family history of macular degeneration CURRENT MEDICATIONS: Climara 0.025 MG/24HR Tra Patch Weekly, [Reported] Drisdol 31587 UNIT Oral C Capsule, [Reported] Hydrocodone-Acetaminophen Tablet, [Reported] Omeprazole 40 MG Oral Cap Capsule Delayed Release, [Reported] Simvastatin 40 MG Oral Ta Tablet, [Reported] ALLERGIES: Allergies Last Reviewed on:04/20/2018 IV Dye:Adverse reaction to substance ([id number]), Tetracyclines REVIEW OF SYSTEMS: All other Review Of Systems negative Exam ORIENTATION, MOOD AND AFFECT: Alert AND oriented x3 RIGHT EYE LEFT EYE UNCORRECTED VA 20/200 20/80 PINHOLE 20/40 20/40- PRESSURE METHOD: Applanation Applanation PRESSURES: 14 14 DATE-TIME: 10:50 AM 10:50 AM FIELD MARKETING COORDINATOR: [email or web address] EXTERNAL EYE EXAM: LID: Good Position Good Position PUPIL: pharmacologically dilated pharmacologically dilated from previous exam from previous exam ADNEXA: Normal Normal MUSCLE BALANCE: Ortho OCULAR MOTILITY: Full ANTERIOR SEGMENT EXAM: FUNDUS EXAM: Impression H34.8320 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 f/u in 2-3 monrhs DFE/OCT created by:Irving Foster MD Irving Foster MD DOCUMENT CREATE DATE: 04/20/2018 02:24:23 PM PROCEDURES: EYLEA INJECTION OS ,H34.8320,BRVO,ME OS EYE: OS, ADMINISTERED MEDICATION: EYLEA MEDICATION CPT: J0178 MEDICATION INVENTORY NUMBER: MEDICATION LOT NUMBER: [id number] MEDICATION DOSAGE: 0.05 ML/2 MG OP NOTE 31861 Intravitreal Injection of a Pharmacologic Agent (separate Procedure) Op note Eylea 06537 The nature of the patient`s condition was discussed and the patient`s questions were answered. The risks of Intravitreal Eylea Injection were reviewed including possible endophthalmitis vitreous hemorrhage subconjuctival hemorrhage retinal tear or detachment glaucoma cataract decreased vision loss of vision or the eye heart attack or stroke. The patient was warned that the eye may tear and feel irritated today but should resolve within a few days and new floaters may be seen for the next few days. An informed cons ent was obtained. The correct eye was confirmed via a formal time out procedure. The surface of the eye was anesthetized with topical proparacaine and lidocaine. After a sterile lid speculum was inserted the eye was prepped with Betadine. Eylea was drawn from a single dose vial per standard protocol. 2mg in 0.05mL of Eylea was given via a pars plana injection using a 30gauge needle 3.5mm from the limb us. An antibiotic drop was given topically. There were no procedure related complications. Vision was easily count fingers. Endophthalmitis retinal tear retinal detachment symptoms were reviewed with the patient. The patient was instructed to call with increased redness pain flashes or decreased vision. Return visit 2 months OCT/DFE or PRN for decreased vision or increased symptoms. DOCTOR: Irving Foster MD DOCTOR: Irving Foster MD : By Doctor Irving Foster MD The Following Users Updated This Patient Encounter: MD Neeru Sewell TIMEOUT CONFIRMATION(S) COMPLETED EYLEA INJECTION OS BY [email or web address] FOR [email or web address] AT 04/20/2018 2:10:38 PM Received for:Irving Foster Apr 20 2018 2:24PM Eastern Standard Time OPHTHALMIC INJECTION Observed: 04/20/2018 Status: UNK Source: [place] 10:00 AM [facility] REPOSITORY DOCUMENT SIGNED ELECTRONICALLY BY Irving Foster MD ON 04/20/2018 02:37:47 PM [facility] [address], [address] [place], [address] [phone] 04/20/2018 PATIENT NAME DINAH COOL [address] [facility] [address] DIAGNOSIS: H34.8320 BRVO ME OS PROCEDURE NAME: EYLEA INJECTION PROCEDURE CPT: 74316 MEDICATION CODE: EYLEA INJECTION EYE: OS ADMINISTERED MEDICATION: EYLEA MEDICATION CPT: J0178 MEDICATION INVENTORY NUMBER: MEDICATION LOT NUMBER: [id number] MEDICATION DOSAGE: 0.05 ML/2 MG OP NOTE: 55066 Intravitreal Injection of a Pharmacologic Agent (separate Procedure) Op note Eylea 38495 The nature of the patient's condition was discussed and the patient's questions were answered. The risks of Intravitreal Eylea Injection were reviewed including possible endophthalmitis, vitreous hemor rhage, subconjuctival hemorrhage, retinal tear or detachment, glaucoma, cataract, decreased vision, loss of vision or the eye, heart attack or stroke. The patient was warned that the eye may tear and feel irritated today but should resolve within a few days and new floaters may be seen for the next few days. An informed consent was obtained. The correct eye was confirmed via a formal time out pro cedure. The surface of the eye was anesthetized with topical proparacaine and lidocaine. After a sterile lid speculum was inserted, the eye was prepped with Betadine. Eylea was drawn from a single do se vial per standard protocol. 2mg in 0.05mL of Eylea was given via a pars plana injection using a 30gauge needle 3.5mm from the limbus. An antibiotic drop was given topically. There were no procedur e related complications. Vision was easily count fingers. Endophthalmitis, retinal tear, retinal detachment symptoms were reviewed with the patient. The patient was instructed to call with increased redness, pain, flashes, or decreased vision. Return visit 2 months OCT/DFE or PRN for decreased vision or increased symptoms. DOCTOR: Irving Foster MD; Prepared by:[email or web address] Received for:Irving Foster Apr 20 2018 2:37PM Eastern Standard Time CAROTID DUPLEX Observed: 03/15/2018 Status: F Source: [place] [facility] 8:[address] [facility] REPOSITORY [facility] Cardiovascular Services [address] [place], [place] [address] [address] Carotid Duplex Ultrasound 03/13/18 0758 MR#: [id number] Acct: [id number] Name: DINAH COOL Rep #: [id number] : 1945 72 From: Dane Jones MD Attending Dr: Lorena Maher DO Status: REG CLI Ordering Dr: Lorena Maher DO Date: 03/13/18 Location: [facility] Sex: F C Admitted: Reason For Study: carotid bruits Rt. Velocities/BP [...] Vert. 49.5/14.9 cm/sec. Right Extracranial There is homogeneous, smooth atherosclerotic plaque [...] no significant atherosclerotic plaque noted in the left external carotid artery. Antegrade flow is noted in the left vertebral artery. Interpretation Summary Mild (<50%) stenosis right extracranial internal carotid. Mild (<50%) stenosis left extracranial internal carotid. Flow within the vertebral arteries is antegrade bilaterally. Ordering Physician: Lorena Maher Referring Physician: Lorena Maher Performed By: Sheri Hayes, VITALIY, RVT 03/15/18 0808 Date Dane Jones MD CC: Lorena Maher DO Date Dictated: 03/13/18 0758 Date Transcribed: 03/15/18 08 Accounts Payables Clerk: Signed OPHTHALMIC INJECTION Observed: 02/24/2018 Status: UNK Source: [place] 5:09 PM HOSPITALS REPOSITORY DOCUMENT SIGNED ELECTRONICALLY BY Irving Foster MD ON 02/24/2018 05:29:33 PM [place] [address] [address] [place] [address] 02/24/2018 PATIENT NAME DINAH COOL [address] [address] DIAGNOSIS: H34.8320 BRVO ME OS PROCEDURE NAME: EYLEA INJECTION PROCEDURE CPT: 51159 MEDICATION CODE: EYLEA INJECTION EYE: OS ADMINISTERED MEDICATION: EYLEA MEDICATION CPT: J0178 MEDICATION INVENTORY NUMBER: MEDICATION LOT NUMBER: MEDICATION DOSAGE: 0.05 ML/2 MG OP NOTE: 21489 Intravitreal Injection of a Pharmacologic Agent (separate Procedure) Op note Eylea 14407 The nature of the patient's condition was discussed and the patient's questions were answered. The risks of Intravitreal Eylea Injection were reviewed including possible endophthalmitis, vitreous hemor rhage, subconjuctival hemorrhage, retinal tear or detachment, glaucoma, cataract, decreased vision, loss of vision or the eye, heart attack or stroke. The patient was warned that the eye may tear and feel irritated today but should resolve within a few days and new floaters may be seen for the next few days. An informed consent was obtained. The correct eye was confirmed via a formal time out pro cedure. The surface of the eye was anesthetized with topical proparacaine and lidocaine. After a sterile lid speculum was inserted, the eye was prepped with Betadine. Eylea was drawn from a single do se vial per standard protocol. 2mg in 0.05mL of Eylea was given via a pars plana injection using a 30gauge needle 3.5mm from the limbus. An antibiotic drop was given topically. There were no procedur e related complications. Vision was easily count fingers. Endophthalmitis, retinal tear, retinal detachment symptoms were reviewed with the patient. The patient was instructed to call with increased redness, pain, flashes, or decreased vision. Return visit 5 weeks #3 of 3 eylea OS or PRN for decreased vision or increased symptoms. DOCTOR: Irving Foster MD; Prepared by:[email or web address] Received for:Irving Foster Feb 24 2018 5:29PM Eastern Standard Time OPHTHALMIC PROGRESS Observed: 02/24/2018 Status: UNK Source: [facility] [place] 5:09 PM [facility]OSPITALS REPOSITORY DOCUMENT SIGNED ELECTRONICALLY BY Irving Foster MD ON 02/24/2018 05:29:42 PM [place] [address] [address] [place] [address] 02/24/2018 PATIENT'S ACCOUNT: [id number] PATIENT NAME DINAH COOL [address] [address] This injection was given on February 23 2018 @ [place] Office: EYLEA INJECTION OS ,H34.8320,BRVO,ME OS ;EYE: OS, ADMINISTERED MEDICATION: EYLEA; MEDICATION CPT: J0178; MEDICATION INVENTORY NUMBER: ; MEDICATION LOT NUMBER: ; MEDICATION DOSAGE: 0.05 ML/2 MG;;OP NOTE:;02107 Intravitreal Injection of a Pharmacologic Agent (separate Procedure) Op note Eylea 87835 The nature of the patient`s cond ition was discussed and the patient`s questions were answered. The risks of Intravitreal Eylea Injection were reviewed including possible endophthalmitis; vitreous hemorrhage; subconjuctival hemorrhag e; retinal tear or detachment; glaucoma; cataract; decreased vision; loss of vision or the eye; heart attack or stroke. The patient was warned that the eye may tear and feel irritated today but should resolve within a few days and new floaters may be seen for the next few days. An informed consent was obtained. The correct eye was confirmed via a formal time out procedure. The surface of the eye was anesthetized with topical proparacaine and lidocaine. After a sterile lid speculum was inserted; the eye was prepped with Betadine. Eylea was drawn from a single dose vial per standard protocol. 2mg in 0.05mL of Eylea was given via a pars plana injection using a 30gauge needle 3.5mm from the limbus. An antibiotic drop was given topically. There were no procedure related complications. Vision was easily count fingers. Endophthalmitis; retinal tear; retinal detachment symptoms were reviewed with the patient. The patient was instructed to call with increased redness; pain; flashes; or decr eased vision. Return visit 5 weeks #3 of 3 eylea OS or PRN for decreased vision or increased symptoms. ;DOCTOR: Irving Foster MD;;DOCTOR: Irving Foster MD; : By Doctor Omari Foster MD (Note amended for: [email or web address] for exam on: 02/23/2018) Prepared by:[email or web address] Rendering Doctor: [email or web address] Received for:Irving Foster Feb 24 2018 5:29PM Eastern Standard Time OPHTHALMIC EYE EXAM Observed: 02/23/2018 Status: UNK Source: [place] 10:40 AM HOSPITALS REPOSITORY DOCUMENT SIGNED ELECTRONICALLY BY Irving Foster MD ON 02/23/2018 12:53:48 [place] [address] [address] [place] [address] THIS DOCUMENT WAS CREATED ON: 02/23/2018 12:53:40 PM BY: MD Jordin Sewell performed [facility] Exam Date: January PATIENT NAME: DINAH COOL DATE: 1945 AGE: 72 GENDER: Female RACE: White PRIMARY CARE PHYSICIAN: Lorena Maher History Chief Complaint/Reason For Visit: Patient has returned for vision exam due to decreased vision. States the eyes may be worse. There has bee no eye pain but told there is some swelling in the eye. HISTORY OF PRESENT ILLNESS: PROBLEM: Blurry vision CONTEXT/ONSET: today LOCATION: both eyes QUALITY: slightly fuzzy both eyes SEVERITY: mild TIMING: every day HPI was performed by Dr. Irving Foster MD and scribed by Amor Foster MD FAMILY HISTORY: MOTHER: Family history of macular degeneration CURRENT MEDICATIONS: Climara 0.025 MG/24HR Tra Patch Weekly, [Reported] Drisdol [address] UNIT Oral C Capsule, [Reported] Hydrocodone-Acetaminophen Tablet, [Reported] Omeprazole 40 MG Oral Cap Capsule Delayed Release, [Reported] Simvastatin 40 MG Oral Ta Tablet, [Reported] ALLERGIES: Allergies Last Reviewed on:11/17/2017 IV Dye:Adverse reaction to substance ([id number]), Tetracyclines REVIEW OF SYSTEMS: All other Review Of Systems negative Exam ORIENTATION, MOOD AND AFFECT: Alert AND oriented x3 RIGHT EYE LEFT EYE UNCORRECTED VA 20/60 20/100 PINHOLE 20/25 20/30 PRESSURE METHOD: Applanation Applanation PRESSURES: 17 17 DATE-TIME: 11:26 AM 11:26 AM FIELD MARKETING COORDINATOR: emiliana hopson EXTERNAL EYE EXAM: LID: Good Position Good Position PUPIL: pharmacologically dilated pharmacologically dilated from previous exam from previous exam ADNEXA: Normal Normal MUSCLE BALANCE: Ortho OCULAR MOTILITY: Full ANTERIOR SEGMENT EXAM: TEARFILM: Good Good CONJUNCTIVA: White and quiet White and quiet CORNEA: Clear Clear ANTERIOR CHAMBER: Deep and quiet Deep and quiet IRIS: Round and reactive Round and reactive LENS: +1-2 NS +1-2 NS ANTERIOR VITREOUS: Clear Clear FUNDUS EXAM: CUP TO DISC: .3 .3 OPTIC DISC: [place] and sharp [place] and sharp VITREOUS: Clear Clear MACULA: Normal reflex flame shaped heme- resloved, few cws, macular edema VESSELS: Normal BRVO PERIPHERY: No tears, breaks, or holes No tears, breaks, or holes Impression 01 H34.8320 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 2) Nuclear sclerosis, both eyes Recommend: Eylea OS today #2 Followup: 5 weeks Sooner PRN or if symptoms/vision worsen. Plan TODAY (OU) - OCT Macula By:Irving Foster MD Irving Foster MD DOCUMENT CREATE DATE: 02/23/2018 12:53:42 PM The Following Users Updated This Patient Encounter: Jordin Foster MD Received for:Irving Foster Feb 23 2018 12:53PM Eastern Standard Time PROGRESS Observed: 01/09/2018 Status: COMPLETED Source: [place] 3:56 PM CLINIC OTHER CAMPUS REPOSITORY O ID: [id number] Author: Talia Valentin Service: (none) Author Type: Physician Type: Progress Notes Filed: 01/10/2018 4:45 AM Note Text: ESTABLISHED PATIENT VISIT HPI Dinah Cool is a 72 year old female who presents today post-op. Patient presents status post SSLF and anterior repair. She is doing well with the exception of urinary incontinence (she did not have a sling) On exam her apex and anterior wall are well supported. Suture line is intact. We reviewed treatment options for the rudolph, she is going to start oxybutynin and we will further discuss a sling. Color/Appearance (comment:) Date Value 01/09/2018 yellow/clear Glucose, Urine (mg/dL) Date Value 01/09/2018 neg Bilirubin, Urine (no units) Date Value 01/09/2018 neg Ketones, Urine (no units) Date Value 01/09/2018 neg Specific Covert, Ur (no units) Date Value 01/09/2018 1.030 Hemoglobin/Blood,Ur (no units) Date Value 01/09/2018 trace-lysed pH, Urine (no units) Date Value 01/09/2018 5.5 Protein, Urine (mg/dL) Date Value 01/09/2018 neg Nitrites (no units) Date Value 01/09/2018 neg REVIEW OF SYSTEMS GENERAL:No weight loss, malaise or fevers., SEE HPI GENITOURINARY: See HPI CONSTITUTIONALl: No recent fever or weight loss ALLERGIES Allergen Reactions - Contrast Dye [Iodin* Vomiting Severe Nausea - Tetracycline Hives HISTORIES PAST MEDICAL HISTORY Diagnosis Date - Artificial menopause state - Atelectasis Last xray 05/2018, ongoing for years, seen by Dr Esquivel, worked around chemicals - CAD (coronary artery disease) pt denies - Carotid artery disease (HCC) US 05/17, Dr Maher follows, no need for surgical intervention at this time - Chronic back pain - Fatty liver - GERD (gastroesophageal reflux disease) - Hyperlipidemia - Macular degeneration - Migraine resolved after ear peircing - Multiple thyroid nodules 12/05/2012 Thyroid ultrasound in 10/2012 showed 2 small nodules in right lobe, 6 mm cyst and 8 mm nodule. Thyroid ultrasound in 06/2013 showed 2 small nodules are seen within the right lobe, both 8 mm. Left lobe and isthmus show no nodules. Thyroid ultrasound in 06/2014 showed 9 mm nodule in right lobe (mixed cystic/solid with hypervascular solid component), and another 8 mm right lobe nodule. Left lobe shows a new hyperechoic solid nodule, 4 mm. Thyroid ultrasound in 06/2015 showed 9 mm nodule and 8 mm nodule in right upper pole. Left lobe shows a 7 mm lower pole nodule (previously 5 mm). - Retinal hemorrhage Left eye; received injections x 3 FAMILY HISTORY Problem Relation Age of Onset - Thyroid Mother - Lipids Mother - Hypertension Mother - Thyroid Maternal Grandmother - thyroid cancer [OTHER] Other cousin sister Social History Substance Use Topics - Smoking status: Former Smoker Types: Cigarettes - Smokeless tobacco: Never Used Comment: Quit 13+ years ago - Alcohol use No MEDICATIONS: fexofenadine HCl (MUCINEX ALLERGY ORAL) Take 1 tablet by mouth as needed. estradiol - REMOVE PATCH oxymetazoline HCl (AFRIN NASAL) Use in the nose. ibuprofen (MOTRIN) 600 mg tablet Take 1 tablet by mouth every 8 hours as needed for Pain. aspirin, enteric coated (ASPIRIN, ENTERIC COATED) 81 mg EC tablet Take 81 mg by mouth once daily. cholecalciferol, vitamin D3, 50,000 unit tab Take by mouth once each week. simvastatin (ZOCOR) 40 mg tablet Take 40 mg by mouth daily at bedtime. Omeprazole (PRILOSEC) 40 mg capsule Take 40 mg by mouth once daily. HYDROcodone-Acetaminophen 7.5-325 mg per tablet Take 1 tablet by mouth every 8 hours as needed. ciprofloxacin HCl (CIPRO) 250 mg tablet Take 500 mg by mouth twice daily. TOOK FOR 3 DAYS 12/14- 12/17 FOR UTI SYMTOMS ALBUTEROL SULFATE INHALATION Inhale as instructed. PREDNISONE ORAL Take 1 tablet by mouth as directed. Taper dose estradiol 0.05 mg/24 hr Apply 1 Patch as directed once each week. Physical Exam BP 124/84 Ht 160 cm (5' 3) Wt 71.7 kg (158 lb) BMI 27.99 kg/m? ASSESSMENT/PLAN: Stress incontinence, female (primary encounter diagnosis) No Follow-up on file. JUVENTINO Observed: 01/09/2018 Status: COMPLETED Source: [place] 3:45 PM CLINIC OTHER CAMPUS REPOSITORY Office Visit (PINKY) DINAH COOL ([id number]) 1945 F Date Time Provider Department 01/09/18 3:45 PM TALIA VALENTIN During your visit today, we recorded the following information about you: Blood pressure Weight Height 124/84 71.7 kg 1.6 m Talia Valentin MD 01/10/2018 4:45 AM Signed ESTABLISHED PATIENT VISIT HPI Dinah Cool is a 72 year old female who presents today post-op. Patient presents status post SSLF and anterior repair. She is doing well with the exception of urinary incontinence (she did not have a sling) On exam her apex and anterior wall are well supported. Suture line is intact. We reviewed treatment options for the rudolph, she is going to start oxybutynin and we will further discuss a sling. Color/Appearance (comment:) Date Value 01/09/2018 yellow/clear Glucose, Urine (mg/dL) Date Value 01/09/2018 neg Bilirubin, Urine (no units) Date Value 01/09/2018 neg Ketones, Urine (no units) Date Value 01/09/2018 neg Specific Covert, Ur (no units) Date Value 01/09/2018 1.030 Hemoglobin/Blood,Ur (no units) Date Value 01/09/2018 trace-lysed pH, Urine (no units) Date Value 01/09/2018 5.5 Protein, Urine (mg/dL) Date Value 01/09/2018 neg Nitrites (no units) Date Value 01/09/2018 neg REVIEW OF SYSTEMS GENERAL:No weight loss, malaise or fevers., SEE HPI GENITOURINARY: See HPI CONSTITUTIONALl: No recent fever or weight loss ALLERGIES Allergen Reactions - Contrast Dye [Iodin* Vomiting Severe Nausea - Tetracycline Hives HISTORIES PAST MEDICAL HISTORY Diagnosis Date - Artificial menopause state - Atelectasis Last xray 05/2018, ongoing for years, seen by Dr Esquivel, worked around chemicals - CAD (coronary artery disease) pt denies - Carotid artery disease (HCC) US 05/17, Dr Maher follows, no need for surgical intervention at this time - Chronic back pain - Fatty liver - GERD (gastroesophageal reflux disease) - Hyperlipidemia - Macular degeneration - Migraine resolved after ear peircing - Multiple thyroid nodules 12/05/2012 Thyroid ultrasound in 10/2012 showed 2 small nodules in right lobe, 6 mm cyst and 8 mm nodule. Thyroid ultrasound in 06/2013 showed 2 small nodules are seen within the right lobe, both 8 mm. Left lobe and isthmus show no nodules. Thyroid ultrasound in 06/2014 showed 9 mm nodule in right lobe (mixed cystic/solid with hypervascular solid component), and another 8 mm right lobe nodule. Left lobe shows a new hyperechoic solid nodule, 4 mm. Thyroid ultrasound in 06/2015 showed 9 mm nodule and 8 mm nodule in right upper pole. Left lobe shows a 7 mm lower pole nodule (previously 5 mm). - Retinal hemorrhage Left eye; received injections x 3 FAMILY HISTORY Problem Relation Age of Onset - Thyroid Mother - Lipids Mother - Hypertension Mother - Thyroid Maternal Grandmother - thyroid cancer [OTHER] Other cousin sister Social History Substance Use Topics - Smoking status: Former Smoker Types: Cigarettes - Smokeless tobacco: Never Used Comment: Quit 13+ years ago - Alcohol use No MEDICATIONS: fexofenadine HCl (MUCINEX ALLERGY ORAL) Take 1 tablet by mouth as needed. estradiol - REMOVE PATCH oxymetazoline HCl (AFRIN NASAL) Use in the nose. ibuprofen (MOTRIN) 600 mg tablet Take 1 tablet by mouth every 8 hours as needed for Pain. aspirin, enteric coated (ASPIRIN, ENTERIC COATED) 81 mg EC tablet Take 81 mg by mouth once daily. cholecalciferol, vitamin D3, 50,000 unit tab Take by mouth once each week. simvastatin (ZOCOR) 40 mg tablet Take 40 mg by mouth daily at bedtime. Omeprazole (PRILOSEC) 40 mg capsule Take 40 mg by mouth once daily. HYDROcodone-Acetaminophen 7.5-325 mg per tablet Take 1 tablet by mouth every 8 hours as needed. ciprofloxacin HCl (CIPRO) 250 mg tablet Take 500 mg by mouth twice daily. TOOK FOR 3 DAYS 12/14- 12/17 FOR UTI SYMTOMS ALBUTEROL SULFATE INHALATION Inhale as instructed. PREDNISONE ORAL Take 1 tablet by mouth as directed. Taper dose estradiol 0.05 mg/24 hr Apply 1 Patch as directed once each week. Physical Exam BP 124/84 Ht 160 cm (5' 3) Wt 71.7 kg (158 lb) BMI 27.99 kg/m? ASSESSMENT/PLAN: Stress incontinence, female (primary encounter diagnosis) No Follow-up on file. Referring Provider: LORENA MAHER [[id number]] Allergies As of Date: 01/09/2018 Noted Allergy Reaction CONTRAST DYE (IODINE) 06/24/2014 11 - Vomiting Comments: Severe Nausea TETRACYCLINE 12/05/2012 4 - Hives Date Reviewed: 01/09/2018 Reviewed by: Marah Harden Companion - Fully Assessed Reason for Visit: Post Op [174] Primary Visit Diagnosis:Stress incontinence, female [N39.3] Other Visit Diagnoses:Midline cystocele [N81.11] Vaginal enterocele [N81.5] Order(s):UA DIP B/O [[id number]] Order #: [id number] BLADDER SCAN [[id number]] Order #: [id number] oxybutynin ER (DITROPAN XL) 10 mg 24 hr tabletTake 1 tablet by mouth once daily.Disp: 30 tabletRfl: 11 Prescriptions as of 01/09/2018 Sig: MUCINEX ALLERGY ORAL Take 1 tablet by mouth as nee* RX ESTROGEN - REMOVE PATCH (O* AFRIN NASAL Use in the nose. IBUPROFEN 600 MG TABLET Take 1 tablet by mouth every * ASPIRIN 81 MG TABLET,DELAYED * Take 81 mg by mouth once arlette* CHOLECALCIFEROL (VITAMIN D3) * Take by mouth once each week. SIMVASTATIN 40 MG TABLET Take 40 mg by mouth daily at * OMEPRAZOLE 40 MG CAPSULE,DARBY* Take 40 mg by mouth once arlette* HYDROCODONE 7.5 MG-ACETAMINOP* Take 1 tablet by mouth every * OXYBUTYNIN CHLORIDE ER 10 MG * Take 1 tablet by mouth once d* CIPROFLOXACIN 250 MG TABLET Take 500 mg by mouth twice da* ALBUTEROL SULFATE INHALATION Inhale as instructed. PREDNISONE ORAL Take 1 tablet by mouth as dir* ESTRADIOL 0.05 MG/24 HR WEEKL* Apply 1 Patch as directed onc* Problem List As Of Date 01/09/2018 Noted Resolved Multiple thyroid nodules [E04.2] INVALID FOR* More... Vitamin D deficiency [E55.9] INVALID FOR* Post-menopause on HRT (hormone replacement ther*INVALID FOR* GERD (gastroesophageal reflux disease) [K21.9] INVALID FOR* Hyperlipidemia [E78.5] INVALID FOR* Bilateral hearing loss [H91.93] INVALID FOR* Elevated blood pressure reading without diagnos*INVALID FOR* Screening for genitourinary condition [Z13.89] INVALID FOR* Prescriptions ordered this encounter Disp Refills Start End OXYBUTYNIN CHLORIDE ER 10 MG TABLET,* 30 t* 11 01/09/2018 Route: ORAL Sig: Take 1 tablet by mouth once daily. Encounter Status:Closed by TALIA VALENTIN MD on 01/10/18 ANES POST Observed: 12/28/2017 Status: COMPLETED Source: [place] 1:57 PM [facility] OTHER [place] REPOSITORY HNO ID: [id number] Author: Tyrel Norwood Service: Anesthesiology Author Type: Physician Type: Anesthesia PostOp Filed: 12/28/2017 2:09 PM Note Text: POST ANESTHESIA EVALUATION NOTE SERVICE DATE: 12/28/2017 SERVICE TIME: 2:09 PM : 1945 Vitals: 12/28/17 0902 12/28/17 1232 Temp: 36.1 ?C (97 ?F) 36.2 ?C (97.2 ?F) 12/28/17 0902 12/28/17 1232 12/28/17 1240 12/28/17 1320 BP: 148/84 141/84 143/69 134/56 12/28/17 1240 12/28/17 1245 12/28/17 1250 12/28/17 1320 Pulse: 67 63 64 66 12/28/17 1240 12/28/17 1245 12/28/17 1250 12/28/17 1320 Resp: 16 16 14 14 12/28/17 1240 12/28/17 1245 12/28/17 1250 12/28/17 1320 SpO2: 100% 100% 100% 99% Validated Vital Signs: Yes POST ANES STATUS: No apparent anesthetic complications. The patient is appropriately hydrated with stable respiratory and cardiovascular status. Patient has safe and adequate airway control. The patient has appropriate pain relief and no significant post operative nausea or vomiting. The patient has achieved baseline mental status. Further assessment by Anesthesia Service: None Other Remarks: SIGNATURE: Tyrel Norwood MD PATIENT NAME: Dinah Cool DATE: December 28, 2017 TIME: 2:09 PM PAGER/CONTACT #: [phone] NURSING PROG Observed: 12/28/2017 Status: COMPLETED Source: [place] 1:24 PM [facility] REPOSITORY HNO ID: [id number] Author: Sherice BradfordRn) FARZAD Moss Service: (none) Author Type: Registered Nurse Type: Nursing Progress Note Filed: 12/28/2017 1:27 PM Note Text: Patient incontinent of urin large amount clear yellow. Also voided 125cc. notified BRIEF OP NOT Observed: 12/28/2017 Status: COMPLETED Source: [place] 12:30 PM [facility] REPOSITORY HNO ID: [id number] Author: Talia Valentin Service: Urology Author Type: Physician Type: Brief Op Note Filed: 12/28/2017 12:31 PM Note Text: UROLOGY SERVICE BRIEF OPERATIVE NOTE LOG ID: [id number] Surgery/Procedure Date: 12/28/2017 Incision/Procedure Start Time: 1056 Incision Close/Procedure End Time: 1220 Patient Age: [age] year old Surgeon(s)/Proceduralist(s) and Production Control Coordinating Clerk(s): Surgeon(s) and Role: * Talia Vigil No Additional Staff Anesthesia: General Preop Diagnosis: Pre-Op Diagnosis Codes: * Cystocele, midline [N81.11] Postop Diagnosis: Same as preoperative diagnosis Procedure: Cystoscopy, Anterior repair, SSLF FLUIDS Intake: see anesth Urine Output: see anesth Estimated Blood Loss: 0 ml Accidental punctures or Lacerations: None Drains: None Cultures: none Findings: none Specimens: None Complications: None SIGNATURE: Talia Valentin MD PATIENT NAME: Dinah Cool DATE: December 28, 2017 TIME: 12:30 PM PAGER/CONTACT #: HISTORY PHYSICAL Observed: 12/28/2017 Status: COMPLETED Source: [place] 10:08 AM [facility] REPOSITORY HNO ID: [id number] Author: Malena Mueller Service: (none) Author Type: Nurse Practitioner Type: HANDP Filed: 12/28/2017 10:40 AM Note Text: HISTORY AND PHYSICAL EXAMINATION Dinah Cool 1945 SERVICE DATE: 12/28/2017 SERVICE TIME: 10:08 AM PRIMARY CARE PHYSICIAN: Lorena Maher DO SURGEON: Surgeon(s) and Role: * Talia Vigil ANESTHESIA: Monitored Anesthesia Care DIAGNOSIS: Cystocele, midline [N81.11] PROCEDURE: Procedure(s): CYSTOSCOPY (N/A) ANTERIOR REPAIR (N/A) SACROSPINOUS LIGAMENT FIXATION (N/A) Subjective CHIEF COMPLAINT: lifting my bladder, have a prolapsed bladder HPI: This is a 72 year old female who presents to surgery center for cystoscopy, anterior repair, ligament fixation. Pt c/o long history of bladder problems due to working on feet and s/p hysterectomy. C/O difficulty initiated stream of urine, completely emptying bladder. C/O burning and irritation with urination, burning feeling in bladder. Positive history of blood in urine, not visible to patient. Treated with Cipro and diflucan one week ago, per pt no bacteria, culture showed trace of infection in office, no change after treatment. PROBLEMS WITH ANESTHESIA: no history of adverse anesthetic event FAMILY PROBLEMS WITH ANESTHESIA: no history of adverse anesthetic event METS: Do moderate work around the house such as vacuuming, sweeping floors, or carrying in groceries (3.50 METs) FUNCTIONAL STATUS: Independent PAST MEDICAL HISTORY Diagnosis Date - Artificial menopause state - Atelectasis Last xray 05/2018, ongoing for years, seen by Dr Esquivel, worked around chemicals - CAD (coronary artery disease) pt denies - Carotid artery disease (HCC) US 05/17, Dr Maher follows, no need for surgical intervention at this time - Chronic back pain - Fatty liver - GERD (gastroesophageal reflux disease) - Hyperlipidemia - Macular degeneration - Migraine resolved after ear peircing - Multiple thyroid nodules 12/05/2012 Thyroid ultrasound in 10/2012 showed 2 small nodules in right lobe, 6 mm cyst and 8 mm nodule. Thyroid ultrasound in 06/2013 showed 2 small nodules are seen within the right lobe, both 8 mm. Left lobe and isthmus show no nodules. Thyroid ultrasound in 06/2014 showed 9 mm nodule in right lobe (mixed cystic/solid with hypervascular solid component), and another 8 mm right lobe nodule. Left lobe shows a new hyperechoic solid nodule, 4 mm. Thyroid ultrasound in 06/2015 showed 9 mm nodule and 8 mm nodule in right upper pole. Left lobe shows a 7 mm lower pole nodule (previously 5 mm). - Retinal hemorrhage Left eye; received injections x 3 PAST SURGICAL HISTORY Procedure Laterality Date - CHOLECYSTECTOMY 1997 - COLONOSCOP W/ OR W/O BRSH SPEC 08/15/2013 Colonoscopy - EGD W/O OR W/BRUSH/WASH 08/15/2013 EGD - EXCISION TURBINATE - KNEE LEFT OP SURGERY 2011 - OOPHORECTOMY, PART/TOTAL UNILAT/BILAT b/l - PAST SURGICAL HISTORY OF injections for back pain - PAST SURGICAL HISTORY OF cystoscope - PAST SURGICAL HISTORY OF correction of bilateral nasal turbinates. - PAST SURGICAL HISTORY OF esophageal dilation X2 - VAGINAL HYSTERECTOMY 1993 FAMILY HISTORY Problem Relation Age of Onset - Thyroid Mother - Lipids Mother - Hypertension Mother - Thyroid Maternal Grandmother - thyroid cancer [OTHER] Other cousin sister Social History Substance Use Topics - Smoking status: Former Smoker Types: Cigarettes - Smokeless tobacco: Never Used Comment: Quit 13+ years ago - Alcohol use No Prior to Admission medications as of 12/28/17 1027 Medication Sig Last Dose Taking fexofenadine HCl (MUCINEX ALLERGY ORAL) Take 1 tablet by mouth as needed. Yes estradiol - REMOVE PATCH Yes oxymetazoline HCl (AFRIN NASAL) Use in the nose. Yes aspirin, enteric coated (ASPIRIN, ENTERIC COATED) 81 mg EC tablet Take 81 mg by mouth once daily. 12/14/2017 Yes cholecalciferol, vitamin D3, 50,000 unit tab Take by mouth once each week. Yes simvastatin (ZOCOR) 40 mg tablet Take 40 mg by mouth daily at bedtime. Yes Omeprazole (PRILOSEC) 40 mg capsule Take 40 mg by mouth once daily. 12/28/2017 at 0600 Yes HYDROcodone-Acetaminophen 7.5-325 mg per tablet Take 1 tablet by mouth every 8 hours as needed. 12/27/2017 at 2115 Yes estradiol 0.05 mg/24 hr Apply 1 Patch as directed once each week. Yes ciprofloxacin HCl (CIPRO) 250 mg tablet Take 500 mg by mouth twice daily. TOOK FOR 3 DAYS 12/14- 12/17 FOR UTI SYMTOMS ALBUTEROL SULFATE INHALATION Inhale as instructed. PREDNISONE ORAL Take 1 tablet by mouth as directed. Taper dose ALLERGIES Allergen Reactions - Contrast Dye [Iodin* Vomiting Severe Nausea - Tetracycline Hives COMPLETE REVIEW OF SYSTEMS: GENERAL: No weight loss, malaise or fevers RESPIRATORY: Shortness of breath with stairs and hills not new for pt, history of atelectasis, no albuterol use for > 1 yr, no history of asthma, COPD, SUZIE, followed by [employer] CARDIOVASCULAR: Negative for chest pain, leg swelling, CHF or palpitations GI: No nausea, vomiting, or diarrhea : See HPI MUSCULOSKELETAL: chronic back pain PSYCH: sleep fragmented ENDOCRINE: Negative for cold or heat intolerance, polyuria, polydipsia and goiter, history of thyroid nodules NEURO: Migraine headaches in past resolved with ear peircing. Negative for stroke, seizures or headaches. Denies dizziness or syncope. Objective PHYSICAL EXAM: MENTAL STATUS: alert, oriented to person, place and time HEENT: Normocephalic/atraumatic, contacts in place, pt will remove prior to surgery LUNGS: Lungs clear to auscultation, Good diaphragmatic excursion CARDIAC: Normal S1 and S2; no rubs, murmurs, or gallops, no carotid bruit audible ABDOMEN: Abdomen soft, non-tender, BS normal EXTREMITIES: Extremities normal, no edema Pain Score: 2/10 (12/28/17 0902) 12/28/17901 BP: 148/84 Pulse: 75 Resp: 16 Temp: 36.1 ?C (97 ?F) TempSrc: Temporal Artery SpO2: 96% Weight: 71.7 kg (158 lb) Height: 160 cm (5' 3) Body mass index is 27.99 kg/m?. PLAN Patient will remove contacts, given supplies per ZRN SIGNATURE: Malena Mueller APRN.[employer] PATIENT NAME: Dinah Cool DATE: December 28, 2017 TIME: 10:08 AM PAGER/CONTACT #: ANES PREOP Observed: 12/28/2017 Status: COMPLETED Source: [place] 9:44 AM [facility] OTHER CAMPUS REPOSITORY O ID: [id number] Author: Tyrel Norwood Service: Anesthesiology Author Type: Physician Type: Anesthesia PreOp Filed: 12/28/2017 9:46 AM Note Text: ANESTHESIOLOGY DAY OF SURGERY NOTE SERVICE DATE: 12/28/2017 SERVICE TIME: 9:44 AM : 1945 Procedure(s) (LRB): CYSTOSCOPY (N/A) ANTERIOR REPAIR (N/A) SACROSPINOUS LIGAMENT FIXATION (N/A) Surgeon(s): Talia Valentin Estimated body mass index is 27.99 kg/m? as calculated from the following: Height as of this encounter: 160 cm (5' 3). Weight as of this encounter: 71.7 kg (158 lb). Most recent hematocrit and potassium results: No results found for this basename: HCT,HEMATOCRIT,K,POTASSIUM ANES DOS/PREOP NOTE: Vitals: 12/28/17 0902 BP: 148/84 Pulse: 75 Resp: 16 Temp: 36.1 ?C (97 ?F) TempSrc: Temporal Artery SpO2: 96% Weight: 71.7 kg (158 lb) Height: 160 cm (5' 3) ACTIVE PROBLEM LIST Multiple Thyroid Nodules Vitamin D Deficiency Post-Menopause On Hrt (Hormone Replacement Therapy) Gerd (Gastroesophageal Reflux Disease) Hyperlipidemia Bilateral Hearing Loss Elevated Blood Pressure Reading Without Diagnosis of Hypertension Screening for Genitourinary Condition PAST MEDICAL HISTORY Diagnosis Date - Artificial menopause state - Atelectasis - CAD (coronary artery disease) - Chronic back pain - GERD (gastroesophageal reflux disease) - Hyperlipidemia PAST SURGICAL HISTORY Procedure Laterality Date - CHOLECYSTECTOMY 1997 - COLONOSCOP W/ OR W/O BRSH SPEC 08/15/2013 Colonoscopy - EGD W/O OR W/BRUSH/WASH 08/15/2013 EGD - EXCISION TURBINATE - KNEE LEFT OP SURGERY 2011 - OOPHORECTOMY, PART/TOTAL UNILAT/BILAT b/l - PAST SURGICAL HISTORY OF injections for back pain - PAST SURGICAL HISTORY OF cystoscope - PAST SURGICAL HISTORY OF correction of bilateral nasal turbinates. - PAST SURGICAL HISTORY OF esophageal dilation X2 - VAGINAL HYSTERECTOMY 1993 FAMILY HISTORY Problem Relation Age of Onset - Thyroid Mother - Thyroid Maternal Grandmother - thyroid cancer [Other] [OTHER] Other cousin sister - Lipids Mother - Hypertension Mother Social History: Social History Substance Use Topics - Smoking status: Former Smoker Types: Cigarettes - Smokeless tobacco: Never Used Comment: Quit 13+ years ago - Alcohol use No No current facility-administered medications on file prior to encounter. Current Outpatient Prescriptions on File Prior to Encounter: cholecalciferol, vitamin D3, 50,000 unit tab Take by mouth once each week. simvastatin (ZOCOR) 40 mg tablet Take 40 mg by mouth daily at bedtime. Omeprazole (PRILOSEC) 40 mg capsule Take 40 mg by mouth once daily. HYDROcodone-Acetaminophen 7.5-325 mg per tablet Take 1 tablet by mouth every 8 hours as needed. estradiol 0.05 mg/24 hr Apply 1 Patch as directed once each week. ALBUTEROL SULFATE INHALATION Inhale as instructed. amoxicillin (AMOXIL) 875 mg tablet Take 875 mg by mouth twice daily. PREDNISONE ORAL Take 1 tablet by mouth as directed. Taper dose Current Facility-Administered Medications: lactated ringers infusion 5-30 mL/hr INTRAVENOUS CONTINUOUS Zo Jain Last Rate: 30 mL/hr at 12/28/17914 30 mL/hr at 12/28/17914 Allergies: ALLERGIES Allergen Reactions - Contrast Dye [Iodin* Vomiting Severe Nausea - Tetracycline Hives DOS EXAM: Adequate NPO status: Yes Anesthetic risks, benefits, alternatives, personnel and consent discussed: Yes Patient agrees to proceed: Yes Previous Anesthesia: No history of adverse event. Airway Assessment: MP 2; Neck ROM: Full ROM without neurologic symptoms; Airway Evaluation: No significant abnormalities Symptoms of Sleep Apnea: None Dentition: Poor dentition Additional Physical Exam: Lungs: Patient health status unchanged since recent history and physical. See history and physical for exam findings. Cardiac: Patient health status unchanged since recent history and physical. See history and physical for exam findings. Additional Pertinent Findings: N/A Blood Products: Not anticipated for this procedure. Anesthetic Plan: MAC with Sedation Pain Management Plan: Parenteral or Oral ASA Class: 2 Other Medical Problems: None Chronic Beta Kim medication administered within 24 hours: N/A I have interviewed and examined the patient. I have reviewed the medical record and/or the pre-anesthesia evaluation, pertinent labs, and test results. Significant changes in the patient's condition since the History and Physical, not otherwise documented in primary service progress notes: No This contains updated information obtained within 48 hours of Surgery/Procedure. SIGNATURE: Tyrel Norwood MD PATIENT NAME: Dinah Cool DATE: December 28, 2017 TIME: 9:44 AM CSN: [id number] PT ED Observed: 12/28/2017 Status: COMPLETED Source: [place] 8:42 AM CLINIC OTHER CAMPUS REPOSITORY [facility] ID: [id number] Author: Delicia Curiel RN Service: (none) Author Type: Registered Nurse Type: Patient Education Filed: 12/28/2017 8:43 AM Note Text: ONGOING PATIENT EDUCATION TOPIC Reinforced: Patient Name: Dinah Cool Patient [facility]: [facility] Readiness To Learn Motivation To Learn: Eager Instruction Provided To: Patient Learning Response Patient/Family Response: Verbalizes understanding of: PRE-OPERATIVE INSTRUCTIONS-Correct action to take to follow pre-operative instructions Method of Instruction: Individual instruction Follow-Up Plan: Complete - No need for follow-up Electronically signed by: Delicia Curiel RN OPERATIVE NO Observed: 12/28/2017 Status: COMPLETED Source: [place] 12:00 AM CLINIC OTHER CAMPUS REPOSITORY [facility] ID: [id number] Author: Talia Valentin Service: Urology Author Type: Physician Type: Operative Report Filed: 01/01/2018 9:21 PM Note Text: [facility] - Operative Report SURGEON: Talia Valentin MD PATIENT NAME: DINAH COOL CSN: [id number] DATE OF SURGERY: 12/28/2017 DATE OF : 1945 SEX/AGE: F/72 PATIENT TYPE: A HOSP SVC: UROL LOCATION: [facility] DATE OF SURGERY: 12/28/2017 SURGEON: Talia Valentin MD PREOPERATIVE DIAGNOSES: Cystocele, vaginal prolapse, urinary frequency and urgency. POSTOPERATIVE DIAGNOSIS: Cystocele, vaginal prolapse, urinary frequency and urgency. PROCEDURE: Cystoscopy, anterior repair, and sacrospinous ligament fixation. ANESTHESIA: General. EBL: Minimal. FLUIDS: Crystalloid. HISTORY: The patient presents with a symptomatic cystocele and vaginal prolapse. Risks, benefits, and alternatives were discussed including infection, bleeding, recurrence, new urinary incontinence, persistent pain or discomfort, injury to bowel and bladder. The patient's questions were answered and she was comfortable with proceeding. PROCEDURE IN DETAIL: The patient was taken to the operating room, placed in dorsal lithotomy position, and prepped and draped in normal sterile fashion. Then, 1% lidocaine with epinephrine was injected in the anterior vaginal wall. Anterior vaginal incision was made and lateral dissection was performed. Pubocervical fascia was identified and significant scarring was released in the midline. Once this was released, the sacral spinous ligament and ischial spine could be palpated on the patient's right side. Using the Capio, 2 sutures of CV2 Sanders-Alexander were used with the Capio to place the sutures 2 cm medial to the ischial spine. Anterior repair was then performed by reapproximating pubocervical fascia with interrupted 2-0 PDS. Cystoscopy was performed. There was no evidence of tumor, calculus, mucosa abnormality, or bladder injury, and both ureteral orifices were identified easily effluxing methylene blue stained urine. Her Capio sutures were brought through at the apex level. The anterior wall closure was started with 2-0 Vicryl. Capio sutures were then tied and the remainder of the closure was performed. Her Leon catheter removed. She was awakened and returned to recovery in good condition. I performed the entire procedure with assistance. Talia Valentin MD Urology RAB:modl /[id number] PROGRESS Observed: 11/30/2017 Status: COMPLETED Source: [place] 9:41 AM [facility] REPOSITORY O ID: [id number] Author: Talia Valentin Service: (none) Author Type: Physician Type: Progress Notes Filed: 11/30/2017 9:44 AM Note Text: ESTABLISHED PATIENT VISIT HPI Dinah Cool is a 72 year old female who presents To review surgery She has had a previous MMK and sling. She feels as if she has difficulty emptying. We reviewed her examination demonstrating vaginal prolapse. We discussed the risks benefits and alternatives to surgery. We reviewed that this time we will not do anything for her bladder neck and that we'll proceed with cystoscopy and anterior repair and sacrospinous ligament fixation. We discussed infection bleeding dyspareunia possible need for repeat procedures. Her questions were answered. Patient here to discuss surgery. This office visit is designed to provide the risks benefits and alternatives to treatment. Her opportunity to ask questions and understand the goals limitations and possible outcomes of surgery. We have reviewed the most common postoperative complications that we encounter with procedures and they include the following but are not limited to: 1. Infection, wound infection or urinary tract infection 2. Bleeding and the ossible risk of transfusion, the risk of transfusion is very low however he will have some spotting or vaginal bleeding for some time. This may last up to 2 weeks. 3. It is common after surgery to have difficulties urinating. It is possible that she may go home with a catheter and require an office visit for removing the catheter. Our goal is that she does not experience any urinary incontinence after surgery however it is possible that she may have persistent urinary leakage. It is possible that she may require a second surgical procedure to correct urinary incontinence, urinary retention or incomplete bladder emptying. It is not uncommon for patients experience overactive bladder symptoms, urinary frequency urgency, often this will resolve with time. For patients that previously have experienced urinary frequency and urgency these symptoms may persist after surgery. 4. We always worry about injury to other organs including bowel, bladder and blood vessels. We frequently look in the bladder, cystoscopy, to ensure that there is no bladder injury. 5. There is always a possibility for repeat surgery to correct any problems that have developed. 6. We are always worried about postoperative blood clots and encourage walking after surgery. 7. After surgery walking, climbing stairs are driving are allowed when you are comfortable, no heavy lifting greater than 20 pounds for 4-6 weeks. You may shower immediately after surgery. No tub baths for 2 weeks after surgery. Please refrain from anything in the vagina for 4-6 weeks or until your sutures have dissolved. 8. Once you have healed intercourse should not be uncomfortable if you're noticing any pain or discomfort please let us know. REVIEW OF SYSTEMS GENERAL: No weight loss GENITOURINARY: See HPI CONSTITUTIONALl: No recent fever or weight loss ALLERGIES Allergen Reactions - Contrast Dye [Iodin* Vomiting Severe Nausea - Tetracycline Hives HISTORIES PAST MEDICAL HISTORY Diagnosis Date - Artificial menopause state - GERD (gastroesophageal reflux disease) - Hyperlipidemia FAMILY HISTORY Problem Relation Age of Onset - Thyroid Mother - Thyroid Maternal Grandmother - thyroid cancer [Other] [OTHER] Other cousin sister - Lipids Mother - Hypertension Mother Social History Substance Use Topics - Smoking status: Former Smoker Types: Cigarettes - Smokeless tobacco: Never Used Comment: Quit 13+ years ago - Alcohol use No MEDICATIONS: cholecalciferol, vitamin D3, 50,000 unit tab Take by mouth once each week. simvastatin (ZOCOR) 40 mg tablet Take 40 mg by mouth daily at bedtime. Omeprazole (PRILOSEC) 40 mg capsule Take 40 mg by mouth once daily. HYDROcodone-Acetaminophen 7.5-325 mg per tablet Take 1 tablet by mouth every 8 hours as needed. estradiol 0.05 mg/24 hr Apply 1 Patch as directed once each week. ALBUTEROL SULFATE INHALATION Inhale as instructed. amoxicillin (AMOXIL) 875 mg tablet Take 875 mg by mouth twice daily. PREDNISONE ORAL Take 1 tablet by mouth as directed. Taper dose Physical Exam There were no vitals taken for this visit. ASSESSMENT/PLAN: Screening for genitourinary condition (primary encounter diagnosis) Midline cystocele Feeling of incomplete bladder emptying Vaginal vault prolapse No Follow-up on file. JUVENTINO Observed: 11/30/2017 Status: COMPLETED Source: [place] 9:15 AM [facility]IN[facility] MAIN CAMPUS REPOSITORY Office Visit (UROLMD) DINAH COOL ([id number]) 1945 F Date Time Provider Department 11/30/17 9:15 AM TALIA VALENTIN UROYAMILE During your visit today, we recorded the following information about you: Billraj Kan 11/30/2017 9:23 AM Signed Patient presents with: Establish Care: sign a consent Talia Valentin MD 11/30/2017 9:44 AM Signed ESTABLISHED PATIENT VISIT HPI Dinah Cool is a 72 year old female who presents To review surgery She has had a previous MMK and sling. She feels as if she has difficulty emptying. We reviewed her examination demonstrating vaginal prolapse. We discussed the risks benefits and alternatives to surgery. We reviewed that this time we will not do anything for her bladder neck and that we'll proceed with cystoscopy and anterior repair and sacrospinous ligament fixation. We discussed infection bleeding dyspareunia possible need for repeat procedures. Her questions were answered. Patient here to discuss surgery. This office visit is designed to provide the risks benefits and alternatives to treatment. Her opportunity to ask questions and understand the goals limitations and possible outcomes of surgery. We have reviewed the most common postoperative complications that we encounter with procedures and they include the following but are not limited to: 1. Infection, wound infection or urinary tract infection 2. Bleeding and the ossible risk of transfusion, the risk of transfusion is very low however he will have some spotting or vaginal bleeding for some time. This may last up to 2 weeks. 3. It is common after surgery to have difficulties urinating. It is possible that she may go home with a catheter and require an office visit for removing the catheter. Our goal is that she does not experience any urinary incontinence after surgery however it is possible that she may have persistent urinary leakage. It is possible that she may require a second surgical procedure to correct urinary incontinence, urinary retention or incomplete bladder emptying. It is not uncommon for patients experience overactive bladder symptoms, urinary frequency urgency, often this will resolve with time. For patients that previously have experienced urinary frequency and urgency these symptoms may persist after surgery. 4. We always worry about injury to other organs including bowel, bladder and blood vessels. We frequently look in the bladder, cystoscopy, to ensure that there is no bladder injury. 5. There is always a possibility for repeat surgery to correct any problems that have developed. 6. We are always worried about postoperative blood clots and encourage walking after surgery. 7. After surgery walking, climbing stairs are driving are allowed when you are comfortable, no heavy lifting greater than 20 pounds for 4- 6 weeks. You may shower immediately after surgery. No tub baths for 2 weeks after surgery. Please refrain from anything in the vagina for 4-6 weeks or until your sutures have dissolved. 8. Once you have healed intercourse should not be uncomfortable if you're noticing any pain or discomfort please let us know. REVIEW OF SYSTEMS GENERAL: No weight loss GENITOURINARY: See HPI CONSTITUTIONALl: No recent fever or weight loss ALLERGIES Allergen Reactions - Contrast Dye [Iodin* Vomiting Severe Nausea - Tetracycline Hives HISTORIES PAST MEDICAL HISTORY Diagnosis Date - Artificial menopause state - GERD (gastroesophageal reflux disease) - Hyperlipidemia FAMILY HISTORY Problem Relation Age of Onset - Thyroid Mother - Thyroid Maternal Grandmother - thyroid cancer [Other] [OTHER] Other cousin sister - Lipids Mother - Hypertension Mother Social History Substance Use Topics - Smoking status: Former Smoker Types: Cigarettes - Smokeless tobacco: Never Used Comment: Quit 13+ years ago - Alcohol use No MEDICATIONS: cholecalciferol, vitamin D3, 50,000 unit tab Take by mouth once each week. simvastatin (ZOCOR) 40 mg tablet Take 40 mg by mouth daily at bedtime. Omeprazole (PRILOSEC) 40 mg capsule Take 40 mg by mouth once daily. HYDROcodone-Acetaminophen 7.5-325 mg per tablet Take 1 tablet by mouth every 8 hours as needed. estradiol 0.05 mg/24 hr Apply 1 Patch as directed once each week. ALBUTEROL SULFATE INHALATION Inhale as instructed. amoxicillin (AMOXIL) 875 mg tablet Take 875 mg by mouth twice daily. PREDNISONE ORAL Take 1 tablet by mouth as directed. Taper dose Physical Exam There were no vitals taken for this visit. ASSESSMENT/PLAN: Screening for genitourinary condition (primary encounter diagnosis) Midline cystocele Feeling of incomplete bladder emptying Vaginal vault prolapse No Follow-up on file. Referring Provider: LORENA MAHER [[id number]] Allergies As of Date: 11/30/2017 Noted Allergy Reaction CONTRAST DYE (IODINE) 06/24/2014 11 - Vomiting Comments: Severe Nausea TETRACYCLINE 12/05/2012 4 - Hives Date Reviewed: 11/30/2017 Reviewed by: Talia Valentin - Fully Assessed Reason for Visit: Establish Care [42] Cmt: sign a consent Primary Visit Diagnosis:Screening for genitourinary condition [Z13.89] Other Visit Diagnoses:Midline cystocele [N81.11] Feeling of incomplete bladder emptying [R39.14] Vaginal vault prolapse [N81.9] Order(s):UA DIP, URINE (POC) [[id number]] Order #: [id number] Prescriptions as of 11/30/2017 Sig: CHOLECALCIFEROL (VITAMIN D3) * Take by mouth once each week. SIMVASTATIN 40 MG TABLET Take 40 mg by mouth daily at * OMEPRAZOLE 40 MG CAPSULE,DARBY* Take 40 mg by mouth once arlette* HYDROCODONE 7.5 MG-ACETAMINOP* Take 1 tablet by mouth every * ESTRADIOL 0.05 MG/24 HR WEEKL* Apply 1 Patch as directed onc* ALBUTEROL SULFATE INHALATION Inhale as instructed. AMOXICILLIN 875 MG TABLET Take 875 mg by mouth twice da* PREDNISONE ORAL Take 1 tablet by mouth as dir* Problem List As Of Date 11/30/2017 Noted Resolved Multiple thyroid nodules [E04.2] INVALID FOR* More... Vitamin D deficiency [E55.9] INVALID FOR* Post-menopause on HRT (hormone replacement ther*INVALID FOR* GERD (gastroesophageal reflux disease) [K21.9] INVALID FOR* Hyperlipidemia [E78.5] INVALID FOR* Bilateral hearing loss [H91.93] INVALID FOR* Elevated blood pressure reading without diagnos*INVALID FOR* Screening for genitourinary condition [Z13.89] INVALID FOR* Visit Notes: >> Jennifer Omer TueNovember 30, 2017 9:23 AM Status: Signed Patient presents with: Establish Care: sign a consent Encounter Status:Closed by TLAIA VALENTIN MD on 11/30/17 HOSP Observed: 11/08/2017 Status: COMPLETED Source: [place] 12:00 AM CLINIC OTHER CAMPUS REPOSITORY Patient:Dinah Cool MRN: <[id number]> Height:5' 3(1.6 m) Weight:No patient weight recorded within the last 30 days. Outpatient Medications as of 12/28/17: fexofenadine HCl (MUCINEX ALLERGY ORAL) ciprofloxacin HCl (CIPRO) 250 mg tablet estradiol - REMOVE PATCH oxymetazoline HCl (AFRIN NASAL) aspirin, enteric coated (ASPIRIN, ENTERIC COATED) 81 mg EC tablet cholecalciferol, vitamin D3, 50,000 unit tab ALBUTEROL SULFATE INHALATION PREDNISONE ORAL simvastatin (ZOCOR) 40 mg tablet Omeprazole (PRILOSEC) 40 mg capsule HYDROcodone-Acetaminophen 7.5-325 mg per tablet estradiol 0.05 mg/24 hr Admission/Clinic Administered Medications as of 12/28/17: lactated ringers infusion lactated ringers infusion fentaNYL 50 mcg/mL 25 mcg injection (SUBLIMAZE) HYDROmorphone 0.5 mg injection (DILAUDID) ondansetron (PF) 4 mg injection (ZOFRAN) oxyCODONE IR 5 mg tab(s) (ROXICODONE) Problem List: Multiple thyroid nodules [E04.2] Vitamin D deficiency [E55.9] Post-menopause on HRT (hormone replacement therapy) [Z79.890] GERD (gastroesophageal reflux disease) [K21.9] Hyperlipidemia [E78.5] Bilateral hearing loss [H91.93] Elevated blood pressure reading without diagnosis of hypertension [R03.0] Screening for genitourinary condition [Z13.89] Allergies: Contrast Dye [Iodine] Tetracycline Date Verified: 12/28/17 Lab Values No results within the last 30 days for the following basenames: K,HCT Progress Notes (UR[facility]): Jennifer Omer 11/30/2017 9:23 AM Signed Patient presents with: Establish Care: sign a consent Talia Valentin MD 11/30/2017 9:44 AM Signed ESTABLISHED PATIENT VISIT HPI Dinah Cool is a 72 year old female who presents To review surgery She has had a previous MMK and sling. She feels as if she has difficulty emptying. We reviewed her examination demonstrating vaginal prolapse. We discussed the risks benefits and alternatives to surgery. We reviewed that this time we will not do anything for her bladder neck and that we'll proceed with cystoscopy and anterior repair and sacrospinous ligament fixation. We discussed infection bleeding dyspareunia possible need for repeat procedures. Her questions were answered. Patient here to discuss surgery. This office visit is designed to provide the risks benefits and alternatives to treatment. Her opportunity to ask questions and understand the goals limitations and possible outcomes of surgery. We have reviewed the most common postoperative complications that we encounter with procedures and they include the following but are not limited to: 1. Infection, wound infection or urinary tract infection 2. Bleeding and the ossible risk of transfusion, the risk of transfusion is very low however he will have some spotting or vaginal bleeding for some time. This may last up to 2 weeks. 3. It is common after surgery to have difficulties urinating. It is possible that she may go home with a catheter and require an office visit for removing the catheter. Our goal is that she does not experience any urinary incontinence after surgery however it is possible that she may have persistent urinary leakage. It is possible that she may require a second surgical procedure to correct urinary incontinence, urinary retention or incomplete bladder emptying. It is not uncommon for patients experience overactive bladder symptoms, urinary frequency urgency, often this will resolve with time. For patients that previously have experienced urinary frequency and urgency these symptoms may persist after surgery. 4. We always worry about injury to other organs including bowel, bladder and blood vessels. We frequently look in the bladder, cystoscopy, to ensure that there is no bladder injury. 5. There is always a possibility for repeat surgery to correct any problems that have developed. 6. We are always worried about postoperative blood clots and encourage walking after surgery. 7. After surgery walking, climbing stairs are driving are allowed when you are comfortable, no heavy lifting greater than 20 pounds for 4- 6 weeks. You may shower immediately after surgery. No tub baths for 2 weeks after surgery. Please refrain from anything in the vagina for 4-6 weeks or until your sutures have dissolved. 8. Once you have healed intercourse should not be uncomfortable if you're noticing any pain or discomfort please let us know. REVIEW OF SYSTEMS GENERAL: No weight loss GENITOURINARY: See HPI CONSTITUTIONALl: No recent fever or weight loss ALLERGIES Allergen Reactions - Contrast Dye [Iodin* Vomiting Severe Nausea - Tetracycline Hives HISTORIES PAST MEDICAL HISTORY Diagnosis Date - Artificial menopause state - GERD (gastroesophageal reflux disease) - Hyperlipidemia FAMILY HISTORY Problem Relation Age of Onset - Thyroid Mother - Thyroid Maternal Grandmother - thyroid cancer [Other] [OTHER] Other cousin sister - Lipids Mother - Hypertension Mother Social History Substance Use Topics - Smoking status: Former Smoker Types: Cigarettes - Smokeless tobacco: Never Used Comment: Quit 13+ years ago - Alcohol use No MEDICATIONS: cholecalciferol, vitamin D3, 50,000 unit tab Take by mouth once each week. simvastatin (ZOCOR) 40 mg tablet Take 40 mg by mouth daily at bedtime. Omeprazole (PRILOSEC) 40 mg capsule Take 40 mg by mouth once daily. HYDROcodone-Acetaminophen 7.5-325 mg per tablet Take 1 tablet by mouth every 8 hours as needed. estradiol 0.05 mg/24 hr Apply 1 Patch as directed once each week. ALBUTEROL SULFATE INHALATION Inhale as instructed. amoxicillin (AMOXIL) 875 mg tablet Take 875 mg by mouth twice daily. PREDNISONE ORAL Take 1 tablet by mouth as directed. Taper dose Physical Exam There were no vitals taken for this visit. ASSESSMENT/PLAN: Screening for genitourinary condition (primary encounter diagnosis) Midline cystocele Feeling of incomplete bladder emptying Vaginal vault prolapse No Follow-up on file. PROGRESS Observed: 11/02/2017 Status: COMPLETED Source: [place] 9:22 AM [facility] REPOSITORY [facility] ID: [id number] Author: Talia Valentin Service: (none) Author Type: Physician Type: Progress Notes Filed: 11/02/2017 9:32 AM Note Text: ESTABLISHED PATIENT VISIT HPI Dinah Cool is a 72 year old female who presents with incomplete emptying, elevated pvr and incomplete emptying. Previous rectus sling and MMK. Discussed options for prolapse and enterocele. We have reviewed her urodynamics showing incomplete bladder emptying with elevated tissue pressures during voiding phase. She has had 2 previous bladder neck procedures including a sling and an MMK. I discussed with her that her voiding may or may not improve with correction of her prolapse. We discussed a trial of a pessary versus surgery. She is more interested in surgical correction. She has had multiple abdominal procedures and we decided a preference for a vaginal approach. Her questions were answered. We reviewed holding off on any treatment for her incomplete voiding until after her prolapse is corrected with the hope the correcting her prolapse will improve her voiding. No results found for: UCOLAP, UGLUC, UBILI, UKET, SPGR, UHB, UPH, UPROT, UROBILINOGEN, NITRITES, LEUKEST REVIEW OF SYSTEMS GENERAL:No weight loss, malaise or fevers, No weight loss, malaise or fevers., SEE HPI GENITOURINARY: See HPI CONSTITUTIONALl: No recent fever or weight loss ALLERGIES Allergen Reactions - Contrast Dye [Iodin* Vomiting Severe Nausea - Tetracycline Hives HISTORIES PAST MEDICAL HISTORY Diagnosis Date - Artificial menopause state - GERD (gastroesophageal reflux disease) - Hyperlipidemia FAMILY HISTORY Problem Relation Age of Onset - Thyroid Mother - Thyroid Maternal Grandmother - thyroid cancer [Other] [OTHER] Other cousin sister - Lipids Mother - Hypertension Mother Social History Substance Use Topics - Smoking status: Former Smoker Types: Cigarettes - Smokeless tobacco: Never Used Comment: Quit 13+ years ago - Alcohol use No MEDICATIONS: cholecalciferol, vitamin D3, 50,000 unit tab Take by mouth once each week. simvastatin (ZOCOR) 40 mg tablet Take 40 mg by mouth daily at bedtime. Omeprazole (PRILOSEC) 40 mg capsule Take 40 mg by mouth once daily. HYDROcodone-Acetaminophen 7.5-325 mg per tablet Take 1 tablet by mouth every 8 hours as needed. estradiol 0.05 mg/24 hr Apply 1 Patch as directed once each week. ALBUTEROL SULFATE INHALATION Inhale as instructed. amoxicillin (AMOXIL) 875 mg tablet Take 875 mg by mouth twice daily. PREDNISONE ORAL Take 1 tablet by mouth as directed. Taper dose Physical Exam Ht 160 cm (5' 3) Wt 69.9 kg (154 lb) BMI 27.28 kg/m2 ASSESSMENT/PLAN: Screening for genitourinary condition (primary encounter diagnosis) Stress incontinence Retention of urine Vaginal vault prolapse Return for Sarah to call to schedule surgery. . We'll plan cystoscopy sacrospinous ligament fixation possible anterior repair. JUVENTINO Observed: 11/02/2017 Status: COMPLETED Source: [place] 9:00 AM [facility] REPOSITORY Office Visit (UROLMD) COOL,DINAH A ([id number]) 1945 F Date Time Provider Department 11/02/17 9:00 AM TALIA VALENTIN During your visit today, we recorded the following information about you: Weight Height 69.9 kg 1.6 m Yancy Perez Ma 11/02/2017 9:14 AM Signed Patient presents with: Established Patient: Results/UDS Talia Valentin MD 11/02/2017 9:32 AM Signed ESTABLISHED PATIENT VISIT HPI Dinah Cool is a 72 year old female who presents with incomplete emptying, elevated pvr and incomplete emptying. Previous rectus sling and MMK. Discussed options for prolapse and enterocele. We have reviewed her urodynamics showing incomplete bladder emptying with elevated tissue pressures during voiding phase. She has had 2 previous bladder neck procedures including a sling and an MMK. I discussed with her that her voiding may or may not improve with correction of her prolapse. We discussed a trial of a pessary versus surgery. She is more interested in surgical correction. She has had multiple abdominal procedures and we decided a preference for a vaginal approach. Her questions were answered. We reviewed holding off on any treatment for her incomplete voiding until after her prolapse is corrected with the hope the correcting her prolapse will improve her voiding. No results found for: UCOLAP, UGLUC, UBILI, UKET, SPGR, UHB, UPH, UPROT, UROBILINOGEN, NITRITES, LEUKEST REVIEW OF SYSTEMS GENERAL:No weight loss, malaise or fevers, No weight loss, malaise or fevers., SEE HPI GENITOURINARY: See HPI CONSTITUTIONALl: No recent fever or weight loss ALLERGIES Allergen Reactions - Contrast Dye [Iodin* Vomiting Severe Nausea - Tetracycline Hives HISTORIES PAST MEDICAL HISTORY Diagnosis Date - Artificial menopause state - GERD (gastroesophageal reflux disease) - Hyperlipidemia FAMILY HISTORY Problem Relation Age of Onset - Thyroid Mother - Thyroid Maternal Grandmother - thyroid cancer [Other] [OTHER] Other cousin sister - Lipids Mother - Hypertension Mother Social History Substance Use Topics - Smoking status: Former Smoker Types: Cigarettes - Smokeless tobacco: Never Used Comment: Quit 13+ years ago - Alcohol use No MEDICATIONS: cholecalciferol, vitamin D3, 50,000 unit tab Take by mouth once each week. simvastatin (ZOCOR) 40 mg tablet Take 40 mg by mouth daily at bedtime. Omeprazole (PRILOSEC) 40 mg capsule Take 40 mg by mouth once daily. HYDROcodone-Acetaminophen 7.5-325 mg per tablet Take 1 tablet by mouth every 8 hours as needed. estradiol 0.05 mg/24 hr Apply 1 Patch as directed once each week. ALBUTEROL SULFATE INHALATION Inhale as instructed. amoxicillin (AMOXIL) 875 mg tablet Take 875 mg by mouth twice daily. PREDNISONE ORAL Take 1 tablet by mouth as directed. Taper dose Physical Exam Ht 160 cm (5' 3ANDquot;) Wt 69.9 kg (154 lb) BMI 27.28 kg/m2 ASSESSMENT/PLAN: Screening for genitourinary condition (primary encounter diagnosis) Stress incontinence Retention of urine Vaginal vault prolapse Return for Sarah to call to schedule surgery. . We'll plan cystoscopy sacrospinous ligament fixation possible anterior repair. Referring Provider: TALIA VALENTIN [[id number]] Allergies As of Date: 11/02/2017 Noted Allergy Reaction CONTRAST DYE (IODINE) 06/24/2014 11 - Vomiting Comments: Severe Nausea TETRACYCLINE 12/05/2012 4 - Hives Date Reviewed: 11/02/2017 Reviewed by: Talia Valentin - Fully Assessed Reason for Visit: Established Patient [175] Cmt: Results/UDS Primary Visit Diagnosis:Screening for genitourinary condition [Z13.89] Other Visit Diagnoses:Stress incontinence [N39.3] Retention of urine [R33.9] Vaginal vault prolapse [N81.9] Order(s):UA DIP, URINE (POC) [[id number]] Order #: [id number] Prescriptions as of 11/02/2017 Sig: CHOLECALCIFEROL (VITAMIN D3) * Take by mouth once each week. SIMVASTATIN 40 MG TABLET Take 40 mg by mouth daily at * OMEPRAZOLE 40 MG CAPSULE,DARBY* Take 40 mg by mouth once arlette* HYDROCODONE 7.5 MG-ACETAMINOP* Take 1 tablet by mouth every * ESTRADIOL 0.05 MG/24 HR WEEKL* Apply 1 Patch as directed onc* ALBUTEROL SULFATE INHALATION Inhale as instructed. AMOXICILLIN 875 MG TABLET Take 875 mg by mouth twice da* PREDNISONE ORAL Take 1 tablet by mouth as dir* Problem List As Of Date 11/02/2017 Noted Resolved Multiple thyroid nodules [E04.2] INVALID FOR* More... Vitamin D deficiency [E55.9] INVALID FOR* Post-menopause on HRT (hormone replacement ther*INVALID FOR* GERD (gastroesophageal reflux disease) [K21.9] INVALID FOR* Hyperlipidemia [E78.5] INVALID FOR* Bilateral hearing loss [H91.93] INVALID FOR* Elevated blood pressure reading without diagnos*INVALID FOR* Screening for genitourinary condition [Z13.89] INVALID FOR* Visit Notes: >> Yancy Perez Ma TueNov 02, 2017 9:14 AM Status: Signed Patient presents with: Established Patient: Results/UDS Disposition: Return for Sarah to call to schedule surgery. . Follow-up and Disposition History Recorded Letter Text Encounter Status:Closed by TALIA VALENTIN MD on 11/02/17 ALLERGIES ALLERGIES DATE TYPE / CODE NAME / CODE REACTION SEVERITY SOURCE 05/12/2018 DRUG CODEINE UNKNOWN [facility] INGREDI/419 [place] 140887(SNOM Repository ED CT) 05/12/2018 Drug SHELLFISH Vomiting [facility] Class/05678 CONTAINING PRODUCTS [place] 1003(SNOMED Repository CT) 07/14/2017 Drug Iodinated Contrast- Hives Unknown [place] Allergy/416 Oral and IV Community 568985(SNOM Dye/Y502110496([facility] ED CT) RM) Repository 07/14/2017 Drug tetracycline/R36080 Hives Unknown [place] Allergy/416 2738(RXNORM) Community 031352([facility] ED CT) Repository 06/24/2014 DRUG IODINE Vomiting [facility] INGREDI/419 [place] 151479(SNOM Repository ED CT) 12/05/2012 DRUG TETRACYCLINE HIVES [facility] INGREDI/419 [place] 230690(SNOM Repository ED CT) NG/65179596 IODINE [facility] 6(SNOMED [facility] CT) Repository NG/13124778 TETRACYCLINE [facility] 6(SNOMED [facility]) Repository Drug/165415 tetracycline [place] 003(SNOMED [facility] System Repository Drug/974040 contrast media short of Severe [place] 003(SNOMED (iodine-based) breath,rash [facility]) System Repository ENCOUNTERS ENCOUNTERS ADMIT/DISCHARGE ACCOUNT NUMBER ADMITTING ENCOUNTER LOCATION SOURCE CLASS 08/24/2018 [id number] Ambulatory [place] [facility] ding:HPRAD Repository 08/24/2018 [id number] Ambulatory [address] [facility] Repository 08/18/2018 [id number] Ambulatory Building:[facility] Practices Repository 08/17/2018 [id number] Ambulatory [facility] ding:HPRAD Repository 07/19/2018/07/19/20 [id number] Ambulatory [address] Repository 07/13/2018 [id number] Ambulatory [address] [place] [address] Repository 06/29/2018 [id number] Ambulatory [facility] Repository 06/15/2018 [id number] Ambulatory [address] [place] [address] Repository 05/12/2018/05/22/20 [id number] [place], Inpatient [address] Repository 04/20/2018 [id number] Ambulatory [address] [place] [address] Repository 03/13/2018 [id number] Ambulatory [facility] ding:[facility] Repository 02/23/2018 [id number] Ambulatory [address] [place] [address] Repository 01/09/2018/01/10/20 [id number] Ambulatory [address] Repository 01/09/2018/01/10/20 [id number] Ambulatory [address] MEDICAL Repository CENTERBuildi ng:URGR 12/28/2017/12/29/[id number] Repository 12/28/2017/12/29/[id number] MEDICAL Repository CENTERBuildi ng:ASCRoom: POOLBed: 08 12/23/2017 [id number] Ambulatory [address] [place] [address] Repository 11/30/2017/12/01/19 [id number] Ambulatory [address] Repository 11/17/2017/11/18/19 [id number] [place], Ambulatory [address] ding:.[facility] Repository 11/02/2017/11/03/19 [id number] Ambulatory [address] Repository PAYERS PAYERS ENCOUNTER GUARANTOR PAYER SUBSCRIBER SOURCE 08/24/2018 Dinah A Primary Dinah A [place] [id number] Cr Insurance:MEDICARE BrowningDOB: Community [address] PART A BPolicy Number: [id number] [id number] Repository [address]Und: (419) Date:2018-08-24 [phone] (HP) 08/24/2018 Secondary [facility] [place] Insurance:AARPPolicy BrowningDOB: Community Number: [id number] Hospital [id number] Repository Date:5496-09-41[address], [place] [address]BE: 08/24/2018 Tertiary NOT GIVENUNK [place] Insurance:SELF PAY [facility] Number: Effective Repository Date:2018-08-24 08/24/2018 [facility] BROWNINGDOB: Insurance:MedicarePoli BROWNINGDOB: Hospitals cy Number: [id number] Repository [facility] [id number] [address], Date:Plan Name:[address] [address]L[place]: [place] [address]Lxp: (HP) (HP) 08/24/2018 [facility] Insurance:AARP BROWNINGDOB: [facility] [id number] Repository Number: [facility] [id number] [address] [place] [address], Date:Plan Name:Health [place] [address]Bzz: (HP) 08/18/2018 [facility] BrowningDOB: Insurance:MedicarePoli BrowningDOB: Repository cy Number: [id number] [address] AA11[address]av[address] Date:8518-69-06Iiux [place], [place] [address]You: (419) Name:[facility] [address] [address]Hns: (HP) [address]Ivtgrzrb, [place] [phone] (HP) [address]UB: 08/18/2018 Secondary [facility] Insurance:AARP/UHCPoli BrowningDOB: Repository cy Number: [id number] Date:9289-94-48Mfmk [place], [place] Name:[facility] [address] [address]Rbt: (885) 1539[address]Xyrcyri, [place] [phone] () [id number]: 08/17/2018 Dinah A Primary Dinah A [place] [id number] Insurance:MEDICARE BrowningDOB: Community [facility] [address] PART A BPolicy Number: [id number] [id number] Repository [address]Pta: (419) Date:2018-08-17 [phone] (HP) 08/17/2018 Secondary [facility] [place] Insurance:AARPPolicy BrowningDOB: Community Number: [id number] Hospital [id number] Repository Date:6547-94-94[address], [place] [address]HL: 08/17/2018 Tertiary NOT GIVENUNK [place] Insurance:SELF PAY Community [facility] Number: Effective Repository Date:2018-08-17 07/13/2018 [facility] BROWNINGDOB: Insurance:MedicarePoli BROWNINGDOB: Hospitals cy Number: [id number] Repository [facility] [id number] [address], Date:Plan Name:[address] [address]: [place] [address]Zmt: () (HP) 07/13/2018 [facility] Insurance:AARP BROWNINGDOB: Hospitals SupplementPolicy [id number] Repository Number: [facility] [address] [id number] [address] [place] [address], Date:Plan Name:Health [place] [address]Wmu: () 06/15/2018 [facility] BROWNINGDOB: Insurance:MedicarePoli BROWNINGDOB: Hospitals cy Number: [id number] Repository [facility] [address] [id number] [address], Date:Plan Name:[address], [place] [address]Xec: [place] [address]Mqt: (HP) (HP) 06/15/2018 [facility] Insurance:AARP BROWNINGDOB: Hospitals SupplementPolicy [id number] Repository Number: [facility] [id number], Date:Plan Name:Health [place] [address]Qys: (HP) 04/20/2018 [facility] BROWNINGDOB: Insurance:MedicarePoli BROWNINGDOB: [facility] cy Number: [id number] Repository [facility] [id number] [address], Date:Plan Name:[address], [place] [address]Ufn: [place] [address]Yqp: (HP) (HP) 04/20/2018 [facility] Insurance:AARP BROWNINGDOB: Hospitals SupplementPolicy [id number] Repository Number: [facility] [id number], Date:Plan Name:[facility] [address]Abh: (HP) 03/13/2018 [facility] Dinah A [place] [id number] Insurance:MEDICARE BrowningDOB: [place] [address] PART A BPolicy Number: [id number] [place], [place] [id number] Repository [address]Pnk: 419) Date:2018-03-068-4853 (HP) 03/13/2018 Secondary Dinah A [place] Insurance:AARPPolicy BrowningDOB: Community Number: [id number] Hospital [id number] Repository Date:8085-30-97[address], [place] [address]LL: 03/13/2018 Tertiary NOT GIVENUNK [place] Insurance:SELF PAY Community [facility] Number: Effective Repository Date:2018-03-06 02/23/2018 [facility] BROWNINGDOB: Insurance:MedicarePoli BROWNINGDOB: Hospitals cy Number: [id number] Repository [facility] [id number], Date:Plan Name:[address], [place] [address]Ros: [place] [address]Dvl: (HP) (HP) 02/23/2018 [facility] Insurance:AARP BROWNINGDOB: Hospitals SupplementPolicy [id number] Repository Number: [facility] [address] [id number] [address] [place] [address], Date:Plan Name:Health [place] [address]Rkr: (HP) 01/09/2018 DINAH A Primary DINAH A [facility] BROWNINGDOB: Insurance:MEDICARE A BROWNINGDOB: Health System AND BPolicy Number: [id number] Repository [facility] [id number], Date: [place] [address]Nks: (HP) 01/09/2018 Secondary DINAH A [facility] Insurance:[facility] AARP BROWNINGDOB: Health System [facility] [id number] Repository Number: [id number] Date: 12/28/2017 DINAH A Primary DINAH A [facility] BROWNINGDOB: Insurance:MEDICARE A BROWNINGDOB: Health System AND BPolicy Number: [id number] Repository [facility] [address] [id number] [address], Date: [place] [address]Fjd: (HP) 12/28/2017 Secondary DINAH A [facility] Insurance:[facility] AARP BROWNINGDOB: Health System SUPPLEMENTPoly [id number] Repository Number: [id number] Date: 12/23/2017 [facility] BROWNINGDOB: Insurance:MedicarePoli BROWNINGDOB: Hospitals cy Number: [id number] [place] [id number], Date:Plan [facility] [place], [place] [address]Cua: [place] [address]Iba: (HP) (HP) 12/23/2017 [facility] Insurance:MedicarePoli BROWNINGDOB: Hospitals cy Number: [id number] Repository [id number] Date:Plan Name:[facility] Rash[place]SOU[place] [address]Upd: (HP) 12/23/2017 [facility] Insurance:AARP BROWNINGDOB: Hospitals SupplementPoly [id number] Repository Number: [facility] [address] [id number] RashmiCOLDWATER, Date:Plan Name:Health [place] [address]Jgk: (HP) 11/17/2017 [facility] Primary [facility] BROWNINGDOB: Insurance:MedicarePoli BROWNINGDOB: [facility] cy Number: Effective [id number] Date:2017-11-17 - [facility] Repository [address] [place] [address], [id number] [address] [place] [address] Name:CD:[id number] [facility] [id number]: [id number], [place] [address]Gpg: [phone]: [phone] (HP) [phone] (HP) (WP) 11/17/2017 Secondary [facility] Insurance:AARPPolicy BROWNINGDOB: [facility] Number: Effective [id number] System Date:2017-11-17 - [address] Repository [id number] [address] [place] [address], Name:CD:[id number] [place] [id number], [place] [address]Rwe: [id number]: [phone] (HP) (WP)
== END ==
PROVIDERS: Family Provider Internal Medicine; PCP Internal Medicine; Referring Provider Nurse Practitioner Gerontology; Visit Provider Nurse Practitioner Gerontology
DX: R05 Cough (principal)
CPT/HCPCS: 71046

== ENCOUNTER → 2018-08-24 14:19 | Outpatient (CLI) | payer MEDICARE, OTHER, SELFPAY ==
--- NOTE | 2018-08-24 14:32 | RAD_ITS ---
STUDY: X-RAY CHEST REASON FOR EXAM: Female, 72 years old. Abnormal lung sounds TECHNIQUE: 2 views COMPARISON: August 17, 2018 FINDINGS: The lungs are clear and expanded. There is no demonstrated pleural abnormality. Normal size heart. Normal mediastinum and marie. Normal visualized pulmonary arteries. Normal visualized aortic arch and descending thoracic aorta. Degenerative changes of thoracic spine.. Normal visualized ribs, clavicles, and shoulders. There is no demonstrated abnormality of the visualized soft tissue structures of the upper abdomen. RAD/Chest PA and Lateral IMPRESSION: No acute findings in the lungs Electronically Signed: Harley Antony MD at 5:08 EST Tel , Service support ,
== END ==
PROVIDERS: Family Provider Internal Medicine; PCP Internal Medicine; Referring Provider Nurse Practitioner Gerontology; Visit Provider Nurse Practitioner Gerontology
DX: R09.89 Other specified symptoms and signs involving the circulatory and respiratory systems (principal)
CPT/HCPCS: 71046

== ENCOUNTER 2018-09-24 13:23 | Emergency (ER) | payer MEDICARE, OTHER, SELFPAY ==
[2018-09-24 13:23] VITALS: BP 155/84; PULSE 97; RESP 16; TEMP 36.7; O2SAT 97; BMI 25.3
--- NOTE | 2018-09-24 14:16 | ED.DCSUM_ITS ---
- ER Visit Summary Date of Service: 09/24/18 Chief Complaint: Nausea with cough and congestion. History of Present Illness: The patient is a 72 F history of hypercholesterolemia. Patient states she just has not felt well since August. She is had a lot of nausea and cough. Clear nasal drainage. No fever. Is been seen by her primary care physician and has been on 2 different antibiotics initially was on Zithromax. Then on Levaquin. She is also been on prednisone. She denies any chest pain. States she has had 2- chest x-rays. She took a Zofran she had left today. Was complaining of nausea without vomiting or diarrhea. Physical Examination: Older female no acute distress. Vital signs are stable. She is afebrile. She does not look septic or toxic. H EENT exam clear rhinorrhea. Posterior pharynx moist and pink. TMs are normal bilaterally. No erythema. Canals normal. Neck nontender. No lymphadenopathy. Lungs have a few scattered expiratory wheezes with very deep breathing. Is equal and symmetrical. No rales nor rhonchi. Heart regular rate and rhythm no murmur. Abdomen soft and no peritoneal signs. Extremities moves all 4. Calves nontender without edema. Back nontender. Neurologically she is awake alert with no focal motor deficits. Test Results: None Emergency Department Course and Treatment: Patient does not look septic or toxic. Clinically I do not hear any signs of pneumonia and she is to negative chest x-rays. She does have a few scattered wheezes I will write her for some prednisone for that. And Zofran for nausea. Treatment Plan: Zofran for nausea. Prednisone 40 mg for 1 week. Follow-up with her primary care physician. Disposition: Discharge Impression: Viral URI Seasonal allergies This note was generated with [employer] dictation software. It may contain incorrect words, spelling, and punctuation that were not noted in review of the chart prior to signing ED Disposition - Plan for ED Patient: Referrals: Lorena Arana DO [Primary Care Provider] -
--- NOTE | 2018-09-24 14:16 | ED.DEP ---
ED Disposition - Plan for ED Patient: Disposition: Home or Assisted Living Prescriptions: Ondansetron [Zofran Odt] 4 mg PO Q8H PRN PRN #10 tab PRN Reason: Nausea Prednisone [Deltasone] 40 mg PO DAILY 7 Days tab Referrals: Lorena Arana DO [Primary Care Provider] - 1 Week if not improving Additional Instructions: Plenty of fluids and rest. Prednisone for your wheezing and your seasonal allergies and Zofran as needed for nausea. If not improving follow-up your primary care physician. I absolutely do not feel that you need another antibiotic at this time. [id number] Mucinex for your nasal congestion.
[2018-09-24] MEDS: Ondansetron ODT 4 MG Tablet 8 MG PO (14:27)
[2018-09-24 14:53] VITALS: BP 157/84; PULSE 89; RESP 16; O2SAT 95
[2018-09-24] MEDS: predniSONE 20 MG Tablet 40 MG PO (14:53)
== END 2018-09-24 14:56 | disposition home or self-care (01) ==
PROVIDERS: Emergency Provider Emergency Medicine; Family Provider Internal Medicine; PCP Internal Medicine
DX: J06.9 Acute upper respiratory infection, unspecified (principal); E78.00 Pure hypercholesterolemia, unspecified; R11.0 Nausea
CPT/HCPCS: 99283

== ENCOUNTER → 2018-11-08 10:08 | Outpatient (CLI) | payer MEDICARE, OTHER, SELFPAY ==
--- NOTE | 2018-11-08 10:09 | US_ITS ---
STUDY: ABDOMINAL ULTRASOUND - RIGHT UPPER QUADRANT REASON FOR VISIT: Female, 73 years old. Elevated lateral function test TECHNIQUE: Ultrasound evaluation of the right upper quadrant was performed with real-time and static uriarte-scale imaging. TECHNICAL QUALITY: Adequate. Examination limited by bowel gas. COMPARISON: CT abdomen and pelvis 01/17/2017. FINDINGS: Liver: The liver measures 19 cm. There is increased echogenicity consistent with fatty infiltration. The bile ducts are within normal limits. There is hepatic color flow. The direction of portal flow is hepatopetal. There is no demonstrated mass lesion. Gallbladder: The patient is status post cholecystectomy. Common Bile Duct (C.B.D.): The common bile duct measures 4.3 mm. Pancreas: Normal size of the head, body and obscured tail of the pancreas. Right Kidney: Normal size of the right kidney. The right kidney measures 11 x 5.7 x 4 cm. Normal renal cortex. The right cortex measures 1.3 cm. There is no demonstrated renal mass or cyst. There is no right hydronephrosis. US/Liver IMPRESSION: Appendix steatosis and hepatomegaly. Hepatic size has increased since previous CT. Prior cholecystectomy. No ascites, biliary obstruction, hydronephrosis. Pancreas tail is obscured by bowel gas. Electronically Signed: Madhavi Leyva MD at 5:53 EDT , Service support ,
== END ==
PROVIDERS: Family Provider Internal Medicine; PCP Internal Medicine; Referring Provider Internal Medicine; Visit Provider Internal Medicine
DX: R94.5 Abnormal results of liver function studies (principal)
CPT/HCPCS: 76705

== ENCOUNTER → 2019-02-07 11:01 | Outpatient (CLI) | payer MEDICARE, OTHER, SELFPAY ==
--- NOTE | 2019-02-07 11:08 | RAD_ITS ---
STUDY: X-RAY - PELVIS AND LEFT HIP REASON FOR EXAM: Hip pain. TECHNIQUE: 2 views of the pelvis and hip. COMPARISON: Radiographs 02/05/2014 and 12/12/2013. FINDINGS: There are small pelvic phleboliths. Normal bilateral iliac wings, sacroiliac joints and visualized sacrum. Normal bilateral superior and inferior pubic rami. Normal pubic symphysis. Normal bilateral ischial tuberosities. Normal visualized femoral head. Normal acetabulum. There is mild joint space narrowing of the left hip joint. RAD/HIP, UNI W/ Pelvis 2-3 Views IMPRESSION: Mild left hip arthrosis without interval change. Electronically Signed: Eliecer Junior MD at 13:30 EDT Tel , Service support ,
--- NOTE | 2019-02-07 11:09 | RAD_ITS ---
STUDY: X-RAY - LEFT FEMUR REASON FOR STUDY: Pain. TECHNIQUE: 2 view(s) of the femur. COMPARISON: None. FINDINGS: There is a left total knee arthroplasty. Otherwise, unremarkable visualized left femur. There is a very small soft tissue calcification posterior to the distal femoral diaphysis. RAD/Femur Min 2 Views IMPRESSION: Left total knee arthroplasty. Otherwise, unremarkable x-ray examination of the left femur. Electronically Signed: Eliecer Junior MD at 12:22 EDT Tel , Service support ,
== END ==
PROVIDERS: Family Provider Internal Medicine; PCP Internal Medicine
DX: M25.562 Pain in left knee (principal); M79.18 Myalgia, other site
CPT/HCPCS: 73502; 73552

== ENCOUNTER → 2020-05-22 09:17 | Outpatient (CLI) | payer MEDICARE, OTHER, SELFPAY ==
--- NOTE | 2020-05-22 09:28 | BD_ITS ---
STUDY: DUAL ENERGY X-RAY ABSORPTIOMETRY / DXA REASON FOR EXAM: Female, 74 years old. 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 COMPARISON: Comparison is made with prior study dated 06/29/2017. FINDINGS: Lumbar Spine (L1-L4): g/cm2 (1.006) / T-score (-1.4) / Z-score (0.4) Findings are suggestive of osteopenia with a low fracture risk. Left Femur Total: g/cm2 (0.972) / T-score (-0.3) / Z-score (1.5) Left Femoral Neck: g/cm2 (0.931) / T-score (-0.8) / Z-score (1.2) Right Femur Total: g/cm2 (0.991) / T-score (-0.1) / Z-score (1.6) Right Femoral Neck: g/cm2 (0.939) / T-score (-0.7) / Z-score (1.2) The T-Scores on the most recent prior examination were: Lumbar Spine (L1-L4): There has been worsening of bone density since the previous examination. Left Femur Total: which represents a worsening of 1.1%. Right Femur Total: which represents a worsening of 3.9%. BD/Dexa Bone Density Study IMPRESSION: The patient is considered osteopenic as outlined below according to World Manish Organization (WHO) criteria with a low fracture risk. There has been worsening of bone density since the previous examination. Reference Information: The T-score is the number of standard deviations above or below the standard which is normal for young adults at their peak bone mineral density. The World Health Organization (WHO) interprets the T-scores as follows: Above -1 Normal bone density Between -1 and -2.5 Osteopenia Equal to / or below -2.5 Osteoporosis As a practical clinical guideline, osteopenia may be graded as follows: Mild -1 through -1.5 Moderate -1.6 through -2.0 Severe -2.1 through -2.4 The Z-score is the number of standard deviations above or below age-matched controls. A Z-score of less than -1.5 would be considered abnormal. References: 1. NIH Osteoporosis and Related Bone Diseases www osteo.org 2. International Society for Clinical Densitometry www iscd.org 3. National Osteoporosis Foundation www nof.org Electronically Signed: Kale Sanders, at 10:47 EDT , Service support ,
== END ==
PROVIDERS: PCP Internal Medicine; Referring Provider Internal Medicine; Visit Provider Internal Medicine
DX: Z78.0 Asymptomatic menopausal state (principal)
CPT/HCPCS: 77080

== ENCOUNTER → 2020-10-13 13:41 | Outpatient (CLI) | payer MEDICARE, OTHER, SELFPAY ==
[2020-10-13 15:27] LABS: AST(SGOT) 57 U/L (15-37); Alanine Aminotransfer ALT/SGPT 77 U/L (13-56)
== END ==
PROVIDERS: PCP Internal Medicine
DX: M79.7 Fibromyalgia (principal)
CPT/HCPCS: 36415; 84450; 84460

== ENCOUNTER → 2021-01-22 11:32 | Outpatient (CLI) | payer MEDICARE, OTHER, SELFPAY ==
--- NOTE | 2021-01-22 11:36 | RAD_ITS ---
STUDY: X-RAY - LEFT FOOT CLINICAL: Left foot pain for 2 weeks, no specific injury. TECHNIQUE: 3 view(s) of the foot. COMPARISON: Radiographs 12/12/2013. FINDINGS: There is a small posterior calcaneal enthesophyte. Otherwise, unremarkable talus, calcaneus, and tarsal bones. Normal visualized subtalar, talonavicular, calcaneocuboid, tarsal and tarsometatarsal articulations. Normal metatarsi. Normal metatarsophalangeal joint of the great toe. Normal tibial and fibular sesamoid bones. There is joint space narrowing of the interphalangeal joint of the great toe. Normal phalanges of the great toe. Normal second through fifth metatarsophalangeal joints. There is joint space narrowing of the interphalangeal joints of the lesser toes. The soft tissue structures are unremarkable. RAD/Foot min 3 Views IMPRESSION: Arthrosis of the interphalangeal joints. Small posterior calcaneal enthesophyte. Electronically Signed: Eliecer Junior MD at 12:36 EDT Tel , Service support ,
--- NOTE | 2021-01-22 11:36 | RAD_ITS ---
STUDY: X-RAY - LEFT ANKLE REASON FOR EXAM: Left ankle pain for 2 weeks, no specific injury. TECHNIQUE: 3 view(s) of the ankle. COMPARISON: None. FINDINGS: Normal visualized distal tibia and fibula. Normal medial and lateral malleoli. Normal tibiotalar articulation and ankle mortise. There is a small posterior calcaneal enthesophyte. The visualized subtalar, talonavicular, calcaneocuboid and tarsal articulations are normal. The soft tissue structures are unremarkable. RAD/Ankle min 3 Views IMPRESSION: Small posterior calcaneal enthesophyte. Otherwise, unremarkable x-ray examination of the left ankle. Electronically Signed: Eliecer Junior MD at 12:47 EDT Tel , Service support ,
== END ==
PROVIDERS: PCP Internal Medicine; Referring Provider Physician Assistant; Visit Provider Physician Assistant
DX: M25.572 Pain in left ankle and joints of left foot (principal); M79.672 Pain in left foot
CPT/HCPCS: 73610; 73630

== ENCOUNTER → 2021-02-02 12:33 | Outpatient (CLI) | payer MEDICARE, OTHER, SELFPAY ==
[2021-01-22 11:36] VITALS: BMI 26.5
--- NOTE | 2021-02-02 | LES_PTH ---
PATIENT: DINAH COOL LOC: [facility] U#:[id number] AGE/SX: 79/F ROOM: RE02/02/[address]: Dr. Joselito Herr MD : 1945 BED: DIS: SPEC #: [id number] RECD: 02/02/21 12:23 STATUS: GLO JOSE F #: [id number] RIO: 02/02/21 00:[address]: Joselito Herr DEPT: SURGICAL PATHOLOGY RECD BY: Eden Vazquez ENTERED: 02/03/21 07:53 SP TYPE: Lesion OTHR DR: Dr. Lorena Arana DO Tissues: Skin of nose, NOS Procedures: Surgery Specimen Level III HEADER OPERATION: Excision nasal lesion PRE-OP DIAGNOSIS: Nonhealing nasal lesion TISSUE SUBMITTED: Left nostril lesion MICROSCOPIC DIAGNOSIS Left nostril lesion, biopsy: Epidermal inclusion cyst. AM:iron 02/04/2021 MICROSCOPIC DESCRIPTION Slides are reviewed. GROSS DESCRIPTION Received in fixative is one container labeled with the patient's name and designated left nasal lesion. The specimen consists of an irregular fragment of light chadwick soft tissue measuring 0.3 x 0.2 x 0.2 cm. The specimen is totally submitted in one cassette. / AM:iron 02/03/21 TC:5 CPT: 14217
== END ==
PROVIDERS: PCP Internal Medicine; Visit Provider Otolaryngology
DX: L72.0 Epidermal cyst (principal)
CPT/HCPCS: 88304; 88305

== ENCOUNTER → 2021-07-23 07:34 | Outpatient (CLI) | payer MEDICARE, OTHER, SELFPAY ==
--- NOTE | 2021-07-23 07:38 | CDU_ITS ---
Reason For Study: Carotid stenosis Rt. Velocities/BP Lt. Velocities/BP Prox CCA 77.3/13.4 cm/sec. Prox CCA 102.1/17.3 cm/sec. Mid CCA 83.9/16 cm/sec. Mid CCA 93/18.6 cm/sec. Dist CCA 73.4/14.7 cm/sec. Dist CCA 70.8/16 cm/sec. Prox ICA 63/12.1 cm/sec. Prox ICA 61.9/16.8 cm/sec. Mid ICA 64.3/22.6 cm/sec. Mid ICA 76.2/21.2 cm/sec. Dist ICA 93/27.8 cm/sec. Dist ICA 82.8/25.6 cm/sec. Rt. ICA/CCA = 1.2. Lt. ICA/CCA = 0.9. Prox ECA 95.6/8.2 cm/sec. Prox ECA 65.6/5.6 cm/sec. Rt. Vert. 89.1/21.3 cm/sec. Lt. Vert. 60.8/14.6 cm/sec. Right Extracranial There is homogeneous, smooth atherosclerotic plaque noted in the right common carotid artery. There is intimal thickening but no significant atherosclerotic plaque noted in the right internal carotid artery. There is heterogeneous, irregular atherosclerotic plaque noted in the right external carotid artery. Antegrade flow is noted in the right vertebral artery. Left Extracranial There is homogeneous, smooth atherosclerotic plaque noted in the left common carotid artery. There is intimal thickening but no significant atherosclerotic plaque noted in the left internal carotid artery. There is intimal thickening but no significant atherosclerotic plaque noted in the left external carotid artery. Antegrade flow is noted in the left vertebral artery. Procedure Carotid Duplex 47092. This is a Carotid Duplex examination using B-mode, color flow and specral Doppler. Exam performed in department. VL/Carotid Duplex Ultrasound Interpretation Summary Mild (<50%) stenosis right extracranial internal carotid. Mild (<50%) stenosis left extracranial internal carotid. Flow within the vertebral arteries is antegrade bilaterally. Ordering Physician: Lorena Arana Referring Physician: Lorena Arana Performed By: Crystal Velazco RVT
== END ==
PROVIDERS: PCP Internal Medicine; Referring Provider Internal Medicine; Visit Provider Internal Medicine
DX: I65.23 Occlusion and stenosis of bilateral carotid arteries (principal)
CPT/HCPCS: 93880

== ENCOUNTER 2021-09-10 07:37 | Outpatient (CLI) | payer MEDICARE, OTHER, SELFPAY ==
--- NOTE | 2021-09-10 07:40 | CT_ITS ---
STUDY: CT FACIAL BONES WITHOUT CONTRAST REASON FOR EXAM: Female, 75 years old. SINUSITIS RADIATION DOSAGE (If Supplied By Facility): CTDIvol = ( 33.06 ) mGy, DLP = ( 718.15 ) mGycm TECHNIQUE: The patient was scanned in a multi detector CT scanner. Sagittal and coronal images were reconstructed. Individualized dose optimization techniques were used for this CT. COMPARISON: None. FINDINGS: Normal soft tissue structures. Normal orbital león and orbital contents. Nasal septal deviation towards the left side of midline. Andie bullosa of the right middle turbinate. Normal facial bones. There is no demonstrated fracture. Normal visualized paranasal sinuses. CT/Sinus/Facial Bone IMPRESSION: Normal unenhanced CT of the facial bones. Andie bullosa of the right middle turbinate. Mild degree of nasal septal deviation towards the left side of the midline. Electronically Signed: Kale Sanders MD at 9:06 EST ,
--- NOTE | 2021-09-10 07:43 | CT_ITS ---
STUDY: CTA NECK WITH CONTRAST REASON FOR EXAM: Female, 75 years old. CAROTID STENOSIS RADIATION DOSAGE (If Supplied By Facility): CTDIvol = ( 15.91 ) mGy, DLP = ( 462.86 ) mGycm TECHNIQUE: CT angiography with multi-detector data acquisition was performed from the aortic arch to the skull base following intravenous administration of IV 100mL Isovue-370. MIP images were reconstructed from the axial data set. Post-processing of the angiographic images was performed, with multiplanar reformation and 3D reconstruction. Individualized dose optimization techniques were used for this CT. COMPARISON: None. FINDINGS: AORTIC ARCH: There is atherosclerotic calcific plaque formation of the aortic arch and great vessels arising from the aortic arch, without a hemodynamically significant stenosis. There is a normal origin of the brachiocephalic, left common carotid, and left subclavian arteries. Atherosclerotic calcified plaques at the origin of the left subclavian artery. RIGHT CAROTID ARTERIES: Normal right common carotid artery (CCA). Normal right common carotid bulb. Normal origin of the right internal carotid (ICA) artery without a hemodynamically significant stenosis. Normal visualized cervical portion of the right internal carotid artery. Normal origin of the right external carotid artery (ECA). LEFT CAROTID ARTERIES: Normal left common carotid artery (CCA). Normal left common carotid bulb. Normal origin of the left internal carotid (ICA) artery without a hemodynamically significant stenosis. Normal visualized cervical portion of the left internal carotid artery. Normal origin of the left external carotid artery (ECA). VERTEBRAL ARTERIES: Normal bilateral vertebral arteries. CT/CTA Neck W/WO Contrast IMPRESSION: Normal bilateral cervical carotid and vertebral arteries. Electronically Signed: Kale Sanders MD at 9:15 EST ,
[2021-09-10 09:21] LABS: CREATININE FINGERSTICK < 0.6 mg/dL (0.55-1.02); EGFR FINGERSTICK > 60.0000 mL/min (>60)
== END 2021-09-10 23:59 | disposition home or self-care (01) ==
LOC: CT 07:39
PROVIDERS: PCP Internal Medicine; Referring Provider Otolaryngology; Visit Provider Otolaryngology
DX: I65.23 Occlusion and stenosis of bilateral carotid arteries (principal); J32.0 Chronic maxillary sinusitis
CPT/HCPCS: 70486; 70498

== ENCOUNTER 2021-10-28 08:21 | Outpatient (CLI) | payer MEDICARE, OTHER, SELFPAY ==
--- NOTE | 2021-10-28 08:23 | US_ITS ---
STUDY: RENAL ULTRASOUND - COMPLETE REASON FOR EXAM: Female, 76 years old. UTI TECHNIQUE: Ultrasound evaluation of the kidneys was performed with real-time and static sabillno-scale imaging. COMPARISON: None. FINDINGS: RIGHT KIDNEY: Normal location of the right kidney, which is normal in size. The right kidney measures 10.6 cm x 5 cm x 4.9 cm. There is a normal cortex of the right kidney. The renal cortex measures 1.7 cm. There is no right renal mass or cyst. There are no right renal calculi. There is no right hydronephrosis. DISTAL RIGHT URETER: There is non-visualization of the distal right ureter. There is no demonstrated right ureterovesical junction calculus. There is a visualized right ureteral jet. LEFT KIDNEY: Normal location of the left kidney, which is normal in size. The left kidney measures 12.4 cm x 4.5 cm x 6.2 cm. There is a normal cortex of the left kidney. The renal cortex measures 1.6 cm. There is no left renal mass or cyst. There are no left renal calculi. There is no left hydronephrosis. DISTAL LEFT URETER: There is non-visualization of the distal left ureter. There is no demonstrated left ureterovesical junction calculus. There is a visualized left ureteral jet. BLADDER: The distended urinary bladder has a volume of 278 ml. The empty urinary bladder has a volume of 184 ml. There is a normal wall thickness of the distended urinary bladder. There is no demonstrated mass within the urinary bladder. There are no demonstrated bladder calculi. There is evidence of a bladder prolapse into the vaginal canal. US/Kidney and Bladder IMPRESSION: Normal ultrasound of the kidneys. Moderate postvoid residual. The bladder was seen prolapsing into the vaginal canal. Electronically Signed: Kale Sanders MD at 11:11 EDT ,
== END 2021-10-28 23:59 | disposition home or self-care (01) ==
LOC: US 08:22
PROVIDERS: PCP Internal Medicine; Referring Provider Urology; Visit Provider Urology
DX: N39.0 Urinary tract infection, site not specified (principal)
CPT/HCPCS: 76770

== ENCOUNTER → 2021-11-30 | Outpatient (CLI) | payer MEDICARE, OTHER, SELFPAY ==
--- NOTE | 2021-11-30 16:14 | RAD_ITS ---
STUDY: X-RAY CHEST REASON FOR EXAM: Female, 76 years old. SOB TECHNIQUE: PA and lateral COMPARISON: None. FINDINGS: The lungs are clear and expanded. There is no demonstrated pleural abnormality. Normal size heart. Normal mediastinum and marie. Normal visualized pulmonary arteries. Normal visualized aortic arch and descending thoracic aorta. Normal visualized thoracic spine. Normal visualized ribs, clavicles, and shoulders. There is no demonstrated abnormality of the visualized soft tissue structures of the upper abdomen. RAD/Chest PA and Lateral IMPRESSION: Normal x-ray examination of the chest. Electronically Signed: Emre Moralez MD at 0:50 EDT ,
== END | disposition home or self-care (01) ==
LOC: MTRAD 16:12
PROVIDERS: PCP Internal Medicine; Referring Provider Urology; Visit Provider Urology
DX: R06.02 Shortness of breath (principal)
CPT/HCPCS: 71046

== ENCOUNTER 2021-12-07 08:46 | Day surgery (SDC) | payer MEDICARE, OTHER, SELFPAY ==
[2021-12-07] VITALS (9 sets, daily range): BP systolic 146–167; BP diastolic 82–101; PULSE 72–84; RESP 16–18; TEMP 36.2–36.4; O2SAT 94–99; BMI 28.0
--- NOTE | 2021-12-07 08:50 | EKG12_ITS ---
Test Reason : PRE-OP Blood Pressure : / mmHG Vent. Rate : 077 BPM Atrial Rate : 077 BPM P-R Int : 154 ms QRS Dur : 080 ms QT Int : 394 ms P-R-T Axes : 031 -02 067 degrees QTc Int : 445 ms Normal sinus rhythm Normal ECG Confirmed by FRANCIA PIEDRA, KIRAN ([id number]), story editor ELLYN SANDERSON ([id number]) on 12/09/2021 11:18:39 AM Referred By: Kristin Henning Confirmed By:KIRAN FELDMAN MD
[2021-12-07] MEDS: Lactated Ringers 1,000 ML 15 ML IV (09:00)
[2021-12-07 09:23] LABS: Hematocrit 43.6 % (37-47); Hemoglobin 14.6 g/dL (12.0-15.0); Mean Corp Hgb Conc 33.5 g/dL (32-36); Mean Corpuscular Hgb 30.4 pg (27.0-32.0); Mean Corpuscular Volume 90.6 fL (81-99); Mean Platelet Vol. 9.8 fl (6.2-12.0); Platelet Count 240 K/mm3 (150-450); RBC Distribution Width CV 12.4 % (11.6-14.6); Red Blood Count 4.81 M/mm3 (4.2-5.4); White Blood Count 7.5 K/mm3 (4.4-11.0)
[2021-12-07 09:45] LABS: Anion Gap 6 (5-15); BUN 14 mg/dL (7-18); Calcium,Total 9.3 mg/dL (8.5-10.1); Chloride 107 mmol/L (98-107); EST Glomerular Filtration Rate 86 mL/min (>60); Est Glom Filt Rate - Afr Amer 104 mL/min (>60); Estimated Creatinine Clearance 38.97 ml/min; Glucose 120 mg/dL (74-106); Sodium Level 139 mmol/L (136-145)
--- NOTE | 2021-12-07 09:51 | HP.PCM_ITS ---
HPI - General HPI Narrative DINAH COOL, is a 76 F who presents for resection of bladder tumor found in the office. Informed consent was obtained. [facility] Medical History (Updated 12/07/21 @ 09:[address] Kristin Henning MD) Arthritis Atelectasis of both lungs Back pain Bladder disease Bladder mass Fatty liver Former smoker Gastric reflux Hay fever History of diverticulitis History of echocardiogram History of edema History of hiatal hernia History of steroid therapy History of stress test Left ankle pain Left foot pain Leg cramps Loss of hearing Migraine headache Pain Pneumonia Shortness of breath on exertion Wears contact lenses Home Medications omeprazole 20 mg PO DAILY 11/08/13 [History Last Taken 09/24/18] Clamara Estrogen Patch 0.05 mg TRANSDERM. QWEEK 11/15/14 [History Last Taken 09/24/18] cholecalciferol (vitamin D3) 50,000 unit PO QWEEK 11/15/14 [History Last Taken 09/24/18] hydrocodone-acetaminophen 1 - 2 tab PO Q4H PRN PRN #20 tablet 11/22/14 [Rx Last Taken 09/24/18] guaifenesin 600 mg tablet, extended release 12 hr 600 mg PO Q12H PRN 01/22/21 [History Last Taken Unknown] albuterol (refill) 90 mcg INHALATION PRN PRN 11/30/21 [History Last Taken Unknown] d-mannose 500 mg PO DAILY 12/01/21 [History Last Taken Unknown] Allergy/AdvReac Type Severity Reaction Status Date / Time gabapentin Allergy Rash Verified 12/07/21 08:58 Iodinated Contrast Media Allergy Hives Verified 12/07/21 08:58 [Iodinated Contrast Media - IV Dye] tetracycline [Tetracycline] Allergy Hives Verified 12/07/21 08:58 Surgical History H/O: hysterectomy Hx of arthroplasty Hx of bladder repair surgery Hx of cholecystectomy Hx of laparoscopy Hx of nasal septoplasty Social History Smoking Status: Former smoker alcohol intake: never ROS Constitutional Constitutional: Reports systems reviewed and no addt'l complaints, except as documented Eyes Eyes: Reports systems reviewed and no addt'l complaints, except as documented ENT HEENT: Reports systems reviewed and no addt'l complaints, except as documented Cardiovascular Cardiovascular: Denies chest pain, diaphoresis or fatigue Respiratory/Chest Respiratory/Chest: Denies chest congestion, chest tightness, cough, inability to speak or shortness of breath at rest Gastrointestinal Gastrointestinal: Denies abdominal pain, anorexia, cramping, nausea, taste impaired or vomiting Genitourinary Genitourinary: Reports urinary incontinence; Denies anuria, burning urination, difficulty urinating or urinary hesitancy Musculoskeletal Musculoskeletal: Reports systems reviewed and no addt'l complaints, except as documented Integumentary Integumentary: Reports systems reviewed and no addt'l complaints, except as documented Neurologic Neurologic: Reports systems reviewed and no addt'l complaints, except as documented Psychiatric Psychiatric: Reports systems reviewed and no addt'l complaints, except as documented Endocrine Endocrinology: Reports systems reviewed and no addt'l complaints, except as documented Hematologic/Lymphatic Hematologic/Lymphatic: Reports systems reviewed and no addt'l complaints, except as documented Allergic/Immunologic Allergic/Immunologic: Reports systems reviewed and no addt'l complaints, except as documented Vital Signs Vital Signs Vital Signs: 12/07/21 09:16 12/07/21 09:26 Temperature 97.6 F L Temperature Source Temporal Pulse Rate 84 Respiratory Rate 16 Respiratory Pattern Normal Blood Pressure 167/101 H Blood Pressure Mean 123 Blood Pressure Source Monitor Blood Pressure Position Semi-Fowlers Blood Pressure Location Right Arm Pulse Ox 94 Oxygen Delivery Method Room Air Weight Weight: 72 kg Body Mass Index (BMI) 28.0 Physical Exam Const alert, oriented x3 and no apparent distress General Appearance: cooperative, comfortable, well kempt and well developed HEENT normocephalic, head/scalp atraumatic, hearing grossly normal bilaterally, external ears normal and external nose normal Eyes conjunctivae normal General Eye: normal appearance of both eyes Neck supple General: trachea midline Lymph Lymphatic: no lymphedema noted Chest inspection of chest normal Chest: symmetrical chest wall rise Resp normal respiratory effort, normal air movement, no retractions and no use of accessory muscles Effort and Inspection: able to speak in complete sentences and symmetric chest movement Cardio regular rate and regular rhythm GI soft to palpation, non-tender and non-distended no CVA tenderness and external exam normal Back/Spine no CVA tenderness Extremity normal to inspection Skin no rashes or lesions noted, no wounds, skin turgor normal, no jaundice, no petechiae and no mottling Neuro oriented x3, CN's II-XII intact bilaterally and moves all extremities Psych mental status grossly normal, thought process normal, cooperative, affect normal and speech normal Results Lab / Micro Data Result Diagrams: 12/07/21 09:15 12/07/21 09:15 Labs: Laboratory Results - last 24 hr 12/07/21 09:15: WBC 7.5, RBC 4.81, Hgb 14.6, Hct 43.6, MCV 90.6, MCH 30.4, MCHC 33.5, RDW Std Deviation 41.0, RDW Coeff of Jennifer 12.4, Plt Count 240, MPV 9.8 12/07/21 09:15: Sodium 139, Potassium 4.0, Chloride 107, Carbon Dioxide 26.0, Anion Gap 6, BUN 14, Creatinine 0.70, Estim Creat Clear Calc 38.97, Est GFR (MDRD) Af Amer 104, Est GFR (MDRD) Non-Af 86, BUN/Creatinine Ratio 20.0, Glucose 120 H, Calcium 9.3 Assessment & Plan Assessment/Plan (1) Bladder mass: PLAN: proceed with cystoscopy and transurethral excision bladder mass under anesthesia, informed consent has been obtained.
--- NOTE | 2021-12-07 10:01 | PCM.DC ---
Discharge Instructions Diet Discharge Diet: No restrictions Activity Discharge Activity: No Restrictions, May Drive (when not taking pain pills) and May Shower Additional Activity Instructions:: no strenuous activity for the next 2-3 days Dressing / Incision Call your doctor if you observe: Fever of 101 or Higher, Inability to urinate and Inability to have a bowel movement Follow Up Care Please Follow Up With: Kristin Henning MD When: call for appt to be seen next week. Test Results: Test results from this visit will be discussed in further detail at your follow-up appointment, if applicable. Discharge Plan Admission Attending Provider: Kristin Henning Primary Care Provider: Lorena Arana Discharge Orders/Prescriptions Prescriptions: New oxycodone-acetaminophen [Percocet] 5-325 mg tablet 1 tab PO Q8H PRN (Reason: pain) 3 Days Qty: 10 RF: 0 cephalexin [cephalexin] 500 MG capsule 500 mg PO Q12 3 Days Qty: 6 RF: 0 phenazopyridine [Pyridium] 200 MG tablet 200 mg PO TID PRN PRN (Reason: Bladder Spasms) 7 Days Qty: 30 RF: 0 Continued guaifenesin [Mucinex] 600 mg tablet extended release 12hr 600 mg PO Q12H PRN (Reason: Cough) RF: 0 omeprazole 20 MG capsule 20 mg PO DAILY RF: 0 cholecalciferol (vitamin D3) 10,000 UNIT tablet 50,000 unit PO QWEEK RF: 0 Clamara Estrogen Patch 0.05 mg TRANSDERM. QWEEK RF: 0 hydrocodone-acetaminophen 1 TABLET tablet 1 - 2 tab PO Q4H PRN PRN (Reason: Pain) Qty: 20 RF: 0 albuterol (refill) 90 mcg/actuation Aerosol 90 mcg INHALATION PRN PRN (Reason: SOB) RF: 0 d-mannose 500 mg Capsule 500 mg PO DAILY RF: 0 Referrals / Follow Up: Lorena Arana DO [Primary Care Provider] - Disposition Disposition (needs filled in before D/C Order can be placed): Home, Self Care
[2021-12-07] MEDS: Cefazolin 2 GM in 0.9% Normal Saline 100 ML IV (10:05)
--- NOTE | 2021-12-07 10:07 | PCM.OPRPT ---
Problems Associated Problem List Diagnoses (1) Bladder mass: Report of Operation Date of Procedure: 12/07/21 Pre-Operative Diagnosis: bladder mass Post-Operative Diagnosis: same Surgery/Procedure Performed:: cystoscopy, transurethral resection bladder tumor, small Surgeon: Kristin Henning Type of Anesthesia: General Specimen's removed: Bladder tumor small Description of Procedure: The patient is a 76-year-old female who was undergoing evaluation for management of her prolapse and a bladder tumor was found on cystoscopy in the area of the trigone. She now presents for resection. The patient was taken to the operating room and placed on the operating room table. Anesthesia monitored the head, neck, airway, IV access and vital signs throughout the case. Once anesthesia was appropriate ministered the patient was placed into dorsal lithotomy position was prepped and draped in usual sterile fashion. Upon entry through the urethra into the urinary bladder under direct visualization with the cystoscope, the tumor was seen in the area of the trigone consistent with what was found in the office on cystoscopy. It is smaller than was initially thought, approximately 5 to 7 mm in size. No other lesions were identified. It is approximately 1.5 cm from the left ureteral orifice. Using the resectoscope, the lesion in its entirety was removed and submitted for evaluation to pathology. The base of this tissue surrounding were cauterized for hemostatic control and tissue treatment. The ureteral orifice remained intact at the conclusion of the case. The patient's bladder was emptied and the cystoscope was removed. The patient was then awakened and taken to the recovery room in good condition. There were no complications during this procedure Grafts/Implants Used: none Complications none Admit VTE Documentation VTE Present on Admission: Yes VTE Mechan Device Prophylaxis: SCD's VTE Pharm Prophylaxis ordered?: No Reason prophylaxis not ordered:: Treatment Not Indicated
--- NOTE | 2021-12-07 10:10 | BLB_PTH ---
PATIENT: DINAH COOL LOC: [facility] [place] U#:[id number] AGE/SX: 76/F ROOM: RE12/07/[address]: Dr. Kristin Henning MD : [id number] BED: DIS: 12/07/2021 SPEC #: [id number] RECD: 12/07/21 11:37 STATUS: GLO KOHLER #: [id number] RIO: 12/07/21 10:[address]: Kristin Henning DEPT: SURGICAL PATHOLOGY RECD BY: Eden Vazquez ENTERED: 12/07/21 12:42 SP TYPE: TURB OTHR DR: Dr. Lorena Arana DO Tissues: Urinary bladder, NOS Procedures: Surgery Specimen Level V HEADER OPERATION: Cysto, transurethral resection bladder, [employer] PRE-OP DIAGNOSIS: Bladder mass TISSUE SUBMITTED: Bladder tumor MICROSCOPIC DIAGNOSIS Bladder tumor, TUR: A fragment of urothelial mucosa with mild epithelial hyperplasia and focal squamous metaplasia. Negative for atypia or malignancy. See comment. ADRIEN:iron 12/08/2021 COMMENT The specimen shows marked cautery artifact. Detrusor muscle is not present in the specimen. Correlation with clinical, cystoscopy findings and appropriate follow up are necessary. Case has been reviewed in consultation with Dr. Gurrola who concurs with the above diagnosis. IDC:AM MICROSCOPIC DESCRIPTION Slides are reviewed. GROSS DESCRIPTION Received in fixative is one container labeled with the patient's name and designated bladder tumor. The specimen consists of one irregular fragment of light chadwick soft tissue that measures 0.2 x 0.1 x 0.1 cm. The specimen is totally submitted in one cassette. / ADRIEN:iron 12/07/2021 TC:5 [facility]: [id number]
[2021-12-07] MEDS: Acetaminophen 325 MG Tablet PO (12:34)
[2021-12-07] MEDS: oxyCODONE 5 MG Tablet PO (12:35)
== END 2021-12-07 14:29 | disposition home or self-care (01) ==
LOC: SDC 08:47 → AC 08:49
PROVIDERS: PCP Internal Medicine; Referring Provider Urology; Visit Provider Urology
PROC: 0TBB8ZZ Excision of Bladder, Via Natural or Artificial Opening Endoscopic (ICD-10-PCS; CPT 52234; principal; 2021-12-07 10:00)
DX: N32.9 Bladder disorder, unspecified (principal); Z87.891 Personal history of nicotine dependence; Z90.710 Acquired absence of both cervix and uterus; K21.9 Gastro-esophageal reflux disease without esophagitis
CPT/HCPCS: 52234; 00912; 80048; 85027; 88307; 93005; J7120; J2405

== ENCOUNTER → 2022-02-09 | Outpatient (CLI) | payer MEDICARE, OTHER, SELFPAY ==
--- NOTE | 2022-02-09 14:43 | RAD_ITS ---
STUDY: X-RAY CHEST REASON FOR EXAM: Female, 76 years old. COUGH TECHNIQUE: PA and lateral views of the chest. COMPARISON: Comparison is made with prior study dated 11/30/2021. FINDINGS: Hyperinflation. Stable mild increased linear markings at the lung bases slightly more prominent at the left lung base suggestive of scarring. There is no demonstrated pleural abnormality. Normal size heart. Normal mediastinum and marie. Normal visualized pulmonary arteries. There is atherosclerotic tortuosity of the aortic arch and descending thoracic aorta. There are diffuse degenerative changes of the visualized thoracic spine. Normal visualized ribs, clavicles, and shoulders. The patient is status post cholecystectomy. Small hiatal hernia. RAD/Chest PA and Lateral IMPRESSION: Hyperinflation. Stable mild increased markings at the lung bases suggestive of scarring. Electronically Signed: Kale Sanders MD at 15:09 EDT ,
== END | disposition home or self-care (01) ==
LOC: MTRAD 14:40
PROVIDERS: PCP Internal Medicine; Referring Provider Nurse Practitioner Family; Visit Provider Nurse Practitioner Family
DX: R05.9 Cough, unspecified (principal)
CPT/HCPCS: 71046

== ENCOUNTER → 2022-09-08 | Outpatient (CLI) | payer MEDICARE, OTHER, SELFPAY ==
--- NOTE | 2022-09-08 07:17 | MRI_ITS ---
STUDY: MRI LUMBAR SPINE WITHOUT CONTRAST REASON FOR EXAM: Female, 76 years old. LBP, DISC DISPLACEMENT TECHNIQUE: Standardized fat and water weighted pulse sequences were obtained in the sagittal and axial planes. COMPARISON: Lumbar spine radiographs 05/07/2022. FINDINGS: T10-T11: (Sagittal only). Normal endplates. Normal disc height, hydration and morphology. Normal central canal and bilateral intervertebral neural foramina. T11-T12: (Sagittal only). Normal endplates. Minimal disc space height narrowing. Tiny ventral extradural defect due to tiny posterior bulging annulus. Normal central canal and bilateral intervertebral neural foramina. T12-L1: (Sagittal only). Normal endplates. Normal disc height, hydration and morphology. Normal central canal and bilateral intervertebral neural foramina. Normal lumbar lordosis. There is no substantial scoliosis. Normal conus medullaris that terminates at the lower T12 vertebral body level. L1-2: Normal endplates. Minimal disc space height narrowing. Tiny ventral extradural defect due to tiny posterior bulging annulus. Mild bilateral degenerative facet arthropathy. Normal central canal and bilateral lateral recesses. Normal bilateral intervertebral neural foramina. L2-3: Normal endplates. Normal disc height, hydration and morphology. Normal bilateral facet joints. Normal central canal and bilateral lateral recesses. Normal bilateral intervertebral neural foramina. L3-4: Normal endplates. Mild disc space height narrowing. No ventral extradural defect. Mild bilateral degenerative facet hypertrophy. Normal central canal and bilateral lateral recesses. Normal bilateral intervertebral neural foramina. L4-5: Normal endplates. Minimal disc space height narrowing. Grade 1 degenerative anterolisthesis of L4 on L5. Pronounced bilateral degenerative facet hypertrophy and posterior ligamenta flava hypertrophy. Severe central canal stenosis with an AP canal diameter of 3 mm. Mild stenosis of the bilateral lateral recesses. Normal bilateral intervertebral neural foramina. L5-S1: Normal endplates. Normal disc height and morphology. Moderately pronounced bilateral degenerative facet hypertrophy. Moderate central canal stenosis with an AP canal diameter 7.3 mm secondary to developmentally short pedicles. Normal bilateral lateral recesses. Mild stenosis of the left intervertebral neural foramen. Normal right intervertebral neural foramen. Normal visualized sacral ala. Normal visualized paraspinous soft tissue structures. MRI/Spine Lumbar (Routine) IMPRESSION: 1. Severe central canal stenosis at L4-L5 disc space level with an AP canal diameter of 7.3 mm, pronounced bilateral degenerative facet hypertrophy and posterior ligamenta flava hypertrophy and grade 1 degenerative anterolisthesis of L4 on L5. 2. Moderate central canal stenosis at L5-S1 disc space level with an AP canal diameter 7.3 mm secondary to developmentally short pedicles, moderately pronounced bilateral degenerative facet hypertrophy and mild stenosis of the left intervertebral neural foramen. 3. No MRI evidence of lumbar extruded disc fragment or disc protrusion. Electronically Signed: Jareth Sandoval MD at 8:39 EST ,
== END | disposition home or self-care (01) ==
LOC: MRI 07:08
PROVIDERS: PCP Internal Medicine; Referring Provider Internal Medicine; Visit Provider Internal Medicine
DX: M51.26 Other intervertebral disc displacement, lumbar region (principal)
CPT/HCPCS: 72148

== ENCOUNTER → 2023-01-05 | Outpatient (CLI) | payer MEDICARE, OTHER, SELFPAY ==
--- NOTE | 2023-01-05 09:59 | BD_ITS ---
STUDY: DUAL ENERGY X-RAY ABSORPTIOMETRY / DXA REASON FOR EXAM: Female, 77 years old. [id number] TECHNIQUE: Bone Mineral Density (BMD) measurements of lumbar spine and bilateral hips were obtained. COMPARISON: Comparison is made with prior study dated May 22, 2020. FINDINGS: Lumbar Spine (L1-L4): g/cm2 (0.849) / T-score (-1.5) / Z-score (1.0) Findings are suggestive of osteopenia with a low fracture risk. Left Femur Total: g/cm2 (0.915) / T-score (-0.2) / Z-score (1.7) Left Femoral Neck: g/cm2 (0.783) / T-score (-0.6) / Z-score (1.6) Right Femur Total: g/cm2 (0.920) / T-score (-0.2) / Z-score (1.8) Right Femoral Neck: g/cm2 (0.762) / T-score (-0.8) / Z-score (1.4) The T-Scores on the most recent prior examination were: Lumbar Spine (L1-L4): There has been worsening of bone density since the previous examination. Left Femur Total: which represents an improvement of 0.9%. Right Femur Total: which represents a worsening of 0.6%. BD/Dexa Bone Density Study IMPRESSION: The patient is considered osteopenic as outlined below according to World Manish Organization (WHO) criteria with a low fracture risk. There has been worsening of bone density since the previous examination. Reference Information: The T-score is the number of standard deviations above or below the standard which is normal for young adults at their peak bone mineral density. The World Health Organization (WHO) interprets the T-scores as follows: Above -1 Normal bone density Between -1 and -2.5 Osteopenia Equal to / or below -2.5 Osteoporosis As a practical clinical guideline, osteopenia may be graded as follows: Mild -1 through -1.5 Moderate -1.6 through -2.0 Severe -2.1 through -2.4 The Z-score is the number of standard deviations above or below age-matched controls. A Z-score of less than -1.5 would be considered abnormal. References: 1. NIH Osteoporosis and Related Bone Diseases www osteo.org 2. International Society for Clinical Densitometry www iscd.org 3. National Osteoporosis Foundation www nof.org Electronically Signed: Kale Sanders MD at 10:42 EDT ,
== END | disposition home or self-care (01) ==
LOC: OPBD 09:48
PROVIDERS: PCP Internal Medicine; Referring Provider Internal Medicine; Visit Provider Internal Medicine
DX: Z78.0 Asymptomatic menopausal state (principal)
CPT/HCPCS: 77080

== ENCOUNTER → 2023-06-22 | Outpatient (CLI) | payer MEDICARE, OTHER, SELFPAY ==
--- NOTE | 2023-06-22 10:21 | MRI_ITS ---
STUDY: MRI RIGHT SHOULDER REASON FOR EXAM: Female, 77 years old. Right shoulder pain. TECHNIQUE: Standardized fat and water weighted pulse sequences were obtained in all 3 orthogonal planes. COMPARISON: Right shoulder radiographs dated 11/24/2022. FINDINGS: There are full-thickness tears of the distal supraspinatus and infraspinatus tendons, with up to 3.2 cm medial tendon retraction. There is subscapularis tendinosis. Normal teres minor tendon. There is mild fatty infiltration of the supraspinatus, infraspinatus, subscapularis, and teres minor muscles. There is glenohumeral arthrosis with joint space narrowing, marginal osteophyte formation, and chondral thinning. There is a moderate glenohumeral joint effusion with fluid communicating into the subacromial-subdeltoid bursa. Intact humeral head and visualized proximal humerus. Intact biceps labral complex. There is long biceps tendinosis with medial subluxation at the proximal bicipital groove (axial T2 series 4 images 16-17). Normal labrum. Normal capsulo-ligamentous complex. There is hypertrophic acromioclavicular arthrosis, with inferior osteophyte formation, with effacement of the torn end of the supraspinatus tendon (coronal T2 series 6 image 15). There is a Type II morphology (curved), with a neutral orientation. Normal visualized coracohumeral and coracoacromial ligaments. Normal quadrilateral space. Normal axillary space. Normal deltoid muscle. Normal trapezius muscle. MRI/Upper Ext Joint Only(Routine) IMPRESSION: Full-thickness tears of the distal supraspinatus and infraspinatus tendons, with up to 3.2 cm medial tendon retraction. Subscapularis tendinosis. Mild fatty infiltration of the supraspinatus, infraspinatus, subscapularis, and teres minor muscles. Glenohumeral arthrosis. Moderate glenohumeral joint effusion with fluid communicating into the subacromial-subdeltoid bursa. Long biceps tendinosis with medial subluxation at the proximal bicipital groove. Hypertrophic acromioclavicular arthrosis, with inferior osteophyte formation, with effacement of the torn end of the supraspinatus tendon. Electronically Signed: Jagdish Nino MD at 13:42 EST ,
== END | disposition home or self-care (01) ==
LOC: MRI 10:20
PROVIDERS: PCP Internal Medicine; Referring Provider Internal Medicine; Visit Provider Internal Medicine
DX: M25.511 Pain in right shoulder (principal)
CPT/HCPCS: 73221

== ENCOUNTER → 2023-09-16 | Outpatient (CLI) | payer MEDICARE, OTHER, SELFPAY ==
--- NOTE | 2023-09-16 08:45 | CDU_ITS ---
Reason For Study: STENOSIS Rt. Velocities/BP Lt. Velocities/BP Prox CCA 80.6/12.6 cm/sec. Prox CCA 97.4/16.0 cm/sec. Mid CCA 79.6/15.4 cm/sec. Mid CCA 106.3/17.9 cm/sec. Dist CCA 67.4/13.5 cm/sec. Dist CCA 107.6/20.4 cm/sec. Prox ICA 69.5/11.9 cm/sec. Prox ICA 74.8/14.6 cm/sec. Mid ICA 76.1/24.2 cm/sec. Mid ICA 72.3/15.8 cm/sec. Dist ICA 83.7/26.1 cm/sec. Dist ICA 127.7/32.7 cm/sec. Rt. ICA/CCA = 83.7/79.6=1.1. Lt. ICA/CCA = 127.7/106.3=1.2. Prox ECA 84.4/6.9 cm/sec. Prox ECA 76.0/6.0 cm/sec. Rt. Vert. 79.9/27.0 cm/sec. Lt. Vert. 70.2/15.3 cm/sec. Right Extracranial There is intimal thickening but no significant atherosclerotic plaque noted in the right common carotid artery. There is no significant atherosclerotic plaque noted in the right internal carotid artery. There is no significant atherosclerotic plaque noted in the right external carotid artery. Antegrade flow is noted in the right vertebral artery. Left Extracranial There is intimal thickening but no significant atherosclerotic plaque noted in the left common carotid artery. There is intimal thickening but no significant atherosclerotic plaque noted in the left internal carotid artery. There is no significant atherosclerotic plaque noted in the left external carotid artery. Antegrade flow is noted in the left vertebral artery. Procedure Carotid Duplex [id number]. This is a Carotid Duplex examination using B-mode, color flow and specral Doppler. Exam performed in department. VL/Carotid Duplex Ultrasound Interpretation Summary Normal right extracranial internal carotid. Normal left extracranial internal carotid. Patent and antegrade vertebrals bilaterally. Ordering Physician: Lorena Arana Referring Physician: Lorena Arana Performed By: Sheri Hayes RDCS, RVT
== END | disposition home or self-care (01) ==
PROVIDERS: PCP Internal Medicine; Referring Provider Internal Medicine; Visit Provider Internal Medicine
DX: I65.23 Occlusion and stenosis of bilateral carotid arteries (principal)
CPT/HCPCS: 93880

== ENCOUNTER 2023-11-26 19:08 | Emergency (ER) | payer MEDICARE, OTHER, SELFPAY ==
[2023-11-26 19:09] VITALS: BP 176/81; PULSE 99; RESP 18; TEMP 35.7; O2SAT 95; BMI 26.2
--- NOTE | 2023-11-26 19:26 | EKG12_ITS ---
Test Reason : COLD Blood Pressure : / mmHG Vent. Rate : 099 BPM Atrial Rate : 099 BPM P-R Int : 150 ms QRS Dur : 080 ms QT Int : 374 ms P-R-T Axes : 034 006 071 degrees QTc Int : 479 ms Sinus rhythm with Premature atrial complexes Otherwise normal ECG Confirmed by MAE PIEDRA, FRANCK ([id number]), primer expeditor and drier JODI ROSA ([id number]) on 11/28/2023 9:44:23 AM Referred By: Confirmed By:FRANCK WALL MD
--- NOTE | 2023-11-26 19:30 | EX.ED.DYSGE1 ---
HPI <ALEN Frias - Last Filed: 11/26/23 20:41> History of Present Illness Chief Complaint: Cold Sx Narrative Narrative: Patient is a 78-year-old female with history of asthma/COPD, chronic back pain, GERD who presents to the emergency department for 3 weeks of multiple different symptoms. Patient states that she has been having worsening allergies with the weather change, she was given a Kenalog shot. Patient states she continued to have coughing and congestion, she is also complaining of upper GI symptoms such as early satiety, bloating, she is still having bowel movements. She denies any vomiting. Patient does take Prilosec. However she states that she is still congested in her nose and her chest and is here for evaluation. She also states that she is feels that she has been having palpitations of the last several days. PFSH <ALEN Frias - Last Filed: 11/26/23 20:41> FOR[facility]LY [facility], [facility] Medical History (Updated 11/26/23 @ 21:[address] Stephan Godwin DO) Arthritis Atelectasis of both lungs Back pain Bladder disease Bladder mass Fatty liver Former smoker Gastric reflux Hay fever History of diverticulitis History of echocardiogram History of edema History of hiatal hernia History of steroid therapy History of stress test Left ankle pain Left foot pain Leg cramps Loss of hearing Migraine headache Pain Pneumonia Shortness of breath on exertion Wears contact lenses Home Medications omeprazole 20 mg capsule,delayed release 20 mg PO DAILY 11/08/13 [History Last Taken 09/24/18] Clamara Estrogen Patch 0.05 mg TRANSDERM. QWEEK 11/15/14 [History Last Taken 09/24/18] cholecalciferol (vitamin D3) 250 mcg (10,000 unit) tablet 1,250 unit PO QWEEK 11/15/14 [History Last Taken 09/24/18] hydrocodone-acetaminophen 5-325mg 5mg-325mg 1 - 2 tab (1 - 2 x 5-325 mg) PO Q4H PRN PRN Pain #20 TABLETS 11/22/14 [Rx Last Taken 09/24/18] guaifenesin 600 mg tablet, extended release 12 hr (Mucinex) 600 mg PO Q12H PRN Cough 01/22/21 [History Last Taken Unknown] albuterol (refill) 90 mcg/actuation aerosol inhaler 90 mcg inhalation PRN PRN SOB 11/30/21 [History Last Taken Unknown] d-mannose 500 mg capsule 500 mg PO DAILY 12/01/21 [History Last Taken Unknown] clindamycin HCl 300 mg capsule 300 mg PO BID 11/26/23 [History Last Taken Unknown] prednisone 50 mg tablet 50 mg PO DAILY #5 tabs 11/26/23 [Rx Last Taken Unknown] triamcinolone acetonide 10 mg/mL suspension for injection (Kenalog) 10 mg IM QMONTH 11/26/23 [History Last Taken Unknown] Allergy/AdvReac Type Severity Reaction Status Date / Time gabapentin Allergy Rash Verified 11/26/23 19:09 Iodinated Contrast Media Allergy Hives Verified 11/26/23 19:09 [Iodinated Contrast Media - IV Dye] tetracycline [Tetracycline] Allergy Hives Verified 11/26/23 19:09 Surgical History H/O: hysterectomy Hx of arthroplasty Hx of bladder repair surgery Hx of cholecystectomy Hx of laparoscopy Hx of nasal septoplasty Social History Smoking Status: Former smoker alcohol intake: never ROS <ALEN Frias - Last Filed: 11/26/23 20:41> ROS ED ROS Narrative Constitutional: Negative for fever, weight loss, weakness. Positive for chills Eyes: Negative for vision loss, vision change, double vision ENT: Negative for any sore throat, ear pain. Positive for nasal and chest congestion Cardiovascular: Negative for any chest pain, tightness. Positive palpitations Respiratory: Negative for any sputum production, hemoptysis, dyspnea on exertion, orthopnea. Positive for cough, dyspnea Gastrointestinal: Negative for any nausea, vomiting, diarrhea, constipation, blood in stool, blood in vomit. Positive for upper abdominal pain, nausea : Negative for any urinary frequency, dysuria, retention, blood in urine Muscle skeletal: Negative for any neck pain, back pain Neurological: Negative for any headache, syncope, dizziness Skin: Negative for any rashes, itching, abrasions, lacerations Psychiatric: Negative for any depression, anxiety, stress, suicidal ideation, homicidal ideation Hematologic: Negative for any excessive bruising, easy bleeding EXAM <ALEN Frias - Last Filed: 11/26/23 20:41> Physical Exam Narrative Exam Narrative: Vital signs reviewed. Patient appears to be in no respiratory distress. Patient does sound nasal as if she is congested. HEET: Head normocephalic atraumatic, TMs clear bilaterally. Posterior pharynx is clear, moist mucous membranes. Nares clear bilaterally. Neck: Supple with no lymphadenopathy or tenderness. No signs of meningismus. Cardiac: Regular rate and rhythm no murmurs gallops or rubs, equal peripheral pulses bilaterally. Respiratory: Patient has expiratory wheezes throughout lower lungs.. No chest tenderness. Abdomen: Soft, nontender, nondistended. No abdominal bruit or pulsatile masses. No hepatosplenomegaly Extremities: No peripheral edema, no signs of gross trauma or deformity. Active full range of motion of all extremities. Neuro: Cranial nerves II through XII intact, no focal neurological deficits. Skin: Clean dry and intact with no rash, purpura, petechiae, vesicles or pustules. Backs/flank: No CVA tenderness, no midline spinal tenderness, no deformity. Psych: Normal mood and affect. No SI, HI or acute psychosis. Const Vital Signs: 11/26/23 19:09 11/26/23 19:37 11/26/23 19:51 Temperature 96.3 F L Temperature Source Temporal Pulse Rate 99 101 H Respiratory Rate 18 18 Blood Pressure 176/81 H Blood Pressure Mean 112 Pulse Ox 95 Oxygen Delivery Method Room Air Room Air 11/26/23 20:48 Temperature 97.5 F L Temperature Source Pulse Rate 110 H Respiratory Rate 16 Blood Pressure 131/68 H Blood Pressure Mean 89 Pulse Ox 95 Oxygen Delivery Method Positive well nourished and well developed General Appearance ED: well developed <Dr. Stephan Godwin, - Last Filed: 11/26/23 21:01> Physical Exam Const Vital Signs: 11/26/23 19:09 11/26/23 19:37 11/26/23 19:51 Temperature 96.3 F L Temperature Source Temporal Pulse Rate 99 101 H Respiratory Rate 18 18 Blood Pressure 176/81 H Blood Pressure Mean 112 Pulse Ox 95 Oxygen Delivery Method Room Air Room Air 11/26/23 20:48 Temperature 97.5 F L Temperature Source Pulse Rate 110 H Respiratory Rate 16 Blood Pressure 131/68 H Blood Pressure Mean 89 Pulse Ox 95 Oxygen Delivery Method [facility] <ALEN Frias - Last Filed: 11/26/23 20:41> [facility] Lab Data Labs: Laboratory Results - last 24 hr 11/26/23 19:35 WBC 8.7 RBC 4.74 Hgb 13.1 Hct 40.0 MCV 84.4 MCH 27.6 MCHC 32.8 RDW Std Deviation 41.9 RDW Coeff of Jennifer 13.5 Plt Count 267 MPV 10.0 Immature Gran % (Auto) 0.200 Neut % (Auto) 65.5 Lymph % (Auto) 22.5 [place] % (Auto) 9.1 Eos % (Auto) 2.1 Baso % (Auto) 0.6 Absolute Neuts (auto) 5.7 Absolute Lymphs (auto) 1.95 Nucleated RBC % 0 Sodium 138 Potassium 3.6 Chloride 106 Carbon Dioxide 25.0 Anion Gap 7 BUN 12 Creatinine 0.72 Estim Creat Clear Calc 52.46 Est GFR (MDRD) Af Amer 101 Est GFR (MDRD) Non-Af 83 BUN/Creatinine Ratio 16.7 Glucose 132 H Calcium 9.3 Total Bilirubin 0.90 AST 41 H ALT 50 Alkaline Phosphatase 122 H Troponin I High Sens 8 Total Protein 8.2 Albumin 4.1 Globulin 4.1 Albumin/Globulin Ratio 1.0 Lipase 32 Radiography Diagnostic Testing: Clinical Impression(s) from Imaging Studies Chest X-Ray 11/26/23 19:59 IMPRESSION: No significant interval change compared to prior study. Electronically Signed: Zaid Vasques MD at 20:09 EDT , EKG EKG shows a sinus rhythm with PACs: Interpretation: S-T Elevation Comments: Sinus rhythm with PACs, rate of 99 bpm, NC 150 ms, QRS duration 80 ms, no acute ST elevation, no acute infarct noted Treatment and Re-Evaluation :: Differential diagnosis includes however is not limited to: COPD exacerbation, community-acquired pneumonia, viral symptom such as COVID-19 influenza, RSV. GERD, gastroenteritis, gastritis, cholecystitis Patient appears generally well, patient appears nontoxic, vital signs are stable. Patient has multiple complaints. Patient is complaining of nasal congestion, cough, shortness of breath, palpitation as well as upper abdominal pain. Patient dates the symptoms been on and off for the last 3 weeks. Patient will receive a cardiac workup, chest x-ray, all radiologic examinations were read, reviewed by the emergency department attending. From these reads, a plan of care will be put in place. Patient given breathing treatments, as well as steroids. Patient be reevaluated. Patient is improving after oral steroids, breathing treatments. Patient CBC was unremarkable, patient's chemistries show glucose 132, patient's alkaline phosphatase was slightly elevated 122 the remainder of the liver panel was unremarkable lipase was negative. At this time, patient will be treated for COPD/asthma exacerbation. Patient be placed on prednisone 50 mg for 5 days. She will also be taking Flonase which she will get [id number]. Patient was ambulated around the department. Patient was able to ambulate without difficulty. Patient was maintaining her oxygen saturation. Did not drop to 92%. Patient stable for discharge. Please follow-up outpatient. <Dr. Stephan Godwin, DO - Last Filed: 11/26/23 21:01> [facility] Lab Data Attestation: I reviewed the patient's lab results. Labs: Laboratory Results - last 24 hr 11/26/23 19:35 WBC 8.7 RBC 4.74 Hgb 13.1 Hct 40.0 MCV 84.4 MCH 27.6 MCHC 32.8 RDW Std Deviation 41.9 RDW Coeff of Jennifer 13.5 Plt Count 267 MPV 10.0 Immature Gran % (Auto) 0.200 Neut % (Auto) 65.5 Lymph % (Auto) 22.5 [place] % (Auto) 9.1 Eos % (Auto) 2.1 Baso % (Auto) 0.6 Absolute Neuts (auto) 5.7 Absolute Lymphs (auto) 1.95 Nucleated RBC % 0 Sodium 138 Potassium 3.6 Chloride 106 Carbon Dioxide 25.0 Anion Gap 7 BUN 12 Creatinine 0.72 Estim Creat Clear Calc 52.46 Est GFR (MDRD) Af Amer 101 Est GFR (MDRD) Non-Af 83 BUN/Creatinine Ratio 16.7 Glucose 132 H Calcium 9.3 Total Bilirubin 0.90 AST 41 H ALT 50 Alkaline Phosphatase 122 H Troponin I High Sens 8 Total Protein 8.2 Albumin 4.1 Globulin 4.1 Albumin/Globulin Ratio 1.0 Lipase 32 Radiography Diagnostic Testing: Clinical Impression(s) from Imaging Studies Chest X-Ray 11/26/23 19:59 IMPRESSION: No significant interval change compared to prior study. Electronically Signed: Zaid Vasques MD at 20:09 EDT , Treatment and Re-Evaluation :: Differential diagnosis includes however is not limited to: COPD exacerbation, community-acquired pneumonia, viral symptom such as COVID-19 influenza, RSV. GERD, gastroenteritis, gastritis, cholecystitis Patient appears generally well, patient appears nontoxic, vital signs are stable. Patient has multiple complaints. Patient is complaining of nasal congestion, cough, shortness of breath, palpitation as well as upper abdominal pain. Patient dates the symptoms been on and off for the last 3 weeks. Patient will receive a cardiac workup, chest x-ray, all radiologic examinations were read, reviewed by the emergency department attending. From these reads, a plan of care will be put in place. Patient given breathing treatments, as well as steroids. Patient be reevaluated. Patient is improving after oral steroids, breathing treatments. Patient CBC was unremarkable, patient's chemistries show glucose 132, patient's alkaline phosphatase was slightly elevated 122 the remainder of the liver panel was unremarkable lipase was negative. At this time, patient will be treated for COPD/asthma exacerbation. Patient be placed on prednisone 50 mg for 5 days. She will also be taking Flonase which she will get [id number]. Patient was ambulated around the department. Patient was able to ambulate without difficulty. Patient was maintaining her oxygen saturation. Did not drop to 92%. Patient stable for discharge. Attending note: Patient seen and evaluated with quality manager. I perform my own [id number] evaluation. I agree with the plan of work-up. Significant seasonal allergies sinus congestion 3 weeks. Drain to her lungs. Increasing cough. History of COPD and asthma. Seen at PCP 12 days ago was given Kenalog injection. Follow-up in the office 2 days ago started on clindamycin for aspiration history. She did not aspirate however had aspirin pneumonia on years ago and felt similar. She is not allergic to penicillins. Increasing wheezing and cough. Patient examined myself after aerosol treatments improved wheezing slight tachycardia however post aerosol treatments. Two-view chest x-ray interpreted myself read by rad shows no acute process. EKG sinus rhythm. Labs are stable. Nasal swab also negative. She was ambulated remaining stable on her pulse ox. She continued on burst steroids for her wheezing and COPD and asthma history. She will follow-up with her PCP with return precautions. Discharge Plan Triage Chief Complaint: Cold Sx ED Midlevel Provider: Augusto Presley ED Provider: Stephan Godwin Dx/Rx/DC Orders Clinical Impression: Asthma exacerbation in COPD, Acute bronchospasm, Upper respiratory infection, viral Instructions: Chronic Lung Disease Avoid These, Asthma in Older Adults Prescriptions: New prednisone 50 mg tablet 50 mg PO DAILY Qty: 5 0RF No Action guaifenesin [Mucinex] 600 mg tablet extended release 12hr 600 mg PO Q12H PRN (Reason: Cough) omeprazole 20 MG capsule 20 mg PO DAILY cholecalciferol (vitamin D3) 10,000 UNIT tablet 1,250 unit PO QWEEK Patient Comments: TWICE A WEEK Rx Instructions: 1250 units Clamara Estrogen Patch 0.05 mg TRANSDERM. QWEEK hydrocodone-acetaminophen 1 TABLET tablet 1 - 2 tab PO Q4H PRN PRN (Reason: Pain) Qty: 20 0RF albuterol (refill) 90 mcg/actuation Aerosol 90 mcg INHALATION PRN PRN (Reason: SOB) d-mannose 500 mg Capsule 500 mg PO DAILY clindamycin HCl 300 mg capsule 300 mg PO BID Kenalog 10 mg/mL suspension 10 mg IM QMONTH Rx Instructions: inject into site as ten - 1 mg doses greater than or equal to 1 cm apart Primary Care Provider: Lorena Arana Referrals: Lorena Arana DO [Primary Care Provider] - Activity Restrictions/Additional Instructions: Please take the steroids until finished. Take your Flonase. Follow-up outpatient. Disposition Disposition: Home, Self Care Discharge Date/Time: 11/26/23 20:49
[2023-11-26] MEDS: Ipratropium/Albuterol Sulfate 3 ML AMPUL.NEB INHALATION (19:36)
[2023-11-26] MEDS: Albuterol 2.5 MG/3 ML VIAL.NEB. INHALATION (19:36)
[2023-11-26 19:37] VITALS: PULSE 101; RESP 18
[2023-11-26 19:43] LABS: Absolute Lymphocyte Count 1.95 X10^3/uL (0.83-4.51); Absolute Neutrophil Count 5.7 X10^3/uL (2.0-7.7); Basophil# 0.05 X10^3/uL; Basophil% 0.6 % (0-1); Eosinophil# 0.18 X10^3/uL; Eosinophils% 2.1 % (0-5); Hemoglobin 13.1 g/dL (12.0-15.0); Lymphocyte # 1.95 X10^3/ul (0.83-4.51); Lymphocyte % 22.5 % (19-41); Mean Corp Hgb Conc 32.8 g/dL (32-36); Mean Corpuscular Hgb 27.6 pg (27.0-32.0); Mean Corpuscular Volume 84.4 fL (81-99); Monocyte# 0.79 X10^3/uL; Monocyte% 9.1 % (0-10); NRBC Flagged by Analyzer 0 % (0-5); Neutrophil # 5.69 X10^3/uL (2.7-7.7); Neutrophil % 65.5 % (47-70); Platelet Count 267 K/mm3 (150-450); RBC Distribution Width CV 13.5 % (11.6-14.6); RBC Distribution Width SD 41.9 fl (35.1-43.9); Red Blood Count 4.74 M/mm3 (4.2-5.4); White Blood Count 8.7 K/mm3 (4.4-11.0)
[2023-11-26] MEDS: predniSONE 20 MG Tablet 60 MG PO (19:57)
--- NOTE | 2023-11-26 19:59 | RAD_ITS ---
INDICATION: cough EXAMINATION/TECHNIQUE: X-RAY - XR Chest 2 Views COMPARISON: November 22, 2023. FINDINGS: Cardiac silhouette and mediastinal contours are stable. Interstitium is similar to prior exam. There is some streaky left basilar scarring or atelectasis. No pleural effusion. No pneumothorax. Right shoulder anchors. Cholecystectomy clips. No acute bony pathology. RAD/Chest PA and Lateral IMPRESSION: No significant interval change compared to prior study. Electronically Signed: Zaid Vasques MD at 20:09 EDT ,
[2023-11-26 20:05] LABS: AST(SGOT) 41 U/L (15-37); Alanine Aminotransfer ALT/SGPT 50 U/L (13-56); Albumin, Serum 4.1 g/dL (3.2-5.0); Alkaline Phosphatase 122 U/L (45-117); Anion Gap 7 (5-15); BUN 12 mg/dL (7-18); BUN/Creat Ratio 16.7 RATIO (10-20); Calcium,Total 9.3 mg/dL (8.5-10.1); Chloride 106 mmol/L (98-107); Creatinine, Serum 0.72 mg/dL (0.55-1.02); EST Glomerular Filtration Rate 83 mL/min (>60); Est Glom Filt Rate - Afr Amer 101 mL/min (>60); Estimated Creatinine Clearance 52.46 ml/min; Globulin 4.1 g/dL (2.2-4.2); Glucose 132 mg/dL (74-106); Potassium 3.6 mmol/L (3.5-5.1); Protein, Total 8.2 g/dL (6.4-8.2); Sodium Level 138 mmol/L (136-145); Troponin-I HS 8 pg/mL (3.0-54.0)
[2023-11-26 20:11] LABS: Lipase 32 U/L (13-75)
[2023-11-26 20:19] VITALS: O2SAT 98
[2023-11-26 20:48] VITALS: BP 131/68; PULSE 110; RESP 16; TEMP 36.4; O2SAT 95
== END 2023-11-26 20:49 | disposition home or self-care (01) ==
PROVIDERS: Nurse Practitioner; Emergency Provider Emergency Medicine; PCP Internal Medicine; Visit Provider Emergency Medicine
DX: J44.1 Chronic obstructive pulmonary disease with (acute) exacerbation (principal); Z87.891 Personal history of nicotine dependence; J06.9 Acute upper respiratory infection, unspecified; J45.901 Unspecified asthma with (acute) exacerbation; K21.9 Gastro-esophageal reflux disease without esophagitis; Z79.899 Other long term (current) drug therapy; Z90.710 Acquired absence of both cervix and uterus; Z90.49 Acquired absence of other specified parts of digestive tract
CPT/HCPCS: 71046; 80053; 83690; 84484; 85025; 87631; 93005; 94640; 99283; A4216

== ENCOUNTER → 2023-11-30 | Outpatient (CLI) | payer MEDICARE, OTHER, SELFPAY ==
[2023-11-30 15:02] VITALS: BP 158/81; PULSE 83; RESP 16; O2SAT 95; BMI 26.9
[2023-11-30] MEDS: DiphenhydrAMINE 50 MG/ML Syringe IV (15:11)
--- NOTE | 2023-11-30 16:11 | CT_ITS ---
STUDY: CTA CHEST REASON FOR EXAM: Female, 78 years old. Shortness of Breath RADIATION DOSAGE (If Supplied By Facility): CTDIvol = ( 9.37 ) mGy, DLP = ( 333.22 ) mGycm TECHNIQUE: The examination was performed with the intravenous administration of IV 100mL Isovue-370. Post-processing of the angiographic images was performed, with multiplanar reformation and 3D reconstruction. Individualized dose optimization techniques were used for this CT. COMPARISON: None. FINDINGS: Normal enhancement of the main pulmonary artery and right and left pulmonary arteries. Normal enhancement of the bilateral peripheral pulmonary arteries. There is no demonstrated pulmonary embolism. Mild atherosclerotic changes of the aorta without evidence for aneurysm. There is no demonstrated aortic dissection. Normal heart and pericardium. Mild multivessel coronary artery calcification Normal mediastinum. Normal hilar regions. Normal visualized trachea and bronchi. The lungs are well expanded. Minor subsegmental atelectasis in the lower lobes. Normal pleura. Normal chest wall structures. Dorsal spine demonstrates degenerative change. Moderate-sized hiatal hernia noted Normal visualized upper abdomen. CT/CTA Chest W/WO Contrast IMPRESSION: Minor subsegmental atelectasis in both lower lobes. No acute cardiopulmonary pathology. No evidence for pulmonary embolus Electronically Signed: Eduard Montalvo MD at 16:49 EDT ,
== END | disposition home or self-care (01) ==
LOC: CT 14:15
PROVIDERS: PCP Internal Medicine; Visit Provider Internal Medicine
DX: R06.02 Shortness of breath (principal)
CPT/HCPCS: 71275; 96374; Q9967

== ENCOUNTER 2023-12-05 17:26 | Emergency (ER) | payer MEDICARE, OTHER, SELFPAY ==
[2023-12-05 17:27] VITALS: BP 172/94; PULSE 81; RESP 16; TEMP 36.7; O2SAT 97; BMI 26.5
--- NOTE | 2023-12-05 19:16 | RAD_ITS ---
STUDY: X-RAY CHEST REASON FOR EXAM: Female, 78 years old. Cough TECHNIQUE: PA and lateral views of the chest. COMPARISON: 11/26/2023 FINDINGS: The lungs are clear and expanded. There is no demonstrated pleural abnormality. Normal size heart. Normal mediastinum and marie. Normal visualized pulmonary arteries. Normal visualized aortic arch and descending thoracic aorta. Normal visualized thoracic spine. Normal visualized ribs, clavicles, and shoulders. There is no demonstrated abnormality of the visualized soft tissue structures of the upper abdomen. RAD/Chest PA and Lateral IMPRESSION: Normal x-ray examination of the chest. Electronically Signed: Stan Correa MD at 19:46 EDT ,
[2023-12-05 19:26] VITALS: BP 166/80; PULSE 84; RESP 16; O2SAT 98
[2023-12-05 19:56] LABS: Anion Gap 5 (5-15); BUN 13 mg/dL (7-18); BUN/Creat Ratio 20.2 RATIO (10-20); Calcium,Total 8.9 mg/dL (8.5-10.1); Chloride 105 mmol/L (98-107); Creatinine, Serum 0.64 mg/dL (0.55-1.02); EST Glomerular Filtration Rate 94 mL/min (>60); Est Glom Filt Rate - Afr Amer 114 mL/min (>60); Estimated Creatinine Clearance 50.74 ml/min; Glucose 119 mg/dL (74-106); Potassium 3.8 mmol/L (3.5-5.1); Sodium Level 137 mmol/L (136-145)
--- NOTE | 2023-12-05 20:01 | CPS ---
[1955] Pt. asked if she'd want a breathing tx. to help with her breathing, but pt. politely declines at this time. Pt. states that she isn't short of breath and this point, and she claimed that breathing tx.'s, agitate her lungs. notified of pt.'s refusal at this time.
[2023-12-05 20:09] LABS: Absolute Lymphocyte Count 3.35 X10^3/uL (0.83-4.51); Absolute Neutrophil Count 7.8 X10^3/uL (2.0-7.7); Basophil# 0.04 X10^3/uL; Basophil% 0.3 % (0-1); Eosinophil# 0.26 X10^3/uL; Eosinophils% 2.1 % (0-5); Hematocrit 40.4 % (37-47); Hemoglobin 13.2 g/dL (12.0-15.0); Lymphocyte # 3.35 X10^3/ul (0.83-4.51); Lymphocyte % 26.9 % (19-41); Mean Corp Hgb Conc 32.7 g/dL (32-36); Mean Corpuscular Hgb 27.7 pg (27.0-32.0); Mean Corpuscular Volume 84.7 fL (81-99); Mean Platelet Vol. 10.4 fl (6.2-12.0); Monocyte# 1.02 X10^3/uL; Monocyte% 8.2 % (0-10); NRBC Flagged by Analyzer 0 % (0-5); Neutrophil # 7.75 X10^3/uL (2.7-7.7); Neutrophil % 62.2 % (47-70); Platelet Count 241 K/mm3 (150-450); RBC Distribution Width CV 13.4 % (11.6-14.6); RBC Distribution Width SD 41.5 fl (35.1-43.9); Red Blood Count 4.77 M/mm3 (4.2-5.4); White Blood Count 12.5 K/mm3 (4.4-11.0)
--- NOTE | 2023-12-05 20:27 | EDS_ITS ---
HPI History of Present Illness Chief Complaint: Cough Informant: patient Onset/Context/Timing Onset: Weeks Context: gradual Timing: Waxes and wanes Quality: Positive for Wheezing Worsened by: - (Eating, albuterol) Relieved by: Nothing Associated Symptoms cough; Negative for rhinorrhea, post nasal drip, ear pain, fever, sore throat, chills, sweats, clear sputum, white sputum, yellow sputum or green sputum Chest Pain: Positive for None Narrative Narrative: Patient presents with cough and congestion that has been getting worse over the past week. Patient states it is gradually getting worse. Patient states it feels similar to when she has had aspiration pneumonia in the past. Patient states it feels like her chest is raw. Patient states it is worse over the right side of her chest. Patient states her pain is worse with albuterol a erosols and with eating. Patient states she has had some diarrhea recently. Patient states she was constipated prior to that and took [id number] laxatives. Patient states that now she has had several episodes of watery loose diarrhea. Patient denies any melena or hematochezia. Patient admits to a cough but denies any sputum production. [facility] Medical History Arthritis Atelectasis of both lungs Back pain Bladder disease Bladder mass Fatty liver Former smoker Gastric reflux Hay fever History of diverticulitis History of echocardiogram History of edema History of hiatal hernia History of steroid therapy History of stress test Left ankle pain Left foot pain Leg cramps Loss of hearing Migraine headache Pain Pneumonia Shortness of breath on exertion Wears contact lenses Home Medications omeprazole 20 mg capsule,delayed release 20 mg PO DAILY 11/08/13 [History Last Taken 09/24/18] Clamara Estrogen Patch 0.05 mg TRANSDERM. QWEEK 11/15/14 [History Last Taken 09/24/18] cholecalciferol (vitamin D3) 250 mcg (10,000 unit) tablet 1,250 unit PO QWEEK 11/15/14 [History Last Taken 09/24/18] hydrocodone-acetaminophen 5-325mg 5mg-325mg 1 - 2 tab (1 - 2 x 5-325 mg) PO Q4H PRN PRN Pain #20 TABLETS 11/22/14 [Rx Last Taken 09/24/18] guaifenesin 600 mg tablet, extended release 12 hr (Mucinex) 600 mg PO Q12H PRN Cough 01/22/21 [History Last Taken Unknown] albuterol (refill) 90 mcg/actuation aerosol inhaler 90 mcg inhalation PRN PRN SOB 11/30/21 [History Last Taken Unknown] d-mannose 500 mg capsule 500 mg PO DAILY 12/01/21 [History Last Taken Unknown] clindamycin HCl 300 mg capsule 300 mg PO BID 11/26/23 [History Last Taken Unknown] prednisone 50 mg tablet 50 mg PO DAILY #5 tabs 11/26/23 [Rx Last Taken Unknown] triamcinolone acetonide 10 mg/mL suspension for injection (Kenalog) 10 mg IM QMONTH 11/26/23 [History Last Taken Unknown] Allergy/AdvReac Type Severity Reaction Status Date / Time gabapentin Allergy Rash Verified 12/05/23 17:29 Iodinated Contrast Media Allergy Hives Verified 12/05/23 17:29 [Iodinated Contrast Media - IV Dye] tetracycline [Tetracycline] Allergy Hives Verified 12/05/23 17:29 Surgical History H/O: hysterectomy Hx of arthroplasty Hx of bladder repair surgery Hx of cholecystectomy Hx of laparoscopy Hx of nasal septoplasty Social History Smoking Status: Former smoker alcohol intake: never ROS ROS ED Constitutional Constitutional ED: Denies chills or fever(s) Eyes Eyes: Denies blurry vision or change in vision ENT ENT ED: Denies rhinorrhea or sore throat Cardiovascular Cardiovascular: Reports racing heartbeat; Denies chest pain or palpitations Respiratory/Chest Respiratory/Chest: Reports cough and dyspnea; Denies sputum Gastrointestinal Gastrointestinal: Reports diarrhea; Denies nausea or vomiting Genitourinary Genitourinary ED: Denies dysuria or hematuria Musculoskeletal Musculoskeletal: Reports back pain; Denies neck pain Integumentary Denies abscess or rash Neurologic Neurologic: Denies headache(s) or weakness Allergic/Immunologic Allergic/Immunologic ED: Denies mouth swelling or urticaria EXAM Physical Exam Const Vital Signs: 12/05/23 17:27 12/05/23 19:31 12/05/23 19:26 Temperature 98.1 F Temperature Source Temporal Pulse Rate 81 84 Respiratory Rate 16 16 Respiratory Effort Normal Non-Labored Blood Pressure 172/94 H 166/80 H Blood Pressure Mean 120 108 Pulse Ox 97 98 Oxygen Delivery Method Room Air Room Air Positive well nourished and well developed General Appearance ED: well developed and NAD HEENT Reports moist mucous membranes Neck supple and no JVD Resp normal respiratory effort Auscultation: wheezes expiratory wheezes (Slight end expiratory wheeze) and t hroughout Cardio regular rate and regular rhythm GI non-tender and non-distended Palpation: soft Neuro oriented x3, CN's II-XII intact bilaterally and no sensory deficits noted Noah Coma Scale: document GCS findings Spontaneous Obeys Commands Oriented 15 Sensorium / Orientation: alert Speech: speech normal Motor Exam: strength 5/5 throughout Psych mental status grossly normal MDM MDM MDM Narrative Medical decision making narrative: Differential diagnosis includes pneumonia, pneumothorax, bronchitis, pleurisy, anxiety, and reactive airway disease. Chest x-ray will be obtained to assess for pneumonia and pneumothorax. CBC will be obtained to assess for leukocytosis and anemia. Basic metabolic profile will be obtained to assess for electrolyte abnormality and renal function. Patient states she had a recent CTA of her chest which was negative for pulmonary embolism. I do not feel this needs to be repeated at this time. Patient also had a recent negative COVID-19, influenza, and RSV PCR. I do not feel this needs to be repeated. Lab Data Attestation: I reviewed the patient's lab results. Lab results narrative: CBC was reviewed. There is a mild leukocytosis of 12.5. Remainder is within normal limits. Basic metabolic profile was reviewed and was within normal limits. Labs: Laboratory Results - last 24 hr 12/05/23 12/05/23 19:03 20:01 WBC 12.5 H RBC 4.77 Hgb 13.2 Hct 40.4 MCV 84.7 MCH 27.7 MCHC 32.7 RDW Std Deviation 41.5 RDW Coeff of Jennifer 13.4 Plt Count 241 MPV 10.4 Immature Gran % (Auto) 0.300 Neut % (Auto) 62.2 Lymph % (Auto) 26.9 [place] % (Auto) 8.2 Eos % (Auto) 2.1 Baso % (Auto) 0.3 Absolute Neuts (auto) 7.8 H Absolute Lymphs (auto) 3.35 Nucleated RBC % 0 Sodium 137 Potassium 3.8 Chloride 105 Carbon Dioxide 27.0 Anion Gap 5 BUN 13 Creatinine 0.64 Estim Creat Clear Calc 50.74 Est GFR (MDRD) Af Amer 114 Est GFR (MDRD) Non-Af 94 BUN/Creatinine Ratio 20.2 H Glucose 119 H Calcium 8.9 Radiography Chest X-Ray - ED: 2 View, Read by ED Physician, Read by Radiologist and No Acute Disease Diagnostic Testing: Clinical Impression(s) from Imaging Studies Chest X-Ray 12/05/23 19:16 IMPRESSION: Normal x-ray examination of the chest. Electronically Signed: Stan Correa MD at 19:46 EDT , PA and lateral chest x-ray was obtained. There are 2 views. On my independent interpretation, lung blackman are clear. There is normal cardiac silhouette. Bony thorax is normal. There is no acute process noted. Radiologist also interpreted the x-ray and agrees. Treatment and Re-Evaluation :: Patient was ordered a DuoNeb aerosol. Patient refused this. Patient was advised of her findings. Patient had been on steroids recently which would account for her mild leukocytosis. I do not feel patient requires antibiotic therapy at this time. Patient was instructed to follow-up with her primary care physician in 5 to 7 days. Patient was instructed to return if worse in any way. Patient was instructed to take Tylenol or ibuprofen as needed for her pain. Patient understood and was agreeable with the plan. All questions were answered. Discharge Plan Triage Chief Complaint: Cough ED Provider: Joselito Calvillo Dx/Rx/DC Orders Clinical Impression: Dyspnea, Gastritis Instructions: ED Dyspnea, ED Gastritis (Adult) Prescriptions: No Action guaifenesin [Mucinex] 600 mg tablet extended release 12hr 600 mg PO Q12H PRN (Reason: Cough) omeprazole 20 MG capsule 20 mg PO DAILY cholecalciferol (vitamin D3) 10,000 UNIT tablet 1,250 unit PO QWEEK Patient Comments: TWICE A WEEK Rx Instructions: 1250 units Clamara Estrogen Patch 0.05 mg TRANSDERM. QWEEK hydrocodone-acetaminophen 1 TABLET tablet 1 - 2 tab PO Q4H PRN PRN (Reason: Pain) Qty: 20 0RF albuterol (refill) 90 mcg/actuation Aerosol 90 mcg INHALATION PRN PRN (Reason: SOB) d-mannose 500 mg Capsule 500 mg PO DAILY clindamycin HCl 300 mg capsule 300 mg PO BID Kenalog 10 mg/mL suspension 10 mg IM QMONTH Rx Instructions: inject into site as ten - 1 mg doses greater than or equal to 1 cm apart prednisone 50 mg tablet 50 mg PO DAILY Qty: 5 0RF Primary Care Provider: Lorena Arana Referrals: Lorena Arana DO [Primary Care Provider] - 5-7 Days Disposition Disposition: Home, Self Care
[2023-12-05 21:00] VITALS: BP 179/79; PULSE 84; PULSE 86; RESP 16; TEMP 36.1; O2SAT 99
== END 2023-12-05 21:05 | disposition home or self-care (01) ==
PROVIDERS: Emergency Provider Emergency Medicine; PCP Internal Medicine; Visit Provider Emergency Medicine
DX: R06.00 Dyspnea, unspecified (principal); K29.70 Gastritis, unspecified, without bleeding; Z87.891 Personal history of nicotine dependence; K21.9 Gastro-esophageal reflux disease without esophagitis; Z79.899 Other long term (current) drug therapy; Z90.710 Acquired absence of both cervix and uterus; Z90.49 Acquired absence of other specified parts of digestive tract
CPT/HCPCS: 71046; 80048; 85025; 99283

== ENCOUNTER → 2023-12-27 | Outpatient (CLI) | payer MEDICARE, OTHER, SELFPAY ==
--- NOTE | 2023-12-27 16:50 | RAD_ITS ---
INDICATION: SOB EXAMINATION/TECHNIQUE: X-RAY - XR Chest 2 Views COMPARISON: Prior study dated: 12/05/2023 FINDINGS: LINES/DEVICES: None. LUNGS: No consolidation, edema or effusion. No pneumothorax. MEDIASTINUM AND CARDIOVASCULAR STRUCTURES: Cardiac silhouette not enlarged. Central airways and mediastinal contour are unremarkable. BONES AND SOFT TISSUES: Postoperative changes in the right shoulder. Partially visualized fusion of the lumbar spine. Increased kyphosis of thoracic spine. RAD/Chest PA and Lateral IMPRESSION: No radiographic evidence of acute cardiopulmonary disease. Electronically Signed: Melvin Wong MD at 9:13 EDT ,
== END | disposition home or self-care (01) ==
LOC: MTRAD 16:46
PROVIDERS: PCP Internal Medicine; Referring Provider Internal Medicine Pulmonary Disease; Visit Provider Internal Medicine Pulmonary Disease
DX: R06.02 Shortness of breath (principal)
CPT/HCPCS: 71046

== ENCOUNTER 2024-02-24 23:16 | Emergency (ER) | payer MEDICARE, OTHER, SELFPAY ==
[2024-02-24 23:17] VITALS: BP 160/82; PULSE 82; RESP 18; TEMP 35.9; O2SAT 97; BMI 27.7
[2024-02-25] MEDS: 0.9% Normal Saline (500mL Bag) 500 ML 999 ML IV (00:01)
[2024-02-25] MEDS: LORazepam 2 MG/ML Syringe 0.5 MG IV (00:01)
[2024-02-25 00:23] LABS: Absolute Neutrophil Count 8.2 X10^3/uL (2.0-7.7); Basophil# 0.03 X10^3/uL; Basophil% 0.3 % (0-1); Eosinophil# 0.01 X10^3/uL; Eosinophils% 0.1 % (0-5); Hematocrit 39.8 % (37-47); Hemoglobin 13.4 g/dL (12.0-15.0); Lymphocyte % 19.7 % (19-41); Mean Corp Hgb Conc 33.7 g/dL (32-36); Mean Corpuscular Hgb 28.6 pg (27.0-32.0); Mean Platelet Vol. 10.9 fl (6.2-12.0); Monocyte# 0.62 X10^3/uL; Monocyte% 5.5 % (0-10); NRBC Flagged by Analyzer 0 % (0-5); Neutrophil % 73.2 % (47-70); Platelet Count 280 K/mm3 (150-450); RBC Distribution Width CV 12.9 % (11.6-14.6); RBC Distribution Width SD 39.7 fl (35.1-43.9); Red Blood Count 4.68 M/mm3 (4.2-5.4); White Blood Count 11.2 K/mm3 (4.4-11.0)
[2024-02-25 00:30] VITALS: O2SAT 97
[2024-02-25 00:31] LABS: Anion Gap 6 (5-15); BUN 14 mg/dL (7-18); BUN/Creat Ratio 18.4 RATIO (10-20); Calcium,Total 9.6 mg/dL (8.5-10.1); Chloride 106 mmol/L (98-107); Creatinine, Serum 0.76 mg/dL (0.55-1.02); EST Glomerular Filtration Rate 78 mL/min (>60); Est Glom Filt Rate - Afr Amer 94 mL/min (>60); Glucose 201 mg/dL (74-106); Magnesium 2.1 mg/dL (1.6-2.6); Potassium 4.3 mmol/L (3.5-5.1); Sodium Level 137 mmol/L (136-145)
[2024-02-25 01:08] LABS: BNP,B-Type NATRIURETIC PEPTIDE 98.9 pg/mL (0-100)
--- NOTE | 2024-02-25 01:19 | EX.ED.DYSGE1 ---
HPI History of Present Illness Chief Complaint: Shortness of Breath Informant: patient and spouse/S.O. Narrative Narrative: Patient is a 78-year-old female with history of GERD and asthma who reports that she has been feeling short of breath. She states has been feeling this way for multiple weeks and that she has been monitoring her pulse ox at home and despite her shortness of breath sensation the lowest the reads is 93%. She states she has had an EGD which showed polyps of her stomach and gastritis. She states she has had multiple x-rays which revealed no sign of infection or lung pathology. She states that she has been using her inhaler but despite this has not had any improvement of her symptoms. She states that the symptoms seem to worsen at night and she does feel better if she gets up and walks around the house. She denies any sick symptoms or chest pain associated with this. She denies any history of congestive heart failure. She states that this evening she was having difficulty sleeping because of the recurrent shortness of breath sensation and therefore comes in for evaluation [facility] Medical History Bladder mass Loss of hearing Wears contact lenses History of steroid therapy Bladder disease Fatty liver Back pain Migraine headache History of hiatal hernia History of diverticulitis Pneumonia Gastric reflux Former smoker Atelectasis of both lungs Shortness of breath on exertion Leg cramps History of edema History of echocardiogram History of stress test Pain Left foot pain Left ankle pain Hay fever Arthritis Home Medications ?Medication ?Instructions ?Recorded ?Last Taken ?Type omeprazole 20 mg capsule,delayed 40 mg PO DAILY 11/08/13 09/24/18 History release Clamara Estrogen Patch 0.05 mg TRANSDERM. QWEEK 11/15/14 09/24/18 History cholecalciferol (vitamin D3) 250 1,250 unit PO QWEEK 11/15/14 09/24/18 History mcg (10,000 unit) tablet hydrocodone-acetaminophen 5-325mg 1 - 2 tab (1 - 2 x 5-325 mg) PO 11/22/14 09/24/18 Rx 5mg-325mg Q4H PRN PRN Pain #20 TABLETS guaifenesin 600 mg tablet, 600 mg PO Q12H PRN Cough 01/22/21 Unknown History extended release 12 hr (Mucinex) albuterol (refill) 90 90 mcg inhalation PRN PRN SOB 11/30/21 Unknown History mcg/actuation aerosol inhaler montelukast 10 mg tablet 10 mg PO DAILY 02/24/24 Unknown History prednisone 50 mg tablet 40 mg PO DAILY 02/24/24 Unknown History sucralfate 1 gram tablet 1 g PO TID 02/24/24 Unknown History lorazepam 1 mg tablet (Ativan) 1 mg PO QHS PRN sleep 10 days #10 02/25/24 Unknown Rx tabs Allergy/AdvReac Type Severity Reaction Status Date / Time gabapentin Allergy Rash Verified 02/24/24 23:22 Iodinated Contrast Media Allergy Hives Verified 02/24/24 23:22 (Iodinated Contrast Media - IV Dye) tetracycline (Tetracycline) Allergy Hives Verified 02/24/24 23:22 Surgical History H/O: hysterectomy Hx of arthroplasty Hx of bladder repair surgery Hx of cholecystectomy Hx of laparoscopy Hx of nasal septoplasty Social History Smoking Status: Former smoker alcohol intake: never ROS ROS ED Constitutional Constitutional ED: Denies chills or fever(s) ENT ENT ED: Reports rhinorrhea; Denies sore throat Cardiovascular Cardiovascular: Denies chest pain Respiratory/Chest Respiratory/Chest: Reports dyspnea; Denies cough Gastrointestinal Gastrointestinal: Denies abdominal pain, diarrhea, nausea or vomiting Genitourinary Genitourinary ED: Denies dysuria Musculoskeletal Musculoskeletal: Denies myalgias Integumentary Denies rash Neurologic Neurologic: Denies headache(s) Hematologic/Lymphatic Hematologic/Lymphatic: Denies easy bleeding or easy bruising Allergic/Immunologic Allergic/Immunologic ED: Denies mouth swelling or tongue swelling EXAM Physical Exam Const Vital Signs: 02/24/24 23:17 02/25/24 00:30 02/25/24 01:30 Temperature 96.7 F L 98.0 F Temperature Source Temporal Pulse Rate 82 75 Respiratory Rate 18 18 Respiratory Effort Normal Respiratory Depth Normal Respiratory Pattern Normal Blood Pressure 160/82 H 140/71 H Blood Pressure Mean 108 94 Pulse Ox 97 100 Oxygen Delivery Method Room Air Room Air Positive well nourished and well developed General Appearance ED: well developed; Negative for pallor HEENT HEENT Narrative: No tongue or lip swelling no oral lesions no airway edema or compromise No signs of infection noted in the posterior pharynx Eyes PERRL and EOMs intact bilaterally General Eye ED: Negative for pale conjunctiva or scleral icterus Neck supple and no JVD Neck Narrative: No crepitance palpated Chest Wall palpation of chest normal Resp normal respiratory effort and clear to auscultation bilaterally Resp Narrative: No nasal flaring retractions tachypnea or accessory muscle use Patient can talk in full sentences without any dyspnea Cardio regular rate and regular rhythm GI normal to inspection, nondistended, normoactive bowel sounds, non-tender, non-distended and no masses Auscultation: normoactive bowel sounds Palpation: soft Extremity normal to inspection Extremity Narrative: No asymmetric edema no pitting edema negative Homans' sign bilaterally Neuro oriented x3, CN's II-XII intact bilaterally and no sensory deficits noted Sensorium / Orientation: alert Motor Exam: strength 5/5 throughout Psych Psych Narrative: Patient has a nervous/anxious affect Skin no rashes or lesions noted General Skin Exam: Negative for jaundice or pallor MDM MDM MDM Narrative Medical decision making narrative: Patient arrived to the ER mildly hypertensive otherwise with stable vitals. She reported recurrent shortness of breath sensation mainly at night. Differential diagnosis is for pneumonia versus pneumothorax versus pleural effusion versus acute blood loss anemia versus acute kidney injury versus congestive heart failure. I discussed with patient the need for chest x-ray to evaluate her shortness of breath sensation but she states she has had multiple x-rays recently which have not shown any type of reason for her shortness of breath and therefore does not want another one at this time. Therefore basic labs were obtained to check for anemia acute kidney injury or electrolyte abnormality or congestive heart failure. Labs revealed no clinically significant findings either. By exam I feel her shortness of breath is multifactorial and is related to her postnasal drip her gastritis and I also feel that she is extremely nervous or anxious which worsens her symptoms as they do seem to improve when she is distracted. Therefore at this time as her workup is negative and her pulse ox is 97 to 100% on room air and she does not have any signs of respiratory distress I will try her on Ativan to see if this helps control her shortness of breath as I do feel it is more anxiety in nature and she is otherwise safe for discharge History & Record Review Discussion w/independent historian: Patient and Significant other Lab Data Attestation: I reviewed the patient's lab results. Labs: Laboratory Results - last 24 hr 02/24/24 23:50 WBC 11.2 H RBC 4.68 Hgb 13.4 Hct 39.8 MCV 85.0 MCH 28.6 MCHC 33.7 RDW Std Deviation 39.7 RDW Coeff of Jennifer 12.9 Plt Count 280 MPV 10.9 Immature Gran % (Auto) 1.200 H Neut % (Auto) 73.2 H Lymph % (Auto) 19.7 [place] % (Auto) 5.5 Eos % (Auto) 0.1 Baso % (Auto) 0.3 Absolute Neuts (auto) 8.2 H Absolute Lymphs (auto) 2.20 Nucleated RBC % 0 Sodium 137 Potassium 4.3 Chloride 106 Carbon Dioxide 25.0 Anion Gap 6 BUN 14 Creatinine 0.76 Estim Creat Clear Calc 51.80 Est GFR (MDRD) Af Amer 94 Est GFR (MDRD) Non-Af 78 BUN/Creatinine Ratio 18.4 Glucose 201 H Calcium 9.6 Magnesium 2.1 B-Natriuretic Peptide 98.9 Discharge Plan Triage Chief Complaint: Shortness of Breath ED Provider: Alejo Palmer Dx/Rx/DC Orders Clinical Impression: Dyspnea, Anxiety, GERD (gastroesophageal reflux disease) Instructions: ED Dyspnea Prescriptions: New lorazepam [Ativan] 1 mg tablet 1 mg PO QHS PRN (Reason: sleep) 10 Days Qty: 10 0RF No Action guaifenesin [Mucinex] 600 mg tablet extended release 12hr 600 mg PO Q12H PRN (Reason: Cough) omeprazole 20 MG capsule 40 mg PO DAILY cholecalciferol (vitamin D3) 10,000 UNIT tablet 1,250 unit PO QWEEK Patient Comments: TWICE A WEEK Rx Instructions: 1250 units Clamara Estrogen Patch 0.05 mg TRANSDERM. QWEEK hydrocodone-acetaminophen 1 TABLET tablet 1 - 2 tab PO Q4H PRN PRN (Reason: Pain) Qty: 20 0RF albuterol (refill) 90 mcg/actuation Aerosol 90 mcg INHALATION PRN PRN (Reason: SOB) montelukast 10 mg tablet 10 mg PO DAILY sucralfate 1 gram tablet 1 g PO TID prednisone 50 mg tablet 40 mg PO DAILY Primary Care Provider: Lorena Arana Referrals: Lorena Arana, [Primary Care Provider] - Print Language: Czech Disposition Disposition: Home, Self Care Discharge Date/Time: 02/25/24 01:44
[2024-02-25 01:30] VITALS: BP 140/71; PULSE 75; RESP 18; TEMP 36.7; O2SAT 100
[2024-02-25] MEDS: LORazepam 1 MG Tablet PO (01:33)
== END 2024-02-25 01:44 | disposition home or self-care (01) ==
PROVIDERS: Emergency Provider Emergency Medicine; PCP Internal Medicine; Visit Provider Emergency Medicine
DX: R06.09 Other forms of dyspnea (principal); K21.9 Gastro-esophageal reflux disease without esophagitis; K31.7 Polyp of stomach and duodenum; F41.9 Anxiety disorder, unspecified; K29.70 Gastritis, unspecified, without bleeding; Z87.891 Personal history of nicotine dependence; Z90.49 Acquired absence of other specified parts of digestive tract
CPT/HCPCS: 80048; 83735; 83880; 85025; 96374; 99283

== ENCOUNTER 2024-03-04 09:48 | Emergency (ER) | payer MEDICARE, OTHER, SELFPAY ==
[2024-03-04 09:49] VITALS: BP 181/76; PULSE 72; RESP 18; TEMP 36.6; O2SAT 99
[2024-03-04 09:52] VITALS: BMI 27.1
--- NOTE | 2024-03-04 10:05 | EX.ED.DYSGE1 ---
HPI History of Present Illness Chief Complaint: Constipation [facility] Medical History Bladder mass Loss of hearing Wears contact lenses History of steroid therapy Bladder disease Fatty liver Back pain Migraine headache History of hiatal hernia History of diverticulitis Pneumonia Gastric reflux Former smoker Atelectasis of both lungs Shortness of breath on exertion Leg cramps History of edema History of echocardiogram History of stress test Pain Left foot pain Left ankle pain Hay fever Arthritis Home Medications ?Medication ?Instructions ?Recorded ?Last Taken ?Type omeprazole 20 mg capsule,delayed 40 mg PO DAILY 11/08/13 09/24/18 History release Clamara Estrogen Patch 0.05 mg TRANSDERM. QWEEK 11/15/14 09/24/18 History cholecalciferol (vitamin D3) 250 1,250 unit PO QWEEK 11/15/14 09/24/18 History mcg (10,000 unit) tablet hydrocodone-acetaminophen 5-325mg 1 - 2 tab (1 - 2 x 5-325 mg) PO 11/22/14 09/24/18 Rx 5mg-325mg Q4H PRN PRN Pain #20 TABLETS guaifenesin 600 mg tablet, 600 mg PO Q12H PRN Cough 01/22/21 Unknown History extended release 12 hr (Mucinex) albuterol (refill) 90 90 mcg inhalation PRN PRN SOB 11/30/21 Unknown History mcg/actuation aerosol inhaler montelukast 10 mg tablet 10 mg PO DAILY 02/24/24 Unknown History prednisone 50 mg tablet 40 mg PO DAILY 02/24/24 Unknown History sucralfate 1 gram tablet 1 g PO TID 02/24/24 Unknown History lorazepam 1 mg tablet (Ativan) 1 mg PO QHS PRN sleep 10 days #10 02/25/24 Unknown Rx tabs docusate sodium 100 mg capsule 100 mg PO DAILY #14 caps 03/04/24 Unknown Rx (Colace) ondansetron 4 mg disintegrating 4 mg PO Q8H PRN PRN Nausea #10 tabs 03/04/24 Unknown Rx tablet polyethylene glycol 3350 17 17 g PO DAILY 14 days #238 grams 03/04/24 Unknown Rx gram/dose oral powder (Miralax) sennosides 8.6 mg capsule (senna) 8.6 mg PO DAILY #14 caps 03/04/24 Unknown Rx Allergy/AdvReac Type Severity Reaction Status Date / Time gabapentin Allergy Rash Verified 03/04/24 09:52 Iodinated Contrast Media Allergy Hives Verified 03/04/24 09:52 (Iodinated Contrast Media - IV Dye) tetracycline (Tetracycline) Allergy Hives Verified 03/04/24 09:52 Surgical History H/O: hysterectomy Hx of arthroplasty Hx of bladder repair surgery Hx of cholecystectomy Hx of laparoscopy Hx of nasal septoplasty Social History Smoking Status: Former smoker alcohol intake: never EXAM Physical Exam Const Vital Signs: 03/04/24 09:49 03/04/24 11:48 Temperature 97.9 F Temperature Source Temporal Pulse Rate 72 71 Respiratory Rate 18 16 Blood Pressure 181/76 H 157/70 H Blood Pressure Mean 111 99 Pulse Ox 99 99 Oxygen Delivery Method Room Air Room Air MDM MDM MDM Narrative Medical decision making narrative: HISTORY OF PRESENT ILLNESS: 78-year-old female presents with constipation. Notes my results over the last 2 weeks. Last bowel movement was on 03/02/2024. Notes just a little bit of brown stool. Denies melena hematochezia. Denies history of abdominal surgery. No she has been very anxious given she cannot have a bowel movement. Notes last dose of narcotic pain medicine was this morning. Notes for the last 2 weeks she has had no results after taking Colace for the first 5 days, then switching to milk of magnesia which she took intermittently for the last 7 days, notes try MiraLAX last 2 days without any results. She denies urinary complaints. Denies fever. REVIEW OF SYSTEMS: Pertinent positives: Constipation Pertinent negatives: Vomiting, fever, chest pain, shortness of breath PHYSICAL EXAM: Nursing triage notes reviewed, Vital signs reviewed Constitutional: please see mdm HENT: MMM Eyes: Pupils equal round and reactive to light, Extraocular muscles intact Neck: No stridor, no JVD, full neck ROM Lungs: Clear to auscultation, No wheezing or rales. No increased work of breathing, no conversational dyspnea, no accessory muscle use, no nasal flaring. No respiratory distress noted Heart: Regular rate and rhythm, No murmurs, No rubs and No gallops, 2+ distal pulses (radial, femoral, posterior tibial) in all extremities Abdomen: Soft, there is no tenderness, rigidity, rebound or guarding, no obvious peritoneal signs, no palpable pulsatile abdominal masses, no auscultated abdominal bruit : No CVAT Extremities: No edema Neuro: No focal neurological deficits, cranial nerves II through XII intact, 5/5 strength in all extremities. Intact sensation to light touch in all extremities, 2+ reflexes bilateral patella tendons. Normal gait. No ataxia. Skin: No rash or lesions noted MEDICAL DECISION MAKING: Chief Complaint: Constipation External records reviewed: Imaging reviewed: CT scan abdomen pelvis from 2017 shows colitis, no small bowel obstruction Factors affecting care: Currently on narcotic therapy, GERD, bladder mass Social determinants of health: Elderly History obtained from others: n the patient's Consults: None at this time MDM Narrative: Patient was initially hypertensive otherwise hemodynamically stable afebrile and nontoxic-appearing. Abdominal exam soft and nontender. Patient was in no acute distress I considered the following differential diagnosis: Small bowel obstruction, narcotic constipation, electrolyte abnormality I obtained a broad lab and imaging workup to further elucidate the etiology the patient can. I treat the patient's symptoms with IV Toradol, Zofran, IV fluids and Atarax to control anxiety. ALL IMAGES (IF OBTAINED) HAVE BEEN PERSONALLY REVIEWED AND INTERPRETED BY MYSELF. CBC with leukocytosis suggestive of systemic inflammation, no anemia or thrombocytopenia noted Lipase is wnl indicating no pancreatic inflammation. Lactate is wnl indicating no end-organ hypoperfusion and/or hypoxia. BMP without evidence of significant electrolyte abnormalities, no anion gap, no acute kidney injury. LFTs with slight elevation in bilirubin however baseline elevated liver enzymes (these are likely noncontributory as patient has no right upper quadrant tenderness, has no jaundice, no Caba sign, and the abnormalities are essentially baseline) CT scan abdomen pelvis shows no evidence of obvious fecal impaction, bowel obstruction or other acute surgical pathology abdomen or pelvis On repeat evaluation patient blood pressure improved to 157/70. Abdominal exam remained benign. Is appropriate for discharge home The synthesis of the patient's history, physical exam, labs images suggest no acute life-limiting etiology. I believe her etiology is secondary to narcotic induced constipation. As such I gave her a bowel regimen, instructions to increase roughage and fiber in her diet, instructions on when to return. The patient and/or family, caregivers express understanding. The patient and/or family, caregivers agrees with the plan. Shared decision making: I will have a discussion with the patient and or visitors regarding risk/benefits of further testing or admission. They will be made aware of of the risk/benefits inherent in this decision they will be given the opportunity to voice understanding. Total critical care time today provided was at least 0 minutes. This excludes separately billable procedures. Critical care time (if documented) is secondary to the patient having high probability of clinically significant/life threatening deterioration in the patient's condition which required my urgent intervention. Impression: 1. Constipation 2. Leukocytosis 3. Narcotic induced constipation Dispo: Discharge home This note was generated with [employer] dictation software. It may contain incorrect words, spelling, and punctuation that were not noted in review of the chart prior to signing. Lab Data Labs: Laboratory Results - last 24 hr 03/04/24 10:55 WBC 12.6 H RBC 5.16 Hgb 14.4 Hct 44.4 MCV 86.0 MCH 27.9 MCHC 32.4 RDW Std Deviation 40.0 RDW Coeff of Jennifer 12.8 Plt Count 276 MPV 10.6 Immature Gran % (Auto) 0.400 Neut % (Auto) 65.5 Lymph % (Auto) 24.5 [place] % (Auto) 7.8 Eos % (Auto) 1.4 Baso % (Auto) 0.4 Absolute Neuts (auto) 8.3 H Absolute Lymphs (auto) 3.10 Nucleated RBC % 0 Sodium 137 Potassium 4.2 Chloride 106 Carbon Dioxide 25.0 Anion Gap 6 BUN 12 Creatinine 0.66 Est GFR (MDRD) Af Amer 111 Est GFR (MDRD) Non-Af 91 BUN/Creatinine Ratio 18.1 Glucose 179 H Lactic Acid 1.1 Calcium 9.4 Total Bilirubin 1.20 H AST 39 H ALT 60 H Alkaline Phosphatase 111 Total Protein 7.6 Albumin 3.7 Globulin 3.9 Albumin/Globulin Ratio 0.9 Lipase 27 Radiography Diagnostic Testing: Clinical Impression(s) from Imaging Studies Abdomen CT 03/04/24 10:35 IMPRESSION: 1. Medium-sized hiatal hernia. 2. Status post L4-L5 posterior fusion and L5 laminectomy change. Anterolisthesis of L4 upon L5. Degenerative changes in the spine. 3. Urinary bladder distention may be transient/physiologic. Follow-up clinically. 4. No evidence of bowel obstruction or significant colonic stool retention. 5. Colonic diverticulosis without discrete evidence of acute diverticulitis. Electronically Signed: Denis Chao DO at 12:47 EDT , Discharge Plan Triage Chief Complaint: Constipation ED Provider: Ozzie Oneill Dx/Rx/DC Orders Clinical Impression: Acute constipation Instructions: ED Constipation (Adult) Prescriptions: New polyethylene glycol 3350 [Miralax] 17 gram/dose powder 17 g PO DAILY 14 Days Qty: 238 0RF docusate sodium [Colace] 100 mg capsule 100 mg PO DAILY Qty: 14 0RF senna 8.6 mg capsule 8.6 mg PO DAILY Qty: 14 0RF ondansetron 4 mg tablet,disintegrating 4 mg PO Q8H PRN PRN (Reason: Nausea) Qty: 10 0RF No Action guaifenesin [Mucinex] 600 mg tablet extended release 12hr 600 mg PO Q12H PRN (Reason: Cough) omeprazole 20 MG capsule 40 mg PO DAILY cholecalciferol (vitamin D3) 10,000 UNIT tablet 1,250 unit PO QWEEK Patient Comments: TWICE A WEEK Rx Instructions: 1250 units Clamara Estrogen Patch 0.05 mg TRANSDERM. QWEEK hydrocodone-acetaminophen 1 TABLET tablet 1 - 2 tab PO Q4H PRN PRN (Reason: Pain) Qty: 20 0RF albuterol (refill) 90 mcg/actuation Aerosol 90 mcg INHALATION PRN PRN (Reason: SOB) montelukast 10 mg tablet 10 mg PO DAILY sucralfate 1 gram tablet 1 g PO TID prednisone 50 mg tablet 40 mg PO DAILY lorazepam [Ativan] 1 mg tablet 1 mg PO QHS PRN (Reason: sleep) 10 Days Qty: 10 0RF Primary Care Provider: Lorena Arana Referrals: Lorena Arana DO [Primary Care Provider] - Activity Restrictions/Additional Instructions: Thank you for trusting us with your care today! Your labs images were reassuring for small bowel obstruction or large fecal impaction. I believe you are suffering from narcotic induced constipation. While taking narcotics need to be on a very strict bowel regimen. This includes Colace, senna and MiraLAX taken daily every day in addition to this he should increase the amount of roughage or fiber in your diet I recommend obtaining fiber 1 cereal and eating a bowl of this daily. This regimen with fiber 1 cereal, increase roughage, Colace, senna and MiraLAX will produce regular stools. If you been constipated for 2 weeks do not expect to be regular in 1 to 2 days but daily usage of the bowel regiment will produce desired effect in approximately 2 weeks. Please take Tylenol (2 pills, 650 mg), ibuprofen (2 pills, 400 mg) every 6 hours as needed for pain and fever control. Please return to the emergency department if your symptoms change or worsen. Please follow with your primary care physician for further outpatient evaluation and management. Print Language: Togolese Disposition Disposition: Home, Self Care
--- NOTE | 2024-03-04 10:35 | CT_ITS ---
EXAM: CT ABDOMEN AND PELVIS WITHOUT INTRAVENOUS CONTRAST CLINICAL INDICATION: Constipation TECHNIQUE: Helically acquired images were obtained of the abdomen and pelvis without intravenous contrast. This CT exam was performed using one or more of the following dose reduction techniques: automated exposure control, adjustment of the mA and/or kV according to patient size, and/or use of iterative reconstruction technique. CONTRAST: Oral contrast only. COMPARISON: CTA chest, 11/30/2023 FINDINGS: LOWER THORAX: Coronary artery calcifications. Medium-sized hiatal hernia. Minimal basilar atelectasis and/or scarring. No cardiomegaly. No significant pericardial effusion. ABDOMEN: LIVER: No significant abnormality. Homogeneous. GALLBLADDER AND BILE DUCTS: Status post cholecystectomy. No intra- or extrahepatic biliary ductal dilation. PANCREAS: No significant abnormality. No focal cystic mass. SPLEEN: No significant abnormality. Normal size without focal cystic or solid mass. ADRENALS: No significant abnormality. No nodules. KIDNEYS AND URETERS: No significant abnormality. Normal renal size and position. No hydronephrosis. STOMACH AND BOWEL: Colonic diverticulosis without discrete evidence of acute diverticulitis. No stomach or bowel distention. PELVIS: APPENDIX: No evidence of acute appendicitis. BLADDER: Urinary bladder distention may be transient/physiologic. REPRODUCTIVE: Status post hysterectomy. ABDOMEN and PELVIS: INTRAPERITONEAL SPACE: No significant abnormality. No ascites or other fluid collection. No free air. BONES/JOINTS: Status post L4-L5 posterior fusion and L5 laminectomy change. Anterolisthesis of L4 upon L5. Degenerative changes in the spine. No suspicious lytic or blastic abnormality. SOFT TISSUES: No significant abnormality. No discrete abdominal or pelvic wall hernia. VASCULATURE: Atherosclerosis of the aorta and its branch vessels. LYMPH NODES: No significant abnormality. No enlarged lymph nodes. CT/Abdomen/Pel W ORAL Cont Only IMPRESSION: 1. Medium-sized hiatal hernia. 2. Status post L4-L5 posterior fusion and L5 laminectomy change. Anterolisthesis of L4 upon L5. Degenerative changes in the spine. 3. Urinary bladder distention may be transient/physiologic. Follow-up clinically. 4. No evidence of bowel obstruction or significant colonic stool retention. 5. Colonic diverticulosis without discrete evidence of acute diverticulitis. Electronically Signed: Denis Chao DO at 12:47 EDT ,
[2024-03-04] MEDS: 0.9% Normal Saline (1000mL) 1,000 ML 999 ML IV (10:56)
[2024-03-04 11:02] LABS: Absolute Neutrophil Count 8.3 X10^3/uL (2.0-7.7); Basophil# 0.05 X10^3/uL; Basophil% 0.4 % (0-1); Eosinophil# 0.18 X10^3/uL; Eosinophils% 1.4 % (0-5); Hematocrit 44.4 % (37-47); Hemoglobin 14.4 g/dL (12.0-15.0); Lymphocyte % 24.5 % (19-41); Mean Corp Hgb Conc 32.4 g/dL (32-36); Mean Corpuscular Hgb 27.9 pg (27.0-32.0); Mean Platelet Vol. 10.6 fl (6.2-12.0); Monocyte# 0.98 X10^3/uL; Monocyte% 7.8 % (0-10); NRBC Flagged by Analyzer 0 % (0-5); Neutrophil # 8.27 X10^3/uL (2.7-7.7); Neutrophil % 65.5 % (47-70); Platelet Count 276 K/mm3 (150-450); RBC Distribution Width CV 12.8 % (11.6-14.6); Red Blood Count 5.16 M/mm3 (4.2-5.4); White Blood Count 12.6 K/mm3 (4.4-11.0)
[2024-03-04] MEDS: hydrOXYzine 10 MG Tablet PO (11:17)
[2024-03-04 11:22] LABS: ALB/GLOB Ratio 0.9 RATIO (0.9-2.4); AST(SGOT) 39 U/L (15-37); Alanine Aminotransfer ALT/SGPT 60 U/L (13-56); Albumin, Serum 3.7 g/dL (3.2-5.0); Alkaline Phosphatase 111 U/L (45-117); Anion Gap 6 (5-15); BUN 12 mg/dL (7-18); BUN/Creat Ratio 18.1 RATIO (10-20); Calcium,Total 9.4 mg/dL (8.5-10.1); Chloride 106 mmol/L (98-107); Creatinine, Serum 0.66 mg/dL (0.55-1.02); EST Glomerular Filtration Rate 91 mL/min (>60); Est Glom Filt Rate - Afr Amer 111 mL/min (>60); Globulin 3.9 g/dL (2.2-4.2); Glucose 179 mg/dL (74-106); Lipase 27 U/L (13-75); Potassium 4.2 mmol/L (3.5-5.1); Protein, Total 7.6 g/dL (6.4-8.2); Sodium Level 137 mmol/L (136-145)
[2024-03-04 11:34] LABS: Lactic Acid 1.1 mmol/L (0.4-1.9)
[2024-03-04 11:48] VITALS: BP 157/70; PULSE 71; RESP 16; O2SAT 99
[2024-03-04 13:00] VITALS: BP 137/64; PULSE 79; RESP 16; O2SAT 94
[2024-03-04 13:08] VITALS: BP 137/64; PULSE 79; RESP 16; TEMP 36; O2SAT 94
== END 2024-03-04 13:21 | disposition home or self-care (01) ==
PROVIDERS: Emergency Provider Emergency Medicine; PCP Internal Medicine; Visit Provider Emergency Medicine
DX: K59.03 Drug induced constipation (principal); T40.605A Adverse effect of unspecified narcotics, initial encounter; K21.9 Gastro-esophageal reflux disease without esophagitis; N32.9 Bladder disorder, unspecified; D72.829 Elevated white blood cell count, unspecified; Z87.891 Personal history of nicotine dependence
CPT/HCPCS: 74176; 80053; 83605; 83690; 85025; 96360; 96361; 99282; A4216; J2405

== ENCOUNTER → 2024-03-05 | Outpatient (CLI) | payer MEDICARE, OTHER, SELFPAY ==
--- NOTE | 2024-03-05 13:30 | RAD_ITS ---
PROCEDURE: Sniff test. DATE OF EXAMINATION: March 05, 2024. INDICATION: Female, 78 years old. Shortness of breath. PHYSICIAN: Dr. Sanders FLUOROSCOPY TIME (if supplied): (31 seconds) minutes/seconds. 9.8 mGy. A cine loop of 245 images was recorded. Normal movement of the right and left hemidiaphragm RAD/Fluoroscopy 1 Hr or Less IMPRESSION: Normal movement of the right and left hemidiaphragms. Electronically Signed: Kale Sanders MD at 15:02 EDT ,
== END | disposition home or self-care (01) ==
LOC: RAD 13:19
PROVIDERS: PCP Internal Medicine; Referring Provider Internal Medicine Pulmonary Disease; Visit Provider Internal Medicine Pulmonary Disease
DX: R06.02 Shortness of breath (principal)
CPT/HCPCS: 76000

== ENCOUNTER 2024-06-28 01:52 | Inpatient (IN) | payer MEDICARE, OTHER, SELFPAY ==
[2024-06-28] VITALS (15 sets, daily range): BP systolic 115–183; BP diastolic 59–114; PULSE 64–160; RESP 12–24; TEMP 36.3–36.9; O2SAT 93–98; BMI 12.7; BMI 27.8; BMI 28.3
--- NOTE | 2024-06-28 02:04 | RAD_ITS ---
INDICATION: chest pain EXAMINATION/TECHNIQUE: X-RAY - XR Chest 2 Views COMPARISON: 01/19/2024 chest radiograph. Findings: Frontal and lateral views of the chest. LUNG PARENCHYMA: No acute focal airspace disease or mass lesion. PLEURA: No pleural effusion. No pneumothorax. HEART/GREAT VESSELS: Cardiomediastinal silhouette is unremarkable. BONES: Osseous structures are unremarkable for age. RAD/Chest PA and Lateral IMPRESSION: Chest with no acute disease. Electronically Signed: Darrius Day MD at 4:15 EST ,
[2024-06-28 02:19] LABS: Absolute Lymphocyte Count 2.56 X10^3/uL (0.83-4.51); Absolute Neutrophil Count 4.9 X10^3/uL (2.0-7.7); Basophil# 0.06 X10^3/uL; Basophil% 0.7 % (0-1); Eosinophil# 0.38 X10^3/uL; Eosinophils% 4.3 % (0-5); Hematocrit 41.2 % (37-47); Hemoglobin 13.9 g/dL (12.0-15.0); Lymphocyte # 2.56 X10^3/ul (0.83-4.51); Mean Corp Hgb Conc 33.7 g/dL (32-36); Mean Corpuscular Hgb 28.7 pg (27.0-32.0); Mean Corpuscular Volume 84.9 fL (81-99); Mean Platelet Vol. 10.6 fl (6.2-12.0); Monocyte# 0.88 X10^3/uL; NRBC Flagged by Analyzer 0 % (0-5); Neutrophil # 4.92 X10^3/uL (2.7-7.7); Neutrophil % 55.7 % (47-70); Platelet Count 229 K/mm3 (150-450); RBC Distribution Width SD 40.4 fl (35.1-43.9); Red Blood Count 4.85 M/mm3 (4.2-5.4); White Blood Count 8.8 K/mm3 (4.4-11.0)
[2024-06-28] MEDS: Adenosine 6 MG/2 ML Syringe IV (02:19)
[2024-06-28] MEDS: Adenosine 6 MG/2 ML Syringe 12 MG IV (02:21)
[2024-06-28 02:41] LABS: Anion Gap 7 (5-15); BUN 13 mg/dL (7-18); BUN/Creat Ratio 17.4 RATIO (10-20); Calcium,Total 8.9 mg/dL (8.5-10.1); Chloride 107 mmol/L (98-107); Creatinine, Serum 0.75 mg/dL (0.55-1.02); EST Glomerular Filtration Rate 79 mL/min (>60); Est Glom Filt Rate - Afr Amer 96 mL/min (>60); Estimated Creatinine Clearance 28.42 ml/min; Glucose 223 mg/dL (74-106); Magnesium 2.1 mg/dL (1.6-2.6); Potassium 3.8 mmol/L (3.5-5.1); Sodium Level 140 mmol/L (136-145); Troponin-I HS (w/2H Reflex) 14 pg/mL (3.0-54.0)
[2024-06-28 03:23] LABS: BNP,B-Type NATRIURETIC PEPTIDE 50.3 pg/mL (0-100)
--- NOTE | 2024-06-28 03:45 | EDS_ITS ---
HPI History of Present Illness Chief Complaint: Chest Pain Narrative Narrative: Patient is a 78-year-old female past medical history bladder mass, arthritis, diverticulitis who presented to the emergency department with a chief complaint of feeling like her heart was racing. Patient states that this has been going on for a significant mount of time and states that has been worsening recently. Patient states that she had an EKG about a week ago and noted that this was normal although she was not feeling her symptoms at that point time. States that periodically she feels like her heart is racing in her chest. Patient notes that she had an appointment with her primary care physician earlier today and everything was normal. She states that later this afternoon and this evening she felt like her heart rate went very fast and heart was racing her chest she states that she has shortness of breath associated with this therefore she came here for further evaluation management. Patient denies any recent travel history denies any history of blood clots. Patient denies any chest pain. [facility] Medical History Bladder mass Loss of hearing Wears contact lenses History of steroid therapy Bladder disease Fatty liver Back pain Migraine headache History of hiatal hernia History of diverticulitis Pneumonia Gastric reflux Former smoker Atelectasis of both lungs Shortness of breath on exertion Leg cramps History of edema History of echocardiogram History of stress test Pain Left foot pain Left ankle pain Hay fever Arthritis Home Medications ?Medication ?Instructions ?Recorded ?Last Taken ?Type omeprazole 20 mg capsule,delayed 40 mg PO DAILY 11/08/13 09/24/18 History release Clamara Estrogen Patch 0.05 mg TRANSDERM. QWEEK 11/15/14 09/24/18 History cholecalciferol (vitamin D3) 250 1,250 unit PO QWEEK 11/15/14 09/24/18 History mcg (10,000 unit) tablet hydrocodone-acetaminophen 5-325mg 1 - 2 tab (1 - 2 x 5-325 mg) PO 11/22/14 09/24/18 Rx 5mg-325mg Q4H PRN PRN Pain #20 TABLETS guaifenesin 600 mg tablet, 600 mg PO Q12H PRN Cough 01/22/21 Unknown History extended release 12 hr (Mucinex) albuterol (refill) 90 90 mcg inhalation PRN PRN SOB 11/30/21 Unknown History mcg/actuation aerosol inhaler montelukast 10 mg tablet 10 mg PO DAILY 02/24/24 Unknown History prednisone 50 mg tablet 40 mg PO DAILY 02/24/24 Unknown History sucralfate 1 gram tablet 1 g PO TID 02/24/24 Unknown History lorazepam 1 mg tablet (Ativan) 1 mg PO QHS PRN sleep 10 days #10 02/25/24 Unknown Rx tabs docusate sodium 100 mg capsule 100 mg PO DAILY #14 caps 03/04/24 Unknown Rx (Colace) hydroxyzine HCl 10 mg tablet 10 mg PO QHS #30 tabs 03/04/24 Unknown Rx ondansetron 4 mg disintegrating 4 mg PO Q8H PRN PRN Nausea #10 tabs 03/04/24 Unknown Rx tablet polyethylene glycol 3350 17 17 g PO DAILY 14 days #238 grams 03/04/24 Unknown Rx gram/dose oral powder (Miralax) sennosides 8.6 mg capsule (senna) 8.6 mg PO DAILY #14 caps 03/04/24 Unknown Rx Allergy/AdvReac Type Severity Reaction Status Date / Time gabapentin Allergy Rash Verified 06/28/24 01:53 Iodinated Contrast Media Allergy Hives Verified 06/28/24 01:53 (Iodinated Contrast Media - IV Dye) tetracycline (Tetracycline) Allergy Hives Verified 06/28/24 01:53 Surgical History Hx of nasal septoplasty Hx of bladder repair surgery Hx of arthroplasty Hx of laparoscopy Hx of cholecystectomy H/O: hysterectomy Social History Smoking Status: Former smoker alcohol intake: never ROS ROS ED ROS Narrative Constitutional: Denies headaches, lightness, dizziness, fevers, chills Eyes: Denies change in vision double vision blurry vision Cardiovascular: Complaint of palpitations as noted above denies chest pain Respiratory: Complaint shortness of breath as noted above denies coughing wheezing Abdomen: Denies abdominal pain nausea vomit diarrhea : Denies any urinary symptoms Neurological: Denies numbness, weakness, tingling Musculoskeletal: Denies back pain Skin: Denies rashes or lesions EXAM Physical Exam Narrative Exam Narrative: General: Patient lying in bed rest comfortably did not appear to be in acute distress Head: Atraumatic, normocephalic Eyes: PERRL bilateral, EOMI bilateral, no conjunctival injection noted Neck: Soft, supple, trachea midline Cardiovascular: Patient was tachycardic no murmurs gallops rubs noted Respiratory: Clear to auscultation bilaterally Abdomen: No tenderness palpation, bowel sounds present x 4, soft, nondistended Extremities: +5/5 strength noted in the bilateral upper and lower extremities, no pedal edema on exam Neurological: Patient follow commands knew that she was at [facility] years 2023 Skin: Warm, dry, intact Const Vital Signs: 06/28/24 01:53 06/28/24 01:53 06/28/24 02:06 Temperature 98.4 F Temperature Source Oral Pulse Rate 157 H 160 H Respiratory Rate 24 H 16 Respiratory Pattern Blood Pressure 181/114 H 183/108 H Blood Pressure Mean 136 133 Pulse Ox 96 98 96 Oxygen Delivery Method Room Air Room Air Room Air 06/28/24 02:18 06/28/24 02:23 06/28/24 02:27 Temperature Temperature Source Pulse Rate 158 H 97 Respiratory Rate 18 12 Respiratory Pattern Normal Blood Pressure 180/93 H 139/103 H Blood Pressure Mean 122 115 Pulse Ox 97 96 Oxygen Delivery Method Room Air Room Air 06/28/24 03:00 06/28/24 04:00 06/28/24 05:00 Temperature Temperature Source Pulse Rate 102 H 113 H 79 Respiratory Rate 18 18 15 Respiratory Pattern Blood Pressure 156/86 H 165/76 H 131/75 H Blood Pressure Mean 109 105 93 Pulse Ox 97 97 94 Oxygen Delivery Method Room Air Room Air Room Air 06/28/24 05:19 06/28/24 05:21 Temperature 98.1 F 98.1 F Temperature Source Oral Pulse Rate 71 71 Respiratory Rate 18 18 Respiratory Pattern Blood Pressure 137/77 H 137/77 H Blood Pressure Mean 97 97 Pulse Ox 94 94 Oxygen Delivery Method Room Air MDM MDM MDM Narrative Medical decision making narrative: Patient is a 78-year-old female who presented to the emergency department the chief complaint of palpitations. Patient will have a workup performed here on the differential diagnose includes but not limited to ACS, hyperthyroidism, atrial flutter, atrial fibrillation with rapid ventricular response, supraventricular tachycardia, UTI. Once workup is obtained reviewed she will be reevaluated. Patient CBC reviewed and was largely unremarkable no evidence leukocytosis white blood count normal 8.8, hemoglobin stable 13.9, platelet count normal at 229. Patient's sodium normal 140, potassium normal 3.8, creatinine normal at 0.75. Patient's glucose was 223. Patient's troponin was normal at 14, proBNP normal at 50.3, TSH was normal at 1.46. Patient's magnesium level normal at 2.1. Patient did appear to be in supraventricular tachycardia therefore vagal maneuver was attempted with syringe method this did not break the rhythm. Patient was given 6 mg of adenosine and rhythm strip was obtained. Rhythm broke for a short period and return to supraventricular tachycardia with a rate of 160 bpm. Patient was given 12 mg of adenosine and a rhythm strip was obtained. No evidence of atrial flutter during these rhythm strips. Patient's heart rate remained in the low 100s upper 90s. Repeat EKG was performed and showed sinus tachycardia with depressions noted in leads V1 through V5. I paged on-call interventionalists Dr. Merritt. Ultimately had to reach out to Dr. Humphries on-call milking machine mechanic. Patient's EKGs were independently interpreted by myself. Patient's D-dimer was 0.56 however with age-adjusted D-dimer VTE was unlikely 0.79 will be the cutoff. Patient's delta troponin came back and was elevated at 343. I called back and discussed with Dr. Humphries and he believes that she warrants a stress test and is recommending Lovenox and aspirin which was ordered. Patient case will be discussed with hospitalist for admission. He is also recommending metoprolol to tartrate 50 mg twice daily which she was given a dose here. Patient's heart rate improved to 80 bpm. Patient case discussed with hospitalist Dr. Guaman who will accept patient for admission. Patient notified is agreeable to plan all question concerns answered bedside. Critical care time 40 minutes. Lab Data Labs: Laboratory Results - last 24 hr 06/28/24 06/28/24 01:58 03:50 WBC 8.8 RBC 4.85 Hgb 13.9 Hct 41.2 MCV 84.9 MCH 28.7 MCHC 33.7 RDW Std Deviation 40.4 RDW Coeff of Jennifer 13.0 Plt Count 229 MPV 10.6 Immature Gran % (Auto) 0.300 Neut % (Auto) 55.7 Lymph % (Auto) 29.0 [place] % (Auto) 10.0 Eos % (Auto) 4.3 Baso % (Auto) 0.7 Absolute Neuts (auto) 4.9 Absolute Lymphs (auto) 2.56 Nucleated RBC % 0 D-Dimer Quant (PE/DVT) 0.56 H* Sodium 140 Potassium 3.8 Chloride 107 Carbon Dioxide 26.0 Anion Gap 7 BUN 13 Creatinine 0.75 Estim Creat Clear Calc 28.42 Est GFR (MDRD) Af Amer 96 Est GFR (MDRD) Non-Af 79 BUN/Creatinine Ratio 17.4 Glucose 223 H Calcium 8.9 Magnesium 2.1 Troponin I High Sens 14 343 H* B-Natriuretic Peptide 50.3 TSH 1.460 Radiography Diagnostic Testing: Clinical Impression(s) from Imaging Studies Chest X-Ray 06/28/24 02:04 IMPRESSION: Chest with no acute disease. Electronically Signed: Darrius Day MD at 4:15 EST , Discharge Plan Triage Chief Complaint: Chest Pain ED Provider: Rajiv Riddle Dx/Rx/DC Orders Clinical Impression: Supraventricular tachycardia, Palpitations Prescriptions: No Action guaifenesin [Mucinex] 600 mg tablet extended release 12hr 600 mg PO Q12H PRN (Reason: Cough) omeprazole 20 MG capsule 40 mg PO DAILY cholecalciferol (vitamin D3) 10,000 UNIT tablet 1,250 unit PO QWEEK Patient Comments: TWICE A WEEK Rx Instructions: 1250 units Clamara Estrogen Patch 0.05 mg TRANSDERM. QWEEK hydrocodone-acetaminophen 1 TABLET tablet 1 - 2 tab PO Q4H PRN PRN (Reason: Pain) Qty: 20 0RF albuterol (refill) 90 mcg/actuation Aerosol 90 mcg INHALATION PRN PRN (Reason: SOB) montelukast 10 mg tablet 10 mg PO DAILY sucralfate 1 gram tablet 1 g PO TID prednisone 50 mg tablet 40 mg PO DAILY lorazepam [Ativan] 1 mg tablet 1 mg PO QHS PRN (Reason: sleep) 10 Days Qty: 10 0RF polyethylene glycol 3350 [Miralax] 17 gram/dose powder 17 g PO DAILY 14 Days Qty: 238 0RF docusate sodium [Colace] 100 mg capsule 100 mg PO DAILY Qty: 14 0RF senna 8.6 mg capsule 8.6 mg PO DAILY Qty: 14 0RF ondansetron 4 mg tablet,disintegrating 4 mg PO Q8H PRN PRN (Reason: Nausea) Qty: 10 0RF hydroxyzine HCl 10 mg tablet 10 mg PO QHS Qty: 30 0RF Primary Care Provider: Lorena Arana Referrals: Lorena Arana DO [Primary Care Provider] - Print Language: Czech
[2024-06-28 03:58] LABS: D-Dimer Quantitative (DVT/PE) 0.56 FEU/ug/m (0.27-0.49)
[2024-06-28] MEDS: Ondansetron 4 MG/2 ML Vial IV (04:10)
[2024-06-28] MEDS: Metoprolol Tartrate 50 MG Tablet PO ×2 (04:10→21:50)
[2024-06-28] MEDS: Morphine 2 MG/ML Syringe IV (04:11)
[2024-06-28 04:12] LABS: Reflex Troponin-HS? (from REC) Y
[2024-06-28 05:00] LABS: Troponin-I HS 343 pg/mL (3.0-54.0)
[2024-06-28] MEDS: Aspirin 325 MG Tablet PO (05:16)
[2024-06-28] MEDS: Enoxaparin 30 MG/0.3 ML Syringe SC (05:16)
--- NOTE | 2024-06-28 05:27 | PCM.HP.STD ---
HPI - General General Date of Admission: 06/28/24 Date of Service: 06/28/24 Chief Complaint: Palpitations HPI Narrative DINAH COOL, is a 78 F who presented to [facility] ED on 06/28/24 with palpitations. Patient reported intermittent palpitations for the last 3 weeks. Noted that tonight's episode was worse and did not resolve like other episodes so she came in for further evaluation. Notes that she has had some shortness of breath associated with these episodes as well. On arrival to the ED she was found to be in SVT with heart rate in the 160s. Did not break with vagal maneuver. 6 mg of adenosine was administered and rhythm broke for a short period of time but then she went back in SVT with rate of 160. 12 mg adenosine was given and heart rate remained in sinus rhythm in the 90s to 100s after that. Repeat EKG after that dose of adenosine showed sinus tachycardia with ST depressions noted in leads V1 through V5. Her troponin level jumped from 14 to 343 as well. Case was discussed with Dr. Humphries who recommended admission for further evaluation. She was given doses of aspirin, Lovenox and Lopressor 50 mg p.o. as well per cardiology recommendation. Hospitalist was then contacted for admission. I saw the patient at bedside in the ED, was present. Patient was sitting up comfortably in bedside chair, conversing normally, in no acute distress. Stated she had no chest pain or discomfort currently. Denied any palpitations at this time as well. Notably heart rate was stable around 70 in sinus rhythm on telemetry during my encounter with her. Patient denies any prior history of palpitations until about 3 weeks ago. Denies any chest pain or shortness of breath with exertion recently. Denies any recent illnesses. Denies any fevers or chills. Denies any other pain or discomfort. Will be admitted for further management. [facility] Medical History Bladder mass Loss of hearing Wears contact lenses History of steroid therapy Bladder disease Fatty liver Back pain Migraine headache History of hiatal hernia History of diverticulitis Pneumonia Gastric reflux Former smoker Atelectasis of both lungs Shortness of breath on exertion Leg cramps History of edema History of echocardiogram History of stress test Pain Left foot pain Left ankle pain Hay fever Arthritis Home Medications ?Medication ?Instructions ?Recorded ?Last Taken ?Type omeprazole 20 mg capsule,delayed 40 mg PO DAILY 11/08/13 09/24/18 History release Clamara Estrogen Patch 0.05 mg TRANSDERM. QWEEK 11/15/14 09/24/18 History cholecalciferol (vitamin D3) 250 1,250 unit PO QWEEK 11/15/14 09/24/18 History mcg (10,000 unit) tablet hydrocodone-acetaminophen 5-325mg 1 - 2 tab (1 - 2 x 5-325 mg) PO 11/22/14 09/24/18 Rx 5mg-325mg Q4H PRN PRN Pain #20 TABLETS guaifenesin 600 mg tablet, 600 mg PO Q12H PRN Cough 01/22/21 Unknown History extended release 12 hr (Mucinex) albuterol (refill) 90 90 mcg inhalation PRN PRN SOB 11/30/21 Unknown History mcg/actuation aerosol inhaler montelukast 10 mg tablet 10 mg PO DAILY 02/24/24 Unknown History prednisone 50 mg tablet 40 mg PO DAILY 02/24/24 Unknown History sucralfate 1 gram tablet 1 g PO TID 02/24/24 Unknown History lorazepam 1 mg tablet (Ativan) 1 mg PO QHS PRN sleep 10 days #10 02/25/24 Unknown Rx tabs docusate sodium 100 mg capsule 100 mg PO DAILY #14 caps 03/04/24 Unknown Rx (Colace) hydroxyzine HCl 10 mg tablet 10 mg PO QHS #30 tabs 03/04/24 Unknown Rx ondansetron 4 mg disintegrating 4 mg PO Q8H PRN PRN Nausea #10 tabs 03/04/24 Unknown Rx tablet polyethylene glycol 3350 17 17 g PO DAILY 14 days #238 grams 03/04/24 Unknown Rx gram/dose oral powder (Miralax) sennosides 8.6 mg capsule (senna) 8.6 mg PO DAILY #14 caps 03/04/24 Unknown Rx Allergy/AdvReac Type Severity Reaction Status Date / Time gabapentin Allergy Rash Verified 06/28/24 01:53 Iodinated Contrast Media Allergy Hives Verified 06/28/24 01:53 (Iodinated Contrast Media - IV Dye) tetracycline (Tetracycline) Allergy Hives Verified 06/28/24 01:53 Surgical History Hx of nasal septoplasty Hx of bladder repair surgery Hx of arthroplasty Hx of laparoscopy Hx of cholecystectomy H/O: hysterectomy Social History Smoking Status: Former smoker alcohol intake: never ROS Constitutional Constitutional: Denies chills, fatigue, fever(s) or weakness Eyes Eyes: Denies change in vision Cardiovascular Cardiovascular: Reports palpitations; Denies chest pain, edema or lightheadedness Respiratory/Chest Respiratory/Chest: Denies cough, shortness of breath at rest, shortness of breath with exertion or wheezing Gastrointestinal Gastrointestinal: Denies abdominal pain Neurologic Neurologic: Denies dizziness or headache(s) Vital Signs Vital Signs Vital Signs: 06/28/24 01:53 06/28/24 01:53 06/28/24 02:06 Temperature 98.4 F Temperature Source Oral Pulse Rate 157 H 160 H Respiratory Rate 24 H 16 Respiratory Pattern Blood Pressure 181/114 H 183/108 H Blood Pressure Mean 136 133 Pulse Ox 96 98 96 Oxygen Delivery Method Room Air Room Air Room Air 06/28/24 02:18 06/28/24 02:23 06/28/24 02:27 Temperature Temperature Source Pulse Rate 158 H 97 Respiratory Rate 18 12 Respiratory Pattern Normal Blood Pressure 180/93 H 139/103 H Blood Pressure Mean 122 115 Pulse Ox 97 96 Oxygen Delivery Method Room Air Room Air 06/28/24 03:00 06/28/24 04:00 06/28/24 05:00 Temperature Temperature Source Pulse Rate 102 H 113 H 79 Respiratory Rate 18 18 15 Respiratory Pattern Blood Pressure 156/86 H 165/76 H 131/75 H Blood Pressure Mean 109 105 93 Pulse Ox 97 97 94 Oxygen Delivery Method Room Air Room Air Room Air 06/28/24 05:19 06/28/24 05:21 Temperature 98.1 F 98.1 F Temperature Source Oral Pulse Rate 71 71 Respiratory Rate 18 18 Respiratory Pattern Blood Pressure 137/77 H 137/77 H Blood Pressure Mean 97 97 Pulse Ox 94 94 Oxygen Delivery Method Room Air Weight Weight: 31.57 kg Body Mass Index (BMI) 12.7 Physical Exam Const alert, oriented x3, no apparent distress and average body habitus Constitutional Narrative: Pleasant elderly female, mildly fatigued appearing, hard of hearing, otherwise sitting up comfortably in bedside chair, conversing normally, in no acute distress. General Appearance: cooperative and comfortable HEENT normocephalic, head/scalp atraumatic, nasal mucous membranes and turbinates normal and moist oral mucous membranes HEENT Narrative: Hard of hearing. Eyes PERRL, EOMs intact bilaterally and conjunctivae normal Neck full ROM Chest inspection of chest normal Resp normal respiratory effort, normal air movement, no use of accessory muscles and clear to auscultation bilaterally Cardio regular rate, regular rhythm, no murmurs and peripheral pulses 2+ throughout GI normal to inspection, nondistended, normoactive bowel sounds, soft to palpation, non-tender and non-distended Back/Spine normal ROM Extremity normal to inspection, full ROM and no pedal edema Skin no rashes or lesions noted Psych mental status grossly normal Results Lab / Micro Data 06/28/24 01:58 06/28/24 01:58 Labs: Laboratory Results - last 24 hr 06/28/24 01:58: WBC 8.8, RBC 4.85, Hgb 13.9, Hct 41.2, MCV 84.9, MCH 28.7, MCHC 33.7, RDW Std Deviation 40.4, RDW Coeff of Jennifer 13.0, Plt Count 229, MPV 10.6, Immature Gran % (Auto) 0.300, Neut % (Auto) 55.7, Lymph % (Auto) 29.0, [place] % (Auto) 10.0, Eos % (Auto) 4.3, Baso % (Auto) 0.7, Absolute Neuts (auto) 4.9, Absolute Lymphs (auto) 2.56, Nucleated RBC % 0, D-Dimer Quant (PE/DVT) 0.56 H*, Sodium 140, Potassium 3.8, Chloride 107, Carbon Dioxide 26.0, Anion Gap 7, BUN 13, Creatinine 0.75, Estim Creat Clear Calc 28.42, Est GFR (MDRD) Af Amer 96, Est GFR (MDRD) Non-Af 79, BUN/Creatinine Ratio 17.4, Glucose 223 H, Calcium 8.9, Magnesium 2.1, Troponin I High Sens 14, B-Natriuretic Peptide 50.3, TSH 1.460 06/28/24 03:50: Troponin I High Sens 343 H* Imaging Radiology Impression Chest X-Ray 06/28/24 02:04 IMPRESSION: Chest with no acute disease. Electronically Signed: Darrius Day MD at 4:15 EST , Assessment & Plan Assessment/Plan (1) NSTEMI, initial episode of care: (2) Supraventricular tachycardia: PLAN: Plan Patient is a 78-year-old female who presented [facility] ED on 06/28/2024 with palpitations. 1. NSTEMI ? Admit under inpatient status to PCU. Cardiology consulted. Troponin trend 14 > 343 in ED and EKG after conversion out of SVT for second time showed ST depressions in leads V1 through V5. Likely component of demand ischemia secondary to SVT but cannot rule out type I NSTEMI. Third troponin ordered. Nuclear stress test ordered. Echo ordered. Continue cardiac telemetry. TSH normal in ED, lipid panel and A1c ordered. N.p.o. at midnight for stress test tomorrow. 2. SVT ? Presented with palpitations, EKG on admit consistent with SVT. Initially broke with 6 mg of adenosine but then went back into SVT with rate 160s. Broke again with 12 mg of adenosine and then had sinus tachycardia in the low 100s after that. Will start Lopressor 50 mg twice daily per cardiology recommendation, first dose given in ED. Continue cardiac telemetry. Further workup as above. 3. Hyperglycemia ? Blood glucose 223 on admit. No prior A1c values available in our records. A1c ordered. Will hold on ordering POC glucose checks and sliding scale insulin for now but low threshold to start if needed. Chronic medical conditions: ? Chronic back pain: OARRS reviewed and has been feeling hydrocodone?acetaminophen regularly. Hydrocodone?acetaminophen every 6 hours as needed ordered. ? GERD: Continue home PPI. ? Anxiety/insomnia: Continue home Ativan at night as needed. DVT prophylaxis: Lovenox CODE STATUS: Full code, verified Expected disposition: Home, 2 to 3 days Total clinical time spent by myself addressing the patient's medical issues, reviewing all the data, and collaborating with patient's care team: 55 minutes. Charges/Coding Visit Charges Inpatient E&M: 61507 Init Hosp L2
--- NOTE | 2024-06-28 06:07 | ECHOCS_ITS ---
Reason For Study: Palpitations Procedure This was a 2D Doppler, Color Flow transthoracic echocardiogram. Contrast injection was performed. Exam performed in department. Left Ventricle Normal LV size. Moderate assymetric septal hypertrophy. The estimated ejection fraction is 65-70 %. Stage 2 diastolic dysfunction. No regional wall motion abnormalities noted. Right Ventricle Normal RV size. Normal systolic function. Atria The left atrium is mildly enlarged. Normal right atrium. Mitral Valve Mild mitral annular calcification. Mild focal mitral valve calcification. Mild (1+) mitral valve insufficiency. Tricuspid Valve Normal tricuspid valve. Mild (1+) tricuspid valve insufficiency. Pulmonary artery systolic pressure is 45 mmHg. Aortic Valve Trisinus/trileaflet aortic valve. Mild focal aortic valve calcification. There is no aortic stenosis. Trivial aortic valve insufficiency. Pulmonic Valve Normal pulmonic valve. Mild (1+) pulmonic valve insufficiency. Great Vessels Normal aortic root. Pericardium/Pleural No pericardial effusion. Medication Diluted definity 1ml given slow IV push to enhance endocardial definition. MMode/2D Measurements & Calculations LVIDd: 3.9 cm IVSd: 1.5 cm Ao root diam: 3.1 cm LVIDs: 2.4 cm LVPWd: 0.70 cm RVDd: 3.6 cm FS: 37.4 % LAV(MOD-bp): 56.4 ml LVAd ap4: 25.3 cm2 SV(MOD-sp4): 54.0 ml LAV(MOD-bp) Indexed: 32.9 ml/m2 LVLd ap4: 7.1 cm SI(MOD-sp4): 31.5 ml/m2 LAV(MOD-sp2): 53.0 ml EDV(MOD-sp4): 73.7 ml LAV(MOD-sp4): 55.9 ml EDV(sp4-el): 76.9 ml LVAs ap4: 11.3 cm2 LVLs ap4: 5.5 cm ESV(MOD-sp4): 19.7 ml ESV(sp4-el): 19.5 ml EF(MOD-sp4): 73.3 % EF(sp4-el): 74.6 % SV(sp4-el): 57.4 ml LA A4 area: 20.1 cm2 LA dimension(2D): 3.3 cm RA A4 area: 17.0 cm2 TAPSE: 1.9 cm Time Measurements MV dec time: 0.28 sec Doppler Measurements & Calculations MV E max kurtis: 114.1 cm/sec Lat Peak E' Kurtis: 7.8 cm/sec Med Peak E' Kurtis: 5.7 cm/sec MV A max kurtis: 124.9 cm/sec E/E' lat: 14.7 E/E' med: 19.9 MV E/A: 0.91 MV V2 max: 164.7 cm/sec MV P1/2t max kurtis: 165.9 cm/sec Ao V2 max: 128.8 cm/sec MV max P.9 mmHg MV P1/2t: 105.0 msec Ao max P.6 mmHg MV V2 mean: 83.1 cm/sec MV dec slope: 462.8 cm/sec2 MV mean P.4 mmHg MVA(P1/2t): 2.1 cm2 MV V2 VTI: 52.0 cm AI max kurtis: 284.8 cm/sec LV V1 max: 106.5 cm/sec PA V2 max: 127.9 cm/sec AI max P.4 mmHg LV V1 max P.5 mmHg AI dec slope: 195.2 cm/sec2 LV V1 mean P.1 mmHg AI P1/2t: 427.2 msec LV V1 mean: 84.4 cm/sec LV V1 VTI: 28.4 cm TR max kurtis: 322.0 cm/sec TR max P.5 mmHg ECHO/Echo Complete W/ Contrast Interpretation Summary The estimated ejection fraction is 65-70 %. Moderate assymetric septal hypertro phy. Stage 2 diastolic dysfunction. Mild (1+) mitral valve insufficiency. Mild (1+) tricuspid valve insufficiency. Pulmonary artery systolic pressure is 45 mmHg. Mild focal aortic valve calcification. The study was technically difficult. Contrast injection was performed. Ordering Physician: Angel Guaman Performed By: Jerod Goss RCS
[2024-06-28 07:34] LABS: Cholesterol 215 mg/dL (200); High Density Lipoprotein 42 mg/dL; Triglycerides 168 mg/dL; Very Low Density Lipoprotein 34 mg/dL (5-40)
[2024-06-28 08:50] LABS: Hemoglobin A1c 7.9 % (3.8-5.6)
[2024-06-28 09:01] LABS: Troponin-I HS 1074 pg/mL (3.0-54.0)
[2024-06-28] MEDS: Docusate Sodium 100 MG Capsule PO (10:06)
[2024-06-28] MEDS: HYDROcodone Bitartrate/Apap 5/325 Tablet PO ×3 (10:06→22:44)
[2024-06-28] MEDS: Pantoprazole Sodium 40 MG Tablet PO (10:06)
--- NOTE | 2024-06-28 10:28 | CON.PCM.CA_ITS ---
Assessment & Plan Assessment/Plan (1) NSTEMI, initial episode of care: PLAN: Likely type II elevation of troponins with underlying CAD. However with the significant elevation of troponins, I think it is prudent to proceed with coronary angiography and possible revascularization. Risks benefits and alternatives were explained to the patient. She understand these but is reluctant to go ahead with the procedure. She has already been ordered pharmacological stress test and she wishes to have that done first. Start on aspirin. Clopidogrel. Beta-blockers. Statins. Check echocardiogram. Mildly elevated D-dimer is also noted. Will check CTA to rule out PE. (2) Coronary artery disease: PLAN: Diagnosis as incidental finding of coronary calcification on CT scan of the chest in November of this year. See #1 above. (3) Supraventricular tachycardia: PLAN: Agree with beta-blockers. (4) Asthma: PLAN: As per internal medicine/pulmonology. HPI Consult Data Date of Consult: 06/28/24 HPI Narrative Reason for Consultation: NSTEMI HPI Narrative: This 78-year-old lady has a past medical history significant for asthma and GERD. She presented to the emergency room last night with complaints of palpitations. She was noted to be in SVT. The SVT was successfully broken using IV adenosine. Further workup revealed elevated troponins with an upward trend. We have therefore been asked for evaluation and management. But those episodes were per patient, she has been experiencing intermittent palpitations over the last month or so however these used to be rather brief and self terminating until the 1 last night. According to her, last night she had a prolonged episode of palpitations. Along with that, she had some central and left-sided chest discomfort as well. The chest discomfort lasted about 5 minutes and then relieved on its own. No radiation to the arm neck or jaw. Patient had shortness of breath associated with her palpitations. The shortness of breath resolved promptly after she converted to sinus rhythm in the emergency room. Patient denies any previous history of rest or effort angina. She does have shortness of breath with exertion. According to her, this has been stable over many years without any recent change. Denies any orthopnea or PND. No ankle edema. Patient has had a CTA of the chest done in November of this year. It showed coronary calcifications as an incidental finding. [facility] Medical History Bladder mass Loss of hearing Wears contact lenses History of steroid therapy Bladder disease Fatty liver Back pain Migraine headache History of hiatal hernia History of diverticulitis Pneumonia Gastric reflux Former smoker Atelectasis of both lungs Shortness of breath on exertion Leg cramps History of edema History of echocardiogram History of stress test Pain Left foot pain Left ankle pain Hay fever Arthritis Home Medications ?Medication ?Instructions ?Recorded ?Last Taken ?Type omeprazole 20 mg capsule,delayed 40 mg PO DAILY 11/08/13 09/24/18 History release Clamara Estrogen Patch 0.05 mg TRANSDERM. QWEEK 11/15/14 06/24/24 History cholecalciferol (vitamin D3) 250 1,250 unit PO QWEEK 11/15/14 06/24/24 History mcg (10,000 unit) tablet hydrocodone-acetaminophen 5-325mg 1 - 2 tab (1 - 2 x 5-325 mg) PO 11/22/14 09/24/18 Rx 5mg-325mg Q4H PRN PRN Pain #20 TABLETS albuterol (refill) 90 90 mcg inhalation PRN PRN SOB 11/30/21 Unknown History mcg/actuation aerosol inhaler lorazepam 1 mg tablet (Ativan) 1 mg PO QHS PRN sleep 10 days #10 02/25/24 Unknown Rx tabs Allergy/AdvReac Type Severity Reaction Status Date / Time codeine Allergy Intermediate Nausea/Vom/ Verified 06/28/24 06:34 Diarrhea gabapentin Allergy Rash Verified 06/28/24 01:53 Iodinated Contrast Media Allergy Hives Verified 06/28/24 01:53 (Iodinated Contrast Media - IV Dye) tetracycline (Tetracycline) Allergy Hives Verified 06/28/24 01:53 Surgical History Hx of nasal septoplasty Hx of bladder repair surgery Hx of arthroplasty Hx of laparoscopy Hx of cholecystectomy H/O: hysterectomy Social History Smoking Status: Former smoker alcohol intake: never Physical Exam Narrative Comfortable. No apparent distress. Heart sounds 1 and 2 normal. Very soft systolic murmur is heard over the left sternal border. Chest clear to auscultation bilaterally. Alert oriented x 3. No ankle edema noted. Risk Stratification Risk Stratification Applicable: No Objective Data Vital Signs: Vital Signs Temp Pulse Resp BP Pulse Ox O2 Del Method 97.8 F 72 18 115/59 L 98 Room Air 06/28/24 10:03 06/28/24 10:03 06/28/24 10:03 06/28/24 10:03 06/28/24 10:03 06/28/24 10:03 Oxygen Delivery Method Room Air Weight: 155 lb 3.287 oz Body Mass Index (BMI) 28.3 Lab / Micro Data Attestation: I reviewed the patient's lab results. 06/28/24 01:58 06/28/24 01:58 Labs: Laboratory Results - last 24 hr 06/28/24 01:58: WBC 8.8, RBC 4.85, Hgb 13.9, Hct 41.2, MCV 84.9, MCH 28.7, MCHC 33.7, RDW Std Deviation 40.4, RDW Coeff of Jennifer 13.0, Plt Count 229, MPV 10.6, Immature Gran % (Auto) 0.300, Neut % (Auto) 55.7, Lymph % (Auto) 29.0, [place] % (Auto) 10.0, Eos % (Auto) 4.3, Baso % (Auto) 0.7, Absolute Neuts (auto) 4.9, Absolute Lymphs (auto) 2.56, Nucleated RBC % 0, D-Dimer Quant (PE/DVT) 0.56 H*, Sodium 140, Potassium 3.8, Chloride 107, Carbon Dioxide 26.0, Anion Gap 7, BUN 13, Creatinine 0.75, Estim Creat Clear Calc 28.42, Est GFR (MDRD) Af Amer 96, Est GFR (MDRD) Non-Af 79, BUN/Creatinine Ratio 17.4, Glucose 223 H, Calcium 8.9, Magnesium 2.1, Troponin I High Sens 14, B-Natriuretic Peptide 50.3, TSH 1.460 06/28/24 03:50: Troponin I High Sens 343 H*, Triglycerides 168, Cholesterol 215 H, LDL Cholesterol 139 H, VLDL Cholesterol 34, HDL Cholesterol 42 06/28/24 08:16: Hemoglobin A1c 7.9 H, Troponin I High Sens 1074 H* Rhythm Strip Rhythm Strip: Sinus Rhythm Cardiology Labs/Tests 06/28/24 01:58: WBC 8.8, RBC 4.85, Hgb 13.9, Hct 41.2, MCV 84.9, MCH 28.7, MCHC 33.7, Plt Count 229, MPV 10.6, Immature Gran % (Auto) 0.300, Neut % (Auto) 55.7, Lymph % (Auto) 29.0, [place] % (Auto) 10.0, Eos % (Auto) 4.3, Baso % (Auto) 0.7, Absolute Neuts (auto) 4.9, Nucleated RBC % 0, D-Dimer Quant (PE/DVT) 0.56 H*, Sodium 140, Potassium 3.8, Chloride 107, Carbon Dioxide 26.0, Anion Gap 7, BUN 13, Creatinine 0.75, Est GFR (MDRD) Af Amer 96, Est GFR (MDRD) Non-Af 79, BUN/Creatinine Ratio 17.4, Glucose 223 H, Calcium 8.9, Magnesium 2.1, B- Natriuretic Peptide 50.3 06/28/24 03:50: Triglycerides 168, Cholesterol 215 H, LDL Cholesterol 139 H, VLDL Cholesterol 34, HDL Cholesterol 42 06/28/24 08:16: Hemoglobin A1c 7.9 H Rhythm: EKG: First ECG done in the ER showed SVT. ECG done this morning shows sinus rhythm with ST changes suggestive of high lateral ischemia. Also T wave inversions noted in V1 and V2 suggestive of ischemia. ECHO: Stress Test: Cardiac Cath: PCI: CT Surgery: Holter monitor: EPS: PPM: CXR: Chest CT Scan: Radiography Diagnostic Testing: Radiology Impression Chest X-Ray 06/28/24 02:04 IMPRESSION: Chest with no acute disease. Electronically Signed: Darrius Day MD at 4:15 EST ,
[2024-06-28 11:34] LABS: Cholesterol 209 mg/dL (200); High Density Lipoprotein 43 mg/dL; Triglycerides 141 mg/dL; Very Low Density Lipoprotein 28 mg/dL (5-40)
[2024-06-28] MEDS: Clopidogrel Bisulfate 75 MG Tablet PO (12:18)
[2024-06-28] MEDS: Atorvastatin Calcium 20 MG Tablet PO (21:51)
[2024-06-29 05:50] VITALS: BP 136/60; BP 136/69; PULSE 54; RESP 16; TEMP 36.3; O2SAT 98
[2024-06-29 05:50] LABS: Absolute Lymphocyte Count 3.36 X10^3/uL (0.83-4.51); Absolute Neutrophil Count 3.4 X10^3/uL (2.0-7.7); Basophil# 0.04 X10^3/uL; Basophil% 0.5 % (0-1); Eosinophil# 0.35 X10^3/uL; Eosinophils% 4.4 % (0-5); Hematocrit 36.7 % (37-47); Hemoglobin 11.7 g/dL (12.0-15.0); Lymphocyte # 3.36 X10^3/ul (0.83-4.51); Lymphocyte % 42.1 % (19-41); Mean Corp Hgb Conc 31.9 g/dL (32-36); Mean Corpuscular Hgb 28.3 pg (27.0-32.0); Mean Corpuscular Volume 88.9 fL (81-99); Monocyte# 0.82 X10^3/uL; Monocyte% 10.3 % (0-10); NRBC Flagged by Analyzer 0 % (0-5); Neutrophil % 42.4 % (47-70); Platelet Count 189 K/mm3 (150-450); RBC Distribution Width CV 13.1 % (11.6-14.6); RBC Distribution Width SD 42.8 fl (35.1-43.9); Red Blood Count 4.13 M/mm3 (4.2-5.4)
[2024-06-29] MEDS: Aspirin E.C. 81 MG Tablet PO (06:11)
[2024-06-29 06:18] LABS: Anion Gap 5 (5-15); BUN 19 mg/dL (7-18); BUN/Creat Ratio 30.3 RATIO (10-20); Calcium,Total 8.9 mg/dL (8.5-10.1); Chloride 110 mmol/L (98-107); Creatinine, Serum 0.63 mg/dL (0.55-1.02); EST Glomerular Filtration Rate 97 mL/min (>60); Est Glom Filt Rate - Afr Amer 118 mL/min (>60); Estimated Creatinine Clearance 52.41 ml/min; Glucose 148 mg/dL (74-106); Potassium 4.4 mmol/L (3.5-5.1); Sodium Level 140 mmol/L (136-145)
[2024-06-29 07:02] VITALS: O2SAT 94
[2024-06-29 11:10] VITALS: BP 124/65; PULSE 62; RESP 14; TEMP 36.6; O2SAT 96
[2024-06-29 11:14] VITALS: PULSE 62
[2024-06-29] MEDS: Docusate Sodium 100 MG Capsule PO (11:14)
[2024-06-29] MEDS: Pantoprazole Sodium 40 MG Tablet PO (11:14)
[2024-06-29] MEDS: Metoprolol Tartrate 50 MG Tablet PO (11:14)
[2024-06-29] MEDS: Clopidogrel Bisulfate 75 MG Tablet PO (11:14)
[2024-06-29] MEDS: Montelukast 10 MG Tablet PO (11:15)
[2024-06-29] MEDS: HYDROcodone Bitartrate/Apap 5/325 Tablet PO (11:22)
--- NOTE | 2024-06-29 11:46 | STRESSREP_ITS ---
Stress Test Report Date: 06/29/2024 Procedure: Pharmacologic stress nuclear imaging study Indications: Chest pain Consent: Per the patient Procedure: The patient underwent pharmacologic (Regadenoson 0.4mg ) evaluation with a peak heart rate of 83 beats per minute (58%predicted maximal heart rate) and a peak blood pressure of 130/7 mmHg. The baseline ECG demonstrated sinus rhythm with ST depressions in high lateral leads. The peak pharmacologic ECG demonstrated no diagnostic ischemic changes. There were no cardiac dysrhythmias pretest, during pharmacologic infusion, or recovery. There was no complaint of chest discomfort during pharmacologic infusion or recovery. The patient was injected with 12.0 millicuries of technetium 99m Cardiolite and subsequently rest SPECT Cardiolite nuclear imaging was obtained in the horizontal long, vertical long, and short axis views. The patient underwent pharmacologic (Regadenoson) evaluation. The patient was injected with 34.4 millicuries of technetium 99m Cardiolite and subsequently stress SPECT Cardiolite nuclear imaging was obtained in the horizontal long, vertical long, and short axis views. A gated Cardiolite study at peak stress was obtained. The examination was stopped secondary to completion of protocol. Rest and stress SPECT Cardiolite nuclear imaging status post realignment, n ormalization, and attenuation correction demonstrate a small reversible apical perfusion defect of mild intensity suggestive of ischemia. There is end systolic thickening and brightening. The gated Cardiolite study demonstrates myocardial thickening and inward wall motion. The reported LVEF is 80%. Impression: 1. Pharmacologic (Regadenoson) evaluation 2. Peak pharmacologic ECG with no diagnostic ischemic changes. 3. There were no cardiac dysrhythmias pretest, during pharmacologic infusion, or recovery. 5. Small reversible apical perfusion defect of mild intensity suggestive of mild ischemia. Overall low risk stress test with less than 5% of myocardium at risk. 6. The gated Cardiolite study reports an LVEF of 80%. This note was generated with [employer] software. It may contain incorrect words, spelling, and punctuation that were not noted in checking the note before signing.
--- NOTE | 2024-06-29 12:36 | DCINST_ITS ---
Discharge Instructions Diet Discharge Diet: Low fat / Low cholesterol DC O2, CPAP, BIPAP needs Additional Home O2 Discharge instructions: No Dressing / Incision Discharge Activity: Return to Normal Activity Dressing / Incision Call your doctor if you observe: Fever of 101 or Higher, Shortness of breath, Dizziness, Fainting spells, Swelling in the ankles, Chest pain and Increased palpitations (irregular heartbeat) Follow Up Care Test Results: Test results from this visit will be discussed in further detail at your follow- up appointment, if applicable. Discharge Plan Admission Admit Date/Time: 06/28/24 05:28 Attending Provider: Prakash Inman Primary Care Provider: Lorena Arana Consulting Providers: Angel Guaman; Jr Humphries Discharge Orders/Prescriptions Prescriptions: New aspirin 81 mg Tablet,Delayed Release (Dr/Ec) 81 mg PO BREAKFAST 30 Days Qty: 30 0RF atorvastatin 40 mg tablet 40 mg PO QHS 30 Days Qty: 30 0RF metoprolol tartrate 50 mg Tablet 50 mg PO BID 30 Days Qty: 60 0RF Continued omeprazole 20 MG capsule 40 mg PO DAILY cholecalciferol (vitamin D3) 10,000 UNIT tablet 1,250 unit PO QWEEK Rx Instructions: 1250 units Clamara Estrogen Patch 0.05 mg TRANSDERM. QWEEK hydrocodone-acetaminophen 1 TABLET tablet 1 - 2 tab PO Q4H PRN PRN (Reason: Pain) Qty: 20 0RF albuterol (refill) 90 mcg/actuation Aerosol 90 mcg INHALATION PRN PRN (Reason: SOB) lorazepam [Ativan] 1 mg tablet 1 mg PO QHS PRN (Reason: sleep) 10 Days Qty: 10 0RF Referrals / Follow Up: Lorena Arana DO [Primary Care Provider] - Within 1 Week Jr Humphries MD [Med Staff - Active Staff] - Within 3 Months Disposition Disposition (needs filled in before D/C Order can be placed): Home, Self Care
--- NOTE | 2024-06-29 12:55 | CASEMGMT ---
RN CM Face to Face with patient for initial transition planning/care coordination assessment. RN CM introduced self and role at [facility]. Patient lying in bed, alert and oriented. Patient willing to participate in assessment and is able to answer all questions appropriately. Care providers, pharmacy, and demographics verified. Strata: 3 PCP: Yasmeen Specialists: Isadora Salazar, hubert Guerra Pharmacy: [facility] [place] Insurance: [facility], [employer] Prescription Benefit: none Living Will/HPOA: none LNOK: Living Arrangements: Patient lives with in a single story home with 1 step to enter the home. Patient states she is independent at home. Transportation: DME/HHC: Patient has shower chair, raised toilet, cane, walker. Patient has been to [facility]. Patient wishes to discharge home, denies need for home health at this time. Patient states she has no further needs or concerns at this time. CM to follow for discharge planning needs that may arise. Disposition Plan: Patient to discharge home with family support and follow-up plans in place. Crystal MENDEZ, RN, CM
--- NOTE | 2024-06-29 13:29 | PCM.DC.SUM ---
Providers Date of Admission: 06/28/24 Primary Care Physician: Dr. Lorena Arana DO Consultations 06/28/24 06:32 Consult: Cardiology Routine Consulting Provider: Jr Humphries Reason for Consult: NSTEMI EMERGENT Consult: No MD Notified: Yes Date Notified: 06/28/24 Time Notified: 06:47 Method of Notification: Text Reason For Visit: SVT CONCERN FOR NSTEMI Diagnosis Discharge Diagnosis (1) NSTEMI, initial episode of care: Status: Acute Code(s): I21.4 - Non-ST elevation (NSTEMI) myocardial infarction (2) Coronary artery disease: Status: Acute Code(s): I25.10 - Atherosclerotic heart disease of [place] coronary artery without angina pectoris (3) Supraventricular tachycardia: Status: Acute Code(s): I47.10 - Supraventricular tachycardia, unspecified (4) Asthma: Status: Acute Code(s): J45.909 - Unspecified asthma, uncomplicated Medications at Discharge Home Medications omeprazole 20 mg capsule,delayed release 40 mg PO DAILY acid reflux 11/08/13 Clamara Estrogen Patch 0.05 mg TRANSDERM. QWEEK menopausal symptoms 11/15/14 cholecalciferol (vitamin D3) 250 mcg (10,000 unit) tablet 1,250 unit PO QWEEK 11/15/14 hydrocodone-acetaminophen 5-325mg 5mg-325mg 1 - 2 tab (1 - 2 x 5-325 mg) PO Q4H PRN PRN Pain #20 TABLETS 11/22/14 albuterol (refill) 90 mcg/actuation aerosol inhaler 90 mcg inhalation PRN PRN SOB 11/30/21 lorazepam 1 mg tablet (Ativan) 1 mg PO QHS PRN sleep 10 days #10 tabs 02/25/24 aspirin 81 mg tablet,delayed release 81 mg PO BREAKFAST 30 days #30 tabs 06/29/24 atorvastatin 40 mg tablet 40 mg PO QHS 30 days #30 tabs 06/29/24 metoprolol tartrate 50 mg tablet 50 mg PO BID 30 days #60 tabs 06/29/24 Hospital Course Operations None Procedures Nuclear stress test Summary of Care Provided Minutes Spent on Discharge: 37 Hospital Course: Per HPI: DINAH COOL, is a 78 F who presented to [facility] ED on 06/28/24 with palpitations. Patient reported intermittent palpitations for the last 3 weeks. Noted that efrain's episode was worse and did not resolve like other episodes so she came in for further evaluation. Notes that she has had some shortness of breath associated with these episodes as well. On arrival to the ED she was found to be in SVT with heart rate in the 160s. Did not break with vagal maneuver. 6 mg of adenosine was administered and rhythm broke for a short period of time but then she went back in SVT with rate of 160. 12 mg adenosine was given and heart rate remained in sinus rhythm in the 90s to 100s after that. Repeat EKG after that dose of adenosine showed sinus tachycardia with ST depressions noted in leads V1 through V5. Her troponin level jumped from 14 to 343 as well. Case was discussed with Dr. Humphries who recommended admission for further evaluation. She was given doses of aspirin, Lovenox and Lopressor 50 mg p.o. as well per cardiology recommendation. Hospitalist was then contacted for admission. I saw the patient at bedside in the ED, was present. Patient was sitting up comfortably in bedside chair, conversing normally, in no acute distress. Stated she had no chest pain or discomfort currently. Denied any palpitations at this time as well. Notably heart rate was stable around 70 in sinus rhythm on telemetry during my encounter with her. Patient denies any prior history of palpitations until about 3 weeks ago. Denies any chest pain or shortness of breath with exertion recently. Denies any recent illnesses. Denies any fevers or chills. Denies any other pain or discomfort. Will be admitted for further management. Hospital Course: 1. Non-STEMI due to demand ischemia after SVT?78-year-old female presented to the hospital with palpitations as well as chest pain associated with palpitations that would does not improving at home. She was found to be in SVT with heart rates in the 160s and she required ultimately 12 mg of adenosine in the ER to control her heart rate. After the episode of SVT and her return to normal sinus she had no further episodes of chest pain however her troponin did bump and cardiology was consulted. They did not feel that this required any aggressive treatment with heparin drips as this was related to her severe tachycardia with calcified coronary arteries. They did recommend to the patient to have a heart cath however she has had so many different procedures this year that she refused heart cath at this time. She did consent to a stress test which was unremarkable. She was started on metoprolol 50 mg p.o. twice daily which she has been tolerating well here in the hospital. Given the elevation in troponin, she was also started on Lipitor 40 mg daily as well as a baby aspirin. These were continued on discharge and I recommended follow-up with cardiology as an outpatient. I discussed with her the plan for discharge today she expressed understanding Erisman benefits of going home and would like to go home today. I do recommend she follow-up with her PCP in 3 to 5 days. Physical Exam Narrative General: Alert, Oriented x3, Cooperative, No apparent distress HEENT: Atraumatic, PERRLA, EOMI, Normocephalic Oral: Moist Mucosa Neck: Supple, No JVD Lungs: Clear to auscultation, Normal air movement, No rhonchi, No wheeze, No rales Cardiovascular: Regular rate, Regular Rhythm, Normal S1, Normal S2, No murmurs Abdomen: Soft, Non Tender, Non-Distended, No Hepato-splenomegaly Extremities: No edema, Capillary Refill Less than 3 Seconds Skin: No rashes, No breakdown Musculoskeletal: No Tenderness to Palpation of Joints or Extremities Neurological: No focal neurological deficits, Motor Exam 5/5 strength throughout, Sensory exam intact to light touch and pain Psych/Mental Status: Normal Affect, Appropriate Weight / BMI Weight Weight: 155 lb 3.287 oz Body Mass Index (BMI) 28.3 ABG / Lab / Microbiology Data 06/29/24 04:50 06/29/24 04:50 Laboratory: Laboratory Results - last 24 hr 06/29/24 04:50: WBC 8.0, RBC 4.13 L, Hgb 11.7 L, Hct 36.7 L, MCV 88.9, MCH 28.3, MCHC 31.9 L D, RDW Std Deviation 42.8, RDW Coeff of Jennifer 13.1, Plt Count 189, MPV 11.0, Immature Gran % (Auto) 0.300, Neut % (Auto) 42.4 L, Lymph % (Auto) 42.1 H, [place] % (Auto) 10.3 H, Eos % (Auto) 4.4, Baso % (Auto) 0.5, Absolute Neuts (auto) 3.4, Absolute Lymphs (auto) 3.36, Nucleated RBC % 0, Sodium 140, Potassium 4.4, Chloride 110 H, Carbon Dioxide 25.0, Anion Gap 5, BUN 19 H, Creatinine 0.63, Estim Creat Clear Calc 52.41, Est GFR (MDRD) Af Amer 118, Est GFR (MDRD) Non-Af 97, BUN/Creatinine Ratio 30.3 H, Glucose 148 H, Calcium 8.9 D/C Instructions Discharge Diet: Low fat / Low cholesterol Call your doctor if you observe: Fever of 101 or Higher, Shortness of breath, Dizziness, Fainting spells, Swelling in the ankles, Chest pain and Increased palpitations (irregular heartbeat) DC O2, CPAP, BIPAP Needs Additional Home O2 Discharge instructions: No DC home with Oxygen: No Meaningful Use Info Meaningful Use Meaningful Use Diagnoses (Choose all that apply): None applicable Ischemic Stroke Statin Dosing Therapy Reference: STATIN DOSE THERAPY REFERENCE: * Patients > 75 years receive moderate or high dose statin therapy. * Patients 75 years or YOUNGER should receive HIGH intensity statin dose unless contraindicated. You will be required to document reason for non-treatment if statin daily dose does not meet guidelines. HIGH DOSE STATIN THERAPY DAILY Atorvastatin > than or = to 40 mg Rosuvastatin > than or = to 20 mg Amlodipine + Atorvastatin > than or = to 2.5/40 mg Ezetimibe + Simvastatin 10/80 mg Simvastatin 80mg Discharge Plan Admission Admit Date/Time: 06/28/24 05:28 Attending Provider: Prakash Inman Primary Care Provider: Lorena Arana Consulting Providers: Angel Guaman; Jr Humphries Discharge Orders/Prescriptions Prescriptions: New aspirin 81 mg Tablet,Delayed Release (Dr/Ec) 81 mg PO BREAKFAST 30 Days Qty: 30 0RF atorvastatin 40 mg tablet 40 mg PO QHS 30 Days Qty: 30 0RF metoprolol tartrate 50 mg Tablet 50 mg PO BID 30 Days Qty: 60 0RF Continued omeprazole 20 MG capsule 40 mg PO DAILY cholecalciferol (vitamin D3) 10,000 UNIT tablet 1,250 unit PO QWEEK Rx Instructions: 1250 units Clamara Estrogen Patch 0.05 mg TRANSDERM. QWEEK hydrocodone-acetaminophen 1 TABLET tablet 1 - 2 tab PO Q4H PRN PRN (Reason: Pain) Qty: 20 0RF albuterol (refill) 90 mcg/actuation Aerosol 90 mcg INHALATION PRN PRN (Reason: SOB) lorazepam [Ativan] 1 mg tablet 1 mg PO QHS PRN (Reason: sleep) 10 Days Qty: 10 0RF Referrals / Follow Up: Lorena Arana DO [Primary Care Provider] - Within 1 Week Jr Humphries MD [Med Staff - Active Staff] - Within 3 Months Disposition Disposition (needs filled in before D/C Order can be placed): Home, Self Care Charges/Coding Visit Charges Inpatient E&M: 31513 Disch Hosp >30min
== END 2024-06-29 13:45 | disposition home or self-care (01) | DRG 282 ==
LOC: ED 05:31 → PCU 05:55
PROVIDERS: Internal Medicine Cardiovascular Disease; Admitting Provider Hospitalist; Emergency Provider Emergency Medicine; PCP Internal Medicine; Visit Provider Family Medicine
DX: I47.10 Supraventricular tachycardia, unspecified (principal); I21.A1 Myocardial infarction type 2; J45.909 Unspecified asthma, uncomplicated; I25.10 Atherosclerotic heart disease of native coronary artery without angina pectoris; K21.9 Gastro-esophageal reflux disease without esophagitis; F41.9 Anxiety disorder, unspecified; M54.9 Dorsalgia, unspecified; G89.29 Other chronic pain; Z90.710 Acquired absence of both cervix and uterus; Z79.891 Long term (current) use of opiate analgesic; Z87.891 Personal history of nicotine dependence; R73.9 Hyperglycemia, unspecified; G47.00 Insomnia, unspecified
CPT/HCPCS: 36415; 71046; 78452; 80048; 80061; 83036; 83735; 83880; 84443; 84484; 85025; 85379; 93005; 93017; 93306; 99285; A9500; J7030; Q9957; A4216; C8929; J0153; J2405; J2785

== ENCOUNTER → 2024-07-02 | Outpatient (CLI) | payer MEDICARE, OTHER, SELFPAY ==
[2024-07-02 18:55] LABS: BNP,B-Type NATRIURETIC PEPTIDE 387.4 pg/mL (0-100)
== END | disposition home or self-care (01) ==
PROVIDERS: PCP Internal Medicine; Referring Provider Internal Medicine; Visit Provider Internal Medicine
DX: R06.01 Orthopnea (principal)
CPT/HCPCS: 36415; 83880

== ENCOUNTER → 2024-11-22 | Outpatient (CLI) | payer MEDICARE, OTHER, SELFPAY ==
[2024-11-22 15:58] LABS: Absolute Lymphocyte Count 1.84 X10^3/uL (0.83-4.51); Absolute Neutrophil Count 4.9 X10^3/uL (2.0-7.7); Basophil# 0.06 X10^3/uL; Basophil% 0.7 % (0-1); Eosinophil# 0.71 X10^3/uL; Eosinophils% 8.6 % (0-5); Hematocrit 39.1 % (37-47); Lymphocyte # 1.84 X10^3/ul (0.83-4.51); Lymphocyte % 22.3 % (19-41); Mean Corp Hgb Conc 33.2 g/dL (32-36); Mean Corpuscular Hgb 29.1 pg (27.0-32.0); Mean Corpuscular Volume 87.5 fL (81-99); Mean Platelet Vol. 12.7 fl (6.2-12.0); Monocyte% 8.5 % (0-10); NRBC Flagged by Analyzer 0 % (0-5); Neutrophil # 4.92 X10^3/uL (2.7-7.7); Neutrophil % 59.7 % (47-70); Platelet Count 177 K/mm3 (150-450); RBC Distribution Width CV 12.8 % (11.6-14.6); RBC Distribution Width SD 40.3 fl (35.1-43.9); Red Blood Count 4.47 M/mm3 (4.2-5.4); White Blood Count 8.3 K/mm3 (4.4-11.0)
== END | disposition home or self-care (01) ==
LOC: MTLAB 11:39
PROVIDERS: PCP Internal Medicine; Referring Provider Internal Medicine Pulmonary Disease; Visit Provider Internal Medicine Pulmonary Disease
DX: R06.2 Wheezing (principal)
CPT/HCPCS: 36415; 85025

== ENCOUNTER → 2025-01-24 | Outpatient (CLI) | payer MEDICARE, OTHER, SELFPAY | END | disposition home or self-care (01) | PROVIDERS: PCP Internal Medicine; Referring Provider Internal Medicine; Visit Provider Internal Medicine | DX: R43.9 Unspecified disturbances of smell and taste (principal) ==

== ENCOUNTER 2025-01-31 23:58 | Emergency (ER) | payer MEDICARE, OTHER, SELFPAY ==
[2025-02-01] VITALS: BP 180/80; PULSE 103; RESP 12; TEMP 36.9; O2SAT 98; BMI 27.3
[2025-02-01] MEDS: 0.9% Normal Saline (1000mL) 1,000 ML 1000 ML IV (00:26)
[2025-02-01 00:31] LABS: Hematocrit 38.7 % (37-47); Hemoglobin 13.0 g/dL (12.0-15.0); Immature Granulocytes Count 0.040 X10^3/uL (0.0-0.0); Mean Corp Hgb Conc 33.6 g/dL (32-36); Mean Corpuscular Volume 86.4 fL (81-99); Mean Platelet Vol. 11.1 fl (6.2-12.0); NRBC Flagged by Analyzer 0 % (0-5); Platelet Count 215 K/mm3 (150-450); RBC Distribution Width CV 12.3 % (11.6-14.6); RBC Distribution Width SD 38.5 fl (35.1-43.9); Red Blood Count 4.48 M/mm3 (4.2-5.4); White Blood Count 12.7 K/mm3 (4.4-11.0)
[2025-02-01 01:03] LABS: Color, Urine Yellow (Yellow); Glucose, Dipstick Normal (Normal); Ketone-Dipstick Negative (Negative); Leukocyte Esterase-Dipstick Negative /ul (Negative); Nitrite-Dipstick Negative (Negative); Occult Blood-Urine 10 /ul (Negative); Protein-Dipstick 15 mg/dl (Negative); Specific Gravity, Urine 1.010 (1.002-1.030); Urine Bilirubin Dipstick Negative (Negative)
[2025-02-01 01:37] VITALS: BP 167/81; BP 175/76; BP 179/85; PULSE 103; PULSE 104; PULSE 96
[2025-02-01 01:57] LABS: BUN 8 mg/dL (4-19); BUN/Creat Ratio 12.5 RATIO (10-20); Calcium,Total 9.3 mg/dL (7.6-11.0); Carbon Dioxide 22.8 mmol/L (21.0-32.0); Estimated Creatinine Clearance 50.59 ml/min (50-250); Glucose 157 mg/dL (70-99)
[2025-02-01 02:00] VITALS: BP 179/85; PULSE 93; RESP 16; O2SAT 96
[2025-02-01 02:43] LABS: Anion Gap 14 (5-15); Chloride 103 mmol/L (98-108); Potassium 3.6 mmol/L (3.3-5.1)
[2025-02-01 02:53] VITALS: BP 170/83; PULSE 98; RESP 16; TEMP 36.9; O2SAT 97
== END 2025-02-01 03:01 | disposition home or self-care (01) ==
PROVIDERS: Emergency Provider Emergency Medicine; PCP Internal Medicine; Visit Provider Emergency Medicine
DX: I10 Essential (primary) hypertension (principal); R11.2 Nausea with vomiting, unspecified; Z87.891 Personal history of nicotine dependence; E78.00 Pure hypercholesterolemia, unspecified; J30.2 Other seasonal allergic rhinitis; I25.10 Atherosclerotic heart disease of native coronary artery without angina pectoris; E86.0 Dehydration; R09.81 Nasal congestion; H35.30 Unspecified macular degeneration; K21.9 Gastro-esophageal reflux disease without esophagitis
CPT/HCPCS: 80048; 81002; 85025; 93005; 96361; 96374; 96375; 96376; 99284; A4216; J2405

== ENCOUNTER → 2025-02-12 | Outpatient (CLI) | payer MEDICARE, OTHER, SELFPAY ==
--- NOTE | 2025-02-12 14:50 | BD_ITS ---
PROCEDURE: DEXA BONE DENSITY STUDY 02/12/2025 REASON FOR EXAM: F, age 79 y/o . Postmenopausal. TECHNIQUE: DEXA BONE DENSITY STUDY COMPARISON: Prior study dated January 05, 2023. FINDINGS: BMD and T-SCORES Lumbar spine: 0.814 g/cm2, T-score -1.9 Levels: L1 through L4 Change from prior: Loss of 4.1%. Left femoral neck: 0.711 g/cm2, T-score -1.2 Femoral neck comparison data not recommended for monitoring change. Left total hip: 0.865 g/cm2, T-score -0.6 Change from prior: Loss of 5.4%. Right femoral neck: 0.695 g/cm2, T-score -1.4 Femoral neck comparison data not recommended for monitoring change. Right total hip: 0.880 g/cm2, T-score -0.5 Change from prior: Loss of 4.3%. The World Health Organization has defined the following categories based on bone density: Normal bone density: T-score equal to or greater than -1.0 Osteopenia: T-score between -1.0 and -2.5 Osteoporosis: T-score equal to or less than -2.5 . The patient does meet the pharmacological treatment recommendations for prevention of osteoporosis. BD/Dexa Bone Density Study IMPRESSION: OSTEOPENIA. Recommend follow-up as clinically warranted. Reading Location: [place] [id number]
--- NOTE | 2025-02-12 14:50 | BD_ITS ---
PROCEDURE: DEXA BONE DENSITY STUDY 02/12/2025 REASON FOR EXAM: F, age 79 y/o . Postmenopausal. TECHNIQUE: DEXA BONE DENSITY STUDY COMPARISON: Prior study dated January 05, 2023. FINDINGS: BMD and T-SCORES Lumbar spine: 0.814 g/cm2, T-score -1.9 Levels: L1 through L4 Change from prior: Loss of 4.1%. Left femoral neck: 0.711 g/cm2, T-score -1.2 Femoral neck comparison data not recommended for monitoring change. Left total hip: 0.865 g/cm2, T-score -0.6 Change from prior: Loss of 5.4%. Right femoral neck: 0.695 g/cm2, T-score -1.4 Femoral neck comparison data not recommended for monitoring change. Right total hip: 0.880 g/cm2, T-score -0.5 Change from prior: Loss of 4.3%. The World Health Organization has defined the following categories based on bone density: Normal bone density: T-score equal to or greater than -1.0 Osteopenia: T-score between -1.0 and -2.5 Osteoporosis: T-score equal to or less than -2.5 . The patient does meet the pharmacological treatment recommendations for prevention of osteoporosis. BD/Dexa Bone Density Study IMPRESSION: OSTEOPENIA. Recommend follow-up as clinically warranted. Reading Location: [place] [address]
== END | disposition home or self-care (01) ==
LOC: OPBD 14:48
PROVIDERS: PCP Internal Medicine; Referring Provider Internal Medicine; Visit Provider Internal Medicine
DX: M85.80 Other specified disorders of bone density and structure, unspecified site (principal); Z78.0 Asymptomatic menopausal state
CPT/HCPCS: 77080

== ENCOUNTER 2025-05-01 14:15 | Inpatient (IN) | payer MEDICARE, OTHER, SELFPAY ==
[2025-05-01] VITALS (10 sets, daily range): BP systolic 142–170; BP diastolic 67–84; PULSE 74–97; RESP 14–18; TEMP 36.4–36.9; O2SAT 93–98; BMI 27.1; BMI 26.7
--- NOTE | 2025-05-01 15:12 | EKG12_ITS ---
Test Reason : Blood Pressure : */* mmHG Vent. Rate : 70 BPM Atrial Rate : 70 BPM P-R Int : 150 ms QRS Dur : 76 ms QT Int : 434 ms P-R-T Axes : 32 3 72 degrees QTcB Int : 468 ms Normal sinus rhythm Normal ECG Confirmed by Jr Humphries ([id number]), purchase request editor JODI ROSA ([id number]) on 05/03/2025 7:16:49 AM Referred By: Confirmed By: Jr Humphries
--- NOTE | 2025-05-01 15:13 | CT_ITS ---
PROCEDURE: STROKE BRAIN/HEAD WITHOUT CONT 05/01/2025 REASON FOR EXAM: RIGHT SIDED WEAKNESS/NUMBNESS TECHNIQUE: Procedure Code: CTBR.ST Modality: CT Procedure: STROKE BRAIN/HEAD WITHOUT CONT Coronal and Sagittal reconstruction series were provided. One or more dose reduction techniques were used (e.g., Automated exposure control, adjustment of the mA and/or kV according to patient size, use of iterative reconstruction technique. RADIATION DOSE SUMMARY: DLP: 813 mGycm COMPARISON: None FINDINGS: There is no acute infarct, intracranial hemorrhage, or mass effect. There is no hydrocephalus or significant midline shift. There is moderate chronic microvascular ischemic changes and mild parenchymal volume loss. No acute, depressed calvarial fractures. No large scalp hematomas. The paranasal sinuses are clear. CT/STROKE Brain/Head without Cont IMPRESSION: No acute, large territorial infarction. Dr. Mesa was notified by Kentrell Luna at 4:20 pm EST on 05/01/2025. Reading Location: [id number]
--- NOTE | 2025-05-01 15:20 | EDS_ITS ---
HPI History of Present Illness Chief Complaint: Neuro S/Sx Informant: patient and spouse/S.O. Narrative Narrative: Patient is an 79-year-old female presenting with right-sided numbness and weakness following a recent brain scan under sedation. Patient is accompanied by a family member who is supplementing history. - Reports onset of right-sided numbness from head to toe following a brain scan under sedation two days ago. - Describes numbness as partial, with difficulty moving right arm and leg. - Has been tripping and unable to walk straight due to right leg weakness. - Denies dizziness, attributing balance issues to leg weakness. - No chest pain, dyspnea, abdominal pain, nausea, or emesis. - No tinnitus or otalgia. - Reports difficulty thinking and understanding others since onset. - Denies headaches or emesis. - Underwent cataract surgery last month. - Was taking daily aspirin but discontinued prior to eye surgery; has not resumed. [facility] Medical History COPD (chronic obstructive pulmonary disease) Irregular heart beat Hypertension Bladder mass Loss of hearing Wears contact lenses History of steroid therapy Bladder disease Fatty liver Back pain Migraine headache History of hiatal hernia History of diverticulitis Pneumonia Gastric reflux Former smoker Atelectasis of both lungs Shortness of breath on exertion Leg cramps History of edema History of echocardiogram History of stress test Pain Left foot pain Left ankle pain Hay fever Arthritis Home Medications ?Medication ?Instructions ?Recorded ?Last Taken ?Type omeprazole 20 mg capsule,delayed 40 mg PO DAILY acid r eflux 11/08/13 09/24/18 History release Clamara Estrogen Patch 0.05 mg TRANSDERM. QWEEK 06/24/24 History menopausal symptoms cholecalciferol (vitamin D3) 250 1,250 unit PO QWEEK 0 11/15/14 06/24/24 History mcg (10,000 unit) tablet hydrocodone-acetaminophen 5-325mg 1 - 2 tab PO Q4H PRN PRN Pain #20 11/22/14 09/24/18 Rx 5mg-325mg TABLETS albuterol (refill) 90 90 mcg inhalation PRN PRN SO B 11/30/21 Unknown History mcg/actuation aerosol inhaler aspirin 81 mg tablet,delayed 81 mg PO BREAKFAST 90 day s #90 tabs 07/26/24 Unknown Rx release Held on 05/01/25. Instructions: had eye surgery needs to starting it again when eye gets bet atorvastatin 40 mg tablet 40 mg PO QHS #90 tabs Unknown Rx metoclopramide HCl 10 mg tablet 10 mg PO 4X/DAY PRN He adache #20 02/01/25 Unknown Rx tabs Allergy/AdvReac Type Severity Reaction Status Date / Time codeine Allergy Intermediate Nausea/Vom/ Verified 05/01/25 14:16 Diarrhea gabapentin Allergy Rash Verified 05/01/25 14:16 Iodinated Contrast Media Allergy Hives Verified 05/01/25 14:16 (Iodinated Contrast Media - IV Dye) tetracycline (Tetracycline) Allergy Hives Verified 05/01/25 14:16 Family History Mother Hypertension Mitral valve prolapse Surgical History Hx of nasal septoplasty Hx of bladder repair surgery Hx of arthroplasty Hx of laparoscopy Hx of cholecystectomy H/O: hysterectomy Social History (Updated 02/01/25 @ 01:[address] Renato Tijerina MD) household members: spouse Smoking Status: Former smoker alcohol intake: never substance use type: does not use caffeine: No ROS ROS ED Constitutional Constitutional ED: Denies chills or fever(s) Eyes Eyes: Denies change in vision or diplopia ENT ENT ED: Denies rhinorrhea or sore throat Cardiovascular Cardiovascular: Denies chest pain or palpitations Respiratory/Chest Respiratory/Chest: Denies cough or dyspnea Gastrointestinal Gastrointestinal: Denies abdominal pain, diarrhea, nausea or vomiting Genitourinary Genitourinary ED: Denies dysuria or hematuria Musculoskeletal Musculoskeletal: Denies back pain or neck pain Integumentary Denies abscess or rash Neurologic Neurologic: Reports paresthesias and weakness; Denies headache(s) Psychiatric Psychiatric: Denies anxiety or suicidal thoughts EXAM Physical Exam Narrative Exam Narrative: General: No acute distress. HEENT: No facial droop, extraocular movements intact, visual blackman intact. CV: Heart sounds normal, no murmurs. Resp: Lungs clear to auscultation bilaterally. Abd: Soft, non-tender, non-distended. Neuro: Able to show teeth and close eyes tightly; mild weakness in right arm and leg; able to perform bhmusn-da-cgag and tesa-hf-ahtb tests; able to identify objects and follow commands; partial numbness on right side of body. Const Vital Signs: 05/01/25 14:17 05/01/25 15:12 05/01/25 15:16 Temperature 98.1 F Temperature Source Oral Pulse Rate 83 88 Respiratory Rate 14 Blood Pressure 156/80 H 153/76 H Blood Pressure Mean 105 101 Pulse Ox 96 95 Oxygen Delivery Method Room Air Room Air 05/01/25 16:00 05/01/25 16:46 Temperature Temperature Source Pulse Rate 82 88 Respiratory Rate 16 Blood Pressure 147/84 H 147/72 H Blood Pressure Mean 105 97 Pulse Ox 93 Oxygen Delivery Method Room Air Eyes PERRL and EOMs intact bilaterally Eyes Narrative: Visual blackman intact Back/Spine Back/Spine Narrative: Full range of motion without pain or limitation Extremity normal to inspection General Extremety ED: Negative for edema or tenderness General Extremity: Negative for edema Skin no wounds Rashes: no rashes MDM MDM MDM Narrative Medical decision making narrative: Assessment: The patient is a 79-year-old female presenting for two-day history of right-sided numbness, weakness, gait instability, and difficulty comprehending speech that began after receiving IV sedation for a brain scan. Exam shows mild right arm and leg weakness with partial sensory loss, intact cranial nerves, and no facial droop. Differential includes small cerebrovascular accident versus prolonged anesthetic effect; the persistence of symptoms beyond the expected anesthetic window makes stroke more likely. Non-contrast CT head is negative for acute findings, EKG shows sinus rhythm, and routine labs are unremarkable, so etiology remains unclear and warrants inpatient work-up. Plan: - No stroke alert activated given onset >24 h and stable presentation - Discussed results and need for further evaluation with patient and family - Admission arranged to hospitalist service for MRI/MRA and neurologic work-up - Provided warm blanket for comfort Diagnostics: - Non-contrast CT head: no acute intracranial hemorrhage or infarct; reviewed images and report with radiologist, findings concurred - EKG: sinus rhythm, no acute ischemic changes - Labs: routine panel unremarkable Consultations: - Hospitalist ? accepted admission for continued evaluation and management Reevaluations: - Reassessment after imaging: vital signs stable, symptoms unchanged, minimally hypertensive to 140s systolic, decision made for admission Diagnoses: Right sided numbness; Right sided weakness; Difficulty comprehending speech Lab Data Attestation: I reviewed the patient's lab results. Labs: Laboratory Results - last 24 hr 05/01/25 05/01/25 14:30 14:34 WBC 11.1 H RBC 4.68 Hgb 13.6 Hct 40.7 MCV 87.0 MCH 29.1 MCHC 33.4 RDW Std Deviation 41.4 RDW Coeff of Jennifer 13.4 Plt Count 236 MPV 11.6 Immature Gran % (Auto) 0.500 Neut % (Auto) 64.6 Lymph % (Auto) 27.0 [place] % (Auto) 6.8 Eos % (Auto) 0.6 Baso % (Auto) 0.5 Absolute Neuts (auto) 7.2 Absolute Lymphs (auto) 3.00 Nucleated RBC % 0 PT 13.4 INR 1.0 APTT 31.6 Sodium 139 Potassium 3.8 Chloride 104 Carbon Dioxide 19.7 L Anion Gap 15 BUN 16 Creatinine 0.60 L Estim Creat Clear Calc 50.45 Est GFR (MDRD) Non-Af 91 BUN/Creatinine Ratio 26.3 H Glucose 126 H Hemoglobin A1c 7.9 H Calcium 9.1 Troponin T High Sens 8 POC Glucose 123 H Radiography Diagnostic Testing: Clinical Impression(s) from Imaging Studies Brain CT 05/01/25 15:13 IMPRESSION: No acute, large territorial infarction. Dr. Mesa was notified by Kentrell Luna at 4:20 pm EST on 05/01/2025. Reading Location: [facility] Imaging: - (Today) CT Head: Negative for acute findings. Independently interpreted by , Alejandro Mesa. Rhythm Strip Rhythm Strip: Sinus Rhythm Rate: 70 Ectopy: None EKG Initial EKG: Attestation: I personally reviewed and interpreted this EKG as follows: Interpretation: Sinus Rhythm and No Acute Injury Pattern Comments: Nml axis & intervals; nml EKG Management Discussion w/another healthcare provider: Hospitalist and Radiologist Discharge Plan Dx/Rx/DC Orders Clinical Impression: Right sided numbness, Acute right-sided weakness, Difficulty comprehending speech Disposition Disposition: Acute Care Hospital [facility] Discharge Date/Time: 05/01/25 18:53 NIHSS NIHSS 1a. Level of Consciousness: 0 - Alert; keenly responsive 1b. LOC Questions: 0 - Answers BOTH questions correctly 1c. LOC Commands: 0 - Performs BOTH tasks correctly 2. Best Gaze: 0 - Normal 3. Visual: 0 - No visual loss 4. Facial Palsy: 0 - Normal symmetrical movements 5a. Left Arm: 0 - No drift; arm holds 90 (or 45) degrees for full 10 seconds 5b. Right Arm: 1 - Drift; arm drifts downward but doesn?t hit the bed 6a. Left Le - No drift; leg holds 30-degree position for full 5 seconds 6b. Right Le - Drift; leg falls by the end of 5-seconds, but does not hit bed 7. Limb Ataxia: 0 - Absent 8. Sensory: 1 - Ubyw-tz-qiiungqo sensory loss; 9. Best Language: 0 - No aphasia; normal 10. Dysarthria: 0 - Normal 11. Extinction and Inattention: 0 - No abnormality Total: 3 Stroke Questions Stroke Team Activated: No (outside 24 hr window) IV Thrombolytic Administered: No (timing)
[2025-05-01 15:47] LABS: Hematocrit 40.7 % (37-47); Hemoglobin 13.6 g/dL (12.0-15.0); Immature Granulocytes Count 0.050 X10^3/uL (0.0-0.0); Mean Corp Hgb Conc 33.4 g/dL (32-36); Mean Corpuscular Volume 87.0 fL (81-99); Mean Platelet Vol. 11.6 fl (6.2-12.0); NRBC Flagged by Analyzer 0 % (0-5); Platelet Count 236 K/mm3 (150-450); RBC Distribution Width CV 13.4 % (11.6-14.6); RBC Distribution Width SD 41.4 fl (35.1-43.9); Red Blood Count 4.68 M/mm3 (4.2-5.4); White Blood Count 11.1 K/mm3 (4.4-11.0)
[2025-05-01 15:51] LABS: Prothrombin Time (Protime)PT. 13.4 SECONDS (11.7-14.9)
[2025-05-01 15:52] LABS: Partial Thromboplast Time 31.6 Seconds (24.1-36.2)
[2025-05-01 16:44] LABS: Anion Gap 15 (5-15); BUN 16 mg/dL (4-19); BUN/Creat Ratio 26.3 RATIO (10-20); Calcium,Total 9.1 mg/dL (7.6-11.0); Carbon Dioxide 19.7 mmol/L (21.0-32.0); Chloride 104 mmol/L (98-108); Estimated Creatinine Clearance 50.45 ml/min (50-250); Glucose 126 mg/dL (70-99); Potassium 3.8 mmol/L (3.3-5.1); Troponin T High Sensitivity 8 ng/L (<=14)
--- NOTE | 2025-05-01 17:08 | HP.PCM.HOS_ITS ---
HPI - General General Date of Admission: 05/01/25 Date of Service: 05/01/25 Chief Complaint: Right sided numbness/tingling HPI Narrative DINAH COOL, is a 79 F who presented to [facility] ED on 05/01/2025 for right-sided numbness/tingling. Medical history significant for CAD without stenting, chronic back pain with multiple prior back surgeries and GERD. Patient lives at home with her . She reported that she had a brain scan done 2 days ago at [facility] in [place]. They gave her some kind of contrast for the scan and she reports having right sided numbness/tingling from her head down to her toes since that time but has not seemed to get better or worse, so she came in today for further evaluation. I reviewed her recent [facility] records. She completed an MR head with and without contrast at [facility] on 04/29, see report below. It appears this was ordered by her PCP Dr. Arana for decreased taste and smell. She reports an allergy to IV contrast in the past and notes that she was unsure of which IV contrast agent they gave her for the MRI, but she has had this numbness and tingling in her right side since then. Denies any other signs or symptoms concerning for an allergic reaction. In the ED here she was hypertensive to the 150s 160s systolic but otherwise in normal sinus rhythm, normotensive and stable on room air at rest. CT brain was unremarkable. CBC and BMP were fairly benign. Given her presentation and concern for stroke, hospitalist was contacted for admission. I saw the patient at bedside in the ED, is present. Patient was sitting up in bed and was reporting moderate mid to low back pain currently that is consistent with her chronic back pain worsened by laying in the bed in the ED. She otherwise reported ongoing numbness/tingling on the right side. She reported right leg weakness that has led to difficulty with ambulation but notably on neuroexam her strength was intact in her right upper and lower extremities. She also reports difficulty thinking and understanding others since symptom onset. No other neurologic deficits noted. She denied any other acute concerns this time. MR head with and without contrast report from 04/29: FINDINGS: Brain Parenchyma: There is faint restricted diffusion with associated FLAIR abnormality involving the left lateral hippocampus without associated mass effect or edema. There is minimal associated enhancement in the lateral left posterior hippocampus. There are two small areas of curvilinear subcortical enhancement within the left occipital lobe one of which demonstrates faint associated diffusion abnormality. On the postcontrast coronal imaging there is severe stenosis/focal occlusion of the left [employer] in the P2 segment as well as more distally with segmental reconstitution. Patchy and confluent foci of FLAIR hyperintensity in the supratentorial white matter and brainstem with more prominence along the trigones is nonspecific although most compatible with moderate chronic microvascular angiopathy. Ventricles and Sulci: Moderate cerebral volume loss, with commensurate ventricular and sulcal enlargement. Skull Base: Hypothalamic and pituitary region are grossly normal. Craniocervical junction is normal. Extracranial soft tissues: Mild paranasal sinus mucosal thickening IMPRESSION: 1. Diffusion and FLAIR abnormality involving the left hippocampus with minimal associated enhancement. Additional small curvilinear areas of subcortical enhancement in the left occipital lobe. These findings are favored to represent subacute infarcts given the concurrent suspected severe stenosis/focal occlusions in the left [employer] TE[employer]IAN IN[employer] as discussed above. The hippocampal findings can also be seen with postsurgical changes or subacute encephalitis although this is felt less likely given the concurrent [employer]IAN IN[employer] findings however clinical correlation recommended. [facility] Medical History COPD (chronic obstructive pulmonary disease) Irregular heart beat Hypertension Bladder mass Loss of hearing Wears contact lenses History of steroid therapy Bladder disease Fatty liver Back pain Migraine headache History of hiatal hernia History of diverticulitis Pneumonia Gastric reflux Former smoker Atelectasis of both lungs Shortness of breath on exertion Leg cramps History of edema History of echocardiogram History of stress test Pain Left foot pain Left ankle pain Hay fever Arthritis Home Medications ?Medication ?Instructions ?Recorded ?Last Taken ?Type omeprazole 20 mg capsule,delayed 40 mg PO DAILY acid r eflux 11/08/13 09/24/18 History release Clamara Estrogen Patch 0.05 mg TRANSDERM. QWEEK 06/24/24 History menopausal symptoms cholecalciferol (vitamin D3) 250 1,250 unit PO QWEEK 0 11/15/14 06/24/24 History mcg (10,000 unit) tablet hydrocodone-acetaminophen 5-325mg 1 - 2 tab PO Q4H PRN PRN Pain #20 11/22/14 09/24/18 Rx 5mg-325mg TABLETS albuterol (refill) 90 90 mcg inhalation PRN PRN SO B 11/30/21 Unknown History mcg/actuation aerosol inhaler aspirin 81 mg tablet,delayed 81 mg PO BREAKFAST 90 day s #90 tabs 07/26/24 Unknown Rx release Held on 05/01/25. Instructions: had eye surgery needs to starting it again when eye gets bet atorvastatin 40 mg tablet 40 mg PO QHS #90 tabs Unknown Rx metoclopramide HCl 10 mg tablet 10 mg PO 4X/DAY PRN He adache #20 02/01/25 Unknown Rx tabs Allergy/AdvReac Type Severity Reaction Status Date / Time codeine Allergy Intermediate Nausea/Vom/ Verified 05/01/25 14:16 Diarrhea gabapentin Allergy Rash Verified 05/01/25 14:16 Iodinated Contrast Media Allergy Hives Verified 05/01/25 14:16 (Iodinated Contrast Media - IV Dye) tetracycline (Tetracycline) Allergy Hives Verified 05/01/25 14:16 Family History Mother Hypertension Mitral valve prolapse Surgical History Hx of nasal septoplasty Hx of bladder repair surgery Hx of arthroplasty Hx of laparoscopy Hx of cholecystectomy H/O: hysterectomy Social History (Updated 02/01/25 @ 01:[address] Renato Tijerina MD) household members: spouse Smoking Status: Former smoker alcohol intake: never substance use type: does not use caffeine: No ROS Constitutional Constitutional: Denies chills, fatigue or fever(s) Cardiovascular Cardiovascular: Denies chest pain Respiratory/Chest Respiratory/Chest: Denies shortness of breath at rest Gastrointestinal Gastrointestinal: Denies abdominal pain Musculoskeletal Musculoskeletal: Reports back pain; Denies arthralgias or myalgias Neurologic Neurologic: Reports numbness, paresthesias and tingling; Denies abnormal speech, confusion, disequilibrium, dizziness, focal weakness or headache(s) Vital Signs Vital Signs Vital Signs: 05/01/25 14:17 05/01/25 15:12 05/01/25 15:16 Temperature 98.1 F Temperature Source Oral Pulse Rate 83 88 Respiratory Rate 14 Blood Pressure 156/80 H 153/76 H Blood Pressure Mean 105 101 Pulse Ox 96 95 Oxygen Delivery Method Room Air Room Air 05/01/25 16:00 05/01/25 16:46 Temperature Temperature Source Pulse Rate 82 88 Respiratory Rate 16 Blood Pressure 147/84 H 147/72 H Blood Pressure Mean 105 97 Pulse Ox 93 Oxygen Delivery Method Room Air Weight Weight: 67.3 kg Body Mass Index (BMI) 27.1 Physical Exam Const alert, oriented x3, no apparent distress and average body habitus Constitutional Narrative: Elderly female, hard of hearing, mildly anxious appearing, mildly uncomfortable due to chronic back pain, otherwise sitting up in bed and answering questions appropriately. General Appearance: cooperative and comfortable HEENT normocephalic, head/scalp atraumatic, hearing grossly normal bilaterally, nasal mucous membranes and turbinates normal and moist oral mucous membranes Eyes PERRL, EOMs intact bilaterally and conjunctivae normal Neck full ROM Chest inspection of chest normal Resp normal respiratory effort, normal air movement, no use of accessory muscles and clear to auscultation bilaterally Cardio regular rate, regular rhythm, no murmurs and peripheral pulses 2+ throughout GI normal to inspection, nondistended, normoactive bowel sounds, soft to palpation, non-tender and non-distended Back/Spine normal ROM Extremity normal to inspection, full ROM and no pedal edema Skin no rashes or lesions noted Neuro oriented x3, CN's II-XII intact bilaterally, moves all extremities and no focal motor deficits Coordination / Balance: shicah-bj-ftbo test normal and obye-kv-squd test normal Speech: speech normal Motor Exam: strength 5/5 throughout Psych mental status grossly normal Mood & Affect: anxious Results Lab / Micro Data 05/01/25 14:34 05/01/25 14:34 Labs: Laboratory Results - last 24 hr 05/01/25 14:30: POC Glucose 123 H 05/01/25 14:34: WBC 11.1 H, RBC 4.68, Hgb 13.6, Hct 40.7, MCV 87.0, MCH 29.1, MCHC 33.4, RDW Std Deviation 41.4, RDW Coeff of Jennifer 13.4, Plt Count 236, MPV 11.6, Immature Gran % (Auto) 0.500, Neut % (Auto) 64.6, Lymph % (Auto) 27.0, [place] % (Auto) 6.8, Eos % (Auto) 0.6, Baso % (Auto) 0.5, Absolute Neuts (auto) 7.2, Absolute Lymphs (auto) 3.00, Nucleated RBC % 0, PT 13.4, INR 1.0, APTT 31.6, Sodium 139, Potassium 3.8, Chloride 104, Carbon Dioxide 19.7 L, Anion Gap 15, BUN 16, Creatinine 0.60 L, Estim Creat Clear Calc 50.45, Est GFR (MDRD) Non- Af 91, BUN/Creatinine Ratio 26.3 H, Glucose 126 H, Calcium 9.1, Troponin T High Sens 8 Rhythm Strip Rhythm Strip: Sinus Rhythm Rate: 70 Ectopy: None Imaging Radiology Impression Brain CT 05/01/25 15:13 IMPRESSION: No acute, large territorial infarction. Dr. Mesa was notified by Kentrell Luna at 4:20 pm EST on 05/01/2025. Reading Location: [facility] Assessment & Plan Assessment/Plan (1) Right sided numbness: PLAN: Plan Patient is an 79-year-old female who presented to [facility] ED on 05/01/2025 with right sided numbness/tingling. 1. Strokelike symptoms, CVA rule out ? Admit under observation status to PCU. Neurology consulted. Patient had MRI head with and without contrast done at [facility] on 04/29 ordered by her PCP for reported decreased sense of taste and smell, see results in HPI. Suspect that findings on MRI head are the primary contributors to her current symptoms of right-sided numbness/tingling, gait imbalance, and difficulty understanding and speaking with others. CT brain in the ED today normal. MRI brain without contrast ordered to confirm findings from recent scan above. Other orders placed per show protocol order set. Lipid profile ordered. PT/OT/case management consulted. Notably patient had been off her baby aspirin for cataract surgery recently as below. Will resume baby aspirin and high intensity statin. Appreciate further neurology recommendations. 2. Recent right cataract surgery ? Patient had right eye cataract surgery done in early March and baby aspirin was apparently held for a short time perioperatively. Okay to continue as above. 3. History of nonobstructive CAD, hyperlipidemia ? Continue home aspirin and statin as above. 4. Chronic back pain with history of prior back surgeries ? OARRS reviewed. Continue home hydrocodone?acetaminophen every 4 hours as needed. 5. GERD ? Continue home PPI. 6. Hearing loss ? Patient with bilateral hearing loss and is hard of hearing. Complicates hospital course and care. DVT prophylaxis: SCDs CODE STATUS: Full code, verified Expected disposition: Home, TBD Total clinical time spent by myself addressing the patient's medical issues, reviewing all the data, and collaborating with patient's care team: 86 minutes. Charges/Coding Visit Charges Inpatient E&M: 18031 Init Hosp L3
[2025-05-01 18:08] LABS: Troponin T High Sens 2 HR 9 ng/L (<=14)
--- NOTE | 2025-05-01 18:10 | CASEMGMT ---
Care Management Face to Face with patient for initial transition planning/care coordination assessment in the ED.? This information writer introduced self and role at [facility]. Patient alert and oriented. Patient willing to participate in assessment and is able to answer all questions appropriately.? Care providers, pharmacy, and demographics verified. Admitting Diagnosis: Neuro s/sx Other diagnosis history: ?COPD, hypertension, bladder disease, arthritis PCP: ?Yasmeen Specialists: ?none Preferred Pharmacy: [facility] Insurance: ?Medicare Prescription Benefit: ?yes Living Will/HPOA: ?none, interested in completing while admitted LNOK: ? Living Arrangements: ?lives with in one story home.? Patient has been independent with ADLs and IADLs Transportation: ?patient drives DME: ?none HHC: ?none SNF/Rehab: ?[facility] after [facility] surgery Community Resources: ?none Behavioral Health History: ?none Patient goals: Patient wishes to discharge home. Patient denies any further needs or concerns at this time. Disposition Plan: admission to acute; RN CM/SW to follow for discharge planning needs that may arise. Cherelle Burnham, HOSPITAL SOCIAL WORKER, [employer]
[2025-05-01] MEDS: HYDROcodone Bitartrate/Apap 5/325 Tablet PO ×2 (20:01→23:57)
[2025-05-01 20:51] LABS: Troponin T High Sens 4 HR 7 ng/L (<=14)
[2025-05-01] MEDS: 0.9% Saline Lock 10 ML Syringe IV (20:54)
[2025-05-02] VITALS (7 sets, daily range): BP systolic 117–160; BP diastolic 48–82; PULSE 58–81; RESP 14–18; TEMP 36.2–36.8; O2SAT 96–98; BMI 26.7
[2025-05-02] MEDS: HYDROcodone Bitartrate/Apap 5/325 Tablet PO ×4 (04:01→19:35)
[2025-05-02 06:15] LABS: Hematocrit 39.3 % (37-47); Hemoglobin 13.1 g/dL (12.0-15.0); Mean Corp Hgb Conc 33.3 g/dL (32-36); Mean Corpuscular Volume 87.5 fL (81-99); Mean Platelet Vol. 10.8 fl (6.2-12.0); Platelet Count 215 K/mm3 (150-450); RBC Distribution Width CV 13.2 % (11.6-14.6); RBC Distribution Width SD 41.7 fl (35.1-43.9); Red Blood Count 4.49 M/mm3 (4.2-5.4); White Blood Count 10.0 K/mm3 (4.4-11.0)
[2025-05-02 06:49] LABS: Anion Gap 12 (5-15); BUN 16 mg/dL (4-19); BUN/Creat Ratio 23.6 RATIO (10-20); Calcium,Total 9.0 mg/dL (7.6-11.0); Carbon Dioxide 22.1 mmol/L (21.0-32.0); Chloride 104 mmol/L (98-108); Cholesterol 209 mg/dL (<=200); Estimated Creatinine Clearance 48.13 ml/min (50-250); Glucose 140 mg/dL (70-99); Low Density Lipoprotein Calc. 128 mg/dL; Potassium 3.9 mmol/L (3.3-5.1); Triglycerides 203 mg/dL; Very Low Density Lipoprotein 41 mg/dL (5-40); cholesterol:hdl ratio screen 5.11
[2025-05-02] MEDS: Aspirin E.C. 81 MG Tablet PO (08:04)
--- NOTE | 2025-05-02 09:20 | MRI_ITS ---
PROCEDURE: BRAIN WITHOUT CONTRAST 05/02/2025 REASON FOR EXAM: CVA RULE OUT TECHNIQUE: Procedure Code: MRIBR Modality: MR Procedure: BRAIN WITHOUT CONTRAST Multiplanar and multisequence images were obtained. COMPARISON: May 01, 2020 FINDINGS: Brain: Small patchy foci of restricted diffusion are shown in the left thalamus, left occipital lobe. No hemorrhage is seen. T2 prolongation is seen in the periventricular white matter and scattered throughout the deep and subcortical white matter of the frontal and parietal lobes. Ventricles: Mild volume loss. No hydrocephalus. Major Intracranial Vessels: Flow voids unremarkable. Sinuses: Clear Mastoids: Clear MRI/Brain without Contrast IMPRESSION: 1. Acute ischemia in a patchy distribution involving the left GREY GOODS TESTER distribution to include the left occipital lobe and left thalamus. This may be thromboembolic in nature. 2. Chronic microvascular ischemic changes, volume loss. Stroke Alert: Acute ischemia The critical findings in the findings and impression above were relayed directl y by me by telephone to Angel Guaman on 05/02/2025 at 10:17 am with readback verification. Reading Location: [id number]
--- NOTE | 2025-05-02 10:31 | PCM.PN.HOSP ---
Reason for Visit Chief Complaint: Right sided numbness/tingling Objective Data Objective Data Vital Signs: Vital Signs Temp Pulse Resp BP Pulse Ox O2 Del Method 98 F 58 L 16 117/55 L 96 Room Air 05/02/25 05:51 05/02/25 05:51 05/02/25 05:51 05/02/25 05:51 05/02/25 07:32 05/02/25 07:32 Oxygen Delivery Method Room Air Weight: 141 lb 8.588 oz Body Mass Index (BMI) 26.7 Intake & Output: Intake and Output for Last 24 Hours 04/30/25 05/01/25 05/02/25 23:59 23:59 23:59 Intake Total 600 / 600 Balance 600 / 600 Lab / Micro Data 05/02/25 06:03 05/02/25 06:03 Labs: Laboratory Results - last 24 hr 05/01/25 14:30: POC Glucose 123 H 05/01/25 14:34: WBC 11.1 H, RBC 4.68, Hgb 13.6, Hct 40.7, MCV 87.0, MCH 29.1, MCHC 33.4, RDW Std Deviation 41.4, RDW Coeff of Jennifer 13.4, Plt Count 236, MPV 11.6, Immature Gran % (Auto) 0.500, Neut % (Auto) 64.6, Lymph % (Auto) 27.0, [place] % (Auto) 6.8, Eos % (Auto) 0.6, Baso % (Auto) 0.5, Absolute Neuts (auto) 7.2, Absolute Lymphs (auto) 3.00, Nucleated RBC % 0, PT 13.4, INR 1.0, APTT 31.6, Sodium 139, Potassium 3.8, Chloride 104, Carbon Dioxide 19.7 L, Anion Gap 15, BUN 16, Creatinine 0.60 L, Estim Creat Clear Calc 50.45, Est GFR (MDRD) Non-Af 91, BUN/Creatinine Ratio 26.3 H, Glucose 126 H, Hemoglobin A1c 7.9 H, Calcium 9.1, Troponin T High Sens 8 05/01/25 17:10: Troponin T Hi Sens 2 Hr 9 05/01/25 19:16: Troponin T Hi Sens 4Hr 7 05/02/25 06:03: WBC 10.0, RBC 4.49, Hgb 13.1, Hct 39.3, MCV 87.5, MCH 29.2, MCHC 33.3, RDW Std Deviation 41.7, RDW Coeff of Jennifer 13.2, Plt Count 215, MPV 10.8, Sodium 139, Potassium 3.9, Chloride 104, Carbon Dioxide 22.1, Anion Gap 12, BUN 16, Creatinine 0.66 L, Estim Creat Clear Calc 48.13 L, Est GFR (MDRD) Non-Af 89, BUN/Creatinine Ratio 23.6 H, Glucose 140 H, Calcium 9.0, Triglycerides 203 H, Cholesterol 209 H, LDL Cholesterol, Calc 128, VLDL Cholesterol 41 H, HDL Cholesterol 41, Cholesterol/HDL Ratio 5.11 Radiography Diagnostic Testing: Radiology Impression Brain CT 05/01/25 15:13 IMPRESSION: No acute, large territorial infarction. Dr. Mesa was notified by Kentrell Luna at 4:20 pm EST on 05/01/2025. Reading Location: [id number] Brain MRI 05/02/25 09:20 IMPRESSION: 1. Acute ischemia in a patchy distribution involving the left WELL REACTIVATOR OPERATOR distribution to include the left occipital lobe and left thalamus. This may be thromboembolic in nature. 2. Chronic microvascular ischemic changes, volume loss. Stroke Alert: Acute ischemia The critical findings in the findings and impression above were relayed directly by me by telephone to Angel Guaman on 05/02/2025 at 10:17 am with readback verification. Reading Location: [id number] Rhythm Strip Rhythm Strip: Sinus Rhythm Rate: 70 Ectopy: None Physical Exam Narrative Seen and examined. Patient is stated that she has a right-sided numbness. She also does not say clearly on the right side. On right eye she had recent cataract surgery. Left eye probably she has macular degeneration Physical exam General: Alert, Oriented x3, Cooperative HEENT: Hard of hearing atraumatic, PERRLA, EOMI, Normocephalic. Right peripheral visual field is diminished, partially hemianopia. Oral: No Gingival or Mucosal Lesions/ Ulcerations Neck: Supple, No JVD, Negative Carotid Bruits Chest wall/Lungs: Air entry diminished in bilateral lung bases. No crepitation/rhonchi Cardiovascular: Regular rate and rhythm, Normal S1,S2, No M/G/R Abdomen: Bowel Sounds Present, Soft, Non Tender, Non-Distended : No dysuria. No renal angle tenderness. No suprapubic tenderness. Extremities: No edema, Capillary Refill Less than 3 Seconds Skin: No rashes, No breakdown Musculoskeletal: No Tenderness to Palpation of Joints or Extremities Neurological: Cranial nerves II-XII grossly intact, DTR 2+/4. NIHSS 2, 1 for vision and second decreased sensation over right UE, RLE and face Psych/Mental Status: Normal Affect, Appropriate. Assessment & Plan Assessment/Plan (1) Right sided numbness: PLAN: Plan Patient is an 79-year-old female who presented to [facility] ED on 05/01/2025 with right sided numbness/tingling from head to toe positive bleeding scan investigation 2 days ago. Described numbness as partial with difficulty moving right arm and leg. Currently unable to walk or straighten due to right leg weakness. No dizziness balance issue. Reports difficulty thinking understanding.. 1. Strokelike symptoms, CVA rule out ? Admit under observation status to PCU. Neurology consulted. 05/02: On exam, the patient has diminished vision on the right visual field though she had history of right eye cataract and left eye macular degeneration. Hard of hearing. NIH scale of 2. MRA head and neck ordered. Patient also said she has allergy with iodine contrast many years ago and she felt like her airway was closing/could not breathe but was not admitted unclear. She does not remember well. Discussed with the neurologist Dr. Hernandez and MRA head and neck ordered. Patient had MRI head with and without contrast done at [facility] on 04/29 ordered by her PCP for reported decreased sense of taste and smell. It was reported subacute infarct involving concurrent suspected severe stenosis/focal occlusion of left WELL REACTIVATOR OPERATOR. On postcontrast imaging it showed severe restenosis/focal occlusion of left WELL REACTIVATOR OPERATOR in P2 segment and more distally with segmental reconstitution. PT, OT, speech therapy/swallow evaluation and management, nursing NIH stroke scale, BP and glucose monitoring and control as per stroke protocol. TSH, A1c fasting lipid profile tomorrow AM. MRI brain and 2D echo with bubble contrast study ordered MRI brain shows acute ischemia and patchy distal involving left WELL REACTIVATOR OPERATOR distribution to include left occipital lobe and left thalamus may be thromboembolic in nature. Chronic microvascular ischemic changes with volume loss. Last echo in June 2024 shows mild MR mild TR PASP 45, EF 65 to 70% with moderate asymmetric septal hypertrophy. Stage II diastolic dysfunction. No RWMA Lipid profile shows elevated TC 209, TG 203, LDL 128 therefore dyslipidemia. A1c 7.9%. TSH ordered. Echo ordered. 2. Recent right cataract surgery ? Patient had right eye cataract surgery done in early March and baby aspirin was apparently held for a short time perioperatively. Okay to continue as above. 3. History of nonobstructive CAD, hyperlipidemia ? Continue home aspirin and statin as above. 4. Chronic back pain with history of prior back surgeries ? OARRS reviewed. Continue home hydrocodone?acetaminophen every 4 hours as needed. 5. GERD ? Continue home PPI. 6. Hearing loss ? Patient with bilateral hearing loss and is hard of hearing. Complicates hospital course and care. DVT prophylaxis: SCDs CODE STATUS: Full code, verified Laboratory Results 05/01/25 14:34: Sodium 139, Potassium 3.8, Chloride 104, Carbon Dioxide 19.7 L, Anion Gap 15, BUN 16, Creatinine 0.60 L, Estim Creat Clear Calc 50.45, Est GFR (MDRD) Non-Af 91, BUN/Creatinine Ratio 26.3 H, Glucose 126 H, Hemoglobin A1c 7.9 H, Calcium 9.1, Troponin T High Sens 8 05/01/25 17:10: Troponin T Hi Sens 2 Hr 9 05/01/25 19:16: Troponin T Hi Sens 4Hr 7 05/02/25 06:03: WBC 10.0, RBC 4.49, Hgb 13.1, Hct 39.3, MCV 87.5, MCH 29.2, MCHC 33.3, RDW Std Deviation 41.7, RDW Coeff of Jennifer 13.2, Plt Count 215, MPV 10.8, Sodium 139, Potassium 3.9, Chloride 104, Carbon Dioxide 22.1, Anion Gap 12, BUN 16, Creatinine 0.66 L, Estim Creat Clear Calc 48.13 L, Est GFR (MDRD) Non-Af 89, BUN/Creatinine Ratio 23.6 H, Glucose 140 H, Calcium 9.0, Triglycerides 203 H, Cholesterol 209 H, LDL Cholesterol, Calc 128, VLDL Cholesterol 41 H, HDL Cholesterol 41, Cholesterol/HDL Ratio 5.[address] 05/01/25 15:13 IMPRESSION: No acute, large territorial infarction. Brain MRI 05/02/25 09:20 IMPRESSION: 1. Acute ischemia in a patchy distribution involving the left WELL REACTIVATOR OPERATOR distribution to include the left occipital lobe and left thalamus. This may be thromboembolic in nature. 2. Chronic microvascular ischemic changes, volume loss. Charges/Coding Visit Charges Inpatient E&M: 31375 Subs Hosp L2 NIHSS NIHSS Nursing Documentation NIHSS Nursing Documentation: NIHSS: Ischemic Stroke/TIA Start: 05/01/25 19:12 Text: For ICU Patients: NIH sroke scale at Status: Complete presentation and every 2 hours or with change in RN caregiver Freq: Q4H Protocol: Activity Type Activity Date Activity User E-sign Co-sign Detail Recorded Client Recorded Date Recorded By Document 05/01/25 19:39 RPS desktop 05/01/25 19:48 RPS 05/01/25 19:39 NIH Stroke Scale [NIHSS] A score of 0 is normal or asymptomatic . Total possible score is 42. Inpatient: RN or Physician to activate a stroke alert for onset of new stroke symptoms or with NIHSS increase >/= 3 points. Following change in neurological status, NIHSS will be performed per physician order or more frequently PRN. -1a. Level of Consciousness 0 - Alert; keenly responsive -1b. LOC Questions 0 - Answers BOTH questions correctly -1c. LOC Commands 0 - Performs BOTH tasks correctly -2. Best Gaze 0 - Normal -3. Visual 0 - No visual loss -4. Facial Palsy 0 - Normal symmetrical movements -5a. Left Arm 0 - No drift; arm holds 90 ( or 45) degrees for full 10 seconds -5b. Right Arm 0 - No drift; arm holds 90 ( or 45) degrees for full 10 seconds -6a. Left Leg 0 - No drift; leg holds 30- degree position for full 5 seconds -6b. Right Leg 0 - No drift; leg holds 30- degree position for full 5 seconds -7. Limb Ataxia 0 - Absent -8. Sensory 1 - Mild-to- moderate sensory loss; -9. Best Language 0 - No aphasia; normal -10. Dysarthria 0 - Normal -11. Extinction and Inattention 0 - No abnormality -Total 1 Query Text:A score of 0 is normal or asymptomatic. Total possible score is 42 . ED: Notify Physician for NIHSS increase by > / = 3 points. Inpatient: RN or Physician to activate a stroke alert for NIHSS increase of > / = 3 points. Coma Scale [Assess] -Eye Opening Spontaneous -Motor Obeys Commands -Verbal Oriented [Total] -Coma Scale Total 15 NIHSS: Ischemic Stroke/TIA Start: 05/01/25 19:12 Text: For PCU Patients: NIH and Neuro Check every 4 Status: Active hours, PRN and with change in RN caregiver. Freq: [id number] Protocol: Activity Type Activity Date Activity User E-sign Co-sign Detail Recorded Client Recorded Date Recorded By Document 05/02/25 05:57 [facility] [id number] 05/02/25 06:00 [facility] 05/02/25 05:57 NIH Stroke Scale [NIHSS] A score of 0 is normal or asymptomatic . Total possible score is 42. Inpatient: RN or Physician to activate a stroke alert for onset of new stroke symptoms or with NIHSS increase >/= 3 points. Following change in neurological status, NIHSS will be performed per physician order or more frequently PRN. -1a. Level of Consciousness 0 - Alert; keenly responsive -1b. LOC Questions 0 - Answers BOTH questions correctly -1c. LOC Commands 0 - Performs BOTH tasks correctly -2. Best Gaze 0 - Normal -3. Visual 0 - No visual loss -4. Facial Palsy 0 - Normal symmetrical movements -5a. Left Arm 0 - No drift; arm holds 90 ( or 45) degrees for full 10 seconds -5b. Right Arm 0 - No drift; arm holds 90 ( or 45) degrees for full 10 seconds -6a. Left Leg 0 - No drift; leg holds 30- degree position for full 5 seconds -6b. Right Leg 0 - No drift; leg holds 30- degree position for full 5 seconds -7. Limb Ataxia 0 - Absent -8. Sensory 1 - Mild-to- moderate sensory loss; -9. Best Language 0 - No aphasia; normal -10. Dysarthria 0 - Normal -11. Extinction and Inattention 0 - No abnormality -Total 1 Query Text:A score of 0 is normal or asymptomatic. Total possible score is 42 . ED: Notify Physician for NIHSS increase by > / = 3 points. Inpatient: RN or Physician to activate a stroke alert for NIHSS increase of > / = 3 points. Coma Scale [Assess] -Eye Opening Spontaneous -Motor Obeys Commands -Verbal Oriented [Total] -Coma Scale Total 15
--- NOTE | 2025-05-02 12:57 | NEURO.CONS ---
Assessment and Plan: Neuro Assessment/Plan Telestroke Attending Consult Note - 05/02/2025 79 y/o woman with h/o CAD without stenting, chronic back pain with multiple prior back surgeries and GERD p/w right sided numbness/tingling. She reports of having a brain scan 2 days ago at [facility] and after having contrast for the scan, she developed right sided numbness/tingling. It appears MRI was ordered by her PCP Dr. Arana for decreased taste and smell. MRI brain - left LACE ROLLER stroke in the setting possible severe stenosis/focal occlusion of left LACE ROLLER. LDL-128. A1c-7.9. Today, she reports feeling better with numbness on right side. NIHSS-1. Diagnosis: Left LACE ROLLER stroke, cryptogenic Plan: ASA and statin. Follow up TTE and MRA head and neck. CTA deferred due to possible contrast allergy. 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 Control of vascular risk factors. I personally attended this patient and spent a total time of 71 minutes evaluating this patient including clinical assessment, review of chart, medical history imaging, and determining appropriate treatment and workup. HPI Consult Data Date of Consult: 05/03/25 HPI Narrative HPI Narrative: 79 y/o woman with h/o CAD without stenting, chronic back pain with multiple prior back surgeries and GERD p/w right sided numbness/tingling. She reports of having a brain scan 2 days ago at [facility] and after having contrast for the scan, she developed right sided numbness/tingling. It appears MRI was ordered by her PCP Dr. Arana for decreased taste and smell. MRI brain - left LACE ROLLER stroke in the setting possible severe stenosis/focal occlusion of left LACE ROLLER. LDL-128. A1c-7.9. Today, she reports feeling better with numbness on right side. NIHSS-1. [facility] Medical History COPD (chronic obstructive pulmonary disease) Irregular heart beat Hypertension Bladder mass Loss of hearing Wears contact lenses History of steroid therapy Bladder disease Fatty liver Back pain Migraine headache History of hiatal hernia History of diverticulitis Pneumonia Gastric reflux Former smoker Atelectasis of both lungs Shortness of breath on exertion Leg cramps History of edema History of echocardiogram History of stress test Pain Left foot pain Left ankle pain Hay fever Arthritis Home Medications ?Medication ?Instructions ?Recorded ?Last Taken ?Type omeprazole 20 mg capsule,delayed 40 mg PO DAILY acid reflux 11/08/13 09/24/18 History release Clamara Estrogen Patch 0.05 mg TRANSDERM. QWEEK 11/15/14 06/24/24 History menopausal symptoms cholecalciferol (vitamin D3) 250 1,250 unit PO QWEEK 11/15/14 06/24/24 History mcg (10,000 unit) tablet hydrocodone-acetaminophen 5-325mg 1 - 2 tab PO Q4H PRN PRN Pain #20 11/22/14 09/24/18 Rx 5mg-325mg TABLETS albuterol (refill) 90 90 mcg inhalation PRN PRN SOB 11/30/21 Unknown History mcg/actuation aerosol inhaler aspirin 81 mg tablet,delayed 81 mg PO BREAKFAST 90 days #90 tabs 07/26/24 Unknown Rx release Held on 05/01/25. Instructions: had eye surgery needs to starting it again when eye gets bet atorvastatin 40 mg tablet 40 mg PO QHS #90 tabs 09/03/24 Unknown Rx metoclopramide HCl 10 mg tablet 10 mg PO 4X/DAY PRN Headache #20 02/01/25 Unknown Rx tabs Allergy/AdvReac Type Severity Reaction Status Date / Time Iodinated Contrast Media Allergy Severe Anaphylaxis Verified 05/02/25 13:29 (Iodinated Contrast Media - IV Dye) codeine Allergy Intermediate Nausea/Vom/ Verified 05/01/25 14:16 Diarrhea gabapentin Allergy Rash Verified 05/01/25 14:16 tetracycline (Tetracycline) Allergy Hives Verified 05/01/25 14:16 Family History Mother Hypertension Mitral valve prolapse Surgical History Hx of nasal septoplasty Hx of bladder repair surgery Hx of arthroplasty Hx of laparoscopy Hx of cholecystectomy H/O: hysterectomy Social History (Updated 02/01/25 @ 01:[address] Renato Tijerina MD) household members: spouse Smoking Status: Former smoker alcohol intake: never substance use type: does not use caffeine: No Vital Signs Vital Signs Vital Signs: 05/01/25 14:17 05/01/25 15:12 05/01/25 15:16 Temperature 98.1 F Temperature Source Oral Pulse Rate 83 88 Respiratory Rate 14 Respiratory Effort Respiratory Depth Respiratory Pattern Blood Pressure 156/80 H 153/76 H Blood Pressure Mean 105 101 Blood Pressure Source Blood Pressure Position Blood Pressure Location Pulse Ox 96 95 Oxygen Delivery Method Room Air Room Air 05/01/25 16:00 05/01/25 16:46 05/01/25 17:43 Temperature 97.5 F L Temperature Source Pulse Rate 82 88 83 Respiratory Rate 16 18 Respiratory Effort Respiratory Depth Respiratory Pattern Blood Pressure 147/84 H 147/72 H 170/76 H Blood Pressure Mean 105 97 107 Blood Pressure Source Blood Pressure Position Blood Pressure Location Pulse Ox 93 95 Oxygen Delivery Method Room Air 05/01/25 18:00 05/01/25 19:27 05/01/25 20:45 Temperature 98.1 F Temperature Source Oral Pulse Rate 75 74 Respiratory Rate 16 18 Respiratory Effort Respiratory Depth Respiratory Pattern Blood Pressure 163/80 H 168/74 H Blood Pressure Mean 107 105 Blood Pressure Source Monitor Blood Pressure Position Semi-Fowlers Blood Pressure Location Left Arm Pulse Ox 94 98 97 Oxygen Delivery Method Room Air Room Air Room Air 05/01/25 21:54 05/01/25 22:00 05/01/25 22:30 Temperature 98.4 F 97.9 F Temperature Source Oral Temporal Pulse Rate 96 97 Respiratory Rate 16 18 Respiratory Effort Normal Respiratory Depth Normal Respiratory Pattern Normal Blood Pressure 142/67 H 155/75 H Blood Pressure Mean 92 101 Blood Pressure Source Monitor Monitor Blood Pressure Position Sitting Semi-Fowlers Blood Pressure Location Right Arm Pulse Ox 96 98 Oxygen Delivery Method Room Air Room Air Room Air 05/02/25 02:00 05/02/25 02:15 05/02/25 05:51 Temperature 98.2 F 98 F Temperature Source Oral Oral Pulse Rate 63 58 L Respiratory Rate 16 16 Respiratory Effort Normal Respiratory Depth Normal Respiratory Pattern Normal Blood Pressure 119/67 117/55 L Blood Pressure Mean 84 75 Blood Pressure Source Monitor Monitor Blood Pressure Position Semi-Fowlers Semi-Fowlers Blood Pressure Location Left Arm Left Arm Pulse Ox 98 98 Oxygen Delivery Method Room Air Room Air Room Air 05/02/25 07:32 05/02/25 10:00 05/02/25 10:00 Temperature 97.4 F L Temperature Source Temporal Pulse Rate 78 Respiratory Rate 14 Respiratory Effort Respiratory Depth Respiratory Pattern Blood Pressure 145/63 H Blood Pressure Mean 90 Blood Pressure Source Monitor Blood Pressure Position Sitting Blood Pressure Location Left Arm Pulse Ox 96 98 Oxygen Delivery Method Room Air Room Air Room Air Weight Weight: 64.2 kg Body Mass Index (BMI) 26.7 EEG Results Procedure Details EEG Procedure Details: DINAH COOL is a 79 year old F with a past medical history of , who presents for evaluation of Electroencephalogram on DATE at TIME Physical Exam Narrative General: The patient appears nutritionally appropriate, well-groomed, and appears comfortable in no acute distress. Mental Status:? The patient?s mental status was normal including orientation.? Language was intact.? Cranial nerves:? Visual blackman full, and extra-ocular motion was intact. Symmetric face. Motor: Normal strength in all extremities. Sensation: Decrease sensation on right face/UE and LE? Coordination:? Bilateral finger to nose was normal.? There was no dysmetria. Gait:? deferred. Lab / Micro Data 05/02/25 06:03 05/03/25 05:42 Labs: Laboratory Results - last 24 hr 05/01/25 14:30: POC Glucose 123 H 05/01/25 14:34: WBC 11.1 H, RBC 4.68, Hgb 13.6, Hct 40.7, MCV 87.0, MCH 29.1, MCHC 33.4, RDW Std Deviation 41.4, RDW Coeff of Jennifer 13.4, Plt Count 236, MPV 11.6, Immature Gran % (Auto) 0.500, Neut % (Auto) 64.6, Lymph % (Auto) 27.0, Borden % (Auto) 6.8, Eos % (Auto) 0.6, Baso % (Auto) 0.5, Absolute Neuts (auto) 7.2, Absolute Lymphs (auto) 3.00, Nucleated RBC % 0, PT 13.4, INR 1.0, APTT 31.6, Sodium 139, Potassium 3.8, Chloride 104, Carbon Dioxide 19.7 L, Anion Gap 15, BUN 16, Creatinine 0.60 L, Estim Creat Clear Calc 50.45, Est GFR (MDRD) Non-Af 91, BUN/Creatinine Ratio 26.3 H, Glucose 126 H, Hemoglobin A1c 7.9 H, Calcium 9.1, Troponin T High Sens 8 05/01/25 17:10: Troponin T Hi Sens 2 Hr 9 05/01/25 19:16: Troponin T Hi Sens 4Hr 7 05/02/25 06:03: WBC 10.0, RBC 4.49, Hgb 13.1, Hct 39.3, MCV 87.5, MCH 29.2, MCHC 33.3, RDW Std Deviation 41.7, RDW Coeff of Jennifer 13.2, Plt Count 215, MPV 10.8, Sodium 139, Potassium 3.9, Chloride 104, Carbon Dioxide 22.1, Anion Gap 12, BUN 16, Creatinine 0.66 L, Estim Creat Clear Calc 48.13 L, Est GFR (MDRD) Non-Af 89, BUN/Creatinine Ratio 23.6 H, Glucose 140 H, Calcium 9.0, Triglycerides 203 H, Cholesterol 209 H, LDL Cholesterol, Calc 128, VLDL Cholesterol 41 H, HDL Cholesterol 41, Cholesterol/HDL Ratio 5.11 Rhythm Strip Rhythm Strip: Sinus Rhythm Rate: 70 Ectopy: None Imaging Radiology Impression Brain CT 05/01/25 15:13 IMPRESSION: No acute, large territorial infarction. Dr. Mesa was notified by Kentrell Luna at 4:20 pm EST on 05/01/2025. Reading Location: [facility] Brain MRI 05/02/25 09:20 IMPRESSION: 1. Acute ischemia in a patchy distribution involving the left LACE ROLLER distribution to include the left occipital lobe and left thalamus. This may be thromboembolic in nature. 2. Chronic microvascular ischemic changes, volume loss. Stroke Alert: Acute ischemia The critical findings in the findings and impression above were relayed directly by me by telephone to Angel Guaman on 05/02/2025 at 10:17 am with readback verification. Reading Location: [facility] Active Medications Active Medications Active Medications: Current Medications Generic Name Dose Route Start Last Admin Trade Name Freq PRN Reason Stop Dose Admin Acetaminophen 650 mg 05/01/25 19:12 05/02/25 06:34 Acetaminophen 325 Mg Tablet PO 650 mg Q6H PRN PRN Administration Pain 1-10 Or Fever>100.7 Hydrocodone Bitart/Acetaminophen 1 tablet 05/01/25 19:12 05/02/25 08:04 Hydrocodone Bitartrate/Apap 5/325 Tablet PO 1 tablet Q4H PRN PRN Administration Pain Score 4-10 Aspirin 81 mg 05/02/25 08:00 05/02/25 08:04 Aspirin E.C. 81 Mg Tablet PO 81 mg BREAKFAST SHANNON Administration Atorvastatin Calcium 40 mg 05/01/25 22:00 05/01/25 20:54 Atorvastatin Calcium 40 Mg Tablet PO 40 mg QHS SHANNON Administration Hydralazine HCl 5 mg 05/01/25 19:12 Hydralazine 20 Mg/Ml Vial IV 05/02/25 19:12 Q30M PRN maintain BP parameters with HR <60 Labetalol HCl 10 - 20 mg 05/01/25 19:12 Labetalol 20 Mg/4 Ml Vial IV 05/02/25 19:12 Q10M PRN PRN maintain BP parameters with HR >/=60 Lorazepam 0.5 mg 05/01/25 21:00 05/02/25 08:38 Lorazepam 0.5 Mg Tablet PO 0.5 mg X1 PRN Administration ANXIETY Melatonin 3 mg 05/01/25 19:12 Melatonin 3 Mg Tablet PO QHS PRN PRN INSOMNIA Ondansetron HCl 4 mg 05/01/25 19:12 Ondansetron 4 Mg/2 Ml Vial IV Q8H PRN PRN NAUSEA/VOMITING Pantoprazole Sodium 40 mg 05/02/25 10:00 05/02/25 08:04 Pantoprazole Sodium 40 Mg Tablet PO 40 mg DAILY SHANNON Administration Sodium Chloride 10 - 40 ml 05/01/25 19:53 05/01/25 20:54 0.9% Saline Lock 10 Ml Syringe IV 10 ml UD PRN Administration SALINE FLUSH NIHSS NIHSS Nursing Documentation NIHSS Nursing Documentation: NIHSS: Ischemic Stroke/TIA Start: 05/01/25 19:12 Text: For ICU Patients: NIH sroke scale at Status: Complete presentation and every 2 hours or with change in RN caregiver Freq: Q4H Protocol: Activity Type Activity Date Activity User E-sign Co-sign Detail Recorded Client Recorded Date Recorded By Document 05/01/25 19:39 RPS desktop 05/01/25 19:48 RPS 05/01/25 19:39 NIH Stroke Scale [NIHSS] A score of 0 is normal or asymptomatic . Total possible score is 42. Inpatient: RN or Physician to activate a stroke alert for onset of new stroke symptoms or with NIHSS increase >/= 3 points. Following change in neurological status, NIHSS will be performed per physician order or more frequently PRN. -1a. Level of Consciousness 0 - Alert; keenly responsive -1b. LOC Questions 0 - Answers BOTH questions correctly -1c. LOC Commands 0 - Performs BOTH tasks correctly -2. Best Gaze 0 - Normal -3. Visual 0 - No visual loss -4. Facial Palsy 0 - Normal symmetrical movements -5a. Left Arm 0 - No drift; arm holds 90 ( or 45) degrees for full 10 seconds -5b. Right Arm 0 - No drift; arm holds 90 ( or 45) degrees for full 10 seconds -6a. Left Leg 0 - No drift; leg holds 30- degree position for full 5 seconds -6b. Right Leg 0 - No drift; leg holds 30- degree position for full 5 seconds -7. Limb Ataxia 0 - Absent -8. Sensory 1 - Mild-to- moderate sensory loss; -9. Best Language 0 - No aphasia; normal -10. Dysarthria 0 - Normal -11. Extinction and Inattention 0 - No abnormality -Total 1 Query Text:A score of 0 is normal or asymptomatic. Total possible score is 42 . ED: Notify Physician for NIHSS increase by > / = 3 points. Inpatient: RN or Physician to activate a stroke alert for NIHSS increase of > / = 3 points. Coma Scale [Assess] -Eye Opening Spontaneous -Motor Obeys Commands -Verbal Oriented [Total] -Coma Scale Total 15 NIHSS: Ischemic Stroke/TIA Start: 05/01/25 19:12 Text: For PCU Patients: NIH and Neuro Check every 4 Status: Active hours, PRN and with change in RN caregiver. Freq: [id number] Protocol: Activity Type Activity Date Activity User E-sign Co-sign Detail Recorded Client Recorded Date Recorded By Document 05/02/25 10:00 [id number] 05/02/25 10:32 NB 05/02/25 10:00 NIH Stroke Scale [NIHSS] A score of 0 is normal or asymptomatic . Total possible score is 42. Inpatient: RN or Physician to activate a stroke alert for onset of new stroke symptoms or with NIHSS increase >/= 3 points. Following change in neurological status, NIHSS will be performed per physician order or more frequently PRN. -1a. Level of Consciousness 0 - Alert; keenly responsive -1b. LOC Questions 0 - Answers BOTH questions correctly -1c. LOC Commands 0 - Performs BOTH tasks correctly -2. Best Gaze 0 - Normal -3. Visual 1 - Partial hemianopia -4. Facial Palsy 0 - Normal symmetrical movements -5a. Left Arm 0 - No drift; arm holds 90 ( or 45) degrees for full 10 seconds -5b. Right Arm 0 - No drift; arm holds 90 ( or 45) degrees for full 10 seconds -6a. Left Leg 0 - No drift; leg holds 30- degree position for full 5 seconds -6b. Right Leg 0 - No drift; leg holds 30- degree position for full 5 seconds -7. Limb Ataxia 0 - Absent -8. Sensory 1 - Mild-to- moderate sensory loss; -9. Best Language 0 - No aphasia; normal -10. Dysarthria 0 - Normal -11. Extinction and Inattention 0 - No abnormality -Total 2 Query Text:A score of 0 is normal or asymptomatic. Total possible score is 42 . ED: Notify Physician for NIHSS increase by > / = 3 points. Inpatient: RN or Physician to activate a stroke alert for NIHSS increase of > / = 3 points. Coma Scale [Assess] -Eye Opening Spontaneous -Motor Obeys Commands -Verbal Oriented [Total] -Coma Scale Total 15 NIHSS 1a. Level of Consciousness: 0 - Alert; keenly responsive 1b. LOC Questions: 0 - Answers BOTH questions correctly 1c. LOC Commands: 0 - Performs BOTH tasks correctly 2. Best Gaze: 0 - Normal 3. Visual: 0 - No visual loss 4. Facial Palsy: 0 - Normal symmetrical movements 5a. Left Arm: 0 - No drift; arm holds 90 (or 45) degrees for full 10 seconds 5b. Right Arm: 0 - No drift; arm holds 90 (or 45) degrees for full 10 seconds 6a. Left Le - No drift; leg holds 30-degree position for full 5 seconds 6b. Right Le - No drift; leg holds 30-degree position for full 5 seconds 7. Limb Ataxia: 0 - Absent 8. Sensory: 1 - [id number] sensory loss; 9. Best Language: 0 - No aphasia; normal 10. Dysarthria: 0 - Normal 11. Extinction and Inattention: 0 - No abnormality Total: 1
--- NOTE | 2025-05-02 13:27 | MRI_ITS ---
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 Carotids: No evidence of significant stenosis on time of flight imaging. Limited noncontrast exam. Vertebrals: Codominant without evidence of high grade stenosis. Arch: Unremarkable as visualized. No subclavian stenosis. MRI/MRA Neck without Contrast IMPRESSION: No hemodynamically significant stenosis. Reading Location: [id number]
--- NOTE | 2025-05-02 14:19 | CASEMGMT ---
Social Work SW completed a PHQ9 with the patient. Patient scored a 0. L. EMMETT Byers
--- NOTE | 2025-05-02 14:25 | CASEMGMT ---
Social Work SW provided the patient an AD information booklet, a blank POA and LW paperwork and a rack card. EMMETT Zavala
--- NOTE | 2025-05-02 15:57 | CASEMGMT ---
Addendum entered by Sosa Bunch 05/02/25 19:45: provided w/[facility] visiting hours. Original Note: FARZAD KAMARA NOTE: MRI + for stroke. PT/OT & ST evals reviewed & additional therapy recommended by all therapyies. Per PT, RU recommended. RN CM to room. Pt resting in bed, @ bedside. Introduced self and role. Discussed + MRI and therapies recommendations. Questions answered. Pt and agreeable to pt going to RU. A list of RU providers including quality and resource use data and consistent with the patient?s preferred geographic region, medical needs, and insurance network were provided from the [employer]. Their 1st choice is [facility]. Message sent to Ana, admissions dean, for [facility] and referral made. Per Dr Dominguez, pt may be medically ready to discharge tomorrow. Ana made aware of same. Gunner LINDAN FARZAD CM
--- NOTE | 2025-05-02 16:22 | ECHOD_ITS ---
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 Exam performed portable in patient room. Left Ventricle Normal LV size. Concentric left ventricular hypertrophy. The estimated ejection fraction is 65 %. Unable to assess diastolic dysfunction. No regional wall motion abnormalities noted. Right Ventricle Normal RV size. Normal systolic function. Atria The left atrium is mildly enlarged. Normal right atrium. No doppler evidence for ASD. Mitral Valve There is moderate mitral annular calcification. There is no mitral valve stenosis. Trivial mitral valve insufficiency. Tricuspid Valve There is no tricuspid stenosis. Trivial tricuspid valve insufficiency. Aortic Valve Trisinus/trileaflet aortic valve. Mild aortic stenosis. Trivial aortic valve insufficiency. Pulmonic Valve There is no pulmonic valvular stenosis. Trivial pulmonic valve insufficiency. Great Vessels Normal sized aortic root. Pericardium/Pleural No pericardial effusion. MMode/2D Measurements & Calculations LVIDd: 3.3 cm IVSd: 1.2 cm LVOT diam: 1.9 cm LVIDs: 2.1 cm LVPWd: 0.79 cm LVOT area: 2.9 cm2 RVDd: 2.6 cm FS: 36.9 % Ao root diam: 2.9 cm asc Aorta Diam: 2.8 cm LAV(MOD- bp): 51.4 ml LAV(MOD- bp) Indexed: 31.5 ml/m2 LAV(MOD- sp2): 51.9 ml LAV(MOD- sp4): 51.9 ml SV(MOD-sp4): 36.9 ml SV(sp4- el): 38.9 ml LVAd ap4: 19.8 cm2 LVLd ap4: 6.6 cm SI(MOD-sp4): 22.7 ml/m2 EDV(MOD-sp4): 49.4 ml EDV(sp4-el): 50.6 ml LVAs ap4: 8.6 cm2 LVLs ap4: 5.3 cm ESV(MOD-sp4): 12.4 ml ESV(sp4-el): 11.8 ml EF(MOD-sp4): 74.8 % EF(sp4-el): 76.8 % LA A4 area: 19.6 cm2 LA dimension(2D): 3.5 cm RA A4 area: 10.6 cm2 TAPSE: 2.6 cm Time Measurements MV dec time: 0.34 sec Doppler Measurements & Calculations MV E max kurtis: 89.1 cm/sec Lat Peak E' Kurtis: 7.0 cm/sec Med Peak E' Kurtis: 4.5 cm/sec MV A max kurtis: 133.6 cm/sec E/E' lat: 12.8 E/E' med: 19.7 MV E/A: 0.67 MV V2 max: 170.8 cm/sec MV P1/2t max kurtis: 106.1 cm/sec Ao V2 max: 210.4 cm/sec MV max P.7 mmHg MV P1/2t: 106.6 msec Ao max P.7 mmHg MV V2 mean: 83.1 cm/sec Ao V2 mean: 148.6 cm/sec MV mean P.2 mmHg MV dec slope: 291.6 cm/sec2 Ao mean P.9 mmHg MV V2 VTI: 42.3 cm MVA(P1/2t): 2.1 cm2 Ao V2 VTI: 46.7 cm AV (velocity ratio): 0.82 MVA(VTI): 2.7 cm2 NABILA(I,D): 2.4 cm2 NABILA(V,D): 2.2 cm2 AI max kurtis: 310.6 cm/sec LV V1 max: 158.9 cm/sec SV(LVOT): 112.7 ml AI max P.6 mmHg LV V1 max P.1 mmHg AI dec slope: 214.0 cm/sec2 LV V1 mean P.6 mmHg AI P1/2t: 425.1 msec LV V1 mean: 122.6 cm/sec LV V1 VTI: 38.4 cm PA V2 max: 141.8 cm/sec TR max kurtis: 286.1 cm/sec TR max P.8 mmHg ECHO/Echo Complete Interpretation Summary The estimated ejection fraction is 65 %. The left atrium is mildly enlarged. Trivial mitral valve insufficiency. Trivial aortic valve insufficiency. Mild aortic stenosis. Ordering Physician: Anand Dominguez Referring Physician: Lorena Arana Performed By: Sheri Hayes, VITALIY, RVT
--- NOTE | 2025-05-02 16:50 | MRI_ITS ---
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 FINDINGS: Anatomy: [place] anatomy is within normal limits. Anterior Circulation: Distal internal carotid anterior and middle cerebral arteries appear patent without high grade stenosis. No large aneurysms are identified. Posterior Circulation: Distal vertebral arteries the basilar artery and the posterior cerebral arteries appear patent without high grade stenosis. No large aneurysms are identified. MRI/MRA Head ONLY without Contrast IMPRESSION: No hemodynamically significant stenosis. No aneurysm. Reading Location: [id number]
[2025-05-03 00:30] VITALS: BP 134/55; PULSE 72; RESP 16; TEMP 36.2; O2SAT 96
[2025-05-03] MEDS: HYDROcodone Bitartrate/Apap 5/325 Tablet PO ×2 (03:55→08:34)
[2025-05-03 04:10] VITALS: BP 168/84; PULSE 87; RESP 18; TEMP 35.9; O2SAT 98
[2025-05-03 06:31] LABS: Anion Gap 12 (5-15); BUN 14 mg/dL (4-19); BUN/Creat Ratio 24.7 RATIO (10-20); Calcium,Total 9.5 mg/dL (7.6-11.0); Carbon Dioxide 22.5 mmol/L (21.0-32.0); Chloride 105 mmol/L (98-108); Estimated Creatinine Clearance 48.13 ml/min (50-250); Glucose 163 mg/dL (70-99); Potassium 3.9 mmol/L (3.3-5.1)
[2025-05-03] MEDS: Aspirin E.C. 81 MG Tablet PO (08:22)
[2025-05-03 08:23] VITALS: BP 157/88; PULSE 75; RESP 14; TEMP 36.6; O2SAT 98
--- NOTE | 2025-05-03 08:58 | CASEMGMT ---
Addendum entered by Sosa Bunch 05/03/25 14:28: Discharge order is in. RNJohana, made aware to call report to now. Ana @ [facility] made aware. Discharge instructions faxed to Addendum entered by Sosa Bunch 05/03/25 12:23: Pt made aware [facility] has accepted her & plan is for her to discharge there today. She voices appreciation. Call placed to pt's and he was made aware as well. Original Note: FARZAD KAMARA NOTE: Message received from Ana @ [facility]. Pt has been accepted. Gunner MENDEZ RN CM
--- NOTE | 2025-05-03 09:11 | DCINST_ITS ---
Discharge Instructions DC O2, CPAP, BIPAP needs Home O2 Discharge instructions: No Dressing / Incision Discharge Activity: Return to Normal Activity Weight Bearing Status: Weight bearing as tolerated Dressing / Incision Call your doctor if you observe: Fever of 101 or Higher, Coldness, Increased Pain, Numbness or Tingling, Change in Color, Inability to urinate, Inability to have a bowel movement, Shortness of breath, Dizziness, Fainting spells, Swelling in the ankles, Chest pain, Prolonged hiccupping, Increased palpitations (irregular heartbeat) and Calf discomfort Follow Up Care When: IN 2 WEEKS Test Results: Test results from this visit will be discussed in further detail at your follow- up appointment, if applicable. 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 Attending Provider: Anand Dominguez Primary Care Provider: Lorena Arana Consulting Providers: Marty Cole; Laura Mcdonnell; Jessica Hogan; Raine Singleton; Luz Maria Banks; Carlos Hernandez; Lori Garza; Librado Jones; Stuart Fonseca; Nixon Betancourt; Bisi Rivas; Neeru Russell; Pedro Travis; Danielle Power; Mee Lamb; Long Sampson; Will Bernal; Manish Diaz; Garth Meléndez; Sherly Nino; Real Cleaning; Angel Guaman Discharge Orders/Prescriptions Prescriptions: New meclizine 12.5 mg Tablet 12.5 mg PO 4X/DAY PRN PRN (Reason: Dizziness) Qty: 0 0RF lisinopril 10 mg Tablet 10 mg PO DAILY Qty: 0 0RF Continued omeprazole 20 MG capsule 40 mg PO DAILY cholecalciferol (vitamin D3) 10,000 UNIT tablet 1,250 unit PO QWEEK Patient Comments: takes it on mondays Rx Instructions: 1250 units Clamara Estrogen Patch 0.05 mg TRANSDERM. QWEEK Patient Comments: changes it on Sundays hydrocodone-acetaminophen 1 TABLET tablet 1 - 2 tab PO Q4H PRN PRN (Reason: Pain) Qty: 20 0RF albuterol (refill) 90 mcg/actuation Aerosol 90 mcg INHALATION PRN PRN (Reason: SOB) metoclopramide HCl 10 mg tablet 10 mg PO 4X/DAY PRN (Reason: Headache) Qty: 20 0RF aspirin 81 mg tablet,delayed release (DR/EC) 81 mg PO BREAKFAST 90 Days Qty: 90 3RF atorvastatin 40 mg tablet 40 mg PO QHS Qty: 90 3RF Other Ambulatory Orders: 30 Day Event Recorder Preventi (Urgent) Timeframe: 1 Day Facility: [facility] - Location: Cardiovascular Services Ordered By: Dr. Anand Dominguez Referrals / Follow Up: Lorena Arana DO [Primary Care Provider, Internal Medicine] Guido Simpson MD [Non-Staff -Ordering Privileges, Neurology] - Within 1 Month Disposition Disposition (needs filled in before D/C Order can be placed): Inpatient Rehab Unit/Facility
[2025-05-03 11:25] VITALS: BP 152/74; PULSE 70; RESP 15; TEMP 36.6; O2SAT 100
[2025-05-03 13:12] VITALS: BP 154/74; PULSE 70; RESP 16; TEMP 36.7; O2SAT 98
--- NOTE | 2025-05-03 13:12 | NEURO.PNOTE ---
Assessment and Plan: Neuro Assessment/Plan Telestroke Attending Progress Note - 05/03/2025 79 y/o woman with h/o CAD without stenting, chronic back pain with multiple prior back surgeries and GERD p/w right sided numbness/tingling. She reports of having a brain scan 2 days ago at [facility] and after having contrast for the scan, she developed right sided numbness/tingling. It appears MRI was ordered by her PCP Dr. Arana for decreased taste and smell. 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 LDL-128. A1c-7.9. MRA head and neck - no LVO or significant stenosis. Today, she reports feeling better with numbness on right side and blurry vision on right side. NIHSS-1. 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 Follow up TTE. CTA deferred due to possible contrast allergy. 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 Event monitor on discharge Control of vascular risk factors. Discussed with hospitalist at bedside. Sign off for now and please call us back for any questions I personally attended this patient and spent a total time of 31 minutes evaluating this patient including clinical assessment, review of chart, medical history imaging, and determining appropriate treatment and workup. Subject: Neurology Subjective Today, she reports feeling better with numbness on right side and blurry vision on right side. NIHSS-1. EEG Results Procedure Details EEG Procedure Details: DINAH COOL is a 79 year old F with a past medical history of , who presents for evaluation of Electroencephalogram on DATE at TIME Objective Data Objective Data Vital Signs: Vital Signs Temp Pulse Resp BP Pulse Ox O2 Del Method 97.8 F 70 15 152/74 H 100 Room Air 05/03/25 11:25 05/03/25 11:25 05/03/25 11:25 05/03/25 11:25 05/03/25 11:25 05/03/25 11:25 Oxygen Delivery Method Room Air Weight: 64.2 kg Body Mass Index (BMI) 26.7 Intake & Output: Intake and Output for Last 24 Hours 05/01/25 05/02/25 05/03/25 23:59 23:59 23:59 Intake Total 1220 / 1320 600 / 600 Balance 1220 / 1320 600 / 600 Lab / Micro Data 05/02/25 06:03 05/03/25 05:42 Labs: Laboratory Results - last 24 hr 05/03/25 05:42: Sodium 139, Potassium 3.9, Chloride 105, Carbon Dioxide 22.5, Anion Gap 12, BUN 14, Creatinine 0.58 L, Estim Creat Clear Calc 48.13 L, Est GFR (MDRD) Non-Af 92, BUN/Creatinine Ratio 24.7 H, Glucose 163 H, Calcium 9.5, TSH 0.822, Free T4 1.40 Radiography Diagnostic Testing: Radiology Impression Neck MRA 05/02/25 13:27 IMPRESSION: No hemodynamically significant stenosis. Reading Location: [facility] MRA 05/02/25 16:50 IMPRESSION: No hemodynamically significant stenosis. No aneurysm. Reading Location: [id number] Rhythm Strip Rhythm Strip: Sinus Rhythm Rate: 70 Ectopy: None Physical Exam Narrative General: The patient appears nutritionally appropriate, well-groomed, and appears comfortable in no acute distress. Mental Status:? The patient?s mental status was normal including orientation.? Language was intact.? Cranial nerves:? Visual blackman full with blurring of vision in right side, and extra-ocular motion was intact. Symmetric face. Motor: Normal strength in all extremities. Sensation: Decrease sensation in right side.? Coordination:? Bilateral finger to nose was normal.? There was no dysmetria. Gait:? deferred. NIHSS NIHSS Nursing Documentation NIHSS Nursing Documentation: NIHSS: Ischemic Stroke/TIA Start: 05/01/25 19:12 Text: For ICU Patients: NIH sroke scale at Status: Complete presentation and every 2 hours or with change in RN caregiver Freq: Q4H Protocol: Activity Type Activity Date Activity User E-sign Co-sign Detail Recorded Client Recorded Date Recorded By Document 05/01/25 19:39 RPS desktop 05/01/25 19:48 RPS 05/01/25 19:39 NIH Stroke Scale [NIHSS] A score of 0 is normal or asymptomatic . Total possible score is 42. Inpatient: RN or Physician to activate a stroke alert for onset of new stroke symptoms or with NIHSS increase >/= 3 points. Following change in neurological status, NIHSS will be performed per physician order or more frequently PRN. -1a. Level of Consciousness 0 - Alert; keenly responsive -1b. LOC Questions 0 - Answers BOTH questions correctly -1c. LOC Commands 0 - Performs BOTH tasks correctly -2. Best Gaze 0 - Normal -3. Visual 0 - No visual loss -4. Facial Palsy 0 - Normal symmetrical movements -5a. Left Arm 0 - No drift; arm holds 90 ( or 45) degrees for full 10 seconds -5b. Right Arm 0 - No drift; arm holds 90 ( or 45) degrees for full 10 seconds -6a. Left Leg 0 - No drift; leg holds 30- degree position for full 5 seconds -6b. Right Leg 0 - No drift; leg holds 30- degree position for full 5 seconds -7. Limb Ataxia 0 - Absent -8. Sensory 1 - Mild-to- moderate sensory loss; -9. Best Language 0 - No aphasia; normal -10. Dysarthria 0 - Normal -11. Extinction and Inattention 0 - No abnormality -Total 1 Query Text:A score of 0 is normal or asymptomatic. Total possible score is 42 . ED: Notify Physician for NIHSS increase by > / = 3 points. Inpatient: RN or Physician to activate a stroke alert for NIHSS increase of > / = 3 points. Coma Scale [Assess] -Eye Opening Spontaneous -Motor Obeys Commands -Verbal Oriented [Total] -Coma Scale Total 15 NIHSS: Ischemic Stroke/TIA Start: 05/01/25 19:12 Text: For PCU Patients: NIH and Neuro Check every 4 Status: Active hours, PRN and with change in RN caregiver. Freq: [id number] Protocol: Activity Type Activity Date Activity User E-sign Co-sign Detail Recorded Client Recorded Date Recorded By Document 05/03/25 11:25 DS [id number] 05/03/25 11:50 DS 05/03/25 11:25 NIH Stroke Scale [NIHSS] A score of 0 is normal or asymptomatic . Total possible score is 42. Inpatient: RN or Physician to activate a stroke alert for onset of new stroke symptoms or with NIHSS increase >/= 3 points. Following change in neurological status, NIHSS will be performed per physician order or more frequently PRN. -1a. Level of Consciousness 0 - Alert; keenly responsive -1b. LOC Questions 0 - Answers BOTH questions correctly -1c. LOC Commands 0 - Performs BOTH tasks correctly -2. Best Gaze 0 - Normal -3. Visual 1 - Partial hemianopia -4. Facial Palsy 0 - Normal symmetrical movements -5a. Left Arm 0 - No drift; arm holds 90 ( or 45) degrees for full 10 seconds -5b. Right Arm 0 - No drift; arm holds 90 ( or 45) degrees for full 10 seconds -6a. Left Leg 0 - No drift; leg holds 30- degree position for full 5 seconds -6b. Right Leg 0 - No drift; leg holds 30- degree position for full 5 seconds -7. Limb Ataxia 0 - Absent -8. Sensory 1 - Mild-to- moderate sensory loss; -9. Best Language 0 - No aphasia; normal -10. Dysarthria 0 - Normal -11. Extinction and Inattention 0 - No abnormality -Total 2 Query Text:A score of 0 is normal or asymptomatic. Total possible score is 42 . ED: Notify Physician for NIHSS increase by > / = 3 points. Inpatient: RN or Physician to activate a stroke alert for NIHSS increase of > / = 3 points. NIHSS 1a. Level of Consciousness: 0 - Alert; keenly responsive 1b. LOC Questions: 0 - Answers BOTH questions correctly 1c. LOC Commands: 0 - Performs BOTH tasks correctly 2. Best Gaze: 0 - Normal 3. Visual: 0 - No visual loss 4. Facial Palsy: 0 - Normal symmetrical movements 5a. Left Arm: 0 - No drift; arm holds 90 (or 45) degrees for full 10 seconds 5b. Right Arm: 0 - No drift; arm holds 90 (or 45) degrees for full 10 seconds 6a. Left Le - No drift; leg holds 30-degree position for full 5 seconds 6b. Right Le - No drift; leg holds 30-degree position for full 5 seconds 7. Limb Ataxia: 0 - Absent 8. Sensory: 1 - Bigy-qi-[id number] sensory loss; 9. Best Language: 0 - No aphasia; normal 10. Dysarthria: 0 - Normal 11. Extinction and Inattention: 0 - No abnormality Total: 1
--- NOTE | 2025-05-03 14:12 | PCM.DC.SUM ---
Providers Date of Admission: 05/02/25 Date of Discharge: 05/03/25 Primary Care Physician: Dr. Lorena Arana, DO Consultations 05/01/25 19:12 Consult: Tele-Neurology Routine Consulting Provider: [facility] Reason for Consult: Acute Ischemic Stroke/TIA EMERGENT Consult: No MD Notified: Yes Date Notified: 05/02/25 Time Notified: 01:21 Method of Notification: Answering Service Nursing Unit Staff Notify [facility] of Tele-Neurology Consult: Yes Reason For Visit: STROKELIKE SYMPTOMS Diagnosis Discharge Diagnosis (1) Right sided numbness: Status: Acute Code(s): R20.0 - Anesthesia of skin Plan Patient is an 79-year-old female who presented to [facility] ED on 05/01/2025 with right sided numbness/tingling from head to toe positive bleeding scan investigation 2 days ago. Described numbness as partial with difficulty moving right arm and leg. Currently unable to walk or straighten due to right leg weakness. No dizziness balance issue. Reports difficulty thinking understanding.. 1. Acute ischemic stroke in left KOSHER BUTCHER distribution involving left occipital lobe and left thalamus ? Admit under observation status to PCU. Neurology consulted. 05/02: On exam, the patient has diminished vision on the right visual field though she had history of right eye cataract and left eye macular degeneration. Hard of hearing. NIH scale of 2. MRA head and neck ordered. Patient also said she has allergy with iodine contrast many years ago and she felt like her airway was closing/could not breathe but was not admitted unclear. She does not remember well. Discussed with the neurologist Dr. Hernandez and MRA head and neck ordered. Patient had MRI head with and without contrast done at [facility] on 04/29 ordered by her PCP for reported decreased sense of taste and smell. It was reported subacute infarct involving concurrent suspected severe stenosis/focal occlusion of left KOSHER BUTCHER. On postcontrast imaging it showed severe restenosis/focal occlusion of left KOSHER BUTCHER in P2 segment and more distally with segmental reconstitution. PT, OT, speech therapy/swallow evaluation and management, nursing NIH stroke scale, BP and glucose monitoring and control as per stroke protocol. TSH, A1c fasting lipid profile tomorrow AM. MRI brain and 2D echo with bubble contrast study ordered MRI brain shows acute ischemia and patchy distal involving left KOSHER BUTCHER distribution to include left occipital lobe and left thalamus may be thromboembolic in nature. Chronic microvascular ischemic changes with volume loss. Last echo in June 2024 shows mild MR mild TR PASP 45, EF 65 to 70% with moderate asymmetric septal hypertrophy. Stage II diastolic dysfunction. No RWMA Lipid profile shows elevated TC 209, TG 203, LDL 128 therefore dyslipidemia. A1c 7.9%. 05/03: Discussed with the neurologist. Patient feeling little dizzy/drowsy and blurry vision on the right side at about 1 PM. In the morning also she was not feeling good. Seen by [facility] neurologist, Dr. Hernandez. She might have some waxing and waning symptom for next 2 to 3 days. SBP about 154 therefore decided to start lisinopril 10 mg daily. Patient is more than 48 hours. 30-day event monitor ordered. She might have some fluctuating symptoms due to left KOSHER BUTCHER TSH and free T4 are normal. 2D echo still pending. 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 Patient is discharged on baby aspirin and high intensity statin. MRA head and neck does not show hemodynamically significant stenosis or aneurysm. 2. Recent right cataract surgery ? Patient had right eye cataract surgery done in early March and baby aspirin was apparently held for a short time perioperatively. Okay to continue as above. 3. History of nonobstructive CAD, hyperlipidemia ? Continue home aspirin and statin as above. 4. Chronic back pain with history of prior back surgeries ? OARRS reviewed. Continue home hydrocodone?acetaminophen every 4 hours as needed. 5. GERD ? Continue home PPI. 6. Hearing loss ? Patient with bilateral hearing loss and is hard of hearing. Complicates hospital course and care. DVT prophylaxis: SCDs CODE STATUS: Full code, verified Discharge medication reconciliation done. Discharge follow-up instructions completed. Discharge process discussed with the patient and all questions were answered to patient's satisfaction. Follow with PCP in 1 to 2 weeks. Total time spent, exact 35 minutes on discharge meds reconciliation, examination, coordination of care with nurses and ancillary staff, review of imaging and blood test and discussion with the patient on follow-up instructions. Laboratory Results 05/01/25 14:34: Sodium 139, Potassium 3.8, Chloride 104, Carbon Dioxide 19.7 L, Anion Gap 15, BUN 16, Creatinine 0.60 L, Estim Creat Clear Calc 50.45, Est GFR (MDRD) Non-Af 91, BUN/Creatinine Ratio 26.3 H, Glucose 126 H, Hemoglobin A1c 7.9 H, Calcium 9.1, Troponin T High Sens 8 05/01/25 17:10: Troponin T Hi Sens 2 Hr 9 05/01/25 19:16: Troponin T Hi Sens 4Hr 7 05/02/25 06:03: WBC 10.0, RBC 4.49, Hgb 13.1, Hct 39.3, MCV 87.5, MCH 29.2, MCHC 33.3, RDW Std Deviation 41.7, RDW Coeff of Jennifer 13.2, Plt Count 215, MPV 10.8, Sodium 139, Potassium 3.9, Chloride 104, Carbon Dioxide 22.1, Anion Gap 12, BUN 16, Creatinine 0.66 L, Estim Creat Clear Calc 48.13 L, Est GFR (MDRD) Non-Af 89, BUN/Creatinine Ratio 23.6 H, Glucose 140 H, Calcium 9.0, Triglycerides 203 H, Cholesterol 209 H, LDL Cholesterol, Calc 128, VLDL Cholesterol 41 H, HDL Cholesterol 41, Cholesterol/HDL Ratio 5.[address] 05/01/25 15:13 IMPRESSION: No acute, large territorial infarction. Brain MRI 05/02/25 09:20 IMPRESSION: 1. Acute ischemia in a patchy distribution involving the left KOSHER BUTCHER distribution to include the left occipital lobe and left thalamus. This may be thromboembolic in nature. 2. Chronic microvascular ischemic changes, volume loss. Medications at Discharge Home Medications omeprazole 20 mg capsule,delayed release 40 mg PO DAILY acid reflux 11/08/13 Clamara Estrogen Patch 0.05 mg TRANSDERM. QWEEK menopausal symptoms 11/15/14 cholecalciferol (vitamin D3) 250 mcg (10,000 unit) tablet 1,250 unit PO QWEEK 11/15/14 hydrocodone-acetaminophen 5-325mg 5mg-325mg 1 - 2 tab PO Q4H PRN PRN Pain #20 TABLETS 11/22/14 albuterol (refill) 90 mcg/actuation aerosol inhaler 90 mcg inhalation PRN PRN SOB 11/30/21 aspirin 81 mg tablet,delayed release 81 mg PO BREAKFAST 90 days #90 tabs 07/26/24 atorvastatin 40 mg tablet 40 mg PO QHS #90 tabs 09/03/24 metoclopramide HCl 10 mg tablet 10 mg PO 4X/DAY PRN Headache #20 tabs 02/01/25 lisinopril 10 mg tablet 10 mg PO DAILY #0 tabs 05/03/25 meclizine 12.5 mg tablet 12.5 mg PO 4X/DAY PRN PRN Dizziness #0 tabs 05/03/25 Hospital Course Summary of Care Provided Hospital Course: Clinical Impression(s) from Imaging Studies Brain CT 05/01/25 15:13 IMPRESSION: No acute, large territorial infarction. Dr. Mesa was notified by Kentrell Luna at 4:20 pm EST on 05/01/2025. Reading Location: [facility] Brain MRI 05/02/25 09:20 IMPRESSION: 1. Acute ischemia in a patchy distribution involving the left KOSHER BUTCHER distribution to include the left occipital lobe and left thalamus. This may be thromboembolic in nature. 2. Chronic microvascular ischemic changes, volume loss. Stroke Alert: Acute ischemia The critical findings in the findings and impression above were relayed directly by me by telephone to Angel Guaman on 05/02/2025 at 10:17 am with readback verification. Reading Location: [id number] Neck MRA 05/02/25 13:27 IMPRESSION: No hemodynamically significant stenosis. Reading Location: [facility] Head MRA 05/02/25 16:50 IMPRESSION: No hemodynamically significant stenosis. No aneurysm. Reading Location: [facility] Physical Exam Narrative Seen and examined. In the morning she felt little drowsy and lethargic. Sometimes she is not clear about her symptoms and says she is dizzy and and shortly after that she says she is not. She stated she is does not speak clearly about the right visual field but this is similar to yesterday. Patient is stated that she has a right-sided numbness. On right eye she had recent cataract surgery. Left eye probably she has macular degeneration Physical exam General: Alert, Oriented x3, Cooperative HEENT: Hard of hearing atraumatic, PERRLA, EOMI, Normocephalic. Right peripheral visual field is diminished, partially hemianopia. Oral: No Gingival or Mucosal Lesions/ Ulcerations Neck: Supple, No JVD, Negative Carotid Bruits Chest wall/Lungs: Air entry diminished in bilateral lung bases. No crepitation/rhonchi Cardiovascular: Regular rate and rhythm, Normal S1,S2, No M/G/R Abdomen: Bowel Sounds Present, Soft, Non Tender, Non-Distended : No dysuria. No renal angle tenderness. No suprapubic tenderness. Extremities: No edema, Capillary Refill Less than 3 Seconds Skin: No rashes, No breakdown Musculoskeletal: No Tenderness to Palpation of Joints or Extremities Neurological: Cranial nerves II-XII grossly intact, DTR 2+/4. NIHSS 2, 1 for vision and second decreased sensation over right UE, RLE and face Psych/Mental Status: Normal Affect, Appropriate. Weight / BMI Weight Weight: 141 lb 8.588 oz Body Mass Index (BMI) 26.7 ABG / Lab / Microbiology Data 05/02/25 06:03 05/03/25 05:42 Laboratory: Laboratory Results - last 24 hr 05/03/25 05:42: Sodium 139, Potassium 3.9, Chloride 105, Carbon Dioxide 22.5, Anion Gap 12, BUN 14, Creatinine 0.58 L, Estim Creat Clear Calc 48.13 L, Est GFR (MDRD) Non-Af 92, BUN/Creatinine Ratio 24.7 H, Glucose 163 H, Calcium 9.5, TSH 0.822, Free T4 1.40 05/03/25 12:57: POC Glucose 161 H Radiography Diagnostic Testing: Radiology Impression Neck MRA 05/02/25 13:27 IMPRESSION: No hemodynamically significant stenosis. Reading Location: [facility] Head MRA 05/02/25 16:50 IMPRESSION: No hemodynamically significant stenosis. No aneurysm. Reading Location: [facility] D/C Instructions Weight Bearing Status: Weight bearing as tolerated Call your doctor if you observe: Fever of 101 or Higher, Coldness, Increased Pain, Numbness or Tingling, Change in Color, Inability to urinate, Inability to have a bowel movement, Shortness of breath, Dizziness, Fainting spells, Swelling in the ankles, Chest pain, Prolonged hiccupping, Increased palpitations (irregular heartbeat) and Calf discomfort DC O2, CPAP, BIPAP Needs Home O2 Discharge instructions: No When: IN 2 WEEKS Meaningful Use Info Meaningful Use Meaningful Use Diagnoses (Choose all that apply): Ischemic CVA CVA Therapy Assessed for PT,OT and/or ST?: Yes Ischemic Stroke Antithrombotic order at d/c?: Yes Dx of Atrial fib/flutter?: No Statins at discharge?: Yes Primary Dx Acute Ischemic CVA?: Yes Discharge Plan Admission Admit Date/Time: 05/02/25 16:26 Primary Reason for Your Visit: Left KOSHER BUTCHER ischemic stroke Attending Provider: Anand Dominguez Primary Care Provider: Lorena Arana Consulting Providers: Marty Cole; Laura Mcdonnell; Jessica Hogan; Raine Singleton; Luz Maria Banks; Carlos Hernandez; Lori Garza; Librado Jones; Stuart Fonseca; Nixon Betancourt; Bisi Rivas; Neeru Russell; Pedro Travis; Danielle Power; Mee Lamb; Long Sampson; Will Bernal; Manish Diaz; Garth Meléndez; Sherly Nino; Real Cleaning; Angel Guaman Discharge Orders/Prescriptions Prescriptions: New meclizine 12.5 mg Tablet 12.5 mg PO 4X/DAY PRN PRN (Reason: Dizziness) Qty: 0 0RF lisinopril 10 mg Tablet 10 mg PO DAILY Qty: 0 0RF Continued omeprazole 20 MG capsule 40 mg PO DAILY cholecalciferol (vitamin D3) 10,000 UNIT tablet 1,250 unit PO QWEEK Patient Comments: takes it on mondays Rx Instructions: 1250 units Clamara Estrogen Patch 0.05 mg TRANSDERM. QWEEK Patient Comments: changes it on Sundays hydrocodone-acetaminophen 1 TABLET tablet 1 - 2 tab PO Q4H PRN PRN (Reason: Pain) Qty: 20 0RF albuterol (refill) 90 mcg/actuation Aerosol 90 mcg INHALATION PRN PRN (Reason: SOB) metoclopramide HCl 10 mg tablet 10 mg PO 4X/DAY PRN (Reason: Headache) Qty: 20 0RF aspirin 81 mg tablet,delayed release (DR/EC) 81 mg PO BREAKFAST 90 Days Qty: 90 3RF atorvastatin 40 mg tablet 40 mg PO QHS Qty: 90 3RF Other Ambulatory Orders: 30 Day Event Recorder Preventi (Urgent) Timeframe: 1 Day Facility: [facility] - Location: Cardiovascular Services Ordered By: Dr. Anand Dominguez Referrals / Follow Up: Lorena Arana DO [Primary Care Provider, Internal Medicine] Guido Simpson MD [Non-Staff -Ordering Privileges, Neurology] - Within 1 Month Disposition Disposition (needs filled in before D/C Order can be placed): Inpatient Rehab Unit/Facility Charges/Coding Visit Charges Inpatient E&M: 74635 Disch Hosp >30min
[2025-05-03 14:18] VITALS: BMI 26.7
--- NOTE | 2025-05-03 14:53 | PHA.DC.MR.R ---
Pharmacy [place] Med Reconciliation Pharmacy Service has performed discharge medication reconciliation for this patient. The patient's discharge medication list was reviewed for discrepancies and discrepancies were resolved. Medications at Discharge Home Medications omeprazole 20 mg capsule,delayed release 40 mg PO DAILY acid reflux 11/08/13 [place] Estrogen Patch 0.05 mg TRANSDERM. QWEEK menopausal symptoms 11/15/14 cholecalciferol (vitamin D3) 250 mcg (10,000 unit) tablet 1,250 unit PO QWEEK 11/15/14 hydrocodone-acetaminophen 5-325mg 5mg-325mg 1 - 2 tab PO Q4H PRN PRN Pain #20 TABLETS 11/22/14 albuterol (refill) 90 mcg/actuation aerosol inhaler 90 mcg inhalation PRN PRN SOB 11/30/21 aspirin 81 mg tablet,delayed release 81 mg PO BREAKFAST 90 days #90 tabs 07/26/24 atorvastatin 40 mg tablet 40 mg PO QHS #90 tabs 09/03/24 metoclopramide HCl 10 mg tablet 10 mg PO 4X/DAY PRN Headache #20 tabs 02/01/25 lisinopril 10 mg tablet 10 mg PO DAILY #0 tabs 05/03/25 meclizine 12.5 mg tablet 12.5 mg PO 4X/DAY PRN PRN Dizziness #0 tabs 05/03/25
== END 2025-05-03 14:50 | DRG 66 ==
LOC: ED 16:47 → PCU 18:29
PROVIDERS: Admitting Provider Hospitalist; Emergency Provider Emergency Medicine; PCP Internal Medicine; Visit Provider Internal Medicine
DX: I63.532 Cerebral infarction due to unspecified occlusion or stenosis of left posterior cerebral artery (principal); E78.5 Hyperlipidemia, unspecified; E86.9 Volume depletion, unspecified; J44.9 Chronic obstructive pulmonary disease, unspecified; I10 Essential (primary) hypertension; K21.9 Gastro-esophageal reflux disease without esophagitis; M54.9 Dorsalgia, unspecified; H53.8 Other visual disturbances; I25.10 Atherosclerotic heart disease of native coronary artery without angina pectoris; R47.9 Unspecified speech disturbances; Z87.891 Personal history of nicotine dependence; R29.702 NIHSS score 2; Z90.710 Acquired absence of both cervix and uterus; R29.898 Other symptoms and signs involving the musculoskeletal system; Z79.82 Long term (current) use of aspirin; R20.0 Anesthesia of skin; G89.29 Other chronic pain; Z90.49 Acquired absence of other specified parts of digestive tract; H91.93 Unspecified hearing loss, bilateral
CPT/HCPCS: 36415; 70450; 70544; 70547; 70551; 80048; 80061; 82962; 83036; 84439; 84443; 84484; 85025; 85027; 85610; 85730; 92507; 92522; 93005; 93306; 94762; 97162; 97166; 97802; 99285; A4216

== ENCOUNTER 2025-05-03 14:50 | Inpatient (IN) | payer MEDICARE, OTHER, SELFPAY ==
[2025-05-03 15:06] VITALS: BP 176/85; PULSE 76; RESP 16; TEMP 36.5; O2SAT 96; BMI 26.6
--- NOTE | 2025-05-03 16:00 | NURSING ---
Admit to Rehab, aware of call light use and aware of Rehab routine.
[2025-05-03] MEDS: HYDROcodone Bitartrate/Apap 5/325 Tablet PO ×2 (16:06→22:02)
--- NOTE | 2025-05-03 16:41 | EX.PCM.HP.RE ---
HPI - General General Date of Admission: 05/03/25 Date of Service: 05/03/25 Chief Complaint: POST STROKE DEBILITY HPI Narrative DINAH COOL, is a 79 yo F with a PMH of HTN, DM II, HLD (on atorvastatin 40 mg daily at admission), Chronic pain S. (sees pain management and she is chronically on [place]), presbycusis, left atrial enlargement, moderate obstructive sleep apnea (not being treated) mild aortic stenosis, stage II diastolic dysfunction on echocardiogram done in June 2024, moderate asymmetric septal hypertrophy in June 2024, pulmonary hypertension with a PA pressure estimated at 45 in June 2024, chronic estrogen use, remote history of a bladder mass that was resected by Dr. Laureen Henning in 2021 and was negative for malignancy, cerebral ischemic white matter disease and macular degeneration who presented to the emergency department at [facility] on 05/01/2025 complaining of right side numbness/tingling. She had an MRI of her brain done at [facility] in [place] on 04/29/2025 because she had been complaining of alteration in taste and smell. The interpretation of the MRI was diffusion and FLAIR abnormality involving the left hippocampus with minimal associated effacement. There were additional small curvilinear areas of subcortical enhancement in the left occipital lobe. These findings were thought to favor subacute infarcts given the concurrent suspected severe stenosis/focal occlusions in the left PHYSICAL THERAPY AIDE. Patient stated that she had had her right side ever since she had the MRI at [facility]. She attributed this to dye and said she had an allergic reaction in the past. Noncontrast CT brain was unremarkable. BMP and CBC were unremarkable. Hemoglobin A1c was elevated at 7.9 and she has not been on medications for diabetes mellitus. Triglycerides were elevated at 203, possibly secondary to uncontrolled diabetes. The LDL was 128 and the total cholesterol was 209. HDL was 41. She was admitted to the hospitalist service and MRI/MRA was ordered. MRI showed acute ischemia in a patchy distribution involving the left PHYSICAL THERAPY AIDE to include the left occipital lobe and left thalamus. This was thought to be possibly thromboembolic in nature. She had chronic microvascular changes and volume loss. MRA of the head and neck showed no hemodynamically significant stenosis. The MRI that was done at [facility] showed possible severe stenosis in the left PHYSICAL THERAPY AIDE. Teleneurology consult was obtained and they recommended aspirin and statin. She was on atorvastatin 40 mg daily at admission to the hospital and her LDL was 128. Transthoracic echocardiogram showed an estimated ejection fraction of 65%. The left atrium was mildly enlarged and there was only trivial mitral valve and aortic valve insufficiency. There was mild aortic stenosis. She had a 14-day event monitor in July 2024 that showed no atrial fibrillation. She had multiple symptoms reported but no significant abnormality and rhythm at the time of those symptoms. She had a stress test in June 2024 that showed no diagnostic EKG changes. There was a small reversible apical perfusion defect of mild intensity suggestive of mild ischemia. Overall low risk stress test with less than 5% of myocardium at risk. She followed up with [facility] and no intervention was recommended. she has been on an estrogen patch since her hysterectomy in 1996. she was transferred to the acute inpatient rehab unit at [facility] on 04/03/2025 for 3 hours of therapy daily to restore function/independence at or near her level prior to the recent stroke. She had a sleep study ordered by Dr. Carl in 2012 and it showed moderate obstructive sleep apnea syndrome. Respiratory events were associated with frequent arousals as well as oxygen desaturations. Positive pressure therapy was recommended but she could not tolerate. she is not on O2 at night. [facility] Medical History (Updated 05/04/25 @ 13:[address] Mirian Mesa DO) Mild aortic stenosis Diabetes mellitus type 2 in nonobese Hyperlipidemia Chronic narcotic use Nocturia Chronic insomnia Chronic pain syndrome Abnormal stress test Current use of estrogen therapy COPD (chronic obstructive pulmonary disease) Irregular heart beat Hypertension Bladder mass Loss of hearing Wears contact lenses History of steroid therapy Bladder disease Fatty liver Back pain Migraine headache History of hiatal hernia History of diverticulitis Pneumonia Gastric reflux Former smoker Atelectasis of both lungs Leg cramps History of edema History of echocardiogram History of stress test Pain Hay fever Arthritis Home Medications ?Medication ?Instructions ?Recorded ?Last Taken ?Type omeprazole 20 mg capsule,delayed 40 mg PO DAILY acid reflux 11/08/13 09/24/18 History release cholecalciferol (vitamin D3) 250 1,250 unit PO QWEEK vitamin 11/15/14 04/29/25 History mcg (10,000 unit) tablet hydrocodone-acetaminophen 5-325mg 1 - 2 tab PO Q4H PRN PRN Pain #20 11/22/14 09/24/18 Rx 5mg-325mg TABLETS albuterol (refill) 90 90 mcg inhalation PRN PRN SOB 11/30/21 Unknown History mcg/actuation aerosol inhaler aspirin 81 mg tablet,delayed 81 mg PO BREAKFAST heart 90 days 07/26/24 Unknown Rx release #90 tabs atorvastatin 40 mg tablet 80 mg PO QHS cholesterol 05/03/25 Unknown History lisinopril 10 mg tablet 10 mg PO DAILY bp #0 tabs 05/03/25 Unknown Rx meclizine 12.5 mg tablet 12.5 mg PO 4X/DAY PRN PRN 05/03/25 Unknown Rx Dizziness #0 tabs Allergy/AdvReac Type Severity Reaction Status Date / Time Iodinated Contrast Media Allergy Severe Anaphylaxis Verified 05/02/25 13:29 (Iodinated Contrast Media - IV Dye) codeine Allergy Intermediate Nausea/Vom/ Verified 05/01/25 14:16 Diarrhea gabapentin Allergy Rash Verified 05/01/25 14:16 tetracycline (Tetracycline) Allergy Hives Verified 05/01/25 14:16 Family History Mother Hypertension Mitral valve prolapse Surgical History Hx of nasal septoplasty Hx of bladder repair surgery Hx of arthroplasty Hx of laparoscopy Hx of cholecystectomy H/O: hysterectomy Social History (Updated 05/04/25 @ 13:[address] Mirian Mesa DO) household members: spouse Smoking Status: Light Smoker (<10/day) how long ago did patient quit smoking: SHE STARTED SMOKING AT AGE 17 AND QUIT AT AGE 56..OFF AN ON. alcohol intake: never substance use type: does not use caffeine: No ROS Review of Systems ROS Unobtainable: other Details: Poor historian. Tends to perseverate on hot flashes, allergies/nasal congestion and chronic pain. Having trouble staying on topic. When I ask a question she starts talking about something else. told me that she was 49 YOA and corrected her and said you are 79. ; Denies due to encephalopathy, due to endotracheal tube, due to mental condition or due to mental status Constitutional Constitutional: Reports other Details: She complains of hot flashes. ; Denies anorexia, change in weight, chills, fatigue, fever(s), night sweats or weakness Eyes Eyes: Denies blurry vision, change in vision, eye pain or loss of vision ENT HEENT: Reports abnormal hearing, hearing loss, nasal congestion, sinus pressure and other Details: not wearing hearing aids. ; Denies dysphagia, headache(s) or sore throat Cardiovascular Cardiovascular: Reports dyspnea on exertion; Denies chest pain, edema, lightheadedness, orthopnea, palpitations, paroxysmal nocturnal dyspnea or syncope Respiratory/Chest Respiratory/Chest: Denies cough, dyspnea, shortness of breath at rest, shortness of breath with exertion or wheezing Gastrointestinal Gastrointestinal: Reports heartburn; Denies abdominal pain, constipation, diarrhea, dyspepsia, dysphagia, hematemesis, hematochezia, nausea or vomiting Genitourinary Genitourinary: Reports urinary frequency; Denies dysuria, hematuria, nocturia, urinary hesitancy, urinary incontinence or urinary urgency Musculoskeletal Musculoskeletal: Reports back pain; Denies joint pain, joint swelling or neck pain Integumentary Integumentary: Denies jaundice Neurologic Neurologic: Reports focal weakness and paresthesias; Denies confusion, disequilibrium, dizziness, headache(s), seizures, tremor(s) or vertigo Psychiatric Psychiatric: Reports anxiety, cognitive impairment, confusion and difficulty concentrating; Denies depression, homicidal ideation or suicidal ideation Endocrine Endocrinology: Denies change in body appearance, polydipsia or polyuria Hematologic/Lymphatic Hematologic/Lymphatic: Denies easy bleeding, easy bruising or lymphadenopathy Allergic/Immunologic Allergic/Immunologic: Reports rhinitis; Denies eczemia or asthma Vital Signs Vital Signs Vital Signs: 05/03/25 15:06 05/03/25 15:37 Temperature 97.7 F L Temperature Source Temporal Pulse Rate 76 Respiratory Rate 16 Respiratory Effort Normal Non-Labored Respiratory Depth Normal Respiratory Pattern Normal Blood Pressure 176/85 H Blood Pressure Mean 115 Blood Pressure Source Monitor Blood Pressure Position Semi-Fowlers Blood Pressure Location Right Arm Pulse Ox 96 Oxygen Delivery Method Room Air Weight Weight: 141 lb Body Mass Index (BMI) 26.6 Indicators for Scoring Admitted with or Primary Diagnosis of CVA/Stroke: Yes Hx of CVA/Stroke: Yes (Demonstrated on an MRI she had at [facility] on 04/29/2025.) Modified Crenshaw Score MRS Score at time of Evaluation: 4-Moderate/severe disability NIHSS NIHSS 1a. Level of Consciousness: 0 - Alert; keenly responsive 1b. LOC Questions: 1 - Answers ONE question correctly 1c. LOC Commands: 0 - Performs BOTH tasks correctly 2. Best Gaze: 0 - Normal 3. Visual: 0 - No visual loss 4. Facial Palsy: 0 - Normal symmetrical movements 5a. Left Arm: 0 - No drift; arm holds 90 (or 45) degrees for full 10 seconds 5b. Right Arm: 0 - No drift; arm holds 90 (or 45) degrees for full 10 seconds (she can hold the R arm up without drift but, she has decreased coordination with the RUE and her movement is slower. she has mild ataxia with the RUE) 6a. Left Le - No drift; leg holds 30-degree position for full 5 seconds 6b. Right Le - No drift; leg holds 30-degree position for full 5 seconds 7. Limb Ataxia: 1 - Present in 1 limb (RUE with slower movements and decreased coordination when compared to the left and she is R hand dominant. ) 8. Sensory: 1 - [id number] sensory loss; (Right face, right upper extremity and right lower extremity) 9. Best Language: 0 - No aphasia; normal 10. Dysarthria: 1 = [id number] dysarthria; (Speech is not crisp at times and this may be related to her hearing deficit and not stroke.) 11. Extinction and Inattention: 0 - No abnormality Total: 4 Stroke Questions Stroke Team Activated: No Physical Exam Const alert, oriented x3 and no apparent distress Constitutional Narrative: Making good eye contact, appropriate. Very talkative and has trouble staying on topic and answering the questions that I ask her without diverging. Her hearing is poor and her short-term memory is impaired but this may be related to hearing deficit as well as the stroke. She is very pleasant. Repeats herself frequently. Asked me questions that she has already asked and they have been answered. General Appearance: cooperative and comfortable HEENT HEENT Narrative: Dry mucous membranes with no evidence of thrush Head and Scalp: normocephalic and atraumatic Eyes PERRL, EOMs intact bilaterally, conjunctivae normal and no scleral icterus Eyes Narrative: No discharge from the eyes. She has had cataract surgery recently and will need the other eye done. General Eye: normal appearance of both eyes Neck no lymphadenopathy, supple, no JVD, No nodes and no carotid bruits General: trachea midline Chest Chest Narrative: Mild increase in the AP diameter of the chest Chest: symmetrical chest wall rise Resp normal respiratory effort, no use of accessory muscles and clear to auscultation bilaterally Resp Narrative: Not tachypneic and no conversational dyspnea. Mild decrease in air entry. No crackles and no wheezes. No cough with deep breathing. Effort and Inspection: able to speak in complete sentences Cardio regular rate, regular rhythm, S1 normal heart sound, S2 normal heart sound, no rub and no gallops Cardio Narrative: She has a soft 1/6 to 2/6 systolic ejection murmur heard best at the second right intercostal space with no significant radiation. No ectopy. GI normal to inspection, nondistended, normoactive bowel sounds and non-tender GI Narrative: No guarding with palpation. Bladder / Kidney Exam: no CVA tenderness Back/Spine Back/Spine Narrative: Kyphosis Extremity no clubbing, cyanosis or edema Skin Skin Narrative: No rashes, no skin breakdown. Neuro Neuro Narrative: She is alert. Pupils are equal round reactive to light. Extraocular muscles are intact. No nystagmus. No visual field cuts. Tongue protrudes on the midline. Decreased sensation in the right face when compared to the left. Good shoulder shrug bilaterally. No drift with either upper extremity. She is right-hand dominant and coordination in the right upper extremity has been impaired. She was very slow to do the finger-nose test on the right and was mildly ataxic. No ataxia in the left upper extremity. Decreased sensation in the right upper extremity. No drift with either lower extremity. She has good plantarflexion and dorsiflexion bilaterally. No ataxia of the lower extremities. Mild dysarthria with speech being less crisp than it should be and this may have something to do with her presbycusis. No extinction. No tremors. Asks me the same questions repeated times and does not remember what I have told her. Sometimes answers a question I have not asked her. Initially told me she was 49 years old and then changed to 79. She was able to tell me the month and why she is here on rehab. No rigidity. Psych denies hallucinations and denies suicidal ideation Psych Narrative: She seems anxious. She has some flight of ideas and tends to ramble. She has chronic insomnia. She always has to be busy. Short-term memory is not the greatest. She made good eye contact with me and was engaged in the conversation. Appearance: grossly normal, appropriate and well kempt Activity / Motor Behavior: appropriate eye contact Results Lab / Micro Data 05/04/25 06:06 05/04/25 06:06 Assessment & Plan Assessment/Plan (1) Debility: (2) Ischemic cerebrovascular accident (CVA): (3) Paresthesias: (4) Acute right-sided weakness: (5) Cognitive dysfunction: PLAN: Not sure if this is due to the stroke or if she has chronic cognitive dysfunction.......she has significant microvascular disease in the white matter of the brain and volume loss. told me she was 49 YOA. Told me that she started smoking at 17YOA and quit in 2001 and she then said she smoked for 5-6 yrs? Can not stay on topic and has some flight of ideas. Perseverates on every somatic complaint she has had. Poor short term memory. Asks me the same question multiple times and can not remember the answer I have already told her more than once. She may have chronic underlying dementia. This may be exacerbated due to strokes........suspect these are embolic. (6) Cerebral microvascular disease: (7) Chronic pain syndrome: (8) Chronic narcotic use: (9) Current use of estrogen therapy: (10) Presbycusis: QUALIFIERS: Laterality: bilateral Qualified Code(s): H91.13 - Presbycusis, bilateral PLAN: Not wearing hearing aids. (11) Asymmetric septal hypertrophy: PLAN: Mild (12) Asthma: QUALIFIERS: Asthma severity: mild Asthma persistence: intermittent Asthma complication type: uncomplicated Qualified Code(s): J45.20 - Mild intermittent asthma, uncomplicated (13) Coronary artery disease: QUALIFIERS: Coronary Disease-Associated Artery/Lesion type: [place] artery [place] vs. transplanted heart: [place] heart Associated angina: unspecified whether angina present Qualified Code(s): I25.10 - Atherosclerotic heart disease of [place] coronary artery without angina pectoris PLAN: Minimal on pharmacologic stress test done in July 2024. She also had an unremarkable 14-day event monitor at that time. She complained of palpitations in her diary for that monitor but there was no atrial fibrillation and at the time of the complaints there was no significant rhythm disturbance. (14) Hyperlipidemia: QUALIFIERS: Hyperlipidemia type: mixed hyperlipidemia Qualified Code(s): E78.2 - Mixed hyperlipidemia (15) Diabetes mellitus type 2 in nonobese: PLAN: Not currently being treated. (16) Nocturia: (17) Chronic insomnia: (18) Anxiety: (19) Mild aortic stenosis: PLAN: Plan PLAN PT for gait stability OT for ADL's ST for evaluation Analgesics as needed Bowel protocol Fall precautions Assess for Anxiety/Depression GI prophylaxis -continue pantoprazole 40 mg daily DVT prophylaxis with Lovenox 40 mg subcu daily Follow up with PCP and neurology following DC from IP Rehab AM lab including CMP, CBC, Mag, vitamin D and Phos Suspect the strokes were thromboembolic. DC the estrogen patch. Hot flashes may be secondary to anxiety and not due to menopause. She has been taking estrogen since she had a hysterectomy in 1996. Will start BuSpar 5 mg twice daily and consider an SSRI. Overnight trending pulse ox Increase his atorvastatin to 80 mg nightly with a goal LDL of 70 or less Goal blood pressure is going to be less than 130/80 Will need a 30-day event monitor Hemoglobin A1c was recently 7.9. Will start Glucophage 500 mg twice daily and do AC and at bedtime blood sugars. Obtain records from Dr. Arana Multiple RF's for CVA including age, HTN, DM II, HLD, smoking hx - needs good risk factor control Add carb control to the cardiac diet. Charges/Coding Visit Charges Inpatient E&M: 02968 Init Hosp L3
[2025-05-03 17:00] VITALS: BP 150/78
[2025-05-03 17:57] VITALS: PULSE 77; RESP 16; TEMP 36.8; O2SAT 96
[2025-05-03] MEDS: Senna/Docusate Sodium 1 Tablet 2 TABLET PO (20:53)
[2025-05-03 21:38] VITALS: PULSE 74; O2SAT 97
[2025-05-04 01:50] VITALS: BP 152/65; PULSE 78; RESP 18; TEMP 36.5; O2SAT 97
--- NOTE | 2025-05-04 02:03 | CT_ITS ---
PROCEDURE: BRAIN/HEAD WITHOUT CONTRAST 05/04/2025 REASON FOR EXAM: RLE WEAKNESS TECHNIQUE: Procedure Code: CTBR Modality: CT Procedure: BRAIN/HEAD WITHOUT CONTRAST Coronal and Sagittal reconstruction series were provided. One or more dose reduction techniques were used (e.g., Automated exposure control, adjustment of the mA and/or kV according to patient size, use of iterative reconstruction technique. RADIATION DOSE SUMMARY: CTDI Vol 44.99 mGy DLP :846.73 mGycm COMPARISON: 02-May-2025 MRI FINDINGS: The previously detected left occipito-temporal and left thalamic acute infarcts currently appears faintly hypodense with no obvious related hemorrhagic transformation. Accentuated bilateral cerebral periventricular deep white matter hypodensities denoting hypoperfusion with bilateral cerebral periventricular and subcortical as well as basal ganglia and right side pontine hypodense foci and patches. Koenig-white matter differentiation is maintained. Normal CT appearance of the rest of the posterior fossa structures. No intracerebral or extra axial hemorrhage. Dilated ventricular system, cortical sulci and extra-axial CSF spaces. No definite calvarial fractures. No midline shifts or deformity. The osseous structures in the skull base are unremarkable. Paranasal sinuses are unremarkable. Vascular atheromatous calcifications. CT/Brain/Head without Contrast IMPRESSION: The previously detected left cerebral acute infarcts currently appears faintly hypodense with no obvious related hemorrhagic transformation. Bilateral cerebral and pontine microvascular ischemic changes with brain involu tional changes. Stable. Reading [facility]
--- NOTE | 2025-05-04 02:04 | PCM.HOSP.N ---
Hospitalist Note Patient awoke to use restroom and reported ongoing paresthesias to the R side but also felt like her RLE was weak. She was able to get up and ambulate to the restroom with assistance. Reviewed her recent work-up for acute CVA. she is on HTN regimen, statin and asa therapy per Neurology recommendations. To be cautious will obtain CT head to be cautious.
--- NOTE | 2025-05-04 02:07 | NURSING ---
0145; This nurse heard pt yell out. Went into pt room. She states her right leg is numb and she cant move it. Her right leg was through the side rail. Assisted pt with getting leg out. She asked to go to restroom and r leg was noted to be unsteady. 2 nurses assisted pt back to bed. 0150: Pt back to bed. States leg is still numb. States it is a different feeling than she has had. States r side of face is number than it had been. 0152; BS checked 126. VSS 152/65, hr 78 regular, rr 18, spo2 on ra 97%, temp 97.7 temporal. 0155; Pt states her face may be feeling less numb. R leg remains the same. Pt unable at this time to hold r leg up. 0158; Bed Manager Agata on floor. Reviewed with her pt symptoms. Pt has hx of stroke with r side numbness. Since pt is stating it is different and since having her leg out of side rail and feeling is not changing call placed to Dr. Beltran at 0200. Reviewed symptoms with Orders received for a CAT scan at this time. 0215: Pt taken down to CAT scan. Pt alert and orientated x3. Skin warm and dry. States face is feeling slightly better but still numb but no change in r leg.
[2025-05-04] MEDS: Sodium Chloride 0.65% 1 SPRAY SPRAY.BTL 2 SPRAY NASAL (03:10)
[2025-05-04] MEDS: HYDROcodone Bitartrate/Apap 5/325 Tablet PO ×3 (04:25→20:17)
[2025-05-04 06:00] VITALS: BP 155/82; PULSE 95; RESP 18; TEMP 36.3; O2SAT 94
[2025-05-04 07:09] LABS: Hematocrit 43.2 % (37-47); Hemoglobin 14.2 g/dL (12.0-15.0); Mean Corp Hgb Conc 32.9 g/dL (32-36); Mean Corpuscular Volume 88.0 fL (81-99); Mean Platelet Vol. 11.6 fl (6.2-12.0); Platelet Count 246 K/mm3 (150-450); RBC Distribution Width CV 13.2 % (11.6-14.6); RBC Distribution Width SD 42.2 fl (35.1-43.9); Red Blood Count 4.91 M/mm3 (4.2-5.4); White Blood Count 10.8 K/mm3 (4.4-11.0)
[2025-05-04 07:45] LABS: AST(SGOT) 37 U/L (<=31); Alanine Aminotransfer ALT/SGPT 43 U/L (<=34); Albumin, Serum 4.2 g/dL (3.4-4.8); Alkaline Phosphatase 116 U/L (35-104); Anion Gap 13 (5-15); BUN 15 mg/dL (4-19); BUN/Creat Ratio 21.8 RATIO (10-20); Calcium,Total 9.5 mg/dL (7.6-11.0); Carbon Dioxide 22.7 mmol/L (21.0-32.0); Chloride 104 mmol/L (98-108); Estimated Creatinine Clearance 48.05 ml/min (50-250); Globulin 3.4 g/dL (2.2-4.2); Glucose 149 mg/dL (70-99); Magnesium 2.1 mg/dL (1.5-2.2); Potassium 3.9 mmol/L (3.3-5.1)
[2025-05-04 08:04] LABS: Vitamin D,25 Hydroxy 40.3 ng/mL (30-100)
[2025-05-04] MEDS: Senna/Docusate Sodium 1 Tablet 2 TABLET PO (08:39)
[2025-05-04] MEDS: Aspirin E.C. 81 MG Tablet PO (08:40)
--- NOTE | 2025-05-04 13:32 | REHABEVAL_ITS ---
Admission Information Primary Diagnosis:: Ischemic CVA in the distribution of the L SR. 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 Status Changes from Prescreening?: No changes Identified Actual Problem List:: Pain, ALteration in Cmfrt, Cognitve Impr/Memory Loss, Alteration in Sleep, Mobility Impaired, Self Care Deficit, Know.Dfct/Disease Process, Know.Dfct of Medicaitons, Diabetes, Hyperglycemia, BP, Hypertension and Alteration-Leisure Activ. Potential Problem List:: DVT, Bleeding, Infection, UTI, Aspiration, Falls, Skin Integrity and Depression Risk of Complications DVT: LMWH (Lovenox 40 mg daily) and EDA Hose Bleeding: Monitor Lab Values, Nursing to Teach Precautions for anti-coagulation therapy., Wound, if applicable, to be assessed every shift. and Stroke patients assessed for lethargy or change in status. Infection: Clinical Staff to Monitor for S/S of infection: and S/S of infection include fever, redness, warmth, etc. Urinary Tract Infection: Monitor for frequency, burning, discomfort, or incontinence. and Nursing will obtain urine sample for urinalysis and C&S when ordered. Aspiration: Clinical staff will monitor for coughing, drooling, congestion., Speech will evaluate swallowing and dsyphasia. and Nursing will monitor patient swallowing during meals. Falls: Patient will be evaluated for Fall Precautions and Patient will be placed on Fall Precautions as indicated per protocol. Skin Breakdown: Nursing will assess skin daily using assessment tool. and Nursing will place on Skin Breakdown Precautions as indicated. Pain: Clinical staff will assess patient's pain level per protocol., Medications will be given, if needed, and the pain level reassessed. and Other methods: Massage, distraction, decrease stimulus, etc. used PRN. Plan of Care Patient requires physician specializing in physical medicine and rehab oversight to provide close medical supervision of rehab issues including: Pain Management, Sleep Problems, Bowel and Bladder, Medical and co-morbidity Management, DVT prophylaxis, Rehabilitation Leadership and Coordination of treatment team Patient needs Physical Therapy: For a minimum of 1 hour and At least 5 out of 7 days Patient needs Physical Therapy to improve:: Mobility, Strengthening, Transfers, Stretching, ROM, Endurance, Stairs, Gait and Balance Patient needs Occupational Therapy: For a minimum of 1 hour and At least 5 out of 7 days Patient needs Occupational Therapy to improve ADL's incl.: Eating, Grooming, Bathing, Dressing, Toileting, Toilet transfers, Community Reintegration, Higher functioning activities, Household tasks, Adaptive Equipment, Splinting and Other activities as determined Patient requires speech therapy: For a minimum of 1 hour and At least 5 out of 7 days Patient requires speech therapy for: Swallowing, Cognition, Language Skills and Compensatory Strategies Patient requires 24/ Rehabilitation Nursing for: Pain Issues, Identifying and preventing risk factors, Monitoring and reporting current medical conditions, Assisting with ambulation, transfer, and all ADL's, Teaching patients about disease process and medications, Family teaching, Providing safe environment, Bowel and Bladder Issues, Skin integrity and Medication Management Patient needs Home Health Care Social Worker/ Case Management for: Discharge Planning, Arranging Home Equipment or Services and Family Interventions Patient needs Dietary and Nutrition Services for: Adequate Nutrition, Nutritional Supplements and Nutritional Education Goals Goals Patient will remain: free from falls Patient will perform eating at: MOD I level of assist. Patient will perform bed mobility at: MOD I level of assist. Patient will complete transfers from bed to chair at: MOD I level of assist. Patient will ambulate: - (500 feet with least restrictive device) Patient will complete upper body dressing at: MOD I level of assist. Patient will complete lower body dressing at: MOD I level of assist. Patient will complete toilet transfer at: MOD I level of assist. Patient will complete toileting at: MOD I level of assist. Patient will perform bathing at: MOD I level of assist. Patient will perform Tub/Shower transfer at: Standby Assist. Patient will complete grooming at: MOD I level of assist. Patient will complete home management skills at: MOD I level of assist. Patient will achieve: - (One-step with no handrail for entry to her home.) Patient will have pain level of: of 3 or less (This may be unrealistic in this pt. she has chronic pain S. and has chronic narcotic use. She perseverates on pain and pain is out of proportion to physical findings.) Patient's skin will: remain intact Patient will receive: adequate nutrition. Discharge Planning Pt Prognosis for Sig. Practical Improv. w/in Reasonable Time: Good Estimated Length of stay (days): 14 Anticipated D/C Destination: Home with Outpt Therapy Was Preadmission Assessment Accurate?: Yes
[2025-05-04 18:00] VITALS: BP 151/93; PULSE 98; RESP 18; TEMP 36.8; O2SAT 97
[2025-05-05] MEDS: HYDROcodone Bitartrate/Apap 5/325 Tablet PO ×3 (03:46→17:07)
[2025-05-05] MEDS: Sodium Chloride 0.65% 1 SPRAY SPRAY.BTL 2 SPRAY NASAL ×2 (03:49→08:35)
[2025-05-05 06:00] VITALS: BP 146/73; PULSE 85; RESP 17; TEMP 36.6; O2SAT 98
[2025-05-05 08:34] VITALS: BP 157/79; PULSE 75
[2025-05-05] MEDS: Aspirin E.C. 81 MG Tablet PO (08:35)
[2025-05-05 17:17] VITALS: BP 133/67; PULSE 108; RESP 16; TEMP 37.2; O2SAT 96
[2025-05-05 20:33] VITALS: RESP 16
[2025-05-06] MEDS: HYDROcodone Bitartrate/Apap 5/325 Tablet PO ×4 (01:15→20:24)
[2025-05-06 04:35] VITALS: BP 176/82; PULSE 96; RESP 16; TEMP 36.7; O2SAT 97
[2025-05-06 06:10] VITALS: BP 143/74
[2025-05-06 07:48] VITALS: BP 164/76; PULSE 79
[2025-05-06] MEDS: Ergocalciferol 1.25 MG (50, 000 UNIT) Capsule PO (07:51)
[2025-05-06] MEDS: Aspirin E.C. 81 MG Tablet PO (07:51)
--- NOTE | 2025-05-06 09:38 | PCM.PROGNOTE ---
Subjective Subjective Afebrile VSS -blood pressures over the weekend have ranged from 133/67 to 176/82. The heart rate has ranged from 75-108. Maintaining appropriate oxygen saturation on RA Oral intake - FOOD has been refusing meals since Tuesday. FLUIDS good Discussed with nursing - Multiple somatic complaints at all times. Severe hearing loss. Difficult to communicate with her........even when we are nearly screaming at her. Reviewed the THERAPY notes Medication list reviewed. She took 3 Whitlash yesterday. She is c/o feeling terrible. She is c/o nausea, burping and diarrhea. Has had a cholecystectomy in the past. + hx of GERD (on omeprazole as an outpatient). Currently pantoprazole 40 mg daily. Multiple loose bowel movements yesterday. Complains of nausea but has had no emesis. She spits in the emesis bag. Denies recent antibiotic use. Stool lactoferrin is negative. Enteric pathogen panel is pending. No HAN, no vertigo, no CP and no SOB. Denies dysuria. doing well with therapy today despite all her complaints........does better when distracted. Was able to ambulate 270 feet with physical therapy today at a slow pace with scissoring of the right lower extremity and a ataxic like movement of the right lower extremity at times. Objective Data Objective Data Vital Signs: Vital Signs Temp Pulse Resp BP Pulse Ox O2 Del Method O2 Flow Rate 98.1 F 79 16 164/76 H 97 Room Air 0 05/06/25 04:35 05/06/25 07:48 05/06/25 04:35 05/06/25 07:48 05/06/25 04:35 05/06/25 04:35 05/03/25 21:38 FiO2 21 05/03/25 21:38 Oxygen Flow Rate (L/min) 0 Oxygen Delivery Method Room Air Weight: 141 lb 0.017 oz Body Mass Index (BMI) 26.6 Intake & Output: Intake and Output for Last 24 Hours 05/04/25 05/05/25 05/06/25 23:59 23:59 23:59 Intake Total 1715 / 1715 1780 / 1780 1050 / 1050 Output Total 1500 / 1500 1325 / 1325 300 / 300 Balance 215 / 215 455 / 455 750 / 750 Lab / Micro Data 05/04/25 06:06 05/04/25 06:06 Labs: Laboratory Results - last 24 hr 05/05/25 11:40: POC Glucose 125 H 05/05/25 16:42: POC Glucose 151 H 05/05/25 21:55: POC Glucose 131 H 05/06/25 05:49: POC Glucose 162 H Physical Exam Const Constitutional Narrative: Extremely hard of hearing and we are having to essentially scream at her to get her to understand this. With speech therapist brought up the external amplifier and she seems to do better when she has this on. She is cooperative. She attributes her diarrhea/N/belching to Metformin which was just started Tuesday. Eyes Eyes Narrative: No vertigo Resp normal respiratory effort and clear to auscultation bilaterally Resp Narrative: No conversational dyspnea Effort and Inspection: Negative for tachypneic or respiratory distress Auscultation: diminished lung sounds Cardio regular rate, regular rhythm and no gallops Cardio Narrative: No ectopy. Soft systolic murmur at the second right intercostal space. This is unchanged. GI normal to inspection, nondistended, normoactive bowel sounds and soft to palpation GI Narrative: No significant tympany. No guarding with palpation. Extremity General Extremity: Negative for edema Skin General Skin Exam: no breakdown Rashes: no rashes Neuro Neuro Narrative: No change in the neuroexam. I did not ambulate her when I did her initial NIHSS. She had some ataxia of the right upper extremity and I watched her ambulate with physical therapy today and she has some scissoring of the right lower extremity which is consistent with ataxia. She scored 38 out of a possible 50 on her BCAT which is consistent with mild cognitive impairment. I suspect that she had some cognitive impairment even prior to the recent stroke Psych Psych Narrative: poor memory. Activity / Motor Behavior: restless Mood & Affect: anxious Assessment & Plan Assessment/Plan (1) Debility: (2) Ischemic cerebrovascular accident (CVA): (3) Paresthesias: (4) Acute right-sided weakness: (5) Cognitive dysfunction: (6) Cerebral microvascular disease: (7) Chronic pain syndrome: (8) Chronic narcotic use: (9) Current use of estrogen therapy: (10) Presbycusis: QUALIFIERS: Laterality: bilateral Qualified Code(s): H91.13 - Presbycusis, bilateral (11) Asymmetric septal hypertrophy: (12) Asthma: QUALIFIERS: Asthma severity: mild Asthma persistence: intermittent Asthma complication type: uncomplicated Qualified Code(s): J45.20 - Mild intermittent asthma, uncomplicated (13) Coronary artery disease: QUALIFIERS: Coronary Disease-Associated Artery/Lesion type: [place] artery [place] vs. transplanted heart: [place] heart Associated angina: unspecified whether angina present Qualified Code(s): I25.10 - Atherosclerotic heart disease of [place] coronary artery without angina pectoris (14) Hyperlipidemia: QUALIFIERS: Hyperlipidemia type: mixed hyperlipidemia Qualified Code(s): E78.2 - Mixed hyperlipidemia (15) Diabetes mellitus type 2 in nonobese: (16) Nocturia: (17) Chronic insomnia: (18) Anxiety: (19) Mild aortic stenosis: (20) Diarrhea: (21) Nausea: PLAN: Plan 1. Continue therapy 2. Check an enteric pathogen panel and stool for lactoferrin. 3. KUB today 4. Discontinue metformin 5. SSI for now. 6. CBC with differential and BMP in the a.m. Over the years she has had multiple somatic complaints. Last Dec she had CP/palpitations.......14 day monitor with no AF. She documented multiple sx during this time but, review of rhythm strips showed no abnormality at the time of the sx. pharmacologic stress test showed no significant abnormality and no treatment was recommended by [facility].. She has chronic insomnia and she has to be busy all the time. Her sister told nursing that she has had chronic anxiety for a long period of time. She is not medicated for this. She has had an abnormal sleep study in the past but is not being treated. She has diabetes mellitus type 2 with a hemoglobin A1c of 7.9 and is on no treatment. Blood pressures are erratic and not well-controlled......I suspect this is due to anxiety with mild panic attacks. Has never had psychotherapy. Will have the give her a list of local therapists for counselling. Will continue the Buspar and the Sertraline. Emotional support given. If enteric pathogen panel is negative will consider more aggressive tx of anxiety. Would like to avoid Benzo's if at all possible since she chronically uses narcotics.......sometimes I think she is treating the anxiety with Whitlash and not acutal severe pain........when we distract her she is able to do therapy and she does not appear to be in any pain. Charges/Coding Visit Charges Inpatient E&M: 65384 Subs Hosp L2
[2025-05-06 10:55] VITALS: BMI 26.2
--- NOTE | 2025-05-06 13:04 | RAD_ITS ---
PROCEDURE: ABDOMEN SINGLE VIEW 05/06/2025 REASON FOR EXAM: NAUSEA/ABD PAIN TECHNIQUE: Procedure Code: RADABD Modality: DX Procedure: ABDOMEN SINGLE VIEW FINDINGS: No evidence of free air, obstruction, or ileus. Normal-appearing bowel pattern. No definite urinary tract calculus. No definite sacral fracture. Mild narrowing of the hip joint spaces bilaterally, suggesting mild arthrosis. No evidence of fracture. Hiatal hernia. Surgical changes in the right upper quadrant and lower lumbar spine. RAD/Abdomen Single View IMPRESSION: Abdominal contents appear unremarkable. Mild hip joint space narrowing bilaterally, suggesting mild arthrosis. Hiatal hernia. Surgical changes. Reading Location: [facility]
[2025-05-06 18:00] VITALS: BP 151/80; PULSE 85; RESP 17; TEMP 36.3; O2SAT 95
[2025-05-06 21:00] VITALS: PULSE 85; RESP 17; O2SAT 94
[2025-05-07] MEDS: HYDROcodone Bitartrate/Apap 5/325 Tablet PO ×4 (02:58→21:17)
[2025-05-07 03:00] VITALS: PULSE 76; RESP 15; O2SAT 97
[2025-05-07 07:26] VITALS: BP 153/74; PULSE 86; RESP 18; TEMP 36.4; O2SAT 95
[2025-05-07] MEDS: Aspirin E.C. 81 MG Tablet PO (07:51)
[2025-05-07 08:15] LABS: Hematocrit 40.7 % (37-47); Hemoglobin 14.3 g/dL (12.0-15.0); Immature Granulocytes Count 0.040 X10^3/uL (0.0-0.0); Mean Corp Hgb Conc 35.1 g/dL (32-36); Mean Corpuscular Volume 83.9 fL (81-99); Mean Platelet Vol. 10.8 fl (6.2-12.0); NRBC Flagged by Analyzer 0 % (0-5); Platelet Count 246 K/mm3 (150-450); RBC Distribution Width CV 13.2 % (11.6-14.6); RBC Distribution Width SD 40.5 fl (35.1-43.9); Red Blood Count 4.85 M/mm3 (4.2-5.4); White Blood Count 11.6 K/mm3 (4.4-11.0)
[2025-05-07 08:32] LABS: Anion Gap 13 (5-15); BUN 16 mg/dL (4-19); BUN/Creat Ratio 23.2 RATIO (10-20); Calcium,Total 9.0 mg/dL (7.6-11.0); Carbon Dioxide 22.8 mmol/L (21.0-32.0); Chloride 101 mmol/L (98-108); Estimated Creatinine Clearance 47.67 ml/min (50-250); Glucose 213 mg/dL (70-99); Potassium 3.6 mmol/L (3.3-5.1)
--- NOTE | 2025-05-07 09:09 | PCM.PROGNOTE ---
Subjective Subjective Afebrile VSS -blood pressure over the past 24 hours has ranged from 143/74 to 164/76. Heart rate is within normal limits. Maintaining appropriate oxygen saturation on RA Oral intake - FOOD ate poorly yesterday and refused meals on 05/05/2025. Ate 75 to 100% of her breakfast today. FLUIDS good Had 4 loose bowel movements yesterday but has not had a bowel movement now since last night at 8:30 PM. The blood sugar record was reviewed. All blood sugars are under 200 for the past 24 hours. She required no insulin coverage. Discussed with nursing - would not wear oxygen last night. Reviewed the THERAPY notes Medication list reviewed. Had 4 doses of [place] yesterday. All labs from this morning was personally reviewed. White blood cell count is mildly increased at 11.6 with an unremarkable differential.. She is afebrile. Hemoglobin is stable at 14.3 and platelets are within normal limits. Sodium is 137 and the potassium is 3.6. The BUN is 16 and the creatinine is 0.7 which is within her baseline. Calcium is normal. C/O a localized area of low back pain in the left paravertebral area. c/o feeling sick but, ate 75-100% of her breakfast today. No emesis. I observed her from the rueda when she was talking on the phone. She was sitting in the recliner and appeared in no acute distress. When I entered the room after she got off the phone she began hunching over holding her left lower back and whining/moaning. She complained to therapy about being nauseaous.......ate 75-100% of breakfast. He was able to ambulate 270 feet with therapy today. She completed functional mobility from the bathroom to the bed with no device at contact-guard assist. Objective Data Objective Data Vital Signs: Vital Signs Temp Pulse Resp BP Pulse Ox O2 Del Method O2 Flow Rate 97.6 F L 86 18 153/74 H 95 Room Air 2 05/07/25 07:26 05/07/25 07:26 05/07/25 07:26 05/07/25 07:26 05/07/25 07:26 05/07/25 08:07 05/07/25 03:00 FiO2 21 05/03/25 21:38 Oxygen Flow Rate (L/min) 2 Oxygen Delivery Method Room Air Weight: 138 lb 10.732 oz Body Mass Index (BMI) 26.2 Intake & Output: Intake and Output for Last 24 Hours 05/05/25 05/06/25 05/07/25 23:59 23:59 23:59 Intake Total 1780 / 1780 2330 / 2330 450 / 450 Output Total 1325 / 1325 1300 / 1300 150 / 150 Balance 455 / 455 1030 / 1030 300 / 300 Lab / Micro Data 05/07/25 08:04 05/07/25 07:58 Labs: Laboratory Results - last 24 hr 05/06/25 11:14: POC Glucose 106 05/06/25 16:39: POC Glucose 110 H 05/06/25 21:36: POC Glucose 116 H 05/07/25 07:22: POC Glucose 110 H 05/07/25 07:58: Sodium 137, Potassium 3.6, Chloride 101, Carbon Dioxide 22.8, Anion Gap 13, BUN 16, Creatinine 0.70, Estim Creat Clear Calc 47.67 L, Est GFR (MDRD) Non-Af 88, BUN/Creatinine Ratio 23.2 H, Glucose 213 H, Calcium 9.0 05/07/25 08:04: WBC 11.6 H, RBC 4.85, Hgb 14.3, Hct 40.7, MCV 83.9, MCH 29.5, MCHC 35.1 D, RDW Std Deviation 40.5, RDW Coeff of Jennifer 13.2, Plt Count 246, MPV 10.8, Immature Gran % (Auto) 0.300, Neut % (Auto) 65.9, Lymph % (Auto) 23.6, [place] % (Auto) 8.1, Eos % (Auto) 1.7, Baso % (Auto) 0.4, Absolute Neuts (auto) 7.7, Absolute Lymphs (auto) 2.74, Nucleated RBC % 0 Micro: Microbiology 05/06/25 12:00 Stool Stool Lactoferrin - Final 05/06/25 12:00 Stool Enteric Bacteriology - Final Radiography Diagnostic Testing: Radiology Impression KUB X-Ray 05/06/25 13:04 IMPRESSION: Abdominal contents appear unremarkable. Mild hip joint space narrowing bilaterally, suggesting mild arthrosis. Hiatal hernia. Surgical changes. Reading Location: [facility] Physical Exam Const Constitutional Narrative: Extremely hard of hearing and we are having to essentially scream at her to get her to understand this. With speech therapist brought up the external amplifier and she seems to do better when she has this on. She is cooperative. She attributes her diarrhea/N/belching to Metformin which was just started Tuesday. Resp normal respiratory effort and clear to auscultation bilaterally Resp Narrative: No conversational dyspnea Effort and Inspection: Negative for tachypneic or respiratory distress Auscultation: diminished lung sounds Cardio regular rate, regular rhythm and no gallops Cardio Narrative: No ectopy. Soft systolic murmur at the second right intercostal space. This is unchanged. GI normal to inspection, nondistended, normoactive bowel sounds and soft to palpation GI Narrative: No significant tympany. No guarding with palpation. Extremity General Extremity: Negative for edema Skin General Skin Exam: no breakdown Rashes: no rashes Psych Psych Narrative: Needs psychotherapy. She is manipulative with nursing, therapy and nursing. When in her room by herself she appears in no distress and when any staff enters she starts moaning and complaining of pain. Assessment & Plan Assessment/Plan (1) Debility: (2) Ischemic cerebrovascular accident (CVA): (3) Paresthesias: (4) Acute right-sided weakness: (5) Cognitive dysfunction: (6) Cerebral microvascular disease: (7) Chronic pain syndrome: (8) Chronic narcotic use: (9) Current use of estrogen therapy: (10) Presbycusis: QUALIFIERS: Laterality: bilateral Qualified Code(s): H91.13 - Presbycusis, bilateral (11) Asymmetric septal hypertrophy: (12) Asthma: QUALIFIERS: Asthma severity: mild Asthma persistence: intermittent Asthma complication type: uncomplicated Qualified Code(s): J45.20 - Mild intermittent asthma, uncomplicated (13) Coronary artery disease: QUALIFIERS: Coronary Disease-Associated Artery/Lesion type: [place] artery [place] vs. transplanted heart: [place] heart Associated angina: unspecified whether angina present Qualified Code(s): I25.10 - Atherosclerotic heart disease of [place] coronary artery without angina pectoris (14) Hyperlipidemia: QUALIFIERS: Hyperlipidemia type: mixed hyperlipidemia Qualified Code(s): E78.2 - Mixed hyperlipidemia (15) Diabetes mellitus type 2 in nonobese: (16) Nocturia: (17) Chronic insomnia: (18) Anxiety: (19) Mild aortic stenosis: (20) Diarrhea: PLAN: resolved. Stool lactoferrin was negative and the enteric pathogen panel was also negative. Glucophage was discontinued yesterday. The last bowel movement was last night at about 8 PM. (21) Nausea: PLAN: Plan 1. Continue therapy 2. Increase BuSpar to 5 mg 3 times daily 3. Continue [place] every 6 hours as needed pain. 4. Continue ACHS sugars with sliding scale insulin coverage. Hemoglobin A1c was elevated at 7.9 but she was on no treatment. She is currently on an 1800-calorie cardiac diet. Will add carb consistent. May be able to control her diabetes with diet alone. 5. Continue sertraline 50 mg daily. Needs referral to psychotherapy postdischarge. SW gave her a list of local providers. Suspect she has borderline personality disorder. I also suspect she has uncontrolled anxiety. 6. She will continue to follow-up with pain management at discharge and with Dr. Arana for primary care. 7. Goal blood pressure is less than 135/80. Goal LDL is 70 or less. Goal hemoglobin A1c is 7 or less given recent strokes. 8. She has been diagnosed with obstructive sleep apnea in the past and states she cannot tolerate PAP therapy. Refused to wear the oxygen last night. She will follow up [facility] Dr. Arana for this. 9. Increase lisinopril to 10 mg twice daily to get the blood pressure consistently less than 135/80. 10. Order lidocaine patch for the localized area of pain in her left lower back. Will not increase the [place] dose. She sees chronic pain management as an outpatient and gets 95 [place] a month. Charges/Coding Visit Charges Inpatient E&M: 08472 [facility] Hosp L1
[2025-05-07] MEDS: Lidocaine 5% Patch 1 PATCH TOPICAL (11:26)
[2025-05-07 17:41] VITALS: BP 119/52; PULSE 72; RESP 16; TEMP 36.6; O2SAT 97
[2025-05-07 19:52] VITALS: PULSE 72; O2SAT 97
[2025-05-08 03:14] VITALS: PULSE 78; RESP 16; O2SAT 96
[2025-05-08] MEDS: HYDROcodone Bitartrate/Apap 5/325 Tablet PO ×3 (03:21→17:24)
[2025-05-08 06:00] VITALS: BP 147/73; PULSE 79; RESP 16; TEMP 36.4; O2SAT 97; BMI 26.0
[2025-05-08] MEDS: Lidocaine 5% Patch 1 PATCH TOPICAL (08:15)
[2025-05-08] MEDS: Aspirin E.C. 81 MG Tablet PO (08:15)
--- NOTE | 2025-05-08 08:47 | PN.REHAB_ITS ---
Subjective Subjective Patient seen, examined. She is in bathroom walking with walker. She is c/o nausea, but per report, she has chronic nausea related to anxiety, and she already has zofran ordered. Objective Data Objective Data Vital Signs: Vital Signs Temp Pulse Resp BP Pulse Ox O2 Del Method O2 Flow Rate 97.6 F L 79 16 147/73 H 97 Room Air 2 05/08/25 06:00 05/08/25 06:00 05/08/25 06:00 05/08/25 06:00 05/08/25 06:00 05/08/25 07:29 05/08/25 03:14 FiO2 21 05/03/25 21:38 Oxygen Flow Rate (L/min) 2 Oxygen Delivery Method Room Air Weight: 62.5 kg Body Mass Index (BMI) 26.0 Intake & Output: Intake and Output for Last 24 Hours 05/06/25 05/07/25 05/08/25 23:59 23:59 23:59 Intake Total 2330 / 2330 1890 / 1890 350 / 350 Output Total 1300 / 1300 1600 / 1850 500 / 500 Balance 1030 / 1030 290 / 40 -150 / -150 Lab / Micro Data 05/07/25 08:04 05/07/25 07:58 Labs: Laboratory Results - last 24 hr 05/07/25 11:25: POC Glucose 100 05/07/25 16:23: POC Glucose 106 05/07/25 21:28: POC Glucose 105 05/08/25 06:39: POC Glucose 126 H Micro: Microbiology 05/06/25 12:00 Stool Stool Lactoferrin - Final 05/06/25 12:00 Stool Enteric Bacteriology - Final Indicators for Scoring Admitted with or Primary Diagnosis of CVA/Stroke: Yes Hx of CVA/Stroke: Yes (Demonstrated on an MRI she had at [facility] on 04/29/2025.) Modified Coco Score MRS Score at time of Evaluation: 4-Moderate/severe disability Physical Exam Const alert General Appearance: cooperative HEENT normocephalic Eyes PERRL and EOMs intact bilaterally Neck supple, no JVD and no carotid bruits Resp normal respiratory effort, normal air movement and clear to auscultation bilaterally Cardio regular rate and regular rhythm GI normal to inspection, nondistended, normoactive bowel sounds, non-tender and non-distended Extremity normal capillary refill General Extremity: Negative for edema Skin no rashes or lesions noted General Skin Exam: no breakdown Psych affect normal Appearance: appropriate Assessment & Plan Assessment/Plan (1) Debility: (2) Stroke: (3) Type 2 diabetes mellitus with hyperglycemia: (4) Essential (primary) hypertension: (5) Hyperlipidemia: QUALIFIERS: Hyperlipidemia type: mixed hyperlipidemia Qualified Code(s): E78.2 - Mixed hyperlipidemia (6) Chronic pain: (7) Chronic heart failure with preserved ejection fraction (HFpEF): PLAN: Plan 79 year old female with below past medical history hospitalized for stroke, admitted to for 3 hours daily rehabilitation, strengthening, prior to discharge home. * Debility - PT/OT/ST * Pain - Tylenol 500mg q6 prn, [place] 5/325mg bid prn, Lidoderm 1 patch td daily. * Bowel - senna/colace 2 tablets bid, Dulcolax 10mg pr x 1 prn, MOM 30mL po x 1 prn, Loperamide 2mg q4 prn. * DVT prophylaxis - Lovenox 40mg sc daily. * Shortness of breath - Albuterol 1 puff q6 prn. * Stroke - Aspirin 81mg daily. * Hyperlipidemia - Atorvastatin 80mg qhs. * Anxiety - Buspar 5mg tid. * Vitamin D deficiency D 1.25mg qweek. * Diabetes Mellitus II - Lispro SSI. * Allergic rhinitis - Atrovent 2 sprays nasal bid, [place] spray 2 sprays nasa bid prn. * HTN - Lisinopril 10mg daily. * Skin irritation - Calmoseptine topical bid. * Nausea - Zofran 4mg q8 prn. * GERD - Pantoprazole 40mg daily. * Depression - Zoloft 50mg daily.
[2025-05-08 11:17] LABS: Mucous, Urine 0 SEEN /hpf (<or=2+); Red Blood Cells-Urine 0 SEEN /hpf (0-5)
[2025-05-08 11:21] LABS: Color, Urine Yellow (Yellow); Glucose, Dipstick Normal (Normal); Ketone-Dipstick Negative (Negative); Leukocyte Esterase-Dipstick Negative /ul (Negative); Nitrite-Dipstick Negative (Negative); Occult Blood-Urine Negative /ul (Negative); Protein-Dipstick 15 mg/dl (Negative); Specific Gravity, Urine 1.010 (1.002-1.030); Urine Bilirubin Dipstick Negative (Negative)
[2025-05-08 11:31] LABS: Squamous Epithelial Cells - UA 0-5 SEEN /hpf (5-10)
[2025-05-08 17:40] VITALS: BP 122/83; PULSE 97; RESP 18; TEMP 36.8; O2SAT 96
[2025-05-08 20:06] VITALS: BP 154/75; PULSE 78; RESP 16; TEMP 36.6; O2SAT 97
[2025-05-08] MEDS: Senna/Docusate Sodium 1 Tablet 2 TABLET PO (20:14)
[2025-05-09] MEDS: HYDROcodone Bitartrate/Apap 5/325 Tablet PO ×4 (01:50→20:28)
[2025-05-09 06:00] VITALS: BP 155/81; PULSE 89; RESP 16; TEMP 36.3; O2SAT 99
[2025-05-09 07:17] VITALS: O2SAT 99
[2025-05-09] MEDS: Aspirin E.C. 81 MG Tablet PO (07:48)
[2025-05-09] MEDS: Lidocaine 5% Patch 1 PATCH TOPICAL (07:48)
--- NOTE | 2025-05-09 08:15 | CASEMGMT ---
Addendum entered by Alejandra Shelley 05/10/25 08:28: SW followed up with pt on HHC preferences. Pt selected [facility]. SW phoned referral for [facility] PT/OT Original Note: Social Work IDT met with patient, and sister for Team meeting. 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 Educated to Medicare approved 8 days with DC 05/11. SW offered coordinating HHC/OP and DME needs. Pt/ prefer HHC. SW provided list of skilled HHC agencies within geographical area, INN with insurance, that include quality and resource data via [employer] guide. Pt to review and notify this worker of preferences. Pt denied DME needs. to transport at 0900 at [place]. 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
--- NOTE | 2025-05-09 11:07 | EX.DISCHREH ---
Documented by User: ALEN Amos 05/09/25 12:40 Providers Date of Admission: 05/03/25 Date of Discharge: 05/11/25 Primary Care Physician: Dr. Lorena Arana, DO Dietitian Reason For Visit: CVA Diagnosis Discharge Diagnosis (1) Debility: Status: Acute Code(s): R53.81 - Other malaise Plan: *continue with outpatient therapies *pt is mostly home bound and will require C (2) Stroke: Status: Acute Code(s): I63.9 - Cerebral infarction, unspecified Plan: *Continue therapies at home. Will require home health care. (3) Type 2 diabetes mellitus with hyperglycemia: Status: Acute Code(s): E11.65 - Type 2 diabetes mellitus with hyperglycemia Plan: *1800-calorie cardiac diet, carb controlled. Follow-up with primary care provider as scheduled for continued maintenance at home. (4) Essential (primary) hypertension: Status: Acute Code(s): I10 - Essential (primary) hypertension Plan: *Continue home lisinopril 10 mg p.o. daily. (5) Hyperlipidemia: Status: Chronic Code(s): E78.5 - Hyperlipidemia, unspecified Qualifiers: Hyperlipidemia type: mixed hyperlipidemia Qualified Code(s): E78.2 - Mixed hyperlipidemia Plan: *Continue home atorvastatin 80 mg p.o. at nighttime (6) Chronic pain: Status: Chronic Code(s): G89.29 - Other chronic pain Plan: *Continue Tylenol 500 mg p.o. every 6 hours as needed for mild to moderate pain 1-6. *Prescription sent for hydrocodone 5/325 p.o. 1 tablet every 6 hours x 7 days for severe pain 7-10 must follow-up with primary care. *Lidocaine patch prescription sent to patient's home pharmacy. 1 patch to the low back per day. (7) Chronic heart failure with preserved ejection fraction (HFpEF): Status: Acute Code(s): I50.32 - Chronic diastolic (congestive) heart failure Plan: *Recommend weekly weights and follow-up with primary care provider more than 5 pound gain in 1 week. (8) Anxiety with depression: Status: Acute Code(s): F41.8 - Other specified anxiety disorders Plan: *Sertraline hydrochloride 50 mg p.o. daily *BuSpar 5 mg p.o. 3 times daily *Psychotherapy referral at discharge. Suspected borderline personality disorder with uncontrolled anxiety. Plan *She has been diagnosed with obstructive sleep apnea in the past and states she cannot tolerate PAP therapy. Refused to wear the oxygen last night. She will follow up [facility] Dr. Arana for this. Continue therapy * Goal blood pressure is less than 135/80. Goal LDL is 70 or less. Goal hemoglobin A1c is 7 or less given recent strokes. * Order lidocaine patch for the localized area of pain in her left lower back. Will not increase the [place] dose. She sees chronic pain management as an outpatient and gets 95 Hidalgo a month. Medications at Discharge Home Medications omeprazole 20 mg capsule,delayed release 40 mg PO DAILY acid reflux 11/08/13 cholecalciferol (vitamin D3) 250 mcg (10,000 unit) tablet 1,250 unit PO QWEEK vitamin 11/15/14 aspirin 81 mg tablet,delayed release 81 mg PO BREAKFAST heart 90 days #90 tabs 07/26/24 atorvastatin 40 mg tablet 80 mg PO QHS cholesterol 05/03/25 lisinopril 10 mg tablet 10 mg PO DAILY bp #0 tabs 05/03/25 meclizine 12.5 mg tablet 12.5 mg PO 4X/DAY PRN PRN Dizziness #0 tabs 05/03/25 Remove Patch 1 patch topical DAILY@2200 30 days 05/09/25 acetaminophen 500 mg tablet 500 mg PO Q6H PRN PRN pain 1-3 7 days #28 tabs 05/09/25 albuterol sulfate 90 mcg/actuation aerosol inhaler 1 puff inhalation Q4H PRN Shortness Of Breath 30 days #8.5 grams 05/09/25 aspirin 81 mg tablet,delayed release 81 mg PO BREAKFAST 30 days #30 tabs 05/09/25 buspirone 5 mg tablet 5 mg PO TID 30 days #90 tabs 05/09/25 hydrocodone-acetaminophen 5-325mg 5mg-325mg 1 tab PO Q6H PRN PRN Pain Score 4-10 6 days #20 tabs 05/09/25 ipratropium bromide 42 mcg (0.06 %) nasal spray 2 spray NASAL BID 30 days #15 mL 05/09/25 lidocaine 5 % topical patch 1 patch topical DAILY 30 days #30 ea 05/09/25 ondansetron 4 mg disintegrating tablet 4 mg PO Q8H PRN PRN Nausea/Vomiting 7 days #21 tabs 05/09/25 sennosides 8.6 mg-docusate sodium 50 mg tablet (Stimulant Laxative Plus) 2 tab PO BID 14 days #56 tabs 05/09/25 sertraline 50 mg tablet 50 mg PO DAILY 30 days #30 tabs 05/09/25 sodium chloride 0.65 % nasal spray aerosol (Deep Sea Nasal) 2 spray NASAL BID PRN PRN NASAL DRYNESS 4 days #44 mL 05/09/25 Physical Exam Const alert and oriented x3 Constitutional Narrative: Extremely hard of hearing. speech therapist brought up the external amplifier and she seems to do better when she has this on. She is cooperative. She attributes her diarrhea/belching to Metformin which was just started Tuesday. General Appearance: cooperative Orientation / Consciousness: awake, oriented to person, oriented to place and oriented to time HEENT normocephalic General Ear: hearing grossly impaired Resp normal respiratory effort and clear to auscultation bilaterally Effort and Inspection: able to speak in complete sentences Auscultation: clear to auscultation bilaterally and diminished lung sounds Cardio regular rate, regular rhythm and no gallops Heart Sounds: other Other Details: Soft murmur. GI normal to inspection, nondistended, normoactive bowel sounds, soft to palpation, non-tender and non-distended Back/Spine Back/Spine Narrative: Patient has chronic low back pain. Extremity normal to inspection and no pedal edema Skin General Skin Exam: no breakdown Rashes: no rashes Psych Psych Narrative: Tends to be very manipulative with nursing and therapies. When she is in her room by herself she is in no distress when she is observed without her noticing it, she is in no distress but upon staff entering the room she begins moaning and complaining of pain. She is gone as far as to contact her primary care provider to complain about uncontrolled pain she is experiencing here in the inpatient rehab unit. Weight / BMI Weight Weight: 137 lb 12.623 oz Body Mass Index (BMI) 26.0 ABG / Lab / Microbiology Data Attestation: I reviewed the patient's lab results. 05/07/25 08:04 05/07/25 07:58 Laboratory: Laboratory Results - last 24 hr 05/08/25 11:10: Urine Color Yellow, Urine Clarity Clear, Urine pH 6.0, Ur Specific [place] 1.010, Urine Protein 15 H, Urine Glucose (UA) Normal, Urine Ketones Negative, Urine Occult Blood Negative, Urine Nitrite Negative, Urine Bilirubin Negative, Urine Urobilinogen Normal, Ur Leukocyte Esterase Negative, Urine RBC 0 SEEN, Urine WBC 0 SEEN, Ur Squamous Epith Cells 0-5 SEEN, Urine Bacteria 0 SEEN, Urine Mucus 0 SEEN 05/08/25 11:29: POC Glucose 101 05/08/25 16:36: POC Glucose 116 H 05/08/25 20:11: POC Glucose 131 H 05/09/25 05:44: POC Glucose 123 H Microbiology: Microbiology 05/06/25 12:00 Stool Stool Lactoferrin - Final 05/06/25 12:00 Stool Enteric Bacteriology - Final Indicators for Scoring Admitted with or Primary Diagnosis of CVA/Stroke: Yes Hx of CVA/Stroke: Yes (Demonstrated on an MRI she had at [facility] on 04/29/2025.) Modified [place] Score MRS Score at time of Evaluation: 4-Moderate/severe disability NIHSS NIHSS 1a. Level of Consciousness: 0 - Alert; keenly responsive 1b. LOC Questions: 0 - Answers BOTH questions correctly 1c. LOC Commands: 0 - Performs BOTH tasks correctly 2. Best Gaze: 0 - Normal 3. Visual: 0 - No visual loss 4. Facial Palsy: 0 - Normal symmetrical movements 5a. Left Arm: 0 - No drift; arm holds 90 (or 45) degrees for full 10 seconds 5b. Right Arm: 0 - No drift; arm holds 90 (or 45) degrees for full 10 seconds 6a. Left Le - No drift; leg holds 30-degree position for full 5 seconds 6b. Right Le - No drift; leg holds 30-degree position for full 5 seconds 7. Limb Ataxia: 2 - Present in 2 limbs 8. Sensory: 1 - Jjme-rs-byeodlst sensory loss; 9. Best Language: 0 - No aphasia; normal 10. Dysarthria: 0 - Normal 11. Extinction and Inattention: 0 - No abnormality Total: 3 D/C Instructions Diet Diet Order/Speech Therapy: INPATIENT Hospital Diet / Speech Therapy Order(s) 05/04/25 10:52 Diet: Cardiac: Calorie-Controlled Dietary Modifications:: Consistent Carbohydrate How many daily calories?: 1800 calorie Discharge Activity: May Not Drive and Use Walker (as needed ) Call your doctor if you observe: Fever of 101 or Higher, Numbness or Tingling, Inability to urinate, Inability to have a bowel movement, Shortness of breath, Dizziness, Fainting spells, Swelling in the ankles, Chest pain, Increased palpitations (irregular heartbeat), Calf discomfort and Uncontrolled pain DC O2, CPAP, BIPAP Needs PSN CPAP & BiPAP: BiPAP & CPAP Settings per PSN Fraction of Inspired Oxygen ( 21 05/03/25 21:38 FIO2) Please Follow Up With: Lorena Arana DO When: per scheduled appointment Meaningful Use Info Ischemic Stroke Anticoagulant at discharge?: No Reason anticoagulant not ordered: Treatment not Indicated Statin Dosing Therapy Reference: STATIN DOSE THERAPY REFERENCE: * Patients > 75 years receive moderate or high dose statin therapy. * Patients 75 years or YOUNGER should receive HIGH intensity statin dose unless contraindicated. You will be required to document reason for non-treatment if statin daily dose does not meet guidelines. HIGH DOSE STATIN THERAPY DAILY Atorvastatin > than or = to 40 mg Rosuvastatin > than or = to 20 mg Amlodipine + Atorvastatin > than or = to 2.5/40 mg Ezetimibe + Simvastatin 10/80 mg Simvastatin 80mg VTE Anticoag overlap given w/in hospital stay or rx'd at dc?: Yes Pt receive overlap for 5 days?: Yes Discharge Plan Admission Admit Date/Time: 05/03/25 14:50 Primary Reason for Your Visit: debility s/p CVA Attending Provider: Mirian Mesa Primary Care Provider: Lorena Arana Instructions Patient Instructions: What Is Ischemic Stroke?, Stroke: Resources and Support, Stroke: Self-Care Discharge Orders/Prescriptions Prescriptions: New buspirone 5 mg Tablet 5 mg PO TID 30 Days Qty: 90 0RF hydrocodone-acetaminophen 5-325 mg Tablet 1 tab PO Q6H PRN PRN (Reason: Pain Score 4-10) 6 Days Qty: 20 0RF aspirin 81 mg Tablet,Delayed Release (Dr/Ec) 81 mg PO BREAKFAST 30 Days Qty: 30 0RF lidocaine 5 % Adhesive Patch,Medicated 1 patch topical DAILY 30 Days Qty: 30 0RF Protocol: *Topical Application Instructions APPLICATION INSTRUCTIONS: apply to the painful area in the Left low back albuterol sulfate 90 mcg/actuation Hfa Aerosol Inhaler 1 puff inhalation Q4H PRN (Reason: Shortness Of Breath) 30 Days Qty: 8.5 0RF ipratropium bromide 42 mcg (0.06 %) [place],Non-Aerosol 2 spray NASAL BID 30 Days Qty: 15 0RF sennosides-docusate sodium [Stimulant Laxative Plus] 8.6-50 mg Tablet 2 tab PO BID 14 Days Qty: 56 0RF ondansetron 4 mg Tablet,Disintegrating 4 mg PO Q8H PRN PRN (Reason: Nausea/Vomiting) 7 Days Qty: 21 0RF sertraline 50 mg Tablet 50 mg PO DAILY 30 Days Qty: 30 0RF Deep Sea Nasal 0.65 % Aerosol,[place] 2 spray NASAL BID PRN PRN (Reason: NASAL DRYNESS) 4 Days Qty: 44 0RF Remove Patch 1 patch topical DAILY@2200 30 Days 0RF acetaminophen 500 mg Tablet 500 mg PO Q6H PRN PRN (Reason: pain 1-3) 7 Days Qty: 28 0RF Continued omeprazole 20 MG capsule 40 mg PO DAILY cholecalciferol (vitamin D3) 10,000 UNIT tablet 1,250 unit PO QWEEK Patient Comments: takes it on mondays Rx Instructions: 1250 units atorvastatin 40 mg tablet 80 mg PO QHS meclizine 12.5 mg Tablet 12.5 mg PO 4X/DAY PRN PRN (Reason: Dizziness) Qty: 0 0RF lisinopril 10 mg Tablet 10 mg PO DAILY Qty: 0 0RF aspirin 81 mg tablet,delayed release (DR/EC) 81 mg PO BREAKFAST 90 Days Qty: 90 3RF Discontinued hydrocodone-acetaminophen 1 TABLET tablet 1 - 2 tab PO Q4H PRN PRN (Reason: Pain) Qty: 20 0RF albuterol (refill) 90 mcg/actuation Aerosol 90 mcg INHALATION PRN PRN (Reason: SOB) Referrals / Follow Up: Lorena Arana DO [Primary Care Provider, Internal Medicine] - 05/13/25 2:30 pm Guido Simpson MD [Non-Staff -Ordering Privileges, Neurology] - 05/27/25 10:30 am Referral Note: you will see HECTOR-Kristin Ramos Disposition Disposition (needs filled in before D/C Order can be placed): Home Health Service Charges/Coding Visit Charges Inpatient E&M: 81507 Disch Hosp >30min Hospital Course RU Operations None Procedures None Summary of Care Provided Minutes Spent on Discharge: 90 Hospital Course: Abbey Hickman is an 79-year-old female with past medical history of hypertension, diabetes mellitus 2, hyperlipidemia on atorvastatin 40 daily admission, chronic pain syndrome who follows with pain management, presbycusis, left atrial enlargement, moderate obstructive sleep apnea and not receiving treatment, mild aortic stenosis, stage II diastolic dysfunction on echocardiogram was done 06/24, moderate asymmetrical septal hypertrophic. 06/24, pulmonary hypertension with a PA pressure of 45 as of June 2021, chronic estrogen use, remote history of bladder mass that was resected in 2021 negative for malignancy, cerebral ischemic white matter disease and macular degeneration. She presented to the emergency department on 05/01/2025 with right sided numbness and tingling. She did have a MRI done in [place] on 04/29/2025 because she had been complaining of alteration in taste and smell. Interpretation of the MRI is diffusion and FLAIR abnormality involving the left [place] with minimal associated effacement. There were additional small curvilinear areas of subcortical enhancement on the left occipital lobe. 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 Patient attributed her symptoms initially to contrast dye as she had had a allergy in the past. Noncontrast CT of the brain was unremarkable for any acute processes. Her hemoglobin A1c was elevated at 7.9 and has not been on medications for diabetes. Triglycerides were elevated at 203. This could be result of her uncontrolled diabetes. She did have a echocardiogram showing an estimated EF of 65% with mild left atrial enlargement and minimal mitral valve and aortic valve insufficiencies. She did have some mild aortic stenosis. She did have a 14-day event monitor in July 24 that showed no atrial fibrillation or severe abnormalities although patient did describe symptoms during this time that did not correlate with her event monitor. She did have a stress test in June 2024 that showed no diagnostic ECG changes. She did have a small reversible apical perfusion deficit and mild intensity suggestive of mild ischemia on assessment. Overall, low risk stress test with less than 5% of myocardial risk. She did follow-up with the [place] [facility] in which they reported no interventions needed. She has been on an estrogen patch since her hysterectomy in 1996. That has been removed and discontinued. This may be a contributing factor to her CVA in addition to her hypertension, uncontrolled diabetes and untreated SUZIE. She did have a sleep study was ordered in 2012 and it showed moderate obstructive sleep apnea syndrome. Respiratory events were associated with frequent arousals as well as oxygen desaturations. Positive pressure therapy was recommended at that time but she could not tolerate it. She is not on O2 at night. Patient was admitted to the acute inpatient rehab unit on 04/03/2025 for 3 hours of daily therapies to assist in improving/restoring function and independence at our near functional level prior to her stroke. During admission her lisinopril was increased from 5 mg p.o. daily to 10. Her blood pressure has ranged from 143/74-1 64/76. Heart rate has been within normal limits. She did maintain appropriate oxygen saturations on room air. There was some compliance issues with wearing her oxygen at night as many times she would refuse. Her labs were stable. She does have history of chronic nausea in which she does have Zofran available to her. There were multiple occasions where she was observed in the room by herself in which she was in no acute distress but wants staff would enter the room she would begin hunching over and complaining of severe pain and nausea. She appears to doing better when she is distracted and able to perseverate on chronic low back pain in the left paravertebral area. She did report relief of pain with the addition of lidocaine patches applied to the low back daily. Functionally she is able to dress herself with standby supervision. She completed functional mobility from the bathroom to the bed with no devices and contact-guard assist. She does still complain right leg numbness. Patient does have severe anxiety in which she was given BuSpar 5 mg p.o. 3 times daily which has been assisting with her anxiety. There was an addition of Zoloft 50 mg p.o. daily which was started upon admission. Prescriptions for both of these have been sent to the patient's home pharmacy. Patient is severely hard of hearing. Recommend auditory device for amplification. Patient will be following up with pain management as well as her primary care provider after discharge for continued management of her acute and chronic illnesses. Documented by User: Dr. Napoleon Diaz MD 05/09/25 11:41 Providers Date of Admission: 05/03/25 Reason For Visit: CVA Diagnosis Discharge Diagnosis (1) Debility: Status: Acute Code(s): R53.81 - Other malaise (2) Stroke: Status: Acute Code(s): I63.9 - Cerebral infarction, unspecified (3) Type 2 diabetes mellitus with hyperglycemia: Status: Acute Code(s): E11.65 - Type 2 diabetes mellitus with hyperglycemia (4) Essential (primary) hypertension: Status: Acute Code(s): I10 - Essential (primary) hypertension (5) Hyperlipidemia: Status: Chronic Code(s): E78.5 - Hyperlipidemia, unspecified Qualifiers: Hyperlipidemia type: mixed hyperlipidemia Qualified Code(s): E78.2 - Mixed hyperlipidemia (6) Chronic pain: Status: Chronic Code(s): G89.29 - Other chronic pain (7) Chronic heart failure with preserved ejection fraction (HFpEF): Status: Acute Code(s): I50.32 - Chronic diastolic (congestive) heart failure (8) Anxiety with depression: Status: Acute Code(s): F41.8 - Other specified anxiety disorders Medications at Discharge Home Medications omeprazole 20 mg capsule,delayed release 40 mg PO DAILY acid reflux 11/08/13 cholecalciferol (vitamin D3) 250 mcg (10,000 unit) tablet 1,250 unit PO QWEEK vitamin 11/15/14 aspirin 81 mg tablet,delayed release 81 mg PO BREAKFAST heart 90 days #90 tabs 07/26/24 atorvastatin 40 mg tablet 80 mg PO QHS cholesterol 05/03/25 lisinopril 10 mg tablet 10 mg PO DAILY bp #0 tabs 05/03/25 meclizine 12.5 mg tablet 12.5 mg PO 4X/DAY PRN PRN Dizziness #0 tabs 05/03/25 Remove Patch 1 patch topical DAILY@2200 30 days 05/09/25 acetaminophen 500 mg tablet 500 mg PO Q6H PRN PRN pain 1-3 7 days #28 tabs 05/09/25 albuterol sulfate 90 mcg/actuation aerosol inhaler 1 puff inhalation Q4H PRN Shortness Of Breath 30 days #8.5 grams 05/09/25 aspirin 81 mg tablet,delayed release 81 mg PO BREAKFAST 30 days #30 tabs 05/09/25 buspirone 5 mg tablet 5 mg PO TID 30 days #90 tabs 05/09/25 hydrocodone-acetaminophen 5-325mg 5mg-325mg 1 tab PO Q6H PRN PRN Pain Score 4-10 6 days #20 tabs 05/09/25 ipratropium bromide 42 mcg (0.06 %) nasal spray 2 spray NASAL BID 30 days #15 mL 05/09/25 lidocaine 5 % topical patch 1 patch topical DAILY 30 days #30 ea 05/09/25 ondansetron 4 mg disintegrating tablet 4 mg PO Q8H PRN PRN Nausea/Vomiting 7 days #21 tabs 05/09/25 sennosides 8.6 mg-docusate sodium 50 mg tablet (Stimulant Laxative Plus) 2 tab PO BID 14 days #56 tabs 05/09/25 sertraline 50 mg tablet 50 mg PO DAILY 30 days #30 tabs 05/09/25 sodium chloride 0.65 % nasal spray aerosol (Deep Sea Nasal) 2 spray NASAL BID PRN PRN NASAL DRYNESS 4 days #44 mL 05/09/25 ABG / Lab / Microbiology Data 05/07/25 08:04 05/07/25 07:58 D/C Instructions Diet Discharge order: Continue INPATIENT Hospital Diet / Speech Therapy Orders: Yes DC O2, CPAP, BIPAP Needs Home O2 Discharge instructions: No Meaningful Use Info Meaningful Use Meaningful Use Diagnoses (Choose all that apply): Ischemic CVA CVA Therapy Assessed for PT,OT and/or ST?: Yes Ischemic Stroke Antithrombotic order at d/c?: Yes Dx of Atrial fib/flutter?: No Statins at discharge?: Yes Primary Dx Acute Ischemic CVA?: Yes Discharge Plan Admission Admit Date/Time: 05/03/25 14:50 Primary Reason for Your Visit: debility s/p CVA Attending Provider: Mirian Mesa Primary Care Provider: Lorena Arana Instructions Patient Instructions: What Is Ischemic Stroke?, Stroke: Resources and Support, Stroke: Self-Care Discharge Orders/Prescriptions Prescriptions: New buspirone 5 mg Tablet 5 mg PO TID 30 Days Qty: 90 0RF hydrocodone-acetaminophen 5-325 mg Tablet 1 tab PO Q6H PRN PRN (Reason: Pain Score 4-10) 6 Days Qty: 20 0RF aspirin 81 mg Tablet,Delayed Release (Dr/Ec) 81 mg PO BREAKFAST 30 Days Qty: 30 0RF lidocaine 5 % Adhesive Patch,Medicated 1 patch topical DAILY 30 Days Qty: 30 0RF Protocol: *Topical Application Instructions APPLICATION INSTRUCTIONS: apply to the painful area in the Left low back albuterol sulfate 90 mcg/actuation Hfa Aerosol Inhaler 1 puff inhalation Q4H PRN (Reason: Shortness Of Breath) 30 Days Qty: 8.5 0RF ipratropium bromide 42 mcg (0.06 %) [place],Non-Aerosol 2 spray NASAL BID 30 Days Qty: 15 0RF sennosides-docusate sodium [Stimulant Laxative Plus] 8.6-50 mg Tablet 2 tab PO BID 14 Days Qty: 56 0RF ondansetron 4 mg Tablet,Disintegrating 4 mg PO Q8H PRN PRN (Reason: Nausea/Vomiting) 7 Days Qty: 21 0RF sertraline 50 mg Tablet 50 mg PO DAILY 30 Days Qty: 30 0RF [place] Nasal 0.65 % Aerosol,[place] 2 spray NASAL BID PRN PRN (Reason: NASAL DRYNESS) 4 Days Qty: 44 0RF Remove Patch 1 patch topical DAILY@2200 30 Days 0RF acetaminophen 500 mg Tablet 500 mg PO Q6H PRN PRN (Reason: pain 1-3) 7 Days Qty: 28 0RF Continued omeprazole 20 MG capsule 40 mg PO DAILY cholecalciferol (vitamin D3) 10,000 UNIT tablet 1,250 unit PO QWEEK Patient Comments: takes it on mondays Rx Instructions: 1250 units atorvastatin 40 mg tablet 80 mg PO QHS meclizine 12.5 mg Tablet 12.5 mg PO 4X/DAY PRN PRN (Reason: Dizziness) Qty: 0 0RF lisinopril 10 mg Tablet 10 mg PO DAILY Qty: 0 0RF aspirin 81 mg tablet,delayed release (DR/EC) 81 mg PO BREAKFAST 90 Days Qty: 90 3RF Discontinued hydrocodone-acetaminophen 1 TABLET tablet 1 - 2 tab PO Q4H PRN PRN (Reason: Pain) Qty: 20 0RF albuterol (refill) 90 mcg/actuation Aerosol 90 mcg INHALATION PRN PRN (Reason: SOB) Referrals / Follow Up: Lorena Arana DO [Primary Care Provider, Internal Medicine] - 05/13/25 2:30 pm Guido Simpson MD [Non-Staff -Ordering Privileges, Neurology] - 05/27/25 10:30 am Referral Note: you will see INFORMAT[employer] MDM DEVELOPER-Kristin Ramos Disposition Disposition (needs filled in before D/C Order can be placed): Home Health Service
[2025-05-09 18:00] VITALS: BP 134/64; PULSE 72; RESP 16; TEMP 36.7; O2SAT 95
[2025-05-09] MEDS: Senna/Docusate Sodium 1 Tablet 2 TABLET PO (20:29)
[2025-05-10] VITALS: O2SAT 98
[2025-05-10] MEDS: HYDROcodone Bitartrate/Apap 5/325 Tablet PO ×4 (02:38→22:17)
[2025-05-10 06:00] VITALS: BP 147/84; PULSE 93; RESP 18; TEMP 36.2; O2SAT 96
[2025-05-10] MEDS: Senna/Docusate Sodium 1 Tablet 2 TABLET PO (07:38)
[2025-05-10] MEDS: Aspirin E.C. 81 MG Tablet PO (07:39)
[2025-05-10] MEDS: Lidocaine 5% Patch 1 PATCH TOPICAL (07:39)
[2025-05-10 17:37] VITALS: BP 132/76; PULSE 90; RESP 18; TEMP 36.6; O2SAT 96
[2025-05-10 20:50] VITALS: BP 137/71; PULSE 77; RESP 17; O2SAT 94
[2025-05-11] VITALS: O2SAT 96
[2025-05-11] MEDS: HYDROcodone Bitartrate/Apap 5/325 Tablet PO (04:07)
[2025-05-11 04:10] VITALS: BP 121/62; PULSE 78; RESP 17; TEMP 36.6; O2SAT 99
[2025-05-11 07:13] VITALS: O2SAT 97
[2025-05-11] MEDS: Lidocaine 5% Patch 1 PATCH TOPICAL (07:42)
[2025-05-11] MEDS: Aspirin E.C. 81 MG Tablet PO (07:42)
[2025-05-11 07:49] VITALS: BP 131/62; PULSE 85
--- NOTE | 2025-05-11 09:10 | NURSING ---
Discharge to home. Patient and aware of instruct, heart monitor, and medication orders. aware to set up patients medications at home for her.
== END 2025-05-11 09:15 | disposition home health service (06) | DRG 57 ==
PROVIDERS: Family Medicine Geriatric Medicine; Admitting Provider Internal Medicine; PCP Internal Medicine; Visit Provider Internal Medicine
DX: I69.351 Hemiplegia and hemiparesis following cerebral infarction affecting right dominant side (principal); I50.32 Chronic diastolic (congestive) heart failure; I27.20 Pulmonary hypertension, unspecified; E11.65 Type 2 diabetes mellitus with hyperglycemia; J45.20 Mild intermittent asthma, uncomplicated; I11.0 Hypertensive heart disease with heart failure; I69.393 Ataxia following cerebral infarction; J44.9 Chronic obstructive pulmonary disease, unspecified; I25.10 Atherosclerotic heart disease of native coronary artery without angina pectoris; F41.8 Other specified anxiety disorders; F17.200 Nicotine dependence, unspecified, uncomplicated; E78.2 Mixed hyperlipidemia; R19.7 Diarrhea, unspecified; M54.50 Low back pain, unspecified; G47.33 Obstructive sleep apnea (adult) (pediatric); I69.398 Other sequelae of cerebral infarction; I69.322 Dysarthria following cerebral infarction; K21.9 Gastro-esophageal reflux disease without esophagitis; K44.9 Diaphragmatic hernia without obstruction or gangrene; Z79.899 Other long term (current) drug therapy; H91.90 Unspecified hearing loss, unspecified ear; F41.0 Panic disorder [episodic paroxysmal anxiety]; G89.4 Chronic pain syndrome; F51.04 Psychophysiologic insomnia; Z79.82 Long term (current) use of aspirin; Z79.891 Long term (current) use of opiate analgesic; Z79.890 Hormone replacement therapy; R20.2 Paresthesia of skin
CPT/HCPCS: 36415; 70450; 74018; 80048; 80053; 81001; 82306; 82962; 83630; 83735; 84100; 85025; 85027; 87506; 92507; 92523; 94668; 94762; 97110; 97112; 97162; 97165; 97530; 97535; 97802; 97803

== ENCOUNTER → 2025-05-17 | Outpatient (CLI) | payer MEDICARE, OTHER, SELFPAY ==
[2025-05-17 15:30] LABS: Magnesium 2.3 mg/dL (1.5-2.2); Potassium 3.8 mmol/L (3.3-5.1)
== END | disposition home or self-care (01) ==
LOC: MTLAB 13:16
PROVIDERS: PCP Internal Medicine; Referring Provider Internal Medicine; Visit Provider Internal Medicine
DX: E87.6 Hypokalemia (principal)
CPT/HCPCS: 36415; 83735; 84132

== ENCOUNTER → 2025-07-03 | Outpatient (CLI) | payer MEDICARE, OTHER, SELFPAY ==
[2025-07-03 11:02] LABS: Mucous, Urine 0 SEEN /hpf (<or=2+); Red Blood Cells-Urine 0 SEEN /hpf (0-5)
[2025-07-03 12:35] LABS: Hematocrit 37.9 % (37-47); Hemoglobin 12.4 g/dL (12.0-15.0); Immature Granulocytes Count 0.040 X10^3/uL (0.0-0.0); Mean Corp Hgb Conc 32.7 g/dL (32-36); Mean Corpuscular Volume 89.8 fL (81-99); Mean Platelet Vol. 11.6 fl (6.2-12.0); NRBC Flagged by Analyzer 0 % (0-5); Platelet Count 263 K/mm3 (150-450); RBC Distribution Width CV 12.7 % (11.6-14.6); RBC Distribution Width SD 41.9 fl (35.1-43.9); Red Blood Count 4.22 M/mm3 (4.2-5.4); White Blood Count 9.5 K/mm3 (4.4-11.0)
[2025-07-03 12:43] LABS: Color, Urine Straw (Yellow); Glucose, Dipstick Normal (Normal); Ketone-Dipstick Negative (Negative); Leukocyte Esterase-Dipstick Negative /ul (Negative); Nitrite-Dipstick Negative (Negative); Occult Blood-Urine Negative /ul (Negative); Protein-Dipstick Negative (Negative); Specific Gravity, Urine 1.010 (1.002-1.030); Urine Bilirubin Dipstick Negative (Negative)
[2025-07-03 12:59] LABS: Squamous Epithelial Cells - UA 0-5 SEEN /hpf (5-10)
[2025-07-03 13:19] LABS: AST(SGOT) 57 U/L (<=31); Alanine Aminotransfer ALT/SGPT 45 U/L (<=34); Albumin, Serum 4.1 g/dL (3.4-4.8); Alkaline Phosphatase 164 U/L (35-104); Anion Gap 11 (5-15); BUN 7 mg/dL (4-19); BUN/Creat Ratio 12.6 RATIO (10-20); Calcium,Total 9.9 mg/dL (7.6-11.0); Carbon Dioxide 26.6 mmol/L (21.0-32.0); Chloride 101 mmol/L (98-108); Cholesterol 115 mg/dL (<=200); Globulin 3.6 g/dL (2.2-4.2); Glucose 136 mg/dL (70-99); Low Density Lipoprotein Calc. 58 mg/dL; Potassium 3.9 mmol/L (3.3-5.1); Triglycerides 80 mg/dL; Very Low Density Lipoprotein 16 mg/dL (5-40); Vitamin D,25 Hydroxy 73.7 ng/mL (30-100); cholesterol:hdl ratio screen 2.83
[2025-07-03 13:24] LABS: Creatinine, Urine (random) 12.70 mg/dL (28.00-217.00); Microalbumin,Random Urine < 12.0 mg/L (<20 mg/L)
== END | disposition home or self-care (01) ==
LOC: CIMLAB 11:00
PROVIDERS: PCP Internal Medicine; Referring Provider Internal Medicine; Visit Provider Internal Medicine
DX: E78.2 Mixed hyperlipidemia (principal); E11.65 Type 2 diabetes mellitus with hyperglycemia; M85.80 Other specified disorders of bone density and structure, unspecified site
CPT/HCPCS: 36415; 80053; 80061; 81001; 82043; 82306; 82570; 84443; 85025

== ENCOUNTER → 2025-07-11 | Outpatient (CLI) | payer MEDICARE, OTHER, SELFPAY ==
[2025-07-11 18:20] LABS: Anion Gap 11 (5-15); BUN 10 mg/dL (4-19); BUN/Creat Ratio 16.9 RATIO (10-20); Calcium,Total 9.6 mg/dL (7.6-11.0); Carbon Dioxide 26.2 mmol/L (21.0-32.0); Chloride 103 mmol/L (98-108); Glucose 117 mg/dL (70-99); Magnesium 2.3 mg/dL (1.5-2.2); Potassium 4.2 mmol/L (3.3-5.1)
== END | disposition home or self-care (01) ==
LOC: CIMLAB 14:43
PROVIDERS: PCP Internal Medicine; Referring Provider Internal Medicine; Visit Provider Internal Medicine
DX: E87.6 Hypokalemia (principal)
CPT/HCPCS: 36415; 80048; 83735